=== PATIENT | male | born 1945 | race Caucasian/White ===

== ENCOUNTER → 2018-02-04 09:54 | Outpatient (CLI) | payer MEDICARE, SELFPAY | PROVIDERS: Family Provider Physician Assistant Medical; PCP Physician Assistant Medical; Visit Provider Internal Medicine | DX: E11.621 Type 2 diabetes mellitus with foot ulcer (principal); L97.522 Non-pressure chronic ulcer of other part of left foot with fat layer exposed; L97.512 Non-pressure chronic ulcer of other part of right foot with fat layer exposed | CPT/HCPCS: 11042 ==

== ENCOUNTER → 2018-02-11 09:28 | Outpatient (CLI) | payer MEDICARE, SELFPAY | PROVIDERS: Family Provider Physician Assistant Medical; PCP Physician Assistant Medical; Visit Provider Internal Medicine | DX: E11.621 Type 2 diabetes mellitus with foot ulcer (principal); L97.522 Non-pressure chronic ulcer of other part of left foot with fat layer exposed; L97.512 Non-pressure chronic ulcer of other part of right foot with fat layer exposed; M21.6X1 Other acquired deformities of right foot; Z91.19 Patient's noncompliance with other medical treatment and regimen | CPT/HCPCS: 11042 ==

== ENCOUNTER → 2018-02-18 14:44 | Outpatient (CLI) | payer MEDICARE, SELFPAY | PROVIDERS: Family Provider Physician Assistant Medical; PCP Physician Assistant Medical; Visit Provider Internal Medicine | DX: E11.621 Type 2 diabetes mellitus with foot ulcer (principal); L97.522 Non-pressure chronic ulcer of other part of left foot with fat layer exposed; L97.512 Non-pressure chronic ulcer of other part of right foot with fat layer exposed; L08.9 Local infection of the skin and subcutaneous tissue, unspecified | CPT/HCPCS: 11042; 87070; 87075; 87077; 87147; 87186; 87205 ==

== ENCOUNTER → 2018-02-22 08:30 | Outpatient (CLI) | payer MEDICARE, SELFPAY | PROVIDERS: Family Provider Physician Assistant Medical; PCP Physician Assistant Medical; Visit Provider Internal Medicine | DX: E11.621 Type 2 diabetes mellitus with foot ulcer (principal); L97.522 Non-pressure chronic ulcer of other part of left foot with fat layer exposed; L97.512 Non-pressure chronic ulcer of other part of right foot with fat layer exposed; B95.61 Methicillin susceptible Staphylococcus aureus infection as the cause of diseases classified elsewhere; B95.4 Other streptococcus as the cause of diseases classified elsewhere; M21.6X1 Other acquired deformities of right foot | CPT/HCPCS: 11042 ==

== ENCOUNTER → 2018-02-25 15:35 | Outpatient (CLI) | payer MEDICARE, SELFPAY | PROVIDERS: Family Provider Physician Assistant Medical; PCP Physician Assistant Medical; Visit Provider Internal Medicine | DX: E11.621 Type 2 diabetes mellitus with foot ulcer (principal); L97.522 Non-pressure chronic ulcer of other part of left foot with fat layer exposed; L97.512 Non-pressure chronic ulcer of other part of right foot with fat layer exposed; B95.61 Methicillin susceptible Staphylococcus aureus infection as the cause of diseases classified elsewhere; B95.4 Other streptococcus as the cause of diseases classified elsewhere | CPT/HCPCS: 11042 ==

== ENCOUNTER → 2018-03-01 13:27 | Outpatient (CLI) | payer MEDICARE, SELFPAY ==
--- NOTE | 2018-03-01 | OV.WND_ITS ---
Progress Note Details Patient Name: Nick Drake Patient Number: [id number] PatientPatientDate: 03/01/2018 Clinician: Rina Bentley Clinician Cosigner: Deanna Floyd Physician / Management Engineer: Nando Howe SUBJECTIVE Chief Complaint This information was obtained from the patient Diabetic ulcers to right and left foot. Allergies Minipress (Severity: Severe, Reaction: violent behavior), Vicodin (Severity: Mild, Reaction: itching), nortriptyline (Severity: Moderate), Avandia (Severity: Moderate) HPI This information was obtained from the patient 03/01/18. The patient continues to wear his UPPER SIOUX boot to offload the right foot 1st MTPJ diabetic ulcer and address the significant deformity associated with the partial lateral foot amputation. He does not report significant drainage associated with this ulcer nor the left plantar foot diabetic ulcer since his last. 02/25/18. Seen by Dr. Howe. The patient will complete his course of doxycycline today that's treating the Staph and group G Strep positive culture taken from the right foot diabetic ulcer. He does not report adverse side effects and nor significant drainage from the ulcer or the left plantar foot diabetic ulcer. 02/22/18. Seen by Dr. Howe. The patient is now on doxycycline for the Staph and group G Strep positive culture taken from the right foot diabetic ulcer last week. He notes some bloody drainage from this site on his dressing today but feels this ulcer and the left foot diabetic ulcer have improved over the past few week. He's offloading the right foot which has a partial lateral amputation using his UPPER SIOUX boot as recommended however he's not using a frame walker. He does not report adverse side effects of the antibiotics nor other acute issues today. 02/18/18. Seen by Dr. Howe. The staff report increased drainage associated with both plantar foot 1st MTPJ diabetic ulcers and the patient reports a malodor from the dressings over the past week. He does not report fevers, feeling unwell, or pain in the feet but states his blood sugars have been a bit elevated in the 180s. He's also wearing his UPPER SIOUX boot as recommended on the right foot but states he does not have enough room in his house to use a knee scooter and does not use his frame walker. 02/11/18. Seen by Dr. Howe. The patient continues to wear his UPPER SIOUX boot to offload the right foot 1st MTPJ diabetic ulcer and address the significant deformity associated with the partial lateral foot amputation. He does not report significant drainage associated with this ulcer nor the left plantar foot diabetic ulcer since his last visit however the nurse states the mole skin dressing was applied inappropriately over the left foot ulcer and was overlying the ulcer itself and soaked with drainage. 02/04/18. Seen by Dr. Howe. The patient continues to wear his UPPER SIOUX boot to offload the right foot 1st MTPJ diabetic ulcer and address the significant deformity associated with the partial lateral foot amputation. He does not report significant drainage associated with this ulcer nor the left plantar foot diabetic ulcer since his last visit. 01/28/2018. Seen by Dr. Howe. The patient is now wearing his UPPER SIOUX boot to offload the right foot 1st MTPJ diabetic ulcer and address the significant deformity associated with the partial lateral foot amputation. He does not report significant drainage associated with this ulcer nor the left plantar foot diabetic ulcer since his last visit. 01/26/18. Seen by Dr. Howe. The patient states he has been without his insulin for over a week which is likely the cause of his blood sugars being around 400 over the past few visits. He has also not contacted his orthotics provider regarding the offloading UPPER SIOUX boot to wear on the right foot noting his significant deformity caused by the partial lateral foot amputation. He has not report increased drainage or other acute changes regarding his bilateral diabetic foot ulcers and will complete his course of doxycycline its treated the recent MSSA positive culture tomorrow. He also reports nausea and one episode of emesis earlier today but not other acute issues. 01/21/2018. Seen by Dr. Howe. The patient arrived today with his right foot dressing upside down. His blood sugars are also over 400. The patient does not report increased drainage associated with the right or left diabetic foot ulcers however states his neuropathic pain has been significant over the past 2 days. He also is going to mushroom picker his UPPER SIOUX boot today to help facilitate offloading of the right foot diabetic ulcer noted in he also has a partial lateral amputation on his foot that is contributed significantly 2. Ulcer callus formation. He also continues on doxycycline for he recent MSSA positive wound culture. 01/18/2018. Seen by Dr. Howe. The patient's wound culture from the left foot diabetic ulcer grew MSSA resistant to gentamicin. He is not currently on oral antibiotics and does not report increased drainage from either left right foot diabetic ulcers and is still waiting for his UPPER SIOUX boot to be available to help facilitate better offloading of the right foot noting his partial lateral right foot amputation and severe Charcot deformity. 01/14/18. Seen by Dr. Howe. The patient continues to report moderate drainage from the right and left diabetic foot ulcers over the past few days and he's seen his laser systems engineer who's ordered a UPPER SIOUX boot for the right foot which should be available next week. He has severe bilateral Charcot deformities and partial right lateral foot amputation that contributes to the refractory nature of the ulcers and very heavy callus formation. 01/12/18. Seen by Dr. Howe. The patient reports moderate drainage from the right and left diabetic foot ulcers and he's seen his laser systems engineer who's ordered a UPPER SIOUX boot for the right foot. He has bilateral partial lateral foot amputations which have resulted in refractory calluses of the bilateral plantar MTPJ's and associated DFU's. His blood have been well controlled and his recent hypoglycemic episodes have resolved. 01/07/18. Seen by Dr. Howe. The patient missed his last 2 appointments due to a GI illness last week and she reports some pain in the lateral aspect of the right forefoot but no increased drainage, swelling, or other acute changes of the diabetic foot ulcer. He also does not report any acute issues regarding the left diabetic foot ulcer. Of note, he has significant deformities of both feet due to partial amputations which have each contributed significantly to severe callus formation and the refractory nature of the ulcers. 01/01/18. Seen by Dr. Howe. The patient continues on clindamycin for the chronic right diabetic foot ulcer infection and it is not reported adverse side effects. He also does not report significant drainage associated with either left or right diabetic foot ulcer since his last visit. 12/28/17. Seen by Dr. Howe. The patient does not report increased drainage associated with either right or left foot diabetic ulcers since his last visit. He continues on clindamycin without reporting adverse side effects to treat the chronic right ulcer infection and his blood sugars are well controlled. Of note, he has been attending clinic twice weekly to optimize management of his recurrent and severe apollo-ulcer calluses that are in part due to his severe Charcot deformities and bilateral partial foot amputations. 12/21/17. Seen by Dr. Howe. The patient reports some drainage associated with the right foot diabetic ulcer since his last visit but none associated with the left foot diabetic ulcer. He completed his course of doxycycline today is treating the recent MSSA positive wound culture and is reported adverse side effects, fevers, feeling unwell. He states his blood sugars continue to be well controlled below 180. 12/15/17. Cinthia Howe. The patient's wound culture from the left plantar foot diabetic ulcer his last visit grew MSSA resistant to gentamicin. He does not report increased drainage or pain from either diabetic foot ulcers since his last visit. 12/10/17. Seen by REN Olea. The patient does not report increased drainage from his bilateral diabetic foot ulcers but does report continued odor. Notes a large amount of callous growth. Wound culture from last week showed MSSA and Diphtheroids. He has been applying topical gentamicin. 12/03/17. Seen by Mitch Cota PA-C. The patient reports increased drainage and odor from his bilateral diabetic foot ulcers. He continues to have elevated blood sugars. 11/26/17. Seen by Mitch Cota PA-C. The patient reports that he has decreased his usage of marijuana which he uses for recreation and to treat his neuropathy. He has not had a ground level fall since decreasing his usage. His blood sugars remain >150 and his ulcers' drainage is stable. 11/20/17. Seen by Mitch Cota PA-C. The patient reports no increase in his ulcer drainage from his bilateral lower extremity diabetic ulcers. He has not scheduled an appointment to see his PCP to address his consistently high blood sugars. 11/13/17. Seen by Mitch Cota PA-C. The patient reports stable drainage from his diabetic foot ulcers and continued difficulty keeping his blood sugars below 150. He also reports not wearing his diabetic shoes when at home. 11/09/17. Seen by Mitch Cota PA-C. The patient reports high blood sugars again this week. He does not report increased drainage though he notes callous formation continues to happen quickly between visits. 11/06/17. Seen by Dr. Howe. The patient does not report increased drainage associated with the chronic bilateral diabetic foot ulcers since the last visit. 11/02/17. Seen by Mitch Cota PA-C. The patient reports no increased drainage from his bilateral diabetic foot ulcers. He is not surprised that his blood sugar is low this morning as he did not eat dinner yesterday or breakfast today, citing mild GI discomfort. 10/30/17. Seen by Dr. Howe. The patient missed a few appointments recently due to our facility power outage however he does not report increased drainage or other acute issues regarding his bilateral first MTPJ plantar foot diabetic ulcers. 10/23/17. Seen by Mitch Cota PA-C. The patient reports that he did not take his insulin, or eat this morning. Drainage from his diabetic foot ulcers has been stable. 10/15/17. Seen by Mitch Cota PA-C. The patient reports high blood sugars this week and stable drainage from his foot ulcers. 10/13/17. Seen by Dr. Howe. The patient does not report increased drainage associated with the bilateral plantar foot diabetic ulcers since his last visit. 10/01/17. Seen by Dr. Howe. The patient does not report increased drainage associated with either left or right plantar foot diabetic ulcers since his last visit. 10/01/17. Seen by Dr. Howe. The patient does not report increased drainage associated with either left or right plantar foot diabetic ulcers since his last visit. 09/28/17. Seen by Dr. Howe. The patient does not report increased drainage associated with either left or right plantar foot diabetic ulcers since his last visit. He has been offloading as recommended as well. 09/24/17. Seen by Dr. Howe. The patient reports some increased drainage associated with the right chronic diabetic foot ulcer but none with the left chronic diabetic foot ulcer since his last visit. His blood sugars have been well controlled and he does not report pain in either feet or fevers or feeling unwell. He had been seen twice weekly due to the recent deterioration of the right foot ulcer and need for frequent debridement of the periulcer callus. 09/16/17. Seen by Dr. Howe. The patient does not report significant drainage associated with the bilateral plantar foot diabetic ulcers since last visit and his blood sugars are well controlled over the past week. 09/11/17. Seen by Dr. Howe. The patient states that the right foot diabetic ulcer bled significantly earlier this week when he got out of the shower. He had his INR checked yesterday and it was 3.5. He does not report increased drainage otherwise from either the left or right foot diabetic ulcers since his last visit. He's been seen as twice weekly for the past 2 weeks due to the very heavy accumulation of callus associated with the right foot ulcer. 09/08/17. Seen by Dr. Howe. The patient does not report increased drainage associated with bilateral foot diabetic ulcers since his last visit. 09/04/17. Seen by Dr. Howe. The patient does not report significant drainage associated with the bilateral plantar foot diabetic ulcers since last visit and his blood sugars are well controlled over the past week. 08/31/17. Seen by Dr. Howe. The patient does not report increased drainage associated with the bilateral plantar foot diabetic ulcers since his last visit and he continues on doxycycline for the positive right foot ulcer wound culture. His blood sugars have been well- controlled for the past week and he has had no further episodes of hypoglycemia. 08/26/17. Seen by Dr. Howe. The patient is now on doxycycline resistant MSSA positive wound culture taken from his right diabetic foot ulcer and does not report other side effects. He has picked up his new diabetic shoes and is wearing them as recommended. His blood sugar today is 58 in clinic and he has recently had his short-acting insulin increased by his primary care provider due to frequent episodes of hyperglycemia. He is scheduled to see his PCP again tomorrow to discuss the changes. 08/18/17. Seen by Mitch Cota PA-C. The patient reports a foul odor from his bilateral foot ulcers. He reports that he is feeling much better after an ER trip for hypoxia and his recent O2 saturation readings have been 100%. 08/06/17. Seen by Dr. Howe. The patient reports feeling unwell along with progressive shortness of breath while at rest over the past week. He says he had a low- grade fever at home today and staff report is O2 sats in low 90s upon arrival. He has a history of COPD also with possible admission for pneumonia within the past year. He is here for review of chronic diabetic foot ulcers that have been relatively stable for the past few weeks. 07/28/17. Seen by Mitch Cota PA-C. The patient reports increased drainage and bleeding from his diabetic foot ulcers. 07/20/17. Seen by Mitch Cota PA-C. The patient reports no increase in ulcer drainage since his last evaluation. 07/16/17. Seen by Mitch Cota PA-C. The patient has recently been in hospital where he had a NON-STEMI. He reports a reduction in drainage and wound odor after starting Augmentin. 07/01/17. Seen by Dr. Howe. The patient does not report significant drainage associated with the chronic bilateral plantar foot diabetic ulcers since his last visit. He will be picking up his new diabetic shoes today noting his partial right lateral foot amputation and multiple bilateral toe amputations plus Charcot deformity of both feet are contributing significantly to the recurrent heavy callus formation in the apollo-ulcer areas. He also states that he has not been covering his feet when he is in the shower despite our recommendation to do so. 06/19/17. Seen by Dr. Howe. The patient does not report significant drainage associated with the chronic bilateral plantar MTPJ diabetic ulcers since his last visit. Of note , the patient's blood sugar is 42 in clinic and was 35 earlier this morning. He's mildly symptomatic and is with his son who states the patient's food intake has been a bit less than usual due to limited funds at the end of the month. The patient also admits to trying to keep his blood sugars below 140 at all times and has had the problem of hypoglycemia in our clinic a number of times over the past year. 06/12/17. Seen by Dr. Howe. The patient does not report significant drainage associated with the chronic bilateral plantar MTPJ diabetic ulcers since his last visit. 06/05/17. Seen by Dr. Howe. The patient does not report significant drainage associated with the chronic bilateral plantar MTPJ diabetic ulcers since his last visit. He continues on Augmentin based on the recent wound culture and does not report adverse side effects. He also was seen by Dr. Garcia and his new diabetic shoes have been ordered noting his significant history of right lateral foot amputation and multiple toe amputations plus bilateral Charcot deformities. 05/29/17. Seen by Dr. Howe. The patient's wound culture from 2 days ago of a new right foot diabetic ulcer grew Streptococcus as well as Staph. He does not report increased drainage from this ulcer nor the chronic left foot diabetic ulcer. He is also not yet been seen by podiatry although we did send the referral over a couple weeks ago. His blood sugars continue to be well controlled and of note he has had extensive amputations of both the lateral aspect of the right foot as well as toes on both feet which has contributed significantly to recurrent callus and diabetic ulcer formation. 05/27/17. Seen by Mitch Cota PA-C. The patient reports a new ulcer to his right great toe that he believes has been continuously present for about a week. He denies any trauma to the area though states he may have been walking more lately. He is insensate and notes no pain, though he has seen purulent drainage in the area and notes a foul odor. 05/12/17. Seen by Dr. Howe. The patient does not report significant drainage associated with the chronic left plantar foot diabetic ulcer and he notes that heavy callus again has formed on the right plantar foot surface at the site of his recently healed diabetic ulcer. He has severe bilateral Charcot deformities along with multiple toe amputations that are contributing significantly to health information and the refractory and recurrent nature of his diabetic foot ulcers. He's also asked for us to address his toe nails today as it's been weeks since they've been trimmed. 05/05/17. Seen by Dr. Howe. The patient presents today with low blood sugars in the 40's and states he is feeling unwell in the waiting room. Upon my review he is lucid and eating and his blood sugars have increased into the 50s. He does not report any new problems regarding his chronic left foot diabetic ulcer and states that he has not discussed his hypoglycemia with his primary care provider yet despite having a number of episodes throughout the month. 04/28/17. Seen by Dr. Howe. The patient reports recurrence of his left plantar foot diabetic ulcer over the past week along with some new drainage that's quite malodorous. He does not report pain in the foot nor fevers nor any acute issues regarding his right lateral foot diabetic ulcer. He states his blood sugars continue to be well controlled with most below 120. 04/21/17. Seen by Dr. Howe. The patient does not report pain or drainage associated with the chronic right foot diabetic ulcers since his last visit. 04/14/17. Seen by Dr. Howe. The patient does not report pain or drainage associated with the chronic right foot diabetic ulcers since his last visit. His work diabetic shoe as recommended noting he is a partial right foot and right second toe amputations along with a significant Charcot deformity. 04/07/17. Seen by Dr. Howe. The patient does not report significant drainage or pain associated with the chronic right lower leg diabetic ulcers since his last visit. He snoring softly and she was recommended and reports his blood sugars have been well controlled. Of note, his significant deformity of the right foot including partial lateral amputation as well as second toe amputation and a significant Charcot deformity. 04/02/17. Seen by Dr. Howe. The patient reports that a coin accidentally fell into his right lower leg total contact cast a couple days ago. The staff found a johnson upon removing the cast as well as a new ulcer over the lateral aspect of the right foot. The patient does not report pain at the site nor does staff report significant drainage associated with new ulcer nor the chronic right plantar foot diabetic ulcer. The patient's blood sugars continue to be well controlled and he has no other acute complaints at this time. 03/28/17. Seen by Mitch Cota PA-C. The patient's recent wound culture demonstrated no growth. He has not noted increased drainage since his last evaluation. 03/23/17. Seen by Mitch Cota PA-C. The patient reports no increase in right foot ulcer drainage since his last evaluation. In addition his wound culture demonstrated no growth. 03/17/17. Seen by Dr. Howe. The patient does not report increased drainage associated with the chronic right first MTPJ diabetic ulcer.He completed his course of antibiotics that was treating the recent positive wound culture and does not report adverse side effects. He continues offload with a surgical shoe as well. 03/09/17. Seen by Dr. Howe. The patient does not report pain or significant drainage associated with the recurrent right foot diabetic ulcer. His culture of the ulcer was positive for a staph organism and Acinetobacter however he's not yet been started on antibiotics. He states his blood sugars continue to be well-controlled with most below 150. 03/02/17. Seen by Mitch Cota PA-C. The patient reports no improvement in drainage from his diabetic ulcer of the right foot. He has noted odor at times coming from the ulcer. 02/23/17. Seen by Mitch Cota PA-C. The patient reports no increase in drainage from his diabetic ulcer of the right foot. 02/09/17. Seen by Mitch Cota PA-C. The patient reports that he has just begun taking Bactrim for his infection of his right foot diabetic ulcer. He reports continued purulent drainage and odor. 02/02/17. Seen by Mitch Cota PA-C. The patient returns to our clinic with a new ulcer of his right first metatarsal head. He reportedly smacked his foot hard on the floor, creating this ulcer, in an attempt to stop an episode of neuropathy. 11/10/16. Seen by Mitch Cota PA-C. The patient returns for evaluation of his recently healed ulcer, fearing that it is open again. He has not seen liquid drainage but fears it is draining under the callous. 11/04/16. Seen by Mitch Cota PA-C. The patient does not report any difficulties with his TCC this week. 10/24/16. Seen by Dr. Howe. The patient does not report any problems regarding his TCC and staff do not repot significant drainage on the dressing overlying the left plantar foot diabetic ulcer. His blood sugars remain well controlled with most below 150. 10/20/16 Seen by Mitch Cota PA-C. The patient is here for placement of a TCC to offload his left plantar foot diabetic ulcer. He notes that the drainage from his ulcer has soaked through the TCC under-layers and almost soaked through the cast. 10/15/16. Seen by Dr. Howe. The patient tolerated his TCC with minimal discomfort noting mild pain in the left 1st toe. The staff do not report significant drainage associated with the chronic left plantar foot diabetic ulcer and he states his blood sugars are mostly below 150. He's now been placed in a TCC to optimize offloading needed to accommodate for the left foot Charcot deformity that's lead to recurrent heavy callus formation in the periulcer area. 10/13/16 Seen by Mitch Cota PA-C. The patient reports no increase in drainage from his left foot diabetic non-pressure ulcer since his last evaluation. 09/29/15 Seen by Mitch Cota PA-C. The patient reports no increase in drainage from his chronic left foot diabetic ulcer. He does voice frustration that his wound is taking so long to heal. 09/19/16. Seen by Dr. Howe. The patient does not report increased drainage or other acute issues regarding his chronic left plantar foot diabetic ulcer since his last visit. 09/12/16. Seen by Dr. Howe. The patient does not report significant drainage associated with the chronic left plantar foot diabetic ulcer over the past week. He's applying Kerasal to the periwound callus as recommended and has limited his walking considerably, in addition to wearing an offloading shoe, to minimize callus formation. His blood sugars also remain well controlled with most below 150 and he continues on Bactrim for an infection of the ulcer without reporting adverse side effects. 09/05/16. Seen by Dr. Howe. The patient returns to clinic with recurrent of his left plantar foot diabetic ulcer that he states reopened about 2 weeks ago. He was placed on Keflex by his PCP yesterday due to the appearance of the ulcer and significant drainage. He states his blood sugars are well controlled and he limits his walking to help facilitate offloading. 07/28/16. Seen by Dr. Howe. The patient does not report significant drainage associated with the chronic left plantar foot diabetic ulcer over the past week. He's applying Kerasal to the periwound callus as recommended and states his blood sugars are consistently below 150. He does report ongoing nausea for the past few weeks and states he's on 3 nausea medications but does not know what's causing it. He's working with his PCP on this problem. 07/15/16 Seen by Mitch Cota PA-C. The patient reports no fever chills or pain from his left foot diabetic ulcer since his last evaluation. 07/10/16. Seen by Dr. Howe. The patient does not report significant drainage associated with the chronic left plantar foot diabetic ulcer over the past week. He's applying Kerasal to the periwound callus as recommended and has limited his walking considerably, in addition to wearing an offloading shoe, to minimize callus formation. 07/08/16 Seen by Mitch Cota PA-C. The patient reports no increase in pain or drainage from his ulcer, though he does report nausea and vomiting. After further review, it appears that his PPI prescription has run out and he stopped it abruptly. He has not had associated fever, chills or lower GI symptoms. His blood sugars have reportedly been above 150 this week. The patient reports that he still has problems with callous formation on his feet and will be seeing podiatry. 07/04/16. Seen by Dr. Howe. The patient does not report significant drainage associated with the chronic left plantar foot diabetic ulcer since his last visit. He does report significant nausea and vomiting over the past week however but does not report fever, cough, or other specific symptoms and feels the nausea has started to improve as of yesterday. He states his blood sugars have been well controlled with most below 150 and he's on Augmentin for the recent MSSA and Strep positive wound culture. He's also been applying Kerasal to the periwound callus as recommended and has been limited in his walking the past week due to illness. 06/23/16 Seeb by Mitch Cota PA-C. The patient reports that he believes he has an infection in his foot because his dog has been sniffing and licking his open ulcer. He believes his dog has a nose for infection. He reports a continuous, strong, foul odor from his left plantar foot ulcer for the past 3 days with an associated increase in drainage. In addition he has not been offloading his foot as instructed and is going barefoot at home. 06/16/16 Seen by Mitch Cota PA-C. The patient reports that he is walking barefoot in the house and only wears shoes outside the house. His left foot diabetic ulcer drainage has been stable. 06/02/16 Seen by Mitch Cota PA-C. The patient reports that he is due to have a new orthotic fitted for his deformed left foot to further offload his chronic left foot ulcer. He reports stable drainage from this ulcer. 05/27/16 Seen by Mitch Cota PA-C. The patient reports that he now has a new wound near his chronic left plantar foot diabetic ulcer. The new wound began spontaneously and was noted today. His chronic ulcer has had stable drainage. 05/19/16. Seen by Dr. Howe. The patient does not report significant drainage associated with the chronic left plant foot diabetic ulcer over the past week and he states his blood sugars are well controlled with most below 150. 05/12/16. Seen by Dr. Howe. The patient reports some new pain along the right foot surgical scar but no swelling or drainage from the site. He does not recall injuring the foot and feels he may have been more active over the past week. He does not report significant or drainage associated with the left plantar foot diabetic ulcer and states he's not been able to check his blood sugars due to the fact he ran out of glucometer strips this past week. His blood sugar today is 280. 04/11/16. Seen by Dr. Howe. The patient does not report pain or drainage associated with the chronic right lateral foot diabetic ulcer of the past week. He states his blood sugars are consistently below 150 and he is wearing his offloading shoe is recommended. 04/04/16. Seen by Dr. Howe. 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 He states his blood sugars are mostly below 150 and he's offloading using a surgical offloading shoe. He's now off of antibiotics and is here today with his granddaughter who's assisting with his care. 03/31/16 Seen by Mitch Cota PA-C. The patient has returned from [facility] where he had a 4th ray amputation performed to his right foot. He reports that he was supposed to have follow up appointments with surgery, cardiology and wound care but has not attended any of these appointments due to transportation difficulties. He is unsure of when his sutures are supposed to be removed. 02/28/16 Seen by Mitch Cota PA-C. The patient was seen at [facility] and evaluated by Dr. Monae on an urgent basis as arranged by Dr. Howe at his last visit. The patient reports that Dr. Monae wanted to urgently take him to surgery but the patient would prefer to have Dr. Garcia do it and refused admission to the hospital. 02/21/[address] Howe. The patient does not report pain or significant drainage associated with the Alonzo grade 3 right lateral foot diabetic ulcer and he saw Dr. Garcia , podiatry, this morning who reportedly states she's not able to perform any additional debridement until his right leg vascular status is further evaluated. He had an arterial Doppler scheduled yesterday however both the patient and his son state they were unaware of the appointment. He started taking his Augmentin, which is treating the MSSA and Strep viridans culture from 02/15/16, following the last visit as recommended, states his blood sugars have been consistently below 150 over the past week, and he's offloading by wearing a surgical shoe and significantly limiting his walking. Of note, he's still on supplemental oxygen following his recent hospital discharge and gets short of breath on minimal exertion. Please see my note below from his last visit regarding details of the admission and amputation. 02/15/[address] Howe. The patient does not report pain associated with the right lateral foot diabetic ulcer. He was discharged 4 days ago following a partial ray amputation of the 5th toe and MT due a progressive foot infection that he states occurred over about 2 days prior to being admitted to the hospital. His wound culture on arrival to the ER was polymicrobial and reported on Group C Strep. He was treated with IV Zosyn during the admission and prescribed Augmentin on discharge however he's not yet picked up the prescription. His blood sugars have been relatively well controlled with most below 150 since discharge. Of note, he also had a non-ST elevation VA post-operatively, acute on chronic renal failure with a Cr of 1.8 on discharge, and acute respiratory failure and continues on supplemental oxygen. 12/27/[address] Howe. The patient does not report drainage or pain associated with the chronic right plantar foot diabetic ulcer over the past week. He's not been applying Kerasal to the associated callus as recommended however he does not have diabetic shoes and a new AFO that he's been wearing. His blood sugars also remain relatively well controlled below 150 consistently. 12/06/[address] Howe. The patient does not report pain or significant drainage from the chronic right plantar foot diabetic ulcer. His blood sugars remain well controlled around 120 and he's now wearing his new diabetic shoes and offloading by limiting his walking significantly. He's also applying Kerasal daily to the right foot calluses as recommended. 11/29/[address] Howe. The patient does not report significant drainage from the chronic right plantar foot diabetic ulcer and he states his blood sugars remain well controlled below 150. He's also wearing his diabetic shoes now and limiting his walking to facilitate offloading. 11/23/[address] Howe. The patient reports moderate drainage but no pain associated with the chronic right plantar foot diabetic ulcer. He continues on doxycycline for a polymicrobial positive wound culture and he states his blood sugars remain well controlled with most below 120. 11/15/[address] Howe. The patient's wound culture from the last visit grew Enterobacter, Staph, and group G Strep however he's not yet picked up his prescription for doxycycline. He has at least moderate serosanquinous drainage on the dressing and states he's been a bit more active this past week as his son has been sick and unable to do the shopping. His blood sugar was also elevated yesterday near 200 but has been relatively well controlled prior to that. 11/08/15 Seen by Mitch Cota PA-C. The patient reports that his son is sick and he has been up on his feet taking care of him and has been unable to stay off of his feet. He has noted more drainage from his right plantar foot diabetic ulcer in the past few days. He also reports that his current shoes with inserts are making a large callous on his right heel and he doesn't feel that they offload his ulcer, so he has been trying to walk on the lateral edge of his right foot to offload his ulcer, and now is having lateral right foot pain as a result. 11/01/[address] Howe. The patient admits to being more active over the past two weeks but states there's only been very minimal drainage from the right plantar foot diabetic ulcer. His blood sugars also remain well controlled below 150 consistently. 10/18/[address] Howe. The patient does not report drainage from the right foot plantar diabetic ulcer however he states he has been more active the past week in terms of walking. His blood sugars also remain well controlled below 150. 10/11/[address] Howe. The patient does not report pain or drainage associated with the right plantar foot nor heel diabetic ulcers. 10/04/[address] Howe. The patient does not report drainage from the right plantar foot diabetic ulcer and he continues to use Kerasal daily for the significant right heel callus. His blood sugars are also well controlled below 120 consistently. 09/27/[address] Howe. The patient reports only minimal drainage from the right plantar foot diabetic ulcer and states his blood sugars continue to improve with most between 120 and 180. He's also applying Kerasal to the bilateral foot calluses daily as we've requested. 09/19/[address] Howe. The patient reports significantly decreased drainage from the right plantar foot diabetic ulcer and he'll complete his course of levofloxacin today that treating the polymicrobial wound culture from 09/04/15. His blood sugars are also much better controlled over the past week with most around 150 and very few over 200. 09/12/[address] Howe. The patient continues to report significant drainage from the right plantar diabetic foot ulcer and his wound culture from 09/04/15 grew Strep , Providencia, and Neisseria species. He's now on levofloxacin and does not report adverse effects. He's also no longer experiencing severe hypoglycemic episodes and is working closely with is PCP on adjusting his insulin regimen. His blood sugars due tend to remain over 200 however. 09/07/[address] Howe. The patient continues to report blood sugars as low as the 40's since our visit last week. Regarding his foot ulcers, he reports continued foul smelling drainage from the right foot diabetic ulcer but none from right heel or left foot diabetic ulcer. His blood sugars also may be as high as 300 and he states he's compliant with his diabetes medication regimen and will require as much as 30-40 units of short acting insulin on occasion. He does not report pain in the feet nor fevers or other systemic symptoms. 08/31/[address] Howe. The patient is new to our clinic. On arrival he was not feeling well and was tremulous. The MA checked his blood sugar and is registered 34 which is the lowest the glucometer would read. I spoke with him and he reported feeling very unwell at which time he was urgently transferred to the ER. Of note, he was in the clinic to review bilateral diabetic foot ulcers. He'd also recently lost a son and has been very upset the past week according to staff. Past Medical History This information was obtained from the patient Patient has a medical history of: Chronic Obstructive Pulmonary Disease (COPD) Type II Diabetes (A1c 7.4 on 11/12/2015) PAD Peripheral neuropathy Hypoglycemia CVA Diabetic foot ulcer (Right plantar 1st MTPJ, Alonzo grade II) Coronary Artery Disease (CAD) (s/p VA during admission on 02/04/2016) Lumbar strain CHF Hyperlipidemia CKD stage 3 Gout Diabetic foot ulcer - 02/04/2016 (right lateral foot s/p partial ray amputation; Alonzo grade 3; MSSA and Strep viridans cultured) Complaints and Symptoms This information was obtained from the patient Patient complains of: General Notes: I have reviewed and concur with the Review of Systems and Past Family Social History documents completed by the clinician, I have reviewed and concur with the Wound Assessment document completed by the clinician Cardiovascular (Central): Dyspnea on Exertion Ear/Nose/Mouth/Throat: Hearing Loss / Aid Integumentary (Hair/Skin/Nails): Open Sore Musculoskeletal: Assistive Devices, Deformities Neurological: Loss of Protective Sensation Prior Wound History: Drainage, Erythema, Malodor Patient denies complaints or symptoms related to: Cardiovascular (Central/Peripheral): Intermittent Claudication, Lower extremity (leg) resting pain Constitutional Symptoms (General Health): Chills, Fever Gastrointestinal (GI): Nausea / Vomiting, Stomach/abdominal pain Hematologic/Lymphatic: Bleeding / Clotting Disorders, Bleeding Tendency Musculoskeletal: Muscle Weakness Prior Wound History: Bleeding, Pain Psychiatric: Anxiety, Memory Loss Respiratory: Oxygen Use, Shortness of Breath OBJECTIVE Constitutional BP elevated; Afebrile; Alert and in no distress. Well developed. Alert. Clean appearing.. Height/Length: 72 in (182.88 cm), Weight: 223.8 lbs (101.73 kgs), BMI: 30.3, Temperature: 98.1 ?F (36.72 ?C), Pulse: 69 bpm, Respiratory Rate: 18 breaths/min, Blood Pressure: 141/71 mmHg, Capillary Blood Glucose: 106 mg/dl, Pulse Oximetry: 96 %. Vital Signs Notes: Glucose per patient. Ears, Nose, Mouth, and Throat: Mild hearing deficit. Respiratory: No respiratory distress. Even respirations and without use of accessory muscles.. Cardiovascular: monophasic pedal pulses bilaterally. Affected extremity exhibits no peripheral edema or cyanosis, is warm, and is well perfused. Capillary refill is less than 2 seconds. Musculoskeletal: Right lateral foot partial amputation. Significant left foot eversion. Integumentary (Hair, Skin) No periwound erythema, warmth, or significant drainage. No periwound rashes appreciated or noted otherwise.. Refer to appropriate clinician wound documentation for this visit; right and left foot ulcers extend to subcut with bases partially covered with pink granulation, remainder fibrin and slough. Significant amount of callus in the periulcer areas. Wound #11 Left Metatarsal head first is a chronic Alonzo Grade 2 Diabetic Ulcer and has received a status of Not Healed. Subsequent wound encounter measurements are 1.4cm length x 0.9cm width x 0.5cm depth, with an area of 1.26 sq cm and a volume of 0.63 cubic cm. No tunneling has been noted. No sinus tract has been noted. No undermining has been noted. There is a moderate amount of sero-sanguineous drainage noted which has no odor. The patient reports no wound pain due to the wound being insensate. The wound margin is callus. Wound bed has No epithelialization, No eschar, No slough, Yes bright red , pink, spongy granulation. The periwound skin color is normal. The periwound skin exhibited: Callus, Moist , Maceration. The periwound skin did not exhibit: Brawny Induration, Edema, Excoriation, Induration, Crepitus, Fluctuance, Friable, Rash, Dry/Scaly. The temperature of the periwound skin is WNL. Periwound skin does not exhibit signs or symptoms of infection. Local Pulse is Palpable. Wound #12 Right, Plantar Metatarsal head first is a Alonzo Grade 2 Diabetic Ulcer and has received a status of Not Healed. Subsequent wound encounter measurements are 2cm length x 0.9cm width x 0.3cm depth, with an area of 1.8 sq cm and a volume of 0.54 cubic cm. No tunneling has been noted. No sinus tract has been noted. No undermining has been noted. There is a moderate amount of sanguineous drainage noted which has no odor. The patient reports no wound pain due to the wound being insensate. The wound margin is callus. Wound bed has Yes epithelialization, No eschar, No slough, Yes bright red, pink, firm granulation. The periwound skin color is normal. The periwound skin exhibited: Callus, Moist , Maceration. The periwound skin did not exhibit: Brawny Induration, Edema, Excoriation, Induration, Crepitus, Fluctuance, Friable, Rash, Dry/Scaly. The temperature of the periwound skin is WNL. Periwound skin does not exhibit signs or symptoms of infection. Local Pulse is Normal. Neurological: Cranial nerves grossly intact with symmetric function normal by informal observation.. ASSESSMENT Active Problems ICD-10 (Encounter Diagnosis) L97.522 - Non-pressure chronic ulcer of other part of left foot with fat layer exposed (Encounter Diagnosis) L97.512 - Non-pressure chronic ulcer of other part of right foot with fat layer exposed (Encounter Diagnosis) E11.621 - Type 2 diabetes mellitus with foot ulcer (Encounter Diagnosis) I70.299 - Other atherosclerosis of [place] arteries of extremities, unspecified extremity PROCEDURES Wound #11 Wound #11 (Diabetic Ulcer) is located on the left metatarsal head first. A skin/ subcutaneous tissue level surgical debridement with a total area debrided of 1.5 sq cm was performed by Nando Howe MD. Subcutaneous was removed along with devitalized tissue: callus and exudate. The following instrument(s) were used: curette. Pain control was achieved using 4% Lido. A time out was conducted prior to the start of the procedure. A moderate amount of bleeding was controlled with silver nitrate. The procedure was tolerated well with a pain level of 0 throughout and a pain level of 0 following the procedure. Post Debridement Measurements: 1.5cm length x 1cm width x 0.4cm depth; with an area of 1.5 sq cm and a volume of 0.6 cubic cm; Wound #12 Wound #12 (Diabetic Ulcer) is located on the right, plantar metatarsal head first. A skin/subcutaneous tissue level surgical debridement with a total area debrided of 2 sq cm was performed by Nando Howe MD. Subcutaneous was removed along with devitalized tissue: callus and exudate. The following instrument(s) were used: curette. Pain control was achieved using 4% Lido. A time out was conducted prior to the start of the procedure. A moderate amount of bleeding was controlled with silver nitrate. The procedure was tolerated well with a pain level of 0 throughout and a pain level of 0 following the procedure. Post Debridement Measurements: 2cm length x 1cm width x 0.3cm depth; with an area of 2 sq cm and a volume of 0.6 cubic cm; Additional Information Muscle fascia or bone removed and sent to pathology?: No Muscle fascia or bone removed and sent to pathology?: No PLAN Wound Orders: Wound #11 Left Metatarsal head first Anesthetic Topical Xylocaine to wound bed. - In clinic only. Cleanser Cleanse Wound: - Normal saline and gauze, may use distilled water at home. May Shower. - Keep covered in shower with cast protector or plastic bag. Dressings Primary dressing: - Puracol collagen to wound base. Cover and secure with: - Foam and hypafix tape. Change Dressing: - Daily. Wound #12 Right, Plantar Metatarsal head first Anesthetic Topical Xylocaine to wound bed. - In clinic only. Cleanser Cleanse Wound: - Normal saline and gauze, may use distilled water at home. May Shower. - Keep covered in shower with cast protector or plastic bag. Dressings Primary dressing: - Puracol collagen to wound base. Cover and secure with: - Foam and hypafix tape. Change Dressing: - Daily. Additional Orders: Off-Loading Keep weight off: - Both feet as much as possible. Use/Wear when Walking: - Please use a walker to allow for more off-loading. Continue wearing [place] boot on right foot. Follow-Up Appointments Return Appointment: - - Mondays and . Other information: If you develop fever, chills, increased pain, drainage, redness or swelling please call our office. If after hours, respond to the ER. Should you experience any significant changes in your wound(s) or have any questions regarding your home care instructions please contact the wound center @ [phone]. If after hours, contact your primary care physician or go to the hospital emergency room. Scribing Attestation I attest, as the nurse, that I scribed these orders for the physician. Cardiovascular: Arterial Doppler Studies - Bilateral. I've reviewed the clinician's documentation and agree with the evaluation and plan as written. In addition the patient's ulcers demonstrate evidence of non-viable devitalized tissue and they will continue to benefit from sharp debridement to help promote granulation and expedite healing. Also, based on my exam today there's a degree of bilateral PAD and I've ordered arterial Dopplers of both lower legs to further evaluate. Electronic Signature(s) Signed By: Date: Nando Howe MD 03/02/2018 10:10:58 Nando Howe MD 03/02/2018 10:10:58 Entered By: Nando Howe on 03/01/2018 13:33:18
== END ==
PROVIDERS: Family Provider Physician Assistant Medical; PCP Physician Assistant Medical; Visit Provider Internal Medicine
DX: E11.621 Type 2 diabetes mellitus with foot ulcer (principal); L97.522 Non-pressure chronic ulcer of other part of left foot with fat layer exposed; L97.512 Non-pressure chronic ulcer of other part of right foot with fat layer exposed; I70.299 Other atherosclerosis of native arteries of extremities, unspecified extremity
CPT/HCPCS: 11042

== ENCOUNTER → 2018-03-04 13:17 | Outpatient (CLI) | payer MEDICARE, SELFPAY ==
--- NOTE | 2018-03-04 | OV.WND_ITS ---
Progress Note Details Patient Name: Nick Drake Patient Number: [id number] PatientPatientDate: 03/04/2018 Clinician: Deanna Floyd Clinician Cosigner: Mary Rosales Physician / Radio Rigger: Nando Howe SUBJECTIVE Chief Complaint This information was obtained from the patient Diabetic ulcers to right and left foot. Allergies Minipress (Severity: Severe, Reaction: violent behavior), Vicodin (Severity: Mild, Reaction: itching), nortriptyline (Severity: Moderate), Avandia (Severity: Moderate) HPI This information was obtained from the patient 03/04/18. Seen by Dr. Howe. The patient continues to wear his NOOKSACK boot to offload the right foot 1st MTPJ diabetic ulcer and address the significant deformity associated with the partial lateral foot amputation and he does not report increased drainage associated with this ulcer nor the left plantar foot diabetic ulcer since his last. He recently completed a course of doxycycline to treat a group G Strep positive culture and is applying iodosorb to the ulcers to help manage the persistent drainage. 03/01/18. Seen by Dr. Howe. The patient continues to wear his NOOKSACK boot to offload the right foot 1st MTPJ diabetic ulcer and address the significant deformity associated with the partial lateral foot amputation. He does not report significant drainage associated with this ulcer nor the left plantar foot diabetic ulcer since his last. 02/25/18. Seen by Dr. Howe. The patient will complete his course of doxycycline today that's treating the Staph and group G Strep positive culture taken from the right foot diabetic ulcer. He does not report adverse side effects and nor significant drainage from the ulcer or the left plantar foot diabetic ulcer. 02/22/18. Seen by Dr. Howe. The patient is now on doxycycline for the Staph and group G Strep positive culture taken from the right foot diabetic ulcer last week. He notes some bloody drainage from this site on his dressing today but feels this ulcer and the left foot diabetic ulcer have improved over the past few week. He's offloading the right foot which has a partial lateral amputation using his NOOKSACK boot as recommended however he's not using a frame walker. He does not report adverse side effects of the antibiotics nor other acute issues today. 02/18/18. Seen by Dr. Howe. The staff report increased drainage associated with both plantar foot 1st MTPJ diabetic ulcers and the patient reports a malodor from the dressings over the past week. He does not report fevers, feeling unwell, or pain in the feet but states his blood sugars have been a bit elevated in the 180s. He's also wearing his NOOKSACK boot as recommended on the right foot but states he does not have enough room in his house to use a knee scooter and does not use his frame walker. 02/11/18. Seen by Dr. Howe. The patient continues to wear his NOOKSACK boot to offload the right foot 1st MTPJ diabetic ulcer and address the significant deformity associated with the partial lateral foot amputation. He does not report significant drainage associated with this ulcer nor the left plantar foot diabetic ulcer since his last visit however the nurse states the mole skin dressing was applied inappropriately over the left foot ulcer and was overlying the ulcer itself and soaked with drainage. 02/04/18. Seen by Dr. Howe. The patient continues to wear his NOOKSACK boot to offload the right foot 1st MTPJ diabetic ulcer and address the significant deformity associated with the partial lateral foot amputation. He does not report significant drainage associated with this ulcer nor the left plantar foot diabetic ulcer since his last visit. 01/28/2018. Seen by Dr. Howe. The patient is now wearing his NOOKSACK boot to offload the right foot 1st MTPJ diabetic ulcer and address the significant deformity associated with the partial lateral foot amputation. He does not report significant drainage associated with this ulcer nor the left plantar foot diabetic ulcer since his last visit. 01/26/18. Seen by Dr. Howe. The patient states he has been without his insulin for over a week which is likely the cause of his blood sugars being around 400 over the past few visits. He has also not contacted his orthotics provider regarding the offloading NOOKSACK boot to wear on the right foot noting his significant deformity caused by the partial lateral foot amputation. He has not report increased drainage or other acute changes regarding his bilateral diabetic foot ulcers and will complete his course of doxycycline its treated the recent MSSA positive culture tomorrow. He also reports nausea and one episode of emesis earlier today but not other acute issues. 01/21/2018. Seen by Dr. Howe. The patient arrived today with his right foot dressing upside down. His blood sugars are also over 400. The patient does not report increased drainage associated with the right or left diabetic foot ulcers however states his neuropathic pain has been significant over the past 2 days. He also is going to hand picker his NOOKSACK boot today to help facilitate offloading of the right foot diabetic ulcer noted in he also has a partial lateral amputation on his foot that is contributed significantly 2. Ulcer callus formation. He also continues on doxycycline for he recent MSSA positive wound culture. 01/18/2018. Seen by Dr. Howe. The patient's wound culture from the left foot diabetic ulcer grew MSSA resistant to gentamicin. He is not currently on oral antibiotics and does not report increased drainage from either left right foot diabetic ulcers and is still waiting for his NOOKSACK boot to be available to help facilitate better offloading of the right foot noting his partial lateral right foot amputation and severe Charcot deformity. 01/14/18. Seen by Dr. Howe. The patient continues to report moderate drainage from the right and left diabetic foot ulcers over the past few days and he's seen his childcare provider who's ordered a NOOKSACK boot for the right foot which should be available next week. He has severe bilateral Charcot deformities and partial right lateral foot amputation that contributes to the refractory nature of the ulcers and very heavy callus formation. 01/12/18. Seen by Dr. Howe. The patient reports moderate drainage from the right and left diabetic foot ulcers and he's seen his childcare provider who's ordered a NOOKSACK boot for the right foot. He has bilateral partial lateral foot amputations which have resulted in refractory calluses of the bilateral plantar MTPJ's and associated DFU's. His blood have been well controlled and his recent hypoglycemic episodes have resolved. 01/07/18. Seen by Dr. Howe. The patient missed his last 2 appointments due to a GI illness last week and she reports some pain in the lateral aspect of the right forefoot but no increased drainage, swelling, or other acute changes of the diabetic foot ulcer. He also does not report any acute issues regarding the left diabetic foot ulcer. Of note, he has significant deformities of both feet due to partial amputations which have each contributed significantly to severe callus formation and the refractory nature of the ulcers. 01/01/18. Seen by Dr. Howe. The patient continues on clindamycin for the chronic right diabetic foot ulcer infection and it is not reported adverse side effects. He also does not report significant drainage associated with either left or right diabetic foot ulcer since his last visit. 12/28/17. Seen by Dr. Howe. The patient does not report increased drainage associated with either right or left foot diabetic ulcers since his last visit. He continues on clindamycin without reporting adverse side effects to treat the chronic right ulcer infection and his blood sugars are well controlled. Of note, he has been attending clinic twice weekly to optimize management of his recurrent and severe apollo-ulcer calluses that are in part due to his severe Charcot deformities and bilateral partial foot amputations. 12/21/17. Seen by Dr. Howe. The patient reports some drainage associated with the right foot diabetic ulcer since his last visit but none associated with the left foot diabetic ulcer. He completed his course of doxycycline today is treating the recent MSSA positive wound culture and is reported adverse side effects, fevers, feeling unwell. He states his blood sugars continue to be well controlled below 180. 12/15/17. Cinthia Howe. The patient's wound culture from the left plantar foot diabetic ulcer his last visit grew MSSA resistant to gentamicin. He does not report increased drainage or pain from either diabetic foot ulcers since his last visit. 12/10/17. Seen by REN Olea. The patient does not report increased drainage from his bilateral diabetic foot ulcers but does report continued odor. Notes a large amount of callous growth. Wound culture from last week showed MSSA and Diphtheroids. He has been applying topical gentamicin. 12/03/17. Seen by Mitch Cota PA-C. The patient reports increased drainage and odor from his bilateral diabetic foot ulcers. He continues to have elevated blood sugars. 11/26/17. Seen by Mitch Cota PA-C. The patient reports that he has decreased his usage of marijuana which he uses for recreation and to treat his neuropathy. He has not had a ground level fall since decreasing his usage. His blood sugars remain >150 and his ulcers' drainage is stable. 11/20/17. Seen by Mitch Cota PA-C. The patient reports no increase in his ulcer drainage from his bilateral lower extremity diabetic ulcers. He has not scheduled an appointment to see his PCP to address his consistently high blood sugars. 11/13/17. Seen by Mitch Cota PA-C. The patient reports stable drainage from his diabetic foot ulcers and continued difficulty keeping his blood sugars below 150. He also reports not wearing his diabetic shoes when at home. 11/09/17. Seen by Mitch Cota PA-C. The patient reports high blood sugars again this week. He does not report increased drainage though he notes callous formation continues to happen quickly between visits. 11/06/17. Seen by Dr. Howe. The patient does not report increased drainage associated with the chronic bilateral diabetic foot ulcers since the last visit. 11/02/17. Seen by Mitch Cota PA-C. The patient reports no increased drainage from his bilateral diabetic foot ulcers. He is not surprised that his blood sugar is low this morning as he did not eat dinner yesterday or breakfast today, citing mild GI discomfort. 10/30/17. Seen by Dr. Howe. The patient missed a few appointments recently due to our facility power outage however he does not report increased drainage or other acute issues regarding his bilateral first MTPJ plantar foot diabetic ulcers. 10/23/17. Seen by Mitch Cota PA-C. The patient reports that he did not take his insulin, or eat this morning. Drainage from his diabetic foot ulcers has been stable. 10/15/17. Seen by Mitch Cota PA-C. The patient reports high blood sugars this week and stable drainage from his foot ulcers. 10/13/17. Seen by Dr. Howe. The patient does not report increased drainage associated with the bilateral plantar foot diabetic ulcers since his last visit. 10/01/17. Seen by Dr. Howe. The patient does not report increased drainage associated with either left or right plantar foot diabetic ulcers since his last visit. 10/01/17. Seen by Dr. Howe. The patient does not report increased drainage associated with either left or right plantar foot diabetic ulcers since his last visit. 09/28/17. Seen by Dr. Howe. The patient does not report increased drainage associated with either left or right plantar foot diabetic ulcers since his last visit. He has been offloading as recommended as well. 09/24/17. Seen by Dr. Howe. The patient reports some increased drainage associated with the right chronic diabetic foot ulcer but none with the left chronic diabetic foot ulcer since his last visit. His blood sugars have been well controlled and he does not report pain in either feet or fevers or feeling unwell. He had been seen twice weekly due to the recent deterioration of the right foot ulcer and need for frequent debridement of the periulcer callus. 09/16/17. Seen by Dr. Howe. The patient does not report significant drainage associated with the bilateral plantar foot diabetic ulcers since last visit and his blood sugars are well controlled over the past week. 09/11/17. Seen by Dr. Howe. The patient states that the right foot diabetic ulcer bled significantly earlier this week when he got out of the shower. He had his INR checked yesterday and it was 3.5. He does not report increased drainage otherwise from either the left or right foot diabetic ulcers since his last visit. He's been seen as twice weekly for the past 2 weeks due to the very heavy accumulation of callus associated with the right foot ulcer. 09/08/17. Seen by Dr. Howe. The patient does not report increased drainage associated with bilateral foot diabetic ulcers since his last visit. 09/04/17. Seen by Dr. Howe. The patient does not report significant drainage associated with the bilateral plantar foot diabetic ulcers since last visit and his blood sugars are well controlled over the past week. 08/31/17. Seen by Dr. Howe. The patient does not report increased drainage associated with the bilateral plantar foot diabetic ulcers since his last visit and he continues on doxycycline for the positive right foot ulcer wound culture. His blood sugars have been well- controlled for the past week and he has had no further episodes of hypoglycemia. 08/26/17. Seen by Dr. Howe. The patient is now on doxycycline resistant MSSA positive wound culture taken from his right diabetic foot ulcer and does not report other side effects. He has picked up his new diabetic shoes and is wearing them as recommended. His blood sugar today is 58 in clinic and he has recently had his short-acting insulin increased by his primary care provider due to frequent episodes of hyperglycemia. He is scheduled to see his PCP again tomorrow to discuss the changes. 08/18/17. Seen by Mitch Cota PA-C. The patient reports a foul odor from his bilateral foot ulcers. He reports that he is feeling much better after an ER trip for hypoxia and his recent O2 saturation readings have been 100%. 08/06/17. Seen by Dr. Howe. The patient reports feeling unwell along with progressive shortness of breath while at rest over the past week. He says he had a low- grade fever at home today and staff report is O2 sats in low 90s upon arrival. He has a history of COPD also with possible admission for pneumonia within the past year. He is here for review of chronic diabetic foot ulcers that have been relatively stable for the past few weeks. 07/28/17. Seen by Mitch Cota PA-C. The patient reports increased drainage and bleeding from his diabetic foot ulcers. 07/20/17. Seen by Mitch Cota PA-C. The patient reports no increase in ulcer drainage since his last evaluation. 07/16/17. Seen by Mitch Cota PA-C. The patient has recently been in hospital where he had a NON-STEMI. He reports a reduction in drainage and wound odor after starting Augmentin. 07/01/17. Seen by Dr. Howe. The patient does not report significant drainage associated with the chronic bilateral plantar foot diabetic ulcers since his last visit. He will be picking up his new diabetic shoes today noting his partial right lateral foot amputation and multiple bilateral toe amputations plus Charcot deformity of both feet are contributing significantly to the recurrent heavy callus formation in the apollo-ulcer areas. He also states that he has not been covering his feet when he is in the shower despite our recommendation to do so. 06/19/17. Seen by Dr. Howe. The patient does not report significant drainage associated with the chronic bilateral plantar MTPJ diabetic ulcers since his last visit. Of note , the patient's blood sugar is 42 in clinic and was 35 earlier this morning. He's mildly symptomatic and is with his son who states the patient's food intake has been a bit less than usual due to limited funds at the end of the month. The patient also admits to trying to keep his blood sugars below 140 at all times and has had the problem of hypoglycemia in our clinic a number of times over the past year. 06/12/17. Seen by Dr. Howe. The patient does not report significant drainage associated with the chronic bilateral plantar MTPJ diabetic ulcers since his last visit. 06/05/17. Seen by Dr. Howe. The patient does not report significant drainage associated with the chronic bilateral plantar MTPJ diabetic ulcers since his last visit. He continues on Augmentin based on the recent wound culture and does not report adverse side effects. He also was seen by Dr. Garcia and his new diabetic shoes have been ordered noting his significant history of right lateral foot amputation and multiple toe amputations plus bilateral Charcot deformities. 05/29/17. Seen by Dr. Howe. The patient's wound culture from 2 days ago of a new right foot diabetic ulcer grew Streptococcus as well as Staph. He does not report increased drainage from this ulcer nor the chronic left foot diabetic ulcer. He is also not yet been seen by podiatry although we did send the referral over a couple weeks ago. His blood sugars continue to be well controlled and of note he has had extensive amputations of both the lateral aspect of the right foot as well as toes on both feet which has contributed significantly to recurrent callus and diabetic ulcer formation. 05/27/17. Seen by Mitch Cota PA-C. The patient reports a new ulcer to his right great toe that he believes has been continuously present for about a week. He denies any trauma to the area though states he may have been walking more lately. He is insensate and notes no pain, though he has seen purulent drainage in the area and notes a foul odor. 05/12/17. Seen by Dr. Howe. The patient does not report significant drainage associated with the chronic left plantar foot diabetic ulcer and he notes that heavy callus again has formed on the right plantar foot surface at the site of his recently healed diabetic ulcer. He has severe bilateral Charcot deformities along with multiple toe amputations that are contributing significantly to health information and the refractory and recurrent nature of his diabetic foot ulcers. He's also asked for us to address his toe nails today as it's been weeks since they've been trimmed. 05/05/17. Seen by Dr. Howe. The patient presents today with low blood sugars in the 40's and states he is feeling unwell in the waiting room. Upon my review he is lucid and eating and his blood sugars have increased into the 50s. He does not report any new problems regarding his chronic left foot diabetic ulcer and states that he has not discussed his hypoglycemia with his primary care provider yet despite having a number of episodes throughout the month. 04/28/17. Seen by Dr. Howe. The patient reports recurrence of his left plantar foot diabetic ulcer over the past week along with some new drainage that's quite malodorous. He does not report pain in the foot nor fevers nor any acute issues regarding his right lateral foot diabetic ulcer. He states his blood sugars continue to be well controlled with most below 120. 04/21/17. Seen by Dr. Howe. The patient does not report pain or drainage associated with the chronic right foot diabetic ulcers since his last visit. 04/14/17. Seen by Dr. Howe. The patient does not report pain or drainage associated with the chronic right foot diabetic ulcers since his last visit. His work diabetic shoe as recommended noting he is a partial right foot and right second toe amputations along with a significant Charcot deformity. 04/07/17. Seen by Dr. Howe. The patient does not report significant drainage or pain associated with the chronic right lower leg diabetic ulcers since his last visit. He snoring softly and she was recommended and reports his blood sugars have been well controlled. Of note, his significant deformity of the right foot including partial lateral amputation as well as second toe amputation and a significant Charcot deformity. 04/02/17. Seen by Dr. Howe. The patient reports that a coin accidentally fell into his right lower leg total contact cast a couple days ago. The staff found a johnson upon removing the cast as well as a new ulcer over the lateral aspect of the right foot. The patient does not report pain at the site nor does staff report significant drainage associated with new ulcer nor the chronic right plantar foot diabetic ulcer. The patient's blood sugars continue to be well controlled and he has no other acute complaints at this time. 03/28/17. Seen by Mitch Cota PA-C. The patient's recent wound culture demonstrated no growth. He has not noted increased drainage since his last evaluation. 03/23/17. Seen by Mitch Cota PA-C. The patient reports no increase in right foot ulcer drainage since his last evaluation. In addition his wound culture demonstrated no growth. 03/17/17. Seen by Dr. Howe. The patient does not report increased drainage associated with the chronic right first MTPJ diabetic ulcer.He completed his course of antibiotics that was treating the recent positive wound culture and does not report adverse side effects. He continues offload with a surgical shoe as well. 03/09/17. Seen by Dr. Howe. The patient does not report pain or significant drainage associated with the recurrent right foot diabetic ulcer. His culture of the ulcer was positive for a staph organism and Acinetobacter however he's not yet been started on antibiotics. He states his blood sugars continue to be well-controlled with most below 150. 03/02/17. Seen by Mitch Cota PA-C. The patient reports no improvement in drainage from his diabetic ulcer of the right foot. He has noted odor at times coming from the ulcer. 02/23/17. Seen by Mitch Cota PA-C. The patient reports no increase in drainage from his diabetic ulcer of the right foot. 02/09/17. Seen by Mitch Cota PA-C. The patient reports that he has just begun taking Bactrim for his infection of his right foot diabetic ulcer. He reports continued purulent drainage and odor. 02/02/17. Seen by Mitch Cota PA-C. The patient returns to our clinic with a new ulcer of his right first metatarsal head. He reportedly smacked his foot hard on the floor, creating this ulcer, in an attempt to stop an episode of neuropathy. 11/10/16. Seen by Mitch Cota PA-C. The patient returns for evaluation of his recently healed ulcer, fearing that it is open again. He has not seen liquid drainage but fears it is draining under the callous. 11/04/16. Seen by Mitch Cota PA-C. The patient does not report any difficulties with his TCC this week. 10/24/16. Seen by Dr. Howe. The patient does not report any problems regarding his TCC and staff do not repot significant drainage on the dressing overlying the left plantar foot diabetic ulcer. His blood sugars remain well controlled with most below 150. 10/20/16 Seen by Mitch Cota PA-C. The patient is here for placement of a TCC to offload his left plantar foot diabetic ulcer. He notes that the drainage from his ulcer has soaked through the TCC under-layers and almost soaked through the cast. 10/15/16. Seen by Dr. Howe. The patient tolerated his TCC with minimal discomfort noting mild pain in the left 1st toe. The staff do not report significant drainage associated with the chronic left plantar foot diabetic ulcer and he states his blood sugars are mostly below 150. He's now been placed in a TCC to optimize offloading needed to accommodate for the left foot Charcot deformity that's lead to recurrent heavy callus formation in the periulcer area. 10/13/16 Seen by Mitch Cota PA-C. The patient reports no increase in drainage from his left foot diabetic non-pressure ulcer since his last evaluation. 09/29/15 Seen by Mitch Cota PA-C. The patient reports no increase in drainage from his chronic left foot diabetic ulcer. He does voice frustration that his wound is taking so long to heal. 09/19/16. Seen by Dr. Howe. The patient does not report increased drainage or other acute issues regarding his chronic left plantar foot diabetic ulcer since his last visit. 09/12/16. Seen by Dr. Howe. The patient does not report significant drainage associated with the chronic left plantar foot diabetic ulcer over the past week. He's applying Kerasal to the periwound callus as recommended and has limited his walking considerably, in addition to wearing an offloading shoe, to minimize callus formation. His blood sugars also remain well controlled with most below 150 and he continues on Bactrim for an infection of the ulcer without reporting adverse side effects. 09/05/16. Seen by Dr. Howe. The patient returns to clinic with recurrent of his left plantar foot diabetic ulcer that he states reopened about 2 weeks ago. He was placed on Keflex by his PCP yesterday due to the appearance of the ulcer and significant drainage. He states his blood sugars are well controlled and he limits his walking to help facilitate offloading. 07/28/16. Seen by Dr. Howe. The patient does not report significant drainage associated with the chronic left plantar foot diabetic ulcer over the past week. He's applying Kerasal to the periwound callus as recommended and states his blood sugars are consistently below 150. He does report ongoing nausea for the past few weeks and states he's on 3 nausea medications but does not know what's causing it. He's working with his PCP on this problem. 07/15/16 Seen by Mitch Cota PA-C. The patient reports no fever chills or pain from his left foot diabetic ulcer since his last evaluation. 07/10/16. Seen by Dr. Howe. The patient does not report significant drainage associated with the chronic left plantar foot diabetic ulcer over the past week. He's applying Kerasal to the periwound callus as recommended and has limited his walking considerably, in addition to wearing an offloading shoe, to minimize callus formation. 07/08/16 Seen by Mitch Cota PA-C. The patient reports no increase in pain or drainage from his ulcer, though he does report nausea and vomiting. After further review, it appears that his PPI prescription has run out and he stopped it abruptly. He has not had associated fever, chills or lower GI symptoms. His blood sugars have reportedly been above 150 this week. The patient reports that he still has problems with callous formation on his feet and will be seeing podiatry. 07/04/16. Seen by Dr. Howe. The patient does not report significant drainage associated with the chronic left plantar foot diabetic ulcer since his last visit. He does report significant nausea and vomiting over the past week however but does not report fever, cough, or other specific symptoms and feels the nausea has started to improve as of yesterday. He states his blood sugars have been well controlled with most below 150 and he's on Augmentin for the recent MSSA and Strep positive wound culture. He's also been applying Kerasal to the periwound callus as recommended and has been limited in his walking the past week due to illness. 06/23/16 Seeb by Mitch Cota PA-C. The patient reports that he believes he has an infection in his foot because his dog has been sniffing and licking his open ulcer. He believes his dog has a nose for infection. He reports a continuous, strong, foul odor from his left plantar foot ulcer for the past 3 days with an associated increase in drainage. In addition he has not been offloading his foot as instructed and is going barefoot at home. 06/16/16 Seen by Mitch Cota PA-C. The patient reports that he is walking barefoot in the house and only wears shoes outside the house. His left foot diabetic ulcer drainage has been stable. 06/02/16 Seen by Mitch Cota PA-C. The patient reports that he is due to have a new orthotic fitted for his deformed left foot to further offload his chronic left foot ulcer. He reports stable drainage from this ulcer. 05/27/16 Seen by Mitch Cota PA-C. The patient reports that he now has a new wound near his chronic left plantar foot diabetic ulcer. The new wound began spontaneously and was noted today. His chronic ulcer has had stable drainage. 05/19/16. Seen by Dr. Howe. The patient does not report significant drainage associated with the chronic left plant foot diabetic ulcer over the past week and he states his blood sugars are well controlled with most below 150. 05/12/16. Seen by Dr. Howe. The patient reports some new pain along the right foot surgical scar but no swelling or drainage from the site. He does not recall injuring the foot and feels he may have been more active over the past week. He does not report significant or drainage associated with the left plantar foot diabetic ulcer and states he's not been able to check his blood sugars due to the fact he ran out of glucometer strips this past week. His blood sugar today is 280. 04/11/16. Seen by Dr. Howe. The patient does not report pain or drainage associated with the chronic right lateral foot diabetic ulcer of the past week. He states his blood sugars are consistently below 150 and he is wearing his offloading shoe is recommended. 04/04/16. Seen by Dr. Howe. 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 He states his blood sugars are mostly below 150 and he's offloading using a surgical offloading shoe. He's now off of antibiotics and is here today with his granddaughter who's assisting with his care. 03/31/16 Seen by Mitch Cota PA-C. The patient has returned from [facility] where he had a 4th ray amputation performed to his right foot. He reports that he was supposed to have follow up appointments with surgery, cardiology and wound care but has not attended any of these appointments due to transportation difficulties. He is unsure of when his sutures are supposed to be removed. 02/28/16 Seen by Mitch Cota PA-C. The patient was seen at [facility] and evaluated by Dr. Monae on an urgent basis as arranged by Dr. Howe at his last visit. The patient reports that Dr. Monae wanted to urgently take him to surgery but the patient would prefer to have Dr. Garcia do it and refused admission to the hospital. 02/21/[address] Howe. The patient does not report pain or significant drainage associated with the Alonzo grade 3 right lateral foot diabetic ulcer and he saw Dr. Garcia , podiatry, this morning who reportedly states she's not able to perform any additional debridement until his right leg vascular status is further evaluated. He had an arterial Doppler scheduled yesterday however both the patient and his son state they were unaware of the appointment. He started taking his Augmentin, which is treating the MSSA and Strep viridans culture from 02/15/16, following the last visit as recommended, states his blood sugars have been consistently below 150 over the past week, and he's offloading by wearing a surgical shoe and significantly limiting his walking. Of note, he's still on supplemental oxygen following his recent hospital discharge and gets short of breath on minimal exertion. Please see my note below from his last visit regarding details of the admission and amputation. 02/15/[address] Howe. The patient does not report pain associated with the right lateral foot diabetic ulcer. He was discharged 4 days ago following a partial ray amputation of the 5th toe and MT due a progressive foot infection that he states occurred over about 2 days prior to being admitted to the hospital. His wound culture on arrival to the ER was polymicrobial and reported on Group C Strep. He was treated with IV Zosyn during the admission and prescribed Augmentin on discharge however he's not yet picked up the prescription. His blood sugars have been relatively well controlled with most below 150 since discharge. Of note, he also had a non-ST elevation TX post-operatively, acute on chronic renal failure with a Cr of 1.8 on discharge, and acute respiratory failure and continues on supplemental oxygen. 12/27/[address] Howe. The patient does not report drainage or pain associated with the chronic right plantar foot diabetic ulcer over the past week. He's not been applying Kerasal to the associated callus as recommended however he does not have diabetic shoes and a new AFO that he's been wearing. His blood sugars also remain relatively well controlled below 150 consistently. 12/06/[address] Howe. The patient does not report pain or significant drainage from the chronic right plantar foot diabetic ulcer. His blood sugars remain well controlled around 120 and he's now wearing his new diabetic shoes and offloading by limiting his walking significantly. He's also applying Kerasal daily to the right foot calluses as recommended. 11/29/[address] Howe. The patient does not report significant drainage from the chronic right plantar foot diabetic ulcer and he states his blood sugars remain well controlled below 150. He's also wearing his diabetic shoes now and limiting his walking to facilitate offloading. 11/23/[address] Howe. The patient reports moderate drainage but no pain associated with the chronic right plantar foot diabetic ulcer. He continues on doxycycline for a polymicrobial positive wound culture and he states his blood sugars remain well controlled with most below 120. 11/15/[address] Howe. The patient's wound culture from the last visit grew Enterobacter, Staph, and group G Strep however he's not yet picked up his prescription for doxycycline. He has at least moderate serosanquinous drainage on the dressing and states he's been a bit more active this past week as his son has been sick and unable to do the shopping. His blood sugar was also elevated yesterday near 200 but has been relatively well controlled prior to that. 11/08/15 Seen by Mitch Cota PA-C. The patient reports that his son is sick and he has been up on his feet taking care of him and has been unable to stay off of his feet. He has noted more drainage from his right plantar foot diabetic ulcer in the past few days. He also reports that his current shoes with inserts are making a large callous on his right heel and he doesn't feel that they offload his ulcer, so he has been trying to walk on the lateral edge of his right foot to offload his ulcer, and now is having lateral right foot pain as a result. 11/01/[address] Howe. The patient admits to being more active over the past two weeks but states there's only been very minimal drainage from the right plantar foot diabetic ulcer. His blood sugars also remain well controlled below 150 consistently. 10/18/[address] Howe. The patient does not report drainage from the right foot plantar diabetic ulcer however he states he has been more active the past week in terms of walking. His blood sugars also remain well controlled below 150. 10/11/[address] Howe. The patient does not report pain or drainage associated with the right plantar foot nor heel diabetic ulcers. 10/04/[address] Howe. The patient does not report drainage from the right plantar foot diabetic ulcer and he continues to use Kerasal daily for the significant right heel callus. His blood sugars are also well controlled below 120 consistently. 09/27/[address] Howe. The patient reports only minimal drainage from the right plantar foot diabetic ulcer and states his blood sugars continue to improve with most between 120 and 180. He's also applying Kerasal to the bilateral foot calluses daily as we've requested. 09/19/[address] Howe. The patient reports significantly decreased drainage from the right plantar foot diabetic ulcer and he'll complete his course of levofloxacin today that treating the polymicrobial wound culture from 09/04/15. His blood sugars are also much better controlled over the past week with most around 150 and very few over 200. 09/12/[address] Howe. The patient continues to report significant drainage from the right plantar diabetic foot ulcer and his wound culture from 09/04/15 grew Strep , Providencia, and Neisseria species. He's now on levofloxacin and does not report adverse effects. He's also no longer experiencing severe hypoglycemic episodes and is working closely with is PCP on adjusting his insulin regimen. His blood sugars due tend to remain over 200 however. 09/07/[address] Howe. The patient continues to report blood sugars as low as the 40's since our visit last week. Regarding his foot ulcers, he reports continued foul smelling drainage from the right foot diabetic ulcer but none from right heel or left foot diabetic ulcer. His blood sugars also may be as high as 300 and he states he's compliant with his diabetes medication regimen and will require as much as 30-40 units of short acting insulin on occasion. He does not report pain in the feet nor fevers or other systemic symptoms. 08/31/[address] Howe. The patient is new to our clinic. On arrival he was not feeling well and was tremulous. The MA checked his blood sugar and is registered 34 which is the lowest the glucometer would read. I spoke with him and he reported feeling very unwell at which time he was urgently transferred to the ER. Of note, he was in the clinic to review bilateral diabetic foot ulcers. He'd also recently lost a son and has been very upset the past week according to staff. Past Medical History This information was obtained from the patient Patient has a medical history of: Chronic Obstructive Pulmonary Disease (COPD) Type II Diabetes (A1c 7.4 on 11/12/2015) PAD Peripheral neuropathy Hypoglycemia CVA Diabetic foot ulcer (Right plantar 1st MTPJ, Alonzo grade II) Coronary Artery Disease (CAD) (s/p TX during admission on 02/04/2016) Lumbar strain CHF Hyperlipidemia CKD stage 3 Gout Diabetic foot ulcer - 02/04/2016 (right lateral foot s/p partial ray amputation; Alonzo grade 3; MSSA and Strep viridans cultured) Complaints and Symptoms This information was obtained from the patient Patient complains of: General Notes: I have reviewed and concur with the Review of Systems and Past Family Social History documents completed by the clinician, I have reviewed and concur with the Wound Assessment document completed by the clinician Cardiovascular (Central): Dyspnea on Exertion Ear/Nose/Mouth/Throat: Hearing Loss / Aid Integumentary (Hair/Skin/Nails): Open Sore Musculoskeletal: Assistive Devices, Deformities Neurological: Loss of Protective Sensation Prior Wound History: Drainage, Erythema, Malodor Patient denies complaints or symptoms related to: Cardiovascular (Central/Peripheral): Intermittent Claudication, Lower extremity (leg) resting pain Constitutional Symptoms (General Health): Chills, Fever Gastrointestinal (GI): Nausea / Vomiting, Stomach/abdominal pain Hematologic/Lymphatic: Bleeding / Clotting Disorders, Bleeding Tendency Musculoskeletal: Muscle Weakness Prior Wound History: Bleeding, Pain Psychiatric: Anxiety, Memory Loss Respiratory: Oxygen Use, Shortness of Breath OBJECTIVE Constitutional BP elevated; Afebrile; Alert and in no distress. Well developed. Alert. Clean appearing.. Height/Length: 72 in (182.88 cm), Weight: 227.7 lbs (103.5 kgs), BMI: 30.9, Temperature: 97.9 ?F (36.61 ?C), Pulse: 62 bpm, Respiratory Rate: 18 breaths/min, Blood Pressure: 152/62 mmHg, Capillary Blood Glucose: 127 mg/dl, Pulse Oximetry: 94 %. Vital Signs Notes: Glucose per patient Ears, Nose, Mouth, and Throat: Mild hearing deficit. Respiratory: No respiratory distress. Even respirations and without use of accessory muscles.. Cardiovascular: Pedal pulses 2+ on affected limb. Musculoskeletal: Right lateral foot partial amputation. Severe left foot Charcot deformity. Integumentary (Hair, Skin) No periwound erythema, warmth, or significant drainage. No periwound rashes appreciated or noted otherwise.. Refer to appropriate clinician wound documentation for this visit; right and left foot ulcers extend to subcut with bases partially covered with red friable granulation, remainder fibrin and slough. Increased maceration and callus present in the periwound areas. Wound #11 Left Metatarsal head first is a chronic Alonzo Grade 2 Diabetic Ulcer and has received a status of Not Healed. Subsequent wound encounter measurements are 1.5cm length x 1cm width x 0.5cm depth, with an area of 1.5 sq cm and a volume of 0.75 cubic cm. No tunneling has been noted. No sinus tract has been noted. No undermining has been noted. There is a moderate amount of sero-sanguineous drainage noted which has no odor. The patient reports no wound pain due to the wound being insensate. The wound margin is callus. Wound bed has No epithelialization, No eschar, No slough, Yes bright red, pink, spongy granulation. The periwound skin color is normal. The periwound skin exhibited: Callus, Moist , Maceration. The periwound skin did not exhibit: Brawny Induration, Edema, Excoriation, Induration, Crepitus, Fluctuance, Friable, Rash, Dry/Scaly. The temperature of the periwound skin is WNL. Periwound skin does not exhibit signs or symptoms of infection. Local Pulse is Palpable. Wound #12 Right, Plantar Metatarsal head first is a Alonzo Grade 2 Diabetic Ulcer and has received a status of Not Healed. Subsequent wound encounter measurements are 2.5cm length x 1.2cm width x 0.3cm depth, with an area of 3 sq cm and a volume of 0.9 cubic cm. No tunneling has been noted. No sinus tract has been noted. No undermining has been noted. There is a moderate amount of sanguineous drainage noted which has no odor. The patient reports no wound pain due to the wound being insensate. The wound margin is callus. Wound bed has Yes epithelialization, No eschar, No slough, Yes bright red, pink, firm granulation. The periwound skin color is normal. The periwound skin exhibited: Callus, Moist , Maceration. The periwound skin did not exhibit: Brawny Induration, Edema, Excoriation, Induration, Crepitus, Fluctuance, Friable, Rash, Dry/Scaly. The temperature of the periwound skin is WNL. Periwound skin does not exhibit signs or symptoms of infection. Local Pulse is Normal. ASSESSMENT Active Problems ICD-10 (Encounter Diagnosis) L97.522 - Non-pressure chronic ulcer of other part of left foot with fat layer exposed (Encounter Diagnosis) L97.512 - Non-pressure chronic ulcer of other part of right foot with fat layer exposed (Encounter Diagnosis) E11.621 - Type 2 diabetes mellitus with foot ulcer (Encounter Diagnosis) L08.9 - Local infection of the skin and subcutaneous tissue, unspecified PROCEDURES Wound #11 Wound #11 (Diabetic Ulcer) is located on the left metatarsal head first. A skin/ subcutaneous tissue level surgical debridement with a total area debrided of 1.5 sq cm was performed by Nando Howe MD. Subcutaneous was removed along with devitalized tissue: callus, exudate, and slough. The following instrument(s) were used: curette. Pain control was achieved using 4% Lido. A time out was conducted prior to the start of the procedure. A minimal amount of bleeding was controlled with silver nitrate. The procedure was tolerated well with a pain level of 0 throughout and a pain level of 0 following the procedure. Post Debridement Measurements: 1.5cm length x 1cm width x 0.6cm depth; with an area of 1.5 sq cm and a volume of 0.9 cubic cm; Wound #12 Wound #12 (Diabetic Ulcer) is located on the right, plantar metatarsal head first. A skin/subcutaneous tissue level surgical debridement with a total area debrided of 3 sq cm was performed by Nando Howe MD. Subcutaneous was removed along with devitalized tissue: callus and slough. The following instrument(s) were used: curette. Pain control was achieved using 4% Lido. A time out was conducted prior to the start of the procedure. A minimal amount of bleeding was controlled with n/a. The procedure was tolerated well with a pain level of 0 throughout and a pain level of 0 following the procedure. Post Debridement Measurements: 2.5cm length x 1.2cm width x 0.4cm depth; with an area of 3 sq cm and a volume of 1.2 cubic cm; Additional Information Muscle fascia or bone removed and sent to pathology?: No Muscle fascia or bone removed and sent to pathology?: No PLAN Wound Orders: Wound #11 Left Metatarsal head first Anesthetic Topical Xylocaine to wound bed. - In clinic only. Cleanser Cleanse Wound: - Normal saline and gauze, may use distilled water at home. May Shower. - Keep covered in shower with cast protector or plastic bag. Topical Treatments Antibiotic/Antimicrobial Ointment/Cream. - Gentamicin ointment Dressings Cover and secure with: - Foam and hypafix tape. Change Dressing: - Daily. Wound #12 Right, Plantar Metatarsal head first Anesthetic Topical Xylocaine to wound bed. - In clinic only. Cleanser Cleanse Wound: - Normal saline and gauze, may use distilled water at home. May Shower. - Keep covered in shower with cast protector or plastic bag. Topical Treatments Antibiotic/Antimicrobial Ointment/Cream. - Gentamicin ointment Dressings Cover and secure with: - Foam and hypafix tape. Change Dressing: - Daily. Additional Orders: Off-Loading Keep weight off: - Both feet as much as possible. Use/Wear when Walking: - Please use a walker to allow for more off-loading. Continue wearing iqugmiut boot on right foot. Follow-Up Appointments Return Appointment: - - Mondays and . Other information: If you develop fever, chills, increased pain, drainage, redness or swelling please call our office. If after hours, respond to the ER. Should you experience any significant changes in your wound(s) or have any questions regarding your home care instructions please contact the wound center @ [phone]. If after hours, contact your primary care physician or go to the hospital emergency room. Scribing Attestation I attest, as the nurse, that I scribed these orders for the physician. Laboratory: Bacteria identified in Wound by Culture Medications prescribed: gentamicin - topical 0.1 % ointment once daily for 7 days for infected ulcers starting 03/04/2018 General Notes: We will call with any positive wound cultures requiring oral antibiotics. I've reviewed the clinician's documentation and agree with the evaluation and plan as written. In addition the patient's ulcers demonstrate evidence of non-viable devitalized tissue and they will continue to benefit from sharp debridement to help promote granulation and expedite healing. Also, due to the appearance of the ulcers and increased maceration I'm concerned about recurrence of infection. I've repeated a wound culture and will restart treatment with topical gentamicin ointment. I've also added a thick, mole skin pad to the plantar surface of the left foot to help facilitate better offloading. Electronic Signature(s) Signed By: Date: Nando Howe MD 03/05/2018 08:42:30 Entered By: Nando Howe on 03/04/2018 11:41:42
== END ==
PROVIDERS: Family Provider Physician Assistant Medical; PCP Physician Assistant Medical; Visit Provider Internal Medicine
DX: E11.621 Type 2 diabetes mellitus with foot ulcer (principal); L97.522 Non-pressure chronic ulcer of other part of left foot with fat layer exposed; L97.512 Non-pressure chronic ulcer of other part of right foot with fat layer exposed; L08.9 Local infection of the skin and subcutaneous tissue, unspecified; M21.6X2 Other acquired deformities of left foot; M21.6X1 Other acquired deformities of right foot
CPT/HCPCS: 11042; 87070; 87075; 87077; 87147; 87186; 87205

== ENCOUNTER → 2018-03-11 09:31 | Outpatient (CLI) | payer MEDICARE, SELFPAY ==
--- NOTE | 2018-03-11 | OV.WND_ITS ---
Progress Note Details Patient Name: Nick Drake Patient Number: [id number] PatientPatientDate: 03/11/2018 Clinician: Lacy Malone Clinician Cosigner: Rina Bentley Physician / Legal Secretary: Pillo Cota SUBJECTIVE Chief Complaint This information was obtained from the patient Diabetic ulcers to right and left foot. Allergies Minipress (Severity: Severe, Reaction: violent behavior), Vicodin (Severity: Mild, Reaction: itching), nortriptyline (Severity: Moderate), Avandia (Severity: Moderate) HPI This information was obtained from the patient 03/11/18. Seen by Mitch Cota PA-C. The patient reports stable drainage from his diabetic foot ulcers. His blood sugars continue to be above 150 this week. 03/04/18. Seen by Dr. Howe. The patient continues to wear his GAMBELL boot to offload the right foot 1st MTPJ diabetic ulcer and address the significant deformity associated with the partial lateral foot amputation and he does not report increased drainage associated with this ulcer nor the left plantar foot diabetic ulcer since his last. He recently completed a course of doxycycline to treat a group G Strep positive culture and is applying iodosorb to the ulcers to help manage the persistent drainage. 03/01/18. Seen by Dr. Howe. The patient continues to wear his GAMBELL boot to offload the right foot 1st MTPJ diabetic ulcer and address the significant deformity associated with the partial lateral foot amputation. He does not report significant drainage associated with this ulcer nor the left plantar foot diabetic ulcer since his last. 02/25/18. Seen by Dr. Howe. The patient will complete his course of doxycycline today that's treating the Staph and group G Strep positive culture taken from the right foot diabetic ulcer. He does not report adverse side effects and nor significant drainage from the ulcer or the left plantar foot diabetic ulcer. 02/22/18. Seen by Dr. Howe. The patient is now on doxycycline for the Staph and group G Strep positive culture taken from the right foot diabetic ulcer last week. He notes some bloody drainage from this site on his dressing today but feels this ulcer and the left foot diabetic ulcer have improved over the past few week. He's offloading the right foot which has a partial lateral amputation using his GAMBELL boot as recommended however he's not using a frame walker. He does not report adverse side effects of the antibiotics nor other acute issues today. 02/18/18. Seen by Dr. Howe. The staff report increased drainage associated with both plantar foot 1st MTPJ diabetic ulcers and the patient reports a malodor from the dressings over the past week. He does not report fevers, feeling unwell, or pain in the feet but states his blood sugars have been a bit elevated in the 180s. He's also wearing his GAMBELL boot as recommended on the right foot but states he does not have enough room in his house to use a knee scooter and does not use his frame walker. 02/11/18. Seen by Dr. Howe. The patient continues to wear his GAMBELL boot to offload the right foot 1st MTPJ diabetic ulcer and address the significant deformity associated with the partial lateral foot amputation. He does not report significant drainage associated with this ulcer nor the left plantar foot diabetic ulcer since his last visit however the nurse states the mole skin dressing was applied inappropriately over the left foot ulcer and was overlying the ulcer itself and soaked with drainage. 02/04/18. Seen by Dr. Howe. The patient continues to wear his GAMBELL boot to offload the right foot 1st MTPJ diabetic ulcer and address the significant deformity associated with the partial lateral foot amputation. He does not report significant drainage associated with this ulcer nor the left plantar foot diabetic ulcer since his last visit. 01/28/2018. Seen by Dr. Howe. The patient is now wearing his GAMBELL boot to offload the right foot 1st MTPJ diabetic ulcer and address the significant deformity associated with the partial lateral foot amputation. He does not report significant drainage associated with this ulcer nor the left plantar foot diabetic ulcer since his last visit. 01/26/18. Seen by Dr. Howe. The patient states he has been without his insulin for over a week which is likely the cause of his blood sugars being around 400 over the past few visits. He has also not contacted his orthotics provider regarding the offloading GAMBELL boot to wear on the right foot noting his significant deformity caused by the partial lateral foot amputation. He has not report increased drainage or other acute changes regarding his bilateral diabetic foot ulcers and will complete his course of doxycycline its treated the recent MSSA positive culture tomorrow. He also reports nausea and one episode of emesis earlier today but not other acute issues. 01/21/2018. Seen by Dr. Howe. The patient arrived today with his right foot dressing upside down. His blood sugars are also over 400. The patient does not report increased drainage associated with the right or left diabetic foot ulcers however states his neuropathic pain has been significant over the past 2 days. He also is going to greens picker his GAMBELL boot today to help facilitate offloading of the right foot diabetic ulcer noted in he also has a partial lateral amputation on his foot that is contributed significantly 2. Ulcer callus formation. He also continues on doxycycline for he recent MSSA positive wound culture. 01/18/2018. Seen by Dr. Howe. The patient's wound culture from the left foot diabetic ulcer grew MSSA resistant to gentamicin. He is not currently on oral antibiotics and does not report increased drainage from either left right foot diabetic ulcers and is still waiting for his GAMBELL boot to be available to help facilitate better offloading of the right foot noting his partial lateral right foot amputation and severe Charcot deformity. 01/14/18. Seen by Dr. Howe. The patient continues to report moderate drainage from the right and left diabetic foot ulcers over the past few days and he's seen his government services professional who's ordered a GAMBELL boot for the right foot which should be available next week. He has severe bilateral Charcot deformities and partial right lateral foot amputation that contributes to the refractory nature of the ulcers and very heavy callus formation. 01/12/18. Seen by Dr. Howe. The patient reports moderate drainage from the right and left diabetic foot ulcers and he's seen his government services professional who's ordered a GAMBELL boot for the right foot. He has bilateral partial lateral foot amputations which have resulted in refractory calluses of the bilateral plantar MTPJ's and associated DFU's. His blood have been well controlled and his recent hypoglycemic episodes have resolved. 01/07/18. Seen by Dr. Howe. The patient missed his last 2 appointments due to a GI illness last week and she reports some pain in the lateral aspect of the right forefoot but no increased drainage, swelling, or other acute changes of the diabetic foot ulcer. He also does not report any acute issues regarding the left diabetic foot ulcer. Of note, he has significant deformities of both feet due to partial amputations which have each contributed significantly to severe callus formation and the refractory nature of the ulcers. 01/01/18. Seen by Dr. Howe. The patient continues on clindamycin for the chronic right diabetic foot ulcer infection and it is not reported adverse side effects. He also does not report significant drainage associated with either left or right diabetic foot ulcer since his last visit. 12/28/17. Seen by Dr. Howe. The patient does not report increased drainage associated with either right or left foot diabetic ulcers since his last visit. He continues on clindamycin without reporting adverse side effects to treat the chronic right ulcer infection and his blood sugars are well controlled. Of note, he has been attending clinic twice weekly to optimize management of his recurrent and severe apollo-ulcer calluses that are in part due to his severe Charcot deformities and bilateral partial foot amputations. 12/21/17. Seen by Dr. Howe. The patient reports some drainage associated with the right foot diabetic ulcer since his last visit but none associated with the left foot diabetic ulcer. He completed his course of doxycycline today is treating the recent MSSA positive wound culture and is reported adverse side effects, fevers, feeling unwell. He states his blood sugars continue to be well controlled below 180. 12/15/17. Cinthia Howe. The patient's wound culture from the left plantar foot diabetic ulcer his last visit grew MSSA resistant to gentamicin. He does not report increased drainage or pain from either diabetic foot ulcers since his last visit. 12/10/17. Seen by REN Olea. The patient does not report increased drainage from his bilateral diabetic foot ulcers but does report continued odor. Notes a large amount of callous growth. Wound culture from last week showed MSSA and Diphtheroids. He has been applying topical gentamicin. 12/03/17. Seen by Mitch Cota PA-C. The patient reports increased drainage and odor from his bilateral diabetic foot ulcers. He continues to have elevated blood sugars. 11/26/17. Seen by Mitch Cota PA-C. The patient reports that he has decreased his usage of marijuana which he uses for recreation and to treat his neuropathy. He has not had a ground level fall since decreasing his usage. His blood sugars remain >150 and his ulcers' drainage is stable. 11/20/17. Seen by Mitch Cota PA-C. The patient reports no increase in his ulcer drainage from his bilateral lower extremity diabetic ulcers. He has not scheduled an appointment to see his PCP to address his consistently high blood sugars. 11/13/17. Seen by Mitch Cota PA-C. The patient reports stable drainage from his diabetic foot ulcers and continued difficulty keeping his blood sugars below 150. He also reports not wearing his diabetic shoes when at home. 11/09/17. Seen by Mitch Cota PA-C. The patient reports high blood sugars again this week. He does not report increased drainage though he notes callous formation continues to happen quickly between visits. 11/06/17. Seen by Dr. Howe. The patient does not report increased drainage associated with the chronic bilateral diabetic foot ulcers since the last visit. 11/02/17. Seen by Mitch Cota PA-C. The patient reports no increased drainage from his bilateral diabetic foot ulcers. He is not surprised that his blood sugar is low this morning as he did not eat dinner yesterday or breakfast today, citing mild GI discomfort. 10/30/17. Seen by Dr. Howe. The patient missed a few appointments recently due to our facility power outage however he does not report increased drainage or other acute issues regarding his bilateral first MTPJ plantar foot diabetic ulcers. 10/23/17. Seen by Mitch Cota PA-C. The patient reports that he did not take his insulin, or eat this morning. Drainage from his diabetic foot ulcers has been stable. 10/15/17. Seen by Mitch Cota PA-C. The patient reports high blood sugars this week and stable drainage from his foot ulcers. 10/13/17. Seen by Dr. Howe. The patient does not report increased drainage associated with the bilateral plantar foot diabetic ulcers since his last visit. 10/01/17. Seen by Dr. Howe. The patient does not report increased drainage associated with either left or right plantar foot diabetic ulcers since his last visit. 10/01/17. Seen by Dr. Howe. The patient does not report increased drainage associated with either left or right plantar foot diabetic ulcers since his last visit. 09/28/17. Seen by Dr. Howe. The patient does not report increased drainage associated with either left or right plantar foot diabetic ulcers since his last visit. He has been offloading as recommended as well. 09/24/17. Seen by Dr. Howe. The patient reports some increased drainage associated with the right chronic diabetic foot ulcer but none with the left chronic diabetic foot ulcer since his last visit. His blood sugars have been well controlled and he does not report pain in either feet or fevers or feeling unwell. He had been seen twice weekly due to the recent deterioration of the right foot ulcer and need for frequent debridement of the periulcer callus. 09/16/17. Seen by Dr. Howe. The patient does not report significant drainage associated with the bilateral plantar foot diabetic ulcers since last visit and his blood sugars are well controlled over the past week. 09/11/17. Seen by Dr. Howe. The patient states that the right foot diabetic ulcer bled significantly earlier this week when he got out of the shower. He had his INR checked yesterday and it was 3.5. He does not report increased drainage otherwise from either the left or right foot diabetic ulcers since his last visit. He's been seen as twice weekly for the past 2 weeks due to the very heavy accumulation of callus associated with the right foot ulcer. 09/08/17. Seen by Dr. Howe. The patient does not report increased drainage associated with bilateral foot diabetic ulcers since his last visit. 09/04/17. Seen by Dr. Howe. The patient does not report significant drainage associated with the bilateral plantar foot diabetic ulcers since last visit and his blood sugars are well controlled over the past week. 08/31/17. Seen by Dr. Howe. The patient does not report increased drainage associated with the bilateral plantar foot diabetic ulcers since his last visit and he continues on doxycycline for the positive right foot ulcer wound culture. His blood sugars have been well- controlled for the past week and he has had no further episodes of hypoglycemia. 08/26/17. Seen by Dr. Howe. The patient is now on doxycycline resistant MSSA positive wound culture taken from his right diabetic foot ulcer and does not report other side effects. He has picked up his new diabetic shoes and is wearing them as recommended. His blood sugar today is 58 in clinic and he has recently had his short-acting insulin increased by his primary care provider due to frequent episodes of hyperglycemia. He is scheduled to see his PCP again tomorrow to discuss the changes. 08/18/17. Seen by Mitch Cota PA-C. The patient reports a foul odor from his bilateral foot ulcers. He reports that he is feeling much better after an ER trip for hypoxia and his recent O2 saturation readings have been 100%. 08/06/17. Seen by Dr. Howe. The patient reports feeling unwell along with progressive shortness of breath while at rest over the past week. He says he had a low- grade fever at home today and staff report is O2 sats in low 90s upon arrival. He has a history of COPD also with possible admission for pneumonia within the past year. He is here for review of chronic diabetic foot ulcers that have been relatively stable for the past few weeks. 07/28/17. Seen by Mitch Cota PA-C. The patient reports increased drainage and bleeding from his diabetic foot ulcers. 07/20/17. Seen by Mitch Cota PA-C. The patient reports no increase in ulcer drainage since his last evaluation. 07/16/17. Seen by Mitch Cota PA-C. The patient has recently been in hospital where he had a NON-STEMI. He reports a reduction in drainage and wound odor after starting Augmentin. 07/01/17. Seen by Dr. Howe. The patient does not report significant drainage associated with the chronic bilateral plantar foot diabetic ulcers since his last visit. He will be picking up his new diabetic shoes today noting his partial right lateral foot amputation and multiple bilateral toe amputations plus Charcot deformity of both feet are contributing significantly to the recurrent heavy callus formation in the apollo-ulcer areas. He also states that he has not been covering his feet when he is in the shower despite our recommendation to do so. 06/19/17. Seen by Dr. Howe. The patient does not report significant drainage associated with the chronic bilateral plantar MTPJ diabetic ulcers since his last visit. Of note , the patient's blood sugar is 42 in clinic and was 35 earlier this morning. He's mildly symptomatic and is with his son who states the patient's food intake has been a bit less than usual due to limited funds at the end of the month. The patient also admits to trying to keep his blood sugars below 140 at all times and has had the problem of hypoglycemia in our clinic a number of times over the past year. 06/12/17. Seen by Dr. Howe. The patient does not report significant drainage associated with the chronic bilateral plantar MTPJ diabetic ulcers since his last visit. 06/05/17. Seen by Dr. Howe. The patient does not report significant drainage associated with the chronic bilateral plantar MTPJ diabetic ulcers since his last visit. He continues on Augmentin based on the recent wound culture and does not report adverse side effects. He also was seen by Dr. Garcia and his new diabetic shoes have been ordered noting his significant history of right lateral foot amputation and multiple toe amputations plus bilateral Charcot deformities. 05/29/17. Seen by Dr. Howe. The patient's wound culture from 2 days ago of a new right foot diabetic ulcer grew Streptococcus as well as Staph. He does not report increased drainage from this ulcer nor the chronic left foot diabetic ulcer. He is also not yet been seen by podiatry although we did send the referral over a couple weeks ago. His blood sugars continue to be well controlled and of note he has had extensive amputations of both the lateral aspect of the right foot as well as toes on both feet which has contributed significantly to recurrent callus and diabetic ulcer formation. 05/27/17. Seen by Mitch Cota PA-C. The patient reports a new ulcer to his right great toe that he believes has been continuously present for about a week. He denies any trauma to the area though states he may have been walking more lately. He is insensate and notes no pain, though he has seen purulent drainage in the area and notes a foul odor. 05/12/17. Seen by Dr. Howe. The patient does not report significant drainage associated with the chronic left plantar foot diabetic ulcer and he notes that heavy callus again has formed on the right plantar foot surface at the site of his recently healed diabetic ulcer. He has severe bilateral Charcot deformities along with multiple toe amputations that are contributing significantly to health information and the refractory and recurrent nature of his diabetic foot ulcers. He's also asked for us to address his toe nails today as it's been weeks since they've been trimmed. 05/05/17. Seen by Dr. Howe. The patient presents today with low blood sugars in the 40's and states he is feeling unwell in the waiting room. Upon my review he is lucid and eating and his blood sugars have increased into the 50s. He does not report any new problems regarding his chronic left foot diabetic ulcer and states that he has not discussed his hypoglycemia with his primary care provider yet despite having a number of episodes throughout the month. 04/28/17. Seen by Dr. Howe. The patient reports recurrence of his left plantar foot diabetic ulcer over the past week along with some new drainage that's quite malodorous. He does not report pain in the foot nor fevers nor any acute issues regarding his right lateral foot diabetic ulcer. He states his blood sugars continue to be well controlled with most below 120. 04/21/17. Seen by Dr. Howe. The patient does not report pain or drainage associated with the chronic right foot diabetic ulcers since his last visit. 04/14/17. Seen by Dr. Howe. The patient does not report pain or drainage associated with the chronic right foot diabetic ulcers since his last visit. His work diabetic shoe as recommended noting he is a partial right foot and right second toe amputations along with a significant Charcot deformity. 04/07/17. Seen by Dr. Howe. The patient does not report significant drainage or pain associated with the chronic right lower leg diabetic ulcers since his last visit. He snoring softly and she was recommended and reports his blood sugars have been well controlled. Of note, his significant deformity of the right foot including partial lateral amputation as well as second toe amputation and a significant Charcot deformity. 04/02/17. Seen by Dr. Howe. The patient reports that a coin accidentally fell into his right lower leg total contact cast a couple days ago. The staff found a johnson upon removing the cast as well as a new ulcer over the lateral aspect of the right foot. The patient does not report pain at the site nor does staff report significant drainage associated with new ulcer nor the chronic right plantar foot diabetic ulcer. The patient's blood sugars continue to be well controlled and he has no other acute complaints at this time. 03/28/17. Seen by Mitch Cota PA-C. The patient's recent wound culture demonstrated no growth. He has not noted increased drainage since his last evaluation. 03/23/17. Seen by Mitch Cota PA-C. The patient reports no increase in right foot ulcer drainage since his last evaluation. In addition his wound culture demonstrated no growth. 03/17/17. Seen by Dr. Howe. The patient does not report increased drainage associated with the chronic right first MTPJ diabetic ulcer.He completed his course of antibiotics that was treating the recent positive wound culture and does not report adverse side effects. He continues offload with a surgical shoe as well. 03/09/17. Seen by Dr. Howe. The patient does not report pain or significant drainage associated with the recurrent right foot diabetic ulcer. His culture of the ulcer was positive for a staph organism and Acinetobacter however he's not yet been started on antibiotics. He states his blood sugars continue to be well-controlled with most below 150. 03/02/17. Seen by Mitch Cota PA-C. The patient reports no improvement in drainage from his diabetic ulcer of the right foot. He has noted odor at times coming from the ulcer. 02/23/17. Seen by Mitch Cota PA-C. The patient reports no increase in drainage from his diabetic ulcer of the right foot. 02/09/17. Seen by Mitch Cota PA-C. The patient reports that he has just begun taking Bactrim for his infection of his right foot diabetic ulcer. He reports continued purulent drainage and odor. 02/02/17. Seen by Mitch Cota PA-C. The patient returns to our clinic with a new ulcer of his right first metatarsal head. He reportedly smacked his foot hard on the floor, creating this ulcer, in an attempt to stop an episode of neuropathy. 11/10/16. Seen by Mitch Cota PA-C. The patient returns for evaluation of his recently healed ulcer, fearing that it is open again. He has not seen liquid drainage but fears it is draining under the callous. 11/04/16. Seen by Mitch Cota PA-C. The patient does not report any difficulties with his TCC this week. 10/24/16. Seen by Dr. Howe. The patient does not report any problems regarding his TCC and staff do not repot significant drainage on the dressing overlying the left plantar foot diabetic ulcer. His blood sugars remain well controlled with most below 150. 10/20/16 Seen by Mitch Cota PA-C. The patient is here for placement of a TCC to offload his left plantar foot diabetic ulcer. He notes that the drainage from his ulcer has soaked through the TCC under-layers and almost soaked through the cast. 10/15/16. Seen by Dr. Howe. The patient tolerated his TCC with minimal discomfort noting mild pain in the left 1st toe. The staff do not report significant drainage associated with the chronic left plantar foot diabetic ulcer and he states his blood sugars are mostly below 150. He's now been placed in a TCC to optimize offloading needed to accommodate for the left foot Charcot deformity that's lead to recurrent heavy callus formation in the periulcer area. 10/13/16 Seen by Mitch Cota PA-C. The patient reports no increase in drainage from his left foot diabetic non-pressure ulcer since his last evaluation. 09/29/15 Seen by Mitch Cota PA-C. The patient reports no increase in drainage from his chronic left foot diabetic ulcer. He does voice frustration that his wound is taking so long to heal. 09/19/16. Seen by Dr. Howe. The patient does not report increased drainage or other acute issues regarding his chronic left plantar foot diabetic ulcer since his last visit. 09/12/16. Seen by Dr. Howe. The patient does not report significant drainage associated with the chronic left plantar foot diabetic ulcer over the past week. He's applying Kerasal to the periwound callus as recommended and has limited his walking considerably, in addition to wearing an offloading shoe, to minimize callus formation. His blood sugars also remain well controlled with most below 150 and he continues on Bactrim for an infection of the ulcer without reporting adverse side effects. 09/05/16. Seen by Dr. Howe. The patient returns to clinic with recurrent of his left plantar foot diabetic ulcer that he states reopened about 2 weeks ago. He was placed on Keflex by his PCP yesterday due to the appearance of the ulcer and significant drainage. He states his blood sugars are well controlled and he limits his walking to help facilitate offloading. 07/28/16. Seen by Dr. Howe. The patient does not report significant drainage associated with the chronic left plantar foot diabetic ulcer over the past week. He's applying Kerasal to the periwound callus as recommended and states his blood sugars are consistently below 150. He does report ongoing nausea for the past few weeks and states he's on 3 nausea medications but does not know what's causing it. He's working with his PCP on this problem. 07/15/16 Seen by Mitch Cota PA-C. The patient reports no fever chills or pain from his left foot diabetic ulcer since his last evaluation. 07/10/16. Seen by Dr. Howe. The patient does not report significant drainage associated with the chronic left plantar foot diabetic ulcer over the past week. He's applying Kerasal to the periwound callus as recommended and has limited his walking considerably, in addition to wearing an offloading shoe, to minimize callus formation. 07/08/16 Seen by Mitch Cota PA-C. The patient reports no increase in pain or drainage from his ulcer, though he does report nausea and vomiting. After further review, it appears that his PPI prescription has run out and he stopped it abruptly. He has not had associated fever, chills or lower GI symptoms. His blood sugars have reportedly been above 150 this week. The patient reports that he still has problems with callous formation on his feet and will be seeing podiatry. 07/04/16. Seen by Dr. Howe. The patient does not report significant drainage associated with the chronic left plantar foot diabetic ulcer since his last visit. He does report significant nausea and vomiting over the past week however but does not report fever, cough, or other specific symptoms and feels the nausea has started to improve as of yesterday. He states his blood sugars have been well controlled with most below 150 and he's on Augmentin for the recent MSSA and Strep positive wound culture. He's also been applying Kerasal to the periwound callus as recommended and has been limited in his walking the past week due to illness. 06/23/16 Seeb by Mitch Cota PA-C. The patient reports that he believes he has an infection in his foot because his dog has been sniffing and licking his open ulcer. He believes his dog has a nose for infection. He reports a continuous, strong, foul odor from his left plantar foot ulcer for the past 3 days with an associated increase in drainage. In addition he has not been offloading his foot as instructed and is going barefoot at home. 06/16/16 Seen by Mitch Cota PA-C. The patient reports that he is walking barefoot in the house and only wears shoes outside the house. His left foot diabetic ulcer drainage has been stable. 06/02/16 Seen by Mitch Cota PA-C. The patient reports that he is due to have a new orthotic fitted for his deformed left foot to further offload his chronic left foot ulcer. He reports stable drainage from this ulcer. 05/27/16 Seen by Mitch Cota PA-C. The patient reports that he now has a new wound near his chronic left plantar foot diabetic ulcer. The new wound began spontaneously and was noted today. His chronic ulcer has had stable drainage. 05/19/16. Seen by Dr. Howe. The patient does not report significant drainage associated with the chronic left plant foot diabetic ulcer over the past week and he states his blood sugars are well controlled with most below 150. 05/12/16. Seen by Dr. Howe. The patient reports some new pain along the right foot surgical scar but no swelling or drainage from the site. He does not recall injuring the foot and feels he may have been more active over the past week. He does not report significant or drainage associated with the left plantar foot diabetic ulcer and states he's not been able to check his blood sugars due to the fact he ran out of glucometer strips this past week. His blood sugar today is 280. 04/11/16. Seen by Dr. Howe. The patient does not report pain or drainage associated with the chronic right lateral foot diabetic ulcer of the past week. He states his blood sugars are consistently below 150 and he is wearing his offloading shoe is recommended. 04/04/16. Seen by Dr. Howe. 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 He states his blood sugars are mostly below 150 and he's offloading using a surgical offloading shoe. He's now off of antibiotics and is here today with his granddaughter who's assisting with his care. 03/31/16 Seen by Mitch Cota PA-C. The patient has returned from [facility] where he had a 4th ray amputation performed to his right foot. He reports that he was supposed to have follow up appointments with surgery, cardiology and wound care but has not attended any of these appointments due to transportation difficulties. He is unsure of when his sutures are supposed to be removed. 02/28/16 Seen by Mitch Cota PA-C. The patient was seen at [facility] and evaluated by Dr. Monae on an urgent basis as arranged by Dr. Howe at his last visit. The patient reports that Dr. Monae wanted to urgently take him to surgery but the patient would prefer to have Dr. Garcia do it and refused admission to the hospital. 02/21/[address] Howe. The patient does not report pain or significant drainage associated with the Alonzo grade 3 right lateral foot diabetic ulcer and he saw Dr. Garcia , podiatry, this morning who reportedly states she's not able to perform any additional debridement until his right leg vascular status is further evaluated. He had an arterial Doppler scheduled yesterday however both the patient and his son state they were unaware of the appointment. He started taking his Augmentin, which is treating the MSSA and Strep viridans culture from 02/15/16, following the last visit as recommended, states his blood sugars have been consistently below 150 over the past week, and he's offloading by wearing a surgical shoe and significantly limiting his walking. Of note, he's still on supplemental oxygen following his recent hospital discharge and gets short of breath on minimal exertion. Please see my note below from his last visit regarding details of the admission and amputation. 02/15/[address] Howe. The patient does not report pain associated with the right lateral foot diabetic ulcer. He was discharged 4 days ago following a partial ray amputation of the 5th toe and MT due a progressive foot infection that he states occurred over about 2 days prior to being admitted to the hospital. His wound culture on arrival to the ER was polymicrobial and reported on Group C Strep. He was treated with IV Zosyn during the admission and prescribed Augmentin on discharge however he's not yet picked up the prescription. His blood sugars have been relatively well controlled with most below 150 since discharge. Of note, he also had a non-ST elevation WA post-operatively, acute on chronic renal failure with a Cr of 1.8 on discharge, and acute respiratory failure and continues on supplemental oxygen. 12/27/[address] Howe. The patient does not report drainage or pain associated with the chronic right plantar foot diabetic ulcer over the past week. He's not been applying Kerasal to the associated callus as recommended however he does not have diabetic shoes and a new AFO that he's been wearing. His blood sugars also remain relatively well controlled below 150 consistently. 12/06/[address] Howe. The patient does not report pain or significant drainage from the chronic right plantar foot diabetic ulcer. His blood sugars remain well controlled around 120 and he's now wearing his new diabetic shoes and offloading by limiting his walking significantly. He's also applying Kerasal daily to the right foot calluses as recommended. 11/29/[address] Howe. The patient does not report significant drainage from the chronic right plantar foot diabetic ulcer and he states his blood sugars remain well controlled below 150. He's also wearing his diabetic shoes now and limiting his walking to facilitate offloading. 11/23/[address] Howe. The patient reports moderate drainage but no pain associated with the chronic right plantar foot diabetic ulcer. He continues on doxycycline for a polymicrobial positive wound culture and he states his blood sugars remain well controlled with most below 120. 11/15/[address] Howe. The patient's wound culture from the last visit grew Enterobacter, Staph, and group G Strep however he's not yet picked up his prescription for doxycycline. He has at least moderate serosanquinous drainage on the dressing and states he's been a bit more active this past week as his son has been sick and unable to do the shopping. His blood sugar was also elevated yesterday near 200 but has been relatively well controlled prior to that. 11/08/15 Seen by Mitch Cota PA-C. The patient reports that his son is sick and he has been up on his feet taking care of him and has been unable to stay off of his feet. He has noted more drainage from his right plantar foot diabetic ulcer in the past few days. He also reports that his current shoes with inserts are making a large callous on his right heel and he doesn't feel that they offload his ulcer, so he has been trying to walk on the lateral edge of his right foot to offload his ulcer, and now is having lateral right foot pain as a result. 11/01/[address] Howe. The patient admits to being more active over the past two weeks but states there's only been very minimal drainage from the right plantar foot diabetic ulcer. His blood sugars also remain well controlled below 150 consistently. 10/18/[address] Howe. The patient does not report drainage from the right foot plantar diabetic ulcer however he states he has been more active the past week in terms of walking. His blood sugars also remain well controlled below 150. 10/11/[address] Howe. The patient does not report pain or drainage associated with the right plantar foot nor heel diabetic ulcers. 10/04/[address] Howe. The patient does not report drainage from the right plantar foot diabetic ulcer and he continues to use Kerasal daily for the significant right heel callus. His blood sugars are also well controlled below 120 consistently. 09/27/[address] Howe. The patient reports only minimal drainage from the right plantar foot diabetic ulcer and states his blood sugars continue to improve with most between 120 and 180. He's also applying Kerasal to the bilateral foot calluses daily as we've requested. 09/19/[address] Howe. The patient reports significantly decreased drainage from the right plantar foot diabetic ulcer and he'll complete his course of levofloxacin today that treating the polymicrobial wound culture from 09/04/15. His blood sugars are also much better controlled over the past week with most around 150 and very few over 200. 09/12/[address] Howe. The patient continues to report significant drainage from the right plantar diabetic foot ulcer and his wound culture from 09/04/15 grew Strep , Providencia, and Neisseria species. He's now on levofloxacin and does not report adverse effects. He's also no longer experiencing severe hypoglycemic episodes and is working closely with is PCP on adjusting his insulin regimen. His blood sugars due tend to remain over 200 however. 09/07/[address] Howe. The patient continues to report blood sugars as low as the 40's since our visit last week. Regarding his foot ulcers, he reports continued foul smelling drainage from the right foot diabetic ulcer but none from right heel or left foot diabetic ulcer. His blood sugars also may be as high as 300 and he states he's compliant with his diabetes medication regimen and will require as much as 30-40 units of short acting insulin on occasion. He does not report pain in the feet nor fevers or other systemic symptoms. 08/31/[address] Howe. The patient is new to our clinic. On arrival he was not feeling well and was tremulous. The MA checked his blood sugar and is registered 34 which is the lowest the glucometer would read. I spoke with him and he reported feeling very unwell at which time he was urgently transferred to the ER. Of note, he was in the clinic to review bilateral diabetic foot ulcers. He'd also recently lost a son and has been very upset the past week according to staff. Family History This information was obtained from the patient Cancer - Father, Diabetes - Mother, Heart Disease - Mother, Stroke - Mother Social History This information was obtained from the patient Former smoker - quit at age 42, Alcohol Use - rare, Caffeine Use - 1 coffee per day, Children - 2 children, Lives in - Private home with son, Marital Status - , Retired , Substance Abuse - Marijuana Past Medical History This information was obtained from the patient Patient has a medical history of: Chronic Obstructive Pulmonary Disease (COPD) Type II Diabetes (A1c 7.4 on 11/12/2015) PAD Peripheral neuropathy Hypoglycemia CVA Diabetic foot ulcer (Right plantar 1st MTPJ, Alonzo grade II) Coronary Artery Disease (CAD) (s/p WA during admission on 02/04/2016) Lumbar strain CHF Hyperlipidemia CKD stage 3 Gout Diabetic foot ulcer - 02/04/2016 (right lateral foot s/p partial ray amputation; Alonzo grade 3; MSSA and Strep viridans cultured) Complaints and Symptoms This information was obtained from the patient Patient complains of: General Notes: I have reviewed and concur with the Review of Systems and Past Family Social History documents completed by the clinician, I have reviewed and concur with the Wound Assessment document completed by the clinician Cardiovascular (Central): Dyspnea on Exertion Ear/Nose/Mouth/Throat: Hearing Loss / Aid Integumentary (Hair/Skin/Nails): Open Sore Musculoskeletal: Assistive Devices, Deformities Neurological: Loss of Protective Sensation Prior Wound History: Drainage, Erythema, Malodor Patient denies complaints or symptoms related to: Cardiovascular (Central/Peripheral): Intermittent Claudication, Lower extremity (leg) resting pain Constitutional Symptoms (General Health): Chills, Fever Gastrointestinal (GI): Nausea / Vomiting, Stomach/abdominal pain Hematologic/Lymphatic: Bleeding / Clotting Disorders, Bleeding Tendency Musculoskeletal: Muscle Weakness Prior Wound History: Bleeding, Pain Psychiatric: Anxiety, Memory Loss Respiratory: Oxygen Use, Shortness of Breath OBJECTIVE Constitutional Vital signs reviewed. Elevated blood sugar noted. Well developed, lucid, and in no acute distress. . Height/Length: 72 in (182.88 cm), Weight: 227.7 lbs (103.5 kgs), BMI : 30.9, Temperature: 96.8 ?F (36 ?C), Pulse: 52 bpm, Respiratory Rate: 18 breaths/min, Blood Pressure: 151/71 mmHg, Capillary Blood Glucose: 171 mg/dl, Pulse Oximetry: 95 %. Vital Signs Notes: Glucose per patient. Eyes: Conjunctiva clear and without icterus. Pupils are equal and round; EOM's intact. Ears, Nose, Mouth, and Throat: Grossly intact. Respiratory: No respiratory distress. Even respirations and without use of accessory muscles.. Integumentary (Hair, Skin) Refer to appropriate clinician wound documentation for this visit; ulcer extends to subcutaneous fat layer. . Wound #11 Left Metatarsal head first is a chronic Alonzo Grade 2 Diabetic Ulcer and has received a status of Not Healed. Subsequent wound encounter measurements are 1.3cm length x 0.9cm width x 0.6cm depth, with an area of 1.17 sq cm and a volume of 0.702 cubic cm. There is a moderate amount of sero-sanguineous drainage noted which has no odor. The patient reports no wound pain due to the wound being insensate. The wound margin is callus. Wound bed has No epithelialization, No eschar, No slough, Yes pink, spongy granulation. The periwound skin color is normal. The periwound skin exhibited: Callus, Moist , Maceration. The periwound skin did not exhibit: Brawny Induration, Edema, Excoriation, Induration, Crepitus, Fluctuance, Friable, Rash, Dry/Scaly. The temperature of the periwound skin is WNL. Periwound skin does not exhibit signs or symptoms of infection. Local Pulse is Palpable. Wound #12 Right, Plantar Metatarsal head first is a Alonzo Grade 2 Diabetic Ulcer and has received a status of Not Healed. Subsequent wound encounter measurements are 2cm length x 1cm width x 0.4cm depth, with an area of 2 sq cm and a volume of 0.8 cubic cm. No tunneling has been noted. No sinus tract has been noted. No undermining has been noted. There is a moderate amount of sanguineous drainage noted which has no odor. The patient reports no wound pain due to the wound being insensate. The wound margin is callus. Wound bed has No epithelialization, No eschar, No slough, Yes pink, firm granulation. The periwound skin color is normal. The periwound skin exhibited: Callus, Moist , Maceration. The periwound skin did not exhibit: Brawny Induration, Edema, Excoriation, Induration, Crepitus, Fluctuance, Friable, Rash, Dry/Scaly. The temperature of the periwound skin is WNL. Periwound skin does not exhibit signs or symptoms of infection. Local Pulse is Normal. Psychiatric: Judgement and insight: Normal affect with normal thought pattern. Alert and oriented 3/3. Memory grossly intact.. Normal affect. Mood appropriate.. ASSESSMENT Active Problems ICD-10 (Encounter Diagnosis) L97.522 - Non-pressure chronic ulcer of other part of left foot with fat layer exposed (Encounter Diagnosis) L97.512 - Non-pressure chronic ulcer of other part of right foot with fat layer exposed (Encounter Diagnosis) E11.621 - Type 2 diabetes mellitus with foot ulcer (Encounter Diagnosis) L08.9 - Local infection of the skin and subcutaneous tissue, unspecified (Encounter Diagnosis) E11.65 - Type 2 diabetes mellitus with hyperglycemia PROCEDURES Wound #11 Wound #11 (Diabetic Ulcer) is located on the left metatarsal head first. A skin/ subcutaneous tissue level surgical debridement with a total area debrided of 1.17 sq cm was performed by Pillo Cota PA. Subcutaneous was removed along with devitalized tissue: callus , exudate, and slough. The following instrument(s) were used: curette. Pain control was achieved using 4% Lido. A time out was conducted prior to the start of the procedure. A moderate amount of bleeding was controlled with silver nitrate. The procedure was tolerated well with a pain level of 0 throughout and a pain level of 0 following the procedure. Post Debridement Measurements: 1.3cm length x 0.9cm width x 0.6cm depth; with an area of 1.17 sq cm and a volume of 0.702 cubic cm; Wound #12 Wound #12 (Diabetic Ulcer) is located on the right, plantar metatarsal head first. A skin/subcutaneous tissue level surgical debridement with a total area debrided of 2 sq cm was performed by Pillo Cota PA. Subcutaneous was removed along with devitalized tissue: callus, exudate, and slough. The following instrument(s) were used: curette, forceps, and scissors. Pain control was achieved using 4% Lido. A time out was conducted prior to the start of the procedure. No bleeding occurred. The patient tolerated the procedure with a pain level of 0 throughout and a pain level of 0 following the procedure. Post Debridement Measurements: 2cm length x 1cm width x 0.4cm depth; with an area of 2 sq cm and a volume of 0.8 cubic cm; Additional Information Muscle fascia or bone removed and sent to pathology?: No Muscle fascia or bone removed and sent to pathology?: No PLAN Wound Orders: Wound #11 Left Metatarsal head first Anesthetic Topical Xylocaine to wound bed. - In clinic only. Cleanser Cleanse Wound: - Normal saline and gauze, may use distilled water at home. May Shower. - Keep covered in shower with cast protector or plastic bag. Topical Treatments Antibiotic/Antimicrobial Ointment/Cream. - Gentamicin ointment Dressings Cover and secure with: - Foam and hypafix tape. Change Dressing: - Daily. Wound #12 Right, Plantar Metatarsal head first Anesthetic Topical Xylocaine to wound bed. - In clinic only. Cleanser Cleanse Wound: - Normal saline and gauze, may use distilled water at home. May Shower. - Keep covered in shower with cast protector or plastic bag. Topical Treatments Antibiotic/Antimicrobial Ointment/Cream. - Gentamicin ointment Dressings Cover and secure with: - Foam and hypafix tape. Change Dressing: - Daily. Additional Orders: Off-Loading Keep weight off: - Both feet as much as possible. Use/Wear when Walking: - Please use a walker to allow for more off-loading. Continue wearing akiachak boot on right foot. Follow-Up Appointments Return Appointment: - - Mondays and . Other information: If you develop fever, chills, increased pain, drainage, redness or swelling please call our office. If after hours, respond to the ER. Should you experience any significant changes in your wound(s) or have any questions regarding your home care instructions please contact the wound center @ [phone]. If after hours, contact your primary care physician or go to the hospital emergency room. Scribing Attestation I attest, as the nurse, that I scribed these orders for the physician. General Notes: You are scheduled for an Arterial Doppler study of both lower extremities on March 15, 2018 at 9:15. No Caffeine for 8 hours before procedure. I've reviewed the clinician's documentation and agree with the evaluation and plan as written. In addition the patient's ulcers demonstrate evidence of non-viable devitalized tissue which benefits from sharp debridement. Separate from the need for debridement today to speed healing, the patient's diabetes was assessed, as good blood sugar control reduces the risk of infection and improves soft tissue healing. The patient was enouraged to continue to comply with a diabetic diet, medications and continue to regularly follow up with primary care to maintain good control of this issue. Separate from the need for debridement today to speed healing, the patient's infection was assessed and appears to still be active. The patient was enouraged to continue complying with the ordered antimicrobial regemin for ongoing treatment for this issue. Electronic Signature(s) Signed By: Date: Mitch Cota 03/15/2018 12:48:23 Entered By: Mitch Cota on 03/14/2018 22:11:00
== END ==
PROVIDERS: Family Provider Physician Assistant Medical; PCP Physician Assistant Medical; Visit Provider Physician Assistant
DX: E11.621 Type 2 diabetes mellitus with foot ulcer (principal); E11.65 Type 2 diabetes mellitus with hyperglycemia; L97.522 Non-pressure chronic ulcer of other part of left foot with fat layer exposed; L97.512 Non-pressure chronic ulcer of other part of right foot with fat layer exposed; L08.9 Local infection of the skin and subcutaneous tissue, unspecified
CPT/HCPCS: 11042

== ENCOUNTER → 2018-03-15 07:57 | Outpatient (CLI) | payer OTHER, SELFPAY ==
--- NOTE | 2018-03-15 | DI.US.S_ITS ---
PROCEDURE: US ARTERIAL DUPLEX LE BI INDICATIONS: TYPE 2 DIABETIC WITH FOOT ULCER TECHNIQUE: Color and pulse Doppler interrogation was performed of both lower extremity arterial systems, with image documentation. COMPARISON: None. FINDINGS: Right lower extremity: Common femoral artery: 135 cm/sec, with triphasic flow. Deep femoral artery: 55 cm/sec, with biphasic flow. Proximal superficial femoral artery: 47 cm/sec, with monophasic flow. Mid superficial femoral artery: 296 cm/sec, with monophasic flow. Distal superficial femoral artery: 160 cm/sec, with monophasic flow. Popliteal artery: 40 cm/sec, with monophasic flow. Posterior tibial artery: 40 cm/sec, with monophasic flow. Anterior tibial artery/dorsalis pedis: 44 cm/sec, with monophasic flow. Urias-scale imaging description: Dense atheromatous calcification is present throughout the right lower extremity arteries. A focal high-grade stenosis is present within the midportion of the right superficial femoral artery. Left lower extremity: Common femoral artery: 226 cm/sec, with monophasic flow. Deep femoral artery: 77 cm/sec, with biphasic flow. Proximal superficial femoral artery: 147 cm/sec, with monophasic flow. Mid superficial femoral artery: 131 cm/sec, with monophasic flow. Distal superficial femoral artery: 172 cm/sec, with monophasic flow. Popliteal artery: 124 cm/sec, with monophasic flow. Posterior tibial artery: 157 cm/sec, with monophasic flow. Anterior tibial artery/dorsalis pedis: 138 cm/sec, with monophasic flow. Urias-scale imaging description: Dense atheromatous calcification is present throughout the left lower extremity arteries. Monophasic waveforms of the left common femoral artery raising suspicion for inflow stenosis. IMPRESSION: 1. Focal high-grade stenosis within the midportion of the right SFA likely amenable to percutaneous angioplasty which may help heal the right foot ulcer. 2. Findings suspicious for inflow stenosis of the left common femoral artery. If further characterization is warranted, CT aortogram with bilateral lower extremity runoff would be helpful both to delineate anatomy and plan for possible therapeutic intervention. Additionally, if clinically indicated, consider interventional radiology consultation to discuss therapeutic options. If renal insufficiency precludes administration of iodinated contrast, CO2 arteriography could be used to further delineate anatomy. Dictated by: Michelle Brown M.D. on 03/15/2018 at 9:05 Approved by: Michelle Brown M.D. on 03/15/2018 at 9:11
== END ==
PROVIDERS: Family Provider Physician Assistant Medical; PCP Physician Assistant Medical; Visit Provider Internal Medicine
DX: E11.621 Type 2 diabetes mellitus with foot ulcer (principal); I70.203 Unspecified atherosclerosis of native arteries of extremities, bilateral legs; Z53.9 Procedure and treatment not carried out, unspecified reason
CPT/HCPCS: 93925

== ENCOUNTER → 2018-03-15 10:02 | Outpatient (CLI) | payer MEDICARE, SELFPAY ==
--- NOTE | 2018-03-15 | OV.WND_ITS ---
Progress Note Details Patient Name: Nick Drake Patient Number: [id number] PatientPatientDate: 03/15/2018 Clinician: Lacy Malone Clinician Cosigner: Carlyn Hermosillo Physician / Accounts Receivable Coordinator: Pillo Cota SUBJECTIVE Chief Complaint This information was obtained from the patient Diabetic ulcers to right and left foot. Allergies Minipress (Severity: Severe, Reaction: violent behavior), Vicodin (Severity: Mild, Reaction: itching), nortriptyline (Severity: Moderate), Avandia (Severity: Moderate) HPI This information was obtained from the patient 03/15/18. Seen by Mitch Cota PA-C. The patient reports that he is compliant with his COUSHATTA boot but notes increased bleeding and drainage seen in the boot. 03/11/18. Seen by Mitch Cota PA-C. The patient reports stable drainage from his diabetic foot ulcers. His blood sugars continue to be above 150 this week. 03/04/18. Seen by Dr. Howe. The patient continues to wear his COUSHATTA boot to offload the right foot 1st MTPJ diabetic ulcer and address the significant deformity associated with the partial lateral foot amputation and he does not report increased drainage associated with this ulcer nor the left plantar foot diabetic ulcer since his last. He recently completed a course of doxycycline to treat a group G Strep positive culture and is applying iodosorb to the ulcers to help manage the persistent drainage. 03/01/18. Seen by Dr. Howe. The patient continues to wear his COUSHATTA boot to offload the right foot 1st MTPJ diabetic ulcer and address the significant deformity associated with the partial lateral foot amputation. He does not report significant drainage associated with this ulcer nor the left plantar foot diabetic ulcer since his last. 02/25/18. Seen by Dr. Howe. The patient will complete his course of doxycycline today that's treating the Staph and group G Strep positive culture taken from the right foot diabetic ulcer. He does not report adverse side effects and nor significant drainage from the ulcer or the left plantar foot diabetic ulcer. 02/22/18. Seen by Dr. Howe. The patient is now on doxycycline for the Staph and group G Strep positive culture taken from the right foot diabetic ulcer last week. He notes some bloody drainage from this site on his dressing today but feels this ulcer and the left foot diabetic ulcer have improved over the past few week. He's offloading the right foot which has a partial lateral amputation using his COUSHATTA boot as recommended however he's not using a frame walker. He does not report adverse side effects of the antibiotics nor other acute issues today. 02/18/18. Seen by Dr. Howe. The staff report increased drainage associated with both plantar foot 1st MTPJ diabetic ulcers and the patient reports a malodor from the dressings over the past week. He does not report fevers, feeling unwell, or pain in the feet but states his blood sugars have been a bit elevated in the 180s. He's also wearing his COUSHATTA boot as recommended on the right foot but states he does not have enough room in his house to use a knee scooter and does not use his frame walker. 02/11/18. Seen by Dr. Howe. The patient continues to wear his COUSHATTA boot to offload the right foot 1st MTPJ diabetic ulcer and address the significant deformity associated with the partial lateral foot amputation. He does not report significant drainage associated with this ulcer nor the left plantar foot diabetic ulcer since his last visit however the nurse states the mole skin dressing was applied inappropriately over the left foot ulcer and was overlying the ulcer itself and soaked with drainage. 02/04/18. Seen by Dr. Howe. The patient continues to wear his COUSHATTA boot to offload the right foot 1st MTPJ diabetic ulcer and address the significant deformity associated with the partial lateral foot amputation. He does not report significant drainage associated with this ulcer nor the left plantar foot diabetic ulcer since his last visit. 01/28/2018. Seen by Dr. Howe. The patient is now wearing his COUSHATTA boot to offload the right foot 1st MTPJ diabetic ulcer and address the significant deformity associated with the partial lateral foot amputation. He does not report significant drainage associated with this ulcer nor the left plantar foot diabetic ulcer since his last visit. 01/26/18. Seen by Dr. Howe. The patient states he has been without his insulin for over a week which is likely the cause of his blood sugars being around 400 over the past few visits. He has also not contacted his orthotics provider regarding the offloading COUSHATTA boot to wear on the right foot noting his significant deformity caused by the partial lateral foot amputation. He has not report increased drainage or other acute changes regarding his bilateral diabetic foot ulcers and will complete his course of doxycycline its treated the recent MSSA positive culture tomorrow. He also reports nausea and one episode of emesis earlier today but not other acute issues. 01/21/2018. Seen by Dr. Howe. The patient arrived today with his right foot dressing upside down. His blood sugars are also over 400. The patient does not report increased drainage associated with the right or left diabetic foot ulcers however states his neuropathic pain has been significant over the past 2 days. He also is going to chicken picker his COUSHATTA boot today to help facilitate offloading of the right foot diabetic ulcer noted in he also has a partial lateral amputation on his foot that is contributed significantly 2. Ulcer callus formation. He also continues on doxycycline for he recent MSSA positive wound culture. 01/18/2018. Seen by Dr. Howe. The patient's wound culture from the left foot diabetic ulcer grew MSSA resistant to gentamicin. He is not currently on oral antibiotics and does not report increased drainage from either left right foot diabetic ulcers and is still waiting for his COUSHATTA boot to be available to help facilitate better offloading of the right foot noting his partial lateral right foot amputation and severe Charcot deformity. 01/14/18. Seen by Dr. Howe. The patient continues to report moderate drainage from the right and left diabetic foot ulcers over the past few days and he's seen his funeral home associate who's ordered a COUSHATTA boot for the right foot which should be available next week. He has severe bilateral Charcot deformities and partial right lateral foot amputation that contributes to the refractory nature of the ulcers and very heavy callus formation. 01/12/18. Seen by Dr. Howe. The patient reports moderate drainage from the right and left diabetic foot ulcers and he's seen his funeral home associate who's ordered a COUSHATTA boot for the right foot. He has bilateral partial lateral foot amputations which have resulted in refractory calluses of the bilateral plantar MTPJ's and associated DFU's. His blood have been well controlled and his recent hypoglycemic episodes have resolved. 01/07/18. Seen by Dr. Howe. The patient missed his last 2 appointments due to a GI illness last week and she reports some pain in the lateral aspect of the right forefoot but no increased drainage, swelling, or other acute changes of the diabetic foot ulcer. He also does not report any acute issues regarding the left diabetic foot ulcer. Of note, he has significant deformities of both feet due to partial amputations which have each contributed significantly to severe callus formation and the refractory nature of the ulcers. 01/01/18. Seen by Dr. Howe. The patient continues on clindamycin for the chronic right diabetic foot ulcer infection and it is not reported adverse side effects. He also does not report significant drainage associated with either left or right diabetic foot ulcer since his last visit. 12/28/17. Seen by Dr. Howe. The patient does not report increased drainage associated with either right or left foot diabetic ulcers since his last visit. He continues on clindamycin without reporting adverse side effects to treat the chronic right ulcer infection and his blood sugars are well controlled. Of note, he has been attending clinic twice weekly to optimize management of his recurrent and severe apollo-ulcer calluses that are in part due to his severe Charcot deformities and bilateral partial foot amputations. 12/21/17. Seen by Dr. Howe. The patient reports some drainage associated with the right foot diabetic ulcer since his last visit but none associated with the left foot diabetic ulcer. He completed his course of doxycycline today is treating the recent MSSA positive wound culture and is reported adverse side effects, fevers, feeling unwell. He states his blood sugars continue to be well controlled below 180. 12/15/17. Cinthia Howe. The patient's wound culture from the left plantar foot diabetic ulcer his last visit grew MSSA resistant to gentamicin. He does not report increased drainage or pain from either diabetic foot ulcers since his last visit. 12/10/17. Seen by REN Olea. The patient does not report increased drainage from his bilateral diabetic foot ulcers but does report continued odor. Notes a large amount of callous growth. Wound culture from last week showed MSSA and Diphtheroids. He has been applying topical gentamicin. 12/03/17. Seen by Mitch Cota PA-C. The patient reports increased drainage and odor from his bilateral diabetic foot ulcers. He continues to have elevated blood sugars. 11/26/17. Seen by Mitch Cota PA-C. The patient reports that he has decreased his usage of marijuana which he uses for recreation and to treat his neuropathy. He has not had a ground level fall since decreasing his usage. His blood sugars remain >150 and his ulcers' drainage is stable. 11/20/17. Seen by Mitch Cota PA-C. The patient reports no increase in his ulcer drainage from his bilateral lower extremity diabetic ulcers. He has not scheduled an appointment to see his PCP to address his consistently high blood sugars. 11/13/17. Seen by Mitch Cota PA-C. The patient reports stable drainage from his diabetic foot ulcers and continued difficulty keeping his blood sugars below 150. He also reports not wearing his diabetic shoes when at home. 11/09/17. Seen by Mitch Cota PA-C. The patient reports high blood sugars again this week. He does not report increased drainage though he notes callous formation continues to happen quickly between visits. 11/06/17. Seen by Dr. Howe. The patient does not report increased drainage associated with the chronic bilateral diabetic foot ulcers since the last visit. 11/02/17. Seen by Mitch Cota PA-C. The patient reports no increased drainage from his bilateral diabetic foot ulcers. He is not surprised that his blood sugar is low this morning as he did not eat dinner yesterday or breakfast today, citing mild GI discomfort. 10/30/17. Seen by Dr. Howe. The patient missed a few appointments recently due to our facility power outage however he does not report increased drainage or other acute issues regarding his bilateral first MTPJ plantar foot diabetic ulcers. 10/23/17. Seen by Mitch Cota PA-C. The patient reports that he did not take his insulin, or eat this morning. Drainage from his diabetic foot ulcers has been stable. 10/15/17. Seen by Mitch Cota PA-C. The patient reports high blood sugars this week and stable drainage from his foot ulcers. 10/13/17. Seen by Dr. Howe. The patient does not report increased drainage associated with the bilateral plantar foot diabetic ulcers since his last visit. 10/01/17. Seen by Dr. Howe. The patient does not report increased drainage associated with either left or right plantar foot diabetic ulcers since his last visit. 10/01/17. Seen by Dr. Howe. The patient does not report increased drainage associated with either left or right plantar foot diabetic ulcers since his last visit. 09/28/17. Seen by Dr. Howe. The patient does not report increased drainage associated with either left or right plantar foot diabetic ulcers since his last visit. He has been offloading as recommended as well. 09/24/17. Seen by Dr. Howe. The patient reports some increased drainage associated with the right chronic diabetic foot ulcer but none with the left chronic diabetic foot ulcer since his last visit. His blood sugars have been well controlled and he does not report pain in either feet or fevers or feeling unwell. He had been seen twice weekly due to the recent deterioration of the right foot ulcer and need for frequent debridement of the periulcer callus. 09/16/17. Seen by Dr. Howe. The patient does not report significant drainage associated with the bilateral plantar foot diabetic ulcers since last visit and his blood sugars are well controlled over the past week. 09/11/17. Seen by Dr. Howe. The patient states that the right foot diabetic ulcer bled significantly earlier this week when he got out of the shower. He had his INR checked yesterday and it was 3.5. He does not report increased drainage otherwise from either the left or right foot diabetic ulcers since his last visit. He's been seen as twice weekly for the past 2 weeks due to the very heavy accumulation of callus associated with the right foot ulcer. 09/08/17. Seen by Dr. Howe. The patient does not report increased drainage associated with bilateral foot diabetic ulcers since his last visit. 09/04/17. Seen by Dr. Howe. The patient does not report significant drainage associated with the bilateral plantar foot diabetic ulcers since last visit and his blood sugars are well controlled over the past week. 08/31/17. Seen by Dr. Howe. The patient does not report increased drainage associated with the bilateral plantar foot diabetic ulcers since his last visit and he continues on doxycycline for the positive right foot ulcer wound culture. His blood sugars have been well- controlled for the past week and he has had no further episodes of hypoglycemia. 08/26/17. Seen by Dr. Howe. The patient is now on doxycycline resistant MSSA positive wound culture taken from his right diabetic foot ulcer and does not report other side effects. He has picked up his new diabetic shoes and is wearing them as recommended. His blood sugar today is 58 in clinic and he has recently had his short-acting insulin increased by his primary care provider due to frequent episodes of hyperglycemia. He is scheduled to see his PCP again tomorrow to discuss the changes. 08/18/17. Seen by Mitch Cota PA-C. The patient reports a foul odor from his bilateral foot ulcers. He reports that he is feeling much better after an ER trip for hypoxia and his recent O2 saturation readings have been 100%. 08/06/17. Seen by Dr. Howe. The patient reports feeling unwell along with progressive shortness of breath while at rest over the past week. He says he had a low- grade fever at home today and staff report is O2 sats in low 90s upon arrival. He has a history of COPD also with possible admission for pneumonia within the past year. He is here for review of chronic diabetic foot ulcers that have been relatively stable for the past few weeks. 07/28/17. Seen by Mitch Cota PA-C. The patient reports increased drainage and bleeding from his diabetic foot ulcers. 07/20/17. Seen by Mitch Cota PA-C. The patient reports no increase in ulcer drainage since his last evaluation. 07/16/17. Seen by Mitch Cota PA-C. The patient has recently been in hospital where he had a NON-STEMI. He reports a reduction in drainage and wound odor after starting Augmentin. 07/01/17. Seen by Dr. Howe. The patient does not report significant drainage associated with the chronic bilateral plantar foot diabetic ulcers since his last visit. He will be picking up his new diabetic shoes today noting his partial right lateral foot amputation and multiple bilateral toe amputations plus Charcot deformity of both feet are contributing significantly to the recurrent heavy callus formation in the apollo-ulcer areas. He also states that he has not been covering his feet when he is in the shower despite our recommendation to do so. 06/19/17. Seen by Dr. Howe. The patient does not report significant drainage associated with the chronic bilateral plantar MTPJ diabetic ulcers since his last visit. Of note , the patient's blood sugar is 42 in clinic and was 35 earlier this morning. He's mildly symptomatic and is with his son who states the patient's food intake has been a bit less than usual due to limited funds at the end of the month. The patient also admits to trying to keep his blood sugars below 140 at all times and has had the problem of hypoglycemia in our clinic a number of times over the past year. 06/12/17. Seen by Dr. Howe. The patient does not report significant drainage associated with the chronic bilateral plantar MTPJ diabetic ulcers since his last visit. 06/05/17. Seen by Dr. Howe. The patient does not report significant drainage associated with the chronic bilateral plantar MTPJ diabetic ulcers since his last visit. He continues on Augmentin based on the recent wound culture and does not report adverse side effects. He also was seen by Dr. Garcia and his new diabetic shoes have been ordered noting his significant history of right lateral foot amputation and multiple toe amputations plus bilateral Charcot deformities. 05/29/17. Seen by Dr. Howe. The patient's wound culture from 2 days ago of a new right foot diabetic ulcer grew Streptococcus as well as Staph. He does not report increased drainage from this ulcer nor the chronic left foot diabetic ulcer. He is also not yet been seen by podiatry although we did send the referral over a couple weeks ago. His blood sugars continue to be well controlled and of note he has had extensive amputations of both the lateral aspect of the right foot as well as toes on both feet which has contributed significantly to recurrent callus and diabetic ulcer formation. 05/27/17. Seen by Mitch Cota PA-C. The patient reports a new ulcer to his right great toe that he believes has been continuously present for about a week. He denies any trauma to the area though states he may have been walking more lately. He is insensate and notes no pain, though he has seen purulent drainage in the area and notes a foul odor. 05/12/17. Seen by Dr. Howe. The patient does not report significant drainage associated with the chronic left plantar foot diabetic ulcer and he notes that heavy callus again has formed on the right plantar foot surface at the site of his recently healed diabetic ulcer. He has severe bilateral Charcot deformities along with multiple toe amputations that are contributing significantly to health information and the refractory and recurrent nature of his diabetic foot ulcers. He's also asked for us to address his toe nails today as it's been weeks since they've been trimmed. 05/05/17. Seen by Dr. Howe. The patient presents today with low blood sugars in the 40's and states he is feeling unwell in the waiting room. Upon my review he is lucid and eating and his blood sugars have increased into the 50s. He does not report any new problems regarding his chronic left foot diabetic ulcer and states that he has not discussed his hypoglycemia with his primary care provider yet despite having a number of episodes throughout the month. 04/28/17. Seen by Dr. Howe. The patient reports recurrence of his left plantar foot diabetic ulcer over the past week along with some new drainage that's quite malodorous. He does not report pain in the foot nor fevers nor any acute issues regarding his right lateral foot diabetic ulcer. He states his blood sugars continue to be well controlled with most below 120. 04/21/17. Seen by Dr. Howe. The patient does not report pain or drainage associated with the chronic right foot diabetic ulcers since his last visit. 04/14/17. Seen by Dr. Howe. The patient does not report pain or drainage associated with the chronic right foot diabetic ulcers since his last visit. His work diabetic shoe as recommended noting he is a partial right foot and right second toe amputations along with a significant Charcot deformity. 04/07/17. Seen by Dr. Howe. The patient does not report significant drainage or pain associated with the chronic right lower leg diabetic ulcers since his last visit. He snoring softly and she was recommended and reports his blood sugars have been well controlled. Of note, his significant deformity of the right foot including partial lateral amputation as well as second toe amputation and a significant Charcot deformity. 04/02/17. Seen by Dr. Howe. The patient reports that a coin accidentally fell into his right lower leg total contact cast a couple days ago. The staff found a johnson upon removing the cast as well as a new ulcer over the lateral aspect of the right foot. The patient does not report pain at the site nor does staff report significant drainage associated with new ulcer nor the chronic right plantar foot diabetic ulcer. The patient's blood sugars continue to be well controlled and he has no other acute complaints at this time. 03/28/17. Seen by Mitch Cota PA-C. The patient's recent wound culture demonstrated no growth. He has not noted increased drainage since his last evaluation. 03/23/17. Seen by Mitch Cota PA-C. The patient reports no increase in right foot ulcer drainage since his last evaluation. In addition his wound culture demonstrated no growth. 03/17/17. Seen by Dr. Howe. The patient does not report increased drainage associated with the chronic right first MTPJ diabetic ulcer.He completed his course of antibiotics that was treating the recent positive wound culture and does not report adverse side effects. He continues offload with a surgical shoe as well. 03/09/17. Seen by Dr. Howe. The patient does not report pain or significant drainage associated with the recurrent right foot diabetic ulcer. His culture of the ulcer was positive for a staph organism and Acinetobacter however he's not yet been started on antibiotics. He states his blood sugars continue to be well-controlled with most below 150. 03/02/17. Seen by Mitch Cota PA-C. The patient reports no improvement in drainage from his diabetic ulcer of the right foot. He has noted odor at times coming from the ulcer. 02/23/17. Seen by Mitch Cota PA-C. The patient reports no increase in drainage from his diabetic ulcer of the right foot. 02/09/17. Seen by Mitch Cota PA-C. The patient reports that he has just begun taking Bactrim for his infection of his right foot diabetic ulcer. He reports continued purulent drainage and odor. 02/02/17. Seen by Mitch Cota PA-C. The patient returns to our clinic with a new ulcer of his right first metatarsal head. He reportedly smacked his foot hard on the floor, creating this ulcer, in an attempt to stop an episode of neuropathy. 11/10/16. Seen by Mitch Cota PA-C. The patient returns for evaluation of his recently healed ulcer, fearing that it is open again. He has not seen liquid drainage but fears it is draining under the callous. 11/04/16. Seen by Mitch Cota PA-C. The patient does not report any difficulties with his TCC this week. 10/24/16. Seen by Dr. Howe. The patient does not report any problems regarding his TCC and staff do not repot significant drainage on the dressing overlying the left plantar foot diabetic ulcer. His blood sugars remain well controlled with most below 150. 10/20/16 Seen by Mitch Cota PA-C. The patient is here for placement of a TCC to offload his left plantar foot diabetic ulcer. He notes that the drainage from his ulcer has soaked through the TCC under-layers and almost soaked through the cast. 10/15/16. Seen by Dr. Howe. The patient tolerated his TCC with minimal discomfort noting mild pain in the left 1st toe. The staff do not report significant drainage associated with the chronic left plantar foot diabetic ulcer and he states his blood sugars are mostly below 150. He's now been placed in a TCC to optimize offloading needed to accommodate for the left foot Charcot deformity that's lead to recurrent heavy callus formation in the periulcer area. 10/13/16 Seen by Mitch Cota PA-C. The patient reports no increase in drainage from his left foot diabetic non-pressure ulcer since his last evaluation. 09/29/15 Seen by Mitch Cota PA-C. The patient reports no increase in drainage from his chronic left foot diabetic ulcer. He does voice frustration that his wound is taking so long to heal. 09/19/16. Seen by Dr. oHwe. The patient does not report increased drainage or other acute issues regarding his chronic left plantar foot diabetic ulcer since his last visit. 09/12/16. Seen by Dr. Howe. The patient does not report significant drainage associated with the chronic left plantar foot diabetic ulcer over the past week. He's applying Kerasal to the periwound callus as recommended and has limited his walking considerably, in addition to wearing an offloading shoe, to minimize callus formation. His blood sugars also remain well controlled with most below 150 and he continues on Bactrim for an infection of the ulcer without reporting adverse side effects. 09/05/16. Seen by Dr. Howe. The patient returns to clinic with recurrent of his left plantar foot diabetic ulcer that he states reopened about 2 weeks ago. He was placed on Keflex by his PCP yesterday due to the appearance of the ulcer and significant drainage. He states his blood sugars are well controlled and he limits his walking to help facilitate offloading. 07/28/16. Seen by Dr. Howe. The patient does not report significant drainage associated with the chronic left plantar foot diabetic ulcer over the past week. He's applying Kerasal to the periwound callus as recommended and states his blood sugars are consistently below 150. He does report ongoing nausea for the past few weeks and states he's on 3 nausea medications but does not know what's causing it. He's working with his PCP on this problem. 07/15/16 Seen by Mitch Cota PA-C. The patient reports no fever chills or pain from his left foot diabetic ulcer since his last evaluation. 07/10/16. Seen by Dr. Howe. The patient does not report significant drainage associated with the chronic left plantar foot diabetic ulcer over the past week. He's applying Kerasal to the periwound callus as recommended and has limited his walking considerably, in addition to wearing an offloading shoe, to minimize callus formation. 07/08/16 Seen by Mitch Cota PA-C. The patient reports no increase in pain or drainage from his ulcer, though he does report nausea and vomiting. After further review, it appears that his PPI prescription has run out and he stopped it abruptly. He has not had associated fever, chills or lower GI symptoms. His blood sugars have reportedly been above 150 this week. The patient reports that he still has problems with callous formation on his feet and will be seeing podiatry. 07/04/16. Seen by Dr. Howe. The patient does not report significant drainage associated with the chronic left plantar foot diabetic ulcer since his last visit. He does report significant nausea and vomiting over the past week however but does not report fever, cough, or other specific symptoms and feels the nausea has started to improve as of yesterday. He states his blood sugars have been well controlled with most below 150 and he's on Augmentin for the recent MSSA and Strep positive wound culture. He's also been applying Kerasal to the periwound callus as recommended and has been limited in his walking the past week due to illness. 06/23/16 Seeb by Mitch Cota PA-C. The patient reports that he believes he has an infection in his foot because his dog has been sniffing and licking his open ulcer. He believes his dog has a nose for infection. He reports a continuous, strong, foul odor from his left plantar foot ulcer for the past 3 days with an associated increase in drainage. In addition he has not been offloading his foot as instructed and is going barefoot at home. 06/16/16 Seen by Mitch Cota PA-C. The patient reports that he is walking barefoot in the house and only wears shoes outside the house. His left foot diabetic ulcer drainage has been stable. 06/02/16 Seen by Mitch Cota PA-C. The patient reports that he is due to have a new orthotic fitted for his deformed left foot to further offload his chronic left foot ulcer. He reports stable drainage from this ulcer. 05/27/16 Seen by Mitch Cota PA-C. The patient reports that he now has a new wound near his chronic left plantar foot diabetic ulcer. The new wound began spontaneously and was noted today. His chronic ulcer has had stable drainage. 05/19/16. Seen by Dr. Howe. The patient does not report significant drainage associated with the chronic left plant foot diabetic ulcer over the past week and he states his blood sugars are well controlled with most below 150. 05/12/16. Seen by Dr. Howe. The patient reports some new pain along the right foot surgical scar but no swelling or drainage from the site. He does not recall injuring the foot and feels he may have been more active over the past week. He does not report significant or drainage associated with the left plantar foot diabetic ulcer and states he's not been able to check his blood sugars due to the fact he ran out of glucometer strips this past week. His blood sugar today is 280. 04/11/16. Seen by Dr. Howe. The patient does not report pain or drainage associated with the chronic right lateral foot diabetic ulcer of the past week. He states his blood sugars are consistently below 150 and he is wearing his offloading shoe is recommended. 04/04/16. Seen by Dr. Howe. 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 He states his blood sugars are mostly below 150 and he's offloading using a surgical offloading shoe. He's now off of antibiotics and is here today with his granddaughter who's assisting with his care. 03/31/16 Seen by Mitch Cota PA-C. The patient has returned from [facility] where he had a 4th ray amputation performed to his right foot. He reports that he was supposed to have follow up appointments with surgery, cardiology and wound care but has not attended any of these appointments due to transportation difficulties. He is unsure of when his sutures are supposed to be removed. 02/28/16 Seen by Mitch Cota PA-C. The patient was seen at [facility] and evaluated by Dr. Monae on an urgent basis as arranged by Dr. Howe at his last visit. The patient reports that Dr. Monae wanted to urgently take him to surgery but the patient would prefer to have Dr. Garcia do it and refused admission to the hospital. 02/21/[address] Howe. The patient does not report pain or significant drainage associated with the Alonzo grade 3 right lateral foot diabetic ulcer and he saw Dr. Garcia , podiatry, this morning who reportedly states she's not able to perform any additional debridement until his right leg vascular status is further evaluated. He had an arterial Doppler scheduled yesterday however both the patient and his son state they were unaware of the appointment. He started taking his Augmentin, which is treating the MSSA and Strep viridans culture from 02/15/16, following the last visit as recommended, states his blood sugars have been consistently below 150 over the past week, and he's offloading by wearing a surgical shoe and significantly limiting his walking. Of note, he's still on supplemental oxygen following his recent hospital discharge and gets short of breath on minimal exertion. Please see my note below from his last visit regarding details of the admission and amputation. 02/15/[address] Howe. The patient does not report pain associated with the right lateral foot diabetic ulcer. He was discharged 4 days ago following a partial ray amputation of the 5th toe and MT due a progressive foot infection that he states occurred over about 2 days prior to being admitted to the hospital. His wound culture on arrival to the ER was polymicrobial and reported on Group C Strep. He was treated with IV Zosyn during the admission and prescribed Augmentin on discharge however he's not yet picked up the prescription. His blood sugars have been relatively well controlled with most below 150 since discharge. Of note, he also had a non-ST elevation PR post-operatively, acute on chronic renal failure with a Cr of 1.8 on discharge, and acute respiratory failure and continues on supplemental oxygen. 12/27/[address] Howe. The patient does not report drainage or pain associated with the chronic right plantar foot diabetic ulcer over the past week. He's not been applying Kerasal to the associated callus as recommended however he does not have diabetic shoes and a new AFO that he's been wearing. His blood sugars also remain relatively well controlled below 150 consistently. 12/06/[address] Howe. The patient does not report pain or significant drainage from the chronic right plantar foot diabetic ulcer. His blood sugars remain well controlled around 120 and he's now wearing his new diabetic shoes and offloading by limiting his walking significantly. He's also applying Kerasal daily to the right foot calluses as recommended. 11/29/[address] Howe. The patient does not report significant drainage from the chronic right plantar foot diabetic ulcer and he states his blood sugars remain well controlled below 150. He's also wearing his diabetic shoes now and limiting his walking to facilitate offloading. 11/23/[address] Howe. The patient reports moderate drainage but no pain associated with the chronic right plantar foot diabetic ulcer. He continues on doxycycline for a polymicrobial positive wound culture and he states his blood sugars remain well controlled with most below 120. 11/15/[address] Howe. The patient's wound culture from the last visit grew Enterobacter, Staph, and group G Strep however he's not yet picked up his prescription for doxycycline. He has at least moderate serosanquinous drainage on the dressing and states he's been a bit more active this past week as his son has been sick and unable to do the shopping. His blood sugar was also elevated yesterday near 200 but has been relatively well controlled prior to that. 11/08/15 Seen by Mitch Cota PA-C. The patient reports that his son is sick and he has been up on his feet taking care of him and has been unable to stay off of his feet. He has noted more drainage from his right plantar foot diabetic ulcer in the past few days. He also reports that his current shoes with inserts are making a large callous on his right heel and he doesn't feel that they offload his ulcer, so he has been trying to walk on the lateral edge of his right foot to offload his ulcer, and now is having lateral right foot pain as a result. 11/01/[address] Howe. The patient admits to being more active over the past two weeks but states there's only been very minimal drainage from the right plantar foot diabetic ulcer. His blood sugars also remain well controlled below 150 consistently. 10/18/[address] Howe. The patient does not report drainage from the right foot plantar diabetic ulcer however he states he has been more active the past week in terms of walking. His blood sugars also remain well controlled below 150. 10/11/[address] Howe. The patient does not report pain or drainage associated with the right plantar foot nor heel diabetic ulcers. 10/04/[address] Howe. The patient does not report drainage from the right plantar foot diabetic ulcer and he continues to use Kerasal daily for the significant right heel callus. His blood sugars are also well controlled below 120 consistently. 09/27/[address] Howe. The patient reports only minimal drainage from the right plantar foot diabetic ulcer and states his blood sugars continue to improve with most between 120 and 180. He's also applying Kerasal to the bilateral foot calluses daily as we've requested. 09/19/[address] Howe. The patient reports significantly decreased drainage from the right plantar foot diabetic ulcer and he'll complete his course of levofloxacin today that treating the polymicrobial wound culture from 09/04/15. His blood sugars are also much better controlled over the past week with most around 150 and very few over 200. 09/12/[address] Howe. The patient continues to report significant drainage from the right plantar diabetic foot ulcer and his wound culture from 09/04/15 grew Strep , Providencia, and Neisseria species. He's now on levofloxacin and does not report adverse effects. He's also no longer experiencing severe hypoglycemic episodes and is working closely with is PCP on adjusting his insulin regimen. His blood sugars due tend to remain over 200 however. 09/07/[address] Howe. The patient continues to report blood sugars as low as the 40's since our visit last week. Regarding his foot ulcers, he reports continued foul smelling drainage from the right foot diabetic ulcer but none from right heel or left foot diabetic ulcer. His blood sugars also may be as high as 300 and he states he's compliant with his diabetes medication regimen and will require as much as 30-40 units of short acting insulin on occasion. He does not report pain in the feet nor fevers or other systemic symptoms. 08/31/[address] Howe. The patient is new to our clinic. On arrival he was not feeling well and was tremulous. The MA checked his blood sugar and is registered 34 which is the lowest the glucometer would read. I spoke with him and he reported feeling very unwell at which time he was urgently transferred to the ER. Of note, he was in the clinic to review bilateral diabetic foot ulcers. He'd also recently lost a son and has been very upset the past week according to staff. Family History This information was obtained from the patient Cancer - Father, Diabetes - Mother, Heart Disease - Mother, Stroke - Mother Social History This information was obtained from the patient Former smoker - quit at age 42, Alcohol Use - rare, Caffeine Use - 1 coffee per day, Children - 2 children, Lives in - Private home with son, Marital Status - , Retired , Substance Abuse - Marijuana Past Medical History This information was obtained from the patient Patient has a medical history of: Chronic Obstructive Pulmonary Disease (COPD) Type II Diabetes (A1c 7.4 on 11/12/2015) PAD Peripheral neuropathy Hypoglycemia CVA Diabetic foot ulcer (Right plantar 1st MTPJ, Alonzo grade II) Coronary Artery Disease (CAD) (s/p PR during admission on 02/04/2016) Lumbar strain CHF Hyperlipidemia CKD stage 3 Gout Diabetic foot ulcer - 02/04/2016 (right lateral foot s/p partial ray amputation; Alonzo grade 3; MSSA and Strep viridans cultured) Complaints and Symptoms This information was obtained from the patient Patient complains of: General Notes: I have reviewed and concur with the Review of Systems and Past Family Social History documents completed by the clinician, I have reviewed and concur with the Wound Assessment document completed by the clinician Cardiovascular (Central): Dyspnea on Exertion Ear/Nose/Mouth/Throat: Hearing Loss / Aid Integumentary (Hair/Skin/Nails): Open Sore Musculoskeletal: Assistive Devices, Deformities Neurological: Loss of Protective Sensation Prior Wound History: Drainage, Erythema, Malodor Patient denies complaints or symptoms related to: Cardiovascular (Central/Peripheral): Intermittent Claudication, Lower extremity (leg) resting pain Constitutional Symptoms (General Health): Chills, Fever Gastrointestinal (GI): Nausea / Vomiting, Stomach/abdominal pain Hematologic/Lymphatic: Bleeding / Clotting Disorders, Bleeding Tendency Musculoskeletal: Muscle Weakness Prior Wound History: Bleeding, Pain Psychiatric: Anxiety, Memory Loss Respiratory: Oxygen Use, Shortness of Breath OBJECTIVE Constitutional Vital signs reviewed and noted. Well developed, lucid, and in no acute distress. . Height/Length: 72 in (182.88 cm), Weight: 227.7 lbs (103.5 kgs), BMI: 30.9, Temperature: 98.1 ?F (36.72 ?C), Pulse: 75 bpm, Respiratory Rate: 18 breaths/min, Blood Pressure: 142/66 mmHg, Pulse Oximetry: 94 %. Vital Signs Notes: Patient did not take blood sugar today. Ears, Nose, Mouth, and Throat: Grossly intact. Respiratory: No respiratory distress. Even respirations and without use of accessory muscles.. Gastrointestinal (GI): Obese. Nondistended.. Integumentary (Hair, Skin) Refer to appropriate clinician wound documentation for this visit; ulcer extends to subcutaneous fat layer. . Wound #11 Left Metatarsal head first is a chronic Alonzo Grade 2 Diabetic Ulcer and has received a status of Not Healed. Subsequent wound encounter measurements are 1.5cm length x 0.1cm width x 0.6cm depth, with an area of 0.15 sq cm and a volume of 0.09 cubic cm. No tunneling has been noted. No sinus tract has been noted. No undermining has been noted. There is a moderate amount of sero-sanguineous drainage noted which has no odor. The patient reports no wound pain due to the wound being insensate. The wound margin is callus. Wound bed has No epithelialization, No eschar, No slough, Yes pink, spongy granulation. The periwound skin color is normal. The periwound skin exhibited: Callus, Moist , Maceration. The periwound skin did not exhibit: Brawny Induration, Edema, Excoriation, Induration, Crepitus, Fluctuance, Friable, Rash, Dry/Scaly. The temperature of the periwound skin is WNL. Periwound skin does not exhibit signs or symptoms of infection. Local Pulse is Palpable. Wound #12 Right, Plantar Metatarsal head first is a Alonzo Grade 2 Diabetic Ulcer and has received a status of Not Healed. Subsequent wound encounter measurements are 2cm length x 1cm width x 0.3cm depth, with an area of 2 sq cm and a volume of 0.6 cubic cm. Tunneling has been noted at 7:00 with a maximum distance of 0.8cm. No undermining has been noted. There is a moderate amount of sanguineous drainage noted which has no odor. The patient reports no wound pain due to the wound being insensate. The wound margin is callus. Wound bed has No epithelialization, No eschar, No slough, Yes pink, firm granulation. The periwound skin color is normal. The periwound skin exhibited: Callus, Moist , Maceration. The periwound skin did not exhibit: Brawny Induration, Edema, Excoriation, Induration, Crepitus, Fluctuance, Friable, Rash, Dry/Scaly. The temperature of the periwound skin is WNL. Periwound skin does not exhibit signs or symptoms of infection. Local Pulse is Normal. Psychiatric: Judgement and insight: Normal affect with normal thought pattern. Alert and oriented 3/3. Memory grossly intact.. Normal affect. Mood appropriate.. 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 A skin/ subcutaneous tissue level surgical debridement with a total area debrided of 0.15 sq cm was performed by Pillo Cota PA. Subcutaneous was removed along with devitalized tissue: callus and exudate. The following instrument(s) were used: curette, forceps, and scissors. Pain control was achieved using 4% Lido. A time out was conducted prior to the start of the procedure. A minimal amount of bleeding was controlled with pressure. The procedure was tolerated well with a pain level of 0 throughout and a pain level of 0 following the procedure. Post Debridement Measurements: 1.5cm length x 0.1cm width x 0.6cm depth; with an area of 0.15 sq cm and a volume of 0.09 cubic cm; Wound #12 Wound #12 (Diabetic Ulcer) is located on the right, plantar metatarsal head first. A skin/subcutaneous tissue level surgical debridement with a total area debrided of 2 sq cm was performed by Pillo Cota PA. to remove devitalized tissue: callus, exudate, and slough. The following instrument(s) were used: curette. Pain control was achieved using 4% Lido. A time out was conducted prior to the start of the procedure. A minimal amount of bleeding was controlled with pressure. The procedure was tolerated well with a pain level of 0 throughout and a pain level of 0 following the procedure. Post Debridement Measurements: 2cm length x 1cm width x 0.3cm depth; with an area of 2 sq cm and a volume of 0.6 cubic cm; Additional Information Muscle fascia or bone removed and sent to pathology?: No Muscle fascia or bone removed and sent to pathology?: No PLAN Wound Orders: Wound #11 Left Metatarsal head first Anesthetic Topical Xylocaine to wound bed. - In clinic only. Cleanser Cleanse Wound: - Normal saline and gauze, may use distilled water at home. May Shower. - Keep covered in shower with cast protector or plastic bag. Topical Treatments Antibiotic/Antimicrobial Ointment/Cream. - Gentamicin ointment Dressings Cover and secure with: - Foam and hypafix tape. Change Dressing: - Daily. Wound #12 Right, Plantar Metatarsal head first Anesthetic Topical Xylocaine to wound bed. - In clinic only. Cleanser Cleanse Wound: - Normal saline and gauze, may use distilled water at home. May Shower. - Keep covered in shower with cast protector or plastic bag. Topical Treatments Antibiotic/Antimicrobial Ointment/Cream. - Gentamicin ointment Dressings Cover and secure with: - Foam and hypafix tape. Change Dressing: - Daily. Additional Orders: Off-Loading Keep weight off: - Both feet as much as possible. Follow-Up Appointments Return Appointment: - - Mondays and . Other information: If you develop fever, chills, increased pain, drainage, redness or swelling please call our office. If after hours, respond to the ER. Should you experience any significant changes in your wound(s) or have any questions regarding your home care instructions please contact the wound center @ [phone]. If after hours, contact your primary care physician or go to the hospital emergency room. Scribing Attestation I attest, as the nurse, that I scribed these orders for the physician. General Notes: Please see [place] to have an insole made for both feet to fit in your shoe and [place] Boot to off- load wounds. I've reviewed the clinician's documentation and agree with the evaluation and plan as written. Greater than 25 minutes were spent [id number] with the patient during this encounter and over 50% of that time was spent on education, counseling and coordination of care. We discussed offloading strategies which are critical to healing of his ulcers. He is to return to [facility] to have his [place]SH[place] boot adjusted for better offloading. In addition the patient's ulcers demonstrate evidence of non-viable devitalized tissue which benefits from sharp debridement. Electronic Signature(s) Signed By: Date: Mitch Cota 03/15/2018 22:45:03 Entered By: Mitch Cota on 03/15/2018 22:24:30
== END ==
PROVIDERS: Family Provider Physician Assistant Medical; PCP Physician Assistant Medical; Visit Provider Physician Assistant
DX: E11.621 Type 2 diabetes mellitus with foot ulcer (principal); L97.522 Non-pressure chronic ulcer of other part of left foot with fat layer exposed; L97.512 Non-pressure chronic ulcer of other part of right foot with fat layer exposed
CPT/HCPCS: 11042; 93925

== ENCOUNTER → 2018-03-22 10:39 | Outpatient (CLI) | payer MEDICARE, SELFPAY ==
--- NOTE | 2018-03-22 | OV.WND_ITS ---
Progress Note Details Patient Name: Nick Drake Patient Number: [id number] PatientPatientDate: 03/22/2018 Clinician: Mary Rosales Clinician Cosigner: Rina Bentley Physician / Coronary Clinical Specialist: Nando Howe SUBJECTIVE Chief Complaint This information was obtained from the patient Diabetic ulcers to right and left foot. Allergies Minipress (Severity: Severe, Reaction: violent behavior), Vicodin (Severity: Mild, Reaction: itching), nortriptyline (Severity: Moderate), Avandia (Severity: Moderate) HPI This information was obtained from the patient 03/22/18. Seen by Dr. Howe. The patient continues to wear his [employer] boot to offload the right foot 1st MTPJ diabetic ulcer and address the significant deformity associated with the partial lateral foot amputation and he does not report increased drainage associated with this ulcer nor the left plantar foot diabetic ulcer since his last. 03/15/18. Seen by Mitch Cota PA-C. The patient reports that he is compliant with his [employer] boot but notes increased bleeding and drainage seen in the boot. 03/11/18. Seen by Mitch Cota PA-C. The patient reports stable drainage from his diabetic foot ulcers. His blood sugars continue to be above 150 this week. 03/04/18. Seen by Dr. Howe. The patient continues to wear his [employer] boot to offload the right foot 1st MTPJ diabetic ulcer and address the significant deformity associated with the partial lateral foot amputation and he does not report increased drainage associated with this ulcer nor the left plantar foot diabetic ulcer since his last. He recently completed a course of doxycycline to treat a group G Strep positive culture and is applying iodosorb to the ulcers to help manage the persistent drainage. 03/01/18. Seen by Dr. Howe. The patient continues to wear his [employer] boot to offload the right foot 1st MTPJ diabetic ulcer and address the significant deformity associated with the partial lateral foot amputation. He does not report significant drainage associated with this ulcer nor the left plantar foot diabetic ulcer since his last. 02/25/18. Seen by Dr. Howe. The patient will complete his course of doxycycline today that's treating the Staph and group G Strep positive culture taken from the right foot diabetic ulcer. He does not report adverse side effects and nor significant drainage from the ulcer or the left plantar foot diabetic ulcer. 02/22/18. Seen by Dr. Howe. The patient is now on doxycycline for the Staph and group G Strep positive culture taken from the right foot diabetic ulcer last week. He notes some bloody drainage from this site on his dressing today but feels this ulcer and the left foot diabetic ulcer have improved over the past few week. He's offloading the right foot which has a partial lateral amputation using his [employer] boot as recommended however he's not using a frame walker. He does not report adverse side effects of the antibiotics nor other acute issues today. 02/18/18. Seen by Dr. Howe. The staff report increased drainage associated with both plantar foot 1st MTPJ diabetic ulcers and the patient reports a malodor from the dressings over the past week. He does not report fevers, feeling unwell, or pain in the feet but states his blood sugars have been a bit elevated in the 180s. He's also wearing his [employer] boot as recommended on the right foot but states he does not have enough room in his house to use a knee scooter and does not use his frame walker. 02/11/18. Seen by Dr. Howe. The patient continues to wear his [employer] boot to offload the right foot 1st MTPJ diabetic ulcer and address the significant deformity associated with the partial lateral foot amputation. He does not report significant drainage associated with this ulcer nor the left plantar foot diabetic ulcer since his last visit however the nurse states the mole skin dressing was applied inappropriately over the left foot ulcer and was overlying the ulcer itself and soaked with drainage. 02/04/18. Seen by Dr. Howe. The patient continues to wear his [employer] boot to offload the right foot 1st MTPJ diabetic ulcer and address the significant deformity associated with the partial lateral foot amputation. He does not report significant drainage associated with this ulcer nor the left plantar foot diabetic ulcer since his last visit. 01/28/2018. Seen by Dr. Howe. The patient is now wearing his [employer] boot to offload the right foot 1st MTPJ diabetic ulcer and address the significant deformity associated with the partial lateral foot amputation. He does not report significant drainage associated with this ulcer nor the left plantar foot diabetic ulcer since his last visit. 01/26/18. Seen by Dr. Howe. The patient states he has been without his insulin for over a week which is likely the cause of his blood sugars being around 400 over the past few visits. He has also not contacted his orthotics provider regarding the offloading M[employer] boot to wear on the right foot noting his significant deformity caused by the partial lateral foot amputation. He has not report increased drainage or other acute changes regarding his bilateral diabetic foot ulcers and will complete his course of doxycycline its treated the recent MSSA positive culture tomorrow. He also reports nausea and one episode of emesis earlier today but not other acute issues. 01/21/2018. Seen by Dr. Howe. The patient arrived today with his right foot dressing upside down. His blood sugars are also over 400. The patient does not report increased drainage associated with the right or left diabetic foot ulcers however states his neuropathic pain has been significant over the past 2 days. He also is going to chart picker his [employer] boot today to help facilitate offloading of the right foot diabetic ulcer noted in he also has a partial lateral amputation on his foot that is contributed significantly 2. Ulcer callus formation. He also continues on doxycycline for he recent MSSA positive wound culture. 01/18/2018. Seen by Dr. Howe. The patient's wound culture from the left foot diabetic ulcer grew MSSA resistant to gentamicin. He is not currently on oral antibiotics and does not report increased drainage from either left right foot diabetic ulcers and is still waiting for his [employer] boot to be available to help facilitate better offloading of the right foot noting his partial lateral right foot amputation and severe Charcot deformity. 01/14/18. Seen by Dr. Howe. 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 He has severe bilateral Charcot deformities and partial right lateral foot amputation that contributes to the refractory nature of the ulcers and very heavy callus formation. 01/12/18. Seen by Dr. Howe. The patient reports moderate drainage from the right and left diabetic foot ulcers and he's seen his ammunition assembly ii laborer who's ordered a [employer] boot for the right foot. He has bilateral partial lateral foot amputations which have resulted in refractory calluses of the bilateral plantar MTPJ's and associated DFU's. His blood have been well controlled and his recent hypoglycemic episodes have resolved. 01/07/18. Seen by Dr. Howe. The patient missed his last 2 appointments due to a GI illness last week and she reports some pain in the lateral aspect of the right forefoot but no increased drainage, swelling, or other acute changes of the diabetic foot ulcer. He also does not report any acute issues regarding the left diabetic foot ulcer. Of note, he has significant deformities of both feet due to partial amputations which have each contributed significantly to severe callus formation and the refractory nature of the ulcers. 01/01/18. Seen by Dr. Howe. The patient continues on clindamycin for the chronic right diabetic foot ulcer infection and it is not reported adverse side effects. He also does not report significant drainage associated with either left or right diabetic foot ulcer since his last visit. 12/28/17. Seen by Dr. Howe. The patient does not report increased drainage associated with either right or left foot diabetic ulcers since his last visit. He continues on clindamycin without reporting adverse side effects to treat the chronic right ulcer infection and his blood sugars are well controlled. Of note, he has been attending clinic twice weekly to optimize management of his recurrent and severe apollo-ulcer calluses that are in part due to his severe Charcot deformities and bilateral partial foot amputations. 12/21/17. Seen by Dr. Howe. The patient reports some drainage associated with the right foot diabetic ulcer since his last visit but none associated with the left foot diabetic ulcer. He completed his course of doxycycline today is treating the recent MSSA positive wound culture and is reported adverse side effects, fevers, feeling unwell. He states his blood sugars continue to be well controlled below 180. 12/15/17. Cinthia Howe. The patient's wound culture from the left plantar foot diabetic ulcer his last visit grew MSSA resistant to gentamicin. He does not report increased drainage or pain from either diabetic foot ulcers since his last visit. 12/10/17. Seen by REN Olea. The patient does not report increased drainage from his bilateral diabetic foot ulcers but does report continued odor. Notes a large amount of callous growth. Wound culture from last week showed MSSA and Diphtheroids. He has been applying topical gentamicin. 12/03/17. Seen by Mitch Cota PA-C. The patient reports increased drainage and odor from his bilateral diabetic foot ulcers. He continues to have elevated blood sugars. 11/26/17. Seen by Mitch Cota PA-C. The patient reports that he has decreased his usage of marijuana which he uses for recreation and to treat his neuropathy. He has not had a ground level fall since decreasing his usage. His blood sugars remain >150 and his ulcers' drainage is stable. 11/20/17. Seen by Mitch Cota PA-C. The patient reports no increase in his ulcer drainage from his bilateral lower extremity diabetic ulcers. He has not scheduled an appointment to see his PCP to address his consistently high blood sugars. 11/13/17. Seen by Mitch Cota PA-C. The patient reports stable drainage from his diabetic foot ulcers and continued difficulty keeping his blood sugars below 150. He also reports not wearing his diabetic shoes when at home. 11/09/17. Seen by Mitch Cota PA-C. The patient reports high blood sugars again this week. He does not report increased drainage though he notes callous formation continues to happen quickly between visits. 11/06/17. Seen by Dr. Howe. The patient does not report increased drainage associated with the chronic bilateral diabetic foot ulcers since the last visit. 11/02/17. Seen by Mitch Cota PA-C. The patient reports no increased drainage from his bilateral diabetic foot ulcers. He is not surprised that his blood sugar is low this morning as he did not eat dinner yesterday or breakfast today, citing mild GI discomfort. 10/30/17. Seen by Dr. Howe. The patient missed a few appointments recently due to our facility power outage however he does not report increased drainage or other acute issues regarding his bilateral first MTPJ plantar foot diabetic ulcers. 10/23/17. Seen by Mitch Cota PA-C. The patient reports that he did not take his insulin, or eat this morning. Drainage from his diabetic foot ulcers has been stable. 10/15/17. Seen by Mitch Cota PA-C. The patient reports high blood sugars this week and stable drainage from his foot ulcers. 10/13/17. Seen by Dr. Howe. The patient does not report increased drainage associated with the bilateral plantar foot diabetic ulcers since his last visit. 10/01/17. Seen by Dr. Howe. The patient does not report increased drainage associated with either left or right plantar foot diabetic ulcers since his last visit. 10/01/17. Seen by Dr. Howe. The patient does not report increased drainage associated with either left or right plantar foot diabetic ulcers since his last visit. 09/28/17. Seen by Dr. Howe. The patient does not report increased drainage associated with either left or right plantar foot diabetic ulcers since his last visit. He has been offloading as recommended as well. 09/24/17. Seen by Dr. oHwe. The patient reports some increased drainage associated with the right chronic diabetic foot ulcer but none with the left chronic diabetic foot ulcer since his last visit. His blood sugars have been well controlled and he does not report pain in either feet or fevers or feeling unwell. He had been seen twice weekly due to the recent deterioration of the right foot ulcer and need for frequent debridement of the periulcer callus. 09/16/17. Seen by Dr. Howe. The patient does not report significant drainage associated with the bilateral plantar foot diabetic ulcers since last visit and his blood sugars are well controlled over the past week. 09/11/17. Seen by Dr. Howe. The patient states that the right foot diabetic ulcer bled significantly earlier this week when he got out of the shower. He had his INR checked yesterday and it was 3.5. He does not report increased drainage otherwise from either the left or right foot diabetic ulcers since his last visit. He's been seen as twice weekly for the past 2 weeks due to the very heavy accumulation of callus associated with the right foot ulcer. 09/08/17. Seen by Dr. Howe. The patient does not report increased drainage associated with bilateral foot diabetic ulcers since his last visit. 09/04/17. Seen by Dr. Howe. The patient does not report significant drainage associated with the bilateral plantar foot diabetic ulcers since last visit and his blood sugars are well controlled over the past week. 08/31/17. Seen by Dr. Howe. The patient does not report increased drainage associated with the bilateral plantar foot diabetic ulcers since his last visit and he continues on doxycycline for the positive right foot ulcer wound culture. His blood sugars have been well- controlled for the past week and he has had no further episodes of hypoglycemia. 08/26/17. Seen by Dr. Howe. The patient is now on doxycycline resistant MSSA positive wound culture taken from his right diabetic foot ulcer and does not report other side effects. He has picked up his new diabetic shoes and is wearing them as recommended. His blood sugar today is 58 in clinic and he has recently had his short-acting insulin increased by his primary care provider due to frequent episodes of hyperglycemia. He is scheduled to see his PCP again tomorrow to discuss the changes. 08/18/17. Seen by Mitch Cota PA-C. The patient reports a foul odor from his bilateral foot ulcers. He reports that he is feeling much better after an ER trip for hypoxia and his recent O2 saturation readings have been 100%. 08/06/17. Seen by Dr. Howe. The patient reports feeling unwell along with progressive shortness of breath while at rest over the past week. He says he had a low- grade fever at home today and staff report is O2 sats in low 90s upon arrival. He has a history of COPD also with possible admission for pneumonia within the past year. He is here for review of chronic diabetic foot ulcers that have been relatively stable for the past few weeks. 07/28/17. Seen by Mitch Cota PA-C. The patient reports increased drainage and bleeding from his diabetic foot ulcers. 07/20/17. Seen by Mitch Cota PA-C. The patient reports no increase in ulcer drainage since his last evaluation. 07/16/17. Seen by Mitch Cota PA-C. The patient has recently been in hospital where he had a NON-STEMI. He reports a reduction in drainage and wound odor after starting Augmentin. 07/01/17. Seen by Dr. Howe. The patient does not report significant drainage associated with the chronic bilateral plantar foot diabetic ulcers since his last visit. He will be picking up his new diabetic shoes today noting his partial right lateral foot amputation and multiple bilateral toe amputations plus Charcot deformity of both feet are contributing significantly to the recurrent heavy callus formation in the apollo-ulcer areas. He also states that he has not been covering his feet when he is in the shower despite our recommendation to do so. 06/19/17. Seen by Dr. Howe. The patient does not report significant drainage associated with the chronic bilateral plantar MTPJ diabetic ulcers since his last visit. Of note , the patient's blood sugar is 42 in clinic and was 35 earlier this morning. He's mildly symptomatic and is with his son who states the patient's food intake has been a bit less than usual due to limited funds at the end of the month. The patient also admits to trying to keep his blood sugars below 140 at all times and has had the problem of hypoglycemia in our clinic a number of times over the past year. 06/12/17. Seen by Dr. Howe. The patient does not report significant drainage associated with the chronic bilateral plantar MTPJ diabetic ulcers since his last visit. 06/05/17. Seen by Dr. Howe. The patient does not report significant drainage associated with the chronic bilateral plantar MTPJ diabetic ulcers since his last visit. He continues on Augmentin based on the recent wound culture and does not report adverse side effects. He also was seen by Dr. Garcia and his new diabetic shoes have been ordered noting his significant history of right lateral foot amputation and multiple toe amputations plus bilateral Charcot deformities. 05/29/17. Seen by Dr. Howe. The patient's wound culture from 2 days ago of a new right foot diabetic ulcer grew Streptococcus as well as Staph. He does not report increased drainage from this ulcer nor the chronic left foot diabetic ulcer. He is also not yet been seen by podiatry although we did send the referral over a couple weeks ago. His blood sugars continue to be well controlled and of note he has had extensive amputations of both the lateral aspect of the right foot as well as toes on both feet which has contributed significantly to recurrent callus and diabetic ulcer formation. 05/27/17. Seen by Mitch Cota PA-C. The patient reports a new ulcer to his right great toe that he believes has been continuously present for about a week. He denies any trauma to the area though states he may have been walking more lately. He is insensate and notes no pain, though he has seen purulent drainage in the area and notes a foul odor. 05/12/17. Seen by Dr. Howe. The patient does not report significant drainage associated with the chronic left plantar foot diabetic ulcer and he notes that heavy callus again has formed on the right plantar foot surface at the site of his recently healed diabetic ulcer. He has severe bilateral Charcot deformities along with multiple toe amputations that are contributing significantly to health information and the refractory and recurrent nature of his diabetic foot ulcers. He's also asked for us to address his toe nails today as it's been weeks since they've been trimmed. 05/05/17. Seen by Dr. Howe. The patient presents today with low blood sugars in the 40's and states he is feeling unwell in the waiting room. Upon my review he is lucid and eating and his blood sugars have increased into the 50s. He does not report any new problems regarding his chronic left foot diabetic ulcer and states that he has not discussed his hypoglycemia with his primary care provider yet despite having a number of episodes throughout the month. 04/28/17. Seen by Dr. Howe. The patient reports recurrence of his left plantar foot diabetic ulcer over the past week along with some new drainage that's quite malodorous. He does not report pain in the foot nor fevers nor any acute issues regarding his right lateral foot diabetic ulcer. He states his blood sugars continue to be well controlled with most below 120. 04/21/17. Seen by Dr. Hoew. The patient does not report pain or drainage associated with the chronic right foot diabetic ulcers since his last visit. 04/14/17. Seen by Dr. Howe. The patient does not report pain or drainage associated with the chronic right foot diabetic ulcers since his last visit. His work diabetic shoe as recommended noting he is a partial right foot and right second toe amputations along with a significant Charcot deformity. 04/07/17. Seen by Dr. Hoew. The patient does not report significant drainage or pain associated with the chronic right lower leg diabetic ulcers since his last visit. He snoring softly and she was recommended and reports his blood sugars have been well controlled. Of note, his significant deformity of the right foot including partial lateral amputation as well as second toe amputation and a significant Charcot deformity. 04/02/17. Seen by Dr. Howe. The patient reports that a coin accidentally fell into his right lower leg total contact cast a couple days ago. The staff found a johnson upon removing the cast as well as a new ulcer over the lateral aspect of the right foot. The patient does not report pain at the site nor does staff report significant drainage associated with new ulcer nor the chronic right plantar foot diabetic ulcer. The patient's blood sugars continue to be well controlled and he has no other acute complaints at this time. 03/28/17. Seen by Mitch Cota PA-C. The patient's recent wound culture demonstrated no growth. He has not noted increased drainage since his last evaluation. 03/23/17. Seen by Mitch Cota PA-C. The patient reports no increase in right foot ulcer drainage since his last evaluation. In addition his wound culture demonstrated no growth. 03/17/17. Seen by Dr. Howe. The patient does not report increased drainage associated with the chronic right first MTPJ diabetic ulcer.He completed his course of antibiotics that was treating the recent positive wound culture and does not report adverse side effects. He continues offload with a surgical shoe as well. 03/09/17. Seen by Dr. Howe. The patient does not report pain or significant drainage associated with the recurrent right foot diabetic ulcer. His culture of the ulcer was positive for a staph organism and Acinetobacter however he's not yet been started on antibiotics. He states his blood sugars continue to be well-controlled with most below 150. 03/02/17. Seen by Mitch Cota PA-C. The patient reports no improvement in drainage from his diabetic ulcer of the right foot. He has noted odor at times coming from the ulcer. 02/23/17. Seen by Mitch Cota PA-C. The patient reports no increase in drainage from his diabetic ulcer of the right foot. 02/09/17. Seen by Mitch Cota PA-C. The patient reports that he has just begun taking Bactrim for his infection of his right foot diabetic ulcer. He reports continued purulent drainage and odor. 02/02/17. Seen by Mitch Cota PA-C. The patient returns to our clinic with a new ulcer of his right first metatarsal head. He reportedly smacked his foot hard on the floor, creating this ulcer, in an attempt to stop an episode of neuropathy. 11/10/16. Seen by Mitch Cota PA-C. The patient returns for evaluation of his recently healed ulcer, fearing that it is open again. He has not seen liquid drainage but fears it is draining under the callous. 11/04/16. Seen by Mitch Cota PA-C. The patient does not report any difficulties with his TCC this week. 10/24/16. Seen by Dr. Howe. The patient does not report any problems regarding his TCC and staff do not repot significant drainage on the dressing overlying the left plantar foot diabetic ulcer. His blood sugars remain well controlled with most below 150. 10/20/16 Seen by Mtich Cota PA-C. The patient is here for placement of a TCC to offload his left plantar foot diabetic ulcer. He notes that the drainage from his ulcer has soaked through the TCC under-layers and almost soaked through the cast. 10/15/16. Seen by Dr. Howe. The patient tolerated his TCC with minimal discomfort noting mild pain in the left 1st toe. The staff do not report significant drainage associated with the chronic left plantar foot diabetic ulcer and he states his blood sugars are mostly below 150. He's now been placed in a TCC to optimize offloading needed to accommodate for the left foot Charcot deformity that's lead to recurrent heavy callus formation in the periulcer area. 10/13/16 Seen by Mitch Cota PA-C. The patient reports no increase in drainage from his left foot diabetic non-pressure ulcer since his last evaluation. 09/29/15 Seen by Mitch Cota PA-C. The patient reports no increase in drainage from his chronic left foot diabetic ulcer. He does voice frustration that his wound is taking so long to heal. 09/19/16. Seen by Dr. Howe. The patient does not report increased drainage or other acute issues regarding his chronic left plantar foot diabetic ulcer since his last visit. 09/12/16. Seen by Dr. Howe. The patient does not report significant drainage associated with the chronic left plantar foot diabetic ulcer over the past week. He's applying Kerasal to the periwound callus as recommended and has limited his walking considerably, in addition to wearing an offloading shoe, to minimize callus formation. His blood sugars also remain well controlled with most below 150 and he continues on Bactrim for an infection of the ulcer without reporting adverse side effects. 09/05/16. Seen by Dr. Howe. The patient returns to clinic with recurrent of his left plantar foot diabetic ulcer that he states reopened about 2 weeks ago. He was placed on Keflex by his PCP yesterday due to the appearance of the ulcer and significant drainage. He states his blood sugars are well controlled and he limits his walking to help facilitate offloading. 07/28/16. Seen by Dr. Howe. The patient does not report significant drainage associated with the chronic left plantar foot diabetic ulcer over the past week. He's applying Kerasal to the periwound callus as recommended and states his blood sugars are consistently below 150. He does report ongoing nausea for the past few weeks and states he's on 3 nausea medications but does not know what's causing it. He's working with his PCP on this problem. 07/15/16 Seen by Mitch Cota PA-C. The patient reports no fever chills or pain from his left foot diabetic ulcer since his last evaluation. 07/10/16. Seen by Dr. Howe. The patient does not report significant drainage associated with the chronic left plantar foot diabetic ulcer over the past week. He's applying Kerasal to the periwound callus as recommended and has limited his walking considerably, in addition to wearing an offloading shoe, to minimize callus formation. 07/08/16 Seen by Mitch Cota PA-C. The patient reports no increase in pain or drainage from his ulcer, though he does report nausea and vomiting. After further review, it appears that his PPI prescription has run out and he stopped it abruptly. He has not had associated fever, chills or lower GI symptoms. His blood sugars have reportedly been above 150 this week. The patient reports that he still has problems with callous formation on his feet and will be seeing podiatry. 07/04/16. Seen by Dr. Howe. The patient does not report significant drainage associated with the chronic left plantar foot diabetic ulcer since his last visit. He does report significant nausea and vomiting over the past week however but does not report fever, cough, or other specific symptoms and feels the nausea has started to improve as of yesterday. He states his blood sugars have been well controlled with most below 150 and he's on Augmentin for the recent MSSA and Strep positive wound culture. He's also been applying Kerasal to the periwound callus as recommended and has been limited in his walking the past week due to illness. 06/23/16 Seeb by Mitch Cota PA-C. The patient reports that he believes he has an infection in his foot because his dog has been sniffing and licking his open ulcer. He believes his dog has a nose for infection. He reports a continuous, strong, foul odor from his left plantar foot ulcer for the past 3 days with an associated increase in drainage. In addition he has not been offloading his foot as instructed and is going barefoot at home. 06/16/16 Seen by Mitch Cota PA-C. The patient reports that he is walking barefoot in the house and only wears shoes outside the house. His left foot diabetic ulcer drainage has been stable. 06/02/16 Seen by Mitch Cota PA-C. The patient reports that he is due to have a new orthotic fitted for his deformed left foot to further offload his chronic left foot ulcer. He reports stable drainage from this ulcer. 05/27/16 Seen by Mitch Cota PA-C. The patient reports that he now has a new wound near his chronic left plantar foot diabetic ulcer. The new wound began spontaneously and was noted today. His chronic ulcer has had stable drainage. 05/19/16. Seen by Dr. Howe. The patient does not report significant drainage associated with the chronic left plant foot diabetic ulcer over the past week and he states his blood sugars are well controlled with most below 150. 05/12/16. Seen by Dr. Howe. The patient reports some new pain along the right foot surgical scar but no swelling or drainage from the site. He does not recall injuring the foot and feels he may have been more active over the past week. He does not report significant or drainage associated with the left plantar foot diabetic ulcer and states he's not been able to check his blood sugars due to the fact he ran out of glucometer strips this past week. His blood sugar today is 280. 04/11/16. Seen by Dr. Howe. The patient does not report pain or drainage associated with the chronic right lateral foot diabetic ulcer of the past week. He states his blood sugars are consistently below 150 and he is wearing his offloading shoe is recommended. 04/04/16. Seen by Dr. Howe. 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 He states his blood sugars are mostly below 150 and he's offloading using a surgical offloading shoe. He's now off of antibiotics and is here today with his granddaughter who's assisting with his care. 03/31/16 Seen by Mitch Cota PA-C. The patient has returned from [facility] where he had a 4th ray amputation performed to his right foot. He reports that he was supposed to have follow up appointments with surgery, cardiology and wound care but has not attended any of these appointments due to transportation difficulties. He is unsure of when his sutures are supposed to be removed. 02/28/16 Seen by Mitch Cota PA-C. The patient was seen at [place] [facility] and evaluated by Dr. Monae on an urgent basis as arranged by Dr. Howe at his last visit. The patient reports that Dr. Monae wanted to urgently take him to surgery but the patient would prefer to have Dr. Garcia do it and refused admission to the hospital. 02/21/[address] Howe. The patient does not report pain or significant drainage associated with the Alonzo grade 3 right lateral foot diabetic ulcer and he saw Dr. Garcia , podiatry, this morning who reportedly states she's not able to perform any additional debridement until his right leg vascular status is further evaluated. He had an arterial Doppler scheduled yesterday however both the patient and his son state they were unaware of the appointment. He started taking his Augmentin, which is treating the MSSA and Strep viridans culture from 02/15/16, following the last visit as recommended, states his blood sugars have been consistently below 150 over the past week, and he's offloading by wearing a surgical shoe and significantly limiting his walking. Of note, he's still on supplemental oxygen following his recent hospital discharge and gets short of breath on minimal exertion. Please see my note below from his last visit regarding details of the admission and amputation. 02/15/[address] Howe. The patient does not report pain associated with the right lateral foot diabetic ulcer. He was discharged 4 days ago following a partial ray amputation of the 5th toe and MT due a progressive foot infection that he states occurred over about 2 days prior to being admitted to the hospital. His wound culture on arrival to the ER was polymicrobial and reported on Group C Strep. He was treated with IV Zosyn during the admission and prescribed Augmentin on discharge however he's not yet picked up the prescription. His blood sugars have been relatively well controlled with most below 150 since discharge. Of note, he also had a non-ST elevation VA post-operatively, acute on chronic renal failure with a Cr of 1.8 on discharge, and acute respiratory failure and continues on supplemental oxygen. 12/27/[address] Howe. The patient does not report drainage or pain associated with the chronic right plantar foot diabetic ulcer over the past week. He's not been applying Kerasal to the associated callus as recommended however he does not have diabetic shoes and a new AFO that he's been wearing. His blood sugars also remain relatively well controlled below 150 consistently. 12/06/[address] Howe. The patient does not report pain or significant drainage from the chronic right plantar foot diabetic ulcer. His blood sugars remain well controlled around 120 and he's now wearing his new diabetic shoes and offloading by limiting his walking significantly. He's also applying Kerasal daily to the right foot calluses as recommended. 11/29/[address] Howe. The patient does not report significant drainage from the chronic right plantar foot diabetic ulcer and he states his blood sugars remain well controlled below 150. He's also wearing his diabetic shoes now and limiting his walking to facilitate offloading. 11/23/[address] Howe. The patient reports moderate drainage but no pain associated with the chronic right plantar foot diabetic ulcer. He continues on doxycycline for a polymicrobial positive wound culture and he states his blood sugars remain well controlled with most below 120. 11/15/[address] Howe. The patient's wound culture from the last visit grew Enterobacter, Staph, and group G Strep however he's not yet picked up his prescription for doxycycline. He has at least moderate serosanquinous drainage on the dressing and states he's been a bit more active this past week as his son has been sick and unable to do the shopping. His blood sugar was also elevated yesterday near 200 but has been relatively well controlled prior to that. 11/08/15 Seen by Mitch Cota PA-C. The patient reports that his son is sick and he has been up on his feet taking care of him and has been unable to stay off of his feet. He has noted more drainage from his right plantar foot diabetic ulcer in the past few days. He also reports that his current shoes with inserts are making a large callous on his right heel and he doesn't feel that they offload his ulcer, so he has been trying to walk on the lateral edge of his right foot to offload his ulcer, and now is having lateral right foot pain as a result. 11/01/[address] Howe. The patient admits to being more active over the past two weeks but states there's only been very minimal drainage from the right plantar foot diabetic ulcer. His blood sugars also remain well controlled below 150 consistently. 10/18/[address] Howe. The patient does not report drainage from the right foot plantar diabetic ulcer however he states he has been more active the past week in terms of walking. His blood sugars also remain well controlled below 150. 10/11/[address] Howe. The patient does not report pain or drainage associated with the right plantar foot nor heel diabetic ulcers. 10/04/[address] Howe. The patient does not report drainage from the right plantar foot diabetic ulcer and he continues to use Kerasal daily for the significant right heel callus. His blood sugars are also well controlled below 120 consistently. 09/27/[address] Howe. The patient reports only minimal drainage from the right plantar foot diabetic ulcer and states his blood sugars continue to improve with most between 120 and 180. He's also applying Kerasal to the bilateral foot calluses daily as we've requested. 09/19/[address] Howe. The patient reports significantly decreased drainage from the right plantar foot diabetic ulcer and he'll complete his course of levofloxacin today that treating the polymicrobial wound culture from 09/04/15. His blood sugars are also much better controlled over the past week with most around 150 and very few over 200. 09/12/[address] Howe. The patient continues to report significant drainage from the right plantar diabetic foot ulcer and his wound culture from 09/04/15 grew Strep , Providencia, and Neisseria species. He's now on levofloxacin and does not report adverse effects. He's also no longer experiencing severe hypoglycemic episodes and is working closely with is PCP on adjusting his insulin regimen. His blood sugars due tend to remain over 200 however. 09/07/[address] Howe. The patient continues to report blood sugars as low as the 40's since our visit last week. Regarding his foot ulcers, he reports continued foul smelling drainage from the right foot diabetic ulcer but none from right heel or left foot diabetic ulcer. His blood sugars also may be as high as 300 and he states he's compliant with his diabetes medication regimen and will require as much as 30-40 units of short acting insulin on occasion. He does not report pain in the feet nor fevers or other systemic symptoms. 08/31/[address] Howe. The patient is new to our clinic. On arrival he was not feeling well and was tremulous. The MA checked his blood sugar and is registered 34 which is the lowest the glucometer would read. I spoke with him and he reported feeling very unwell at which time he was urgently transferred to the ER. Of note, he was in the clinic to review bilateral diabetic foot ulcers. He'd also recently lost a son and has been very upset the past week according to staff. Past Medical History This information was obtained from the patient Patient has a medical history of: Chronic Obstructive Pulmonary Disease (COPD) Type II Diabetes (A1c 7.4 on 11/12/2015) PAD Peripheral neuropathy Hypoglycemia CVA Diabetic foot ulcer (Right plantar 1st MTPJ, Alonzo grade II) Coronary Artery Disease (CAD) (s/p VA during admission on 02/04/2016) Lumbar strain CHF Hyperlipidemia CKD stage 3 Gout Diabetic foot ulcer - 02/04/2016 (right lateral foot s/p partial ray amputation; Alonzo grade 3; MSSA and Strep viridans cultured) Complaints and Symptoms This information was obtained from the patient Patient complains of: General Notes: I have reviewed and concur with the Review of Systems and Past Family Social History documents completed by the clinician, I have reviewed and concur with the Wound Assessment document completed by the clinician Cardiovascular (Central): Dyspnea on Exertion Ear/Nose/Mouth/Throat: Hearing Loss / Aid Integumentary (Hair/Skin/Nails): Open Sore Musculoskeletal: Assistive Devices, Deformities Neurological: Loss of Protective Sensation Prior Wound History: Drainage, Erythema, Malodor Patient denies complaints or symptoms related to: Cardiovascular (Central/Peripheral): Intermittent Claudication, Lower extremity (leg) resting pain Constitutional Symptoms (General Health): Chills, Fever Gastrointestinal (GI): Nausea / Vomiting, Stomach/abdominal pain Hematologic/Lymphatic: Bleeding / Clotting Disorders, Bleeding Tendency Musculoskeletal: Muscle Weakness Prior Wound History: Bleeding, Pain Psychiatric: Anxiety, Memory Loss Respiratory: Oxygen Use, Shortness of Breath OBJECTIVE Constitutional Vital signs reviewed and noted. Well developed. Alert. Clean appearing.. Height/ Length: 72 in (182.88 cm), Weight: 227.7 lbs (103.5 kgs), BMI: 30.9, Temperature: 97.8 ?F ( 36.56 ?C), Pulse: 64 bpm, Respiratory Rate: 18 breaths/min, Blood Pressure: 136/63 mmHg, Capillary Blood Glucose: 208 mg/dl, Pulse Oximetry: 98 %. Vital Signs Notes: Glucose per patient. Ears, Nose, Mouth, and Throat: Mild hearing deficit. Respiratory: No respiratory distress. Even respirations and without use of accessory muscles.. Cardiovascular: Affected extremity exhibits no peripheral edema or cyanosis, is warm, and is well perfused. Capillary refill is less than 2 seconds. Musculoskeletal: Right lateral foot partial amputation. Integumentary (Hair, Skin) No periwound erythema, warmth, or significant drainage. No periwound rashes appreciated or noted otherwise.. Refer to appropriate clinician wound documentation for this visit; right and left foot ulcers extend to subcut with bases partially covered with pink granulation, remainder fibrin and slough, right foot ulcer cracked and bleeding. Significant amount of callus and maceration in the periulcer areas. Wound #11 Left Metatarsal head first is a chronic Alonzo Grade 2 Diabetic Ulcer and has received a status of Not Healed. Subsequent wound encounter measurements are 1.5cm length x 1cm width x 0.4cm depth, with an area of 1.5 sq cm and a volume of 0.6 cubic cm. No tunneling has been noted. No sinus tract has been noted. No undermining has been noted. There is a large amount of sero-sanguineous drainage noted which has no odor. The patient reports no wound pain due to the wound being insensate. The wound margin is callus. Wound bed has No epithelialization, No eschar, No slough, Yes bright red, pink, spongy granulation. The periwound skin color is normal. The periwound skin exhibited: Callus, Moist. The periwound skin did not exhibit: Brawny Induration, Edema, Excoriation, Induration, Crepitus, Fluctuance, Friable, Rash, Dry/Scaly, Maceration. The temperature of the periwound skin is WNL. Periwound skin does not exhibit signs or symptoms of infection. Local Pulse is Palpable. Wound #12 Right, Plantar Metatarsal head first is a Alonzo Grade 2 Diabetic Ulcer and has received a status of Not Healed. Subsequent wound encounter measurements are 2cm length x 1cm width x 0.3cm depth, with an area of 2 sq cm and a volume of 0.6 cubic cm. No tunneling has been noted. No sinus tract has been noted. No undermining has been noted. There is a copious amount of sanguineous drainage noted which has no odor. The patient reports no wound pain due to the wound being insensate. The wound margin is callus. Wound bed has No epithelialization, No eschar, No slough, Yes pink, firm granulation. The periwound skin color is normal. The periwound skin exhibited: Callus, Moist. The periwound skin did not exhibit: Brawny Induration, Edema, Excoriation, Induration, Crepitus, Fluctuance, Friable, Rash, Dry/Scaly, Maceration. The temperature of the periwound skin is WNL. Periwound skin does not exhibit signs or symptoms of infection. Local Pulse is Normal. Neurological: Cranial nerves grossly intact with symmetric function normal by informal observation.. 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 A skin/ subcutaneous tissue level surgical debridement with a total area debrided of 1.5 sq cm was performed by Nando Howe MD. Subcutaneous was removed along with devitalized tissue: callus and slough. The following instrument(s) were used: curette. Pain control was achieved using 4% Lido. A time out was conducted prior to the start of the procedure. A moderate amount of bleeding was controlled with silver nitrate. The procedure was tolerated well with a pain level of 0 throughout and a pain level of 0 following the procedure. Post Debridement Measurements: 1.5cm length x 1cm width x 0.5cm depth; with an area of 1.5 sq cm and a volume of 0.75 cubic cm; Wound #12 Wound #12 (Diabetic Ulcer) is located on the right, plantar metatarsal head first. A skin/subcutaneous tissue level surgical debridement with a total area debrided of 2 sq cm was performed by Nando Howe MD. Subcutaneous was removed along with devitalized tissue: callus and slough. The following instrument(s) were used: curette. Pain control was achieved using 4% Lido. A time out was conducted prior to the start of the procedure. A minimal amount of bleeding was controlled with pressure. The procedure was tolerated well with a pain level of 0 throughout and a pain level of 0 following the procedure. Post Debridement Measurements: 2cm length x 1cm width x 0.4cm depth; with an area of 2 sq cm and a volume of 0.8 cubic cm; PLAN Wound Orders: Wound #11 Left Metatarsal head first Anesthetic Topical Xylocaine to wound bed. - In clinic only. Cleanser Cleanse Wound: - Normal saline and gauze, may use distilled water at home. May Shower. - Keep covered in shower with cast protector or plastic bag. Topical Treatments Antibiotic/Antimicrobial Ointment/Cream. - Iodosorb to wound bed. Dressings Cover and secure with: - Foam and hypafix tape. Change Dressing: - Daily. Wound #12 Right, Plantar Metatarsal head first Anesthetic Topical Xylocaine to wound bed. - In clinic only. Cleanser Cleanse Wound: - Normal saline and gauze, may use distilled water at home. May Shower. - Keep covered in shower with cast protector or plastic bag. Topical Treatments Antibiotic/Antimicrobial Ointment/Cream. - Iodosorb to wound bed. Dressings Cover and secure with: - Randolph padding and Foam and hypafix tape. Change Dressing: - Daily. Additional Orders: Off-Loading Keep weight off: - Both feet as much as possible. Follow-Up Appointments Return Appointment: - - Mondays and . Other information: If you develop fever, chills, increased pain, drainage, redness or swelling please call our office. If after hours, respond to the ER. Should you experience any significant changes in your wound(s) or have any questions regarding your home care instructions please contact the wound center @ [phone]. If after hours, contact your primary care physician or go to the hospital emergency room. - Please see Yuliana for insoles in your bill moore's slough boot and tennis shoes. Scribing Attestation I attest, as the nurse, that I scribed these orders for the physician. I've reviewed the clinician's documentation and agree with the evaluation and plan as written. In addition the patient's ulcers demonstrate evidence of non-viable devitalized tissue and they will continue to benefit from sharp debridement to help promote granulation and expedite healing. Also, we've added an extra layer of mole skin padding to help better offload the right foot ulcer which has deteriorated since his last visit. I've also reinforced the need to aggressively offload this foot noting the partial lateral amputation complicates healing and promotes heavy callus formation. Electronic Signature(s) Signed By: Date: Nando Howe MD 03/23/2018 09:04:29 Entered By: Nando Howe on 03/22/2018 12:04:40
== END ==
PROVIDERS: Family Provider Physician Assistant Medical; PCP Physician Assistant Medical; Visit Provider Internal Medicine
DX: E11.621 Type 2 diabetes mellitus with foot ulcer (principal); L97.522 Non-pressure chronic ulcer of other part of left foot with fat layer exposed; L97.512 Non-pressure chronic ulcer of other part of right foot with fat layer exposed; M21.6X1 Other acquired deformities of right foot; L84 Corns and callosities
CPT/HCPCS: 11042

== ENCOUNTER → 2018-03-30 09:03 | Outpatient (CLI) | payer MEDICARE, SELFPAY ==
--- NOTE | 2018-03-30 | OV.WND_ITS ---
Progress Note Details Patient Name: Nick Drake Patient Number: [id number] PatientPatientDate: 03/30/2018 Clinician: Deanna Floyd Physician / Chemist Assistant: Nando Howe SUBJECTIVE Chief Complaint This information was obtained from the patient Diabetic ulcers to right and left foot. Allergies Minipress (Severity: Severe, Reaction: violent behavior), Vicodin (Severity: Mild, Reaction: itching), nortriptyline (Severity: Moderate), Avandia (Severity: Moderate) HPI This information was obtained from the patient 03/30/18. Seen by Dr. Howe. The patient missed his last two appointments and states over the 24 of March he was wearing socks on his deck and noticed bleeding from the bilateral diabetic foot ulcers. His blood sugars are over 400 today and he's run our of insulin and glucose strips. He does not report pain associated with the ulcers and notes he's not wearing his WASHOE boot on the right foot at all times as recommended. He has a right partial foot amputation and Charcot deformity of both feet. 03/22/18. Seen by Dr. Howe. The patient continues to wear his WASHOE boot to offload the right foot 1st MTPJ diabetic ulcer and address the significant deformity associated with the partial lateral foot amputation and he does not report increased drainage associated with this ulcer nor the left plantar foot diabetic ulcer since his last. 03/15/18. Seen by Mitch Cota PA-C. The patient reports that he is compliant with his WASHOE boot but notes increased bleeding and drainage seen in the boot. 03/11/18. Seen by Mitch Cota PA-C. The patient reports stable drainage from his diabetic foot ulcers. His blood sugars continue to be above 150 this week. 03/04/18. Seen by Dr. Howe. The patient continues to wear his WASHOE boot to offload the right foot 1st MTPJ diabetic ulcer and address the significant deformity associated with the partial lateral foot amputation and he does not report increased drainage associated with this ulcer nor the left plantar foot diabetic ulcer since his last. He recently completed a course of doxycycline to treat a group G Strep positive culture and is applying iodosorb to the ulcers to help manage the persistent drainage. 03/01/18. Seen by Dr. Howe. The patient continues to wear his WASHOE boot to offload the right foot 1st MTPJ diabetic ulcer and address the significant deformity associated with the partial lateral foot amputation. He does not report significant drainage associated with this ulcer nor the left plantar foot diabetic ulcer since his last. 02/25/18. Seen by Dr. Howe. The patient will complete his course of doxycycline today that's treating the Staph and group G Strep positive culture taken from the right foot diabetic ulcer. He does not report adverse side effects and nor significant drainage from the ulcer or the left plantar foot diabetic ulcer. 02/22/18. Seen by Dr. Howe. The patient is now on doxycycline for the Staph and group G Strep positive culture taken from the right foot diabetic ulcer last week. He notes some bloody drainage from this site on his dressing today but feels this ulcer and the left foot diabetic ulcer have improved over the past few week. He's offloading the right foot which has a partial lateral amputation using his WASHOE boot as recommended however he's not using a frame walker. He does not report adverse side effects of the antibiotics nor other acute issues today. 02/18/18. Seen by Dr. Howe. The staff report increased drainage associated with both plantar foot 1st MTPJ diabetic ulcers and the patient reports a malodor from the dressings over the past week. He does not report fevers, feeling unwell, or pain in the feet but states his blood sugars have been a bit elevated in the 180s. He's also wearing his WASHOE boot as recommended on the right foot but states he does not have enough room in his house to use a knee scooter and does not use his frame walker. 02/11/18. Seen by Dr. Howe. The patient continues to wear his WASHOE boot to offload the right foot 1st MTPJ diabetic ulcer and address the significant deformity associated with the partial lateral foot amputation. He does not report significant drainage associated with this ulcer nor the left plantar foot diabetic ulcer since his last visit however the nurse states the mole skin dressing was applied inappropriately over the left foot ulcer and was overlying the ulcer itself and soaked with drainage. 02/04/18. Seen by Dr. Howe. The patient continues to wear his WASHOE boot to offload the right foot 1st MTPJ diabetic ulcer and address the significant deformity associated with the partial lateral foot amputation. He does not report significant drainage associated with this ulcer nor the left plantar foot diabetic ulcer since his last visit. 01/28/2018. Seen by Dr. Howe. The patient is now wearing his WASHOE boot to offload the right foot 1st MTPJ diabetic ulcer and address the significant deformity associated with the partial lateral foot amputation. He does not report significant drainage associated with this ulcer nor the left plantar foot diabetic ulcer since his last visit. 01/26/18. Seen by Dr. Howe. The patient states he has been without his insulin for over a week which is likely the cause of his blood sugars being around 400 over the past few visits. He has also not contacted his orthotics provider regarding the offloading WASHOE boot to wear on the right foot noting his significant deformity caused by the partial lateral foot amputation. He has not report increased drainage or other acute changes regarding his bilateral diabetic foot ulcers and will complete his course of doxycycline its treated the recent MSSA positive culture tomorrow. He also reports nausea and one episode of emesis earlier today but not other acute issues. 01/21/2018. Seen by Dr. Howe. The patient arrived today with his right foot dressing upside down. His blood sugars are also over 400. The patient does not report increased drainage associated with the right or left diabetic foot ulcers however states his neuropathic pain has been significant over the past 2 days. He also is going to pick up attendant his WASHOE boot today to help facilitate offloading of the right foot diabetic ulcer noted in he also has a partial lateral amputation on his foot that is contributed significantly 2. Ulcer callus formation. He also continues on doxycycline for he recent MSSA positive wound culture. 01/18/2018. Seen by Dr. Howe. The patient's wound culture from the left foot diabetic ulcer grew MSSA resistant to gentamicin. He is not currently on oral antibiotics and does not report increased drainage from either left right foot diabetic ulcers and is still waiting for his WASHOE boot to be available to help facilitate better offloading of the right foot noting his partial lateral right foot amputation and severe Charcot deformity. 01/14/18. Seen by Dr. Howe. The patient continues to report moderate drainage from the right and left diabetic foot ulcers over the past few days and he's seen his promotions producer who's ordered a WASHOE boot for the right foot which should be available next week. He has severe bilateral Charcot deformities and partial right lateral foot amputation that contributes to the refractory nature of the ulcers and very heavy callus formation. 01/12/18. Seen by Dr. Howe. The patient reports moderate drainage from the right and left diabetic foot ulcers and he's seen his promotions producer who's ordered a WASHOE boot for the right foot. He has bilateral partial lateral foot amputations which have resulted in refractory calluses of the bilateral plantar MTPJ's and associated DFU's. His blood have been well controlled and his recent hypoglycemic episodes have resolved. 01/07/18. Seen by Dr. Howe. The patient missed his last 2 appointments due to a GI illness last week and she reports some pain in the lateral aspect of the right forefoot but no increased drainage, swelling, or other acute changes of the diabetic foot ulcer. He also does not report any acute issues regarding the left diabetic foot ulcer. Of note, he has significant deformities of both feet due to partial amputations which have each contributed significantly to severe callus formation and the refractory nature of the ulcers. 01/01/18. Seen by Dr. Howe. The patient continues on clindamycin for the chronic right diabetic foot ulcer infection and it is not reported adverse side effects. He also does not report significant drainage associated with either left or right diabetic foot ulcer since his last visit. 12/28/17. Seen by Dr. Howe. The patient does not report increased drainage associated with either right or left foot diabetic ulcers since his last visit. He continues on clindamycin without reporting adverse side effects to treat the chronic right ulcer infection and his blood sugars are well controlled. Of note, he has been attending clinic twice weekly to optimize management of his recurrent and severe apollo-ulcer calluses that are in part due to his severe Charcot deformities and bilateral partial foot amputations. 12/21/17. Seen by Dr. Howe. The patient reports some drainage associated with the right foot diabetic ulcer since his last visit but none associated with the left foot diabetic ulcer. He completed his course of doxycycline today is treating the recent MSSA positive wound culture and is reported adverse side effects, fevers, feeling unwell. He states his blood sugars continue to be well controlled below 180. 12/15/17. Cinthia Howe. The patient's wound culture from the left plantar foot diabetic ulcer his last visit grew MSSA resistant to gentamicin. He does not report increased drainage or pain from either diabetic foot ulcers since his last visit. 12/10/17. Seen by REN Olea. The patient does not report increased drainage from his bilateral diabetic foot ulcers but does report continued odor. Notes a large amount of callous growth. Wound culture from last week showed MSSA and Diphtheroids. He has been applying topical gentamicin. 12/03/17. Seen by Mitch Cota PA-C. The patient reports increased drainage and odor from his bilateral diabetic foot ulcers. He continues to have elevated blood sugars. 11/26/17. Seen by Mitch Cota PA-C. The patient reports that he has decreased his usage of marijuana which he uses for recreation and to treat his neuropathy. He has not had a ground level fall since decreasing his usage. His blood sugars remain >150 and his ulcers' drainage is stable. 11/20/17. Seen by Mitch Cota PA-C. The patient reports no increase in his ulcer drainage from his bilateral lower extremity diabetic ulcers. He has not scheduled an appointment to see his PCP to address his consistently high blood sugars. 11/13/17. Seen by Mitch Cota PA-C. The patient reports stable drainage from his diabetic foot ulcers and continued difficulty keeping his blood sugars below 150. He also reports not wearing his diabetic shoes when at home. 11/09/17. Seen by Mitch Cota PA-C. The patient reports high blood sugars again this week. He does not report increased drainage though he notes callous formation continues to happen quickly between visits. 11/06/17. Seen by Dr. Howe. The patient does not report increased drainage associated with the chronic bilateral diabetic foot ulcers since the last visit. 11/02/17. Seen by Mitch Cota PA-C. The patient reports no increased drainage from his bilateral diabetic foot ulcers. He is not surprised that his blood sugar is low this morning as he did not eat dinner yesterday or breakfast today, citing mild GI discomfort. 10/30/17. Seen by Dr. Howe. The patient missed a few appointments recently due to our facility power outage however he does not report increased drainage or other acute issues regarding his bilateral first MTPJ plantar foot diabetic ulcers. 10/23/17. Seen by Mitch Cota PA-C. The patient reports that he did not take his insulin, or eat this morning. Drainage from his diabetic foot ulcers has been stable. 10/15/17. Seen by Mitch Cota PA-C. The patient reports high blood sugars this week and stable drainage from his foot ulcers. 10/13/17. Seen by Dr. Howe. The patient does not report increased drainage associated with the bilateral plantar foot diabetic ulcers since his last visit. 10/01/17. Seen by Dr. Howe. The patient does not report increased drainage associated with either left or right plantar foot diabetic ulcers since his last visit. 10/01/17. Seen by Dr. Howe. The patient does not report increased drainage associated with either left or right plantar foot diabetic ulcers since his last visit. 09/28/17. Seen by Dr. Howe. The patient does not report increased drainage associated with either left or right plantar foot diabetic ulcers since his last visit. He has been offloading as recommended as well. 09/24/17. Seen by Dr. Howe. The patient reports some increased drainage associated with the right chronic diabetic foot ulcer but none with the left chronic diabetic foot ulcer since his last visit. His blood sugars have been well controlled and he does not report pain in either feet or fevers or feeling unwell. He had been seen twice weekly due to the recent deterioration of the right foot ulcer and need for frequent debridement of the periulcer callus. 09/16/17. Seen by Dr. Howe. The patient does not report significant drainage associated with the bilateral plantar foot diabetic ulcers since last visit and his blood sugars are well controlled over the past week. 09/11/17. Seen by Dr. Howe. The patient states that the right foot diabetic ulcer bled significantly earlier this week when he got out of the shower. He had his INR checked yesterday and it was 3.5. He does not report increased drainage otherwise from either the left or right foot diabetic ulcers since his last visit. He's been seen as twice weekly for the past 2 weeks due to the very heavy accumulation of callus associated with the right foot ulcer. 09/08/17. Seen by Dr. Howe. The patient does not report increased drainage associated with bilateral foot diabetic ulcers since his last visit. 09/04/17. Seen by Dr. Howe. The patient does not report significant drainage associated with the bilateral plantar foot diabetic ulcers since last visit and his blood sugars are well controlled over the past week. 08/31/17. Seen by Dr. Howe. The patient does not report increased drainage associated with the bilateral plantar foot diabetic ulcers since his last visit and he continues on doxycycline for the positive right foot ulcer wound culture. His blood sugars have been well- controlled for the past week and he has had no further episodes of hypoglycemia. 08/26/17. Seen by Dr. Howe. The patient is now on doxycycline resistant MSSA positive wound culture taken from his right diabetic foot ulcer and does not report other side effects. He has picked up his new diabetic shoes and is wearing them as recommended. His blood sugar today is 58 in clinic and he has recently had his short-acting insulin increased by his primary care provider due to frequent episodes of hyperglycemia. He is scheduled to see his PCP again tomorrow to discuss the changes. 08/18/17. Seen by Mitch Cota PA-C. The patient reports a foul odor from his bilateral foot ulcers. He reports that he is feeling much better after an ER trip for hypoxia and his recent O2 saturation readings have been 100%. 08/06/17. Seen by Dr. Howe. The patient reports feeling unwell along with progressive shortness of breath while at rest over the past week. He says he had a low- grade fever at home today and staff report is O2 sats in low 90s upon arrival. He has a history of COPD also with possible admission for pneumonia within the past year. He is here for review of chronic diabetic foot ulcers that have been relatively stable for the past few weeks. 07/28/17. Seen by Mitch Cota PA-C. The patient reports increased drainage and bleeding from his diabetic foot ulcers. 07/20/17. Seen by Mitch Cota PA-C. The patient reports no increase in ulcer drainage since his last evaluation. 07/16/17. Seen by Mitch Cota PA-C. The patient has recently been in hospital where he had a NON-STEMI. He reports a reduction in drainage and wound odor after starting Augmentin. 07/01/17. Seen by Dr. Howe. The patient does not report significant drainage associated with the chronic bilateral plantar foot diabetic ulcers since his last visit. He will be picking up his new diabetic shoes today noting his partial right lateral foot amputation and multiple bilateral toe amputations plus Charcot deformity of both feet are contributing significantly to the recurrent heavy callus formation in the apollo-ulcer areas. He also states that he has not been covering his feet when he is in the shower despite our recommendation to do so. 06/19/17. Seen by Dr. Howe. The patient does not report significant drainage associated with the chronic bilateral plantar MTPJ diabetic ulcers since his last visit. Of note , the patient's blood sugar is 42 in clinic and was 35 earlier this morning. He's mildly symptomatic and is with his son who states the patient's food intake has been a bit less than usual due to limited funds at the end of the month. The patient also admits to trying to keep his blood sugars below 140 at all times and has had the problem of hypoglycemia in our clinic a number of times over the past year. 06/12/17. Seen by Dr. Howe. The patient does not report significant drainage associated with the chronic bilateral plantar MTPJ diabetic ulcers since his last visit. 06/05/17. Seen by Dr. Howe. The patient does not report significant drainage associated with the chronic bilateral plantar MTPJ diabetic ulcers since his last visit. He continues on Augmentin based on the recent wound culture and does not report adverse side effects. He also was seen by Dr. Garcia and his new diabetic shoes have been ordered noting his significant history of right lateral foot amputation and multiple toe amputations plus bilateral Charcot deformities. 05/29/17. Seen by Dr. Howe. The patient's wound culture from 2 days ago of a new right foot diabetic ulcer grew Streptococcus as well as Staph. He does not report increased drainage from this ulcer nor the chronic left foot diabetic ulcer. He is also not yet been seen by podiatry although we did send the referral over a couple weeks ago. His blood sugars continue to be well controlled and of note he has had extensive amputations of both the lateral aspect of the right foot as well as toes on both feet which has contributed significantly to recurrent callus and diabetic ulcer formation. 05/27/17. Seen by Mitch Cota PA-C. The patient reports a new ulcer to his right great toe that he believes has been continuously present for about a week. He denies any trauma to the area though states he may have been walking more lately. He is insensate and notes no pain, though he has seen purulent drainage in the area and notes a foul odor. 8/22/17. Seen by Dr. Howe. The patient does not report significant drainage associated with the chronic left plantar foot diabetic ulcer and he notes that heavy callus again has formed on the right plantar foot surface at the site of his recently healed diabetic ulcer. He has severe bilateral Charcot deformities along with multiple toe amputations that are contributing significantly to health information and the refractory and recurrent nature of his diabetic foot ulcers. He's also asked for us to address his toe nails today as it's been weeks since they've been trimmed. 05/05/17. Seen by Dr. Howe. The patient presents today with low blood sugars in the 40's and states he is feeling unwell in the waiting room. Upon my review he is lucid and eating and his blood sugars have increased into the 50s. He does not report any new problems regarding his chronic left foot diabetic ulcer and states that he has not discussed his hypoglycemia with his primary care provider yet despite having a number of episodes throughout the month. 04/28/17. Seen by Dr. Howe. The patient reports recurrence of his left plantar foot diabetic ulcer over the past week along with some new drainage that's quite malodorous. He does not report pain in the foot nor fevers nor any acute issues regarding his right lateral foot diabetic ulcer. He states his blood sugars continue to be well controlled with most below 120. 04/21/17. Seen by Dr. Howe. The patient does not report pain or drainage associated with the chronic right foot diabetic ulcers since his last visit. 04/14/17. Seen by Dr. Howe. The patient does not report pain or drainage associated with the chronic right foot diabetic ulcers since his last visit. His work diabetic shoe as recommended noting he is a partial right foot and right second toe amputations along with a significant Charcot deformity. 04/07/17. Seen by Dr. Howe. The patient does not report significant drainage or pain associated with the chronic right lower leg diabetic ulcers since his last visit. He snoring softly and she was recommended and reports his blood sugars have been well controlled. Of note, his significant deformity of the right foot including partial lateral amputation as well as second toe amputation and a significant Charcot deformity. 04/02/17. Seen by Dr. Howe. The patient reports that a coin accidentally fell into his right lower leg total contact cast a couple days ago. The staff found a johnson upon removing the cast as well as a new ulcer over the lateral aspect of the right foot. The patient does not report pain at the site nor does staff report significant drainage associated with new ulcer nor the chronic right plantar foot diabetic ulcer. The patient's blood sugars continue to be well controlled and he has no other acute complaints at this time. 03/28/17. Seen by Mitch Cota PA-C. The patient's recent wound culture demonstrated no growth. He has not noted increased drainage since his last evaluation. 03/23/17. Seen by Mitch Cota PA-C. The patient reports no increase in right foot ulcer drainage since his last evaluation. In addition his wound culture demonstrated no growth. 03/17/17. Seen by Dr. Howe. The patient does not report increased drainage associated with the chronic right first MTPJ diabetic ulcer.He completed his course of antibiotics that was treating the recent positive wound culture and does not report adverse side effects. He continues offload with a surgical shoe as well. 03/09/17. Seen by Dr. Howe. The patient does not report pain or significant drainage associated with the recurrent right foot diabetic ulcer. His culture of the ulcer was positive for a staph organism and Acinetobacter however he's not yet been started on antibiotics. He states his blood sugars continue to be well-controlled with most below 150. 03/02/17. Seen by Mitch Cota PA-C. The patient reports no improvement in drainage from his diabetic ulcer of the right foot. He has noted odor at times coming from the ulcer. 02/23/17. Seen by Mitch Cota PA-C. The patient reports no increase in drainage from his diabetic ulcer of the right foot. 02/09/17. Seen by Mitch Cota PA-C. The patient reports that he has just begun taking Bactrim for his infection of his right foot diabetic ulcer. He reports continued purulent drainage and odor. 02/02/17. Seen by Mitch Cota PA-C. The patient returns to our clinic with a new ulcer of his right first metatarsal head. He reportedly smacked his foot hard on the floor, creating this ulcer, in an attempt to stop an episode of neuropathy. 11/10/16. Seen by Mitch Cota PA-C. The patient returns for evaluation of his recently healed ulcer, fearing that it is open again. He has not seen liquid drainage but fears it is draining under the callous. 11/04/16. Seen by Mitch Cota PA-C. The patient does not report any difficulties with his TCC this week. 10/24/16. Seen by Dr. Howe. The patient does not report any problems regarding his TCC and staff do not repot significant drainage on the dressing overlying the left plantar foot diabetic ulcer. His blood sugars remain well controlled with most below 150. 10/20/16 Seen by Mitch Cota PA-C. The patient is here for placement of a TCC to offload his left plantar foot diabetic ulcer. He notes that the drainage from his ulcer has soaked through the TCC under-layers and almost soaked through the cast. 10/15/16. Seen by Dr. Howe. The patient tolerated his TCC with minimal discomfort noting mild pain in the left 1st toe. The staff do not report significant drainage associated with the chronic left plantar foot diabetic ulcer and he states his blood sugars are mostly below 150. He's now been placed in a TCC to optimize offloading needed to accommodate for the left foot Charcot deformity that's lead to recurrent heavy callus formation in the periulcer area. 10/13/16 Seen by Mitch Cota PA-C. The patient reports no increase in drainage from his left foot diabetic non-pressure ulcer since his last evaluation. 09/29/15 Seen by Mitch Cota PA-C. The patient reports no increase in drainage from his chronic left foot diabetic ulcer. He does voice frustration that his wound is taking so long to heal. 09/19/16. Seen by Dr. Howe. The patient does not report increased drainage or other acute issues regarding his chronic left plantar foot diabetic ulcer since his last visit. 09/12/16. Seen by Dr. Howe. The patient does not report significant drainage associated with the chronic left plantar foot diabetic ulcer over the past week. He's applying Kerasal to the periwound callus as recommended and has limited his walking considerably, in addition to wearing an offloading shoe, to minimize callus formation. His blood sugars also remain well controlled with most below 150 and he continues on Bactrim for an infection of the ulcer without reporting adverse side effects. 09/05/16. Seen by Dr. oHwe. The patient returns to clinic with recurrent of his left plantar foot diabetic ulcer that he states reopened about 2 weeks ago. He was placed on Keflex by his PCP yesterday due to the appearance of the ulcer and significant drainage. He states his blood sugars are well controlled and he limits his walking to help facilitate offloading. 07/28/16. Seen by Dr. Howe. The patient does not report significant drainage associated with the chronic left plantar foot diabetic ulcer over the past week. He's applying Kerasal to the periwound callus as recommended and states his blood sugars are consistently below 150. He does report ongoing nausea for the past few weeks and states he's on 3 nausea medications but does not know what's causing it. He's working with his PCP on this problem. 07/15/16 Seen by Mitch Cota PA-C. The patient reports no fever chills or pain from his left foot diabetic ulcer since his last evaluation. 07/10/16. Seen by Dr. Howe. The patient does not report significant drainage associated with the chronic left plantar foot diabetic ulcer over the past week. He's applying Kerasal to the periwound callus as recommended and has limited his walking considerably, in addition to wearing an offloading shoe, to minimize callus formation. 07/08/16 Seen by Mitch Cota PA-C. The patient reports no increase in pain or drainage from his ulcer, though he does report nausea and vomiting. After further review, it appears that his PPI prescription has run out and he stopped it abruptly. He has not had associated fever, chills or lower GI symptoms. His blood sugars have reportedly been above 150 this week. The patient reports that he still has problems with callous formation on his feet and will be seeing podiatry. 07/04/16. Seen by Dr. Howe. The patient does not report significant drainage associated with the chronic left plantar foot diabetic ulcer since his last visit. He does report significant nausea and vomiting over the past week however but does not report fever, cough, or other specific symptoms and feels the nausea has started to improve as of yesterday. He states his blood sugars have been well controlled with most below 150 and he's on Augmentin for the recent MSSA and Strep positive wound culture. He's also been applying Kerasal to the periwound callus as recommended and has been limited in his walking the past week due to illness. 06/23/16 Seeb by Mitch Cota PA-C. The patient reports that he believes he has an infection in his foot because his dog has been sniffing and licking his open ulcer. He believes his dog has a nose for infection. He reports a continuous, strong, foul odor from his left plantar foot ulcer for the past 3 days with an associated increase in drainage. In addition he has not been offloading his foot as instructed and is going barefoot at home. 06/16/16 Seen by Mitch Cota PA-C. The patient reports that he is walking barefoot in the house and only wears shoes outside the house. His left foot diabetic ulcer drainage has been stable. 06/02/16 Seen by Mitch Cota PA-C. The patient reports that he is due to have a new orthotic fitted for his deformed left foot to further offload his chronic left foot ulcer. He reports stable drainage from this ulcer. 05/27/16 Seen by Mitch Cota PA-C. The patient reports that he now has a new wound near his chronic left plantar foot diabetic ulcer. The new wound began spontaneously and was noted today. His chronic ulcer has had stable drainage. 05/19/16. Seen by Dr. Howe. The patient does not report significant drainage associated with the chronic left plant foot diabetic ulcer over the past week and he states his blood sugars are well controlled with most below 150. 05/12/16. Seen by Dr. Howe. The patient reports some new pain along the right foot surgical scar but no swelling or drainage from the site. He does not recall injuring the foot and feels he may have been more active over the past week. He does not report significant or drainage associated with the left plantar foot diabetic ulcer and states he's not been able to check his blood sugars due to the fact he ran out of glucometer strips this past week. His blood sugar today is 280. 04/11/16. Seen by Dr. Howe. The patient does not report pain or drainage associated with the chronic right lateral foot diabetic ulcer of the past week. He states his blood sugars are consistently below 150 and he is wearing his offloading shoe is recommended. 04/04/16. Seen by Dr. Howe. 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 He states his blood sugars are mostly below 150 and he's offloading using a surgical offloading shoe. He's now off of antibiotics and is here today with his granddaughter who's assisting with his care. 03/31/16 Seen by Mitch Cota PA-C. The patient has returned from [facility] where he had a 4th ray amputation performed to his right foot. He reports that he was supposed to have follow up appointments with surgery, cardiology and wound care but has not attended any of these appointments due to transportation difficulties. He is unsure of when his sutures are supposed to be removed. 02/28/16 Seen by Mitch Cota PA-C. The patient was seen at [facility] and evaluated by Dr. Monae on an urgent basis as arranged by Dr. Howe at his last visit. The patient reports that Dr. Monae wanted to urgently take him to surgery but the patient would prefer to have Dr. Garcia do it and refused admission to the hospital. 02/21/[address] Howe. The patient does not report pain or significant drainage associated with the Alonzo grade 3 right lateral foot diabetic ulcer and he saw Dr. Garcia , podiatry, this morning who reportedly states she's not able to perform any additional debridement until his right leg vascular status is further evaluated. He had an arterial Doppler scheduled yesterday however both the patient and his son state they were unaware of the appointment. He started taking his Augmentin, which is treating the MSSA and Strep viridans culture from 02/15/16, following the last visit as recommended, states his blood sugars have been consistently below 150 over the past week, and he's offloading by wearing a surgical shoe and significantly limiting his walking. Of note, he's still on supplemental oxygen following his recent hospital discharge and gets short of breath on minimal exertion. Please see my note below from his last visit regarding details of the admission and amputation. 02/15/[address] Howe. The patient does not report pain associated with the right lateral foot diabetic ulcer. He was discharged 4 days ago following a partial ray amputation of the 5th toe and MT due a progressive foot infection that he states occurred over about 2 days prior to being admitted to the hospital. His wound culture on arrival to the ER was polymicrobial and reported on Group C Strep. He was treated with IV Zosyn during the admission and prescribed Augmentin on discharge however he's not yet picked up the prescription. His blood sugars have been relatively well controlled with most below 150 since discharge. Of note, he also had a non-ST elevation ND post-operatively, acute on chronic renal failure with a Cr of 1.8 on discharge, and acute respiratory failure and continues on supplemental oxygen. 12/27/[address] Howe. The patient does not report drainage or pain associated with the chronic right plantar foot diabetic ulcer over the past week. He's not been applying Kerasal to the associated callus as recommended however he does not have diabetic shoes and a new AFO that he's been wearing. His blood sugars also remain relatively well controlled below 150 consistently. 12/06/[address] Howe. The patient does not report pain or significant drainage from the chronic right plantar foot diabetic ulcer. His blood sugars remain well controlled around 120 and he's now wearing his new diabetic shoes and offloading by limiting his walking significantly. He's also applying Kerasal daily to the right foot calluses as recommended. 11/29/[address] Howe. The patient does not report significant drainage from the chronic right plantar foot diabetic ulcer and he states his blood sugars remain well controlled below 150. He's also wearing his diabetic shoes now and limiting his walking to facilitate offloading. 11/23/[address] Howe. The patient reports moderate drainage but no pain associated with the chronic right plantar foot diabetic ulcer. He continues on doxycycline for a polymicrobial positive wound culture and he states his blood sugars remain well controlled with most below 120. 11/15/[address] Howe. The patient's wound culture from the last visit grew Enterobacter, Staph, and group G Strep however he's not yet picked up his prescription for doxycycline. He has at least moderate serosanquinous drainage on the dressing and states he's been a bit more active this past week as his son has been sick and unable to do the shopping. His blood sugar was also elevated yesterday near 200 but has been relatively well controlled prior to that. 11/08/15 Seen by Mitch Cota PA-C. The patient reports that his son is sick and he has been up on his feet taking care of him and has been unable to stay off of his feet. He has noted more drainage from his right plantar foot diabetic ulcer in the past few days. He also reports that his current shoes with inserts are making a large callous on his right heel and he doesn't feel that they offload his ulcer, so he has been trying to walk on the lateral edge of his right foot to offload his ulcer, and now is having lateral right foot pain as a result. 11/01/[address] Howe. The patient admits to being more active over the past two weeks but states there's only been very minimal drainage from the right plantar foot diabetic ulcer. His blood sugars also remain well controlled below 150 consistently. 10/18/[address] Howe. The patient does not report drainage from the right foot plantar diabetic ulcer however he states he has been more active the past week in terms of walking. His blood sugars also remain well controlled below 150. 10/11/[address] Howe. The patient does not report pain or drainage associated with the right plantar foot nor heel diabetic ulcers. 10/04/[address] Howe. The patient does not report drainage from the right plantar foot diabetic ulcer and he continues to use Kerasal daily for the significant right heel callus. His blood sugars are also well controlled below 120 consistently. 09/27/[address] Howe. The patient reports only minimal drainage from the right plantar foot diabetic ulcer and states his blood sugars continue to improve with most between 120 and 180. He's also applying Kerasal to the bilateral foot calluses daily as we've requested. 09/19/[address] Howe. The patient reports significantly decreased drainage from the right plantar foot diabetic ulcer and he'll complete his course of levofloxacin today that treating the polymicrobial wound culture from 09/04/15. His blood sugars are also much better controlled over the past week with most around 150 and very few over 200. 09/12/[address] Howe. The patient continues to report significant drainage from the right plantar diabetic foot ulcer and his wound culture from 09/04/15 grew Strep , Providencia, and Neisseria species. He's now on levofloxacin and does not report adverse effects. He's also no longer experiencing severe hypoglycemic episodes and is working closely with is PCP on adjusting his insulin regimen. His blood sugars due tend to remain over 200 however. 09/07/[address] Howe. The patient continues to report blood sugars as low as the 40's since our visit last week. Regarding his foot ulcers, he reports continued foul smelling drainage from the right foot diabetic ulcer but none from right heel or left foot diabetic ulcer. His blood sugars also may be as high as 300 and he states he's compliant with his diabetes medication regimen and will require as much as 30-40 units of short acting insulin on occasion. He does not report pain in the feet nor fevers or other systemic symptoms. 08/31/[address] Howe. The patient is new to our clinic. On arrival he was not feeling well and was tremulous. The MA checked his blood sugar and is registered 34 which is the lowest the glucometer would read. I spoke with him and he reported feeling very unwell at which time he was urgently transferred to the ER. Of note, he was in the clinic to review bilateral diabetic foot ulcers. He'd also recently lost a son and has been very upset the past week according to staff. Past Medical History This information was obtained from the patient Patient has a medical history of: Chronic Obstructive Pulmonary Disease (COPD) Type II Diabetes (A1c 7.4 on 11/12/2015) PAD Peripheral neuropathy Hypoglycemia CVA Diabetic foot ulcer (Right plantar 1st MTPJ, Alonzo grade II) Coronary Artery Disease (CAD) (s/p ND during admission on 02/04/2016) Lumbar strain CHF Hyperlipidemia CKD stage 3 Gout Diabetic foot ulcer - 02/04/2016 (right lateral foot s/p partial ray amputation; Alonzo grade 3; MSSA and Strep viridans cultured) Complaints and Symptoms This information was obtained from the patient Patient complains of: General Notes: I have reviewed and concur with the Review of Systems and Past Family Social History documents completed by the clinician, I have reviewed and concur with the Wound Assessment document completed by the clinician Cardiovascular (Central): Dyspnea on Exertion Ear/Nose/Mouth/Throat: Hearing Loss / Aid Integumentary (Hair/Skin/Nails): Open Sore Musculoskeletal: Assistive Devices, Deformities Neurological: Loss of Protective Sensation Prior Wound History: Drainage, Erythema, Malodor Patient denies complaints or symptoms related to: Cardiovascular (Central/Peripheral): Intermittent Claudication, Lower extremity (leg) resting pain Constitutional Symptoms (General Health): Chills, Fever Gastrointestinal (GI): Nausea / Vomiting, Stomach/abdominal pain Hematologic/Lymphatic: Bleeding / Clotting Disorders, Bleeding Tendency Musculoskeletal: Muscle Weakness Prior Wound History: Bleeding, Pain Psychiatric: Anxiety, Memory Loss Respiratory: Oxygen Use, Shortness of Breath OBJECTIVE Constitutional BP elevated; Afebrile; Alert and in no distress. Well developed. Alert. Clean appearing.. Height/Length: 72 in (182.88 cm), Weight: 223.5 lbs (101.59 kgs), BMI: 30.3, Temperature: 98.2 ?F (36.78 ?C), Pulse: 59 bpm, Respiratory Rate: 18 breaths/min, Blood Pressure: 154/65 mmHg, Capillary Blood Glucose: 462 mg/dl, Pulse Oximetry: 96 %. Ears, Nose, Mouth, and Throat: Mild hearing deficit. Respiratory: No respiratory distress. Even respirations and without use of accessory muscles.. Cardiovascular: Affected extremity exhibits no peripheral edema or cyanosis, is warm, and is well perfused. Capillary refill is less than 2 seconds. Musculoskeletal: Right lateral foot partial amputation. Moderate left foot Charcot deformity. Integumentary (Hair, Skin) No periwound erythema, warmth, or significant drainage. No periwound rashes appreciated or noted otherwise.. Refer to appropriate clinician wound documentation for this visit; right and left foot ulcers extend to subcut with bases partially covered with pink granulation, remainder fibrin and slough; both larger than on previous review. Significant amount of callus and maceration in the periulcer areas. Wound #11 Left Metatarsal head first is a chronic Alonzo Grade 2 Diabetic Ulcer and has received a status of Not Healed. Subsequent wound encounter measurements are 1.2cm length x 1.1cm width x 0.5cm depth, with an area of 1.32 sq cm and a volume of 0.66 cubic cm. No tunneling has been noted. No sinus tract has been noted. No undermining has been noted. There is a large amount of sero-sanguineous drainage noted which has no odor. The patient reports no wound pain due to the wound being insensate. The wound margin is callus. Wound bed has No epithelialization, No eschar, No slough, Yes bright red, pink, spongy granulation. The periwound skin color is normal. The periwound skin exhibited: Callus, Moist. The periwound skin did not exhibit: Brawny Induration, Edema, Excoriation, Induration, Crepitus, Fluctuance, Friable, Rash, Dry/Scaly, Maceration. The temperature of the periwound skin is WNL. Periwound skin does not exhibit signs or symptoms of infection. Local Pulse is Palpable. Wound #12 Right, Plantar Metatarsal head first is a Alonzo Grade 2 Diabetic Ulcer and has received a status of Not Healed. Subsequent wound encounter measurements are 1.9cm length x 1.3cm width x 0.3cm depth, with an area of 2.47 sq cm and a volume of 0.741 cubic cm. No tunneling has been noted. No sinus tract has been noted. No undermining has been noted. There is a copious amount of sanguineous drainage noted which has no odor. The patient reports no wound pain due to the wound being insensate. The wound margin is callus. Wound bed has No epithelialization, No eschar, No slough, Yes pink, firm granulation. The periwound skin color is normal. The periwound skin exhibited: Callus, Moist. The periwound skin did not exhibit: Brawny Induration, Edema, Excoriation, Induration, Crepitus, Fluctuance, Friable, Rash, Dry/Scaly, Maceration. The temperature of the periwound skin is WNL. Periwound skin does not exhibit signs or symptoms of infection. Local Pulse is Normal. Neurological: Cranial nerves grossly intact with symmetric function normal by informal observation.. ASSESSMENT Active Problems ICD-10 (Encounter Diagnosis) L97.522 - Non-pressure chronic ulcer of other part of left foot with fat layer exposed (Encounter Diagnosis) L97.512 - Non-pressure chronic ulcer of other part of right foot with fat layer exposed (Encounter Diagnosis) E11.621 - Type 2 diabetes mellitus with foot ulcer (Encounter Diagnosis) E11.65 - Type 2 diabetes mellitus with hyperglycemia (Encounter Diagnosis) Z91.19 - Patient's noncompliance with other medical treatment and regimen PROCEDURES Wound #11 Wound #11 (Diabetic Ulcer) is located on the left metatarsal head first. A skin/ subcutaneous tissue level surgical debridement with a total area debrided of 1.32 sq cm was performed by Nando Howe MD. Subcutaneous was removed along with devitalized tissue: callus and slough. The following instrument(s) were used: curette. Pain control was achieved using 4% Lido. A time out was conducted prior to the start of the procedure. A minimal amount of bleeding was controlled with silver nitrate. The procedure was tolerated well with a pain level of 0 throughout and a pain level of 0 following the procedure. Post Debridement Measurements: 1.2cm length x 1.1cm width x 0.6cm depth; with an area of 1.32 sq cm and a volume of 0.792 cubic cm; Wound #12 Wound #12 (Diabetic Ulcer) is located on the right, plantar metatarsal head first. A skin/subcutaneous tissue level surgical debridement with a total area debrided of 2.47 sq cm was performed by Nando Howe MD. Subcutaneous was removed along with devitalized tissue: callus and slough. The following instrument(s) were used: curette. Pain control was achieved using 4% Lido. A time out was conducted prior to the start of the procedure. A minimal amount of bleeding was controlled with silver nitrate. The procedure was tolerated well with a pain level of 0 throughout and a pain level of 0 following the procedure. Post Debridement Measurements: 1.9cm length x 1.3cm width x 0.4cm depth; with an area of 2.47 sq cm and a volume of 0.988 cubic cm; Additional Information Muscle fascia or bone removed and sent to pathology?: No Muscle fascia or bone removed and sent to pathology?: No PLAN Wound Orders: Wound #11 Left Metatarsal head first Anesthetic Topical Xylocaine to wound bed. - In clinic only. Cleanser Cleanse Wound: - Normal saline and gauze, may use distilled water at home. May Shower. - Keep covered in shower with cast protector or plastic bag. Topical Treatments Antibiotic/Antimicrobial Ointment/Cream. - Iodosorb to wound bed. Dressings Cover and secure with: - Foam and hypafix tape. Change Dressing: - Daily. Wound #12 Right, Plantar Metatarsal head first Anesthetic Topical Xylocaine to wound bed. - In clinic only. Cleanser Cleanse Wound: - Normal saline and gauze, may use distilled water at home. May Shower. - Keep covered in shower with cast protector or plastic bag. Topical Treatments Antibiotic/Antimicrobial Ointment/Cream. - Iodosorb to wound bed. Dressings Cover and secure with: - Foam and hypafix tape. Change Dressing: - Daily. Additional Orders: Off-Loading Keep weight off: - Both feet as much as possible. Follow-Up Appointments Return Appointment: - - Tuesdays and Fridays. Other information: If you develop fever, chills, increased pain, drainage, redness or swelling please call our office. If after hours, respond to the ER. Should you experience any significant changes in your wound(s) or have any questions regarding your home care instructions please contact the wound center @ [phone]. If after hours, contact your primary care physician or go to the hospital emergency room. - Please see Yuliana for insoles in your levelock boot and tennis shoes. Scribing Attestation I attest, as the nurse, that I scribed these orders for the physician. Laboratory: Bacteria identified in Wound by Culture I've reviewed the clinician's documentation and agree with the evaluation and plan as written. In addition the patient's ulcers demonstrate evidence of non-viable devitalized tissue and they will continue to benefit from sharp debridement to help promote granulation and expedite healing. Also, the patient's been strongly encouraged to wear his WASHOE boot as recommended and to pick up attendant his insulin and glucose strips today. Electronic Signature(s) Signed By: Date: Nando Howe MD 03/31/2018 06:43:39 Entered By: Nando Howe on 03/30/2018 12:36:11
== END ==
PROVIDERS: Family Provider Physician Assistant Medical; PCP Physician Assistant Medical; Visit Provider Internal Medicine
DX: E11.621 Type 2 diabetes mellitus with foot ulcer (principal); E11.65 Type 2 diabetes mellitus with hyperglycemia; L97.522 Non-pressure chronic ulcer of other part of left foot with fat layer exposed; L97.512 Non-pressure chronic ulcer of other part of right foot with fat layer exposed; Z91.19 Patient's noncompliance with other medical treatment and regimen; M21.6X1 Other acquired deformities of right foot
CPT/HCPCS: 11042; 87070; 87075; 87077; 87147; 87186; 87205

== ENCOUNTER → 2018-04-02 10:07 | Outpatient (CLI) | payer MEDICARE, SELFPAY ==
--- NOTE | 2018-04-02 | OV.WND_ITS ---
Progress Note Details Patient Name: Nick Drake Patient Number: [id number] PatientPatientDate: 04/02/2018 Clinician: Deanna Floyd Clinician Cosigner: Mary Rosales Physician / Feeder/Folder: Nando Howe SUBJECTIVE Chief Complaint This information was obtained from the patient Diabetic ulcers to right and left foot. Allergies Minipress (Severity: Severe, Reaction: violent behavior), Vicodin (Severity: Mild, Reaction: itching), nortriptyline (Severity: Moderate), Avandia (Severity: Moderate) HPI This information was obtained from the patient 04/02/18. Seen by Dr. Howe. The patient continues to wear his [employer] boot to offload the right foot 1st MTPJ diabetic ulcer and address the significant deformity associated with the partial lateral foot amputation and he does not report increased drainage associated with this ulcer nor the left plantar foot diabetic ulcer since his last. His wound culture from the last visit grew Staph and group G Strep and he's not currently on antibiotics. 03/30/18. Seen by Dr. Howe. The patient missed his last two appointments and states over the 24 of March he was wearing socks on his deck and noticed bleeding from the bilateral diabetic foot ulcers. His blood sugars are over 400 today and he's run our of insulin and glucose strips. He does not report pain associated with the ulcers and notes he's not wearing his [employer] boot on the right foot at all times as recommended. He has a right partial foot amputation and Charcot deformity of both feet. 03/22/18. Seen by Dr. Howe. The patient continues to wear his [employer] boot to offload the right foot 1st MTPJ diabetic ulcer and address the significant deformity associated with the partial lateral foot amputation and he does not report increased drainage associated with this ulcer nor the left plantar foot diabetic ulcer since his last. 03/15/18. Seen by Mitch York PA-C. The patient reports that he is compliant with his [employer] boot but notes increased bleeding and drainage seen in the boot. 03/11/18. Seen by Mitch Cota PA-C. The patient reports stable drainage from his diabetic foot ulcers. His blood sugars continue to be above 150 this week. 03/04/18. Seen by Dr. Howe. The patient continues to wear his [employer] boot to offload the right foot 1st MTPJ diabetic ulcer and address the significant deformity associated with the partial lateral foot amputation and he does not report increased drainage associated with this ulcer nor the left plantar foot diabetic ulcer since his last. He recently completed a course of doxycycline to treat a group G Strep positive culture and is applying iodosorb to the ulcers to help manage the persistent drainage. 03/01/18. Seen by Dr. Howe. The patient continues to wear his [employer] boot to offload the right foot 1st MTPJ diabetic ulcer and address the significant deformity associated with the partial lateral foot amputation. He does not report significant drainage associated with this ulcer nor the left plantar foot diabetic ulcer since his last. 02/25/18. Seen by Dr. Howe. The patient will complete his course of doxycycline today that's treating the Staph and group G Strep positive culture taken from the right foot diabetic ulcer. He does not report adverse side effects and nor significant drainage from the ulcer or the left plantar foot diabetic ulcer. 02/22/18. Seen by Dr. Howe. The patient is now on doxycycline for the Staph and group G Strep positive culture taken from the right foot diabetic ulcer last week. He notes some bloody drainage from this site on his dressing today but feels this ulcer and the left foot diabetic ulcer have improved over the past few week. He's offloading the right foot which has a partial lateral amputation using his [employer] boot as recommended however he's not using a frame walker. He does not report adverse side effects of the antibiotics nor other acute issues today. 02/18/18. Seen by Dr. Howe. The staff report increased drainage associated with both plantar foot 1st MTPJ diabetic ulcers and the patient reports a malodor from the dressings over the past week. He does not report fevers, feeling unwell, or pain in the feet but states his blood sugars have been a bit elevated in the 180s. He's also wearing his [employer] boot as recommended on the right foot but states he does not have enough room in his house to use a knee scooter and does not use his frame walker. 02/11/18. Seen by Dr. Howe. The patient continues to wear his [employer] boot to offload the right foot 1st MTPJ diabetic ulcer and address the significant deformity associated with the partial lateral foot amputation. He does not report significant drainage associated with this ulcer nor the left plantar foot diabetic ulcer since his last visit however the nurse states the mole skin dressing was applied inappropriately over the left foot ulcer and was overlying the ulcer itself and soaked with drainage. 02/04/18. Seen by Dr. Howe. The patient continues to wear his [employer] boot to offload the right foot 1st MTPJ diabetic ulcer and address the significant deformity associated with the partial lateral foot amputation. He does not report significant drainage associated with this ulcer nor the left plantar foot diabetic ulcer since his last visit. 01/28/2018. Seen by Dr. Howe. The patient is now wearing his [employer] boot to offload the right foot 1st MTPJ diabetic ulcer and address the significant deformity associated with the partial lateral foot amputation. He does not report significant drainage associated with this ulcer nor the left plantar foot diabetic ulcer since his last visit. 01/26/18. Seen by Dr. Howe. The patient states he has been without his insulin for over a week which is likely the cause of his blood sugars being around 400 over the past few visits. He has also not contacted his orthotics provider regarding the offloading [employer] boot to wear on the right foot noting his significant deformity caused by the partial lateral foot amputation. He has not report increased drainage or other acute changes regarding his bilateral diabetic foot ulcers and will complete his course of doxycycline its treated the recent MSSA positive culture tomorrow. He also reports nausea and one episode of emesis earlier today but not other acute issues. 01/21/2018. Seen by Dr. Howe. The patient arrived today with his right foot dressing upside down. His blood sugars are also over 400. The patient does not report increased drainage associated with the right or left diabetic foot ulcers however states his neuropathic pain has been significant over the past 2 days. 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 Ulcer callus formation. He also continues on doxycycline for he recent MSSA positive wound culture. 01/18/2018. Seen by Dr. Howe. The patient's wound culture from the left foot diabetic ulcer grew MSSA resistant to gentamicin. He is not currently on oral antibiotics and does not report increased drainage from either left right foot diabetic ulcers and is still waiting for his [employer] boot to be available to help facilitate better offloading of the right foot noting his partial lateral right foot amputation and severe Charcot deformity. 01/14/18. Seen by Dr. Howe. The patient continues to report moderate drainage from the right and left diabetic foot ulcers over the past few days and he's seen his director regulatory affairs who's ordered a [employer] boot for the right foot which should be available next week. He has severe bilateral Charcot deformities and partial right lateral foot amputation that contributes to the refractory nature of the ulcers and very heavy callus formation. 01/12/18. Seen by Dr. Howe. The patient reports moderate drainage from the right and left diabetic foot ulcers and he's seen his director regulatory affairs who's ordered a [employer] boot for the right foot. He has bilateral partial lateral foot amputations which have resulted in refractory calluses of the bilateral plantar MTPJ's and associated DFU's. His blood have been well controlled and his recent hypoglycemic episodes have resolved. 01/07/18. Seen by Dr. Howe. The patient missed his last 2 appointments due to a GI illness last week and she reports some pain in the lateral aspect of the right forefoot but no increased drainage, swelling, or other acute changes of the diabetic foot ulcer. He also does not report any acute issues regarding the left diabetic foot ulcer. Of note, he has significant deformities of both feet due to partial amputations which have each contributed significantly to severe callus formation and the refractory nature of the ulcers. 01/01/18. Seen by Dr. Howe. The patient continues on clindamycin for the chronic right diabetic foot ulcer infection and it is not reported adverse side effects. He also does not report significant drainage associated with either left or right diabetic foot ulcer since his last visit. 12/28/17. Seen by Dr. Howe. The patient does not report increased drainage associated with either right or left foot diabetic ulcers since his last visit. He continues on clindamycin without reporting adverse side effects to treat the chronic right ulcer infection and his blood sugars are well controlled. Of note, he has been attending clinic twice weekly to optimize management of his recurrent and severe apollo-ulcer calluses that are in part due to his severe Charcot deformities and bilateral partial foot amputations. 12/21/17. Seen by Dr. Howe. The patient reports some drainage associated with the right foot diabetic ulcer since his last visit but none associated with the left foot diabetic ulcer. He completed his course of doxycycline today is treating the recent MSSA positive wound culture and is reported adverse side effects, fevers, feeling unwell. He states his blood sugars continue to be well controlled below 180. 12/15/17. Cinthia Howe. The patient's wound culture from the left plantar foot diabetic ulcer his last visit grew MSSA resistant to gentamicin. He does not report increased drainage or pain from either diabetic foot ulcers since his last visit. 12/10/17. Seen by REN Olea. The patient does not report increased drainage from his bilateral diabetic foot ulcers but does report continued odor. Notes a large amount of callous growth. Wound culture from last week showed MSSA and Diphtheroids. He has been applying topical gentamicin. 12/03/17. Seen by Mitch Cota PA-C. The patient reports increased drainage and odor from his bilateral diabetic foot ulcers. He continues to have elevated blood sugars. 11/26/17. Seen by Mitch Cota PA-C. The patient reports that he has decreased his usage of marijuana which he uses for recreation and to treat his neuropathy. He has not had a ground level fall since decreasing his usage. His blood sugars remain >150 and his ulcers' drainage is stable. 11/20/17. Seen by Mitch Cota PA-C. The patient reports no increase in his ulcer drainage from his bilateral lower extremity diabetic ulcers. He has not scheduled an appointment to see his PCP to address his consistently high blood sugars. 11/13/17. Seen by Mitch Cota PA-C. The patient reports stable drainage from his diabetic foot ulcers and continued difficulty keeping his blood sugars below 150. He also reports not wearing his diabetic shoes when at home. 11/09/17. Seen by Mitch Cota PA-C. The patient reports high blood sugars again this week. He does not report increased drainage though he notes callous formation continues to happen quickly between visits. 11/06/17. Seen by Dr. Howe. The patient does not report increased drainage associated with the chronic bilateral diabetic foot ulcers since the last visit. 11/02/17. Seen by Mitch Cota PA-C. The patient reports no increased drainage from his bilateral diabetic foot ulcers. He is not surprised that his blood sugar is low this morning as he did not eat dinner yesterday or breakfast today, citing mild GI discomfort. 10/30/17. Seen by Dr. Howe. The patient missed a few appointments recently due to our facility power outage however he does not report increased drainage or other acute issues regarding his bilateral first MTPJ plantar foot diabetic ulcers. 10/23/17. Seen by Mitch Cota PA-C. The patient reports that he did not take his insulin, or eat this morning. Drainage from his diabetic foot ulcers has been stable. 10/15/17. Seen by Mitch Cota PA-C. The patient reports high blood sugars this week and stable drainage from his foot ulcers. 10/13/17. Seen by Dr. Howe. The patient does not report increased drainage associated with the bilateral plantar foot diabetic ulcers since his last visit. 10/01/17. Seen by Dr. Howe. The patient does not report increased drainage associated with either left or right plantar foot diabetic ulcers since his last visit. 10/01/17. Seen by Dr. Howe. The patient does not report increased drainage associated with either left or right plantar foot diabetic ulcers since his last visit. 09/28/17. Seen by Dr. Howe. The patient does not report increased drainage associated with either left or right plantar foot diabetic ulcers since his last visit. He has been offloading as recommended as well. 09/24/17. Seen by Dr. Howe. The patient reports some increased drainage associated with the right chronic diabetic foot ulcer but none with the left chronic diabetic foot ulcer since his last visit. His blood sugars have been well controlled and he does not report pain in either feet or fevers or feeling unwell. He had been seen twice weekly due to the recent deterioration of the right foot ulcer and need for frequent debridement of the periulcer callus. 09/16/17. Seen by Dr. Howe. The patient does not report significant drainage associated with the bilateral plantar foot diabetic ulcers since last visit and his blood sugars are well controlled over the past week. 09/11/17. Seen by Dr. Howe. The patient states that the right foot diabetic ulcer bled significantly earlier this week when he got out of the shower. He had his INR checked yesterday and it was 3.5. He does not report increased drainage otherwise from either the left or right foot diabetic ulcers since his last visit. He's been seen as twice weekly for the past 2 weeks due to the very heavy accumulation of callus associated with the right foot ulcer. 09/08/17. Seen by Dr. Howe. The patient does not report increased drainage associated with bilateral foot diabetic ulcers since his last visit. 09/04/17. Seen by Dr. Howe. The patient does not report significant drainage associated with the bilateral plantar foot diabetic ulcers since last visit and his blood sugars are well controlled over the past week. 08/31/17. Seen by Dr. Howe. The patient does not report increased drainage associated with the bilateral plantar foot diabetic ulcers since his last visit and he continues on doxycycline for the positive right foot ulcer wound culture. His blood sugars have been well- controlled for the past week and he has had no further episodes of hypoglycemia. 08/26/17. Seen by Dr. Howe. The patient is now on doxycycline resistant MSSA positive wound culture taken from his right diabetic foot ulcer and does not report other side effects. He has picked up his new diabetic shoes and is wearing them as recommended. His blood sugar today is 58 in clinic and he has recently had his short-acting insulin increased by his primary care provider due to frequent episodes of hyperglycemia. He is scheduled to see his PCP again tomorrow to discuss the changes. 08/18/17. Seen by Mitch Cota PA-C. The patient reports a foul odor from his bilateral foot ulcers. He reports that he is feeling much better after an ER trip for hypoxia and his recent O2 saturation readings have been 100%. 08/06/17. Seen by Dr. Howe. The patient reports feeling unwell along with progressive shortness of breath while at rest over the past week. He says he had a low- grade fever at home today and staff report is O2 sats in low 90s upon arrival. He has a history of COPD also with possible admission for pneumonia within the past year. He is here for review of chronic diabetic foot ulcers that have been relatively stable for the past few weeks. 07/28/17. Seen by Mitch Cota PA-C. The patient reports increased drainage and bleeding from his diabetic foot ulcers. 07/20/17. Seen by Mitch Cota PA-C. The patient reports no increase in ulcer drainage since his last evaluation. 07/16/17. Seen by Mitch Cota PA-C. The patient has recently been in hospital where he had a NON-STEMI. He reports a reduction in drainage and wound odor after starting Augmentin. 07/01/17. Seen by Dr. Howe. The patient does not report significant drainage associated with the chronic bilateral plantar foot diabetic ulcers since his last visit. He will be picking up his new diabetic shoes today noting his partial right lateral foot amputation and multiple bilateral toe amputations plus Charcot deformity of both feet are contributing significantly to the recurrent heavy callus formation in the apollo-ulcer areas. He also states that he has not been covering his feet when he is in the shower despite our recommendation to do so. 06/19/17. Seen by Dr. Howe. The patient does not report significant drainage associated with the chronic bilateral plantar MTPJ diabetic ulcers since his last visit. Of note , the patient's blood sugar is 42 in clinic and was 35 earlier this morning. He's mildly symptomatic and is with his son who states the patient's food intake has been a bit less than usual due to limited funds at the end of the month. The patient also admits to trying to keep his blood sugars below 140 at all times and has had the problem of hypoglycemia in our clinic a number of times over the past year. 06/12/17. Seen by Dr. Howe. The patient does not report significant drainage associated with the chronic bilateral plantar MTPJ diabetic ulcers since his last visit. 06/05/17. Seen by Dr. Howe. The patient does not report significant drainage associated with the chronic bilateral plantar MTPJ diabetic ulcers since his last visit. He continues on Augmentin based on the recent wound culture and does not report adverse side effects. He also was seen by Dr. Garcia and his new diabetic shoes have been ordered noting his significant history of right lateral foot amputation and multiple toe amputations plus bilateral Charcot deformities. 05/29/17. Seen by Dr. Howe. The patient's wound culture from 2 days ago of a new right foot diabetic ulcer grew Streptococcus as well as Staph. He does not report increased drainage from this ulcer nor the chronic left foot diabetic ulcer. He is also not yet been seen by podiatry although we did send the referral over a couple weeks ago. His blood sugars continue to be well controlled and of note he has had extensive amputations of both the lateral aspect of the right foot as well as toes on both feet which has contributed significantly to recurrent callus and diabetic ulcer formation. 05/27/17. Seen by Mitch Cota PA-C. The patient reports a new ulcer to his right great toe that he believes has been continuously present for about a week. He denies any trauma to the area though states he may have been walking more lately. He is insensate and notes no pain, though he has seen purulent drainage in the area and notes a foul odor. 05/12/17. Seen by Dr. Howe. The patient does not report significant drainage associated with the chronic left plantar foot diabetic ulcer and he notes that heavy callus again has formed on the right plantar foot surface at the site of his recently healed diabetic ulcer. He has severe bilateral Charcot deformities along with multiple toe amputations that are contributing significantly to health information and the refractory and recurrent nature of his diabetic foot ulcers. He's also asked for us to address his toe nails today as it's been weeks since they've been trimmed. 05/05/17. Seen by Dr. Howe. The patient presents today with low blood sugars in the 40's and states he is feeling unwell in the waiting room. Upon my review he is lucid and eating and his blood sugars have increased into the 50s. He does not report any new problems regarding his chronic left foot diabetic ulcer and states that he has not discussed his hypoglycemia with his primary care provider yet despite having a number of episodes throughout the month. 04/28/17. Seen by Dr. Howe. The patient reports recurrence of his left plantar foot diabetic ulcer over the past week along with some new drainage that's quite malodorous. He does not report pain in the foot nor fevers nor any acute issues regarding his right lateral foot diabetic ulcer. He states his blood sugars continue to be well controlled with most below 120. 04/21/17. Seen by Dr. Howe. The patient does not report pain or drainage associated with the chronic right foot diabetic ulcers since his last visit. 04/14/17. Seen by Dr. Howe. The patient does not report pain or drainage associated with the chronic right foot diabetic ulcers since his last visit. His work diabetic shoe as recommended noting he is a partial right foot and right second toe amputations along with a significant Charcot deformity. 04/07/17. Seen by Dr. Howe. The patient does not report significant drainage or pain associated with the chronic right lower leg diabetic ulcers since his last visit. He snoring softly and she was recommended and reports his blood sugars have been well controlled. Of note, his significant deformity of the right foot including partial lateral amputation as well as second toe amputation and a significant Charcot deformity. 04/02/17. Seen by Dr. Howe. The patient reports that a coin accidentally fell into his right lower leg total contact cast a couple days ago. The staff found a johnson upon removing the cast as well as a new ulcer over the lateral aspect of the right foot. The patient does not report pain at the site nor does staff report significant drainage associated with new ulcer nor the chronic right plantar foot diabetic ulcer. The patient's blood sugars continue to be well controlled and he has no other acute complaints at this time. 03/28/17. Seen by Mitch Cota PA-C. The patient's recent wound culture demonstrated no growth. He has not noted increased drainage since his last evaluation. 03/23/17. Seen by Mitch Cota PA-C. The patient reports no increase in right foot ulcer drainage since his last evaluation. In addition his wound culture demonstrated no growth. 03/17/17. Seen by Dr. Howe. The patient does not report increased drainage associated with the chronic right first MTPJ diabetic ulcer.He completed his course of antibiotics that was treating the recent positive wound culture and does not report adverse side effects. He continues offload with a surgical shoe as well. 03/09/17. Seen by Dr. Howe. The patient does not report pain or significant drainage associated with the recurrent right foot diabetic ulcer. His culture of the ulcer was positive for a staph organism and Acinetobacter however he's not yet been started on antibiotics. He states his blood sugars continue to be well-controlled with most below 150. 03/02/17. Seen by Mitch Cota PA-C. The patient reports no improvement in drainage from his diabetic ulcer of the right foot. He has noted odor at times coming from the ulcer. 02/23/17. Seen by Mitch Cota PA-C. The patient reports no increase in drainage from his diabetic ulcer of the right foot. 02/09/17. Seen by Mitch Cota PA-C. The patient reports that he has just begun taking Bactrim for his infection of his right foot diabetic ulcer. He reports continued purulent drainage and odor. 02/02/17. Seen by Mitch Cota PA-C. The patient returns to our clinic with a new ulcer of his right first metatarsal head. He reportedly smacked his foot hard on the floor, creating this ulcer, in an attempt to stop an episode of neuropathy. 11/10/16. Seen by Mitch Cota PA-C. The patient returns for evaluation of his recently healed ulcer, fearing that it is open again. He has not seen liquid drainage but fears it is draining under the callous. 11/04/16. Seen by Mitch Cota PA-C. The patient does not report any difficulties with his TCC this week. 10/24/16. Seen by Dr. Howe. The patient does not report any problems regarding his TCC and staff do not repot significant drainage on the dressing overlying the left plantar foot diabetic ulcer. His blood sugars remain well controlled with most below 150. 10/20/16 Seen by Mitch Cota PA-C. The patient is here for placement of a TCC to offload his left plantar foot diabetic ulcer. He notes that the drainage from his ulcer has soaked through the TCC under-layers and almost soaked through the cast. 10/15/16. Seen by Dr. Howe. The patient tolerated his TCC with minimal discomfort noting mild pain in the left 1st toe. The staff do not report significant drainage associated with the chronic left plantar foot diabetic ulcer and he states his blood sugars are mostly below 150. He's now been placed in a TCC to optimize offloading needed to accommodate for the left foot Charcot deformity that's lead to recurrent heavy callus formation in the periulcer area. 10/13/16 Seen by Mitch Cota PA-C. The patient reports no increase in drainage from his left foot diabetic non-pressure ulcer since his last evaluation. 09/29/15 Seen by Mitch Cota PA-C. The patient reports no increase in drainage from his chronic left foot diabetic ulcer. He does voice frustration that his wound is taking so long to heal. 09/19/16. Seen by Dr. Howe. The patient does not report increased drainage or other acute issues regarding his chronic left plantar foot diabetic ulcer since his last visit. 09/12/16. Seen by Dr. Howe. The patient does not report significant drainage associated with the chronic left plantar foot diabetic ulcer over the past week. He's applying Kerasal to the periwound callus as recommended and has limited his walking considerably, in addition to wearing an offloading shoe, to minimize callus formation. His blood sugars also remain well controlled with most below 150 and he continues on Bactrim for an infection of the ulcer without reporting adverse side effects. 09/05/16. Seen by Dr. Howe. The patient returns to clinic with recurrent of his left plantar foot diabetic ulcer that he states reopened about 2 weeks ago. He was placed on Keflex by his PCP yesterday due to the appearance of the ulcer and significant drainage. He states his blood sugars are well controlled and he limits his walking to help facilitate offloading. 07/28/16. Seen by Dr. Howe. The patient does not report significant drainage associated with the chronic left plantar foot diabetic ulcer over the past week. He's applying Kerasal to the periwound callus as recommended and states his blood sugars are consistently below 150. He does report ongoing nausea for the past few weeks and states he's on 3 nausea medications but does not know what's causing it. He's working with his PCP on this problem. 07/15/16 Seen by Mitch Cota PA-C. The patient reports no fever chills or pain from his left foot diabetic ulcer since his last evaluation. 07/10/16. Seen by Dr. Howe. The patient does not report significant drainage associated with the chronic left plantar foot diabetic ulcer over the past week. He's applying Kerasal to the periwound callus as recommended and has limited his walking considerably, in addition to wearing an offloading shoe, to minimize callus formation. 07/08/16 Seen by Mitch Cota PA-C. The patient reports no increase in pain or drainage from his ulcer, though he does report nausea and vomiting. After further review, it appears that his PPI prescription has run out and he stopped it abruptly. He has not had associated fever, chills or lower GI symptoms. His blood sugars have reportedly been above 150 this week. The patient reports that he still has problems with callous formation on his feet and will be seeing podiatry. 07/04/16. Seen by Dr. Howe. The patient does not report significant drainage associated with the chronic left plantar foot diabetic ulcer since his last visit. He does report significant nausea and vomiting over the past week however but does not report fever, cough, or other specific symptoms and feels the nausea has started to improve as of yesterday. He states his blood sugars have been well controlled with most below 150 and he's on Augmentin for the recent MSSA and Strep positive wound culture. He's also been applying Kerasal to the periwound callus as recommended and has been limited in his walking the past week due to illness. 06/23/16 Seeb by Mitch Cota PA-C. The patient reports that he believes he has an infection in his foot because his dog has been sniffing and licking his open ulcer. He believes his dog has a nose for infection. He reports a continuous, strong, foul odor from his left plantar foot ulcer for the past 3 days with an associated increase in drainage. In addition he has not been offloading his foot as instructed and is going barefoot at home. 06/16/16 Seen by Mitch Cota PA-C. The patient reports that he is walking barefoot in the house and only wears shoes outside the house. His left foot diabetic ulcer drainage has been stable. 06/02/16 Seen by Mitch Cota PA-C. The patient reports that he is due to have a new orthotic fitted for his deformed left foot to further offload his chronic left foot ulcer. He reports stable drainage from this ulcer. 05/27/16 Seen by Mitch Cota PA-C. The patient reports that he now has a new wound near his chronic left plantar foot diabetic ulcer. The new wound began spontaneously and was noted today. His chronic ulcer has had stable drainage. 05/19/16. Seen by Dr. Howe. The patient does not report significant drainage associated with the chronic left plant foot diabetic ulcer over the past week and he states his blood sugars are well controlled with most below 150. 05/12/16. Seen by Dr. Howe. The patient reports some new pain along the right foot surgical scar but no swelling or drainage from the site. He does not recall injuring the foot and feels he may have been more active over the past week. He does not report significant or drainage associated with the left plantar foot diabetic ulcer and states he's not been able to check his blood sugars due to the fact he ran out of glucometer strips this past week. His blood sugar today is 280. 04/11/16. Seen by Dr. Howe. The patient does not report pain or drainage associated with the chronic right lateral foot diabetic ulcer of the past week. He states his blood sugars are consistently below 150 and he is wearing his offloading shoe is recommended. 04/04/16. Seen by Dr. Howe. 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 He states his blood sugars are mostly below 150 and he's offloading using a surgical offloading shoe. He's now off of antibiotics and is here today with his granddaughter who's assisting with his care. 03/31/16 Seen by Mitch Cota PA-C. The patient has returned from [facility] where he had a 4th ray amputation performed to his right foot. He reports that he was supposed to have follow up appointments with surgery, cardiology and wound care but has not attended any of these appointments due to transportation difficulties. He is unsure of when his sutures are supposed to be removed. 02/28/16 Seen by Mitch Cota PA-C. The patient was seen at [facility] and evaluated by Dr. Monae on an urgent basis as arranged by Dr. Howe at his last visit. The patient reports that Dr. Monae wanted to urgently take him to surgery but the patient would prefer to have Dr. Garcia do it and refused admission to the hospital. 02/21/[address] Howe. The patient does not report pain or significant drainage associated with the Alonzo grade 3 right lateral foot diabetic ulcer and he saw Dr. Garcia , podiatry, this morning who reportedly states she's not able to perform any additional debridement until his right leg vascular status is further evaluated. He had an arterial Doppler scheduled yesterday however both the patient and his son state they were unaware of the appointment. He started taking his Augmentin, which is treating the MSSA and Strep viridans culture from 02/15/16, following the last visit as recommended, states his blood sugars have been consistently below 150 over the past week, and he's offloading by wearing a surgical shoe and significantly limiting his walking. Of note, he's still on supplemental oxygen following his recent hospital discharge and gets short of breath on minimal exertion. Please see my note below from his last visit regarding details of the admission and amputation. 02/15/[address] Howe. The patient does not report pain associated with the right lateral foot diabetic ulcer. He was discharged 4 days ago following a partial ray amputation of the 5th toe and MT due a progressive foot infection that he states occurred over about 2 days prior to being admitted to the hospital. His wound culture on arrival to the ER was polymicrobial and reported on Group C Strep. He was treated with IV Zosyn during the admission and prescribed Augmentin on discharge however he's not yet picked up the prescription. His blood sugars have been relatively well controlled with most below 150 since discharge. Of note, he also had a non-ST elevation ND post-operatively, acute on chronic renal failure with a Cr of 1.8 on discharge, and acute respiratory failure and continues on supplemental oxygen. 12/27/[address] Howe. The patient does not report drainage or pain associated with the chronic right plantar foot diabetic ulcer over the past week. He's not been applying Kerasal to the associated callus as recommended however he does not have diabetic shoes and a new AFO that he's been wearing. His blood sugars also remain relatively well controlled below 150 consistently. 12/06/[address] Howe. The patient does not report pain or significant drainage from the chronic right plantar foot diabetic ulcer. His blood sugars remain well controlled around 120 and he's now wearing his new diabetic shoes and offloading by limiting his walking significantly. He's also applying Kerasal daily to the right foot calluses as recommended. 11/29/[address] Howe. The patient does not report significant drainage from the chronic right plantar foot diabetic ulcer and he states his blood sugars remain well controlled below 150. He's also wearing his diabetic shoes now and limiting his walking to facilitate offloading. 11/23/[address] Howe. The patient reports moderate drainage but no pain associated with the chronic right plantar foot diabetic ulcer. He continues on doxycycline for a polymicrobial positive wound culture and he states his blood sugars remain well controlled with most below 120. 11/15/[address] Howe. The patient's wound culture from the last visit grew Enterobacter, Staph, and group G Strep however he's not yet picked up his prescription for doxycycline. He has at least moderate serosanquinous drainage on the dressing and states he's been a bit more active this past week as his son has been sick and unable to do the shopping. His blood sugar was also elevated yesterday near 200 but has been relatively well controlled prior to that. 11/08/15 Seen by Mitch Cota PA-C. The patient reports that his son is sick and he has been up on his feet taking care of him and has been unable to stay off of his feet. He has noted more drainage from his right plantar foot diabetic ulcer in the past few days. He also reports that his current shoes with inserts are making a large callous on his right heel and he doesn't feel that they offload his ulcer, so he has been trying to walk on the lateral edge of his right foot to offload his ulcer, and now is having lateral right foot pain as a result. 11/01/[address] Howe. The patient admits to being more active over the past two weeks but states there's only been very minimal drainage from the right plantar foot diabetic ulcer. His blood sugars also remain well controlled below 150 consistently. 10/18/[address] Howe. The patient does not report drainage from the right foot plantar diabetic ulcer however he states he has been more active the past week in terms of walking. His blood sugars also remain well controlled below 150. 10/11/[address] Howe. The patient does not report pain or drainage associated with the right plantar foot nor heel diabetic ulcers. 10/04/[address] Howe. The patient does not report drainage from the right plantar foot diabetic ulcer and he continues to use Kerasal daily for the significant right heel callus. His blood sugars are also well controlled below 120 consistently. 09/27/[address] Howe. The patient reports only minimal drainage from the right plantar foot diabetic ulcer and states his blood sugars continue to improve with most between 120 and 180. He's also applying Kerasal to the bilateral foot calluses daily as we've requested. 09/19/[address] Howe. The patient reports significantly decreased drainage from the right plantar foot diabetic ulcer and he'll complete his course of levofloxacin today that treating the polymicrobial wound culture from 09/04/15. His blood sugars are also much better controlled over the past week with most around 150 and very few over 200. 09/12/[address] Howe. The patient continues to report significant drainage from the right plantar diabetic foot ulcer and his wound culture from 09/04/15 grew Strep , Providencia, and Neisseria species. He's now on levofloxacin and does not report adverse effects. He's also no longer experiencing severe hypoglycemic episodes and is working closely with is PCP on adjusting his insulin regimen. His blood sugars due tend to remain over 200 however. 09/07/[address] Howe. The patient continues to report blood sugars as low as the 40's since our visit last week. Regarding his foot ulcers, he reports continued foul smelling drainage from the right foot diabetic ulcer but none from right heel or left foot diabetic ulcer. His blood sugars also may be as high as 300 and he states he's compliant with his diabetes medication regimen and will require as much as 30-40 units of short acting insulin on occasion. He does not report pain in the feet nor fevers or other systemic symptoms. 08/31/[address] Howe. The patient is new to our clinic. On arrival he was not feeling well and was tremulous. The MA checked his blood sugar and is registered 34 which is the lowest the glucometer would read. I spoke with him and he reported feeling very unwell at which time he was urgently transferred to the ER. Of note, he was in the clinic to review bilateral diabetic foot ulcers. He'd also recently lost a son and has been very upset the past week according to staff. Past Medical History This information was obtained from the patient Patient has a medical history of: Chronic Obstructive Pulmonary Disease (COPD) Type II Diabetes (A1c 7.4 on 11/12/2015) PAD Peripheral neuropathy Hypoglycemia CVA Diabetic foot ulcer (Right plantar 1st MTPJ, Alonzo grade II) Coronary Artery Disease (CAD) (s/p ND during admission on 02/04/2016) Lumbar strain CHF Hyperlipidemia CKD stage 3 Gout Diabetic foot ulcer - 02/04/2016 (right lateral foot s/p partial ray amputation; Alonzo grade 3; MSSA and Strep viridans cultured) Complaints and Symptoms This information was obtained from the patient Patient complains of: General Notes: I have reviewed and concur with the Review of Systems and Past Family Social History documents completed by the clinician, I have reviewed and concur with the Wound Assessment document completed by the clinician Cardiovascular (Central): Dyspnea on Exertion Ear/Nose/Mouth/Throat: Hearing Loss / Aid Integumentary (Hair/Skin/Nails): Open Sore Musculoskeletal: Assistive Devices, Deformities Neurological: Loss of Protective Sensation Prior Wound History: Drainage, Erythema, Malodor Patient denies complaints or symptoms related to: Cardiovascular (Central/Peripheral): Intermittent Claudication, Lower extremity (leg) resting pain Constitutional Symptoms (General Health): Chills, Fever Gastrointestinal (GI): Nausea / Vomiting, Stomach/abdominal pain Hematologic/Lymphatic: Bleeding / Clotting Disorders, Bleeding Tendency Musculoskeletal: Muscle Weakness Prior Wound History: Bleeding, Pain Psychiatric: Anxiety, Memory Loss Respiratory: Oxygen Use, Shortness of Breath OBJECTIVE Constitutional BP elevated; Afebrile; Alert and in no distress. Well developed. Alert. Clean appearing.. Height/Length: 72 in (182.88 cm), Weight: 218 lbs (99.09 kgs), BMI: 29.6, Temperature: 98 ? F (36.67 ?C), Pulse: 68 bpm, Respiratory Rate: 18 breaths/min, Blood Pressure: 151/72 mmHg, Capillary Blood Glucose: 147 mg/dl, Pulse Oximetry: 94 %. Vital Signs Notes: Glucose per patient Cardiovascular: Affected extremity exhibits no peripheral edema or cyanosis, is warm, and is well perfused. Capillary refill is less than 2 seconds. Musculoskeletal: Right lateral foot partial amputation. Integumentary (Hair, Skin) No periwound erythema, warmth, or significant drainage. No periwound rashes appreciated or noted otherwise.. Refer to appropriate clinician wound documentation for this visit; right and left foot ulcers extend to subcut with bases partially covered with pink granulation, remainder fibrin and slough. Maceration and callus present in the periwound area; less than on previous review. Wound #11 Left Metatarsal head first is a chronic Alonzo Grade 2 Diabetic Ulcer and has received a status of Not Healed. Subsequent wound encounter measurements are 2.4cm length x 1.6cm width x 0.4cm depth, with an area of 3.84 sq cm and a volume of 1.536 cubic cm. No tunneling has been noted. No sinus tract has been noted. No undermining has been noted. There is a large amount of sero-sanguineous drainage noted which has no odor. The patient reports no wound pain due to the wound being insensate. The wound margin is callus. Wound bed has No epithelialization, No eschar, No slough, Yes bright red, pink, spongy granulation. The periwound skin color is normal. The periwound skin exhibited: Callus, Moist. The periwound skin did not exhibit: Brawny Induration, Edema, Excoriation, Induration, Crepitus, Fluctuance, Friable, Rash, Dry/Scaly, Maceration. The temperature of the periwound skin is WNL. Periwound skin does not exhibit signs or symptoms of infection. Local Pulse is Palpable. Wound #12 Right, Plantar Metatarsal head first is a Alonzo Grade 2 Diabetic Ulcer and has received a status of Not Healed. Subsequent wound encounter measurements are 2.1cm length x 1.4cm width x 0.2cm depth, with an area of 2.94 sq cm and a volume of 0.588 cubic cm. No tunneling has been noted. No sinus tract has been noted. No undermining has been noted. There is a large amount of sanguineous drainage noted which has no odor. The patient reports no wound pain due to the wound being insensate. The wound margin is callus. Wound bed has No epithelialization, No eschar, No slough, Yes bright red, pink, firm granulation. The periwound skin color is normal. The periwound skin exhibited: Callus, Moist , Maceration. The periwound skin did not exhibit: Brawny Induration, Edema, Excoriation, Induration, Crepitus, Fluctuance, Friable, Rash, Dry/Scaly. The temperature of the periwound skin is WNL. Periwound skin does not exhibit signs or symptoms of infection. Local Pulse is Normal. Neurological: Cranial nerves grossly intact with symmetric function normal by informal observation.. ASSESSMENT Active Problems ICD-10 (Encounter Diagnosis) L97.522 - Non-pressure chronic ulcer of other part of left foot with fat layer exposed (Encounter Diagnosis) L97.512 - Non-pressure chronic ulcer of other part of right foot with fat layer exposed (Encounter Diagnosis) E11.621 - Type 2 diabetes mellitus with foot ulcer (Encounter Diagnosis) L08.89 - Other specified local infections of the skin and subcutaneous tissue PROCEDURES Wound #11 Wound #11 (Diabetic Ulcer) is located on the left metatarsal head first. A skin/ subcutaneous tissue level surgical debridement with a total area debrided of 3.84 sq cm was performed by Nando Howe MD. Subcutaneous was removed along with devitalized tissue: callus and slough. The following instrument(s) were used: curette. Pain control was achieved using 4% Lido. A time out was conducted prior to the start of the procedure. A minimal amount of bleeding was controlled with silver nitrate. The procedure was tolerated well with a pain level of 0 throughout and a pain level of 0 following the procedure. Post Debridement Measurements: 2.4cm length x 1.6cm width x 0.5cm depth; with an area of 3.84 sq cm and a volume of 1.92 cubic cm; Wound #12 Wound #12 (Diabetic Ulcer) is located on the right, plantar metatarsal head first. A skin/subcutaneous tissue level surgical debridement with a total area debrided of 2.94 sq cm was performed by Nando Howe MD. Subcutaneous was removed along with devitalized tissue: slough. The following instrument(s) were used: curette. Pain control was achieved using 4% Lido. A time out was conducted prior to the start of the procedure. A minimal amount of bleeding was controlled with n/a. The procedure was tolerated well with a pain level of 0 throughout and a pain level of 0 following the procedure. Post Debridement Measurements: 2.1cm length x 1.4cm width x 0.3cm depth; with an area of 2.94 sq cm and a volume of 0.882 cubic cm; Additional Information Muscle fascia or bone removed and sent to pathology?: No Muscle fascia or bone removed and sent to pathology?: No PLAN Wound Orders: Wound #11 Left Metatarsal head first Anesthetic Topical Xylocaine to wound bed. - In clinic only. Cleanser Cleanse Wound: - Normal saline and gauze, may use distilled water at home. May Shower. - Keep covered in shower with cast protector or plastic bag. Topical Treatments Antibiotic/Antimicrobial Ointment/Cream. - Gentamicin Dressings Cover and secure with: - Foam and hypafix tape. Change Dressing: - Daily. Wound #12 Right, Plantar Metatarsal head first Anesthetic Topical Xylocaine to wound bed. - In clinic only. Cleanser Cleanse Wound: - Normal saline and gauze, may use distilled water at home. May Shower. - Keep covered in shower with cast protector or plastic bag. Topical Treatments Antibiotic/Antimicrobial Ointment/Cream. - Gentamicin Dressings Cover and secure with: - Foam and hypafix tape. Change Dressing: - Daily. Additional Orders: Off-Loading Keep weight off: - Both feet as much as possible. Follow-Up Appointments Return Appointment: - - Tuesdays and Fridays. Other information: If you develop fever, chills, increased pain, drainage, redness or swelling please call our office. If after hours, respond to the ER. Should you experience any significant changes in your wound(s) or have any questions regarding your home care instructions please contact the wound center @ [phone]. If after hours, contact your primary care physician or go to the hospital emergency room. - Please see Yuliana for insoles in your hughes boot and tennis shoes. Scribing Attestation I attest, as the nurse, that I scribed these orders for the physician. I've reviewed the clinician's documentation and agree with the evaluation and plan as written. In addition the patient's ulcers demonstrate evidence of non-viable devitalized tissue and they will continue to benefit from sharp debridement to help promote granulation and expedite healing. Also, I'll treat the Staph and Strep positive wound culture with topical gentamicin and we've added a thick, mole skin pad to the left plantar forefoot to help better facilitate offloading. He'll also continue to wear his [employer] boot on the right foot. Electronic Signature(s) Signed By: Date: Nando Howe MD 04/02/2018 13:30:07 Entered By: Nando Howe on 04/02/2018 13:15:00
== END ==
PROVIDERS: Family Provider Physician Assistant Medical; PCP Physician Assistant Medical; Visit Provider Internal Medicine
DX: E11.621 Type 2 diabetes mellitus with foot ulcer (principal); L97.522 Non-pressure chronic ulcer of other part of left foot with fat layer exposed; L97.512 Non-pressure chronic ulcer of other part of right foot with fat layer exposed; A49.1 Streptococcal infection, unspecified site; B95.7 Other staphylococcus as the cause of diseases classified elsewhere
CPT/HCPCS: 11042

== ENCOUNTER → 2018-04-06 10:37 | Outpatient (CLI) | payer MEDICARE, SELFPAY ==
--- NOTE | 2018-04-06 | OV.WND_ITS ---
Progress Note Details Patient Name: Nick Drake Patient Number: [id number] PatientPatientDate: 04/06/2018 Clinician: Rina Bentley Physician / Pricing Clerk: Nando Howe SUBJECTIVE Chief Complaint This information was obtained from the patient Diabetic ulcers to right and left foot. Allergies Minipress (Severity: Severe, Reaction: violent behavior), Vicodin (Severity: Mild, Reaction: itching), nortriptyline (Severity: Moderate), Avandia (Severity: Moderate) HPI This information was obtained from the patient 04/06/18. Seen by Dr. Howe. The patient does not report increased drainage associated with the bilateral plantar 1st MTPJ diabetic ulcers since his last visit. His bilateral arterial Doppler performed in February showed possible clinically significant PAD with a high grade stenosis of the right SFA and possible left common femoral inflow obstruction and bilateral lower leg with monophasic flow noted. He does not report rest pain nor claudication however he' s very limited in his mobility due to the plantar foot diabetic ulcers. 04/02/18. Seen by Dr. Howe. The patient continues to wear his UGASHIK boot to offload the right foot 1st MTPJ diabetic ulcer and address the significant deformity associated with the partial lateral foot amputation and he does not report increased drainage associated with this ulcer nor the left plantar foot diabetic ulcer since his last. His wound culture from the last visit grew Staph and group G Strep and he's not currently on antibiotics. 03/30/18. Seen by Dr. Howe. The patient missed his last two appointments and states over the 24 of March he was wearing socks on his deck and noticed bleeding from the bilateral diabetic foot ulcers. His blood sugars are over 400 today and he's run our of insulin and glucose strips. He does not report pain associated with the ulcers and notes he's not wearing his UGASHIK boot on the right foot at all times as recommended. He has a right partial foot amputation and Charcot deformity of both feet. 03/22/18. Seen by Dr. Howe. The patient continues to wear his UGASHIK boot to offload the right foot 1st MTPJ diabetic ulcer and address the significant deformity associated with the partial lateral foot amputation and he does not report increased drainage associated with this ulcer nor the left plantar foot diabetic ulcer since his last. 03/15/18. Seen by Mitch Cota PA-C. The patient reports that he is compliant with his UGASHIK boot but notes increased bleeding and drainage seen in the boot. 03/11/18. Seen by Mitch Cota PA-C. The patient reports stable drainage from his diabetic foot ulcers. His blood sugars continue to be above 150 this week. 03/04/18. Seen by Dr. Howe. The patient continues to wear his UGASHIK boot to offload the right foot 1st MTPJ diabetic ulcer and address the significant deformity associated with the partial lateral foot amputation and he does not report increased drainage associated with this ulcer nor the left plantar foot diabetic ulcer since his last. He recently completed a course of doxycycline to treat a group G Strep positive culture and is applying iodosorb to the ulcers to help manage the persistent drainage. 03/01/18. Seen by Dr. Howe. The patient continues to wear his UGASHIK boot to offload the right foot 1st MTPJ diabetic ulcer and address the significant deformity associated with the partial lateral foot amputation. He does not report significant drainage associated with this ulcer nor the left plantar foot diabetic ulcer since his last. 02/25/18. Seen by Dr. Howe. The patient will complete his course of doxycycline today that's treating the Staph and group G Strep positive culture taken from the right foot diabetic ulcer. He does not report adverse side effects and nor significant drainage from the ulcer or the left plantar foot diabetic ulcer. 02/22/18. Seen by Dr. Howe. The patient is now on doxycycline for the Staph and group G Strep positive culture taken from the right foot diabetic ulcer last week. He notes some bloody drainage from this site on his dressing today but feels this ulcer and the left foot diabetic ulcer have improved over the past few week. He's offloading the right foot which has a partial lateral amputation using his UGASHIK boot as recommended however he's not using a frame walker. He does not report adverse side effects of the antibiotics nor other acute issues today. 02/18/18. Seen by Dr. Howe. The staff report increased drainage associated with both plantar foot 1st MTPJ diabetic ulcers and the patient reports a malodor from the dressings over the past week. He does not report fevers, feeling unwell, or pain in the feet but states his blood sugars have been a bit elevated in the 180s. He's also wearing his UGASHIK boot as recommended on the right foot but states he does not have enough room in his house to use a knee scooter and does not use his frame walker. 02/11/18. Seen by Dr. Howe. The patient continues to wear his UGASHIK boot to offload the right foot 1st MTPJ diabetic ulcer and address the significant deformity associated with the partial lateral foot amputation. He does not report significant drainage associated with this ulcer nor the left plantar foot diabetic ulcer since his last visit however the nurse states the mole skin dressing was applied inappropriately over the left foot ulcer and was overlying the ulcer itself and soaked with drainage. 02/04/18. Seen by Dr. Howe. The patient continues to wear his UGASHIK boot to offload the right foot 1st MTPJ diabetic ulcer and address the significant deformity associated with the partial lateral foot amputation. He does not report significant drainage associated with this ulcer nor the left plantar foot diabetic ulcer since his last visit. 01/28/2018. Seen by Dr. Howe. The patient is now wearing his UGASHIK boot to offload the right foot 1st MTPJ diabetic ulcer and address the significant deformity associated with the partial lateral foot amputation. He does not report significant drainage associated with this ulcer nor the left plantar foot diabetic ulcer since his last visit. 01/26/18. Seen by Dr. Howe. The patient states he has been without his insulin for over a week which is likely the cause of his blood sugars being around 400 over the past few visits. He has also not contacted his orthotics provider regarding the offloading UGASHIK boot to wear on the right foot noting his significant deformity caused by the partial lateral foot amputation. He has not report increased drainage or other acute changes regarding his bilateral diabetic foot ulcers and will complete his course of doxycycline its treated the recent MSSA positive culture tomorrow. He also reports nausea and one episode of emesis earlier today but not other acute issues. 01/21/2018. Seen by Dr. Howe. The patient arrived today with his right foot dressing upside down. His blood sugars are also over 400. The patient does not report increased drainage associated with the right or left diabetic foot ulcers however states his neuropathic pain has been significant over the past 2 days. 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 Ulcer callus formation. He also continues on doxycycline for he recent MSSA positive wound culture. 01/18/2018. Seen by Dr. Howe. The patient's wound culture from the left foot diabetic ulcer grew MSSA resistant to gentamicin. He is not currently on oral antibiotics and does not report increased drainage from either left right foot diabetic ulcers and is still waiting for his UGASHIK boot to be available to help facilitate better offloading of the right foot noting his partial lateral right foot amputation and severe Charcot deformity. 01/14/18. Seen by Dr. Howe. The patient continues to report moderate drainage from the right and left diabetic foot ulcers over the past few days and he's seen his final inspector motorcyles who's ordered a UGASHIK boot for the right foot which should be available next week. He has severe bilateral Charcot deformities and partial right lateral foot amputation that contributes to the refractory nature of the ulcers and very heavy callus formation. 01/12/18. Seen by Dr. Howe. The patient reports moderate drainage from the right and left diabetic foot ulcers and he's seen his final inspector motorcyles who's ordered a UGASHIK boot for the right foot. He has bilateral partial lateral foot amputations which have resulted in refractory calluses of the bilateral plantar MTPJ's and associated DFU's. His blood have been well controlled and his recent hypoglycemic episodes have resolved. 01/07/18. Seen by Dr. Howe. The patient missed his last 2 appointments due to a GI illness last week and she reports some pain in the lateral aspect of the right forefoot but no increased drainage, swelling, or other acute changes of the diabetic foot ulcer. He also does not report any acute issues regarding the left diabetic foot ulcer. Of note, he has significant deformities of both feet due to partial amputations which have each contributed significantly to severe callus formation and the refractory nature of the ulcers. 01/01/18. Seen by Dr. Howe. The patient continues on clindamycin for the chronic right diabetic foot ulcer infection and it is not reported adverse side effects. He also does not report significant drainage associated with either left or right diabetic foot ulcer since his last visit. 12/28/17. Seen by Dr. Howe. The patient does not report increased drainage associated with either right or left foot diabetic ulcers since his last visit. He continues on clindamycin without reporting adverse side effects to treat the chronic right ulcer infection and his blood sugars are well controlled. Of note, he has been attending clinic twice weekly to optimize management of his recurrent and severe apollo-ulcer calluses that are in part due to his severe Charcot deformities and bilateral partial foot amputations. 12/21/17. Seen by Dr. Howe. The patient reports some drainage associated with the right foot diabetic ulcer since his last visit but none associated with the left foot diabetic ulcer. He completed his course of doxycycline today is treating the recent MSSA positive wound culture and is reported adverse side effects, fevers, feeling unwell. He states his blood sugars continue to be well controlled below 180. 12/15/17. Cinthia Howe. The patient's wound culture from the left plantar foot diabetic ulcer his last visit grew MSSA resistant to gentamicin. He does not report increased drainage or pain from either diabetic foot ulcers since his last visit. 12/10/17. Seen by REN Olea. The patient does not report increased drainage from his bilateral diabetic foot ulcers but does report continued odor. Notes a large amount of callous growth. Wound culture from last week showed MSSA and Diphtheroids. He has been applying topical gentamicin. 12/03/17. Seen by Mitch Cota PA-C. The patient reports increased drainage and odor from his bilateral diabetic foot ulcers. He continues to have elevated blood sugars. 11/26/17. Seen by Mitch Cota PA-C. The patient reports that he has decreased his usage of marijuana which he uses for recreation and to treat his neuropathy. He has not had a ground level fall since decreasing his usage. His blood sugars remain >150 and his ulcers' drainage is stable. 11/20/17. Seen by Mitch Cota PA-C. The patient reports no increase in his ulcer drainage from his bilateral lower extremity diabetic ulcers. He has not scheduled an appointment to see his PCP to address his consistently high blood sugars. 11/13/17. Seen by Mitch Cota PA-C. The patient reports stable drainage from his diabetic foot ulcers and continued difficulty keeping his blood sugars below 150. He also reports not wearing his diabetic shoes when at home. 11/09/17. Seen by Mitch Cota PA-C. The patient reports high blood sugars again this week. He does not report increased drainage though he notes callous formation continues to happen quickly between visits. 11/06/17. Seen by Dr. Howe. The patient does not report increased drainage associated with the chronic bilateral diabetic foot ulcers since the last visit. 11/02/17. Seen by Mitch Cota PA-C. The patient reports no increased drainage from his bilateral diabetic foot ulcers. He is not surprised that his blood sugar is low this morning as he did not eat dinner yesterday or breakfast today, citing mild GI discomfort. 10/30/17. Seen by Dr. Howe. The patient missed a few appointments recently due to our facility power outage however he does not report increased drainage or other acute issues regarding his bilateral first MTPJ plantar foot diabetic ulcers. 10/23/17. Seen by Mitch Cota PA-C. The patient reports that he did not take his insulin, or eat this morning. Drainage from his diabetic foot ulcers has been stable. 10/15/17. Seen by Mitch Cota PA-C. The patient reports high blood sugars this week and stable drainage from his foot ulcers. 10/13/17. Seen by Dr. Howe. The patient does not report increased drainage associated with the bilateral plantar foot diabetic ulcers since his last visit. 10/01/17. Seen by Dr. Howe. The patient does not report increased drainage associated with either left or right plantar foot diabetic ulcers since his last visit. 10/01/17. Seen by Dr. Howe. The patient does not report increased drainage associated with either left or right plantar foot diabetic ulcers since his last visit. 09/28/17. Seen by Dr. Howe. The patient does not report increased drainage associated with either left or right plantar foot diabetic ulcers since his last visit. He has been offloading as recommended as well. 09/24/17. Seen by Dr. Howe. The patient reports some increased drainage associated with the right chronic diabetic foot ulcer but none with the left chronic diabetic foot ulcer since his last visit. His blood sugars have been well controlled and he does not report pain in either feet or fevers or feeling unwell. He had been seen twice weekly due to the recent deterioration of the right foot ulcer and need for frequent debridement of the periulcer callus. 09/16/17. Seen by Dr. Howe. The patient does not report significant drainage associated with the bilateral plantar foot diabetic ulcers since last visit and his blood sugars are well controlled over the past week. 09/11/17. Seen by Dr. Howe. The patient states that the right foot diabetic ulcer bled significantly earlier this week when he got out of the shower. He had his INR checked yesterday and it was 3.5. He does not report increased drainage otherwise from either the left or right foot diabetic ulcers since his last visit. He's been seen as twice weekly for the past 2 weeks due to the very heavy accumulation of callus associated with the right foot ulcer. 09/08/17. Seen by Dr. Howe. The patient does not report increased drainage associated with bilateral foot diabetic ulcers since his last visit. 09/04/17. Seen by Dr. Howe. The patient does not report significant drainage associated with the bilateral plantar foot diabetic ulcers since last visit and his blood sugars are well controlled over the past week. 08/31/17. Seen by Dr. Howe. The patient does not report increased drainage associated with the bilateral plantar foot diabetic ulcers since his last visit and he continues on doxycycline for the positive right foot ulcer wound culture. His blood sugars have been well- controlled for the past week and he has had no further episodes of hypoglycemia. 08/26/17. Seen by Dr. Howe. The patient is now on doxycycline resistant MSSA positive wound culture taken from his right diabetic foot ulcer and does not report other side effects. He has picked up his new diabetic shoes and is wearing them as recommended. His blood sugar today is 58 in clinic and he has recently had his short-acting insulin increased by his primary care provider due to frequent episodes of hyperglycemia. He is scheduled to see his PCP again tomorrow to discuss the changes. 08/18/17. Seen by Mitch Cota PA-C. The patient reports a foul odor from his bilateral foot ulcers. He reports that he is feeling much better after an ER trip for hypoxia and his recent O2 saturation readings have been 100%. 08/06/17. Seen by Dr. Howe. The patient reports feeling unwell along with progressive shortness of breath while at rest over the past week. He says he had a low- grade fever at home today and staff report is O2 sats in low 90s upon arrival. He has a history of COPD also with possible admission for pneumonia within the past year. He is here for review of chronic diabetic foot ulcers that have been relatively stable for the past few weeks. 07/28/17. Seen by Mitch Cota PA-C. The patient reports increased drainage and bleeding from his diabetic foot ulcers. 07/20/17. Seen by Mitch Cota PA-C. The patient reports no increase in ulcer drainage since his last evaluation. 07/16/17. Seen by Mitch Cota PA-C. The patient has recently been in hospital where he had a NON-STEMI. He reports a reduction in drainage and wound odor after starting Augmentin. 07/01/17. Seen by Dr. Howe. The patient does not report significant drainage associated with the chronic bilateral plantar foot diabetic ulcers since his last visit. He will be picking up his new diabetic shoes today noting his partial right lateral foot amputation and multiple bilateral toe amputations plus Charcot deformity of both feet are contributing significantly to the recurrent heavy callus formation in the apollo-ulcer areas. He also states that he has not been covering his feet when he is in the shower despite our recommendation to do so. 06/19/17. Seen by Dr. Howe. The patient does not report significant drainage associated with the chronic bilateral plantar MTPJ diabetic ulcers since his last visit. Of note , the patient's blood sugar is 42 in clinic and was 35 earlier this morning. He's mildly symptomatic and is with his son who states the patient's food intake has been a bit less than usual due to limited funds at the end of the month. The patient also admits to trying to keep his blood sugars below 140 at all times and has had the problem of hypoglycemia in our clinic a number of times over the past year. 06/12/17. Seen by Dr. Howe. The patient does not report significant drainage associated with the chronic bilateral plantar MTPJ diabetic ulcers since his last visit. 06/05/17. Seen by Dr. Howe. The patient does not report significant drainage associated with the chronic bilateral plantar MTPJ diabetic ulcers since his last visit. He continues on Augmentin based on the recent wound culture and does not report adverse side effects. He also was seen by Dr. Garcia and his new diabetic shoes have been ordered noting his significant history of right lateral foot amputation and multiple toe amputations plus bilateral Charcot deformities. 05/29/17. Seen by Dr. Howe. The patient's wound culture from 2 days ago of a new right foot diabetic ulcer grew Streptococcus as well as Staph. He does not report increased drainage from this ulcer nor the chronic left foot diabetic ulcer. He is also not yet been seen by podiatry although we did send the referral over a couple weeks ago. His blood sugars continue to be well controlled and of note he has had extensive amputations of both the lateral aspect of the right foot as well as toes on both feet which has contributed significantly to recurrent callus and diabetic ulcer formation. 05/27/17. Seen by Mitch Cota PA-C. The patient reports a new ulcer to his right great toe that he believes has been continuously present for about a week. He denies any trauma to the area though states he may have been walking more lately. He is insensate and notes no pain, though he has seen purulent drainage in the area and notes a foul odor. 05/12/17. Seen by Dr. Howe. The patient does not report significant drainage associated with the chronic left plantar foot diabetic ulcer and he notes that heavy callus again has formed on the right plantar foot surface at the site of his recently healed diabetic ulcer. He has severe bilateral Charcot deformities along with multiple toe amputations that are contributing significantly to health information and the refractory and recurrent nature of his diabetic foot ulcers. He's also asked for us to address his toe nails today as it's been weeks since they've been trimmed. 05/05/17. Seen by Dr. Howe. The patient presents today with low blood sugars in the 40's and states he is feeling unwell in the waiting room. Upon my review he is lucid and eating and his blood sugars have increased into the 50s. He does not report any new problems regarding his chronic left foot diabetic ulcer and states that he has not discussed his hypoglycemia with his primary care provider yet despite having a number of episodes throughout the month. 04/28/17. Seen by Dr. Howe. The patient reports recurrence of his left plantar foot diabetic ulcer over the past week along with some new drainage that's quite malodorous. He does not report pain in the foot nor fevers nor any acute issues regarding his right lateral foot diabetic ulcer. He states his blood sugars continue to be well controlled with most below 120. 04/21/17. Seen by Dr. Howe. The patient does not report pain or drainage associated with the chronic right foot diabetic ulcers since his last visit. 04/14/17. Seen by Dr. Howe. The patient does not report pain or drainage associated with the chronic right foot diabetic ulcers since his last visit. His work diabetic shoe as recommended noting he is a partial right foot and right second toe amputations along with a significant Charcot deformity. 04/07/17. Seen by Dr. Howe. The patient does not report significant drainage or pain associated with the chronic right lower leg diabetic ulcers since his last visit. He snoring softly and she was recommended and reports his blood sugars have been well controlled. Of note, his significant deformity of the right foot including partial lateral amputation as well as second toe amputation and a significant Charcot deformity. 04/02/17. Seen by Dr. Howe. The patient reports that a coin accidentally fell into his right lower leg total contact cast a couple days ago. The staff found a johnson upon removing the cast as well as a new ulcer over the lateral aspect of the right foot. The patient does not report pain at the site nor does staff report significant drainage associated with new ulcer nor the chronic right plantar foot diabetic ulcer. The patient's blood sugars continue to be well controlled and he has no other acute complaints at this time. 03/28/17. Seen by Mitch Cota PA-C. The patient's recent wound culture demonstrated no growth. He has not noted increased drainage since his last evaluation. 03/23/17. Seen by Mitch Cota PA-C. The patient reports no increase in right foot ulcer drainage since his last evaluation. In addition his wound culture demonstrated no growth. 03/17/17. Seen by Dr. Howe. The patient does not report increased drainage associated with the chronic right first MTPJ diabetic ulcer.He completed his course of antibiotics that was treating the recent positive wound culture and does not report adverse side effects. He continues offload with a surgical shoe as well. 03/09/17. Seen by Dr. Howe. The patient does not report pain or significant drainage associated with the recurrent right foot diabetic ulcer. His culture of the ulcer was positive for a staph organism and Acinetobacter however he's not yet been started on antibiotics. He states his blood sugars continue to be well-controlled with most below 150. 03/02/17. Seen by Mitch Cota PA-C. The patient reports no improvement in drainage from his diabetic ulcer of the right foot. He has noted odor at times coming from the ulcer. 02/23/17. Seen by Mitch Cota PA-C. The patient reports no increase in drainage from his diabetic ulcer of the right foot. 02/09/17. Seen by Mitch Cota PA-C. The patient reports that he has just begun taking Bactrim for his infection of his right foot diabetic ulcer. He reports continued purulent drainage and odor. 02/02/17. Seen by Mitch Cota PA-C. The patient returns to our clinic with a new ulcer of his right first metatarsal head. He reportedly smacked his foot hard on the floor, creating this ulcer, in an attempt to stop an episode of neuropathy. 11/10/16. Seen by Mitch Cota PA-C. The patient returns for evaluation of his recently healed ulcer, fearing that it is open again. He has not seen liquid drainage but fears it is draining under the callous. 11/04/16. Seen by Mitch Cota PA-C. The patient does not report any difficulties with his TCC this week. 10/24/16. Seen by Dr. Howe. The patient does not report any problems regarding his TCC and staff do not repot significant drainage on the dressing overlying the left plantar foot diabetic ulcer. His blood sugars remain well controlled with most below 150. 10/20/16 Seen by Mitch Cota PA-C. The patient is here for placement of a TCC to offload his left plantar foot diabetic ulcer. He notes that the drainage from his ulcer has soaked through the TCC under-layers and almost soaked through the cast. 10/15/16. Seen by Dr. Howe. The patient tolerated his TCC with minimal discomfort noting mild pain in the left 1st toe. The staff do not report significant drainage associated with the chronic left plantar foot diabetic ulcer and he states his blood sugars are mostly below 150. He's now been placed in a TCC to optimize offloading needed to accommodate for the left foot Charcot deformity that's lead to recurrent heavy callus formation in the periulcer area. 10/13/16 Seen by Mitch Cota PA-C. The patient reports no increase in drainage from his left foot diabetic non-pressure ulcer since his last evaluation. 09/29/15 Seen by Mitch Cota PA-C. The patient reports no increase in drainage from his chronic left foot diabetic ulcer. He does voice frustration that his wound is taking so long to heal. 09/19/16. Seen by Dr. Howe. The patient does not report increased drainage or other acute issues regarding his chronic left plantar foot diabetic ulcer since his last visit. 09/12/16. Seen by Dr. Howe. The patient does not report significant drainage associated with the chronic left plantar foot diabetic ulcer over the past week. He's applying Kerasal to the periwound callus as recommended and has limited his walking considerably, in addition to wearing an offloading shoe, to minimize callus formation. His blood sugars also remain well controlled with most below 150 and he continues on Bactrim for an infection of the ulcer without reporting adverse side effects. 09/05/16. Seen by Dr. Howe. The patient returns to clinic with recurrent of his left plantar foot diabetic ulcer that he states reopened about 2 weeks ago. He was placed on Keflex by his PCP yesterday due to the appearance of the ulcer and significant drainage. He states his blood sugars are well controlled and he limits his walking to help facilitate offloading. 07/28/16. Seen by Dr. Howe. The patient does not report significant drainage associated with the chronic left plantar foot diabetic ulcer over the past week. He's applying Kerasal to the periwound callus as recommended and states his blood sugars are consistently below 150. He does report ongoing nausea for the past few weeks and states he's on 3 nausea medications but does not know what's causing it. He's working with his PCP on this problem. 07/15/16 Seen by Mitch Cota PA-C. The patient reports no fever chills or pain from his left foot diabetic ulcer since his last evaluation. 07/10/16. Seen by Dr. Howe. The patient does not report significant drainage associated with the chronic left plantar foot diabetic ulcer over the past week. He's applying Kerasal to the periwound callus as recommended and has limited his walking considerably, in addition to wearing an offloading shoe, to minimize callus formation. 07/08/16 Seen by Mitch Cota PA-C. The patient reports no increase in pain or drainage from his ulcer, though he does report nausea and vomiting. After further review, it appears that his PPI prescription has run out and he stopped it abruptly. He has not had associated fever, chills or lower GI symptoms. His blood sugars have reportedly been above 150 this week. The patient reports that he still has problems with callous formation on his feet and will be seeing podiatry. 07/04/16. Seen by Dr. Howe. The patient does not report significant drainage associated with the chronic left plantar foot diabetic ulcer since his last visit. He does report significant nausea and vomiting over the past week however but does not report fever, cough, or other specific symptoms and feels the nausea has started to improve as of yesterday. He states his blood sugars have been well controlled with most below 150 and he's on Augmentin for the recent MSSA and Strep positive wound culture. He's also been applying Kerasal to the periwound callus as recommended and has been limited in his walking the past week due to illness. 06/23/16 Seeb by Mitch Cota PA-C. The patient reports that he believes he has an infection in his foot because his dog has been sniffing and licking his open ulcer. He believes his dog has a nose for infection. He reports a continuous, strong, foul odor from his left plantar foot ulcer for the past 3 days with an associated increase in drainage. In addition he has not been offloading his foot as instructed and is going barefoot at home. 06/16/16 Seen by Mitch Cota PA-C. The patient reports that he is walking barefoot in the house and only wears shoes outside the house. His left foot diabetic ulcer drainage has been stable. 06/02/16 Seen by Mitch Cota PA-C. The patient reports that he is due to have a new orthotic fitted for his deformed left foot to further offload his chronic left foot ulcer. He reports stable drainage from this ulcer. 05/27/16 Seen by Mitch Cota PA-C. The patient reports that he now has a new wound near his chronic left plantar foot diabetic ulcer. The new wound began spontaneously and was noted today. His chronic ulcer has had stable drainage. 05/19/16. Seen by Dr. Howe. The patient does not report significant drainage associated with the chronic left plant foot diabetic ulcer over the past week and he states his blood sugars are well controlled with most below 150. 05/12/16. Seen by Dr. Howe. The patient reports some new pain along the right foot surgical scar but no swelling or drainage from the site. He does not recall injuring the foot and feels he may have been more active over the past week. He does not report significant or drainage associated with the left plantar foot diabetic ulcer and states he's not been able to check his blood sugars due to the fact he ran out of glucometer strips this past week. His blood sugar today is 280. 04/11/16. Seen by Dr. Howe. The patient does not report pain or drainage associated with the chronic right lateral foot diabetic ulcer of the past week. He states his blood sugars are consistently below 150 and he is wearing his offloading shoe is recommended. 04/04/16. Seen by Dr. Howe. 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 He states his blood sugars are mostly below 150 and he's offloading using a surgical offloading shoe. He's now off of antibiotics and is here today with his granddaughter who's assisting with his care. 03/31/16 Seen by Mitch Cota PA-C. The patient has returned from [facility] where he had a 4th ray amputation performed to his right foot. He reports that he was supposed to have follow up appointments with surgery, cardiology and wound care but has not attended any of these appointments due to transportation difficulties. He is unsure of when his sutures are supposed to be removed. 02/28/16 Seen by Mitch Cota PA-C. The patient was seen at [facility] and evaluated by Dr. Monae on an urgent basis as arranged by Dr. Howe at his last visit. The patient reports that Dr. Monae wanted to urgently take him to surgery but the patient would prefer to have Dr. Garcia do it and refused admission to the hospital. 02/21/[address] Howe. The patient does not report pain or significant drainage associated with the Alonzo grade 3 right lateral foot diabetic ulcer and he saw Dr. Garcia , podiatry, this morning who reportedly states she's not able to perform any additional debridement until his right leg vascular status is further evaluated. He had an arterial Doppler scheduled yesterday however both the patient and his son state they were unaware of the appointment. He started taking his Augmentin, which is treating the MSSA and Strep viridans culture from 02/15/16, following the last visit as recommended, states his blood sugars have been consistently below 150 over the past week, and he's offloading by wearing a surgical shoe and significantly limiting his walking. Of note, he's still on supplemental oxygen following his recent hospital discharge and gets short of breath on minimal exertion. Please see my note below from his last visit regarding details of the admission and amputation. 02/15/[address] Howe. The patient does not report pain associated with the right lateral foot diabetic ulcer. He was discharged 4 days ago following a partial ray amputation of the 5th toe and MT due a progressive foot infection that he states occurred over about 2 days prior to being admitted to the hospital. His wound culture on arrival to the ER was polymicrobial and reported on Group C Strep. He was treated with IV Zosyn during the admission and prescribed Augmentin on discharge however he's not yet picked up the prescription. His blood sugars have been relatively well controlled with most below 150 since discharge. Of note, he also had a non-ST elevation PR post-operatively, acute on chronic renal failure with a Cr of 1.8 on discharge, and acute respiratory failure and continues on supplemental oxygen. 12/27/[address] Howe. The patient does not report drainage or pain associated with the chronic right plantar foot diabetic ulcer over the past week. He's not been applying Kerasal to the associated callus as recommended however he does not have diabetic shoes and a new AFO that he's been wearing. His blood sugars also remain relatively well controlled below 150 consistently. 12/06/[address] Howe. The patient does not report pain or significant drainage from the chronic right plantar foot diabetic ulcer. His blood sugars remain well controlled around 120 and he's now wearing his new diabetic shoes and offloading by limiting his walking significantly. He's also applying Kerasal daily to the right foot calluses as recommended. 11/29/[address] Howe. The patient does not report significant drainage from the chronic right plantar foot diabetic ulcer and he states his blood sugars remain well controlled below 150. He's also wearing his diabetic shoes now and limiting his walking to facilitate offloading. 11/23/[address] Howe. The patient reports moderate drainage but no pain associated with the chronic right plantar foot diabetic ulcer. He continues on doxycycline for a polymicrobial positive wound culture and he states his blood sugars remain well controlled with most below 120. 11/15/[address] Howe. The patient's wound culture from the last visit grew Enterobacter, Staph, and group G Strep however he's not yet picked up his prescription for doxycycline. He has at least moderate serosanquinous drainage on the dressing and states he's been a bit more active this past week as his son has been sick and unable to do the shopping. His blood sugar was also elevated yesterday near 200 but has been relatively well controlled prior to that. 11/08/15 Seen by Mitch Cota PA-C. The patient reports that his son is sick and he has been up on his feet taking care of him and has been unable to stay off of his feet. He has noted more drainage from his right plantar foot diabetic ulcer in the past few days. He also reports that his current shoes with inserts are making a large callous on his right heel and he doesn't feel that they offload his ulcer, so he has been trying to walk on the lateral edge of his right foot to offload his ulcer, and now is having lateral right foot pain as a result. 11/01/[address] Howe. The patient admits to being more active over the past two weeks but states there's only been very minimal drainage from the right plantar foot diabetic ulcer. His blood sugars also remain well controlled below 150 consistently. 10/18/[address] Howe. The patient does not report drainage from the right foot plantar diabetic ulcer however he states he has been more active the past week in terms of walking. His blood sugars also remain well controlled below 150. 10/11/[address] Howe. The patient does not report pain or drainage associated with the right plantar foot nor heel diabetic ulcers. 10/04/[address] Howe. The patient does not report drainage from the right plantar foot diabetic ulcer and he continues to use Kerasal daily for the significant right heel callus. His blood sugars are also well controlled below 120 consistently. 09/27/[address] Howe. The patient reports only minimal drainage from the right plantar foot diabetic ulcer and states his blood sugars continue to improve with most between 120 and 180. He's also applying Kerasal to the bilateral foot calluses daily as we've requested. 09/19/[address] Howe. The patient reports significantly decreased drainage from the right plantar foot diabetic ulcer and he'll complete his course of levofloxacin today that treating the polymicrobial wound culture from 09/04/15. His blood sugars are also much better controlled over the past week with most around 150 and very few over 200. 09/12/[address] Howe. The patient continues to report significant drainage from the right plantar diabetic foot ulcer and his wound culture from 09/04/15 grew Strep , Providencia, and Neisseria species. He's now on levofloxacin and does not report adverse effects. He's also no longer experiencing severe hypoglycemic episodes and is working closely with is PCP on adjusting his insulin regimen. His blood sugars due tend to remain over 200 however. 09/07/[address] Howe. The patient continues to report blood sugars as low as the 40's since our visit last week. Regarding his foot ulcers, he reports continued foul smelling drainage from the right foot diabetic ulcer but none from right heel or left foot diabetic ulcer. His blood sugars also may be as high as 300 and he states he's compliant with his diabetes medication regimen and will require as much as 30-40 units of short acting insulin on occasion. He does not report pain in the feet nor fevers or other systemic symptoms. 08/31/[address] Howe. The patient is new to our clinic. On arrival he was not feeling well and was tremulous. The MA checked his blood sugar and is registered 34 which is the lowest the glucometer would read. I spoke with him and he reported feeling very unwell at which time he was urgently transferred to the ER. Of note, he was in the clinic to review bilateral diabetic foot ulcers. He'd also recently lost a son and has been very upset the past week according to staff. Past Medical History This information was obtained from the patient Patient has a medical history of: Chronic Obstructive Pulmonary Disease (COPD) Type II Diabetes (A1c 7.4 on 11/12/2015) PAD Peripheral neuropathy Hypoglycemia CVA Diabetic foot ulcer (Right plantar 1st MTPJ, Alonzo grade II) Coronary Artery Disease (CAD) (s/p PR during admission on 02/04/2016) Lumbar strain CHF Hyperlipidemia CKD stage 3 Gout Diabetic foot ulcer - 02/04/2016 (right lateral foot s/p partial ray amputation; Alonzo grade 3; MSSA and Strep viridans cultured) Complaints and Symptoms This information was obtained from the patient Patient complains of: General Notes: I have reviewed and concur with the Review of Systems and Past Family Social History documents completed by the clinician, I have reviewed and concur with the Wound Assessment document completed by the clinician Cardiovascular (Central): Dyspnea on Exertion Ear/Nose/Mouth/Throat: Hearing Loss / Aid Integumentary (Hair/Skin/Nails): Open Sore Musculoskeletal: Assistive Devices, Deformities Neurological: Loss of Protective Sensation Prior Wound History: Drainage, Erythema, Malodor Patient denies complaints or symptoms related to: Cardiovascular (Central/Peripheral): Intermittent Claudication, Lower extremity (leg) resting pain Constitutional Symptoms (General Health): Chills, Fever Gastrointestinal (GI): Nausea / Vomiting, Stomach/abdominal pain Hematologic/Lymphatic: Bleeding / Clotting Disorders, Bleeding Tendency Musculoskeletal: Muscle Weakness Prior Wound History: Bleeding, Pain Psychiatric: Anxiety, Memory Loss Respiratory: Oxygen Use, Shortness of Breath OBJECTIVE Constitutional Vital signs reviewed and noted. Well developed. Alert. Clean appearing.. Height/ Length: 72 in (182.88 cm), Weight: 224.8 lbs (102.18 kgs), BMI: 30.5, Temperature: 97.7 ?F ( 36.5 ?C), Pulse: 57 bpm, Respiratory Rate: 18 breaths/min, Blood Pressure: 131/64 mmHg, Capillary Blood Glucose: 151 mg/dl, Pulse Oximetry: 96 %. Vital Signs Notes: Glucose per patient. Ears, Nose, Mouth, and Throat: Mild hearing deficit. Respiratory: No respiratory distress. Even respirations and without use of accessory muscles.. Cardiovascular: 1+ dorsalis pedis and posterior tibial on the right; 2+ on the left. Musculoskeletal: Right lateral foot partial amputation. Integumentary (Hair, Skin) No periwound erythema, warmth, or significant drainage. No periwound rashes appreciated or noted otherwise.. Refer to appropriate clinician wound documentation for this visit; right and left foot ulcers extend to subcut with bases partially covered with pink granulation, remainder fibrin and slough. Moderate amount of callus in the periulcer areas. Wound #11 Left Metatarsal head first is a chronic Alonzo Grade 2 Diabetic Ulcer and has received a status of Not Healed. Subsequent wound encounter measurements are 1.6cm length x 1.1cm width x 0.3cm depth, with an area of 1.76 sq cm and a volume of 0.528 cubic cm. No tunneling has been noted. No sinus tract has been noted. No undermining has been noted. There is a large amount of sero-sanguineous drainage noted which has no odor. The patient reports no wound pain due to the wound being insensate. The wound margin is callus. Wound bed has No epithelialization, No eschar, No slough, Yes bright red, pink, spongy granulation. The periwound skin color is normal. The periwound skin exhibited: Callus, Moist , Maceration. The periwound skin did not exhibit: Brawny Induration, Edema, Excoriation, Induration, Crepitus, Fluctuance, Friable, Rash, Dry/Scaly. The temperature of the periwound skin is WNL. Periwound skin does not exhibit signs or symptoms of infection. Local Pulse is Palpable. Wound #12 Right, Plantar Metatarsal head first is a Alonzo Grade 2 Diabetic Ulcer and has received a status of Not Healed. Subsequent wound encounter measurements are 2cm length x 1.3cm width x 0.2cm depth, with an area of 2.6 sq cm and a volume of 0.52 cubic cm. No tunneling has been noted. No sinus tract has been noted. No undermining has been noted. There is a large amount of sanguineous drainage noted which has no odor. The patient reports no wound pain due to the wound being insensate. The wound margin is callus. Wound bed has No epithelialization, No eschar, No slough, Yes bright red, pink, firm granulation. The periwound skin color is normal. The periwound skin exhibited: Callus, Moist , Maceration. The periwound skin did not exhibit: Brawny Induration, Edema, Excoriation, Induration, Crepitus, Fluctuance, Friable, Rash, Dry/Scaly. The temperature of the periwound skin is WNL. Periwound skin does not exhibit signs or symptoms of infection. Local Pulse is Normal. Neurological: Cranial nerves grossly intact with symmetric function normal by informal observation.. ASSESSMENT Active Problems ICD-10 (Encounter Diagnosis) L97.522 - Non-pressure chronic ulcer of other part of left foot with fat layer exposed (Encounter Diagnosis) L97.512 - Non-pressure chronic ulcer of other part of right foot with fat layer exposed (Encounter Diagnosis) E11.621 - Type 2 diabetes mellitus with foot ulcer (Encounter Diagnosis) I70.203 - Unspecified atherosclerosis of hopi arteries of extremities, bilateral legs PROCEDURES Wound #11 Wound #11 (Diabetic Ulcer) is located on the left metatarsal head first. A skin/ subcutaneous tissue level surgical debridement with a total area debrided of 1.76 sq cm was performed by Nando Howe MD. Subcutaneous was removed along with devitalized tissue: callus and exudate. The following instrument(s) were used: curette. Pain control was achieved using 4% Lido. A time out was conducted prior to the start of the procedure. A moderate amount of bleeding was controlled with silver nitrate. The procedure was tolerated well with a pain level of 0 throughout and a pain level of 0 following the procedure. Post Debridement Measurements: 1.6cm length x 1.1cm width x 0.4cm depth; with an area of 1.76 sq cm and a volume of 0.704 cubic cm; Wound #12 Wound #12 (Diabetic Ulcer) is located on the right, plantar metatarsal head first. A skin/subcutaneous tissue level surgical debridement with a total area debrided of 2.73 sq cm was performed by Nando Howe MD. Subcutaneous was removed along with devitalized tissue: callus and exudate. The following instrument(s) were used: curette. Pain control was achieved using 4% Lido. A time out was conducted prior to the start of the procedure. A moderate amount of bleeding was controlled with silver nitrate. The procedure was tolerated well with a pain level of 0 throughout and a pain level of 0 following the procedure. Post Debridement Measurements: 2.1cm length x 1.3cm width x 0.2cm depth; with an area of 2.73 sq cm and a volume of 0.546 cubic cm; Additional Information Muscle fascia or bone removed and sent to pathology?: No Muscle fascia or bone removed and sent to pathology?: No PLAN Wound Orders: Wound #11 Left Metatarsal head first Anesthetic Topical Xylocaine to wound bed. - In clinic only. Cleanser Cleanse Wound: - Normal saline and gauze, may use distilled water at home. May Shower. - Keep covered in shower with cast protector or plastic bag. Topical Treatments Antibiotic/Antimicrobial Ointment/Cream. - Gentamicin. Dressings Primary dressing: - Mendon donut pad surrounding wound. May leave pad in place during dressing changes. Cover and secure with: - Foam and hypafix tape. Change Dressing: - Daily. Wound #12 Right, Plantar Metatarsal head first Anesthetic Topical Xylocaine to wound bed. - In clinic only. Cleanser Cleanse Wound: - Normal saline and gauze, may use distilled water at home. May Shower. - Keep covered in shower with cast protector or plastic bag. Topical Treatments Antibiotic/Antimicrobial Ointment/Cream. - Gentamicin. Dressings Primary dressing: - Mendon donut pad surrounding wound. May leave pad in place during dressing changes. Cover and secure with: - Foam and hypafix tape. Change Dressing: - Daily. Additional Orders: Off-Loading Keep weight off: - Both feet as much as possible. Follow-Up Appointments Return Appointment: - - Tuesdays and Fridays. Other information: If you develop fever, chills, increased pain, drainage, redness or swelling please call our office. If after hours, respond to the ER. Should you experience any significant changes in your wound(s) or have any questions regarding your home care instructions please contact the wound center @ [phone]. If after hours, contact your primary care physician or go to the hospital emergency room. Scribing Attestation I attest, as the nurse, that I scribed these orders for the physician. General Notes: Please see Yuliana for insoles in your [place] boot and tennis shoes. I've reviewed the clinician's documentation and agree with the evaluation and plan as written. In addition the patient's ulcers demonstrate evidence of non-viable devitalized tissue and they will continue to benefit from sharp debridement to help promote granulation and expedite healing. Also, I'll copy the patient's millstone cleaner on my note today regarding his PAD and possible need for intervention of the right SFA and further review of possible left common femoral inflow obstruction. Electronic Signature(s) Signed By: Date: Nando Howe MD 04/07/2018 07:05:31 Entered By: Nando Howe on 04/06/2018 13:06:24
== END ==
PROVIDERS: Family Provider Physician Assistant Medical; PCP Physician Assistant Medical; Visit Provider Internal Medicine
DX: E11.621 Type 2 diabetes mellitus with foot ulcer (principal); L97.522 Non-pressure chronic ulcer of other part of left foot with fat layer exposed; L97.512 Non-pressure chronic ulcer of other part of right foot with fat layer exposed; I70.203 Unspecified atherosclerosis of native arteries of extremities, bilateral legs
CPT/HCPCS: 11042

== ENCOUNTER → 2018-04-09 09:49 | Outpatient (CLI) | payer MEDICARE, SELFPAY ==
--- NOTE | 2018-04-09 | OV.WND_ITS ---
Progress Note Details Patient Name: Nick Drake Patient Number: [id number] PatientPatientDate: 04/09/2018 Clinician: Mary Rosales Physician / Alarm Field Technician: Nando Howe SUBJECTIVE Chief Complaint This information was obtained from the patient Diabetic ulcers to right and left foot. Allergies Minipress (Severity: Severe, Reaction: violent behavior), Vicodin (Severity: Mild, Reaction: itching), nortriptyline (Severity: Moderate), Avandia (Severity: Moderate) HPI This information was obtained from the patient 04/09/18. Seen by Dr. Howe. The patient does not report increased drainage associated with the bilateral plantar 1st MTPJ diabetic ulcers since his last visit. His blood sugar is 226 today and he admits to eating some candy yesterday. 04/06/18. Seen by Dr. Howe. The patient does not report increased drainage associated with the bilateral plantar 1st MTPJ diabetic ulcers since his last visit. His bilateral arterial Doppler performed in February showed possible clinically significant PAD with a high grade stenosis of the right SFA and possible left common femoral inflow obstruction and bilateral lower leg with monophasic flow noted. He does not report rest pain nor claudication however he' s very limited in his mobility due to the plantar foot diabetic ulcers. 04/02/18. Seen by Dr. Howe. The patient continues to wear his [place] boot to offload the right foot 1st MTPJ diabetic ulcer and address the significant deformity associated with the partial lateral foot amputation and he does not report increased drainage associated with this ulcer nor the left plantar foot diabetic ulcer since his last. His wound culture from the last visit grew Staph and group G Strep and he's not currently on antibiotics. 03/30/18. Seen by Dr. Howe. The patient missed his last two appointments and states over the 24 of March he was wearing socks on his deck and noticed bleeding from the bilateral diabetic foot ulcers. His blood sugars are over 400 today and he's run our of insulin and glucose strips. He does not report pain associated with the ulcers and notes he's not wearing his [place] boot on the right foot at all times as recommended. He has a right partial foot amputation and Charcot deformity of both feet. 03/22/18. Seen by Dr. Howe. The patient continues to wear his [place] boot to offload the right foot 1st MTPJ diabetic ulcer and address the significant deformity associated with the partial lateral foot amputation and he does not report increased drainage associated with this ulcer nor the left plantar foot diabetic ulcer since his last. 03/15/18. Seen by Mitch Cota PA-C. The patient reports that he is compliant with his [place] boot but notes increased bleeding and drainage seen in the boot. 03/11/18. Seen by Mitch Cota PA-C. The patient reports stable drainage from his diabetic foot ulcers. His blood sugars continue to be above 150 this week. 03/04/18. Seen by Dr. Howe. The patient continues to wear his [place] boot to offload the right foot 1st MTPJ diabetic ulcer and address the significant deformity associated with the partial lateral foot amputation and he does not report increased drainage associated with this ulcer nor the left plantar foot diabetic ulcer since his last. He recently completed a course of doxycycline to treat a group G Strep positive culture and is applying iodosorb to the ulcers to help manage the persistent drainage. 03/01/18. Seen by Dr. Howe. The patient continues to wear his [place] boot to offload the right foot 1st MTPJ diabetic ulcer and address the significant deformity associated with the partial lateral foot amputation. He does not report significant drainage associated with this ulcer nor the left plantar foot diabetic ulcer since his last. 02/25/18. Seen by Dr. Howe. The patient will complete his course of doxycycline today that's treating the Staph and group G Strep positive culture taken from the right foot diabetic ulcer. He does not report adverse side effects and nor significant drainage from the ulcer or the left plantar foot diabetic ulcer. 02/22/18. Seen by Dr. Howe. The patient is now on doxycycline for the Staph and group G Strep positive culture taken from the right foot diabetic ulcer last week. He notes some bloody drainage from this site on his dressing today but feels this ulcer and the left foot diabetic ulcer have improved over the past few week. He's offloading the right foot which has a partial lateral amputation using his [place] boot as recommended however he's not using a frame walker. He does not report adverse side effects of the antibiotics nor other acute issues today. 02/18/18. Seen by Dr. Howe. The staff report increased drainage associated with both plantar foot 1st MTPJ diabetic ulcers and the patient reports a malodor from the dressings over the past week. He does not report fevers, feeling unwell, or pain in the feet but states his blood sugars have been a bit elevated in the 180s. He's also wearing his [place] boot as recommended on the right foot but states he does not have enough room in his house to use a knee scooter and does not use his frame walker. 02/11/18. Seen by Dr. Howe. The patient continues to wear his [place] boot to offload the right foot 1st MTPJ diabetic ulcer and address the significant deformity associated with the partial lateral foot amputation. He does not report significant drainage associated with this ulcer nor the left plantar foot diabetic ulcer since his last visit however the nurse states the mole skin dressing was applied inappropriately over the left foot ulcer and was overlying the ulcer itself and soaked with drainage. 02/04/18. Seen by Dr. Howe. The patient continues to wear his [place] boot to offload the right foot 1st MTPJ diabetic ulcer and address the significant deformity associated with the partial lateral foot amputation. He does not report significant drainage associated with this ulcer nor the left plantar foot diabetic ulcer since his last visit. 01/28/2018. Seen by Dr. Howe. The patient is now wearing his [place] boot to offload the right foot 1st MTPJ diabetic ulcer and address the significant deformity associated with the partial lateral foot amputation. He does not report significant drainage associated with this ulcer nor the left plantar foot diabetic ulcer since his last visit. 01/26/18. Seen by Dr. Howe. The patient states he has been without his insulin for over a week which is likely the cause of his blood sugars being around 400 over the past few visits. He has also not contacted his orthotics provider regarding the offloading [place] boot to wear on the right foot noting his significant deformity caused by the partial lateral foot amputation. He has not report increased drainage or other acute changes regarding his bilateral diabetic foot ulcers and will complete his course of doxycycline its treated the recent MSSA positive culture tomorrow. He also reports nausea and one episode of emesis earlier today but not other acute issues. 01/21/2018. Seen by Dr. Howe. The patient arrived today with his right foot dressing upside down. His blood sugars are also over 400. The patient does not report increased drainage associated with the right or left diabetic foot ulcers however states his neuropathic pain has been significant over the past 2 days. 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 Ulcer callus formation. He also continues on doxycycline for he recent MSSA positive wound culture. 01/18/2018. Seen by Dr. Howe. The patient's wound culture from the left foot diabetic ulcer grew MSSA resistant to gentamicin. He is not currently on oral antibiotics and does not report increased drainage from either left right foot diabetic ulcers and is still waiting for his [place] boot to be available to help facilitate better offloading of the right foot noting his partial lateral right foot amputation and severe Charcot deformity. 01/14/18. Seen by Dr. Howe. The patient continues to report moderate drainage from the right and left diabetic foot ulcers over the past few days and he's seen his dental laboratory assistant who's ordered a [place] boot for the right foot which should be available next week. He has severe bilateral Charcot deformities and partial right lateral foot amputation that contributes to the refractory nature of the ulcers and very heavy callus formation. 01/12/18. Seen by Dr. Howe. The patient reports moderate drainage from the right and left diabetic foot ulcers and he's seen his dental laboratory assistant who's ordered a [place] boot for the right foot. He has bilateral partial lateral foot amputations which have resulted in refractory calluses of the bilateral plantar MTPJ's and associated DFU's. His blood have been well controlled and his recent hypoglycemic episodes have resolved. 01/07/18. Seen by Dr. Howe. The patient missed his last 2 appointments due to a GI illness last week and she reports some pain in the lateral aspect of the right forefoot but no increased drainage, swelling, or other acute changes of the diabetic foot ulcer. He also does not report any acute issues regarding the left diabetic foot ulcer. Of note, he has significant deformities of both feet due to partial amputations which have each contributed significantly to severe callus formation and the refractory nature of the ulcers. 01/01/18. Seen by Dr. Howe. The patient continues on clindamycin for the chronic right diabetic foot ulcer infection and it is not reported adverse side effects. He also does not report significant drainage associated with either left or right diabetic foot ulcer since his last visit. 12/28/17. Seen by Dr. Howe. The patient does not report increased drainage associated with either right or left foot diabetic ulcers since his last visit. He continues on clindamycin without reporting adverse side effects to treat the chronic right ulcer infection and his blood sugars are well controlled. Of note, he has been attending clinic twice weekly to optimize management of his recurrent and severe apollo-ulcer calluses that are in part due to his severe Charcot deformities and bilateral partial foot amputations. 12/21/17. Seen by Dr. Howe. The patient reports some drainage associated with the right foot diabetic ulcer since his last visit but none associated with the left foot diabetic ulcer. He completed his course of doxycycline today is treating the recent MSSA positive wound culture and is reported adverse side effects, fevers, feeling unwell. He states his blood sugars continue to be well controlled below 180. 12/15/17. Cinthia Howe. The patient's wound culture from the left plantar foot diabetic ulcer his last visit grew MSSA resistant to gentamicin. He does not report increased drainage or pain from either diabetic foot ulcers since his last visit. 12/10/17. Seen by REN Olea. The patient does not report increased drainage from his bilateral diabetic foot ulcers but does report continued odor. Notes a large amount of callous growth. Wound culture from last week showed MSSA and Diphtheroids. He has been applying topical gentamicin. 12/03/17. Seen by Mitch Cota PA-C. The patient reports increased drainage and odor from his bilateral diabetic foot ulcers. He continues to have elevated blood sugars. 11/26/17. Seen by Mitch Cota PA-C. The patient reports that he has decreased his usage of marijuana which he uses for recreation and to treat his neuropathy. He has not had a ground level fall since decreasing his usage. His blood sugars remain >150 and his ulcers' drainage is stable. 11/20/17. Seen by Mitch Cota PA-C. The patient reports no increase in his ulcer drainage from his bilateral lower extremity diabetic ulcers. He has not scheduled an appointment to see his PCP to address his consistently high blood sugars. 11/13/17. Seen by Mitch Cota PA-C. The patient reports stable drainage from his diabetic foot ulcers and continued difficulty keeping his blood sugars below 150. He also reports not wearing his diabetic shoes when at home. 11/09/17. Seen by Mitch Cota PA-C. The patient reports high blood sugars again this week. He does not report increased drainage though he notes callous formation continues to happen quickly between visits. 11/06/17. Seen by Dr. Howe. The patient does not report increased drainage associated with the chronic bilateral diabetic foot ulcers since the last visit. 11/02/17. Seen by Mitch Cota PA-C. The patient reports no increased drainage from his bilateral diabetic foot ulcers. He is not surprised that his blood sugar is low this morning as he did not eat dinner yesterday or breakfast today, citing mild GI discomfort. 10/30/17. Seen by Dr. Howe. The patient missed a few appointments recently due to our facility power outage however he does not report increased drainage or other acute issues regarding his bilateral first MTPJ plantar foot diabetic ulcers. 10/23/17. Seen by Mitch Cota PA-C. The patient reports that he did not take his insulin, or eat this morning. Drainage from his diabetic foot ulcers has been stable. 10/15/17. Seen by Mitch Cota PA-C. The patient reports high blood sugars this week and stable drainage from his foot ulcers. 10/13/17. Seen by Dr. Hwoe. The patient does not report increased drainage associated with the bilateral plantar foot diabetic ulcers since his last visit. 10/01/17. Seen by Dr. Howe. The patient does not report increased drainage associated with either left or right plantar foot diabetic ulcers since his last visit. 10/01/17. Seen by Dr. Howe. The patient does not report increased drainage associated with either left or right plantar foot diabetic ulcers since his last visit. 09/28/17. Seen by Dr. Howe. The patient does not report increased drainage associated with either left or right plantar foot diabetic ulcers since his last visit. He has been offloading as recommended as well. 09/24/17. Seen by Dr. Howe. The patient reports some increased drainage associated with the right chronic diabetic foot ulcer but none with the left chronic diabetic foot ulcer since his last visit. His blood sugars have been well controlled and he does not report pain in either feet or fevers or feeling unwell. He had been seen twice weekly due to the recent deterioration of the right foot ulcer and need for frequent debridement of the periulcer callus. 09/16/17. Seen by Dr. Howe. The patient does not report significant drainage associated with the bilateral plantar foot diabetic ulcers since last visit and his blood sugars are well controlled over the past week. 09/11/17. Seen by Dr. Howe. The patient states that the right foot diabetic ulcer bled significantly earlier this week when he got out of the shower. He had his INR checked yesterday and it was 3.5. He does not report increased drainage otherwise from either the left or right foot diabetic ulcers since his last visit. He's been seen as twice weekly for the past 2 weeks due to the very heavy accumulation of callus associated with the right foot ulcer. 09/08/17. Seen by Dr. Howe. The patient does not report increased drainage associated with bilateral foot diabetic ulcers since his last visit. 09/04/17. Seen by Dr. Howe. The patient does not report significant drainage associated with the bilateral plantar foot diabetic ulcers since last visit and his blood sugars are well controlled over the past week. 08/31/17. Seen by Dr. Howe. The patient does not report increased drainage associated with the bilateral plantar foot diabetic ulcers since his last visit and he continues on doxycycline for the positive right foot ulcer wound culture. His blood sugars have been well- controlled for the past week and he has had no further episodes of hypoglycemia. 08/26/17. Seen by Dr. Howe. The patient is now on doxycycline resistant MSSA positive wound culture taken from his right diabetic foot ulcer and does not report other side effects. He has picked up his new diabetic shoes and is wearing them as recommended. His blood sugar today is 58 in clinic and he has recently had his short-acting insulin increased by his primary care provider due to frequent episodes of hyperglycemia. He is scheduled to see his PCP again tomorrow to discuss the changes. 08/18/17. Seen by Mitch Cota PA-C. The patient reports a foul odor from his bilateral foot ulcers. He reports that he is feeling much better after an ER trip for hypoxia and his recent O2 saturation readings have been 100%. 08/06/17. Seen by Dr. Howe. The patient reports feeling unwell along with progressive shortness of breath while at rest over the past week. He says he had a low- grade fever at home today and staff report is O2 sats in low 90s upon arrival. He has a history of COPD also with possible admission for pneumonia within the past year. He is here for review of chronic diabetic foot ulcers that have been relatively stable for the past few weeks. 07/28/17. Seen by Mitch Cota PA-C. The patient reports increased drainage and bleeding from his diabetic foot ulcers. 07/20/17. Seen by Mitch Cota PA-C. The patient reports no increase in ulcer drainage since his last evaluation. 07/16/17. Seen by Mitch Cota PA-C. The patient has recently been in hospital where he had a NON-STEMI. He reports a reduction in drainage and wound odor after starting Augmentin. 07/01/17. Seen by Dr. Howe. The patient does not report significant drainage associated with the chronic bilateral plantar foot diabetic ulcers since his last visit. He will be picking up his new diabetic shoes today noting his partial right lateral foot amputation and multiple bilateral toe amputations plus Charcot deformity of both feet are contributing significantly to the recurrent heavy callus formation in the apollo-ulcer areas. He also states that he has not been covering his feet when he is in the shower despite our recommendation to do so. 06/19/17. Seen by Dr. Howe. The patient does not report significant drainage associated with the chronic bilateral plantar MTPJ diabetic ulcers since his last visit. Of note , the patient's blood sugar is 42 in clinic and was 35 earlier this morning. He's mildly symptomatic and is with his son who states the patient's food intake has been a bit less than usual due to limited funds at the end of the month. The patient also admits to trying to keep his blood sugars below 140 at all times and has had the problem of hypoglycemia in our clinic a number of times over the past year. 06/12/17. Seen by Dr. Howe. The patient does not report significant drainage associated with the chronic bilateral plantar MTPJ diabetic ulcers since his last visit. 06/05/17. Seen by Dr. Howe. The patient does not report significant drainage associated with the chronic bilateral plantar MTPJ diabetic ulcers since his last visit. He continues on Augmentin based on the recent wound culture and does not report adverse side effects. He also was seen by Dr. Garcia and his new diabetic shoes have been ordered noting his significant history of right lateral foot amputation and multiple toe amputations plus bilateral Charcot deformities. 05/29/17. Seen by Dr. Howe. The patient's wound culture from 2 days ago of a new right foot diabetic ulcer grew Streptococcus as well as Staph. He does not report increased drainage from this ulcer nor the chronic left foot diabetic ulcer. He is also not yet been seen by podiatry although we did send the referral over a couple weeks ago. His blood sugars continue to be well controlled and of note he has had extensive amputations of both the lateral aspect of the right foot as well as toes on both feet which has contributed significantly to recurrent callus and diabetic ulcer formation. 05/27/17. Seen by Mitch Cota PA-C. The patient reports a new ulcer to his right great toe that he believes has been continuously present for about a week. He denies any trauma to the area though states he may have been walking more lately. He is insensate and notes no pain, though he has seen purulent drainage in the area and notes a foul odor. 05/12/17. Seen by Dr. Howe. The patient does not report significant drainage associated with the chronic left plantar foot diabetic ulcer and he notes that heavy callus again has formed on the right plantar foot surface at the site of his recently healed diabetic ulcer. He has severe bilateral Charcot deformities along with multiple toe amputations that are contributing significantly to health information and the refractory and recurrent nature of his diabetic foot ulcers. He's also asked for us to address his toe nails today as it's been weeks since they've been trimmed. 05/05/17. Seen by Dr. Howe. The patient presents today with low blood sugars in the 40's and states he is feeling unwell in the waiting room. Upon my review he is lucid and eating and his blood sugars have increased into the 50s. He does not report any new problems regarding his chronic left foot diabetic ulcer and states that he has not discussed his hypoglycemia with his primary care provider yet despite having a number of episodes throughout the month. 04/28/17. Seen by Dr. Howe. The patient reports recurrence of his left plantar foot diabetic ulcer over the past week along with some new drainage that's quite malodorous. He does not report pain in the foot nor fevers nor any acute issues regarding his right lateral foot diabetic ulcer. He states his blood sugars continue to be well controlled with most below 120. 04/21/17. Seen by Dr. Howe. The patient does not report pain or drainage associated with the chronic right foot diabetic ulcers since his last visit. 04/14/17. Seen by Dr. Howe. The patient does not report pain or drainage associated with the chronic right foot diabetic ulcers since his last visit. His work diabetic shoe as recommended noting he is a partial right foot and right second toe amputations along with a significant Charcot deformity. 04/07/17. Seen by Dr. Howe. The patient does not report significant drainage or pain associated with the chronic right lower leg diabetic ulcers since his last visit. He snoring softly and she was recommended and reports his blood sugars have been well controlled. Of note, his significant deformity of the right foot including partial lateral amputation as well as second toe amputation and a significant Charcot deformity. 04/02/17. Seen by Dr. Howe. The patient reports that a coin accidentally fell into his right lower leg total contact cast a couple days ago. The staff found a johnson upon removing the cast as well as a new ulcer over the lateral aspect of the right foot. The patient does not report pain at the site nor does staff report significant drainage associated with new ulcer nor the chronic right plantar foot diabetic ulcer. The patient's blood sugars continue to be well controlled and he has no other acute complaints at this time. 03/28/17. Seen by Mitch Cota PA-C. The patient's recent wound culture demonstrated no growth. He has not noted increased drainage since his last evaluation. 03/23/17. Seen by Mitch Cota PA-C. The patient reports no increase in right foot ulcer drainage since his last evaluation. In addition his wound culture demonstrated no growth. 03/17/17. Seen by Dr. Howe. The patient does not report increased drainage associated with the chronic right first MTPJ diabetic ulcer.He completed his course of antibiotics that was treating the recent positive wound culture and does not report adverse side effects. He continues offload with a surgical shoe as well. 03/09/17. Seen by Dr. Howe. The patient does not report pain or significant drainage associated with the recurrent right foot diabetic ulcer. His culture of the ulcer was positive for a staph organism and Acinetobacter however he's not yet been started on antibiotics. He states his blood sugars continue to be well-controlled with most below 150. 03/02/17. Seen by Mitch Cota PA-C. The patient reports no improvement in drainage from his diabetic ulcer of the right foot. He has noted odor at times coming from the ulcer. 02/23/17. Seen by Mitch Cota PA-C. The patient reports no increase in drainage from his diabetic ulcer of the right foot. 02/09/17. Seen by Mitch Cota PA-C. The patient reports that he has just begun taking Bactrim for his infection of his right foot diabetic ulcer. He reports continued purulent drainage and odor. 02/02/17. Seen by Mitch Cota PA-C. The patient returns to our clinic with a new ulcer of his right first metatarsal head. He reportedly smacked his foot hard on the floor, creating this ulcer, in an attempt to stop an episode of neuropathy. 11/10/16. Seen by Mitch Cota PA-C. The patient returns for evaluation of his recently healed ulcer, fearing that it is open again. He has not seen liquid drainage but fears it is draining under the callous. 11/04/16. Seen by Mitch Cota PA-C. The patient does not report any difficulties with his TCC this week. 10/24/16. Seen by Dr. Howe. The patient does not report any problems regarding his TCC and staff do not repot significant drainage on the dressing overlying the left plantar foot diabetic ulcer. His blood sugars remain well controlled with most below 150. 10/20/16 Seen by Mitch Cota PA-C. The patient is here for placement of a TCC to offload his left plantar foot diabetic ulcer. He notes that the drainage from his ulcer has soaked through the TCC under-layers and almost soaked through the cast. 10/15/16. Seen by Dr. Howe. The patient tolerated his TCC with minimal discomfort noting mild pain in the left 1st toe. The staff do not report significant drainage associated with the chronic left plantar foot diabetic ulcer and he states his blood sugars are mostly below 150. He's now been placed in a TCC to optimize offloading needed to accommodate for the left foot Charcot deformity that's lead to recurrent heavy callus formation in the periulcer area. 10/13/16 Seen by Mitch Cota PA-C. The patient reports no increase in drainage from his left foot diabetic non-pressure ulcer since his last evaluation. 09/29/15 Seen by Mitch Cota PA-C. The patient reports no increase in drainage from his chronic left foot diabetic ulcer. He does voice frustration that his wound is taking so long to heal. 09/19/16. Seen by Dr. Howe. The patient does not report increased drainage or other acute issues regarding his chronic left plantar foot diabetic ulcer since his last visit. 09/12/16. Seen by Dr. Howe. The patient does not report significant drainage associated with the chronic left plantar foot diabetic ulcer over the past week. He's applying Kerasal to the periwound callus as recommended and has limited his walking considerably, in addition to wearing an offloading shoe, to minimize callus formation. His blood sugars also remain well controlled with most below 150 and he continues on Bactrim for an infection of the ulcer without reporting adverse side effects. 09/05/16. Seen by Dr. Howe. The patient returns to clinic with recurrent of his left plantar foot diabetic ulcer that he states reopened about 2 weeks ago. He was placed on Keflex by his PCP yesterday due to the appearance of the ulcer and significant drainage. He states his blood sugars are well controlled and he limits his walking to help facilitate offloading. 07/28/16. Seen by Dr. Howe. The patient does not report significant drainage associated with the chronic left plantar foot diabetic ulcer over the past week. He's applying Kerasal to the periwound callus as recommended and states his blood sugars are consistently below 150. He does report ongoing nausea for the past few weeks and states he's on 3 nausea medications but does not know what's causing it. He's working with his PCP on this problem. 07/15/16 Seen by Mitch Cota PA-C. The patient reports no fever chills or pain from his left foot diabetic ulcer since his last evaluation. 07/10/16. Seen by Dr. Howe. The patient does not report significant drainage associated with the chronic left plantar foot diabetic ulcer over the past week. He's applying Kerasal to the periwound callus as recommended and has limited his walking considerably, in addition to wearing an offloading shoe, to minimize callus formation. 07/08/16 Seen by Mitch Cota PA-C. The patient reports no increase in pain or drainage from his ulcer, though he does report nausea and vomiting. After further review, it appears that his PPI prescription has run out and he stopped it abruptly. He has not had associated fever, chills or lower GI symptoms. His blood sugars have reportedly been above 150 this week. The patient reports that he still has problems with callous formation on his feet and will be seeing podiatry. 07/04/16. Seen by Dr. Howe. The patient does not report significant drainage associated with the chronic left plantar foot diabetic ulcer since his last visit. He does report significant nausea and vomiting over the past week however but does not report fever, cough, or other specific symptoms and feels the nausea has started to improve as of yesterday. He states his blood sugars have been well controlled with most below 150 and he's on Augmentin for the recent MSSA and Strep positive wound culture. He's also been applying Kerasal to the periwound callus as recommended and has been limited in his walking the past week due to illness. 06/23/16 Seeb by Mitch Cota PA-C. The patient reports that he believes he has an infection in his foot because his dog has been sniffing and licking his open ulcer. He believes his dog has a nose for infection. He reports a continuous, strong, foul odor from his left plantar foot ulcer for the past 3 days with an associated increase in drainage. In addition he has not been offloading his foot as instructed and is going barefoot at home. 06/16/16 Seen by Mitch Cota PA-C. The patient reports that he is walking barefoot in the house and only wears shoes outside the house. His left foot diabetic ulcer drainage has been stable. 06/02/16 Seen by Mitch Cota PA-C. The patient reports that he is due to have a new orthotic fitted for his deformed left foot to further offload his chronic left foot ulcer. He reports stable drainage from this ulcer. 05/27/16 Seen by Mitch Cota PA-C. The patient reports that he now has a new wound near his chronic left plantar foot diabetic ulcer. The new wound began spontaneously and was noted today. His chronic ulcer has had stable drainage. 05/19/16. Seen by Dr. Howe. The patient does not report significant drainage associated with the chronic left plant foot diabetic ulcer over the past week and he states his blood sugars are well controlled with most below 150. 05/12/16. Seen by Dr. Howe. The patient reports some new pain along the right foot surgical scar but no swelling or drainage from the site. He does not recall injuring the foot and feels he may have been more active over the past week. He does not report significant or drainage associated with the left plantar foot diabetic ulcer and states he's not been able to check his blood sugars due to the fact he ran out of glucometer strips this past week. His blood sugar today is 280. 04/11/16. Seen by Dr. Howe. The patient does not report pain or drainage associated with the chronic right lateral foot diabetic ulcer of the past week. He states his blood sugars are consistently below 150 and he is wearing his offloading shoe is recommended. 04/04/16. Seen by Dr. Howe. 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 He states his blood sugars are mostly below 150 and he's offloading using a surgical offloading shoe. He's now off of antibiotics and is here today with his granddaughter who's assisting with his care. 03/31/16 Seen by Mitch Cota PA-C. The patient has returned from [facility] where he had a 4th ray amputation performed to his right foot. He reports that he was supposed to have follow up appointments with surgery, cardiology and wound care but has not attended any of these appointments due to transportation difficulties. He is unsure of when his sutures are supposed to be removed. 02/28/16 Seen by Mitch Cota PA-C. The patient was seen at [facility] and evaluated by Dr. Monae on an urgent basis as arranged by Dr. Howe at his last visit. The patient reports that Dr. Monae wanted to urgently take him to surgery but the patient would prefer to have Dr. Garcia do it and refused admission to the hospital. 02/21/[address] Howe. The patient does not report pain or significant drainage associated with the Alonzo grade 3 right lateral foot diabetic ulcer and he saw Dr. Garcia , podiatry, this morning who reportedly states she's not able to perform any additional debridement until his right leg vascular status is further evaluated. He had an arterial Doppler scheduled yesterday however both the patient and his son state they were unaware of the appointment. He started taking his Augmentin, which is treating the MSSA and Strep viridans culture from 02/15/16, following the last visit as recommended, states his blood sugars have been consistently below 150 over the past week, and he's offloading by wearing a surgical shoe and significantly limiting his walking. Of note, he's still on supplemental oxygen following his recent hospital discharge and gets short of breath on minimal exertion. Please see my note below from his last visit regarding details of the admission and amputation. 02/15/[address] Howe. The patient does not report pain associated with the right lateral foot diabetic ulcer. He was discharged 4 days ago following a partial ray amputation of the 5th toe and MT due a progressive foot infection that he states occurred over about 2 days prior to being admitted to the hospital. His wound culture on arrival to the ER was polymicrobial and reported on Group C Strep. He was treated with IV Zosyn during the admission and prescribed Augmentin on discharge however he's not yet picked up the prescription. His blood sugars have been relatively well controlled with most below 150 since discharge. Of note, he also had a non-ST elevation VA post-operatively, acute on chronic renal failure with a Cr of 1.8 on discharge, and acute respiratory failure and continues on supplemental oxygen. 12/27/[address] Howe. The patient does not report drainage or pain associated with the chronic right plantar foot diabetic ulcer over the past week. He's not been applying Kerasal to the associated callus as recommended however he does not have diabetic shoes and a new AFO that he's been wearing. His blood sugars also remain relatively well controlled below 150 consistently. 12/06/[address] Howe. The patient does not report pain or significant drainage from the chronic right plantar foot diabetic ulcer. His blood sugars remain well controlled around 120 and he's now wearing his new diabetic shoes and offloading by limiting his walking significantly. He's also applying Kerasal daily to the right foot calluses as recommended. 11/29/[address] Howe. The patient does not report significant drainage from the chronic right plantar foot diabetic ulcer and he states his blood sugars remain well controlled below 150. He's also wearing his diabetic shoes now and limiting his walking to facilitate offloading. 11/23/[address] Howe. The patient reports moderate drainage but no pain associated with the chronic right plantar foot diabetic ulcer. He continues on doxycycline for a polymicrobial positive wound culture and he states his blood sugars remain well controlled with most below 120. 11/15/[address] Howe. The patient's wound culture from the last visit grew Enterobacter, Staph, and group G Strep however he's not yet picked up his prescription for doxycycline. He has at least moderate serosanquinous drainage on the dressing and states he's been a bit more active this past week as his son has been sick and unable to do the shopping. His blood sugar was also elevated yesterday near 200 but has been relatively well controlled prior to that. 11/08/15 Seen by Mitch Cota PA-C. The patient reports that his son is sick and he has been up on his feet taking care of him and has been unable to stay off of his feet. He has noted more drainage from his right plantar foot diabetic ulcer in the past few days. He also reports that his current shoes with inserts are making a large callous on his right heel and he doesn't feel that they offload his ulcer, so he has been trying to walk on the lateral edge of his right foot to offload his ulcer, and now is having lateral right foot pain as a result. 11/01/[address] Howe. The patient admits to being more active over the past two weeks but states there's only been very minimal drainage from the right plantar foot diabetic ulcer. His blood sugars also remain well controlled below 150 consistently. 10/18/[address] Howe. The patient does not report drainage from the right foot plantar diabetic ulcer however he states he has been more active the past week in terms of walking. His blood sugars also remain well controlled below 150. 10/11/[address] Howe. The patient does not report pain or drainage associated with the right plantar foot nor heel diabetic ulcers. 10/04/[address] Howe. The patient does not report drainage from the right plantar foot diabetic ulcer and he continues to use Kerasal daily for the significant right heel callus. His blood sugars are also well controlled below 120 consistently. 09/27/[address] Howe. The patient reports only minimal drainage from the right plantar foot diabetic ulcer and states his blood sugars continue to improve with most between 120 and 180. He's also applying Kerasal to the bilateral foot calluses daily as we've requested. 09/19/[address] Howe. The patient reports significantly decreased drainage from the right plantar foot diabetic ulcer and he'll complete his course of levofloxacin today that treating the polymicrobial wound culture from 09/04/15. His blood sugars are also much better controlled over the past week with most around 150 and very few over 200. 09/12/[address] Howe. The patient continues to report significant drainage from the right plantar diabetic foot ulcer and his wound culture from 09/04/15 grew Strep , Providencia, and Neisseria species. He's now on levofloxacin and does not report adverse effects. He's also no longer experiencing severe hypoglycemic episodes and is working closely with is PCP on adjusting his insulin regimen. His blood sugars due tend to remain over 200 however. 09/07/[address] Howe. The patient continues to report blood sugars as low as the 40's since our visit last week. Regarding his foot ulcers, he reports continued foul smelling drainage from the right foot diabetic ulcer but none from right heel or left foot diabetic ulcer. His blood sugars also may be as high as 300 and he states he's compliant with his diabetes medication regimen and will require as much as 30-40 units of short acting insulin on occasion. He does not report pain in the feet nor fevers or other systemic symptoms. 08/31/[address] Howe. The patient is new to our clinic. On arrival he was not feeling well and was tremulous. The MA checked his blood sugar and is registered 34 which is the lowest the glucometer would read. I spoke with him and he reported feeling very unwell at which time he was urgently transferred to the ER. Of note, he was in the clinic to review bilateral diabetic foot ulcers. He'd also recently lost a son and has been very upset the past week according to staff. Past Medical History This information was obtained from the patient Patient has a medical history of: Chronic Obstructive Pulmonary Disease (COPD) Type II Diabetes (A1c 7.4 on 11/12/2015) PAD Peripheral neuropathy Hypoglycemia CVA Diabetic foot ulcer (Right plantar 1st MTPJ, Alonzo grade II) Coronary Artery Disease (CAD) (s/p VA during admission on 02/04/2016) Lumbar strain CHF Hyperlipidemia CKD stage 3 Gout Diabetic foot ulcer - 02/04/2016 (right lateral foot s/p partial ray amputation; Alonzo grade 3; MSSA and Strep viridans cultured) Complaints and Symptoms This information was obtained from the patient Patient complains of: General Notes: I have reviewed and concur with the Review of Systems and Past Family Social History documents completed by the clinician, I have reviewed and concur with the Wound Assessment document completed by the clinician Cardiovascular (Central): Dyspnea on Exertion Ear/Nose/Mouth/Throat: Hearing Loss / Aid Integumentary (Hair/Skin/Nails): Open Sore Musculoskeletal: Assistive Devices, Deformities Neurological: Loss of Protective Sensation Prior Wound History: Drainage, Erythema, Malodor Patient denies complaints or symptoms related to: Cardiovascular (Central/Peripheral): Intermittent Claudication, Lower extremity (leg) resting pain Constitutional Symptoms (General Health): Chills, Fever Gastrointestinal (GI): Nausea / Vomiting, Stomach/abdominal pain Hematologic/Lymphatic: Bleeding / Clotting Disorders, Bleeding Tendency Musculoskeletal: Muscle Weakness Prior Wound History: Bleeding, Pain Psychiatric: Anxiety, Memory Loss Respiratory: Oxygen Use, Shortness of Breath OBJECTIVE Constitutional BP elevated; Afebrile; Alert and in no distress. Well developed. Alert. Clean appearing.. Height/Length: 72 in (182.88 cm), Weight: 225.6 lbs (102.55 kgs), BMI: 30.6, Temperature: 97.5 ?F (36.39 ?C), Pulse: 559 bpm, Respiratory Rate: 18 breaths/min, Blood Pressure: 137/66 mmHg, Capillary Blood Glucose: 226 mg/dl, Pulse Oximetry: 99 %. Vital Signs Notes: Glucose in clinic. Ears, Nose, Mouth, and Throat: No clinically significant hearing loss on informal examination. Respiratory: No respiratory distress. Even respirations and without use of accessory muscles.. Musculoskeletal: Right lateral foot partial amputation. Integumentary (Hair, Skin) No periwound erythema, warmth, or significant drainage. No periwound rashes appreciated or noted otherwise.. Refer to appropriate clinician wound documentation for this visit; right and left foot ulcers extend to subcut with bases partially covered with pink granulation, remainder fibrin and slough; decreased periulcer callus and maceration. Wound #11 Left Metatarsal head first is a chronic Alonzo Grade 2 Diabetic Ulcer and has received a status of Not Healed. Subsequent wound encounter measurements are 1.5cm length x 1cm width x 0.2cm depth, with an area of 1.5 sq cm and a volume of 0.3 cubic cm. No tunneling has been noted. No sinus tract has been noted. No undermining has been noted. There is a large amount of sero-sanguineous drainage noted which has no odor. The patient reports no wound pain due to the wound being insensate. The wound margin is callus. Wound bed has Yes epithelialization, No eschar, No slough, Yes bright red, pink, spongy granulation. The periwound skin color is normal. The periwound skin exhibited: Callus, Moist , Maceration. The periwound skin did not exhibit: Brawny Induration, Edema, Excoriation, Induration, Crepitus, Fluctuance, Friable, Rash, Dry/Scaly. The temperature of the periwound skin is WNL. Periwound skin does not exhibit signs or symptoms of infection. Local Pulse is Palpable. Wound #12 Right, Plantar Metatarsal head first is a Alonzo Grade 2 Diabetic Ulcer and has received a status of Not Healed. Subsequent wound encounter measurements are 2cm length x 1.1cm width x 0.2cm depth, with an area of 2.2 sq cm and a volume of 0.44 cubic cm. No tunneling has been noted. No sinus tract has been noted. No undermining has been noted. There is a large amount of sanguineous drainage noted which has no odor. The patient reports no wound pain due to the wound being insensate. The wound margin is callus. Wound bed has Yes epithelialization, No eschar, No slough, Yes bright red, pink, firm granulation. The periwound skin color is normal. The periwound skin exhibited: Callus, Moist. The periwound skin did not exhibit: Brawny Induration, Edema, Excoriation, Induration, Crepitus, Fluctuance, Friable, Rash, Dry/Scaly, Maceration. The temperature of the periwound skin is WNL. Periwound skin does not exhibit signs or symptoms of infection. Local Pulse is Normal. Neurological: Cranial nerves grossly intact with symmetric function normal by informal observation.. ASSESSMENT Active Problems ICD-10 (Encounter Diagnosis) L97.522 - Non-pressure chronic ulcer of other part of left foot with fat layer exposed (Encounter Diagnosis) L97.512 - Non-pressure chronic ulcer of other part of right foot with fat layer exposed (Encounter Diagnosis) E11.621 - Type 2 diabetes mellitus with foot ulcer (Encounter Diagnosis) E11.65 - Type 2 diabetes mellitus with hyperglycemia PROCEDURES Wound #11 Wound #11 (Diabetic Ulcer) is located on the left metatarsal head first. A skin/ subcutaneous tissue level surgical debridement with a total area debrided of 1.5 sq cm was performed by Nando Howe MD. Subcutaneous was removed along with devitalized tissue: callus and slough. The following instrument(s) were used: curette. Pain control was achieved using 4% Lido. A time out was conducted prior to the start of the procedure. A moderate amount of bleeding was controlled with silver nitrate. The patient tolerated the procedure with a pain level of 0 throughout and a pain level of 0 following the procedure. Post Debridement Measurements: 1.5cm length x 1cm width x 0.3cm depth; with an area of 1.5 sq cm and a volume of 0.45 cubic cm; Wound #12 Wound #12 (Diabetic Ulcer) is located on the right, plantar metatarsal head first. A skin/subcutaneous tissue level surgical debridement with a total area debrided of 2.2 sq cm was performed by Nando Howe MD. Subcutaneous was removed along with devitalized tissue: callus and slough. The following instrument(s) were used: curette. Pain control was achieved using 4% Lido. A time out was conducted prior to the start of the procedure. A minimal amount of bleeding was controlled with silver nitrate. The procedure was tolerated well with a pain level of 0 throughout and a pain level of 0 following the procedure. Post Debridement Measurements: 2cm length x 1.1cm width x 0.2cm depth; with an area of 2.2 sq cm and a volume of 0.44 cubic cm; PLAN Wound Orders: Wound #11 Left Metatarsal head first Anesthetic Topical Xylocaine to wound bed. - In clinic only. Cleanser Cleanse Wound: - Normal saline and gauze, may use distilled water at home. May Shower. - Keep covered in shower with cast protector or plastic bag. Topical Treatments Antibiotic/Antimicrobial Ointment/Cream. - Gentamicin. Dressings Primary dressing: - [place] donut pad surrounding wound. May leave pad in place during dressing changes. Cover and secure with: - Foam and hypafix tape. Change Dressing: - Daily. Wound #12 Right, Plantar Metatarsal head first Anesthetic Topical Xylocaine to wound bed. - In clinic only. Cleanser Cleanse Wound: - Normal saline and gauze, may use distilled water at home. May Shower. - Keep covered in shower with cast protector or plastic bag. Topical Treatments Antibiotic/Antimicrobial Ointment/Cream. - Gentamicin. Dressings Primary dressing: - [place] donut pad surrounding wound. May leave pad in place during dressing changes. Cover and secure with: - Foam and hypafix tape. Change Dressing: - Daily. Additional Orders: Off-Loading Keep weight off: - Both feet as much as possible. Follow-Up Appointments Return Appointment: - - Thursday04/14/18 Other information: If you develop fever, chills, increased pain, drainage, redness or swelling please call our office. If after hours, respond to the ER. Should you experience any significant changes in your wound(s) or have any questions regarding your home care instructions please contact the wound center @ [phone]. If after hours, contact your primary care physician or go to the hospital emergency room. Scribing Attestation I attest, as the nurse, that I scribed these orders for the physician. I've reviewed the clinician's documentation and agree with the evaluation and plan as written. In addition the patient's ulcers demonstrate evidence of non-viable devitalized tissue and they will continue to benefit from sharp debridement to help promote granulation and expedite healing. Also, the patient's aware of the need to maintain good blood sugar control and we'll continue to monitor this at his visits accordingly. Electronic Signature(s) Signed By: Date: Nando Howe MD 04/09/2018 13:04:12 Entered By: Nando Howe on 04/09/2018 12:11:06
== END ==
PROVIDERS: Family Provider Physician Assistant Medical; PCP Physician Assistant Medical; Visit Provider Internal Medicine
DX: E11.621 Type 2 diabetes mellitus with foot ulcer (principal); L97.522 Non-pressure chronic ulcer of other part of left foot with fat layer exposed; L97.512 Non-pressure chronic ulcer of other part of right foot with fat layer exposed; E11.65 Type 2 diabetes mellitus with hyperglycemia
CPT/HCPCS: 11042

== ENCOUNTER → 2018-04-13 09:02 | Outpatient (CLI) | payer MEDICARE, SELFPAY | PROVIDERS: Family Provider Physician Assistant Medical; PCP Physician Assistant Medical; Visit Provider Internal Medicine | DX: E11.621 Type 2 diabetes mellitus with foot ulcer (principal); L97.522 Non-pressure chronic ulcer of other part of left foot with fat layer exposed; L97.512 Non-pressure chronic ulcer of other part of right foot with fat layer exposed; M21.6X1 Other acquired deformities of right foot | CPT/HCPCS: 11042 ==

== ENCOUNTER → 2018-04-20 08:53 | Outpatient (CLI) | payer MEDICARE, SELFPAY ==
--- NOTE | 2018-04-20 | OV.WND_ITS ---
Progress Note Details Patient Name: Nick Drake Patient Number: [id number] PatientPatientDate: 04/20/2018 Clinician: Rina Bentley Clinician Cosigner: Mary Rosales Physician / Vp Production: Nando Howe SUBJECTIVE Chief Complaint This information was obtained from the patient Diabetic ulcers to right and left foot. Allergies Minipress (Severity: Severe, Reaction: violent behavior), Vicodin (Severity: Mild, Reaction: itching), nortriptyline (Severity: Moderate), Avandia (Severity: Moderate) HPI This information was obtained from the patient 04/20/18. Seen by Dr. Howe. The patient does not report increased drainage associated with the bilateral plantar 1st MTPJ diabetic ulcers since his last visit. Also, his total contact cast was ordered but is not available today. It's to be placed on the right lower leg to better facilitate offloading in light of his partial right lateral foot amputation that's contributing significantly to callus formation and the refractory nature of the right foot ulcer. He also missed his appointment with cardiology on 04/07 to discuss intervention for his bilateral lower leg PAD which is also complicating his wound healing. 04/13/18. Seen by Dr. Howe. The patient does not report increased drainage associated with the bilateral plantar 1st MTPJ diabetic ulcers since his last visit. He states he's wearing his right lower leg [place] boot as recommended which is offloading the ulcer and addressing the partial right foot amputation which contributes considerably to recurrent and heavy callus formation. 04/09/18. Seen by Dr. Howe. The patient does not report increased drainage associated with the bilateral plantar 1st MTPJ diabetic ulcers since his last visit. His blood sugar is 226 today and he admits to eating some candy yesterday. 04/06/18. Seen by Dr. Howe. The patient does not report increased drainage associated with the bilateral plantar 1st MTPJ diabetic ulcers since his last visit. His bilateral arterial Doppler performed in February showed possible clinically significant PAD with a high grade stenosis of the right SFA and possible left common femoral inflow obstruction and bilateral lower leg with monophasic flow noted. He does not report rest pain nor claudication however he' s very limited in his mobility due to the plantar foot diabetic ulcers. 04/02/18. Seen by Dr. Howe. The patient continues to wear his [place] boot to offload the right foot 1st MTPJ diabetic ulcer and address the significant deformity associated with the partial lateral foot amputation and he does not report increased drainage associated with this ulcer nor the left plantar foot diabetic ulcer since his last. His wound culture from the last visit grew Staph and group G Strep and he's not currently on antibiotics. 03/30/18. Seen by Dr. Howe. The patient missed his last two appointments and states over the 24 of March he was wearing socks on his deck and noticed bleeding from the bilateral diabetic foot ulcers. His blood sugars are over 400 today and he's run our of insulin and glucose strips. He does not report pain associated with the ulcers and notes he's not wearing his [place] boot on the right foot at all times as recommended. He has a right partial foot amputation and Charcot deformity of both feet. 03/22/18. Seen by Dr. Howe. The patient continues to wear his [place] boot to offload the right foot 1st MTPJ diabetic ulcer and address the significant deformity associated with the partial lateral foot amputation and he does not report increased drainage associated with this ulcer nor the left plantar foot diabetic ulcer since his last. 03/15/18. Seen by Mitch Cota PA-C. The patient reports that he is compliant with his [place] boot but notes increased bleeding and drainage seen in the boot. 03/11/18. Seen by Mitch Cota PA-C. The patient reports stable drainage from his diabetic foot ulcers. His blood sugars continue to be above 150 this week. 03/04/18. Seen by Dr. Howe. The patient continues to wear his [place] boot to offload the right foot 1st MTPJ diabetic ulcer and address the significant deformity associated with the partial lateral foot amputation and he does not report increased drainage associated with this ulcer nor the left plantar foot diabetic ulcer since his last. He recently completed a course of doxycycline to treat a group G Strep positive culture and is applying iodosorb to the ulcers to help manage the persistent drainage. 03/01/18. Seen by Dr. Howe. The patient continues to wear his [place] boot to offload the right foot 1st MTPJ diabetic ulcer and address the significant deformity associated with the partial lateral foot amputation. He does not report significant drainage associated with this ulcer nor the left plantar foot diabetic ulcer since his last. 02/25/18. Seen by Dr. Howe. The patient will complete his course of doxycycline today that's treating the Staph and group G Strep positive culture taken from the right foot diabetic ulcer. He does not report adverse side effects and nor significant drainage from the ulcer or the left plantar foot diabetic ulcer. 02/22/18. Seen by Dr. Howe. The patient is now on doxycycline for the Staph and group G Strep positive culture taken from the right foot diabetic ulcer last week. He notes some bloody drainage from this site on his dressing today but feels this ulcer and the left foot diabetic ulcer have improved over the past few week. He's offloading the right foot which has a partial lateral amputation using his [place] boot as recommended however he's not using a frame walker. He does not report adverse side effects of the antibiotics nor other acute issues today. 02/18/18. Seen by Dr. Howe. The staff report increased drainage associated with both plantar foot 1st MTPJ diabetic ulcers and the patient reports a malodor from the dressings over the past week. He does not report fevers, feeling unwell, or pain in the feet but states his blood sugars have been a bit elevated in the 180s. He's also wearing his [place] boot as recommended on the right foot but states he does not have enough room in his house to use a knee scooter and does not use his frame walker. 02/11/18. Seen by Dr. Howe. The patient continues to wear his [place] boot to offload the right foot 1st MTPJ diabetic ulcer and address the significant deformity associated with the partial lateral foot amputation. He does not report significant drainage associated with this ulcer nor the left plantar foot diabetic ulcer since his last visit however the nurse states the mole skin dressing was applied inappropriately over the left foot ulcer and was overlying the ulcer itself and soaked with drainage. 02/04/18. Seen by Dr. Howe. The patient continues to wear his [place] boot to offload the right foot 1st MTPJ diabetic ulcer and address the significant deformity associated with the partial lateral foot amputation. He does not report significant drainage associated with this ulcer nor the left plantar foot diabetic ulcer since his last visit. 01/28/2018. Seen by Dr. Howe. The patient is now wearing his [place] boot to offload the right foot 1st MTPJ diabetic ulcer and address the significant deformity associated with the partial lateral foot amputation. He does not report significant drainage associated with this ulcer nor the left plantar foot diabetic ulcer since his last visit. 01/26/18. Seen by Dr. Howe. The patient states he has been without his insulin for over a week which is likely the cause of his blood sugars being around 400 over the past few visits. He has also not contacted his orthotics provider regarding the offloading [place] boot to wear on the right foot noting his significant deformity caused by the partial lateral foot amputation. He has not report increased drainage or other acute changes regarding his bilateral diabetic foot ulcers and will complete his course of doxycycline its treated the recent MSSA positive culture tomorrow. He also reports nausea and one episode of emesis earlier today but not other acute issues. 01/21/2018. Seen by Dr. Howe. The patient arrived today with his right foot dressing upside down. His blood sugars are also over 400. The patient does not report increased drainage associated with the right or left diabetic foot ulcers however states his neuropathic pain has been significant over the past 2 days. He also is going to picker box operator his [place] boot today to help facilitate offloading of the right foot diabetic ulcer noted in he also has a partial lateral amputation on his foot that is contributed significantly 2. Ulcer callus formation. He also continues on doxycycline for he recent MSSA positive wound culture. 01/18/2018. Seen by Dr. Howe. The patient's wound culture from the left foot diabetic ulcer grew MSSA resistant to gentamicin. He is not currently on oral antibiotics and does not report increased drainage from either left right foot diabetic ulcers and is still waiting for his [place] boot to be available to help facilitate better offloading of the right foot noting his partial lateral right foot amputation and severe Charcot deformity. 01/14/18. Seen by Dr. Howe. The patient continues to report moderate drainage from the right and left diabetic foot ulcers over the past few days and he's seen his dredge master who's ordered a [place] boot for the right foot which should be available next week. He has severe bilateral Charcot deformities and partial right lateral foot amputation that contributes to the refractory nature of the ulcers and very heavy callus formation. 01/12/18. Seen by Dr. Howe. The patient reports moderate drainage from the right and left diabetic foot ulcers and he's seen his dredge master who's ordered a [place] boot for the right foot. He has bilateral partial lateral foot amputations which have resulted in refractory calluses of the bilateral plantar MTPJ's and associated DFU's. His blood have been well controlled and his recent hypoglycemic episodes have resolved. 01/07/18. Seen by Dr. Howe. The patient missed his last 2 appointments due to a GI illness last week and she reports some pain in the lateral aspect of the right forefoot but no increased drainage, swelling, or other acute changes of the diabetic foot ulcer. He also does not report any acute issues regarding the left diabetic foot ulcer. Of note, he has significant deformities of both feet due to partial amputations which have each contributed significantly to severe callus formation and the refractory nature of the ulcers. 01/01/18. Seen by Dr. Howe. The patient continues on clindamycin for the chronic right diabetic foot ulcer infection and it is not reported adverse side effects. He also does not report significant drainage associated with either left or right diabetic foot ulcer since his last visit. 12/28/17. Seen by Dr. Howe. The patient does not report increased drainage associated with either right or left foot diabetic ulcers since his last visit. He continues on clindamycin without reporting adverse side effects to treat the chronic right ulcer infection and his blood sugars are well controlled. Of note, he has been attending clinic twice weekly to optimize management of his recurrent and severe apollo-ulcer calluses that are in part due to his severe Charcot deformities and bilateral partial foot amputations. 12/21/17. Seen by Dr. Howe. The patient reports some drainage associated with the right foot diabetic ulcer since his last visit but none associated with the left foot diabetic ulcer. He completed his course of doxycycline today is treating the recent MSSA positive wound culture and is reported adverse side effects, fevers, feeling unwell. He states his blood sugars continue to be well controlled below 180. 12/15/17. Cinthia Howe. The patient's wound culture from the left plantar foot diabetic ulcer his last visit grew MSSA resistant to gentamicin. He does not report increased drainage or pain from either diabetic foot ulcers since his last visit. 12/10/17. Seen by REN Olea. The patient does not report increased drainage from his bilateral diabetic foot ulcers but does report continued odor. Notes a large amount of callous growth. Wound culture from last week showed MSSA and Diphtheroids. He has been applying topical gentamicin. 12/03/17. Seen by Mitch Cota PA-C. The patient reports increased drainage and odor from his bilateral diabetic foot ulcers. He continues to have elevated blood sugars. 11/26/17. Seen by Mitch Cota PA-C. The patient reports that he has decreased his usage of marijuana which he uses for recreation and to treat his neuropathy. He has not had a ground level fall since decreasing his usage. His blood sugars remain >150 and his ulcers' drainage is stable. 11/20/17. Seen by Mitch Cota PA-C. The patient reports no increase in his ulcer drainage from his bilateral lower extremity diabetic ulcers. He has not scheduled an appointment to see his PCP to address his consistently high blood sugars. 11/13/17. Seen by Mitch Cota PA-C. The patient reports stable drainage from his diabetic foot ulcers and continued difficulty keeping his blood sugars below 150. He also reports not wearing his diabetic shoes when at home. 11/09/17. Seen by Mitch Cota PA-C. The patient reports high blood sugars again this week. He does not report increased drainage though he notes callous formation continues to happen quickly between visits. 11/06/17. Seen by Dr. Howe. The patient does not report increased drainage associated with the chronic bilateral diabetic foot ulcers since the last visit. 11/02/17. Seen by Mitch Cota PA-C. The patient reports no increased drainage from his bilateral diabetic foot ulcers. He is not surprised that his blood sugar is low this morning as he did not eat dinner yesterday or breakfast today, citing mild GI discomfort. 10/30/17. Seen by Dr. Howe. The patient missed a few appointments recently due to our facility power outage however he does not report increased drainage or other acute issues regarding his bilateral first MTPJ plantar foot diabetic ulcers. 10/23/17. Seen by Mitch Cota PA-C. The patient reports that he did not take his insulin, or eat this morning. Drainage from his diabetic foot ulcers has been stable. 10/15/17. Seen by Mitch Cota PA-C. The patient reports high blood sugars this week and stable drainage from his foot ulcers. 10/13/17. Seen by Dr. Howe. The patient does not report increased drainage associated with the bilateral plantar foot diabetic ulcers since his last visit. 10/01/17. Seen by Dr. Howe. The patient does not report increased drainage associated with either left or right plantar foot diabetic ulcers since his last visit. 10/01/17. Seen by Dr. Howe. The patient does not report increased drainage associated with either left or right plantar foot diabetic ulcers since his last visit. 09/28/17. Seen by Dr. Howe. The patient does not report increased drainage associated with either left or right plantar foot diabetic ulcers since his last visit. He has been offloading as recommended as well. 09/24/17. Seen by Dr. Howe. The patient reports some increased drainage associated with the right chronic diabetic foot ulcer but none with the left chronic diabetic foot ulcer since his last visit. His blood sugars have been well controlled and he does not report pain in either feet or fevers or feeling unwell. He had been seen twice weekly due to the recent deterioration of the right foot ulcer and need for frequent debridement of the periulcer callus. 09/16/17. Seen by Dr. Howe. The patient does not report significant drainage associated with the bilateral plantar foot diabetic ulcers since last visit and his blood sugars are well controlled over the past week. 09/11/17. Seen by Dr. Howe. The patient states that the right foot diabetic ulcer bled significantly earlier this week when he got out of the shower. He had his INR checked yesterday and it was 3.5. He does not report increased drainage otherwise from either the left or right foot diabetic ulcers since his last visit. He's been seen as twice weekly for the past 2 weeks due to the very heavy accumulation of callus associated with the right foot ulcer. 09/08/17. Seen by Dr. Howe. The patient does not report increased drainage associated with bilateral foot diabetic ulcers since his last visit. 09/04/17. Seen by Dr. Howe. The patient does not report significant drainage associated with the bilateral plantar foot diabetic ulcers since last visit and his blood sugars are well controlled over the past week. 08/31/17. Seen by Dr. Howe. The patient does not report increased drainage associated with the bilateral plantar foot diabetic ulcers since his last visit and he continues on doxycycline for the positive right foot ulcer wound culture. His blood sugars have been well- controlled for the past week and he has had no further episodes of hypoglycemia. 08/26/17. Seen by Dr. Howe. The patient is now on doxycycline resistant MSSA positive wound culture taken from his right diabetic foot ulcer and does not report other side effects. He has picked up his new diabetic shoes and is wearing them as recommended. His blood sugar today is 58 in clinic and he has recently had his short-acting insulin increased by his primary care provider due to frequent episodes of hyperglycemia. He is scheduled to see his PCP again tomorrow to discuss the changes. 08/18/17. Seen by Mitch Cota PA-C. The patient reports a foul odor from his bilateral foot ulcers. He reports that he is feeling much better after an ER trip for hypoxia and his recent O2 saturation readings have been 100%. 08/06/17. Seen by Dr. Howe. The patient reports feeling unwell along with progressive shortness of breath while at rest over the past week. He says he had a low- grade fever at home today and staff report is O2 sats in low 90s upon arrival. He has a history of COPD also with possible admission for pneumonia within the past year. He is here for review of chronic diabetic foot ulcers that have been relatively stable for the past few weeks. 07/28/17. Seen by Mitch Cota PA-C. The patient reports increased drainage and bleeding from his diabetic foot ulcers. 07/20/17. Seen by Mitch Cota PA-C. The patient reports no increase in ulcer drainage since his last evaluation. 07/16/17. Seen by Mitch Cota PA-C. The patient has recently been in hospital where he had a NON-STEMI. He reports a reduction in drainage and wound odor after starting Augmentin. 07/01/17. Seen by Dr. Howe. The patient does not report significant drainage associated with the chronic bilateral plantar foot diabetic ulcers since his last visit. He will be picking up his new diabetic shoes today noting his partial right lateral foot amputation and multiple bilateral toe amputations plus Charcot deformity of both feet are contributing significantly to the recurrent heavy callus formation in the apollo-ulcer areas. He also states that he has not been covering his feet when he is in the shower despite our recommendation to do so. 06/19/17. Seen by Dr. Howe. The patient does not report significant drainage associated with the chronic bilateral plantar MTPJ diabetic ulcers since his last visit. Of note , the patient's blood sugar is 42 in clinic and was 35 earlier this morning. He's mildly symptomatic and is with his son who states the patient's food intake has been a bit less than usual due to limited funds at the end of the month. The patient also admits to trying to keep his blood sugars below 140 at all times and has had the problem of hypoglycemia in our clinic a number of times over the past year. 06/12/17. Seen by Dr. Howe. The patient does not report significant drainage associated with the chronic bilateral plantar MTPJ diabetic ulcers since his last visit. 06/05/17. Seen by Dr. Howe. The patient does not report significant drainage associated with the chronic bilateral plantar MTPJ diabetic ulcers since his last visit. He continues on Augmentin based on the recent wound culture and does not report adverse side effects. He also was seen by Dr. Garcia and his new diabetic shoes have been ordered noting his significant history of right lateral foot amputation and multiple toe amputations plus bilateral Charcot deformities. 05/29/17. Seen by Dr. Howe. The patient's wound culture from 2 days ago of a new right foot diabetic ulcer grew Streptococcus as well as Staph. He does not report increased drainage from this ulcer nor the chronic left foot diabetic ulcer. He is also not yet been seen by podiatry although we did send the referral over a couple weeks ago. His blood sugars continue to be well controlled and of note he has had extensive amputations of both the lateral aspect of the right foot as well as toes on both feet which has contributed significantly to recurrent callus and diabetic ulcer formation. 05/27/17. Seen by Mitch Cota PA-C. The patient reports a new ulcer to his right great toe that he believes has been continuously present for about a week. He denies any trauma to the area though states he may have been walking more lately. He is insensate and notes no pain, though he has seen purulent drainage in the area and notes a foul odor. 05/12/17. Seen by Dr. Howe. The patient does not report significant drainage associated with the chronic left plantar foot diabetic ulcer and he notes that heavy callus again has formed on the right plantar foot surface at the site of his recently healed diabetic ulcer. He has severe bilateral Charcot deformities along with multiple toe amputations that are contributing significantly to health information and the refractory and recurrent nature of his diabetic foot ulcers. He's also asked for us to address his toe nails today as it's been weeks since they've been trimmed. 05/05/17. Seen by Dr. Howe. The patient presents today with low blood sugars in the 40's and states he is feeling unwell in the waiting room. Upon my review he is lucid and eating and his blood sugars have increased into the 50s. He does not report any new problems regarding his chronic left foot diabetic ulcer and states that he has not discussed his hypoglycemia with his primary care provider yet despite having a number of episodes throughout the month. 04/28/17. Seen by Dr. Howe. The patient reports recurrence of his left plantar foot diabetic ulcer over the past week along with some new drainage that's quite malodorous. He does not report pain in the foot nor fevers nor any acute issues regarding his right lateral foot diabetic ulcer. He states his blood sugars continue to be well controlled with most below 120. 04/21/17. Seen by Dr. Howe. The patient does not report pain or drainage associated with the chronic right foot diabetic ulcers since his last visit. 04/14/17. Seen by Dr. Howe. The patient does not report pain or drainage associated with the chronic right foot diabetic ulcers since his last visit. His work diabetic shoe as recommended noting he is a partial right foot and right second toe amputations along with a significant Charcot deformity. 04/07/17. Seen by Dr. Howe. The patient does not report significant drainage or pain associated with the chronic right lower leg diabetic ulcers since his last visit. He snoring softly and she was recommended and reports his blood sugars have been well controlled. Of note, his significant deformity of the right foot including partial lateral amputation as well as second toe amputation and a significant Charcot deformity. 04/02/17. Seen by Dr. Howe. The patient reports that a coin accidentally fell into his right lower leg total contact cast a couple days ago. The staff found a johnson upon removing the cast as well as a new ulcer over the lateral aspect of the right foot. The patient does not report pain at the site nor does staff report significant drainage associated with new ulcer nor the chronic right plantar foot diabetic ulcer. The patient's blood sugars continue to be well controlled and he has no other acute complaints at this time. 03/28/17. Seen by Mitch Cota PA-C. The patient's recent wound culture demonstrated no growth. He has not noted increased drainage since his last evaluation. 03/23/17. Seen by Mitch Cota PA-C. The patient reports no increase in right foot ulcer drainage since his last evaluation. In addition his wound culture demonstrated no growth. 03/17/17. Seen by Dr. Howe. The patient does not report increased drainage associated with the chronic right first MTPJ diabetic ulcer.He completed his course of antibiotics that was treating the recent positive wound culture and does not report adverse side effects. He continues offload with a surgical shoe as well. 03/09/17. Seen by Dr. Howe. The patient does not report pain or significant drainage associated with the recurrent right foot diabetic ulcer. His culture of the ulcer was positive for a staph organism and Acinetobacter however he's not yet been started on antibiotics. He states his blood sugars continue to be well-controlled with most below 150. 03/02/17. Seen by Mitch Cota PA-C. The patient reports no improvement in drainage from his diabetic ulcer of the right foot. He has noted odor at times coming from the ulcer. 02/23/17. Seen by Mitch Cota PA-C. The patient reports no increase in drainage from his diabetic ulcer of the right foot. 02/09/17. Seen by Mitch Cota PA-C. The patient reports that he has just begun taking Bactrim for his infection of his right foot diabetic ulcer. He reports continued purulent drainage and odor. 02/02/17. Seen by Mitch Cota PA-C. The patient returns to our clinic with a new ulcer of his right first metatarsal head. He reportedly smacked his foot hard on the floor, creating this ulcer, in an attempt to stop an episode of neuropathy. 11/10/16. Seen by Mitch Cota PA-C. The patient returns for evaluation of his recently healed ulcer, fearing that it is open again. He has not seen liquid drainage but fears it is draining under the callous. 11/04/16. Seen by Mitch Cota PA-C. The patient does not report any difficulties with his TCC this week. 10/24/16. Seen by Dr. Howe. The patient does not report any problems regarding his TCC and staff do not repot significant drainage on the dressing overlying the left plantar foot diabetic ulcer. His blood sugars remain well controlled with most below 150. 10/20/16 Seen by Mitch Cota PA-C. The patient is here for placement of a TCC to offload his left plantar foot diabetic ulcer. He notes that the drainage from his ulcer has soaked through the TCC under-layers and almost soaked through the cast. 10/15/16. Seen by Dr. Howe. The patient tolerated his TCC with minimal discomfort noting mild pain in the left 1st toe. The staff do not report significant drainage associated with the chronic left plantar foot diabetic ulcer and he states his blood sugars are mostly below 150. He's now been placed in a TCC to optimize offloading needed to accommodate for the left foot Charcot deformity that's lead to recurrent heavy callus formation in the periulcer area. 10/13/16 Seen by Mitch Cota PA-C. The patient reports no increase in drainage from his left foot diabetic non-pressure ulcer since his last evaluation. 09/29/15 Seen by iMtch Cota PA-C. The patient reports no increase in drainage from his chronic left foot diabetic ulcer. He does voice frustration that his wound is taking so long to heal. 09/19/16. Seen by Dr. Howe. The patient does not report increased drainage or other acute issues regarding his chronic left plantar foot diabetic ulcer since his last visit. 09/12/16. Seen by Dr. Howe. The patient does not report significant drainage associated with the chronic left plantar foot diabetic ulcer over the past week. He's applying Kerasal to the periwound callus as recommended and has limited his walking considerably, in addition to wearing an offloading shoe, to minimize callus formation. His blood sugars also remain well controlled with most below 150 and he continues on Bactrim for an infection of the ulcer without reporting adverse side effects. 09/05/16. Seen by Dr. Howe. The patient returns to clinic with recurrent of his left plantar foot diabetic ulcer that he states reopened about 2 weeks ago. He was placed on Keflex by his PCP yesterday due to the appearance of the ulcer and significant drainage. He states his blood sugars are well controlled and he limits his walking to help facilitate offloading. 07/28/16. Seen by Dr. Howe. The patient does not report significant drainage associated with the chronic left plantar foot diabetic ulcer over the past week. He's applying Kerasal to the periwound callus as recommended and states his blood sugars are consistently below 150. He does report ongoing nausea for the past few weeks and states he's on 3 nausea medications but does not know what's causing it. He's working with his PCP on this problem. 07/15/16 Seen by Mitch Cota PA-C. The patient reports no fever chills or pain from his left foot diabetic ulcer since his last evaluation. 07/10/16. Seen by Dr. Howe. The patient does not report significant drainage associated with the chronic left plantar foot diabetic ulcer over the past week. He's applying Kerasal to the periwound callus as recommended and has limited his walking considerably, in addition to wearing an offloading shoe, to minimize callus formation. 07/08/16 Seen by Mitch Cota PA-C. The patient reports no increase in pain or drainage from his ulcer, though he does report nausea and vomiting. After further review, it appears that his PPI prescription has run out and he stopped it abruptly. He has not had associated fever, chills or lower GI symptoms. His blood sugars have reportedly been above 150 this week. The patient reports that he still has problems with callous formation on his feet and will be seeing podiatry. 07/04/16. Seen by Dr. Howe. The patient does not report significant drainage associated with the chronic left plantar foot diabetic ulcer since his last visit. He does report significant nausea and vomiting over the past week however but does not report fever, cough, or other specific symptoms and feels the nausea has started to improve as of yesterday. He states his blood sugars have been well controlled with most below 150 and he's on Augmentin for the recent MSSA and Strep positive wound culture. He's also been applying Kerasal to the periwound callus as recommended and has been limited in his walking the past week due to illness. 06/23/16 Seeb by Mitch Cota PA-C. The patient reports that he believes he has an infection in his foot because his dog has been sniffing and licking his open ulcer. He believes his dog has a nose for infection. He reports a continuous, strong, foul odor from his left plantar foot ulcer for the past 3 days with an associated increase in drainage. In addition he has not been offloading his foot as instructed and is going barefoot at home. 06/16/16 Seen by Mitch Cota PA-C. The patient reports that he is walking barefoot in the house and only wears shoes outside the house. His left foot diabetic ulcer drainage has been stable. 06/02/16 Seen by Mitch Cota PA-C. The patient reports that he is due to have a new orthotic fitted for his deformed left foot to further offload his chronic left foot ulcer. He reports stable drainage from this ulcer. 05/27/16 Seen by Mitch Cota PA-C. The patient reports that he now has a new wound near his chronic left plantar foot diabetic ulcer. The new wound began spontaneously and was noted today. His chronic ulcer has had stable drainage. 05/19/16. Seen by Dr. Howe. The patient does not report significant drainage associated with the chronic left plant foot diabetic ulcer over the past week and he states his blood sugars are well controlled with most below 150. 05/12/16. Seen by Dr. Howe. The patient reports some new pain along the right foot surgical scar but no swelling or drainage from the site. He does not recall injuring the foot and feels he may have been more active over the past week. He does not report significant or drainage associated with the left plantar foot diabetic ulcer and states he's not been able to check his blood sugars due to the fact he ran out of glucometer strips this past week. His blood sugar today is 280. 04/11/16. Seen by Dr. Howe. The patient does not report pain or drainage associated with the chronic right lateral foot diabetic ulcer of the past week. He states his blood sugars are consistently below 150 and he is wearing his offloading shoe is recommended. 04/04/16. Seen by Dr. Howe. 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 He states his blood sugars are mostly below 150 and he's offloading using a surgical offloading shoe. He's now off of antibiotics and is here today with his granddaughter who's assisting with his care. 03/31/16 Seen by Mitch Cota PA-C. The patient has returned from [facility] where he had a 4th ray amputation performed to his right foot. He reports that he was supposed to have follow up appointments with surgery, cardiology and wound care but has not attended any of these appointments due to transportation difficulties. He is unsure of when his sutures are supposed to be removed. 02/28/16 Seen by Mitch Cota PA-C. The patient was seen at [facility] and evaluated by Dr. Monae on an urgent basis as arranged by Dr. Howe at his last visit. The patient reports that Dr. Moane wanted to urgently take him to surgery but the patient would prefer to have Dr. Garcia do it and refused admission to the hospital. 02/21/[address] Howe. The patient does not report pain or significant drainage associated with the Alonzo grade 3 right lateral foot diabetic ulcer and he saw Dr. Garcia , podiatry, this morning who reportedly states she's not able to perform any additional debridement until his right leg vascular status is further evaluated. He had an arterial Doppler scheduled yesterday however both the patient and his son state they were unaware of the appointment. He started taking his Augmentin, which is treating the MSSA and Strep viridans culture from 02/15/16, following the last visit as recommended, states his blood sugars have been consistently below 150 over the past week, and he's offloading by wearing a surgical shoe and significantly limiting his walking. Of note, he's still on supplemental oxygen following his recent hospital discharge and gets short of breath on minimal exertion. Please see my note below from his last visit regarding details of the admission and amputation. 02/15/[address] Howe. The patient does not report pain associated with the right lateral foot diabetic ulcer. He was discharged 4 days ago following a partial ray amputation of the 5th toe and MT due a progressive foot infection that he states occurred over about 2 days prior to being admitted to the hospital. His wound culture on arrival to the ER was polymicrobial and reported on Group C Strep. He was treated with IV Zosyn during the admission and prescribed Augmentin on discharge however he's not yet picked up the prescription. His blood sugars have been relatively well controlled with most below 150 since discharge. Of note, he also had a non-ST elevation OH post-operatively, acute on chronic renal failure with a Cr of 1.8 on discharge, and acute respiratory failure and continues on supplemental oxygen. 12/27/[address] Howe. The patient does not report drainage or pain associated with the chronic right plantar foot diabetic ulcer over the past week. He's not been applying Kerasal to the associated callus as recommended however he does not have diabetic shoes and a new AFO that he's been wearing. His blood sugars also remain relatively well controlled below 150 consistently. 12/06/[address] Howe. The patient does not report pain or significant drainage from the chronic right plantar foot diabetic ulcer. His blood sugars remain well controlled around 120 and he's now wearing his new diabetic shoes and offloading by limiting his walking significantly. He's also applying Kerasal daily to the right foot calluses as recommended. 11/29/[address] Howe. The patient does not report significant drainage from the chronic right plantar foot diabetic ulcer and he states his blood sugars remain well controlled below 150. He's also wearing his diabetic shoes now and limiting his walking to facilitate offloading. 11/23/[address] Howe. The patient reports moderate drainage but no pain associated with the chronic right plantar foot diabetic ulcer. He continues on doxycycline for a polymicrobial positive wound culture and he states his blood sugars remain well controlled with most below 120. 11/15/[address] Howe. The patient's wound culture from the last visit grew Enterobacter, Staph, and group G Strep however he's not yet picked up his prescription for doxycycline. He has at least moderate serosanquinous drainage on the dressing and states he's been a bit more active this past week as his son has been sick and unable to do the shopping. His blood sugar was also elevated yesterday near 200 but has been relatively well controlled prior to that. 11/08/15 Seen by Mitch Cota PA-C. The patient reports that his son is sick and he has been up on his feet taking care of him and has been unable to stay off of his feet. He has noted more drainage from his right plantar foot diabetic ulcer in the past few days. He also reports that his current shoes with inserts are making a large callous on his right heel and he doesn't feel that they offload his ulcer, so he has been trying to walk on the lateral edge of his right foot to offload his ulcer, and now is having lateral right foot pain as a result. 11/01/[address] Howe. The patient admits to being more active over the past two weeks but states there's only been very minimal drainage from the right plantar foot diabetic ulcer. His blood sugars also remain well controlled below 150 consistently. 10/18/[address] Howe. The patient does not report drainage from the right foot plantar diabetic ulcer however he states he has been more active the past week in terms of walking. His blood sugars also remain well controlled below 150. 10/11/[address] Howe. The patient does not report pain or drainage associated with the right plantar foot nor heel diabetic ulcers. 10/04/[address] Howe. The patient does not report drainage from the right plantar foot diabetic ulcer and he continues to use Kerasal daily for the significant right heel callus. His blood sugars are also well controlled below 120 consistently. 09/27/[address] Howe. The patient reports only minimal drainage from the right plantar foot diabetic ulcer and states his blood sugars continue to improve with most between 120 and 180. He's also applying Kerasal to the bilateral foot calluses daily as we've requested. 09/19/[address] Howe. The patient reports significantly decreased drainage from the right plantar foot diabetic ulcer and he'll complete his course of levofloxacin today that treating the polymicrobial wound culture from 09/04/15. His blood sugars are also much better controlled over the past week with most around 150 and very few over 200. 09/12/[address] Howe. The patient continues to report significant drainage from the right plantar diabetic foot ulcer and his wound culture from 09/04/15 grew Strep , Providencia, and Neisseria species. He's now on levofloxacin and does not report adverse effects. He's also no longer experiencing severe hypoglycemic episodes and is working closely with is PCP on adjusting his insulin regimen. His blood sugars due tend to remain over 200 however. 09/07/[address] Howe. The patient continues to report blood sugars as low as the 40's since our visit last week. Regarding his foot ulcers, he reports continued foul smelling drainage from the right foot diabetic ulcer but none from right heel or left foot diabetic ulcer. His blood sugars also may be as high as 300 and he states he's compliant with his diabetes medication regimen and will require as much as 30-40 units of short acting insulin on occasion. He does not report pain in the feet nor fevers or other systemic symptoms. 08/31/[address] Howe. The patient is new to our clinic. On arrival he was not feeling well and was tremulous. The MA checked his blood sugar and is registered 34 which is the lowest the glucometer would read. I spoke with him and he reported feeling very unwell at which time he was urgently transferred to the ER. Of note, he was in the clinic to review bilateral diabetic foot ulcers. He'd also recently lost a son and has been very upset the past week according to staff. Past Medical History This information was obtained from the patient Patient has a medical history of: Chronic Obstructive Pulmonary Disease (COPD) Type II Diabetes (A1c 7.4 on 11/12/2015) PAD Peripheral neuropathy Hypoglycemia CVA Diabetic foot ulcer (Right plantar 1st MTPJ, Alonzo grade II) Coronary Artery Disease (CAD) (s/p OH during admission on 02/04/2016) Lumbar strain CHF Hyperlipidemia CKD stage 3 Gout Diabetic foot ulcer - 02/04/2016 (right lateral foot s/p partial ray amputation; Alonzo grade 3; MSSA and Strep viridans cultured) Complaints and Symptoms This information was obtained from the patient Patient complains of: General Notes: I have reviewed and concur with the Review of Systems and Past Family Social History documents completed by the clinician, I have reviewed and concur with the Wound Assessment document completed by the clinician Cardiovascular (Central): Dyspnea on Exertion Ear/Nose/Mouth/Throat: Hearing Loss / Aid Integumentary (Hair/Skin/Nails): Open Sore Musculoskeletal: Assistive Devices, Deformities Neurological: Loss of Protective Sensation Prior Wound History: Drainage, Erythema, Malodor Patient denies complaints or symptoms related to: Cardiovascular (Central/Peripheral): Intermittent Claudication, Lower extremity (leg) resting pain Constitutional Symptoms (General Health): Chills, Fever Gastrointestinal (GI): Nausea / Vomiting, Stomach/abdominal pain Hematologic/Lymphatic: Bleeding / Clotting Disorders, Bleeding Tendency Musculoskeletal: Muscle Weakness Prior Wound History: Bleeding, Pain Psychiatric: Anxiety, Memory Loss Respiratory: Oxygen Use, Shortness of Breath OBJECTIVE Constitutional BP elevated; Afebrile; Alert and in no distress. Well developed. Alert. Clean appearing.. Height/Length: 72 in (182.88 cm), Weight: 219.9 lbs (99.95 kgs), BMI: 29.8, Temperature: 97.8 ?F (36.56 ?C), Pulse: 68 bpm, Respiratory Rate: 18 breaths/min, Blood Pressure: 158/72 mmHg, Capillary Blood Glucose: 66 mg/dl, Pulse Oximetry: 97 %. Vital Signs Notes: Glucose per patient before eating breakfast. Ears, Nose, Mouth, and Throat: Mild hearing deficit. Respiratory: No respiratory distress. Even respirations and without use of accessory muscles.. Cardiovascular: Affected extremity exhibits no peripheral edema or cyanosis, is warm, and is well perfused. Capillary refill is less than 2 seconds. Musculoskeletal: Right lateral foot partial amputation. Integumentary (Hair, Skin) No periwound erythema, warmth, or significant drainage. No periwound rashes appreciated or noted otherwise.. Refer to appropriate clinician wound documentation for this visit; right and left foot ulcers extend to subcut with bases partially covered with pink granulation, remainder fibrin and slough. Significant amount of callus and maceration in the periulcer areas. Wound #11 Left Metatarsal head first is a chronic Alonzo Grade 2 Diabetic Ulcer and has received a status of Not Healed. Subsequent wound encounter measurements are 1.5cm length x 1cm width x 0.3cm depth, with an area of 1.5 sq cm and a volume of 0.45 cubic cm. No tunneling has been noted. No sinus tract has been noted. No undermining has been noted. There is a large amount of sero-sanguineous drainage noted which has no odor. The patient reports no wound pain due to the wound being insensate. The wound margin is callus. Wound bed has Yes epithelialization, No eschar, No slough, Yes bright red, pink, spongy granulation. The periwound skin color is normal. The periwound skin exhibited: Callus, Moist , Maceration. The periwound skin did not exhibit: Brawny Induration, Edema, Excoriation, Induration, Crepitus, Fluctuance, Friable, Rash, Dry/Scaly. The temperature of the periwound skin is WNL. Periwound skin does not exhibit signs or symptoms of infection. Local Pulse is Palpable. Wound #12 Right, Plantar Metatarsal head first is a Alonzo Grade 2 Diabetic Ulcer and has received a status of Not Healed. Subsequent wound encounter measurements are 2cm length x 1cm width x 0.2cm depth, with an area of 2 sq cm and a volume of 0.4 cubic cm. No tunneling has been noted. No sinus tract has been noted. No undermining has been noted. There is a large amount of sero-sanguineous drainage noted which has no odor. The patient reports no wound pain due to the wound being insensate. The wound margin is callus. Wound bed has Yes epithelialization, No eschar, No slough, Yes bright red, pink, spongy granulation. The periwound skin exhibited: Callus, Moist, Maceration, Erythema. The periwound skin did not exhibit: Brawny Induration, Edema, Excoriation, Induration, Crepitus, Fluctuance , Friable, Rash, Dry/Scaly, Atrophie Yola, Cyanosis, Ecchymosis, Hemosiderosis, Pallor, Rubor. The temperature of the periwound skin is WNL. Periwound skin does not exhibit signs or symptoms of infection. Local Pulse is Normal. Neurological: Cranial nerves grossly intact with symmetric function normal by informal observation.. ASSESSMENT Active Problems ICD-10 (Encounter Diagnosis) L97.522 - Non-pressure chronic ulcer of other part of left foot with fat layer exposed (Encounter Diagnosis) L97.512 - Non-pressure chronic ulcer of other part of right foot with fat layer exposed (Encounter Diagnosis) E11.621 - Type 2 diabetes mellitus with foot ulcer (Encounter Diagnosis) M21.6X1 - Other acquired deformities of right foot (Encounter Diagnosis) I70.203 - Unspecified atherosclerosis of squaxin arteries of extremities, bilateral legs PROCEDURES Wound #11 Wound #11 (Diabetic Ulcer) is located on the left metatarsal head first. A skin/ subcutaneous tissue level surgical debridement with a total area debrided of 1.5 sq cm was performed by Nando Howe MD. Subcutaneous was removed along with devitalized tissue: callus and exudate. The following instrument(s) were used: curette. Pain control was achieved using 4% Lido. A time out was conducted prior to the start of the procedure. A moderate amount of bleeding was controlled with silver nitrate. The procedure was tolerated well with a pain level of 0 throughout and a pain level of 0 following the procedure. Post Debridement Measurements: 1.5cm length x 1cm width x 0.4cm depth; with an area of 1.5 sq cm and a volume of 0.6 cubic cm; Wound #12 Wound #12 (Diabetic Ulcer) is located on the right, plantar metatarsal head first. A skin/subcutaneous tissue level surgical debridement with a total area debrided of 2 sq cm was performed by Nando Howe MD. Subcutaneous was removed along with devitalized tissue: callus and exudate. The following instrument(s) were used: curette. Pain control was achieved using 4% Lido. A time out was conducted prior to the start of the procedure. A moderate amount of bleeding was controlled with silver nitrate. The procedure was tolerated well with a pain level of 0 throughout and a pain level of 0 following the procedure. Post Debridement Measurements: 2cm length x 1cm width x 0.3cm depth; with an area of 2 sq cm and a volume of 0.6 cubic cm; Additional Information Muscle fascia or bone removed and sent to pathology?: No Muscle fascia or bone removed and sent to pathology?: No PLAN Wound Orders: Wound #11 Left Metatarsal head first Anesthetic Topical Xylocaine to wound bed. - In clinic only. Cleanser Cleanse Wound: - Normal saline and gauze, may use distilled water at home. May Shower. - Keep covered in shower with cast protector or plastic bag. Topical Treatments Antibiotic/Antimicrobial Ointment/Cream. - Gentamicin. Dressings Primary dressing: - Cameron donut pad surrounding wound. May leave pad in place during dressing changes. Cover and secure with: - Foam and hypafix tape. Change Dressing: - Daily. Wound #12 Right, Plantar Metatarsal head first Anesthetic Topical Xylocaine to wound bed. - In clinic only. Cleanser Cleanse Wound: - Normal saline and gauze, may use distilled water at home. May Shower. - Keep covered in shower with cast protector or plastic bag. Topical Treatments Antibiotic/Antimicrobial Ointment/Cream. - Gentamicin. Dressings Primary dressing: - Cameron donut pad surrounding wound. May leave pad in place during dressing changes. Cover and secure with: - Foam and hypafix tape. Change Dressing: - Daily. Additional Orders: Off-Loading Keep weight off: - Both feet as much as possible. Follow-Up Appointments Return Appointment: - - Tuesdays and Fridays for callus removal, until we receive TCC. Other information: If you develop fever, chills, increased pain, drainage, redness or swelling please call our office. If after hours, respond to the ER. Should you experience any significant changes in your wound(s) or have any questions regarding your home care instructions please contact the wound center @ [phone]. If after hours, contact your primary care physician or go to the hospital emergency room. Scribing Attestation I attest, as the nurse, that I scribed these orders for the physician. I've reviewed the clinician's documentation and agree with the evaluation and plan as written. In addition the patient's ulcers demonstrate evidence of non-viable devitalized tissue and they will continue to benefit from sharp debridement to help promote granulation and expedite healing. Also, we'll plan on placing a right lower leg TCC at his next visit and he'll liaise with his cardiology office to reschedule his PAD appointment. Electronic Signature(s) Signed By: Date: Nando Howe MD 04/21/2018 07:32:51 Entered By: Nando Howe on 04/21/2018 07:30:17
== END ==
PROVIDERS: Family Provider Physician Assistant Medical; PCP Physician Assistant Medical; Visit Provider Internal Medicine
DX: E11.621 Type 2 diabetes mellitus with foot ulcer (principal); L97.522 Non-pressure chronic ulcer of other part of left foot with fat layer exposed; L97.512 Non-pressure chronic ulcer of other part of right foot with fat layer exposed; M21.6X1 Other acquired deformities of right foot; I70.203 Unspecified atherosclerosis of native arteries of extremities, bilateral legs
CPT/HCPCS: 11042

== ENCOUNTER → 2018-04-23 09:18 | Outpatient (CLI) | payer MEDICARE, SELFPAY ==
--- NOTE | 2018-04-23 | OV.WND_ITS ---
Progress Note Details Patient Name: Nick Drake Patient Number: [id number] PatientPatientDate: 04/23/2018 Clinician: Rina Bentley Clinician Cosigner: Mary Rosales Physician / Rn Clinical Appeals: Nando Howe SUBJECTIVE Chief Complaint This information was obtained from the patient Diabetic ulcers to right and left foot. Allergies Minipress (Severity: Severe, Reaction: violent behavior), Vicodin (Severity: Mild, Reaction: itching), nortriptyline (Severity: Moderate), Avandia (Severity: Moderate) HPI This information was obtained from the patient 04/23/18. Seen by Dr. Howe. The patient does not report increased drainage associated with the bilateral plantar 1st MTPJ diabetic ulcers since his last visit. He reports being sick over the past week with nausea and vomiting which has mostly resolved as of today. 04/20/18. Seen by Dr. Howe. The patient does not report increased drainage associated with the bilateral plantar 1st MTPJ diabetic ulcers since his last visit. Also, his total contact cast was ordered but is not available today. It's to be placed on the right lower leg to better facilitate offloading in light of his partial right lateral foot amputation that's contributing significantly to callus formation and the refractory nature of the right foot ulcer. He also missed his appointment with cardiology on 04/07 to discuss intervention for his bilateral lower leg PAD which is also complicating his wound healing. 04/13/18. Seen by Dr. Howe. The patient does not report increased drainage associated with the bilateral plantar 1st MTPJ diabetic ulcers since his last visit. He states he's wearing his right lower leg PEORIA boot as recommended which is offloading the ulcer and addressing the partial right foot amputation which contributes considerably to recurrent and heavy callus formation. 04/09/18. Seen by Dr. Howe. The patient does not report increased drainage associated with the bilateral plantar 1st MTPJ diabetic ulcers since his last visit. His blood sugar is 226 today and he admits to eating some candy yesterday. 04/06/18. Seen by Dr. Howe. The patient does not report increased drainage associated with the bilateral plantar 1st MTPJ diabetic ulcers since his last visit. His bilateral arterial Doppler performed in February showed possible clinically significant PAD with a high grade stenosis of the right SFA and possible left common femoral inflow obstruction and bilateral lower leg with monophasic flow noted. He does not report rest pain nor claudication however he' s very limited in his mobility due to the plantar foot diabetic ulcers. 04/02/18. Seen by Dr. Howe. The patient continues to wear his PEORIA boot to offload the right foot 1st MTPJ diabetic ulcer and address the significant deformity associated with the partial lateral foot amputation and he does not report increased drainage associated with this ulcer nor the left plantar foot diabetic ulcer since his last. His wound culture from the last visit grew Staph and group G Strep and he's not currently on antibiotics. 03/30/18. Seen by Dr. Howe. The patient missed his last two appointments and states over the 24 of March he was wearing socks on his deck and noticed bleeding from the bilateral diabetic foot ulcers. His blood sugars are over 400 today and he's run our of insulin and glucose strips. He does not report pain associated with the ulcers and notes he's not wearing his PEORIA boot on the right foot at all times as recommended. He has a right partial foot amputation and Charcot deformity of both feet. 03/22/18. Seen by Dr. Howe. The patient continues to wear his PEORIA boot to offload the right foot 1st MTPJ diabetic ulcer and address the significant deformity associated with the partial lateral foot amputation and he does not report increased drainage associated with this ulcer nor the left plantar foot diabetic ulcer since his last. 03/15/18. Seen by Mitch Cota PA-C. The patient reports that he is compliant with his PEORIA boot but notes increased bleeding and drainage seen in the boot. 03/11/18. Seen by Mitch Cota PA-C. The patient reports stable drainage from his diabetic foot ulcers. His blood sugars continue to be above 150 this week. 03/04/18. Seen by Dr. Howe. The patient continues to wear his PEORIA boot to offload the right foot 1st MTPJ diabetic ulcer and address the significant deformity associated with the partial lateral foot amputation and he does not report increased drainage associated with this ulcer nor the left plantar foot diabetic ulcer since his last. He recently completed a course of doxycycline to treat a group G Strep positive culture and is applying iodosorb to the ulcers to help manage the persistent drainage. 03/01/18. Seen by Dr. Howe. The patient continues to wear his PEORIA boot to offload the right foot 1st MTPJ diabetic ulcer and address the significant deformity associated with the partial lateral foot amputation. He does not report significant drainage associated with this ulcer nor the left plantar foot diabetic ulcer since his last. 02/25/18. Seen by Dr. Howe. The patient will complete his course of doxycycline today that's treating the Staph and group G Strep positive culture taken from the right foot diabetic ulcer. He does not report adverse side effects and nor significant drainage from the ulcer or the left plantar foot diabetic ulcer. 02/22/18. Seen by Dr. Howe. The patient is now on doxycycline for the Staph and group G Strep positive culture taken from the right foot diabetic ulcer last week. He notes some bloody drainage from this site on his dressing today but feels this ulcer and the left foot diabetic ulcer have improved over the past few week. He's offloading the right foot which has a partial lateral amputation using his PEORIA boot as recommended however he's not using a frame walker. He does not report adverse side effects of the antibiotics nor other acute issues today. 02/18/18. Seen by Dr. Howe. The staff report increased drainage associated with both plantar foot 1st MTPJ diabetic ulcers and the patient reports a malodor from the dressings over the past week. He does not report fevers, feeling unwell, or pain in the feet but states his blood sugars have been a bit elevated in the 180s. He's also wearing his PEORIA boot as recommended on the right foot but states he does not have enough room in his house to use a knee scooter and does not use his frame walker. 02/11/18. Seen by Dr. Howe. The patient continues to wear his PEORIA boot to offload the right foot 1st MTPJ diabetic ulcer and address the significant deformity associated with the partial lateral foot amputation. He does not report significant drainage associated with this ulcer nor the left plantar foot diabetic ulcer since his last visit however the nurse states the mole skin dressing was applied inappropriately over the left foot ulcer and was overlying the ulcer itself and soaked with drainage. 02/04/18. Seen by Dr. Howe. The patient continues to wear his PEORIA boot to offload the right foot 1st MTPJ diabetic ulcer and address the significant deformity associated with the partial lateral foot amputation. He does not report significant drainage associated with this ulcer nor the left plantar foot diabetic ulcer since his last visit. 01/28/2018. Seen by Dr. Howe. The patient is now wearing his PEORIA boot to offload the right foot 1st MTPJ diabetic ulcer and address the significant deformity associated with the partial lateral foot amputation. He does not report significant drainage associated with this ulcer nor the left plantar foot diabetic ulcer since his last visit. 01/26/18. Seen by Dr. Howe. The patient states he has been without his insulin for over a week which is likely the cause of his blood sugars being around 400 over the past few visits. He has also not contacted his orthotics provider regarding the offloading PEORIA boot to wear on the right foot noting his significant deformity caused by the partial lateral foot amputation. He has not report increased drainage or other acute changes regarding his bilateral diabetic foot ulcers and will complete his course of doxycycline its treated the recent MSSA positive culture tomorrow. He also reports nausea and one episode of emesis earlier today but not other acute issues. 01/21/2018. Seen by Dr. Howe. The patient arrived today with his right foot dressing upside down. His blood sugars are also over 400. The patient does not report increased drainage associated with the right or left diabetic foot ulcers however states his neuropathic pain has been significant over the past 2 days. He also is going to picker packer his PEORIA boot today to help facilitate offloading of the right foot diabetic ulcer noted in he also has a partial lateral amputation on his foot that is contributed significantly 2. Ulcer callus formation. He also continues on doxycycline for he recent MSSA positive wound culture. 01/18/2018. Seen by Dr. Howe. The patient's wound culture from the left foot diabetic ulcer grew MSSA resistant to gentamicin. He is not currently on oral antibiotics and does not report increased drainage from either left right foot diabetic ulcers and is still waiting for his PEORIA boot to be available to help facilitate better offloading of the right foot noting his partial lateral right foot amputation and severe Charcot deformity. 01/14/18. Seen by Dr. Howe. The patient continues to report moderate drainage from the right and left diabetic foot ulcers over the past few days and he's seen his spring crater who's ordered a PEORIA boot for the right foot which should be available next week. He has severe bilateral Charcot deformities and partial right lateral foot amputation that contributes to the refractory nature of the ulcers and very heavy callus formation. 01/12/18. Seen by Dr. Howe. The patient reports moderate drainage from the right and left diabetic foot ulcers and he's seen his spring crater who's ordered a PEORIA boot for the right foot. He has bilateral partial lateral foot amputations which have resulted in refractory calluses of the bilateral plantar MTPJ's and associated DFU's. His blood have been well controlled and his recent hypoglycemic episodes have resolved. 01/07/18. Seen by Dr. Howe. The patient missed his last 2 appointments due to a GI illness last week and she reports some pain in the lateral aspect of the right forefoot but no increased drainage, swelling, or other acute changes of the diabetic foot ulcer. He also does not report any acute issues regarding the left diabetic foot ulcer. Of note, he has significant deformities of both feet due to partial amputations which have each contributed significantly to severe callus formation and the refractory nature of the ulcers. 01/01/18. Seen by Dr. Howe. The patient continues on clindamycin for the chronic right diabetic foot ulcer infection and it is not reported adverse side effects. He also does not report significant drainage associated with either left or right diabetic foot ulcer since his last visit. 12/28/17. Seen by Dr. Howe. The patient does not report increased drainage associated with either right or left foot diabetic ulcers since his last visit. He continues on clindamycin without reporting adverse side effects to treat the chronic right ulcer infection and his blood sugars are well controlled. Of note, he has been attending clinic twice weekly to optimize management of his recurrent and severe apollo-ulcer calluses that are in part due to his severe Charcot deformities and bilateral partial foot amputations. 12/21/17. Seen by Dr. Howe. The patient reports some drainage associated with the right foot diabetic ulcer since his last visit but none associated with the left foot diabetic ulcer. He completed his course of doxycycline today is treating the recent MSSA positive wound culture and is reported adverse side effects, fevers, feeling unwell. He states his blood sugars continue to be well controlled below 180. 12/15/17. Cinthia Howe. The patient's wound culture from the left plantar foot diabetic ulcer his last visit grew MSSA resistant to gentamicin. He does not report increased drainage or pain from either diabetic foot ulcers since his last visit. 12/10/17. Seen by REN Olea. The patient does not report increased drainage from his bilateral diabetic foot ulcers but does report continued odor. Notes a large amount of callous growth. Wound culture from last week showed MSSA and Diphtheroids. He has been applying topical gentamicin. 12/03/17. Seen by Mitch Cota PA-C. The patient reports increased drainage and odor from his bilateral diabetic foot ulcers. He continues to have elevated blood sugars. 11/26/17. Seen by Mitch Cota PA-C. The patient reports that he has decreased his usage of marijuana which he uses for recreation and to treat his neuropathy. He has not had a ground level fall since decreasing his usage. His blood sugars remain >150 and his ulcers' drainage is stable. 11/20/17. Seen by Mitch Cota PA-C. The patient reports no increase in his ulcer drainage from his bilateral lower extremity diabetic ulcers. He has not scheduled an appointment to see his PCP to address his consistently high blood sugars. 11/13/17. Seen by Mitch Cota PA-C. The patient reports stable drainage from his diabetic foot ulcers and continued difficulty keeping his blood sugars below 150. He also reports not wearing his diabetic shoes when at home. 11/09/17. Seen by Mitch Cota PA-C. The patient reports high blood sugars again this week. He does not report increased drainage though he notes callous formation continues to happen quickly between visits. 11/06/17. Seen by Dr. Howe. The patient does not report increased drainage associated with the chronic bilateral diabetic foot ulcers since the last visit. 11/02/17. Seen by Mitch Cota PA-C. The patient reports no increased drainage from his bilateral diabetic foot ulcers. He is not surprised that his blood sugar is low this morning as he did not eat dinner yesterday or breakfast today, citing mild GI discomfort. 10/30/17. Seen by Dr. Howe. The patient missed a few appointments recently due to our facility power outage however he does not report increased drainage or other acute issues regarding his bilateral first MTPJ plantar foot diabetic ulcers. 10/23/17. Seen by Mitch Cota PA-C. The patient reports that he did not take his insulin, or eat this morning. Drainage from his diabetic foot ulcers has been stable. 10/15/17. Seen by Mitch Cota PA-C. The patient reports high blood sugars this week and stable drainage from his foot ulcers. 10/13/17. Seen by Dr. Howe. The patient does not report increased drainage associated with the bilateral plantar foot diabetic ulcers since his last visit. 10/01/17. Seen by Dr. Howe. The patient does not report increased drainage associated with either left or right plantar foot diabetic ulcers since his last visit. 10/01/17. Seen by Dr. Howe. The patient does not report increased drainage associated with either left or right plantar foot diabetic ulcers since his last visit. 09/28/17. Seen by Dr. Howe. The patient does not report increased drainage associated with either left or right plantar foot diabetic ulcers since his last visit. He has been offloading as recommended as well. 09/24/17. Seen by Dr. Howe. The patient reports some increased drainage associated with the right chronic diabetic foot ulcer but none with the left chronic diabetic foot ulcer since his last visit. His blood sugars have been well controlled and he does not report pain in either feet or fevers or feeling unwell. He had been seen twice weekly due to the recent deterioration of the right foot ulcer and need for frequent debridement of the periulcer callus. 09/16/17. Seen by Dr. Howe. The patient does not report significant drainage associated with the bilateral plantar foot diabetic ulcers since last visit and his blood sugars are well controlled over the past week. 09/11/17. Seen by Dr. Howe. The patient states that the right foot diabetic ulcer bled significantly earlier this week when he got out of the shower. He had his INR checked yesterday and it was 3.5. He does not report increased drainage otherwise from either the left or right foot diabetic ulcers since his last visit. He's been seen as twice weekly for the past 2 weeks due to the very heavy accumulation of callus associated with the right foot ulcer. 09/08/17. Seen by Dr. Howe. The patient does not report increased drainage associated with bilateral foot diabetic ulcers since his last visit. 09/04/17. Seen by Dr. Howe. The patient does not report significant drainage associated with the bilateral plantar foot diabetic ulcers since last visit and his blood sugars are well controlled over the past week. 08/31/17. Seen by Dr. Howe. The patient does not report increased drainage associated with the bilateral plantar foot diabetic ulcers since his last visit and he continues on doxycycline for the positive right foot ulcer wound culture. His blood sugars have been well- controlled for the past week and he has had no further episodes of hypoglycemia. 08/26/17. Seen by Dr. Howe. The patient is now on doxycycline resistant MSSA positive wound culture taken from his right diabetic foot ulcer and does not report other side effects. He has picked up his new diabetic shoes and is wearing them as recommended. His blood sugar today is 58 in clinic and he has recently had his short-acting insulin increased by his primary care provider due to frequent episodes of hyperglycemia. He is scheduled to see his PCP again tomorrow to discuss the changes. 08/18/17. Seen by Mitch Cota PA-C. The patient reports a foul odor from his bilateral foot ulcers. He reports that he is feeling much better after an ER trip for hypoxia and his recent O2 saturation readings have been 100%. 08/06/17. Seen by Dr. Howe. The patient reports feeling unwell along with progressive shortness of breath while at rest over the past week. He says he had a low- grade fever at home today and staff report is O2 sats in low 90s upon arrival. He has a history of COPD also with possible admission for pneumonia within the past year. He is here for review of chronic diabetic foot ulcers that have been relatively stable for the past few weeks. 07/28/17. Seen by Mitch Cota PA-C. The patient reports increased drainage and bleeding from his diabetic foot ulcers. 07/20/17. Seen by Mitch Cota PA-C. The patient reports no increase in ulcer drainage since his last evaluation. 07/16/17. Seen by Mitch Cota PA-C. The patient has recently been in hospital where he had a NON-STEMI. He reports a reduction in drainage and wound odor after starting Augmentin. 07/01/17. Seen by Dr. Howe. The patient does not report significant drainage associated with the chronic bilateral plantar foot diabetic ulcers since his last visit. He will be picking up his new diabetic shoes today noting his partial right lateral foot amputation and multiple bilateral toe amputations plus Charcot deformity of both feet are contributing significantly to the recurrent heavy callus formation in the apollo-ulcer areas. He also states that he has not been covering his feet when he is in the shower despite our recommendation to do so. 06/19/17. Seen by Dr. Howe. The patient does not report significant drainage associated with the chronic bilateral plantar MTPJ diabetic ulcers since his last visit. Of note , the patient's blood sugar is 42 in clinic and was 35 earlier this morning. He's mildly symptomatic and is with his son who states the patient's food intake has been a bit less than usual due to limited funds at the end of the month. The patient also admits to trying to keep his blood sugars below 140 at all times and has had the problem of hypoglycemia in our clinic a number of times over the past year. 06/12/17. Seen by Dr. Howe. The patient does not report significant drainage associated with the chronic bilateral plantar MTPJ diabetic ulcers since his last visit. 06/05/17. Seen by Dr. Howe. The patient does not report significant drainage associated with the chronic bilateral plantar MTPJ diabetic ulcers since his last visit. He continues on Augmentin based on the recent wound culture and does not report adverse side effects. He also was seen by Dr. Garcia and his new diabetic shoes have been ordered noting his significant history of right lateral foot amputation and multiple toe amputations plus bilateral Charcot deformities. 05/29/17. Seen by Dr. Howe. The patient's wound culture from 2 days ago of a new right foot diabetic ulcer grew Streptococcus as well as Staph. He does not report increased drainage from this ulcer nor the chronic left foot diabetic ulcer. He is also not yet been seen by podiatry although we did send the referral over a couple weeks ago. His blood sugars continue to be well controlled and of note he has had extensive amputations of both the lateral aspect of the right foot as well as toes on both feet which has contributed significantly to recurrent callus and diabetic ulcer formation. 05/27/17. Seen by Mitch Cota PA-C. The patient reports a new ulcer to his right great toe that he believes has been continuously present for about a week. He denies any trauma to the area though states he may have been walking more lately. He is insensate and notes no pain, though he has seen purulent drainage in the area and notes a foul odor. 05/12/17. Seen by Dr. Howe. The patient does not report significant drainage associated with the chronic left plantar foot diabetic ulcer and he notes that heavy callus again has formed on the right plantar foot surface at the site of his recently healed diabetic ulcer. He has severe bilateral Charcot deformities along with multiple toe amputations that are contributing significantly to health information and the refractory and recurrent nature of his diabetic foot ulcers. He's also asked for us to address his toe nails today as it's been weeks since they've been trimmed. 05/05/17. Seen by Dr. Howe. The patient presents today with low blood sugars in the 40's and states he is feeling unwell in the waiting room. Upon my review he is lucid and eating and his blood sugars have increased into the 50s. He does not report any new problems regarding his chronic left foot diabetic ulcer and states that he has not discussed his hypoglycemia with his primary care provider yet despite having a number of episodes throughout the month. 04/28/17. Seen by Dr. Howe. The patient reports recurrence of his left plantar foot diabetic ulcer over the past week along with some new drainage that's quite malodorous. He does not report pain in the foot nor fevers nor any acute issues regarding his right lateral foot diabetic ulcer. He states his blood sugars continue to be well controlled with most below 120. 04/21/17. Seen by Dr. Howe. The patient does not report pain or drainage associated with the chronic right foot diabetic ulcers since his last visit. 04/14/17. Seen by Dr. Howe. The patient does not report pain or drainage associated with the chronic right foot diabetic ulcers since his last visit. His work diabetic shoe as recommended noting he is a partial right foot and right second toe amputations along with a significant Charcot deformity. 04/07/17. Seen by Dr. Howe. The patient does not report significant drainage or pain associated with the chronic right lower leg diabetic ulcers since his last visit. He snoring softly and she was recommended and reports his blood sugars have been well controlled. Of note, his significant deformity of the right foot including partial lateral amputation as well as second toe amputation and a significant Charcot deformity. 04/02/17. Seen by Dr. Howe. The patient reports that a coin accidentally fell into his right lower leg total contact cast a couple days ago. The staff found a johnson upon removing the cast as well as a new ulcer over the lateral aspect of the right foot. The patient does not report pain at the site nor does staff report significant drainage associated with new ulcer nor the chronic right plantar foot diabetic ulcer. The patient's blood sugars continue to be well controlled and he has no other acute complaints at this time. 03/28/17. Seen by Mitch Cota PA-C. The patient's recent wound culture demonstrated no growth. He has not noted increased drainage since his last evaluation. 03/23/17. Seen by Mitch Cota PA-C. The patient reports no increase in right foot ulcer drainage since his last evaluation. In addition his wound culture demonstrated no growth. 03/17/17. Seen by Dr. Howe. The patient does not report increased drainage associated with the chronic right first MTPJ diabetic ulcer.He completed his course of antibiotics that was treating the recent positive wound culture and does not report adverse side effects. He continues offload with a surgical shoe as well. 03/09/17. Seen by Dr. Howe. The patient does not report pain or significant drainage associated with the recurrent right foot diabetic ulcer. His culture of the ulcer was positive for a staph organism and Acinetobacter however he's not yet been started on antibiotics. He states his blood sugars continue to be well-controlled with most below 150. 03/02/17. Seen by Mitch Cota PA-C. The patient reports no improvement in drainage from his diabetic ulcer of the right foot. He has noted odor at times coming from the ulcer. 02/23/17. Seen by Mitch Cota PA-C. The patient reports no increase in drainage from his diabetic ulcer of the right foot. 02/09/17. Seen by Mitch Cota PA-C. The patient reports that he has just begun taking Bactrim for his infection of his right foot diabetic ulcer. He reports continued purulent drainage and odor. 02/02/17. Seen by Mitch Cota PA-C. The patient returns to our clinic with a new ulcer of his right first metatarsal head. He reportedly smacked his foot hard on the floor, creating this ulcer, in an attempt to stop an episode of neuropathy. 11/10/16. Seen by Mitch Cota PA-C. The patient returns for evaluation of his recently healed ulcer, fearing that it is open again. He has not seen liquid drainage but fears it is draining under the callous. 11/04/16. Seen by Mitch Cota PA-C. The patient does not report any difficulties with his TCC this week. 10/24/16. Seen by Dr. Howe. The patient does not report any problems regarding his TCC and staff do not repot significant drainage on the dressing overlying the left plantar foot diabetic ulcer. His blood sugars remain well controlled with most below 150. 10/20/16 Seen by Mitch Cota PA-C. The patient is here for placement of a TCC to offload his left plantar foot diabetic ulcer. He notes that the drainage from his ulcer has soaked through the TCC under-layers and almost soaked through the cast. 10/15/16. Seen by Dr. Howe. The patient tolerated his TCC with minimal discomfort noting mild pain in the left 1st toe. The staff do not report significant drainage associated with the chronic left plantar foot diabetic ulcer and he states his blood sugars are mostly below 150. He's now been placed in a TCC to optimize offloading needed to accommodate for the left foot Charcot deformity that's lead to recurrent heavy callus formation in the periulcer area. 10/13/16 Seen by Mitch Cota PA-C. The patient reports no increase in drainage from his left foot diabetic non-pressure ulcer since his last evaluation. 09/29/15 Seen by Mitch Cota PA-C. The patient reports no increase in drainage from his chronic left foot diabetic ulcer. He does voice frustration that his wound is taking so long to heal. 09/19/16. Seen by Dr. Howe. The patient does not report increased drainage or other acute issues regarding his chronic left plantar foot diabetic ulcer since his last visit. 09/12/16. Seen by Dr. Howe. The patient does not report significant drainage associated with the chronic left plantar foot diabetic ulcer over the past week. He's applying Kerasal to the periwound callus as recommended and has limited his walking considerably, in addition to wearing an offloading shoe, to minimize callus formation. His blood sugars also remain well controlled with most below 150 and he continues on Bactrim for an infection of the ulcer without reporting adverse side effects. 09/05/16. Seen by Dr. Howe. The patient returns to clinic with recurrent of his left plantar foot diabetic ulcer that he states reopened about 2 weeks ago. He was placed on Keflex by his PCP yesterday due to the appearance of the ulcer and significant drainage. He states his blood sugars are well controlled and he limits his walking to help facilitate offloading. 07/28/16. Seen by Dr. Howe. The patient does not report significant drainage associated with the chronic left plantar foot diabetic ulcer over the past week. He's applying Kerasal to the periwound callus as recommended and states his blood sugars are consistently below 150. He does report ongoing nausea for the past few weeks and states he's on 3 nausea medications but does not know what's causing it. He's working with his PCP on this problem. 07/15/16 Seen by Mitch Cota PA-C. The patient reports no fever chills or pain from his left foot diabetic ulcer since his last evaluation. 07/10/16. Seen by Dr. Howe. The patient does not report significant drainage associated with the chronic left plantar foot diabetic ulcer over the past week. He's applying Kerasal to the periwound callus as recommended and has limited his walking considerably, in addition to wearing an offloading shoe, to minimize callus formation. 07/08/16 Seen by Mitch Cota PA-C. The patient reports no increase in pain or drainage from his ulcer, though he does report nausea and vomiting. After further review, it appears that his PPI prescription has run out and he stopped it abruptly. He has not had associated fever, chills or lower GI symptoms. His blood sugars have reportedly been above 150 this week. The patient reports that he still has problems with callous formation on his feet and will be seeing podiatry. 07/04/16. Seen by Dr. Howe. The patient does not report significant drainage associated with the chronic left plantar foot diabetic ulcer since his last visit. He does report significant nausea and vomiting over the past week however but does not report fever, cough, or other specific symptoms and feels the nausea has started to improve as of yesterday. He states his blood sugars have been well controlled with most below 150 and he's on Augmentin for the recent MSSA and Strep positive wound culture. He's also been applying Kerasal to the periwound callus as recommended and has been limited in his walking the past week due to illness. 06/23/16 Seeb by Mitch Cota PA-C. The patient reports that he believes he has an infection in his foot because his dog has been sniffing and licking his open ulcer. He believes his dog has a nose for infection. He reports a continuous, strong, foul odor from his left plantar foot ulcer for the past 3 days with an associated increase in drainage. In addition he has not been offloading his foot as instructed and is going barefoot at home. 06/16/16 Seen by Mitch Cota PA-C. The patient reports that he is walking barefoot in the house and only wears shoes outside the house. His left foot diabetic ulcer drainage has been stable. 06/02/16 Seen by Mitch Cota PA-C. The patient reports that he is due to have a new orthotic fitted for his deformed left foot to further offload his chronic left foot ulcer. He reports stable drainage from this ulcer. 05/27/16 Seen by Mitch Cota PA-C. The patient reports that he now has a new wound near his chronic left plantar foot diabetic ulcer. The new wound began spontaneously and was noted today. His chronic ulcer has had stable drainage. 05/19/16. Seen by Dr. Howe. The patient does not report significant drainage associated with the chronic left plant foot diabetic ulcer over the past week and he states his blood sugars are well controlled with most below 150. 05/12/16. Seen by Dr. Howe. The patient reports some new pain along the right foot surgical scar but no swelling or drainage from the site. He does not recall injuring the foot and feels he may have been more active over the past week. He does not report significant or drainage associated with the left plantar foot diabetic ulcer and states he's not been able to check his blood sugars due to the fact he ran out of glucometer strips this past week. His blood sugar today is 280. 04/11/16. Seen by Dr. Howe. The patient does not report pain or drainage associated with the chronic right lateral foot diabetic ulcer of the past week. He states his blood sugars are consistently below 150 and he is wearing his offloading shoe is recommended. 04/04/16. Seen by Dr. Howe. 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 He states his blood sugars are mostly below 150 and he's offloading using a surgical offloading shoe. He's now off of antibiotics and is here today with his granddaughter who's assisting with his care. 03/31/16 Seen by Mitch Cota PA-C. The patient has returned from [facility] where he had a 4th ray amputation performed to his right foot. He reports that he was supposed to have follow up appointments with surgery, cardiology and wound care but has not attended any of these appointments due to transportation difficulties. He is unsure of when his sutures are supposed to be removed. 02/28/16 Seen by Mitch Cota PA-C. The patient was seen at [facility] and evaluated by Dr. Monae on an urgent basis as arranged by Dr. Howe at his last visit. The patient reports that Dr. Monae wanted to urgently take him to surgery but the patient would prefer to have Dr. Garcia do it and refused admission to the hospital. 02/21/[address] Howe. The patient does not report pain or significant drainage associated with the Alonzo grade 3 right lateral foot diabetic ulcer and he saw Dr. Garcia , podiatry, this morning who reportedly states she's not able to perform any additional debridement until his right leg vascular status is further evaluated. He had an arterial Doppler scheduled yesterday however both the patient and his son state they were unaware of the appointment. He started taking his Augmentin, which is treating the MSSA and Strep viridans culture from 02/15/16, following the last visit as recommended, states his blood sugars have been consistently below 150 over the past week, and he's offloading by wearing a surgical shoe and significantly limiting his walking. Of note, he's still on supplemental oxygen following his recent hospital discharge and gets short of breath on minimal exertion. Please see my note below from his last visit regarding details of the admission and amputation. 02/15/[address] Howe. The patient does not report pain associated with the right lateral foot diabetic ulcer. He was discharged 4 days ago following a partial ray amputation of the 5th toe and MT due a progressive foot infection that he states occurred over about 2 days prior to being admitted to the hospital. His wound culture on arrival to the ER was polymicrobial and reported on Group C Strep. He was treated with IV Zosyn during the admission and prescribed Augmentin on discharge however he's not yet picked up the prescription. His blood sugars have been relatively well controlled with most below 150 since discharge. Of note, he also had a non-ST elevation NJ post-operatively, acute on chronic renal failure with a Cr of 1.8 on discharge, and acute respiratory failure and continues on supplemental oxygen. 12/27/[address] Howe. The patient does not report drainage or pain associated with the chronic right plantar foot diabetic ulcer over the past week. He's not been applying Kerasal to the associated callus as recommended however he does not have diabetic shoes and a new AFO that he's been wearing. His blood sugars also remain relatively well controlled below 150 consistently. 12/06/[address] Howe. The patient does not report pain or significant drainage from the chronic right plantar foot diabetic ulcer. His blood sugars remain well controlled around 120 and he's now wearing his new diabetic shoes and offloading by limiting his walking significantly. He's also applying Kerasal daily to the right foot calluses as recommended. 11/29/[address] Howe. The patient does not report significant drainage from the chronic right plantar foot diabetic ulcer and he states his blood sugars remain well controlled below 150. He's also wearing his diabetic shoes now and limiting his walking to facilitate offloading. 11/23/[address] Howe. The patient reports moderate drainage but no pain associated with the chronic right plantar foot diabetic ulcer. He continues on doxycycline for a polymicrobial positive wound culture and he states his blood sugars remain well controlled with most below 120. 11/15/[address] Howe. The patient's wound culture from the last visit grew Enterobacter, Staph, and group G Strep however he's not yet picked up his prescription for doxycycline. He has at least moderate serosanquinous drainage on the dressing and states he's been a bit more active this past week as his son has been sick and unable to do the shopping. His blood sugar was also elevated yesterday near 200 but has been relatively well controlled prior to that. 11/08/15 Seen by Mitch Cota PA-C. The patient reports that his son is sick and he has been up on his feet taking care of him and has been unable to stay off of his feet. He has noted more drainage from his right plantar foot diabetic ulcer in the past few days. He also reports that his current shoes with inserts are making a large callous on his right heel and he doesn't feel that they offload his ulcer, so he has been trying to walk on the lateral edge of his right foot to offload his ulcer, and now is having lateral right foot pain as a result. 11/01/[address] Howe. The patient admits to being more active over the past two weeks but states there's only been very minimal drainage from the right plantar foot diabetic ulcer. His blood sugars also remain well controlled below 150 consistently. 10/18/[address] Howe. The patient does not report drainage from the right foot plantar diabetic ulcer however he states he has been more active the past week in terms of walking. His blood sugars also remain well controlled below 150. 10/11/[address] Howe. The patient does not report pain or drainage associated with the right plantar foot nor heel diabetic ulcers. 10/04/[address] Howe. The patient does not report drainage from the right plantar foot diabetic ulcer and he continues to use Kerasal daily for the significant right heel callus. His blood sugars are also well controlled below 120 consistently. 09/27/[address] Howe. The patient reports only minimal drainage from the right plantar foot diabetic ulcer and states his blood sugars continue to improve with most between 120 and 180. He's also applying Kerasal to the bilateral foot calluses daily as we've requested. 09/19/[address] Howe. The patient reports significantly decreased drainage from the right plantar foot diabetic ulcer and he'll complete his course of levofloxacin today that treating the polymicrobial wound culture from 09/04/15. His blood sugars are also much better controlled over the past week with most around 150 and very few over 200. 09/12/[address] Howe. The patient continues to report significant drainage from the right plantar diabetic foot ulcer and his wound culture from 09/04/15 grew Strep , Providencia, and Neisseria species. He's now on levofloxacin and does not report adverse effects. He's also no longer experiencing severe hypoglycemic episodes and is working closely with is PCP on adjusting his insulin regimen. His blood sugars due tend to remain over 200 however. 09/07/[address] Howe. The patient continues to report blood sugars as low as the 40's since our visit last week. Regarding his foot ulcers, he reports continued foul smelling drainage from the right foot diabetic ulcer but none from right heel or left foot diabetic ulcer. His blood sugars also may be as high as 300 and he states he's compliant with his diabetes medication regimen and will require as much as 30-40 units of short acting insulin on occasion. He does not report pain in the feet nor fevers or other systemic symptoms. 08/31/[address] Howe. The patient is new to our clinic. On arrival he was not feeling well and was tremulous. The MA checked his blood sugar and is registered 34 which is the lowest the glucometer would read. I spoke with him and he reported feeling very unwell at which time he was urgently transferred to the ER. Of note, he was in the clinic to review bilateral diabetic foot ulcers. He'd also recently lost a son and has been very upset the past week according to staff. Family History This information was obtained from the patient Cancer - Father, Diabetes - Mother, Heart Disease - Mother, Stroke - Mother Social History This information was obtained from the patient Former smoker - quit at age 42, Alcohol Use - rare, Caffeine Use - 1 coffee per day, Children - 2 children, Lives in - Private home with son, Marital Status - , Retired , Substance Abuse - Marijuana Past Medical History This information was obtained from the patient Patient has a medical history of: Chronic Obstructive Pulmonary Disease (COPD) Type II Diabetes (A1c 7.4 on 11/12/2015) PAD Peripheral neuropathy Hypoglycemia CVA Diabetic foot ulcer (Right plantar 1st MTPJ, Alonzo grade II) Coronary Artery Disease (CAD) (s/p NJ during admission on 02/04/2016) Lumbar strain CHF Hyperlipidemia CKD stage 3 Gout Diabetic foot ulcer - 02/04/2016 (right lateral foot s/p partial ray amputation; Alonzo grade 3; MSSA and Strep viridans cultured) Surgical History This information was obtained from the patient Patient has a surgical history of: Amputation of left 3rd/4th toe 5 way bypass (11 years ago) Shoulder bilateral surgery (20 years ago) TandA (child) Cataract surgery bilateral (2013) Amputation right 5th toe (01/2016) Complaints and Symptoms This information was obtained from the patient Patient complains of: General Notes: I have reviewed and concur with the Review of Systems and Past Family Social History documents completed by the clinician, I have reviewed and concur with the Wound Assessment document completed by the clinician Cardiovascular (Central): Dyspnea on Exertion Ear/Nose/Mouth/Throat: Hearing Loss / Aid Integumentary (Hair/Skin/Nails): Open Sore Musculoskeletal: Assistive Devices, Deformities Neurological: Loss of Protective Sensation Prior Wound History: Drainage, Erythema, Malodor Patient denies complaints or symptoms related to: Cardiovascular (Central/Peripheral): Intermittent Claudication, Lower extremity (leg) resting pain Constitutional Symptoms (General Health): Chills, Fever Gastrointestinal (GI): Nausea / Vomiting, Stomach/abdominal pain Hematologic/Lymphatic: Bleeding / Clotting Disorders, Bleeding Tendency Musculoskeletal: Muscle Weakness Prior Wound History: Bleeding, Pain Psychiatric: Anxiety, Memory Loss Respiratory: Oxygen Use, Shortness of Breath Additional Information Does patient have a history of Cancer? Yes? Complete all questions.: Yes Location of Cancer: Skin cancer Patient underwent Radiation Treatment? If yes, answer question below.: No OBJECTIVE Constitutional BP elevated; Afebrile; Alert and in no distress. Well developed. Alert. Clean appearing.. Height/Length: 72 in (182.88 cm), Weight: 216.1 lbs (98.23 kgs), BMI: 29.3, Temperature: 97.3 ?F (36.28 ?C), Pulse: 73 bpm, Respiratory Rate: 18 breaths/min, Blood Pressure: 164/91 mmHg, Capillary Blood Glucose: 211 mg/dl, Pulse Oximetry: 99 %. Vital Signs Notes: Glucose taken in clinic. Ears, Nose, Mouth, and Throat: Mild hearing deficit. Respiratory: No respiratory distress. Even respirations and without use of accessory muscles.. Cardiovascular: Affected extremity exhibits no peripheral edema or cyanosis, is warm, and is well perfused. Capillary refill is less than 2 seconds. Integumentary (Hair, Skin) No periwound erythema, warmth, or significant drainage. No periwound rashes appreciated or noted otherwise.. Refer to appropriate clinician wound documentation for this visit; right and left foot ulcers extend to subcut with bases partially covered with pink granulation, remainder fibrin and slough; both improved from last vist in terms of callus and granulation. Moderate amount of callus in the periulcer area. Wound #11 Left Metatarsal head first is a chronic Alonzo Grade 2 Diabetic Ulcer and has received a status of Not Healed. Subsequent wound encounter measurements are 1.5cm length x 1.3cm width x 0.3cm depth, with an area of 1.95 sq cm and a volume of 0.585 cubic cm. No tunneling has been noted. No sinus tract has been noted. No undermining has been noted. There is a large amount of sero-sanguineous drainage noted which has no odor. The patient reports no wound pain due to the wound being insensate. The wound margin is callus. Wound bed has Yes epithelialization, No eschar, No slough, Yes bright red, pink , spongy granulation. The periwound skin color is normal. The periwound skin exhibited: Callus, Moist , Maceration. The periwound skin did not exhibit: Brawny Induration, Edema, Excoriation, Induration, Crepitus, Fluctuance, Friable, Rash, Dry/Scaly. The temperature of the periwound skin is WNL. Periwound skin does not exhibit signs or symptoms of infection. Local Pulse is Palpable. Wound #12 Right, Plantar Metatarsal head first is a Alonzo Grade 2 Diabetic Ulcer and has received a status of Not Healed. Subsequent wound encounter measurements are 2.4cm length x 1.4cm width x 0.2cm depth, with an area of 3.36 sq cm and a volume of 0.672 cubic cm. No tunneling has been noted. No sinus tract has been noted. No undermining has been noted. There is a large amount of sero-sanguineous drainage noted which has no odor. The patient reports no wound pain due to the wound being insensate. The wound margin is callus. Wound bed has Yes epithelialization, No eschar, No slough, Yes bright red, pink , spongy granulation. The periwound skin exhibited: Callus, Moist, Maceration, Erythema. The periwound skin did not exhibit: Brawny Induration, Edema, Excoriation, Induration, Crepitus, Fluctuance , Friable, Rash, Dry/Scaly, Atrophie Yola, Cyanosis, Ecchymosis, Hemosiderosis, Pallor, Rubor. The temperature of the periwound skin is WNL. Periwound skin does not exhibit signs or symptoms of infection. Local Pulse is Normal. Neurological: Cranial nerves grossly intact with symmetric function normal by informal observation.. ASSESSMENT Active Problems ICD-10 (Encounter Diagnosis) L97.522 - Non-pressure chronic ulcer of other part of left foot with fat layer exposed (Encounter Diagnosis) L97.512 - Non-pressure chronic ulcer of other part of right foot with fat layer exposed (Encounter Diagnosis) E11.621 - Type 2 diabetes mellitus with foot ulcer (Encounter Diagnosis) M21.6X1 - Other acquired deformities of right foot (Encounter Diagnosis) I70.203 - Unspecified atherosclerosis of [place] arteries of extremities, bilateral legs PROCEDURES Wound #11 Wound #11 (Diabetic Ulcer) is located on the left metatarsal head first. A skin/ subcutaneous tissue level surgical debridement with a total area debrided of 2.08 sq cm was performed by Nando Howe MD. Subcutaneous was removed along with devitalized tissue: callus and exudate. The following instrument(s) were used: curette. Pain control was achieved using 4% Lido. A time out was conducted prior to the start of the procedure. A moderate amount of bleeding was controlled with silver nitrate. The procedure was tolerated well with a pain level of 0 throughout and a pain level of 0 following the procedure. Post Debridement Measurements: 1.6cm length x 1.3cm width x 0.3cm depth; with an area of 2.08 sq cm and a volume of 0.624 cubic cm; Wound #12 Wound #12 (Diabetic Ulcer) is located on the right, plantar metatarsal head first. A skin/subcutaneous tissue level surgical debridement with a total area debrided of 3.75 sq cm was performed by Nando Howe MD. Subcutaneous was removed along with devitalized tissue: callus and exudate. The following instrument(s) were used: curette. Pain control was achieved using 4% Lido. A time out was conducted prior to the start of the procedure. A moderate amount of bleeding was controlled with silver nitrate. The procedure was tolerated well with a pain level of 0 throughout and a pain level of 0 following the procedure. Post Debridement Measurements: 2.5cm length x 1.5cm width x 0.3cm depth; with an area of 3.75 sq cm and a volume of 1.125 cubic cm; Additional Information Muscle fascia or bone removed and sent to pathology?: No Muscle fascia or bone removed and sent to pathology?: No PLAN Wound Orders: Wound #11 Left Metatarsal head first Anesthetic Topical Xylocaine to wound bed. - In clinic only. Cleanser Cleanse Wound: - Normal saline and gauze, may use distilled water at home. May Shower. - Keep covered in shower with cast protector or plastic bag. Topical Treatments Antibiotic/Antimicrobial Ointment/Cream. - Gentamicin. Dressings Primary dressing: - [place] donut pad surrounding wound. May leave pad in place during dressing changes. Cover and secure with: - Foam and hypafix tape. Change Dressing: - Daily. Wound #12 Right, Plantar Metatarsal head first Anesthetic Topical Xylocaine to wound bed. - In clinic only. Cleanser Cleanse Wound: - Normal saline and gauze, may use distilled water at home. May Shower. - Keep covered in shower with cast protector or plastic bag. Topical Treatments Antibiotic/Antimicrobial Ointment/Cream. - Gentamicin. Dressings Primary dressing: - [place] donut pad surrounding wound. May leave pad in place during dressing changes. Cover and secure with: - Foam and hypafix tape. Change Dressing: - Daily. Additional Orders: Off-Loading Keep weight off: - Both feet as much as possible. Follow-Up Appointments Return Appointment: - - Tuesdays and Fridays for callus removal, until we receive TCC. Other information: If you develop fever, chills, increased pain, drainage, redness or swelling please call our office. If after hours, respond to the ER. Should you experience any significant changes in your wound(s) or have any questions regarding your home care instructions please contact the wound center @ [phone]. If after hours, contact your primary care physician or go to the hospital emergency room. Scribing Attestation I attest, as the nurse, that I scribed these orders for the physician. I've reviewed the clinician's documentation and agree with the evaluation and plan as written. In addition the patient's ulcers demonstrate evidence of non-viable devitalized tissue and they will continue to benefit from sharp debridement to help promote granulation and expedite healing. Electronic Signature(s) Signed By: Date: Nando Howe MD 04/26/2018 09:40:37 Entered By: Nando Howe on 04/26/2018 09:36:29
== END ==
PROVIDERS: Family Provider Physician Assistant Medical; PCP Physician Assistant Medical; Visit Provider Internal Medicine
DX: E11.621 Type 2 diabetes mellitus with foot ulcer (principal); L97.522 Non-pressure chronic ulcer of other part of left foot with fat layer exposed; L97.512 Non-pressure chronic ulcer of other part of right foot with fat layer exposed; M21.6X1 Other acquired deformities of right foot
CPT/HCPCS: 11042

== ENCOUNTER → 2018-05-04 08:57 | Outpatient (CLI) | payer MEDICARE, SELFPAY ==
--- NOTE | 2018-05-04 | OV.WND_ITS ---
Progress Note Details Patient Name: Nick Drake Patient Number: [id number] PatientPatientDate: 05/04/2018 Clinician: Lacy Malone Clinician Cosigner: Mary Rosales Physician / Software Reliability Engineer: Nando Howe SUBJECTIVE Chief Complaint This information was obtained from the patient Diabetic ulcers to right and left foot. Allergies Minipress (Severity: Severe, Reaction: violent behavior), Vicodin (Severity: Mild, Reaction: itching), nortriptyline (Severity: Moderate), Avandia (Severity: Moderate) HPI This information was obtained from the patient 05/03/18. Seen by Dr. Howe. The patient did not make is appointments last week due to a GI issue. He does not report increased drainage associated with the bilateral plantar 1st MTPJ diabetic ulcers since his last visit however and we're planning on placing a TCC to better offload the right foot ulcer today. Of note, he has a partial right lateral foot amputation that's contributing to heavy periulcer callus formation and the refractory nature of the ulcer. 04/23/18. Seen by Dr. Howe. The patient does not report increased drainage associated with the bilateral plantar 1st MTPJ diabetic ulcers since his last visit. He reports being sick over the past week with nausea and vomiting which has mostly resolved as of today. 04/20/18. Seen by Dr. Howe. The patient does not report increased drainage associated with the bilateral plantar 1st MTPJ diabetic ulcers since his last visit. Also, his total contact cast was ordered but is not available today. It's to be placed on the right lower leg to better facilitate offloading in light of his partial right lateral foot amputation that's contributing significantly to callus formation and the refractory nature of the right foot ulcer. He also missed his appointment with cardiology on 04/07 to discuss intervention for his bilateral lower leg PAD which is also complicating his wound healing. 04/13/18. Seen by Dr. Howe. The patient does not report increased drainage associated with the bilateral plantar 1st MTPJ diabetic ulcers since his last visit. He states he's wearing his right lower leg UNGA boot as recommended which is offloading the ulcer and addressing the partial right foot amputation which contributes considerably to recurrent and heavy callus formation. 04/09/18. Seen by Dr. Howe. The patient does not report increased drainage associated with the bilateral plantar 1st MTPJ diabetic ulcers since his last visit. His blood sugar is 226 today and he admits to eating some candy yesterday. 04/06/18. Seen by Dr. Howe. The patient does not report increased drainage associated with the bilateral plantar 1st MTPJ diabetic ulcers since his last visit. His bilateral arterial Doppler performed in February showed possible clinically significant PAD with a high grade stenosis of the right SFA and possible left common femoral inflow obstruction and bilateral lower leg with monophasic flow noted. He does not report rest pain nor claudication however he' s very limited in his mobility due to the plantar foot diabetic ulcers. 04/02/18. Seen by Dr. Howe. The patient continues to wear his UNGA boot to offload the right foot 1st MTPJ diabetic ulcer and address the significant deformity associated with the partial lateral foot amputation and he does not report increased drainage associated with this ulcer nor the left plantar foot diabetic ulcer since his last. His wound culture from the last visit grew Staph and group G Strep and he's not currently on antibiotics. 03/30/18. Seen by Dr. Howe. The patient missed his last two appointments and states over the 24 of March he was wearing socks on his deck and noticed bleeding from the bilateral diabetic foot ulcers. His blood sugars are over 400 today and he's run our of insulin and glucose strips. He does not report pain associated with the ulcers and notes he's not wearing his UNGA boot on the right foot at all times as recommended. He has a right partial foot amputation and Charcot deformity of both feet. 03/22/18. Seen by Dr. Howe. The patient continues to wear his UNGA boot to offload the right foot 1st MTPJ diabetic ulcer and address the significant deformity associated with the partial lateral foot amputation and he does not report increased drainage associated with this ulcer nor the left plantar foot diabetic ulcer since his last. 03/15/18. Seen by Mitch Cota PA-C. The patient reports that he is compliant with his UNGA boot but notes increased bleeding and drainage seen in the boot. 03/11/18. Seen by Mitch Cota PA-C. The patient reports stable drainage from his diabetic foot ulcers. His blood sugars continue to be above 150 this week. 03/04/18. Seen by Dr. Howe. The patient continues to wear his UNGA boot to offload the right foot 1st MTPJ diabetic ulcer and address the significant deformity associated with the partial lateral foot amputation and he does not report increased drainage associated with this ulcer nor the left plantar foot diabetic ulcer since his last. He recently completed a course of doxycycline to treat a group G Strep positive culture and is applying iodosorb to the ulcers to help manage the persistent drainage. 03/01/18. Seen by Dr. Howe. The patient continues to wear his UNGA boot to offload the right foot 1st MTPJ diabetic ulcer and address the significant deformity associated with the partial lateral foot amputation. He does not report significant drainage associated with this ulcer nor the left plantar foot diabetic ulcer since his last. 02/25/18. Seen by Dr. Howe. The patient will complete his course of doxycycline today that's treating the Staph and group G Strep positive culture taken from the right foot diabetic ulcer. He does not report adverse side effects and nor significant drainage from the ulcer or the left plantar foot diabetic ulcer. 02/22/18. Seen by Dr. Howe. The patient is now on doxycycline for the Staph and group G Strep positive culture taken from the right foot diabetic ulcer last week. He notes some bloody drainage from this site on his dressing today but feels this ulcer and the left foot diabetic ulcer have improved over the past few week. He's offloading the right foot which has a partial lateral amputation using his UNGA boot as recommended however he's not using a frame walker. He does not report adverse side effects of the antibiotics nor other acute issues today. 02/18/18. Seen by Dr. Howe. The staff report increased drainage associated with both plantar foot 1st MTPJ diabetic ulcers and the patient reports a malodor from the dressings over the past week. He does not report fevers, feeling unwell, or pain in the feet but states his blood sugars have been a bit elevated in the 180s. He's also wearing his UNGA boot as recommended on the right foot but states he does not have enough room in his house to use a knee scooter and does not use his frame walker. 02/11/18. Seen by Dr. Howe. The patient continues to wear his UNGA boot to offload the right foot 1st MTPJ diabetic ulcer and address the significant deformity associated with the partial lateral foot amputation. He does not report significant drainage associated with this ulcer nor the left plantar foot diabetic ulcer since his last visit however the nurse states the mole skin dressing was applied inappropriately over the left foot ulcer and was overlying the ulcer itself and soaked with drainage. 02/04/18. Seen by Dr. Howe. The patient continues to wear his UNGA boot to offload the right foot 1st MTPJ diabetic ulcer and address the significant deformity associated with the partial lateral foot amputation. He does not report significant drainage associated with this ulcer nor the left plantar foot diabetic ulcer since his last visit. 01/28/2018. Seen by Dr. Howe. The patient is now wearing his UNGA boot to offload the right foot 1st MTPJ diabetic ulcer and address the significant deformity associated with the partial lateral foot amputation. He does not report significant drainage associated with this ulcer nor the left plantar foot diabetic ulcer since his last visit. 01/26/18. Seen by Dr. Howe. The patient states he has been without his insulin for over a week which is likely the cause of his blood sugars being around 400 over the past few visits. He has also not contacted his orthotics provider regarding the offloading UNGA boot to wear on the right foot noting his significant deformity caused by the partial lateral foot amputation. He has not report increased drainage or other acute changes regarding his bilateral diabetic foot ulcers and will complete his course of doxycycline its treated the recent MSSA positive culture tomorrow. He also reports nausea and one episode of emesis earlier today but not other acute issues. 01/21/2018. Seen by Dr. Howe. The patient arrived today with his right foot dressing upside down. His blood sugars are also over 400. The patient does not report increased drainage associated with the right or left diabetic foot ulcers however states his neuropathic pain has been significant over the past 2 days. He also is going to picking crew supervisor his UNGA boot today to help facilitate offloading of the right foot diabetic ulcer noted in he also has a partial lateral amputation on his foot that is contributed significantly 2. Ulcer callus formation. He also continues on doxycycline for he recent MSSA positive wound culture. 01/18/2018. Seen by Dr. Howe. The patient's wound culture from the left foot diabetic ulcer grew MSSA resistant to gentamicin. He is not currently on oral antibiotics and does not report increased drainage from either left right foot diabetic ulcers and is still waiting for his UNGA boot to be available to help facilitate better offloading of the right foot noting his partial lateral right foot amputation and severe Charcot deformity. 01/14/18. Seen by Dr. Howe. The patient continues to report moderate drainage from the right and left diabetic foot ulcers over the past few days and he's seen his coordinator of placement who's ordered a UNGA boot for the right foot which should be available next week. He has severe bilateral Charcot deformities and partial right lateral foot amputation that contributes to the refractory nature of the ulcers and very heavy callus formation. 01/12/18. Seen by Dr. Howe. The patient reports moderate drainage from the right and left diabetic foot ulcers and he's seen his coordinator of placement who's ordered a UNGA boot for the right foot. He has bilateral partial lateral foot amputations which have resulted in refractory calluses of the bilateral plantar MTPJ's and associated DFU's. His blood have been well controlled and his recent hypoglycemic episodes have resolved. 01/07/18. Seen by Dr. Howe. The patient missed his last 2 appointments due to a GI illness last week and she reports some pain in the lateral aspect of the right forefoot but no increased drainage, swelling, or other acute changes of the diabetic foot ulcer. He also does not report any acute issues regarding the left diabetic foot ulcer. Of note, he has significant deformities of both feet due to partial amputations which have each contributed significantly to severe callus formation and the refractory nature of the ulcers. 01/01/18. Seen by Dr. Howe. The patient continues on clindamycin for the chronic right diabetic foot ulcer infection and it is not reported adverse side effects. He also does not report significant drainage associated with either left or right diabetic foot ulcer since his last visit. 12/28/17. Seen by Dr. Howe. The patient does not report increased drainage associated with either right or left foot diabetic ulcers since his last visit. He continues on clindamycin without reporting adverse side effects to treat the chronic right ulcer infection and his blood sugars are well controlled. Of note, he has been attending clinic twice weekly to optimize management of his recurrent and severe apollo-ulcer calluses that are in part due to his severe Charcot deformities and bilateral partial foot amputations. 12/21/17. Seen by Dr. Howe. The patient reports some drainage associated with the right foot diabetic ulcer since his last visit but none associated with the left foot diabetic ulcer. He completed his course of doxycycline today is treating the recent MSSA positive wound culture and is reported adverse side effects, fevers, feeling unwell. He states his blood sugars continue to be well controlled below 180. 12/15/17. Cinthia Howe. The patient's wound culture from the left plantar foot diabetic ulcer his last visit grew MSSA resistant to gentamicin. He does not report increased drainage or pain from either diabetic foot ulcers since his last visit. 12/10/17. Seen by REN Olea. The patient does not report increased drainage from his bilateral diabetic foot ulcers but does report continued odor. Notes a large amount of callous growth. Wound culture from last week showed MSSA and Diphtheroids. He has been applying topical gentamicin. 12/03/17. Seen by Mitch Cota PA-C. The patient reports increased drainage and odor from his bilateral diabetic foot ulcers. He continues to have elevated blood sugars. 11/26/17. Seen by Mitch Cota PA-C. The patient reports that he has decreased his usage of marijuana which he uses for recreation and to treat his neuropathy. He has not had a ground level fall since decreasing his usage. His blood sugars remain >150 and his ulcers' drainage is stable. 11/20/17. Seen by Mitch Cota PA-C. The patient reports no increase in his ulcer drainage from his bilateral lower extremity diabetic ulcers. He has not scheduled an appointment to see his PCP to address his consistently high blood sugars. 11/13/17. Seen by Mitch Cota PA-C. The patient reports stable drainage from his diabetic foot ulcers and continued difficulty keeping his blood sugars below 150. He also reports not wearing his diabetic shoes when at home. 11/09/17. Seen by Mitch Cota PA-C. The patient reports high blood sugars again this week. He does not report increased drainage though he notes callous formation continues to happen quickly between visits. 11/06/17. Seen by Dr. Howe. The patient does not report increased drainage associated with the chronic bilateral diabetic foot ulcers since the last visit. 11/02/17. Seen by Mitch Cota PA-C. The patient reports no increased drainage from his bilateral diabetic foot ulcers. He is not surprised that his blood sugar is low this morning as he did not eat dinner yesterday or breakfast today, citing mild GI discomfort. 10/30/17. Seen by Dr. Howe. The patient missed a few appointments recently due to our facility power outage however he does not report increased drainage or other acute issues regarding his bilateral first MTPJ plantar foot diabetic ulcers. 10/23/17. Seen by Mitch Cota PA-C. The patient reports that he did not take his insulin, or eat this morning. Drainage from his diabetic foot ulcers has been stable. 10/15/17. Seen by Mitch Cota PA-C. The patient reports high blood sugars this week and stable drainage from his foot ulcers. 10/13/17. Seen by Dr. Howe. The patient does not report increased drainage associated with the bilateral plantar foot diabetic ulcers since his last visit. 10/01/17. Seen by Dr. Howe. The patient does not report increased drainage associated with either left or right plantar foot diabetic ulcers since his last visit. 10/01/17. Seen by Dr. Howe. The patient does not report increased drainage associated with either left or right plantar foot diabetic ulcers since his last visit. 09/28/17. Seen by Dr. Howe. The patient does not report increased drainage associated with either left or right plantar foot diabetic ulcers since his last visit. He has been offloading as recommended as well. 09/24/17. Seen by Dr. Howe. The patient reports some increased drainage associated with the right chronic diabetic foot ulcer but none with the left chronic diabetic foot ulcer since his last visit. His blood sugars have been well controlled and he does not report pain in either feet or fevers or feeling unwell. He had been seen twice weekly due to the recent deterioration of the right foot ulcer and need for frequent debridement of the periulcer callus. 09/16/17. Seen by Dr. Howe. The patient does not report significant drainage associated with the bilateral plantar foot diabetic ulcers since last visit and his blood sugars are well controlled over the past week. 09/11/17. Seen by Dr. Howe. The patient states that the right foot diabetic ulcer bled significantly earlier this week when he got out of the shower. He had his INR checked yesterday and it was 3.5. He does not report increased drainage otherwise from either the left or right foot diabetic ulcers since his last visit. He's been seen as twice weekly for the past 2 weeks due to the very heavy accumulation of callus associated with the right foot ulcer. 09/08/17. Seen by Dr. Howe. The patient does not report increased drainage associated with bilateral foot diabetic ulcers since his last visit. 09/04/17. Seen by Dr. Howe. The patient does not report significant drainage associated with the bilateral plantar foot diabetic ulcers since last visit and his blood sugars are well controlled over the past week. 08/31/17. Seen by Dr. Howe. The patient does not report increased drainage associated with the bilateral plantar foot diabetic ulcers since his last visit and he continues on doxycycline for the positive right foot ulcer wound culture. His blood sugars have been well- controlled for the past week and he has had no further episodes of hypoglycemia. 08/26/17. Seen by Dr. Howe. The patient is now on doxycycline resistant MSSA positive wound culture taken from his right diabetic foot ulcer and does not report other side effects. He has picked up his new diabetic shoes and is wearing them as recommended. His blood sugar today is 58 in clinic and he has recently had his short-acting insulin increased by his primary care provider due to frequent episodes of hyperglycemia. He is scheduled to see his PCP again tomorrow to discuss the changes. 08/18/17. Seen by Mitch Cota PA-C. The patient reports a foul odor from his bilateral foot ulcers. He reports that he is feeling much better after an ER trip for hypoxia and his recent O2 saturation readings have been 100%. 08/06/17. Seen by Dr. Howe. The patient reports feeling unwell along with progressive shortness of breath while at rest over the past week. He says he had a low- grade fever at home today and staff report is O2 sats in low 90s upon arrival. He has a history of COPD also with possible admission for pneumonia within the past year. He is here for review of chronic diabetic foot ulcers that have been relatively stable for the past few weeks. 07/28/17. Seen by Mitch Cota PA-C. The patient reports increased drainage and bleeding from his diabetic foot ulcers. 07/20/17. Seen by Mitch Cota PA-C. The patient reports no increase in ulcer drainage since his last evaluation. 07/16/17. Seen by Mitch Cota PA-C. The patient has recently been in hospital where he had a NON-STEMI. He reports a reduction in drainage and wound odor after starting Augmentin. 07/01/17. Seen by Dr. Howe. The patient does not report significant drainage associated with the chronic bilateral plantar foot diabetic ulcers since his last visit. He will be picking up his new diabetic shoes today noting his partial right lateral foot amputation and multiple bilateral toe amputations plus Charcot deformity of both feet are contributing significantly to the recurrent heavy callus formation in the apollo-ulcer areas. He also states that he has not been covering his feet when he is in the shower despite our recommendation to do so. 06/19/17. Seen by Dr. Howe. The patient does not report significant drainage associated with the chronic bilateral plantar MTPJ diabetic ulcers since his last visit. Of note , the patient's blood sugar is 42 in clinic and was 35 earlier this morning. He's mildly symptomatic and is with his son who states the patient's food intake has been a bit less than usual due to limited funds at the end of the month. The patient also admits to trying to keep his blood sugars below 140 at all times and has had the problem of hypoglycemia in our clinic a number of times over the past year. 06/12/17. Seen by Dr. Howe. The patient does not report significant drainage associated with the chronic bilateral plantar MTPJ diabetic ulcers since his last visit. 06/05/17. Seen by Dr. Howe. The patient does not report significant drainage associated with the chronic bilateral plantar MTPJ diabetic ulcers since his last visit. He continues on Augmentin based on the recent wound culture and does not report adverse side effects. He also was seen by Dr. Garcia and his new diabetic shoes have been ordered noting his significant history of right lateral foot amputation and multiple toe amputations plus bilateral Charcot deformities. 05/29/17. Seen by Dr. Howe. The patient's wound culture from 2 days ago of a new right foot diabetic ulcer grew Streptococcus as well as Staph. He does not report increased drainage from this ulcer nor the chronic left foot diabetic ulcer. He is also not yet been seen by podiatry although we did send the referral over a couple weeks ago. His blood sugars continue to be well controlled and of note he has had extensive amputations of both the lateral aspect of the right foot as well as toes on both feet which has contributed significantly to recurrent callus and diabetic ulcer formation. 05/27/17. Seen by Mitch Cota PA-C. The patient reports a new ulcer to his right great toe that he believes has been continuously present for about a week. He denies any trauma to the area though states he may have been walking more lately. He is insensate and notes no pain, though he has seen purulent drainage in the area and notes a foul odor. 05/12/17. Seen by Dr. Howe. The patient does not report significant drainage associated with the chronic left plantar foot diabetic ulcer and he notes that heavy callus again has formed on the right plantar foot surface at the site of his recently healed diabetic ulcer. He has severe bilateral Charcot deformities along with multiple toe amputations that are contributing significantly to health information and the refractory and recurrent nature of his diabetic foot ulcers. He's also asked for us to address his toe nails today as it's been weeks since they've been trimmed. 05/05/17. Seen by Dr. Howe. The patient presents today with low blood sugars in the 40's and states he is feeling unwell in the waiting room. Upon my review he is lucid and eating and his blood sugars have increased into the 50s. He does not report any new problems regarding his chronic left foot diabetic ulcer and states that he has not discussed his hypoglycemia with his primary care provider yet despite having a number of episodes throughout the month. 04/28/17. Seen by Dr. Howe. The patient reports recurrence of his left plantar foot diabetic ulcer over the past week along with some new drainage that's quite malodorous. He does not report pain in the foot nor fevers nor any acute issues regarding his right lateral foot diabetic ulcer. He states his blood sugars continue to be well controlled with most below 120. 04/21/17. Seen by Dr. Howe. The patient does not report pain or drainage associated with the chronic right foot diabetic ulcers since his last visit. 04/14/17. Seen by Dr. Howe. The patient does not report pain or drainage associated with the chronic right foot diabetic ulcers since his last visit. His work diabetic shoe as recommended noting he is a partial right foot and right second toe amputations along with a significant Charcot deformity. 04/07/17. Seen by Dr. Howe. The patient does not report significant drainage or pain associated with the chronic right lower leg diabetic ulcers since his last visit. He snoring softly and she was recommended and reports his blood sugars have been well controlled. Of note, his significant deformity of the right foot including partial lateral amputation as well as second toe amputation and a significant Charcot deformity. 04/02/17. Seen by Dr. Howe. The patient reports that a coin accidentally fell into his right lower leg total contact cast a couple days ago. The staff found a johnson upon removing the cast as well as a new ulcer over the lateral aspect of the right foot. The patient does not report pain at the site nor does staff report significant drainage associated with new ulcer nor the chronic right plantar foot diabetic ulcer. The patient's blood sugars continue to be well controlled and he has no other acute complaints at this time. 03/28/17. Seen by Mitch Cota PA-C. The patient's recent wound culture demonstrated no growth. He has not noted increased drainage since his last evaluation. 03/23/17. Seen by Mitch Cota PA-C. The patient reports no increase in right foot ulcer drainage since his last evaluation. In addition his wound culture demonstrated no growth. 03/17/17. Seen by Dr. Howe. The patient does not report increased drainage associated with the chronic right first MTPJ diabetic ulcer.He completed his course of antibiotics that was treating the recent positive wound culture and does not report adverse side effects. He continues offload with a surgical shoe as well. 03/09/17. Seen by Dr. Howe. The patient does not report pain or significant drainage associated with the recurrent right foot diabetic ulcer. His culture of the ulcer was positive for a staph organism and Acinetobacter however he's not yet been started on antibiotics. He states his blood sugars continue to be well-controlled with most below 150. 03/02/17. Seen by Mitch Cota PA-C. The patient reports no improvement in drainage from his diabetic ulcer of the right foot. He has noted odor at times coming from the ulcer. 02/23/17. Seen by Mitch Cota PA-C. The patient reports no increase in drainage from his diabetic ulcer of the right foot. 02/09/17. Seen by Mitch Cota PA-C. The patient reports that he has just begun taking Bactrim for his infection of his right foot diabetic ulcer. He reports continued purulent drainage and odor. 02/02/17. Seen by Mitch Cota PA-C. The patient returns to our clinic with a new ulcer of his right first metatarsal head. He reportedly smacked his foot hard on the floor, creating this ulcer, in an attempt to stop an episode of neuropathy. 11/10/16. Seen by Mitch Cota PA-C. The patient returns for evaluation of his recently healed ulcer, fearing that it is open again. He has not seen liquid drainage but fears it is draining under the callous. 11/04/16. Seen by Mitch Cota PA-C. The patient does not report any difficulties with his TCC this week. 10/24/16. Seen by Dr. Howe. The patient does not report any problems regarding his TCC and staff do not repot significant drainage on the dressing overlying the left plantar foot diabetic ulcer. His blood sugars remain well controlled with most below 150. 10/20/16 Seen by Mitch Cota PA-C. The patient is here for placement of a TCC to offload his left plantar foot diabetic ulcer. He notes that the drainage from his ulcer has soaked through the TCC under-layers and almost soaked through the cast. 10/15/16. Seen by Dr. Howe. The patient tolerated his TCC with minimal discomfort noting mild pain in the left 1st toe. The staff do not report significant drainage associated with the chronic left plantar foot diabetic ulcer and he states his blood sugars are mostly below 150. He's now been placed in a TCC to optimize offloading needed to accommodate for the left foot Charcot deformity that's lead to recurrent heavy callus formation in the periulcer area. 10/13/16 Seen by Mitch Cota PA-C. The patient reports no increase in drainage from his left foot diabetic non-pressure ulcer since his last evaluation. 09/29/15 Seen by Mitch Cota PA-C. The patient reports no increase in drainage from his chronic left foot diabetic ulcer. He does voice frustration that his wound is taking so long to heal. 09/19/16. Seen by Dr. Howe. The patient does not report increased drainage or other acute issues regarding his chronic left plantar foot diabetic ulcer since his last visit. 09/12/16. Seen by Dr. Howe. The patient does not report significant drainage associated with the chronic left plantar foot diabetic ulcer over the past week. He's applying Kerasal to the periwound callus as recommended and has limited his walking considerably, in addition to wearing an offloading shoe, to minimize callus formation. His blood sugars also remain well controlled with most below 150 and he continues on Bactrim for an infection of the ulcer without reporting adverse side effects. 09/05/16. Seen by Dr. Howe. The patient returns to clinic with recurrent of his left plantar foot diabetic ulcer that he states reopened about 2 weeks ago. He was placed on Keflex by his PCP yesterday due to the appearance of the ulcer and significant drainage. He states his blood sugars are well controlled and he limits his walking to help facilitate offloading. 07/28/16. Seen by Dr. Howe. The patient does not report significant drainage associated with the chronic left plantar foot diabetic ulcer over the past week. He's applying Kerasal to the periwound callus as recommended and states his blood sugars are consistently below 150. He does report ongoing nausea for the past few weeks and states he's on 3 nausea medications but does not know what's causing it. He's working with his PCP on this problem. 07/15/16 Seen by Mitch Cota PA-C. The patient reports no fever chills or pain from his left foot diabetic ulcer since his last evaluation. 07/10/16. Seen by Dr. Howe. The patient does not report significant drainage associated with the chronic left plantar foot diabetic ulcer over the past week. He's applying Kerasal to the periwound callus as recommended and has limited his walking considerably, in addition to wearing an offloading shoe, to minimize callus formation. 07/08/16 Seen by Mitch Cota PA-C. The patient reports no increase in pain or drainage from his ulcer, though he does report nausea and vomiting. After further review, it appears that his PPI prescription has run out and he stopped it abruptly. He has not had associated fever, chills or lower GI symptoms. His blood sugars have reportedly been above 150 this week. The patient reports that he still has problems with callous formation on his feet and will be seeing podiatry. 07/04/16. Seen by Dr. Howe. The patient does not report significant drainage associated with the chronic left plantar foot diabetic ulcer since his last visit. He does report significant nausea and vomiting over the past week however but does not report fever, cough, or other specific symptoms and feels the nausea has started to improve as of yesterday. He states his blood sugars have been well controlled with most below 150 and he's on Augmentin for the recent MSSA and Strep positive wound culture. He's also been applying Kerasal to the periwound callus as recommended and has been limited in his walking the past week due to illness. 06/23/16 Seeb by Mitch Cota PA-C. The patient reports that he believes he has an infection in his foot because his dog has been sniffing and licking his open ulcer. He believes his dog has a nose for infection. He reports a continuous, strong, foul odor from his left plantar foot ulcer for the past 3 days with an associated increase in drainage. In addition he has not been offloading his foot as instructed and is going barefoot at home. 06/16/16 Seen by Mitch Cota PA-C. The patient reports that he is walking barefoot in the house and only wears shoes outside the house. His left foot diabetic ulcer drainage has been stable. 06/02/16 Seen by Mitch Cota PA-C. The patient reports that he is due to have a new orthotic fitted for his deformed left foot to further offload his chronic left foot ulcer. He reports stable drainage from this ulcer. 05/27/16 Seen by Mitch Cota PA-C. The patient reports that he now has a new wound near his chronic left plantar foot diabetic ulcer. The new wound began spontaneously and was noted today. His chronic ulcer has had stable drainage. 05/19/16. Seen by Dr. Howe. The patient does not report significant drainage associated with the chronic left plant foot diabetic ulcer over the past week and he states his blood sugars are well controlled with most below 150. 05/12/16. Seen by Dr. Howe. The patient reports some new pain along the right foot surgical scar but no swelling or drainage from the site. He does not recall injuring the foot and feels he may have been more active over the past week. He does not report significant or drainage associated with the left plantar foot diabetic ulcer and states he's not been able to check his blood sugars due to the fact he ran out of glucometer strips this past week. His blood sugar today is 280. 04/11/16. Seen by Dr. Howe. The patient does not report pain or drainage associated with the chronic right lateral foot diabetic ulcer of the past week. He states his blood sugars are consistently below 150 and he is wearing his offloading shoe is recommended. 04/04/16. Seen by Dr. Howe. 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 He states his blood sugars are mostly below 150 and he's offloading using a surgical offloading shoe. He's now off of antibiotics and is here today with his granddaughter who's assisting with his care. 03/31/16 Seen by Mitch Cota PA-C. The patient has returned from [facility] where he had a 4th ray amputation performed to his right foot. He reports that he was supposed to have follow up appointments with surgery, cardiology and wound care but has not attended any of these appointments due to transportation difficulties. He is unsure of when his sutures are supposed to be removed. 02/28/16 Seen by Mitch Cota PA-C. The patient was seen at [facility] and evaluated by Dr. Monae on an urgent basis as arranged by Dr. Howe at his last visit. The patient reports that Dr. Monae wanted to urgently take him to surgery but the patient would prefer to have Dr. Garcia do it and refused admission to the hospital. 02/21/[address] Howe. The patient does not report pain or significant drainage associated with the Alonzo grade 3 right lateral foot diabetic ulcer and he saw Dr. Garcia , podiatry, this morning who reportedly states she's not able to perform any additional debridement until his right leg vascular status is further evaluated. He had an arterial Doppler scheduled yesterday however both the patient and his son state they were unaware of the appointment. He started taking his Augmentin, which is treating the MSSA and Strep viridans culture from 02/15/16, following the last visit as recommended, states his blood sugars have been consistently below 150 over the past week, and he's offloading by wearing a surgical shoe and significantly limiting his walking. Of note, he's still on supplemental oxygen following his recent hospital discharge and gets short of breath on minimal exertion. Please see my note below from his last visit regarding details of the admission and amputation. 02/15/[address] Howe. The patient does not report pain associated with the right lateral foot diabetic ulcer. He was discharged 4 days ago following a partial ray amputation of the 5th toe and MT due a progressive foot infection that he states occurred over about 2 days prior to being admitted to the hospital. His wound culture on arrival to the ER was polymicrobial and reported on Group C Strep. He was treated with IV Zosyn during the admission and prescribed Augmentin on discharge however he's not yet picked up the prescription. His blood sugars have been relatively well controlled with most below 150 since discharge. Of note, he also had a non-ST elevation UT post-operatively, acute on chronic renal failure with a Cr of 1.8 on discharge, and acute respiratory failure and continues on supplemental oxygen. 12/27/[address] Howe. The patient does not report drainage or pain associated with the chronic right plantar foot diabetic ulcer over the past week. He's not been applying Kerasal to the associated callus as recommended however he does not have diabetic shoes and a new AFO that he's been wearing. His blood sugars also remain relatively well controlled below 150 consistently. 12/06/[address] Howe. The patient does not report pain or significant drainage from the chronic right plantar foot diabetic ulcer. His blood sugars remain well controlled around 120 and he's now wearing his new diabetic shoes and offloading by limiting his walking significantly. He's also applying Kerasal daily to the right foot calluses as recommended. 11/29/[address] Howe. The patient does not report significant drainage from the chronic right plantar foot diabetic ulcer and he states his blood sugars remain well controlled below 150. He's also wearing his diabetic shoes now and limiting his walking to facilitate offloading. 11/23/[address] Howe. The patient reports moderate drainage but no pain associated with the chronic right plantar foot diabetic ulcer. He continues on doxycycline for a polymicrobial positive wound culture and he states his blood sugars remain well controlled with most below 120. 11/15/[address] Howe. The patient's wound culture from the last visit grew Enterobacter, Staph, and group G Strep however he's not yet picked up his prescription for doxycycline. He has at least moderate serosanquinous drainage on the dressing and states he's been a bit more active this past week as his son has been sick and unable to do the shopping. His blood sugar was also elevated yesterday near 200 but has been relatively well controlled prior to that. 11/08/15 Seen by Mitch Cota PA-C. The patient reports that his son is sick and he has been up on his feet taking care of him and has been unable to stay off of his feet. He has noted more drainage from his right plantar foot diabetic ulcer in the past few days. He also reports that his current shoes with inserts are making a large callous on his right heel and he doesn't feel that they offload his ulcer, so he has been trying to walk on the lateral edge of his right foot to offload his ulcer, and now is having lateral right foot pain as a result. 11/01/[address] Howe. The patient admits to being more active over the past two weeks but states there's only been very minimal drainage from the right plantar foot diabetic ulcer. His blood sugars also remain well controlled below 150 consistently. 10/18/[address] Howe. The patient does not report drainage from the right foot plantar diabetic ulcer however he states he has been more active the past week in terms of walking. His blood sugars also remain well controlled below 150. 10/11/[address] Howe. The patient does not report pain or drainage associated with the right plantar foot nor heel diabetic ulcers. 10/04/[address] Howe. The patient does not report drainage from the right plantar foot diabetic ulcer and he continues to use Kerasal daily for the significant right heel callus. His blood sugars are also well controlled below 120 consistently. 09/27/[address] Howe. The patient reports only minimal drainage from the right plantar foot diabetic ulcer and states his blood sugars continue to improve with most between 120 and 180. He's also applying Kerasal to the bilateral foot calluses daily as we've requested. 09/19/[address] Howe. The patient reports significantly decreased drainage from the right plantar foot diabetic ulcer and he'll complete his course of levofloxacin today that treating the polymicrobial wound culture from 09/04/15. His blood sugars are also much better controlled over the past week with most around 150 and very few over 200. 09/12/[address] Howe. The patient continues to report significant drainage from the right plantar diabetic foot ulcer and his wound culture from 09/04/15 grew Strep , Providencia, and Neisseria species. He's now on levofloxacin and does not report adverse effects. He's also no longer experiencing severe hypoglycemic episodes and is working closely with is PCP on adjusting his insulin regimen. His blood sugars due tend to remain over 200 however. 09/07/[address] Howe. The patient continues to report blood sugars as low as the 40's since our visit last week. Regarding his foot ulcers, he reports continued foul smelling drainage from the right foot diabetic ulcer but none from right heel or left foot diabetic ulcer. His blood sugars also may be as high as 300 and he states he's compliant with his diabetes medication regimen and will require as much as 30-40 units of short acting insulin on occasion. He does not report pain in the feet nor fevers or other systemic symptoms. 08/31/[address] Howe. The patient is new to our clinic. On arrival he was not feeling well and was tremulous. The MA checked his blood sugar and is registered 34 which is the lowest the glucometer would read. I spoke with him and he reported feeling very unwell at which time he was urgently transferred to the ER. Of note, he was in the clinic to review bilateral diabetic foot ulcers. He'd also recently lost a son and has been very upset the past week according to staff. Past Medical History This information was obtained from the patient Patient has a medical history of: Chronic Obstructive Pulmonary Disease (COPD) Type II Diabetes (A1c 7.4 on 11/12/2015) PAD Peripheral neuropathy Hypoglycemia CVA Diabetic foot ulcer (Right plantar 1st MTPJ, Alonzo grade II) Coronary Artery Disease (CAD) (s/p UT during admission on 02/04/2016) Lumbar strain CHF Hyperlipidemia CKD stage 3 Gout Diabetic foot ulcer - 02/04/2016 (right lateral foot s/p partial ray amputation; Alonzo grade 3; MSSA and Strep viridans cultured) Complaints and Symptoms This information was obtained from the patient Patient complains of: General Notes: I have reviewed and concur with the Review of Systems and Past Family Social History documents completed by the clinician, I have reviewed and concur with the Wound Assessment document completed by the clinician Cardiovascular (Central): Dyspnea on Exertion Ear/Nose/Mouth/Throat: Hearing Loss / Aid Integumentary (Hair/Skin/Nails): Open Sore Musculoskeletal: Assistive Devices, Deformities Neurological: Loss of Protective Sensation Prior Wound History: Drainage, Erythema, Malodor Patient denies complaints or symptoms related to: Cardiovascular (Central/Peripheral): Intermittent Claudication, Lower extremity (leg) resting pain Constitutional Symptoms (General Health): Chills, Fever Gastrointestinal (GI): Nausea / Vomiting, Stomach/abdominal pain Hematologic/Lymphatic: Bleeding / Clotting Disorders, Bleeding Tendency Musculoskeletal: Muscle Weakness Prior Wound History: Bleeding, Pain Psychiatric: Anxiety, Memory Loss Respiratory: Oxygen Use, Shortness of Breath Additional Information Does patient have a history of Cancer? Yes? Complete all questions.: Yes Location of Cancer: Skin cancer Patient underwent Radiation Treatment? If yes, answer question below.: No OBJECTIVE Constitutional BP elevated; Afebrile; Alert and in no distress. Well developed. Alert. Clean appearing.. Height/Length: 72 in (182.88 cm), Weight: 216.1 lbs (98.23 kgs), BMI: 29.3, Temperature: 98.1 ?F (36.72 ?C), Pulse: 63 bpm, Respiratory Rate: 18 breaths/min, Blood Pressure: 158/72 mmHg, Capillary Blood Glucose: 136 mg/dl, Pulse Oximetry: 96 %. Vital Signs Notes: Per Patient Glucose. Ears, Nose, Mouth, and Throat: Mild hearing deficit. Respiratory: No respiratory distress. Even respirations and without use of accessory muscles.. Cardiovascular: Affected extremity exhibits no peripheral edema or cyanosis, is warm, and is well perfused. Capillary refill is less than 2 seconds. Musculoskeletal: Right lateral foot partial amputation. Integumentary (Hair, Skin) Refer to appropriate clinician wound documentation for this visit; right and left foot ulcers extend to subcut with bases partially covered with pink granulation, remainder fibrin and slough. Significant amount of callus in the periulcer areas. Wound #11 Left Metatarsal head first is a chronic Alonzo Grade 2 Diabetic Ulcer and has received a status of Not Healed. Subsequent wound encounter measurements are 1.6cm length x 1.2cm width x 0.5cm depth, with an area of 1.92 sq cm and a volume of 0.96 cubic cm. No tunneling has been noted. No sinus tract has been noted. No undermining has been noted. There is a large amount of sero-sanguineous drainage noted which has no odor. The patient reports no wound pain due to the wound being insensate. The wound margin is callus. Wound bed has Yes epithelialization, No eschar, No slough, Yes bright red, spongy granulation. The periwound skin color is normal. The periwound skin exhibited: Callus, Moist , Maceration. The periwound skin did not exhibit: Brawny Induration, Edema, Excoriation, Induration, Crepitus, Fluctuance, Friable, Rash, Dry/Scaly. The temperature of the periwound skin is WNL. Periwound skin does not exhibit signs or symptoms of infection. Local Pulse is Palpable. Wound #12 Right, Plantar Metatarsal head first is a Alonzo Grade 2 Diabetic Ulcer and has received a status of Not Healed. Subsequent wound encounter measurements are 2.2cm length x 1.6cm width x 0.3cm depth, with an area of 3.52 sq cm and a volume of 1.056 cubic cm. No tunneling has been noted. No sinus tract has been noted. No undermining has been noted. There is a large amount of sero-sanguineous drainage noted which has no odor. The patient reports no wound pain due to the wound being insensate. The wound margin is callus. Wound bed has Yes epithelialization, No eschar, No slough, Yes bright red, pink , spongy granulation. The periwound skin exhibited: Callus, Moist, Maceration, Erythema. The periwound skin did not exhibit: Brawny Induration, Edema, Excoriation, Induration, Crepitus, Fluctuance , Friable, Rash, Dry/Scaly, Atrophie Yola, Cyanosis, Ecchymosis, Hemosiderosis, Pallor, Rubor. The temperature of the periwound skin is WNL. Periwound skin does not exhibit signs or symptoms of infection. Local Pulse is Normal. Neurological: Cranial nerves grossly intact with symmetric function normal by informal observation.. ASSESSMENT Active Problems ICD-10 (Encounter Diagnosis) L97.522 - Non-pressure chronic ulcer of other part of left foot with fat layer exposed (Encounter Diagnosis) L97.512 - Non-pressure chronic ulcer of other part of right foot with fat layer exposed (Encounter Diagnosis) E11.621 - Type 2 diabetes mellitus with foot ulcer (Encounter Diagnosis) M21.6X1 - Other acquired deformities of right foot PROCEDURES Wound #11 Wound #11 (Diabetic Ulcer) is located on the left metatarsal head first. A skin/ subcutaneous tissue level surgical debridement with a total area debrided of 1.92 sq cm was performed by Nando Howe MD. Subcutaneous was removed along with devitalized tissue: callus and slough. The following instrument(s) were used: curette. Pain control was achieved using 4% Lido. A time out was conducted prior to the start of the procedure. A minimal amount of bleeding was controlled with n/a. The procedure was tolerated well with a pain level of 0 throughout and a pain level of 0 following the procedure. Post Debridement Measurements: 1.6cm length x 1.2cm width x 0.6cm depth; with an area of 1.92 sq cm and a volume of 1.152 cubic cm; Wound #12 Wound #12 (Diabetic Ulcer) is located on the right, plantar metatarsal head first. A skin/subcutaneous tissue level surgical debridement with a total area debrided of 3.52 sq cm was performed by Nando Howe MD. Subcutaneous was removed along with devitalized tissue: callus and slough. The following instrument(s) were used: curette. Pain control was achieved using 4% Lido. A time out was conducted prior to the start of the procedure. A minimal amount of bleeding was controlled with n/a. The procedure was tolerated well with a pain level of 0 throughout and a pain level of 0 following the procedure. Post Debridement Measurements: 2.2cm length x 1.6cm width x 0.4cm depth; with an area of 3.52 sq cm and a volume of 1.408 cubic cm; Wound #12 (Diabetic Ulcer) is located on the right, plantar metatarsal head first. A Total Contact Cast procedure was performed by Nando Howe MD. General Notes: TCC applied to right leg as per protocol. Additional Information Muscle fascia or bone removed and sent to pathology?: No Muscle fascia or bone removed and sent to pathology?: No PLAN Wound Orders: Wound #11 Left Metatarsal head first Anesthetic Topical Xylocaine to wound bed. - In clinic only. Cleanser Cleanse Wound: - Normal saline and gauze, may use distilled water at home. May Shower. - Keep covered in shower with cast protector or plastic bag. Topical Treatments Antibiotic/Antimicrobial Ointment/Cream. - Gentamicin. Dressings Primary dressing: - Shipman donut pad surrounding wound. May leave pad in place during dressing changes. Cover and secure with: - Foam and hypafix tape. Change Dressing: - Daily. Wound #12 Right, Plantar Metatarsal head first Anesthetic Topical Xylocaine to wound bed. - In clinic only. Cleanser Cleanse Wound: - Normal saline and gauze, may use distilled water at home. May Shower. - Keep covered in shower with cast protector or plastic bag. Topical Treatments Antibiotic/Antimicrobial Ointment/Cream. - Gentamicin. Dressings Primary dressing: - Shipman donut pad surrounding wound. May leave pad in place during dressing changes. Cover and secure with: - Foam and hypafix tape. Change Dressing: - Daily. Additional Orders: Off-Loading Keep weight off: - Both feet as much as possible. Total Contact Cast - To Right leg Follow-Up Appointments Return Appointment: - - for TCC Other information: If you develop fever, chills, increased pain, drainage, redness or swelling please call our office. If after hours, respond to the ER. Should you experience any significant changes in your wound(s) or have any questions regarding your home care instructions please contact the wound center @ [phone]. If after hours, contact your primary care physician or go to the hospital emergency room. Scribing Attestation I attest, as the nurse, that I scribed these orders for the physician. I've reviewed the clinician's documentation and agree with the evaluation and plan as written. In addition the patient's ulcers demonstrate evidence of non-viable devitalized tissue and they will continue to benefit from sharp debridement to help promote granulation and expedite healing. Also, I placed a TCC on the right lower leg today and we'll review the right foot ulcer again in 2 days. Electronic Signature(s) Signed By: Date: Nando Howe MD 05/04/2018 16:47:11 Entered By: Nando Howe on 05/04/2018 16:35:50
== END ==
PROVIDERS: Family Provider Physician Assistant Medical; PCP Physician Assistant Medical; Visit Provider Internal Medicine
DX: E11.621 Type 2 diabetes mellitus with foot ulcer (principal); L97.522 Non-pressure chronic ulcer of other part of left foot with fat layer exposed; L97.512 Non-pressure chronic ulcer of other part of right foot with fat layer exposed; M21.6X1 Other acquired deformities of right foot
CPT/HCPCS: 11042

== ENCOUNTER → 2018-05-06 09:49 | Outpatient (CLI) | payer MEDICARE, SELFPAY ==
--- NOTE | 2018-05-06 | OV.WND_ITS ---
Progress Note Details Patient Name: Nick Drake Patient Number: [id number] PatientPatientDate: 05/06/2018 Clinician: Lacy Malone Clinician Cosigner: Mary Rosales Physician / Assistant Food Service Manager: Nando Howe SUBJECTIVE Chief Complaint This information was obtained from the patient Diabetic ulcers to right and left foot. Allergies Minipress (Severity: Severe, Reaction: violent behavior), Vicodin (Severity: Mild, Reaction: itching), nortriptyline (Severity: Moderate), Avandia (Severity: Moderate) HPI This information was obtained from the patient 05/06/18. Seen by Dr. Howe. The patient does not report any complications regarding the right foot total contact cast that was placed 2 days ago and the staff do not report increased drainage or other acute issues regarding the bilateral plantar foot diabetic ulcers. 05/03/18. Seen by Dr. Howe. The patient did not make is appointments last week due to a GI issue. He does not report increased drainage associated with the bilateral plantar 1st MTPJ diabetic ulcers since his last visit however and we're planning on placing a TCC to better offload the right foot ulcer today. Of note, he has a partial right lateral foot amputation that's contributing to heavy periulcer callus formation and the refractory nature of the ulcer. 04/23/18. Seen by Dr. Howe. The patient does not report increased drainage associated with the bilateral plantar 1st MTPJ diabetic ulcers since his last visit. He reports being sick over the past week with nausea and vomiting which has mostly resolved as of today. 04/20/18. Seen by Dr. Howe. The patient does not report increased drainage associated with the bilateral plantar 1st MTPJ diabetic ulcers since his last visit. Also, his total contact cast was ordered but is not available today. It's to be placed on the right lower leg to better facilitate offloading in light of his partial right lateral foot amputation that's contributing significantly to callus formation and the refractory nature of the right foot ulcer. He also missed his appointment with cardiology on 04/07 to discuss intervention for his bilateral lower leg PAD which is also complicating his wound healing. 04/13/18. Seen by Dr. Howe. The patient does not report increased drainage associated with the bilateral plantar 1st MTPJ diabetic ulcers since his last visit. He states he's wearing his right lower leg [place] boot as recommended which is offloading the ulcer and addressing the partial right foot amputation which contributes considerably to recurrent and heavy callus formation. 04/09/18. Seen by Dr. Howe. The patient does not report increased drainage associated with the bilateral plantar 1st MTPJ diabetic ulcers since his last visit. His blood sugar is 226 today and he admits to eating some candy yesterday. 04/06/18. Seen by Dr. Howe. The patient does not report increased drainage associated with the bilateral plantar 1st MTPJ diabetic ulcers since his last visit. His bilateral arterial Doppler performed in February showed possible clinically significant PAD with a high grade stenosis of the right SFA and possible left common femoral inflow obstruction and bilateral lower leg with monophasic flow noted. He does not report rest pain nor claudication however he' s very limited in his mobility due to the plantar foot diabetic ulcers. 04/02/18. Seen by Dr. Howe. The patient continues to wear his [place] boot to offload the right foot 1st MTPJ diabetic ulcer and address the significant deformity associated with the partial lateral foot amputation and he does not report increased drainage associated with this ulcer nor the left plantar foot diabetic ulcer since his last. His wound culture from the last visit grew Staph and group G Strep and he's not currently on antibiotics. 03/30/18. Seen by Dr. Howe. The patient missed his last two appointments and states over the 24 of March he was wearing socks on his deck and noticed bleeding from the bilateral diabetic foot ulcers. His blood sugars are over 400 today and he's run our of insulin and glucose strips. He does not report pain associated with the ulcers and notes he's not wearing his [place] boot on the right foot at all times as recommended. He has a right partial foot amputation and Charcot deformity of both feet. 03/22/18. Seen by Dr. Howe. The patient continues to wear his [place] boot to offload the right foot 1st MTPJ diabetic ulcer and address the significant deformity associated with the partial lateral foot amputation and he does not report increased drainage associated with this ulcer nor the left plantar foot diabetic ulcer since his last. 03/15/18. Seen by Mitch Cota PA-C. The patient reports that he is compliant with his [place] boot but notes increased bleeding and drainage seen in the boot. 03/11/18. Seen by Mitch Cota PA-C. The patient reports stable drainage from his diabetic foot ulcers. His blood sugars continue to be above 150 this week. 03/04/18. Seen by Dr. Howe. The patient continues to wear his [place] boot to offload the right foot 1st MTPJ diabetic ulcer and address the significant deformity associated with the partial lateral foot amputation and he does not report increased drainage associated with this ulcer nor the left plantar foot diabetic ulcer since his last. He recently completed a course of doxycycline to treat a group G Strep positive culture and is applying iodosorb to the ulcers to help manage the persistent drainage. 03/01/18. Seen by Dr. Howe. The patient continues to wear his [place] boot to offload the right foot 1st MTPJ diabetic ulcer and address the significant deformity associated with the partial lateral foot amputation. He does not report significant drainage associated with this ulcer nor the left plantar foot diabetic ulcer since his last. 02/25/18. Seen by Dr. Howe. The patient will complete his course of doxycycline today that's treating the Staph and group G Strep positive culture taken from the right foot diabetic ulcer. He does not report adverse side effects and nor significant drainage from the ulcer or the left plantar foot diabetic ulcer. 02/22/18. Seen by Dr. Howe. The patient is now on doxycycline for the Staph and group G Strep positive culture taken from the right foot diabetic ulcer last week. He notes some bloody drainage from this site on his dressing today but feels this ulcer and the left foot diabetic ulcer have improved over the past few week. He's offloading the right foot which has a partial lateral amputation using his [place] boot as recommended however he's not using a frame walker. He does not report adverse side effects of the antibiotics nor other acute issues today. 02/18/18. Seen by Dr. Howe. The staff report increased drainage associated with both plantar foot 1st MTPJ diabetic ulcers and the patient reports a malodor from the dressings over the past week. He does not report fevers, feeling unwell, or pain in the feet but states his blood sugars have been a bit elevated in the 180s. He's also wearing his [place] boot as recommended on the right foot but states he does not have enough room in his house to use a knee scooter and does not use his frame walker. 02/11/18. Seen by Dr. Howe. The patient continues to wear his [place] boot to offload the right foot 1st MTPJ diabetic ulcer and address the significant deformity associated with the partial lateral foot amputation. He does not report significant drainage associated with this ulcer nor the left plantar foot diabetic ulcer since his last visit however the nurse states the mole skin dressing was applied inappropriately over the left foot ulcer and was overlying the ulcer itself and soaked with drainage. 02/04/18. Seen by Dr. Howe. The patient continues to wear his [place] boot to offload the right foot 1st MTPJ diabetic ulcer and address the significant deformity associated with the partial lateral foot amputation. He does not report significant drainage associated with this ulcer nor the left plantar foot diabetic ulcer since his last visit. 01/28/2018. Seen by Dr. Howe. The patient is now wearing his [place] boot to offload the right foot 1st MTPJ diabetic ulcer and address the significant deformity associated with the partial lateral foot amputation. He does not report significant drainage associated with this ulcer nor the left plantar foot diabetic ulcer since his last visit. 01/26/18. Seen by Dr. Howe. The patient states he has been without his insulin for over a week which is likely the cause of his blood sugars being around 400 over the past few visits. He has also not contacted his orthotics provider regarding the offloading [place] boot to wear on the right foot noting his significant deformity caused by the partial lateral foot amputation. He has not report increased drainage or other acute changes regarding his bilateral diabetic foot ulcers and will complete his course of doxycycline its treated the recent MSSA positive culture tomorrow. He also reports nausea and one episode of emesis earlier today but not other acute issues. 01/21/2018. Seen by Dr. Howe. The patient arrived today with his right foot dressing upside down. His blood sugars are also over 400. The patient does not report increased drainage associated with the right or left diabetic foot ulcers however states his neuropathic pain has been significant over the past 2 days. He also is going to strip picker his [place] boot today to help facilitate offloading of the right foot diabetic ulcer noted in he also has a partial lateral amputation on his foot that is contributed significantly 2. Ulcer callus formation. He also continues on doxycycline for he recent MSSA positive wound culture. 01/18/2018. Seen by Dr. Howe. The patient's wound culture from the left foot diabetic ulcer grew MSSA resistant to gentamicin. He is not currently on oral antibiotics and does not report increased drainage from either left right foot diabetic ulcers and is still waiting for his [place] boot to be available to help facilitate better offloading of the right foot noting his partial lateral right foot amputation and severe Charcot deformity. 01/14/18. Seen by Dr. Howe. 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 He has severe bilateral Charcot deformities and partial right lateral foot amputation that contributes to the refractory nature of the ulcers and very heavy callus formation. 01/12/18. Seen by Dr. Howe. The patient reports moderate drainage from the right and left diabetic foot ulcers and he's seen his professor of industrial technology who's ordered a [place] boot for the right foot. He has bilateral partial lateral foot amputations which have resulted in refractory calluses of the bilateral plantar MTPJ's and associated DFU's. His blood have been well controlled and his recent hypoglycemic episodes have resolved. 01/07/18. Seen by Dr. Howe. The patient missed his last 2 appointments due to a GI illness last week and she reports some pain in the lateral aspect of the right forefoot but no increased drainage, swelling, or other acute changes of the diabetic foot ulcer. He also does not report any acute issues regarding the left diabetic foot ulcer. Of note, he has significant deformities of both feet due to partial amputations which have each contributed significantly to severe callus formation and the refractory nature of the ulcers. 01/01/18. Seen by Dr. Howe. The patient continues on clindamycin for the chronic right diabetic foot ulcer infection and it is not reported adverse side effects. He also does not report significant drainage associated with either left or right diabetic foot ulcer since his last visit. 12/28/17. Seen by Dr. Howe. The patient does not report increased drainage associated with either right or left foot diabetic ulcers since his last visit. He continues on clindamycin without reporting adverse side effects to treat the chronic right ulcer infection and his blood sugars are well controlled. Of note, he has been attending clinic twice weekly to optimize management of his recurrent and severe apollo-ulcer calluses that are in part due to his severe Charcot deformities and bilateral partial foot amputations. 12/21/17. Seen by Dr. Howe. The patient reports some drainage associated with the right foot diabetic ulcer since his last visit but none associated with the left foot diabetic ulcer. He completed his course of doxycycline today is treating the recent MSSA positive wound culture and is reported adverse side effects, fevers, feeling unwell. He states his blood sugars continue to be well controlled below 180. 12/15/17. Cinthia Howe. The patient's wound culture from the left plantar foot diabetic ulcer his last visit grew MSSA resistant to gentamicin. He does not report increased drainage or pain from either diabetic foot ulcers since his last visit. 12/10/17. Seen by REN Olea. The patient does not report increased drainage from his bilateral diabetic foot ulcers but does report continued odor. Notes a large amount of callous growth. Wound culture from last week showed MSSA and Diphtheroids. He has been applying topical gentamicin. 12/03/17. Seen by Mitch Cota PA-C. The patient reports increased drainage and odor from his bilateral diabetic foot ulcers. He continues to have elevated blood sugars. 11/26/17. Seen by Mitch Cota PA-C. The patient reports that he has decreased his usage of marijuana which he uses for recreation and to treat his neuropathy. He has not had a ground level fall since decreasing his usage. His blood sugars remain >150 and his ulcers' drainage is stable. 11/20/17. Seen by Mitch Cota PA-C. The patient reports no increase in his ulcer drainage from his bilateral lower extremity diabetic ulcers. He has not scheduled an appointment to see his PCP to address his consistently high blood sugars. 11/13/17. Seen by Mitch Cota PA-C. The patient reports stable drainage from his diabetic foot ulcers and continued difficulty keeping his blood sugars below 150. He also reports not wearing his diabetic shoes when at home. 11/09/17. Seen by Mitch Cota PA-C. The patient reports high blood sugars again this week. He does not report increased drainage though he notes callous formation continues to happen quickly between visits. 11/06/17. Seen by Dr. Howe. The patient does not report increased drainage associated with the chronic bilateral diabetic foot ulcers since the last visit. 11/02/17. Seen by Mitch Cota PA-C. The patient reports no increased drainage from his bilateral diabetic foot ulcers. He is not surprised that his blood sugar is low this morning as he did not eat dinner yesterday or breakfast today, citing mild GI discomfort. 10/30/17. Seen by Dr. Howe. The patient missed a few appointments recently due to our facility power outage however he does not report increased drainage or other acute issues regarding his bilateral first MTPJ plantar foot diabetic ulcers. 10/23/17. Seen by Mitch Cota PA-C. The patient reports that he did not take his insulin, or eat this morning. Drainage from his diabetic foot ulcers has been stable. 10/15/17. Seen by Mitch Cota PA-C. The patient reports high blood sugars this week and stable drainage from his foot ulcers. 10/13/17. Seen by Dr. Howe. The patient does not report increased drainage associated with the bilateral plantar foot diabetic ulcers since his last visit. 10/01/17. Seen by Dr. Howe. The patient does not report increased drainage associated with either left or right plantar foot diabetic ulcers since his last visit. 10/01/17. Seen by Dr. Howe. The patient does not report increased drainage associated with either left or right plantar foot diabetic ulcers since his last visit. 09/28/17. Seen by Dr. Howe. The patient does not report increased drainage associated with either left or right plantar foot diabetic ulcers since his last visit. He has been offloading as recommended as well. 09/24/17. Seen by Dr. Howe. The patient reports some increased drainage associated with the right chronic diabetic foot ulcer but none with the left chronic diabetic foot ulcer since his last visit. His blood sugars have been well controlled and he does not report pain in either feet or fevers or feeling unwell. He had been seen twice weekly due to the recent deterioration of the right foot ulcer and need for frequent debridement of the periulcer callus. 09/16/17. Seen by Dr. Howe. The patient does not report significant drainage associated with the bilateral plantar foot diabetic ulcers since last visit and his blood sugars are well controlled over the past week. 09/11/17. Seen by Dr. Howe. The patient states that the right foot diabetic ulcer bled significantly earlier this week when he got out of the shower. He had his INR checked yesterday and it was 3.5. He does not report increased drainage otherwise from either the left or right foot diabetic ulcers since his last visit. He's been seen as twice weekly for the past 2 weeks due to the very heavy accumulation of callus associated with the right foot ulcer. 09/08/17. Seen by Dr. Howe. The patient does not report increased drainage associated with bilateral foot diabetic ulcers since his last visit. 09/04/17. Seen by Dr. Howe. The patient does not report significant drainage associated with the bilateral plantar foot diabetic ulcers since last visit and his blood sugars are well controlled over the past week. 08/31/17. Seen by Dr. Howe. The patient does not report increased drainage associated with the bilateral plantar foot diabetic ulcers since his last visit and he continues on doxycycline for the positive right foot ulcer wound culture. His blood sugars have been well- controlled for the past week and he has had no further episodes of hypoglycemia. 08/26/17. Seen by Dr. Howe. The patient is now on doxycycline resistant MSSA positive wound culture taken from his right diabetic foot ulcer and does not report other side effects. He has picked up his new diabetic shoes and is wearing them as recommended. His blood sugar today is 58 in clinic and he has recently had his short-acting insulin increased by his primary care provider due to frequent episodes of hyperglycemia. He is scheduled to see his PCP again tomorrow to discuss the changes. 08/18/17. Seen by Mitch Cota PA-C. The patient reports a foul odor from his bilateral foot ulcers. He reports that he is feeling much better after an ER trip for hypoxia and his recent O2 saturation readings have been 100%. 08/06/17. Seen by Dr. Howe. The patient reports feeling unwell along with progressive shortness of breath while at rest over the past week. He says he had a low- grade fever at home today and staff report is O2 sats in low 90s upon arrival. He has a history of COPD also with possible admission for pneumonia within the past year. He is here for review of chronic diabetic foot ulcers that have been relatively stable for the past few weeks. 07/28/17. Seen by Mitch Cota PA-C. The patient reports increased drainage and bleeding from his diabetic foot ulcers. 07/20/17. Seen by Mitch Cota PA-C. The patient reports no increase in ulcer drainage since his last evaluation. 07/16/17. Seen by Mitch Cota PA-C. The patient has recently been in hospital where he had a NON-STEMI. He reports a reduction in drainage and wound odor after starting Augmentin. 07/01/17. Seen by Dr. Howe. The patient does not report significant drainage associated with the chronic bilateral plantar foot diabetic ulcers since his last visit. He will be picking up his new diabetic shoes today noting his partial right lateral foot amputation and multiple bilateral toe amputations plus Charcot deformity of both feet are contributing significantly to the recurrent heavy callus formation in the apollo-ulcer areas. He also states that he has not been covering his feet when he is in the shower despite our recommendation to do so. 06/19/17. Seen by Dr. Howe. The patient does not report significant drainage associated with the chronic bilateral plantar MTPJ diabetic ulcers since his last visit. Of note , the patient's blood sugar is 42 in clinic and was 35 earlier this morning. He's mildly symptomatic and is with his son who states the patient's food intake has been a bit less than usual due to limited funds at the end of the month. The patient also admits to trying to keep his blood sugars below 140 at all times and has had the problem of hypoglycemia in our clinic a number of times over the past year. 06/12/17. Seen by Dr. Howe. The patient does not report significant drainage associated with the chronic bilateral plantar MTPJ diabetic ulcers since his last visit. 06/05/17. Seen by Dr. Howe. The patient does not report significant drainage associated with the chronic bilateral plantar MTPJ diabetic ulcers since his last visit. He continues on Augmentin based on the recent wound culture and does not report adverse side effects. He also was seen by Dr. Garcia and his new diabetic shoes have been ordered noting his significant history of right lateral foot amputation and multiple toe amputations plus bilateral Charcot deformities. 05/29/17. Seen by Dr. Howe. The patient's wound culture from 2 days ago of a new right foot diabetic ulcer grew Streptococcus as well as Staph. He does not report increased drainage from this ulcer nor the chronic left foot diabetic ulcer. He is also not yet been seen by podiatry although we did send the referral over a couple weeks ago. His blood sugars continue to be well controlled and of note he has had extensive amputations of both the lateral aspect of the right foot as well as toes on both feet which has contributed significantly to recurrent callus and diabetic ulcer formation. 05/27/17. Seen by Mitch Cota PA-C. The patient reports a new ulcer to his right great toe that he believes has been continuously present for about a week. He denies any trauma to the area though states he may have been walking more lately. He is insensate and notes no pain, though he has seen purulent drainage in the area and notes a foul odor. 05/12/17. Seen by Dr. Howe. The patient does not report significant drainage associated with the chronic left plantar foot diabetic ulcer and he notes that heavy callus again has formed on the right plantar foot surface at the site of his recently healed diabetic ulcer. He has severe bilateral Charcot deformities along with multiple toe amputations that are contributing significantly to health information and the refractory and recurrent nature of his diabetic foot ulcers. He's also asked for us to address his toe nails today as it's been weeks since they've been trimmed. 05/05/17. Seen by Dr. Howe. The patient presents today with low blood sugars in the 40's and states he is feeling unwell in the waiting room. Upon my review he is lucid and eating and his blood sugars have increased into the 50s. He does not report any new problems regarding his chronic left foot diabetic ulcer and states that he has not discussed his hypoglycemia with his primary care provider yet despite having a number of episodes throughout the month. 04/28/17. Seen by Dr. Howe. The patient reports recurrence of his left plantar foot diabetic ulcer over the past week along with some new drainage that's quite malodorous. He does not report pain in the foot nor fevers nor any acute issues regarding his right lateral foot diabetic ulcer. He states his blood sugars continue to be well controlled with most below 120. 04/21/17. Seen by Dr. Howe. The patient does not report pain or drainage associated with the chronic right foot diabetic ulcers since his last visit. 04/14/17. Seen by Dr. Howe. The patient does not report pain or drainage associated with the chronic right foot diabetic ulcers since his last visit. His work diabetic shoe as recommended noting he is a partial right foot and right second toe amputations along with a significant Charcot deformity. 04/07/17. Seen by Dr. Howe. The patient does not report significant drainage or pain associated with the chronic right lower leg diabetic ulcers since his last visit. He snoring softly and she was recommended and reports his blood sugars have been well controlled. Of note, his significant deformity of the right foot including partial lateral amputation as well as second toe amputation and a significant Charcot deformity. 04/02/17. Seen by Dr. Howe. The patient reports that a coin accidentally fell into his right lower leg total contact cast a couple days ago. The staff found a johnson upon removing the cast as well as a new ulcer over the lateral aspect of the right foot. The patient does not report pain at the site nor does staff report significant drainage associated with new ulcer nor the chronic right plantar foot diabetic ulcer. The patient's blood sugars continue to be well controlled and he has no other acute complaints at this time. 03/28/17. Seen by Mitch Cota PA-C. The patient's recent wound culture demonstrated no growth. He has not noted increased drainage since his last evaluation. 03/23/17. Seen by Mitch Cota PA-C. The patient reports no increase in right foot ulcer drainage since his last evaluation. In addition his wound culture demonstrated no growth. 03/17/17. Seen by Dr. Howe. The patient does not report increased drainage associated with the chronic right first MTPJ diabetic ulcer.He completed his course of antibiotics that was treating the recent positive wound culture and does not report adverse side effects. He continues offload with a surgical shoe as well. 03/09/17. Seen by Dr. Howe. The patient does not report pain or significant drainage associated with the recurrent right foot diabetic ulcer. His culture of the ulcer was positive for a staph organism and Acinetobacter however he's not yet been started on antibiotics. He states his blood sugars continue to be well-controlled with most below 150. 03/02/17. Seen by Mitch Cota PA-C. The patient reports no improvement in drainage from his diabetic ulcer of the right foot. He has noted odor at times coming from the ulcer. 02/23/17. Seen by Mitch Cota PA-C. The patient reports no increase in drainage from his diabetic ulcer of the right foot. 02/09/17. Seen by Mitch Cota PA-C. The patient reports that he has just begun taking Bactrim for his infection of his right foot diabetic ulcer. He reports continued purulent drainage and odor. 02/02/17. Seen by Mitch Cota PA-C. The patient returns to our clinic with a new ulcer of his right first metatarsal head. He reportedly smacked his foot hard on the floor, creating this ulcer, in an attempt to stop an episode of neuropathy. 11/10/16. Seen by Mitch Cota PA-C. The patient returns for evaluation of his recently healed ulcer, fearing that it is open again. He has not seen liquid drainage but fears it is draining under the callous. 11/04/16. Seen by Mitch Cota PA-C. The patient does not report any difficulties with his TCC this week. 10/24/16. Seen by Dr. Howe. The patient does not report any problems regarding his TCC and staff do not repot significant drainage on the dressing overlying the left plantar foot diabetic ulcer. His blood sugars remain well controlled with most below 150. 10/20/16 Seen by Mitch Cota PA-C. The patient is here for placement of a TCC to offload his left plantar foot diabetic ulcer. He notes that the drainage from his ulcer has soaked through the TCC under-layers and almost soaked through the cast. 10/15/16. Seen by Dr. Howe. The patient tolerated his TCC with minimal discomfort noting mild pain in the left 1st toe. The staff do not report significant drainage associated with the chronic left plantar foot diabetic ulcer and he states his blood sugars are mostly below 150. He's now been placed in a TCC to optimize offloading needed to accommodate for the left foot Charcot deformity that's lead to recurrent heavy callus formation in the periulcer area. 10/13/16 Seen by Mitch Cota PA-C. The patient reports no increase in drainage from his left foot diabetic non-pressure ulcer since his last evaluation. 09/29/15 Seen by Mitch Cota PA-C. The patient reports no increase in drainage from his chronic left foot diabetic ulcer. He does voice frustration that his wound is taking so long to heal. 09/19/16. Seen by Dr. Howe. The patient does not report increased drainage or other acute issues regarding his chronic left plantar foot diabetic ulcer since his last visit. 09/12/16. Seen by Dr. Howe. The patient does not report significant drainage associated with the chronic left plantar foot diabetic ulcer over the past week. He's applying Kerasal to the periwound callus as recommended and has limited his walking considerably, in addition to wearing an offloading shoe, to minimize callus formation. His blood sugars also remain well controlled with most below 150 and he continues on Bactrim for an infection of the ulcer without reporting adverse side effects. 09/05/16. Seen by Dr. Howe. The patient returns to clinic with recurrent of his left plantar foot diabetic ulcer that he states reopened about 2 weeks ago. He was placed on Keflex by his PCP yesterday due to the appearance of the ulcer and significant drainage. He states his blood sugars are well controlled and he limits his walking to help facilitate offloading. 07/28/16. Seen by Dr. Howe. The patient does not report significant drainage associated with the chronic left plantar foot diabetic ulcer over the past week. He's applying Kerasal to the periwound callus as recommended and states his blood sugars are consistently below 150. He does report ongoing nausea for the past few weeks and states he's on 3 nausea medications but does not know what's causing it. He's working with his PCP on this problem. 07/15/16 Seen by Mitch Cota PA-C. The patient reports no fever chills or pain from his left foot diabetic ulcer since his last evaluation. 07/10/16. Seen by Dr. Howe. The patient does not report significant drainage associated with the chronic left plantar foot diabetic ulcer over the past week. He's applying Kerasal to the periwound callus as recommended and has limited his walking considerably, in addition to wearing an offloading shoe, to minimize callus formation. 07/08/16 Seen by Mitch Cota PA-C. The patient reports no increase in pain or drainage from his ulcer, though he does report nausea and vomiting. After further review, it appears that his PPI prescription has run out and he stopped it abruptly. He has not had associated fever, chills or lower GI symptoms. His blood sugars have reportedly been above 150 this week. The patient reports that he still has problems with callous formation on his feet and will be seeing podiatry. 07/04/16. Seen by Dr. Howe. The patient does not report significant drainage associated with the chronic left plantar foot diabetic ulcer since his last visit. He does report significant nausea and vomiting over the past week however but does not report fever, cough, or other specific symptoms and feels the nausea has started to improve as of yesterday. He states his blood sugars have been well controlled with most below 150 and he's on Augmentin for the recent MSSA and Strep positive wound culture. He's also been applying Kerasal to the periwound callus as recommended and has been limited in his walking the past week due to illness. 06/23/16 Seeb by Mitch Cota PA-C. The patient reports that he believes he has an infection in his foot because his dog has been sniffing and licking his open ulcer. He believes his dog has a nose for infection. He reports a continuous, strong, foul odor from his left plantar foot ulcer for the past 3 days with an associated increase in drainage. In addition he has not been offloading his foot as instructed and is going barefoot at home. 06/16/16 Seen by Mitch Cota PA-C. The patient reports that he is walking barefoot in the house and only wears shoes outside the house. His left foot diabetic ulcer drainage has been stable. 06/02/16 Seen by Mitch Cota PA-C. The patient reports that he is due to have a new orthotic fitted for his deformed left foot to further offload his chronic left foot ulcer. He reports stable drainage from this ulcer. 05/27/16 Seen by Mitch Cota PA-C. The patient reports that he now has a new wound near his chronic left plantar foot diabetic ulcer. The new wound began spontaneously and was noted today. His chronic ulcer has had stable drainage. 05/19/16. Seen by Dr. Howe. The patient does not report significant drainage associated with the chronic left plant foot diabetic ulcer over the past week and he states his blood sugars are well controlled with most below 150. 05/12/16. Seen by Dr. Howe. The patient reports some new pain along the right foot surgical scar but no swelling or drainage from the site. He does not recall injuring the foot and feels he may have been more active over the past week. He does not report significant or drainage associated with the left plantar foot diabetic ulcer and states he's not been able to check his blood sugars due to the fact he ran out of glucometer strips this past week. His blood sugar today is 280. 04/11/16. Seen by Dr. Howe. The patient does not report pain or drainage associated with the chronic right lateral foot diabetic ulcer of the past week. He states his blood sugars are consistently below 150 and he is wearing his offloading shoe is recommended. 04/04/16. Seen by Dr. Howe. 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 He states his blood sugars are mostly below 150 and he's offloading using a surgical offloading shoe. He's now off of antibiotics and is here today with his granddaughter who's assisting with his care. 03/31/16 Seen by Mitch Cota PA-C. The patient has returned from [facility] where he had a 4th ray amputation performed to his right foot. He reports that he was supposed to have follow up appointments with surgery, cardiology and wound care but has not attended any of these appointments due to transportation difficulties. He is unsure of when his sutures are supposed to be removed. 02/28/16 Seen by Mitch Cota PA-C. The patient was seen at [place] [facility] and evaluated by Dr. Monae on an urgent basis as arranged by Dr. Howe at his last visit. The patient reports that Dr. Monae wanted to urgently take him to surgery but the patient would prefer to have Dr. Garcia do it and refused admission to the hospital. 02/21/[address] Howe. The patient does not report pain or significant drainage associated with the Alonzo grade 3 right lateral foot diabetic ulcer and he saw Dr. Garcia , podiatry, this morning who reportedly states she's not able to perform any additional debridement until his right leg vascular status is further evaluated. He had an arterial Doppler scheduled yesterday however both the patient and his son state they were unaware of the appointment. He started taking his Augmentin, which is treating the MSSA and Strep viridans culture from 02/15/16, following the last visit as recommended, states his blood sugars have been consistently below 150 over the past week, and he's offloading by wearing a surgical shoe and significantly limiting his walking. Of note, he's still on supplemental oxygen following his recent hospital discharge and gets short of breath on minimal exertion. Please see my note below from his last visit regarding details of the admission and amputation. 02/15/[address] Howe. The patient does not report pain associated with the right lateral foot diabetic ulcer. He was discharged 4 days ago following a partial ray amputation of the 5th toe and MT due a progressive foot infection that he states occurred over about 2 days prior to being admitted to the hospital. His wound culture on arrival to the ER was polymicrobial and reported on Group C Strep. He was treated with IV Zosyn during the admission and prescribed Augmentin on discharge however he's not yet picked up the prescription. His blood sugars have been relatively well controlled with most below 150 since discharge. Of note, he also had a non-ST elevation OH post-operatively, acute on chronic renal failure with a Cr of 1.8 on discharge, and acute respiratory failure and continues on supplemental oxygen. 12/27/[address] Howe. The patient does not report drainage or pain associated with the chronic right plantar foot diabetic ulcer over the past week. He's not been applying Kerasal to the associated callus as recommended however he does not have diabetic shoes and a new AFO that he's been wearing. His blood sugars also remain relatively well controlled below 150 consistently. 12/06/[address] Howe. The patient does not report pain or significant drainage from the chronic right plantar foot diabetic ulcer. His blood sugars remain well controlled around 120 and he's now wearing his new diabetic shoes and offloading by limiting his walking significantly. He's also applying Kerasal daily to the right foot calluses as recommended. 11/29/[address] Howe. The patient does not report significant drainage from the chronic right plantar foot diabetic ulcer and he states his blood sugars remain well controlled below 150. He's also wearing his diabetic shoes now and limiting his walking to facilitate offloading. 11/23/[address] Howe. The patient reports moderate drainage but no pain associated with the chronic right plantar foot diabetic ulcer. He continues on doxycycline for a polymicrobial positive wound culture and he states his blood sugars remain well controlled with most below 120. 11/15/[address] Howe. The patient's wound culture from the last visit grew Enterobacter, Staph, and group G Strep however he's not yet picked up his prescription for doxycycline. He has at least moderate serosanquinous drainage on the dressing and states he's been a bit more active this past week as his son has been sick and unable to do the shopping. His blood sugar was also elevated yesterday near 200 but has been relatively well controlled prior to that. 11/08/15 Seen by Mitch Cota PA-C. The patient reports that his son is sick and he has been up on his feet taking care of him and has been unable to stay off of his feet. He has noted more drainage from his right plantar foot diabetic ulcer in the past few days. He also reports that his current shoes with inserts are making a large callous on his right heel and he doesn't feel that they offload his ulcer, so he has been trying to walk on the lateral edge of his right foot to offload his ulcer, and now is having lateral right foot pain as a result. 11/01/[address] Howe. The patient admits to being more active over the past two weeks but states there's only been very minimal drainage from the right plantar foot diabetic ulcer. His blood sugars also remain well controlled below 150 consistently. 10/18/[address] Howe. The patient does not report drainage from the right foot plantar diabetic ulcer however he states he has been more active the past week in terms of walking. His blood sugars also remain well controlled below 150. 10/11/[address] Howe. The patient does not report pain or drainage associated with the right plantar foot nor heel diabetic ulcers. 10/04/[address] Howe. The patient does not report drainage from the right plantar foot diabetic ulcer and he continues to use Kerasal daily for the significant right heel callus. His blood sugars are also well controlled below 120 consistently. 09/27/[address] Howe. The patient reports only minimal drainage from the right plantar foot diabetic ulcer and states his blood sugars continue to improve with most between 120 and 180. He's also applying Kerasal to the bilateral foot calluses daily as we've requested. 09/19/[address] Howe. The patient reports significantly decreased drainage from the right plantar foot diabetic ulcer and he'll complete his course of levofloxacin today that treating the polymicrobial wound culture from 09/04/15. His blood sugars are also much better controlled over the past week with most around 150 and very few over 200. 09/12/[address] Howe. The patient continues to report significant drainage from the right plantar diabetic foot ulcer and his wound culture from 09/04/15 grew Strep , Providencia, and Neisseria species. He's now on levofloxacin and does not report adverse effects. He's also no longer experiencing severe hypoglycemic episodes and is working closely with is PCP on adjusting his insulin regimen. His blood sugars due tend to remain over 200 however. 09/07/[address] Howe. The patient continues to report blood sugars as low as the 40's since our visit last week. Regarding his foot ulcers, he reports continued foul smelling drainage from the right foot diabetic ulcer but none from right heel or left foot diabetic ulcer. His blood sugars also may be as high as 300 and he states he's compliant with his diabetes medication regimen and will require as much as 30-40 units of short acting insulin on occasion. He does not report pain in the feet nor fevers or other systemic symptoms. 08/31/[address] Howe. The patient is new to our clinic. On arrival he was not feeling well and was tremulous. The MA checked his blood sugar and is registered 34 which is the lowest the glucometer would read. I spoke with him and he reported feeling very unwell at which time he was urgently transferred to the ER. Of note, he was in the clinic to review bilateral diabetic foot ulcers. He'd also recently lost a son and has been very upset the past week according to staff. Past Medical History This information was obtained from the patient Patient has a medical history of: Chronic Obstructive Pulmonary Disease (COPD) Type II Diabetes (A1c 7.4 on 11/12/2015) PAD Peripheral neuropathy Hypoglycemia CVA Diabetic foot ulcer (Right plantar 1st MTPJ, Alonzo grade II) Coronary Artery Disease (CAD) (s/p OH during admission on 02/04/2016) Lumbar strain CHF Hyperlipidemia CKD stage 3 Gout Diabetic foot ulcer - 02/04/2016 (right lateral foot s/p partial ray amputation; Alonzo grade 3; MSSA and Strep viridans cultured) Complaints and Symptoms This information was obtained from the patient Patient complains of: General Notes: I have reviewed and concur with the Review of Systems and Past Family Social History documents completed by the clinician, I have reviewed and concur with the Wound Assessment document completed by the clinician Cardiovascular (Central): Dyspnea on Exertion Ear/Nose/Mouth/Throat: Hearing Loss / Aid Integumentary (Hair/Skin/Nails): Open Sore Musculoskeletal: Assistive Devices, Deformities Neurological: Loss of Protective Sensation Prior Wound History: Drainage, Erythema, Malodor Patient denies complaints or symptoms related to: Cardiovascular (Central/Peripheral): Intermittent Claudication, Lower extremity (leg) resting pain Constitutional Symptoms (General Health): Chills, Fever Gastrointestinal (GI): Nausea / Vomiting, Stomach/abdominal pain Hematologic/Lymphatic: Bleeding / Clotting Disorders, Bleeding Tendency Musculoskeletal: Muscle Weakness Prior Wound History: Bleeding, Pain Psychiatric: Anxiety, Memory Loss Respiratory: Oxygen Use, Shortness of Breath Additional Information Does patient have a history of Cancer? Yes? Complete all questions.: Yes Location of Cancer: Skin cancer Patient underwent Radiation Treatment? If yes, answer question below.: No OBJECTIVE Constitutional BP elevated; Afebrile; Alert and in no distress. Well developed. Alert. Clean appearing.. Height/Length: 72 in (182.88 cm), Weight: 216.1 lbs (98.23 kgs), BMI: 29.3, Temperature: 97.3 ?F (36.28 ?C), Pulse: 54 bpm, Respiratory Rate: 18 breaths/min, Blood Pressure: 159/75 mmHg, Capillary Blood Glucose: 59 mg/dl, Pulse Oximetry: 100 %. Vital Signs Notes: Per Patient. Ears, Nose, Mouth, and Throat: Mild hearing deficit. Respiratory: No respiratory distress. Even respirations and without use of accessory muscles.. Musculoskeletal: Right lateral foot partial amputation. Integumentary (Hair, Skin) Refer to appropriate clinician wound documentation for this visit; right and left foot ulcers extend to subcut with bases partially covered with pink granulation, remainder fibrin and slough. Wound #11 Left Metatarsal head first is a chronic Alonzo Grade 2 Diabetic Ulcer and has received a status of Not Healed. Subsequent wound encounter measurements are 2cm length x 1.2cm width x 0.3cm depth, with an area of 2.4 sq cm and a volume of 0.72 cubic cm. No tunneling has been noted. No sinus tract has been noted. No undermining has been noted. There is a large amount of sero-sanguineous drainage noted which has no odor. The patient reports no wound pain due to the wound being insensate. The wound margin is callus. Wound bed has No epithelialization, No eschar, No slough, Yes bright red, spongy granulation. The periwound skin color is normal. The periwound skin exhibited: Callus, Moist , Maceration. The periwound skin did not exhibit: Brawny Induration, Edema, Excoriation, Induration, Crepitus, Fluctuance, Friable, Rash, Dry/Scaly. The temperature of the periwound skin is WNL. Periwound skin does not exhibit signs or symptoms of infection. Local Pulse is Palpable. Wound #12 Right, Plantar Metatarsal head first is a Alonzo Grade 2 Diabetic Ulcer and has received a status of Not Healed. Subsequent wound encounter measurements are 2.1cm length x 1.1cm width x 0.2cm depth, with an area of 2.31 sq cm and a volume of 0.462 cubic cm. No tunneling has been noted. No sinus tract has been noted. No undermining has been noted. There is a large amount of sero-sanguineous drainage noted which has no odor. The patient reports no wound pain due to the wound being insensate. The wound margin is callus. Wound bed has No epithelialization, No eschar, No slough, Yes pink, spongy granulation. The periwound skin exhibited: Callus, Moist, Maceration, Erythema. The periwound skin did not exhibit: Brawny Induration, Edema, Excoriation, Induration, Crepitus, Fluctuance , Friable, Rash, Atrophie Yola, Cyanosis, Ecchymosis, Hemosiderosis, Pallor, Rubor. The temperature of the periwound skin is WNL. Periwound skin does not exhibit signs or symptoms of infection. Local Pulse is Normal. General Notes: Tolerated Cast. No pressure injuries. Neurological: Cranial nerves grossly intact with symmetric function normal by informal observation.. 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 A skin/ subcutaneous tissue level surgical debridement with a total area debrided of 2.4 sq cm was performed by Nando Howe MD. Subcutaneous was removed along with devitalized tissue: callus and slough. The following instrument(s) were used: curette. Pain control was achieved using 4% Lido. A time out was conducted prior to the start of the procedure. A minimal amount of bleeding was controlled with pressure. The procedure was tolerated well with a pain level of 0 throughout and a pain level of 0 following the procedure. Post Debridement Measurements: 2cm length x 1.2cm width x 0.3cm depth; with an area of 2.4 sq cm and a volume of 0.72 cubic cm; Wound #12 Wound #12 (Diabetic Ulcer) is located on the right, plantar metatarsal head first. A skin/subcutaneous tissue level surgical debridement with a total area debrided of 2.31 sq cm was performed by Nando Howe MD. to remove devitalized tissue: callus and slough. The following instrument(s) were used: curette. Pain control was achieved using 4% Lido. A time out was conducted prior to the start of the procedure. A moderate amount of bleeding was controlled with silver nitrate. The procedure was tolerated well with a pain level of 0 throughout and a pain level of 0 following the procedure. Post Debridement Measurements: 2.1cm length x 1.1cm width x 0.2cm depth; with an area of 2.31 sq cm and a volume of 0.462 cubic cm; Additional Information Muscle fascia or bone removed and sent to pathology?: No Muscle fascia or bone removed and sent to pathology?: No PLAN Wound Orders: Wound #11 Left Metatarsal head first Anesthetic Topical Xylocaine to wound bed. - In clinic only. Cleanser Cleanse Wound: - Normal saline and gauze, may use distilled water at home. May Shower. - Keep covered in shower with cast protector or plastic bag. Topical Treatments Antibiotic/Antimicrobial Ointment/Cream. - Gentamicin. Dressings Primary dressing: - Skin Prep to wound bed, Aquacel to wound bed.[place] donut pad surrounding wound. May leave pad in place during dressing changes. Cover and secure with: - Foam and hypafix tape. Change Dressing: - Daily. Wound #12 Right, Plantar Metatarsal head first Anesthetic Topical Xylocaine to wound bed. - In clinic only. Cleanser Cleanse Wound: - Normal saline and gauze, may use distilled water at home. May Shower. - Keep covered in shower with cast protector or plastic bag. Topical Treatments Antibiotic/Antimicrobial Ointment/Cream. - Gentamicin. Dressings Primary dressing: - Skin prep apollo-wound, Aquacel to wound bed.[place] donut pad surrounding wound. May leave pad in place during dressing changes. Cover and secure with: - Foam and hypafix tape. Change Dressing: - Daily. Additional Orders: Off-Loading Keep weight off: - Both feet as much as possible. Total Contact Cast - To Right leg Follow-Up Appointments Return Appointment: - - for TCC. One hour and 15 minutes appointment. Other information: If you develop fever, chills, increased pain, drainage, redness or swelling please call our office. If after hours, respond to the ER. Should you experience any significant changes in your wound(s) or have any questions regarding your home care instructions please contact the wound center @ [phone]. If after hours, contact your primary care physician or go to the hospital emergency room. Scribing Attestation I attest, as the nurse, that I scribed these orders for the physician. I've reviewed the clinician's documentation and agree with the evaluation and plan as written. In addition the patient's ulcers demonstrate evidence of non-viable devitalized tissue and they will continue to benefit from sharp debridement to help promote granulation and expedite healing. Also, I've placed another TCC today to continue optimal offloading of the right DFU. Electronic Signature(s) Signed By: Date: Nando Howe MD 05/07/2018 09:29:15 Entered By: Nando Howe on 05/06/2018 13:27:39
== END ==
PROVIDERS: Family Provider Physician Assistant Medical; PCP Physician Assistant Medical; Visit Provider Internal Medicine
DX: E11.621 Type 2 diabetes mellitus with foot ulcer (principal); L97.522 Non-pressure chronic ulcer of other part of left foot with fat layer exposed; L97.512 Non-pressure chronic ulcer of other part of right foot with fat layer exposed
CPT/HCPCS: 11042

== ENCOUNTER → 2018-05-13 14:09 | Outpatient (CLI) | payer MEDICARE, SELFPAY | PROVIDERS: Family Provider Physician Assistant Medical; PCP Physician Assistant Medical; Visit Provider Internal Medicine | DX: E11.621 Type 2 diabetes mellitus with foot ulcer (principal); L97.522 Non-pressure chronic ulcer of other part of left foot with fat layer exposed; L97.512 Non-pressure chronic ulcer of other part of right foot with fat layer exposed; M21.6X1 Other acquired deformities of right foot | CPT/HCPCS: 11042 ==

== ENCOUNTER → 2018-05-18 13:36 | Outpatient (CLI) | payer MEDICARE, SELFPAY ==
--- NOTE | 2018-05-18 | OV.WND_ITS ---
Progress Note Details Patient Name: Nick Drake Patient Number: [id number] PatientPatientDate: 05/18/2018 Clinician: Rina Bentley Clinician Cosigner: Mary Rosales Physician / Supervisor Brake Repair: Nando Howe SUBJECTIVE Chief Complaint This information was obtained from the patient Diabetic ulcers to right and left foot. Allergies Minipress (Severity: Severe, Reaction: violent behavior), Vicodin (Severity: Mild, Reaction: itching), nortriptyline (Severity: Moderate), Avandia (Severity: Moderate) HPI This information was obtained from the patient 05/18/18. Seen by Dr. Howe. The patient does not report increased drainage associated with the bilateral plantar 1st MTPJ diabetic ulcers since his last visit. He admits thought to not covering the ulcers while he showers despite our recommendation to wear a cast protector and prevent them from getting wet. 05/13/18. Seen by Dr. Howe. The patient does not report any complications regarding the right foot total contact cast that was placed 7 days ago and the staff do not report increased drainage or other acute issues regarding the bilateral plantar foot diabetic ulcers. There is a possible blister noted however over the posterior right heel. 05/06/18. Seen by Dr. Howe. The patient does not report any complications regarding the right foot total contact cast that was placed 2 days ago and the staff do not report increased drainage or other acute issues regarding the bilateral plantar foot diabetic ulcers. 05/03/18. Seen by Dr. Howe. The patient did not make is appointments last week due to a GI issue. He does not report increased drainage associated with the bilateral plantar 1st MTPJ diabetic ulcers since his last visit however and we're planning on placing a TCC to better offload the right foot ulcer today. Of note, he has a partial right lateral foot amputation that's contributing to heavy periulcer callus formation and the refractory nature of the ulcer. 04/23/18. Seen by Dr. Howe. The patient does not report increased drainage associated with the bilateral plantar 1st MTPJ diabetic ulcers since his last visit. He reports being sick over the past week with nausea and vomiting which has mostly resolved as of today. 04/20/18. Seen by Dr. Howe. The patient does not report increased drainage associated with the bilateral plantar 1st MTPJ diabetic ulcers since his last visit. Also, his total contact cast was ordered but is not available today. It's to be placed on the right lower leg to better facilitate offloading in light of his partial right lateral foot amputation that's contributing significantly to callus formation and the refractory nature of the right foot ulcer. He also missed his appointment with cardiology on 04/07 to discuss intervention for his bilateral lower leg PAD which is also complicating his wound healing. 04/13/18. Seen by Dr. Howe. The patient does not report increased drainage associated with the bilateral plantar 1st MTPJ diabetic ulcers since his last visit. He states he's wearing his right lower leg [place] boot as recommended which is offloading the ulcer and addressing the partial right foot amputation which contributes considerably to recurrent and heavy callus formation. 04/09/18. Seen by Dr. Howe. The patient does not report increased drainage associated with the bilateral plantar 1st MTPJ diabetic ulcers since his last visit. His blood sugar is 226 today and he admits to eating some candy yesterday. 04/06/18. Seen by Dr. Howe. The patient does not report increased drainage associated with the bilateral plantar 1st MTPJ diabetic ulcers since his last visit. His bilateral arterial Doppler performed in February showed possible clinically significant PAD with a high grade stenosis of the right SFA and possible left common femoral inflow obstruction and bilateral lower leg with monophasic flow noted. He does not report rest pain nor claudication however he' s very limited in his mobility due to the plantar foot diabetic ulcers. 04/02/18. Seen by Dr. Howe. The patient continues to wear his [place] boot to offload the right foot 1st MTPJ diabetic ulcer and address the significant deformity associated with the partial lateral foot amputation and he does not report increased drainage associated with this ulcer nor the left plantar foot diabetic ulcer since his last. His wound culture from the last visit grew Staph and group G Strep and he's not currently on antibiotics. 03/30/18. Seen by Dr. Howe. The patient missed his last two appointments and states over the 24 of March he was wearing socks on his deck and noticed bleeding from the bilateral diabetic foot ulcers. His blood sugars are over 400 today and he's run our of insulin and glucose strips. He does not report pain associated with the ulcers and notes he's not wearing his [place] boot on the right foot at all times as recommended. He has a right partial foot amputation and Charcot deformity of both feet. 03/22/18. Seen by Dr. Howe. The patient continues to wear his [place] boot to offload the right foot 1st MTPJ diabetic ulcer and address the significant deformity associated with the partial lateral foot amputation and he does not report increased drainage associated with this ulcer nor the left plantar foot diabetic ulcer since his last. 03/15/18. Seen by Mitch Cota PA-C. The patient reports that he is compliant with his [place] boot but notes increased bleeding and drainage seen in the boot. 03/11/18. Seen by Mitch Cota PA-C. The patient reports stable drainage from his diabetic foot ulcers. His blood sugars continue to be above 150 this week. 03/04/18. Seen by Dr. Howe. The patient continues to wear his [place] boot to offload the right foot 1st MTPJ diabetic ulcer and address the significant deformity associated with the partial lateral foot amputation and he does not report increased drainage associated with this ulcer nor the left plantar foot diabetic ulcer since his last. He recently completed a course of doxycycline to treat a group G Strep positive culture and is applying iodosorb to the ulcers to help manage the persistent drainage. 03/01/18. Seen by Dr. Howe. The patient continues to wear his [place] boot to offload the right foot 1st MTPJ diabetic ulcer and address the significant deformity associated with the partial lateral foot amputation. He does not report significant drainage associated with this ulcer nor the left plantar foot diabetic ulcer since his last. 02/25/18. Seen by Dr. Howe. The patient will complete his course of doxycycline today that's treating the Staph and group G Strep positive culture taken from the right foot diabetic ulcer. He does not report adverse side effects and nor significant drainage from the ulcer or the left plantar foot diabetic ulcer. 02/22/18. Seen by Dr. Howe. The patient is now on doxycycline for the Staph and group G Strep positive culture taken from the right foot diabetic ulcer last week. He notes some bloody drainage from this site on his dressing today but feels this ulcer and the left foot diabetic ulcer have improved over the past few week. He's offloading the right foot which has a partial lateral amputation using his [place] boot as recommended however he's not using a frame walker. He does not report adverse side effects of the antibiotics nor other acute issues today. 02/18/18. Seen by Dr. Howe. The staff report increased drainage associated with both plantar foot 1st MTPJ diabetic ulcers and the patient reports a malodor from the dressings over the past week. He does not report fevers, feeling unwell, or pain in the feet but states his blood sugars have been a bit elevated in the 180s. He's also wearing his [place] boot as recommended on the right foot but states he does not have enough room in his house to use a knee scooter and does not use his frame walker. 02/11/18. Seen by Dr. Howe. The patient continues to wear his [place] boot to offload the right foot 1st MTPJ diabetic ulcer and address the significant deformity associated with the partial lateral foot amputation. He does not report significant drainage associated with this ulcer nor the left plantar foot diabetic ulcer since his last visit however the nurse states the mole skin dressing was applied inappropriately over the left foot ulcer and was overlying the ulcer itself and soaked with drainage. 02/04/18. Seen by Dr. Howe. The patient continues to wear his [place] boot to offload the right foot 1st MTPJ diabetic ulcer and address the significant deformity associated with the partial lateral foot amputation. He does not report significant drainage associated with this ulcer nor the left plantar foot diabetic ulcer since his last visit. 01/28/2018. Seen by Dr. Howe. The patient is now wearing his [place] boot to offload the right foot 1st MTPJ diabetic ulcer and address the significant deformity associated with the partial lateral foot amputation. He does not report significant drainage associated with this ulcer nor the left plantar foot diabetic ulcer since his last visit. 01/26/18. Seen by Dr. Howe. The patient states he has been without his insulin for over a week which is likely the cause of his blood sugars being around 400 over the past few visits. He has also not contacted his orthotics provider regarding the offloading [place] CH[place] boot to wear on the right foot noting his significant deformity caused by the partial lateral foot amputation. He has not report increased drainage or other acute changes regarding his bilateral diabetic foot ulcers and will complete his course of doxycycline its treated the recent MSSA positive culture tomorrow. He also reports nausea and one episode of emesis earlier today but not other acute issues. 01/21/2018. Seen by Dr. Howe. The patient arrived today with his right foot dressing upside down. His blood sugars are also over 400. The patient does not report increased drainage associated with the right or left diabetic foot ulcers however states his neuropathic pain has been significant over the past 2 days. He also is going to picker / packer his [place] boot today to help facilitate offloading of the right foot diabetic ulcer noted in he also has a partial lateral amputation on his foot that is contributed significantly 2. Ulcer callus formation. He also continues on doxycycline for he recent MSSA positive wound culture. 01/18/2018. Seen by Dr. Howe. The patient's wound culture from the left foot diabetic ulcer grew MSSA resistant to gentamicin. He is not currently on oral antibiotics and does not report increased drainage from either left right foot diabetic ulcers and is still waiting for his [place] boot to be available to help facilitate better offloading of the right foot noting his partial lateral right foot amputation and severe Charcot deformity. 01/14/18. Seen by Dr. Howe. The patient continues to report moderate drainage from the right and left diabetic foot ulcers over the past few days and he's seen his cigarette catcher who's ordered a [place] boot for the right foot which should be available next week. He has severe bilateral Charcot deformities and partial right lateral foot amputation that contributes to the refractory nature of the ulcers and very heavy callus formation. 01/12/18. Seen by Dr. Howe. The patient reports moderate drainage from the right and left diabetic foot ulcers and he's seen his cigarette catcher who's ordered a [place] boot for the right foot. He has bilateral partial lateral foot amputations which have resulted in refractory calluses of the bilateral plantar MTPJ's and associated DFU's. His blood have been well controlled and his recent hypoglycemic episodes have resolved. 01/07/18. Seen by Dr. Howe. The patient missed his last 2 appointments due to a GI illness last week and she reports some pain in the lateral aspect of the right forefoot but no increased drainage, swelling, or other acute changes of the diabetic foot ulcer. He also does not report any acute issues regarding the left diabetic foot ulcer. Of note, he has significant deformities of both feet due to partial amputations which have each contributed significantly to severe callus formation and the refractory nature of the ulcers. 01/01/18. Seen by Dr. Howe. The patient continues on clindamycin for the chronic right diabetic foot ulcer infection and it is not reported adverse side effects. He also does not report significant drainage associated with either left or right diabetic foot ulcer since his last visit. 12/28/17. Seen by Dr. Howe. The patient does not report increased drainage associated with either right or left foot diabetic ulcers since his last visit. He continues on clindamycin without reporting adverse side effects to treat the chronic right ulcer infection and his blood sugars are well controlled. Of note, he has been attending clinic twice weekly to optimize management of his recurrent and severe apollo-ulcer calluses that are in part due to his severe Charcot deformities and bilateral partial foot amputations. 12/21/17. Seen by Dr. Howe. The patient reports some drainage associated with the right foot diabetic ulcer since his last visit but none associated with the left foot diabetic ulcer. He completed his course of doxycycline today is treating the recent MSSA positive wound culture and is reported adverse side effects, fevers, feeling unwell. He states his blood sugars continue to be well controlled below 180. 12/15/17. Cinthia Howe. The patient's wound culture from the left plantar foot diabetic ulcer his last visit grew MSSA resistant to gentamicin. He does not report increased drainage or pain from either diabetic foot ulcers since his last visit. 12/10/17. Seen by REN Olea. The patient does not report increased drainage from his bilateral diabetic foot ulcers but does report continued odor. Notes a large amount of callous growth. Wound culture from last week showed MSSA and Diphtheroids. He has been applying topical gentamicin. 12/03/17. Seen by Mitch Cota PA-C. The patient reports increased drainage and odor from his bilateral diabetic foot ulcers. He continues to have elevated blood sugars. 11/26/17. Seen by Mitch Cota PA-C. The patient reports that he has decreased his usage of marijuana which he uses for recreation and to treat his neuropathy. He has not had a ground level fall since decreasing his usage. His blood sugars remain >150 and his ulcers' drainage is stable. 11/20/17. Seen by Mitch Cota PA-C. The patient reports no increase in his ulcer drainage from his bilateral lower extremity diabetic ulcers. He has not scheduled an appointment to see his PCP to address his consistently high blood sugars. 11/13/17. Seen by Mitch Cota PA-C. The patient reports stable drainage from his diabetic foot ulcers and continued difficulty keeping his blood sugars below 150. He also reports not wearing his diabetic shoes when at home. 11/09/17. Seen by Mitch Cota PA-C. The patient reports high blood sugars again this week. He does not report increased drainage though he notes callous formation continues to happen quickly between visits. 11/06/17. Seen by Dr. Howe. The patient does not report increased drainage associated with the chronic bilateral diabetic foot ulcers since the last visit. 11/02/17. Seen by Mitch Cota PA-C. The patient reports no increased drainage from his bilateral diabetic foot ulcers. He is not surprised that his blood sugar is low this morning as he did not eat dinner yesterday or breakfast today, citing mild GI discomfort. 10/30/17. Seen by Dr. Howe. The patient missed a few appointments recently due to our facility power outage however he does not report increased drainage or other acute issues regarding his bilateral first MTPJ plantar foot diabetic ulcers. 10/23/17. Seen by Mitch Cota PA-C. The patient reports that he did not take his insulin, or eat this morning. Drainage from his diabetic foot ulcers has been stable. 10/15/17. Seen by Mitch Cota PA-C. The patient reports high blood sugars this week and stable drainage from his foot ulcers. 10/13/17. Seen by Dr. Howe. The patient does not report increased drainage associated with the bilateral plantar foot diabetic ulcers since his last visit. 10/01/17. Seen by Dr. Howe. The patient does not report increased drainage associated with either left or right plantar foot diabetic ulcers since his last visit. 10/01/17. Seen by Dr. Howe. The patient does not report increased drainage associated with either left or right plantar foot diabetic ulcers since his last visit. 09/28/17. Seen by Dr. Howe. The patient does not report increased drainage associated with either left or right plantar foot diabetic ulcers since his last visit. He has been offloading as recommended as well. 09/24/17. Seen by Dr. Howe. The patient reports some increased drainage associated with the right chronic diabetic foot ulcer but none with the left chronic diabetic foot ulcer since his last visit. His blood sugars have been well controlled and he does not report pain in either feet or fevers or feeling unwell. He had been seen twice weekly due to the recent deterioration of the right foot ulcer and need for frequent debridement of the periulcer callus. 09/16/17. Seen by Dr. Howe. The patient does not report significant drainage associated with the bilateral plantar foot diabetic ulcers since last visit and his blood sugars are well controlled over the past week. 09/11/17. Seen by Dr. Howe. The patient states that the right foot diabetic ulcer bled significantly earlier this week when he got out of the shower. He had his INR checked yesterday and it was 3.5. He does not report increased drainage otherwise from either the left or right foot diabetic ulcers since his last visit. He's been seen as twice weekly for the past 2 weeks due to the very heavy accumulation of callus associated with the right foot ulcer. 09/08/17. Seen by Dr. Howe. The patient does not report increased drainage associated with bilateral foot diabetic ulcers since his last visit. 09/04/17. Seen by Dr. Hwoe. The patient does not report significant drainage associated with the bilateral plantar foot diabetic ulcers since last visit and his blood sugars are well controlled over the past week. 08/31/17. Seen by Dr. Howe. The patient does not report increased drainage associated with the bilateral plantar foot diabetic ulcers since his last visit and he continues on doxycycline for the positive right foot ulcer wound culture. His blood sugars have been well- controlled for the past week and he has had no further episodes of hypoglycemia. 08/26/17. Seen by Dr. Howe. The patient is now on doxycycline resistant MSSA positive wound culture taken from his right diabetic foot ulcer and does not report other side effects. He has picked up his new diabetic shoes and is wearing them as recommended. His blood sugar today is 58 in clinic and he has recently had his short-acting insulin increased by his primary care provider due to frequent episodes of hyperglycemia. He is scheduled to see his PCP again tomorrow to discuss the changes. 08/18/17. Seen by Mitch Cota PA-C. The patient reports a foul odor from his bilateral foot ulcers. He reports that he is feeling much better after an ER trip for hypoxia and his recent O2 saturation readings have been 100%. 08/06/17. Seen by Dr. Howe. The patient reports feeling unwell along with progressive shortness of breath while at rest over the past week. He says he had a low- grade fever at home today and staff report is O2 sats in low 90s upon arrival. He has a history of COPD also with possible admission for pneumonia within the past year. He is here for review of chronic diabetic foot ulcers that have been relatively stable for the past few weeks. 07/28/17. Seen by Mitch Cota PA-C. The patient reports increased drainage and bleeding from his diabetic foot ulcers. 07/20/17. Seen by Mitch Cota PA-C. The patient reports no increase in ulcer drainage since his last evaluation. 07/16/17. Seen by Mitch Cota PA-C. The patient has recently been in hospital where he had a NON-STEMI. He reports a reduction in drainage and wound odor after starting Augmentin. 07/01/17. Seen by Dr. Howe. The patient does not report significant drainage associated with the chronic bilateral plantar foot diabetic ulcers since his last visit. He will be picking up his new diabetic shoes today noting his partial right lateral foot amputation and multiple bilateral toe amputations plus Charcot deformity of both feet are contributing significantly to the recurrent heavy callus formation in the apollo-ulcer areas. He also states that he has not been covering his feet when he is in the shower despite our recommendation to do so. 06/19/17. Seen by Dr. Howe. The patient does not report significant drainage associated with the chronic bilateral plantar MTPJ diabetic ulcers since his last visit. Of note , the patient's blood sugar is 42 in clinic and was 35 earlier this morning. He's mildly symptomatic and is with his son who states the patient's food intake has been a bit less than usual due to limited funds at the end of the month. The patient also admits to trying to keep his blood sugars below 140 at all times and has had the problem of hypoglycemia in our clinic a number of times over the past year. 06/12/17. Seen by Dr. Howe. The patient does not report significant drainage associated with the chronic bilateral plantar MTPJ diabetic ulcers since his last visit. 06/05/17. Seen by Dr. Howe. The patient does not report significant drainage associated with the chronic bilateral plantar MTPJ diabetic ulcers since his last visit. He continues on Augmentin based on the recent wound culture and does not report adverse side effects. He also was seen by Dr. Garcia and his new diabetic shoes have been ordered noting his significant history of right lateral foot amputation and multiple toe amputations plus bilateral Charcot deformities. 05/29/17. Seen by Dr. Howe. The patient's wound culture from 2 days ago of a new right foot diabetic ulcer grew Streptococcus as well as Staph. He does not report increased drainage from this ulcer nor the chronic left foot diabetic ulcer. He is also not yet been seen by podiatry although we did send the referral over a couple weeks ago. His blood sugars continue to be well controlled and of note he has had extensive amputations of both the lateral aspect of the right foot as well as toes on both feet which has contributed significantly to recurrent callus and diabetic ulcer formation. 05/27/17. Seen by Mitch Cota PA-C. The patient reports a new ulcer to his right great toe that he believes has been continuously present for about a week. He denies any trauma to the area though states he may have been walking more lately. He is insensate and notes no pain, though he has seen purulent drainage in the area and notes a foul odor. 05/12/17. Seen by Dr. Howe. The patient does not report significant drainage associated with the chronic left plantar foot diabetic ulcer and he notes that heavy callus again has formed on the right plantar foot surface at the site of his recently healed diabetic ulcer. He has severe bilateral Charcot deformities along with multiple toe amputations that are contributing significantly to health information and the refractory and recurrent nature of his diabetic foot ulcers. He's also asked for us to address his toe nails today as it's been weeks since they've been trimmed. 05/05/17. Seen by Dr. Howe. The patient presents today with low blood sugars in the 40's and states he is feeling unwell in the waiting room. Upon my review he is lucid and eating and his blood sugars have increased into the 50s. He does not report any new problems regarding his chronic left foot diabetic ulcer and states that he has not discussed his hypoglycemia with his primary care provider yet despite having a number of episodes throughout the month. 04/28/17. Seen by Dr. Hwoe. The patient reports recurrence of his left plantar foot diabetic ulcer over the past week along with some new drainage that's quite malodorous. He does not report pain in the foot nor fevers nor any acute issues regarding his right lateral foot diabetic ulcer. He states his blood sugars continue to be well controlled with most below 120. 04/21/17. Seen by Dr. Howe. The patient does not report pain or drainage associated with the chronic right foot diabetic ulcers since his last visit. 04/14/17. Seen by Dr. Howe. The patient does not report pain or drainage associated with the chronic right foot diabetic ulcers since his last visit. His work diabetic shoe as recommended noting he is a partial right foot and right second toe amputations along with a significant Charcot deformity. 04/07/17. Seen by Dr. Howe. The patient does not report significant drainage or pain associated with the chronic right lower leg diabetic ulcers since his last visit. He snoring softly and she was recommended and reports his blood sugars have been well controlled. Of note, his significant deformity of the right foot including partial lateral amputation as well as second toe amputation and a significant Charcot deformity. 04/02/17. Seen by Dr. Howe. The patient reports that a coin accidentally fell into his right lower leg total contact cast a couple days ago. The staff found a johnson upon removing the cast as well as a new ulcer over the lateral aspect of the right foot. The patient does not report pain at the site nor does staff report significant drainage associated with new ulcer nor the chronic right plantar foot diabetic ulcer. The patient's blood sugars continue to be well controlled and he has no other acute complaints at this time. 03/28/17. Seen by Mitch Cota PA-C. The patient's recent wound culture demonstrated no growth. He has not noted increased drainage since his last evaluation. 03/23/17. Seen by Mitch Cota PA-C. The patient reports no increase in right foot ulcer drainage since his last evaluation. In addition his wound culture demonstrated no growth. 03/17/17. Seen by Dr. Howe. The patient does not report increased drainage associated with the chronic right first MTPJ diabetic ulcer.He completed his course of antibiotics that was treating the recent positive wound culture and does not report adverse side effects. He continues offload with a surgical shoe as well. 03/09/17. Seen by Dr. Howe. The patient does not report pain or significant drainage associated with the recurrent right foot diabetic ulcer. His culture of the ulcer was positive for a staph organism and Acinetobacter however he's not yet been started on antibiotics. He states his blood sugars continue to be well-controlled with most below 150. 03/02/17. Seen by Mitch Cota PA-C. The patient reports no improvement in drainage from his diabetic ulcer of the right foot. He has noted odor at times coming from the ulcer. 02/23/17. Seen by Mithc Cota PA-C. The patient reports no increase in drainage from his diabetic ulcer of the right foot. 02/09/17. Seen by Mitch Cota PA-C. The patient reports that he has just begun taking Bactrim for his infection of his right foot diabetic ulcer. He reports continued purulent drainage and odor. 02/02/17. Seen by Mitch Cota PA-C. The patient returns to our clinic with a new ulcer of his right first metatarsal head. He reportedly smacked his foot hard on the floor, creating this ulcer, in an attempt to stop an episode of neuropathy. 11/10/16. Seen by Mitch Cota PA-C. The patient returns for evaluation of his recently healed ulcer, fearing that it is open again. He has not seen liquid drainage but fears it is draining under the callous. 11/04/16. Seen by Mitch Cota PA-C. The patient does not report any difficulties with his TCC this week. 10/24/16. Seen by Dr. Howe. The patient does not report any problems regarding his TCC and staff do not repot significant drainage on the dressing overlying the left plantar foot diabetic ulcer. His blood sugars remain well controlled with most below 150. 10/20/16 Seen by Mitch Cota PA-C. The patient is here for placement of a TCC to offload his left plantar foot diabetic ulcer. He notes that the drainage from his ulcer has soaked through the TCC under-layers and almost soaked through the cast. 10/15/16. Seen by Dr. Howe. The patient tolerated his TCC with minimal discomfort noting mild pain in the left 1st toe. The staff do not report significant drainage associated with the chronic left plantar foot diabetic ulcer and he states his blood sugars are mostly below 150. He's now been placed in a TCC to optimize offloading needed to accommodate for the left foot Charcot deformity that's lead to recurrent heavy callus formation in the periulcer area. 10/13/16 Seen by Mitch Cota PA-C. The patient reports no increase in drainage from his left foot diabetic non-pressure ulcer since his last evaluation. 09/29/15 Seen by Mitch Cota PA-C. The patient reports no increase in drainage from his chronic left foot diabetic ulcer. He does voice frustration that his wound is taking so long to heal. 09/19/16. Seen by Dr. Howe. The patient does not report increased drainage or other acute issues regarding his chronic left plantar foot diabetic ulcer since his last visit. 09/12/16. Seen by Dr. Howe. The patient does not report significant drainage associated with the chronic left plantar foot diabetic ulcer over the past week. He's applying Kerasal to the periwound callus as recommended and has limited his walking considerably, in addition to wearing an offloading shoe, to minimize callus formation. His blood sugars also remain well controlled with most below 150 and he continues on Bactrim for an infection of the ulcer without reporting adverse side effects. 09/05/16. Seen by Dr. Howe. The patient returns to clinic with recurrent of his left plantar foot diabetic ulcer that he states reopened about 2 weeks ago. He was placed on Keflex by his PCP yesterday due to the appearance of the ulcer and significant drainage. He states his blood sugars are well controlled and he limits his walking to help facilitate offloading. 07/28/16. Seen by Dr. Howe. The patient does not report significant drainage associated with the chronic left plantar foot diabetic ulcer over the past week. He's applying Kerasal to the periwound callus as recommended and states his blood sugars are consistently below 150. He does report ongoing nausea for the past few weeks and states he's on 3 nausea medications but does not know what's causing it. He's working with his PCP on this problem. 07/15/16 Seen by Mitch Cota PA-C. The patient reports no fever chills or pain from his left foot diabetic ulcer since his last evaluation. 07/10/16. Seen by Dr. Howe. The patient does not report significant drainage associated with the chronic left plantar foot diabetic ulcer over the past week. He's applying Kerasal to the periwound callus as recommended and has limited his walking considerably, in addition to wearing an offloading shoe, to minimize callus formation. 07/08/16 Seen by Mitch Cota PA-C. The patient reports no increase in pain or drainage from his ulcer, though he does report nausea and vomiting. After further review, it appears that his PPI prescription has run out and he stopped it abruptly. He has not had associated fever, chills or lower GI symptoms. His blood sugars have reportedly been above 150 this week. The patient reports that he still has problems with callous formation on his feet and will be seeing podiatry. 07/04/16. Seen by Dr. Howe. The patient does not report significant drainage associated with the chronic left plantar foot diabetic ulcer since his last visit. He does report significant nausea and vomiting over the past week however but does not report fever, cough, or other specific symptoms and feels the nausea has started to improve as of yesterday. He states his blood sugars have been well controlled with most below 150 and he's on Augmentin for the recent MSSA and Strep positive wound culture. He's also been applying Kerasal to the periwound callus as recommended and has been limited in his walking the past week due to illness. 06/23/16 Seeb by Mitch Cota PA-C. The patient reports that he believes he has an infection in his foot because his dog has been sniffing and licking his open ulcer. He believes his dog has a nose for infection. He reports a continuous, strong, foul odor from his left plantar foot ulcer for the past 3 days with an associated increase in drainage. In addition he has not been offloading his foot as instructed and is going barefoot at home. 06/16/16 Seen by Mitch Cota PA-C. The patient reports that he is walking barefoot in the house and only wears shoes outside the house. His left foot diabetic ulcer drainage has been stable. 06/02/16 Seen by Mitch Cota PA-C. The patient reports that he is due to have a new orthotic fitted for his deformed left foot to further offload his chronic left foot ulcer. He reports stable drainage from this ulcer. 05/27/16 Seen by Mitch Cota PA-C. The patient reports that he now has a new wound near his chronic left plantar foot diabetic ulcer. The new wound began spontaneously and was noted today. His chronic ulcer has had stable drainage. 05/19/16. Seen by Dr. Howe. The patient does not report significant drainage associated with the chronic left plant foot diabetic ulcer over the past week and he states his blood sugars are well controlled with most below 150. 05/12/16. Seen by Dr. Howe. The patient reports some new pain along the right foot surgical scar but no swelling or drainage from the site. He does not recall injuring the foot and feels he may have been more active over the past week. He does not report significant or drainage associated with the left plantar foot diabetic ulcer and states he's not been able to check his blood sugars due to the fact he ran out of glucometer strips this past week. His blood sugar today is 280. 04/11/16. Seen by Dr. Howe. The patient does not report pain or drainage associated with the chronic right lateral foot diabetic ulcer of the past week. He states his blood sugars are consistently below 150 and he is wearing his offloading shoe is recommended. 04/04/16. Seen by Dr. Howe. 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 He states his blood sugars are mostly below 150 and he's offloading using a surgical offloading shoe. He's now off of antibiotics and is here today with his granddaughter who's assisting with his care. 03/31/16 Seen by Mitch Cota PA-C. The patient has returned from [facility] where he had a 4th ray amputation performed to his right foot. He reports that he was supposed to have follow up appointments with surgery, cardiology and wound care but has not attended any of these appointments due to transportation difficulties. He is unsure of when his sutures are supposed to be removed. 02/28/16 Seen by Mitch Cota PA-C. The patient was seen at [facility] and evaluated by Dr. Monae on an urgent basis as arranged by Dr. Howe at his last visit. The patient reports that Dr. Monae wanted to urgently take him to surgery but the patient would prefer to have Dr. Garcia do it and refused admission to the hospital. 02/21/[address] Howe. The patient does not report pain or significant drainage associated with the Alonzo grade 3 right lateral foot diabetic ulcer and he saw Dr. Garcia , podiatry, this morning who reportedly states she's not able to perform any additional debridement until his right leg vascular status is further evaluated. He had an arterial Doppler scheduled yesterday however both the patient and his son state they were unaware of the appointment. He started taking his Augmentin, which is treating the MSSA and Strep viridans culture from 02/15/16, following the last visit as recommended, states his blood sugars have been consistently below 150 over the past week, and he's offloading by wearing a surgical shoe and significantly limiting his walking. Of note, he's still on supplemental oxygen following his recent hospital discharge and gets short of breath on minimal exertion. Please see my note below from his last visit regarding details of the admission and amputation. 02/15/[address] Howe. The patient does not report pain associated with the right lateral foot diabetic ulcer. He was discharged 4 days ago following a partial ray amputation of the 5th toe and MT due a progressive foot infection that he states occurred over about 2 days prior to being admitted to the hospital. His wound culture on arrival to the ER was polymicrobial and reported on Group C Strep. He was treated with IV Zosyn during the admission and prescribed Augmentin on discharge however he's not yet picked up the prescription. His blood sugars have been relatively well controlled with most below 150 since discharge. Of note, he also had a non-ST elevation CO post-operatively, acute on chronic renal failure with a Cr of 1.8 on discharge, and acute respiratory failure and continues on supplemental oxygen. 12/27/[address] Howe. The patient does not report drainage or pain associated with the chronic right plantar foot diabetic ulcer over the past week. He's not been applying Kerasal to the associated callus as recommended however he does not have diabetic shoes and a new AFO that he's been wearing. His blood sugars also remain relatively well controlled below 150 consistently. 12/06/[address] Howe. The patient does not report pain or significant drainage from the chronic right plantar foot diabetic ulcer. His blood sugars remain well controlled around 120 and he's now wearing his new diabetic shoes and offloading by limiting his walking significantly. He's also applying Kerasal daily to the right foot calluses as recommended. 11/29/[address] Howe. The patient does not report significant drainage from the chronic right plantar foot diabetic ulcer and he states his blood sugars remain well controlled below 150. He's also wearing his diabetic shoes now and limiting his walking to facilitate offloading. 11/23/[address] Howe. The patient reports moderate drainage but no pain associated with the chronic right plantar foot diabetic ulcer. He continues on doxycycline for a polymicrobial positive wound culture and he states his blood sugars remain well controlled with most below 120. 11/15/[address] Howe. The patient's wound culture from the last visit grew Enterobacter, Staph, and group G Strep however he's not yet picked up his prescription for doxycycline. He has at least moderate serosanquinous drainage on the dressing and states he's been a bit more active this past week as his son has been sick and unable to do the shopping. His blood sugar was also elevated yesterday near 200 but has been relatively well controlled prior to that. 11/08/15 Seen by Mitch Cota PA-C. The patient reports that his son is sick and he has been up on his feet taking care of him and has been unable to stay off of his feet. He has noted more drainage from his right plantar foot diabetic ulcer in the past few days. He also reports that his current shoes with inserts are making a large callous on his right heel and he doesn't feel that they offload his ulcer, so he has been trying to walk on the lateral edge of his right foot to offload his ulcer, and now is having lateral right foot pain as a result. 11/01/[address] Howe. The patient admits to being more active over the past two weeks but states there's only been very minimal drainage from the right plantar foot diabetic ulcer. His blood sugars also remain well controlled below 150 consistently. 10/18/[address] Howe. The patient does not report drainage from the right foot plantar diabetic ulcer however he states he has been more active the past week in terms of walking. His blood sugars also remain well controlled below 150. 10/11/[address] Howe. The patient does not report pain or drainage associated with the right plantar foot nor heel diabetic ulcers. 10/04/[address] Howe. The patient does not report drainage from the right plantar foot diabetic ulcer and he continues to use Kerasal daily for the significant right heel callus. His blood sugars are also well controlled below 120 consistently. 09/27/[address] Howe. The patient reports only minimal drainage from the right plantar foot diabetic ulcer and states his blood sugars continue to improve with most between 120 and 180. He's also applying Kerasal to the bilateral foot calluses daily as we've requested. 09/19/[address] Howe. The patient reports significantly decreased drainage from the right plantar foot diabetic ulcer and he'll complete his course of levofloxacin today that treating the polymicrobial wound culture from 09/04/15. His blood sugars are also much better controlled over the past week with most around 150 and very few over 200. 09/12/[address] Howe. The patient continues to report significant drainage from the right plantar diabetic foot ulcer and his wound culture from 09/04/15 grew Strep , Providencia, and Neisseria species. He's now on levofloxacin and does not report adverse effects. He's also no longer experiencing severe hypoglycemic episodes and is working closely with is PCP on adjusting his insulin regimen. His blood sugars due tend to remain over 200 however. 09/07/[address] Howe. The patient continues to report blood sugars as low as the 40's since our visit last week. Regarding his foot ulcers, he reports continued foul smelling drainage from the right foot diabetic ulcer but none from right heel or left foot diabetic ulcer. His blood sugars also may be as high as 300 and he states he's compliant with his diabetes medication regimen and will require as much as 30-40 units of short acting insulin on occasion. He does not report pain in the feet nor fevers or other systemic symptoms. 08/31/[address] Howe. The patient is new to our clinic. On arrival he was not feeling well and was tremulous. The MA checked his blood sugar and is registered 34 which is the lowest the glucometer would read. I spoke with him and he reported feeling very unwell at which time he was urgently transferred to the ER. Of note, he was in the clinic to review bilateral diabetic foot ulcers. He'd also recently lost a son and has been very upset the past week according to staff. Past Medical History This information was obtained from the patient Patient has a medical history of: Chronic Obstructive Pulmonary Disease (COPD) Type II Diabetes (A1c 7.4 on 11/12/2015) PAD Peripheral neuropathy Hypoglycemia CVA Diabetic foot ulcer (Right plantar 1st MTPJ, Alonzo grade II) Coronary Artery Disease (CAD) (s/p CO during admission on 02/04/2016) Lumbar strain CHF Hyperlipidemia CKD stage 3 Gout Diabetic foot ulcer - 02/04/2016 (right lateral foot s/p partial ray amputation; Alonzo grade 3; MSSA and Strep viridans cultured) Complaints and Symptoms This information was obtained from the patient Patient complains of: General Notes: I have reviewed and concur with the Review of Systems and Past Family Social History documents completed by the clinician, I have reviewed and concur with the Wound Assessment document completed by the clinician Cardiovascular (Central): Dyspnea on Exertion Ear/Nose/Mouth/Throat: Hearing Loss / Aid Integumentary (Hair/Skin/Nails): Open Sore Musculoskeletal: Assistive Devices, Deformities Neurological: Loss of Protective Sensation Prior Wound History: Drainage, Erythema, Malodor Patient denies complaints or symptoms related to: Cardiovascular (Central/Peripheral): Intermittent Claudication, Lower extremity (leg) resting pain Constitutional Symptoms (General Health): Chills, Fever Gastrointestinal (GI): Nausea / Vomiting, Stomach/abdominal pain Hematologic/Lymphatic: Bleeding / Clotting Disorders, Bleeding Tendency Musculoskeletal: Muscle Weakness Prior Wound History: Bleeding, Pain Psychiatric: Anxiety, Memory Loss Respiratory: Oxygen Use, Shortness of Breath Additional Information Does patient have a history of Cancer? Yes? Complete all questions.: Yes Location of Cancer: Skin cancer Patient underwent Radiation Treatment? If yes, answer question below.: No OBJECTIVE Constitutional BP elevated; Afebrile; Alert and in no distress. Well developed. Alert. Clean appearing.. Height/Length: 72 in (182.88 cm), Weight: 217.2 lbs (98.73 kgs), BMI: 29.5, Temperature: 97.5 ?F (36.39 ?C), Pulse: 70 bpm, Respiratory Rate: 18 breaths/min, Blood Pressure: 145/74 mmHg, Capillary Blood Glucose: 182 mg/dl, Pulse Oximetry: 97 %. Vital Signs Notes: Glucose per patient. Ears, Nose, Mouth, and Throat: Mild hearing deficit. Respiratory: No respiratory distress. Even respirations and without use of accessory muscles.. Cardiovascular: Affected extremity exhibits no peripheral edema or cyanosis, is warm, and is well perfused. Capillary refill is less than 2 seconds. Musculoskeletal: Right lateral foot partial amputation. Integumentary (Hair, Skin) No periwound erythema, warmth, or significant drainage. No periwound rashes appreciated or noted otherwise.. Refer to appropriate clinician wound documentation for this visit; right and left foot ulcers extend to subcut with bases partially covered with pink granulation, remainder fibrin and slough. Maceration and callus present in the periwound areas. Wound #11 Left Metatarsal head first is a chronic Alonzo Grade 2 Diabetic Ulcer and has received a status of Not Healed. Subsequent wound encounter measurements are 1.6cm length x 1cm width x 0.3cm depth, with an area of 1.6 sq cm and a volume of 0.48 cubic cm. Hypergranulation was noted. No tunneling has been noted. No sinus tract has been noted. No undermining has been noted. There is a moderate amount of serosanguineous drainage noted which has no odor. The patient reports no wound pain due to the wound being insensate. The wound margin is callus. Wound bed has No epithelialization, No eschar, Yes slough, Yes bright red, pink, spongy granulation. The periwound skin color is normal. The periwound skin exhibited: Callus, Moist. The periwound skin did not exhibit: Brawny Induration, Edema, Excoriation, Induration, Crepitus, Fluctuance, Friable, Rash, Dry/Scaly, Maceration. The temperature of the periwound skin is WNL. Periwound skin does not exhibit signs or symptoms of infection. Local Pulse is Palpable. Wound #12 Right, Plantar Metatarsal head first is a Alonzo Grade 2 Diabetic Ulcer and has received a status of Not Healed. Subsequent wound encounter measurements are 1.8cm length x 0.8cm width x 0.1cm depth, with an area of 1.44 sq cm and a volume of 0.144 cubic cm. No tunneling has been noted. No sinus tract has been noted. No undermining has been noted. There is a moderate amount of serosanguineous drainage noted which has no odor. The patient reports no wound pain due to the wound being insensate. The wound margin is callus. Wound bed has Yes epithelialization, No eschar, Yes slough, Yes pink, firm granulation. The periwound skin exhibited: Callus, Moist. The periwound skin did not exhibit : Brawny Induration, Edema, Excoriation, Induration, Crepitus, Fluctuance, Friable, Rash , Dry/Scaly, Maceration, Atrophie Yola, Cyanosis, Ecchymosis, Erythema, Hemosiderosis, Pallor, Rubor. The temperature of the periwound skin is WNL. Periwound skin does not exhibit signs or symptoms of infection. Local Pulse is Normal. Neurological: Cranial nerves grossly intact with symmetric function normal by informal observation.. ASSESSMENT Active Problems ICD-10 (Encounter Diagnosis) L97.522 - Non-pressure chronic ulcer of other part of left foot with fat layer exposed (Encounter Diagnosis) L97.512 - Non-pressure chronic ulcer of other part of right foot with fat layer exposed (Encounter Diagnosis) E11.621 - Type 2 diabetes mellitus with foot ulcer (Encounter Diagnosis) Z91.19 - Patient's noncompliance with other medical treatment and regimen PROCEDURES Wound #11 Wound #11 (Diabetic Ulcer) is located on the left metatarsal head first. A skin/ subcutaneous tissue level surgical debridement with a total area debrided of 1.76 sq cm was performed by Nando Howe MD. Subcutaneous was removed along with devitalized tissue: callus, exudate, and slough. The following instrument(s) were used: curette. Pain control was achieved using 4% Lido. A time out was conducted prior to the start of the procedure. A moderate amount of bleeding was controlled with pressure. The procedure was tolerated well with a pain level of 0 throughout and a pain level of 0 following the procedure. Post Debridement Measurements: 1.6cm length x 1.1cm width x 0.5cm depth; with an area of 1.76 sq cm and a volume of 0.88 cubic cm; Wound #12 Wound #12 (Diabetic Ulcer) is located on the right, plantar metatarsal head first. A skin/subcutaneous tissue level surgical debridement with a total area debrided of 1.44 sq cm was performed by Nando Howe MD. Subcutaneous was removed along with devitalized tissue: callus, exudate, and slough. The following instrument(s) were used: curette. Pain control was achieved using 4% Lido. A time out was conducted prior to the start of the procedure. A moderate amount of bleeding was controlled with silver nitrate. The procedure was tolerated well with a pain level of 0 throughout and a pain level of 0 following the procedure. Post Debridement Measurements: 1.8cm length x 0.8cm width x 0.2cm depth; with an area of 1.44 sq cm and a volume of 0.288 cubic cm; Wound #12 (Diabetic Ulcer) is located on the right, plantar metatarsal head first. A Total Contact Cast procedure was performed by Nando Howe MD. General Notes: TCC applied to right leg as per protocol. Additional Information Muscle fascia or bone removed and sent to pathology?: No Muscle fascia or bone removed and sent to pathology?: No PLAN Wound Orders: Wound #11 Left Metatarsal head first Anesthetic Topical Xylocaine to wound bed. - In clinic only. Cleanser Cleanse Wound: - Normal saline and gauze, may use distilled water at home. May Shower. - Keep covered in shower with cast protector or plastic bag. Topical Treatments Antibiotic/Antimicrobial Ointment/Cream. - Gentamicin ointment. Dressings Cover and secure with: - Foam and hypafix tape. Change Dressing: - Every other day. Wound #12 Right, Plantar Metatarsal head first Anesthetic Topical Xylocaine to wound bed. - In clinic only. Cleanser Cleanse Wound: - Normal saline and gauze, may use distilled water at home. May Shower. - Keep covered in shower with cast protector or plastic bag. Topical Treatments Antibiotic/Antimicrobial Ointment/Cream. - Gentamicin ointment. Dressings Primary dressing: - TCC foam secured with paper tape. Cover and secure with: - Cotton cast padding wrapped around foot and ankle, and foam taped to pacheco to protect himanshu prominences. Off-Loading Total Contact Cast - Applied to right leg. Additional Orders: Off-Loading Keep weight off: - Both feet as much as possible. Follow-Up Appointments Return Appointment: - - One week for TCC. Other information: If you develop fever, chills, increased pain, drainage, redness or swelling please call our office. If after hours, respond to the ER. Should you experience any significant changes in your wound(s) or have any questions regarding your home care instructions please contact the wound center @ [phone]. If after hours, contact your primary care physician or go to the hospital emergency room. Scribing Attestation I attest, as the nurse, that I scribed these orders for the physician. I've reviewed the clinician's documentation and agree with the evaluation and plan as written. In addition the patient's ulcers demonstrate evidence of non-viable devitalized tissue and they will continue to benefit from sharp debridement to help promote granulation and expedite healing. Also, I placed another total contact cast today after holding therapy last week and will monitor closely for any blisters or trauma from the cast. He has also again been advised to not expose the cast nor the left foot ulcer to water in the shower, or otherwise. Electronic Signature(s) Signed By: Date: Nando Howe MD 05/19/2018 07:48:36 Entered By: Nando Howe on 05/19/2018 07:37:34
== END ==
PROVIDERS: Family Provider Physician Assistant Medical; PCP Physician Assistant Medical; Visit Provider Internal Medicine
DX: L97.522 Non-pressure chronic ulcer of other part of left foot with fat layer exposed (principal); L97.512 Non-pressure chronic ulcer of other part of right foot with fat layer exposed; E11.621 Type 2 diabetes mellitus with foot ulcer; Z91.19 Patient's noncompliance with other medical treatment and regimen
CPT/HCPCS: 11042

== ENCOUNTER → 2018-05-25 11:22 | Outpatient (CLI) | payer MEDICARE, SELFPAY ==
--- NOTE | 2018-05-25 | OV.WND_ITS ---
Progress Note Details Patient Name: Nick Drake Patient Number: [id number] PatientPatientDate: 05/25/2018 Clinician: Deanna Floyd Clinician Cosigner: Mary Rosales Physician / Heel Slugger: Nando Howe SUBJECTIVE Chief Complaint This information was obtained from the patient Diabetic ulcers to right and left foot. Allergies Minipress (Severity: Severe, Reaction: violent behavior), Vicodin (Severity: Mild, Reaction: itching), nortriptyline (Severity: Moderate), Avandia (Severity: Moderate) HPI This information was obtained from the patient 05/25/18. Seen by Dr. Howe. The patient does not report any complications regarding the right foot total contact cast that was placed 7 days ago and the staff do not report increased drainage or other acute issues regarding the bilateral plantar foot diabetic ulcers. 05/18/18. Seen by Dr. Howe. The patient does not report increased drainage associated with the bilateral plantar 1st MTPJ diabetic ulcers since his last visit. He admits thought to not covering the ulcers while he showers despite our recommendation to wear a cast protector and prevent them from getting wet. 05/13/18. Seen by Dr. Howe. The patient does not report any complications regarding the right foot total contact cast that was placed 7 days ago and the staff do not report increased drainage or other acute issues regarding the bilateral plantar foot diabetic ulcers. There is a possible blister noted however over the posterior right heel. 05/06/18. Seen by Dr. Howe. The patient does not report any complications regarding the right foot total contact cast that was placed 2 days ago and the staff do not report increased drainage or other acute issues regarding the bilateral plantar foot diabetic ulcers. 05/03/18. Seen by Dr. Howe. The patient did not make is appointments last week due to a GI issue. He does not report increased drainage associated with the bilateral plantar 1st MTPJ diabetic ulcers since his last visit however and we're planning on placing a TCC to better offload the right foot ulcer today. Of note, he has a partial right lateral foot amputation that's contributing to heavy periulcer callus formation and the refractory nature of the ulcer. 04/23/18. Seen by Dr. Howe. The patient does not report increased drainage associated with the bilateral plantar 1st MTPJ diabetic ulcers since his last visit. He reports being sick over the past week with nausea and vomiting which has mostly resolved as of today. 04/20/18. Seen by Dr. Howe. The patient does not report increased drainage associated with the bilateral plantar 1st MTPJ diabetic ulcers since his last visit. Also, his total contact cast was ordered but is not available today. It's to be placed on the right lower leg to better facilitate offloading in light of his partial right lateral foot amputation that's contributing significantly to callus formation and the refractory nature of the right foot ulcer. He also missed his appointment with cardiology on 04/07 to discuss intervention for his bilateral lower leg PAD which is also complicating his wound healing. 04/13/18. Seen by Dr. Howe. The patient does not report increased drainage associated with the bilateral plantar 1st MTPJ diabetic ulcers since his last visit. He states he's wearing his right lower leg ANDREAFSKI boot as recommended which is offloading the ulcer and addressing the partial right foot amputation which contributes considerably to recurrent and heavy callus formation. 04/09/18. Seen by Dr. Howe. The patient does not report increased drainage associated with the bilateral plantar 1st MTPJ diabetic ulcers since his last visit. His blood sugar is 226 today and he admits to eating some candy yesterday. 04/06/18. Seen by Dr. Howe. The patient does not report increased drainage associated with the bilateral plantar 1st MTPJ diabetic ulcers since his last visit. His bilateral arterial Doppler performed in February showed possible clinically significant PAD with a high grade stenosis of the right SFA and possible left common femoral inflow obstruction and bilateral lower leg with monophasic flow noted. He does not report rest pain nor claudication however he' s very limited in his mobility due to the plantar foot diabetic ulcers. 04/02/18. Seen by Dr. Howe. The patient continues to wear his ANDREAFSKI boot to offload the right foot 1st MTPJ diabetic ulcer and address the significant deformity associated with the partial lateral foot amputation and he does not report increased drainage associated with this ulcer nor the left plantar foot diabetic ulcer since his last. His wound culture from the last visit grew Staph and group G Strep and he's not currently on antibiotics. 03/30/18. Seen by Dr. Howe. The patient missed his last two appointments and states over the 24 of March he was wearing socks on his deck and noticed bleeding from the bilateral diabetic foot ulcers. His blood sugars are over 400 today and he's run our of insulin and glucose strips. He does not report pain associated with the ulcers and notes he's not wearing his ANDREAFSKI boot on the right foot at all times as recommended. He has a right partial foot amputation and Charcot deformity of both feet. 03/22/18. Seen by Dr. Howe. The patient continues to wear his ANDREAFSKI boot to offload the right foot 1st MTPJ diabetic ulcer and address the significant deformity associated with the partial lateral foot amputation and he does not report increased drainage associated with this ulcer nor the left plantar foot diabetic ulcer since his last. 03/15/18. Seen by Mitch Cota PA-C. The patient reports that he is compliant with his ANDREAFSKI boot but notes increased bleeding and drainage seen in the boot. 03/11/18. Seen by Mitch Cota PA-C. The patient reports stable drainage from his diabetic foot ulcers. His blood sugars continue to be above 150 this week. 03/04/18. Seen by Dr. Howe. The patient continues to wear his ANDREAFSKI boot to offload the right foot 1st MTPJ diabetic ulcer and address the significant deformity associated with the partial lateral foot amputation and he does not report increased drainage associated with this ulcer nor the left plantar foot diabetic ulcer since his last. He recently completed a course of doxycycline to treat a group G Strep positive culture and is applying iodosorb to the ulcers to help manage the persistent drainage. 03/01/18. Seen by Dr. Howe. The patient continues to wear his ANDREAFSKI boot to offload the right foot 1st MTPJ diabetic ulcer and address the significant deformity associated with the partial lateral foot amputation. He does not report significant drainage associated with this ulcer nor the left plantar foot diabetic ulcer since his last. 02/25/18. Seen by Dr. Hwoe. The patient will complete his course of doxycycline today that's treating the Staph and group G Strep positive culture taken from the right foot diabetic ulcer. He does not report adverse side effects and nor significant drainage from the ulcer or the left plantar foot diabetic ulcer. 02/22/18. Seen by Dr. Howe. The patient is now on doxycycline for the Staph and group G Strep positive culture taken from the right foot diabetic ulcer last week. He notes some bloody drainage from this site on his dressing today but feels this ulcer and the left foot diabetic ulcer have improved over the past few week. He's offloading the right foot which has a partial lateral amputation using his ANDREAFSKI boot as recommended however he's not using a frame walker. He does not report adverse side effects of the antibiotics nor other acute issues today. 02/18/18. Seen by Dr. Howe. The staff report increased drainage associated with both plantar foot 1st MTPJ diabetic ulcers and the patient reports a malodor from the dressings over the past week. He does not report fevers, feeling unwell, or pain in the feet but states his blood sugars have been a bit elevated in the 180s. He's also wearing his ANDREAFSKI boot as recommended on the right foot but states he does not have enough room in his house to use a knee scooter and does not use his frame walker. 02/11/18. Seen by Dr. Howe. The patient continues to wear his ANDREAFSKI boot to offload the right foot 1st MTPJ diabetic ulcer and address the significant deformity associated with the partial lateral foot amputation. He does not report significant drainage associated with this ulcer nor the left plantar foot diabetic ulcer since his last visit however the nurse states the mole skin dressing was applied inappropriately over the left foot ulcer and was overlying the ulcer itself and soaked with drainage. 02/04/18. Seen by Dr. Howe. The patient continues to wear his ANDREAFSKI boot to offload the right foot 1st MTPJ diabetic ulcer and address the significant deformity associated with the partial lateral foot amputation. He does not report significant drainage associated with this ulcer nor the left plantar foot diabetic ulcer since his last visit. 01/28/2018. Seen by Dr. Howe. The patient is now wearing his ANDREAFSKI boot to offload the right foot 1st MTPJ diabetic ulcer and address the significant deformity associated with the partial lateral foot amputation. He does not report significant drainage associated with this ulcer nor the left plantar foot diabetic ulcer since his last visit. 01/26/18. Seen by Dr. Howe. The patient states he has been without his insulin for over a week which is likely the cause of his blood sugars being around 400 over the past few visits. He has also not contacted his orthotics provider regarding the offloading ANDREAFSKI boot to wear on the right foot noting his significant deformity caused by the partial lateral foot amputation. He has not report increased drainage or other acute changes regarding his bilateral diabetic foot ulcers and will complete his course of doxycycline its treated the recent MSSA positive culture tomorrow. He also reports nausea and one episode of emesis earlier today but not other acute issues. 01/21/2018. Seen by Dr. Howe. The patient arrived today with his right foot dressing upside down. His blood sugars are also over 400. The patient does not report increased drainage associated with the right or left diabetic foot ulcers however states his neuropathic pain has been significant over the past 2 days. He also is going to order picker his ANDREAFSKI boot today to help facilitate offloading of the right foot diabetic ulcer noted in he also has a partial lateral amputation on his foot that is contributed significantly 2. Ulcer callus formation. He also continues on doxycycline for he recent MSSA positive wound culture. 01/18/2018. Seen by Dr. Howe. The patient's wound culture from the left foot diabetic ulcer grew MSSA resistant to gentamicin. He is not currently on oral antibiotics and does not report increased drainage from either left right foot diabetic ulcers and is still waiting for his ANDREAFSKI boot to be available to help facilitate better offloading of the right foot noting his partial lateral right foot amputation and severe Charcot deformity. 01/14/18. Seen by Dr. Howe. The patient continues to report moderate drainage from the right and left diabetic foot ulcers over the past few days and he's seen his gasoline service attendant who's ordered a ANDREAFSKI boot for the right foot which should be available next week. He has severe bilateral Charcot deformities and partial right lateral foot amputation that contributes to the refractory nature of the ulcers and very heavy callus formation. 01/12/18. Seen by Dr. Howe. The patient reports moderate drainage from the right and left diabetic foot ulcers and he's seen his gasoline service attendant who's ordered a ANDREAFSKI boot for the right foot. He has bilateral partial lateral foot amputations which have resulted in refractory calluses of the bilateral plantar MTPJ's and associated DFU's. His blood have been well controlled and his recent hypoglycemic episodes have resolved. 01/07/18. Seen by Dr. Howe. The patient missed his last 2 appointments due to a GI illness last week and she reports some pain in the lateral aspect of the right forefoot but no increased drainage, swelling, or other acute changes of the diabetic foot ulcer. He also does not report any acute issues regarding the left diabetic foot ulcer. Of note, he has significant deformities of both feet due to partial amputations which have each contributed significantly to severe callus formation and the refractory nature of the ulcers. 01/01/18. Seen by Dr. Howe. The patient continues on clindamycin for the chronic right diabetic foot ulcer infection and it is not reported adverse side effects. He also does not report significant drainage associated with either left or right diabetic foot ulcer since his last visit. 12/28/17. Seen by Dr. Howe. The patient does not report increased drainage associated with either right or left foot diabetic ulcers since his last visit. He continues on clindamycin without reporting adverse side effects to treat the chronic right ulcer infection and his blood sugars are well controlled. Of note, he has been attending clinic twice weekly to optimize management of his recurrent and severe apollo-ulcer calluses that are in part due to his severe Charcot deformities and bilateral partial foot amputations. 12/21/17. Seen by Dr. Howe. The patient reports some drainage associated with the right foot diabetic ulcer since his last visit but none associated with the left foot diabetic ulcer. He completed his course of doxycycline today is treating the recent MSSA positive wound culture and is reported adverse side effects, fevers, feeling unwell. He states his blood sugars continue to be well controlled below 180. 12/15/17. Cinthia Howe. The patient's wound culture from the left plantar foot diabetic ulcer his last visit grew MSSA resistant to gentamicin. He does not report increased drainage or pain from either diabetic foot ulcers since his last visit. 12/10/17. Seen by REN Olea. The patient does not report increased drainage from his bilateral diabetic foot ulcers but does report continued odor. Notes a large amount of callous growth. Wound culture from last week showed MSSA and Diphtheroids. He has been applying topical gentamicin. 12/03/17. Seen by Mitch Cota PA-C. The patient reports increased drainage and odor from his bilateral diabetic foot ulcers. He continues to have elevated blood sugars. 11/26/17. Seen by Mitch Cota PA-C. The patient reports that he has decreased his usage of marijuana which he uses for recreation and to treat his neuropathy. He has not had a ground level fall since decreasing his usage. His blood sugars remain >150 and his ulcers' drainage is stable. 11/20/17. Seen by Mitch Cota PA-C. The patient reports no increase in his ulcer drainage from his bilateral lower extremity diabetic ulcers. He has not scheduled an appointment to see his PCP to address his consistently high blood sugars. 11/13/17. Seen by Mitch Cota PA-C. The patient reports stable drainage from his diabetic foot ulcers and continued difficulty keeping his blood sugars below 150. He also reports not wearing his diabetic shoes when at home. 11/09/17. Seen by Mitch Cota PA-C. The patient reports high blood sugars again this week. He does not report increased drainage though he notes callous formation continues to happen quickly between visits. 11/06/17. Seen by Dr. Howe. The patient does not report increased drainage associated with the chronic bilateral diabetic foot ulcers since the last visit. 11/02/17. Seen by Mitch Cota PA-C. The patient reports no increased drainage from his bilateral diabetic foot ulcers. He is not surprised that his blood sugar is low this morning as he did not eat dinner yesterday or breakfast today, citing mild GI discomfort. 10/30/17. Seen by Dr. Howe. The patient missed a few appointments recently due to our facility power outage however he does not report increased drainage or other acute issues regarding his bilateral first MTPJ plantar foot diabetic ulcers. 10/23/17. Seen by Mitch Cota PA-C. The patient reports that he did not take his insulin, or eat this morning. Drainage from his diabetic foot ulcers has been stable. 10/15/17. Seen by Mitch Cota PA-C. The patient reports high blood sugars this week and stable drainage from his foot ulcers. 10/13/17. Seen by Dr. Howe. The patient does not report increased drainage associated with the bilateral plantar foot diabetic ulcers since his last visit. 10/01/17. Seen by Dr. Howe. The patient does not report increased drainage associated with either left or right plantar foot diabetic ulcers since his last visit. 10/01/17. Seen by Dr. Howe. The patient does not report increased drainage associated with either left or right plantar foot diabetic ulcers since his last visit. 09/28/17. Seen by Dr. Howe. The patient does not report increased drainage associated with either left or right plantar foot diabetic ulcers since his last visit. He has been offloading as recommended as well. 09/24/17. Seen by Dr. Howe. The patient reports some increased drainage associated with the right chronic diabetic foot ulcer but none with the left chronic diabetic foot ulcer since his last visit. His blood sugars have been well controlled and he does not report pain in either feet or fevers or feeling unwell. He had been seen twice weekly due to the recent deterioration of the right foot ulcer and need for frequent debridement of the periulcer callus. 09/16/17. Seen by Dr. Howe. The patient does not report significant drainage associated with the bilateral plantar foot diabetic ulcers since last visit and his blood sugars are well controlled over the past week. 09/11/17. Seen by Dr. Howe. The patient states that the right foot diabetic ulcer bled significantly earlier this week when he got out of the shower. He had his INR checked yesterday and it was 3.5. He does not report increased drainage otherwise from either the left or right foot diabetic ulcers since his last visit. He's been seen as twice weekly for the past 2 weeks due to the very heavy accumulation of callus associated with the right foot ulcer. 09/08/17. Seen by Dr. Howe. The patient does not report increased drainage associated with bilateral foot diabetic ulcers since his last visit. 09/04/17. Seen by Dr. Howe. The patient does not report significant drainage associated with the bilateral plantar foot diabetic ulcers since last visit and his blood sugars are well controlled over the past week. 08/31/17. Seen by Dr. Howe. The patient does not report increased drainage associated with the bilateral plantar foot diabetic ulcers since his last visit and he continues on doxycycline for the positive right foot ulcer wound culture. His blood sugars have been well- controlled for the past week and he has had no further episodes of hypoglycemia. 08/26/17. Seen by Dr. Howe. The patient is now on doxycycline resistant MSSA positive wound culture taken from his right diabetic foot ulcer and does not report other side effects. He has picked up his new diabetic shoes and is wearing them as recommended. His blood sugar today is 58 in clinic and he has recently had his short-acting insulin increased by his primary care provider due to frequent episodes of hyperglycemia. He is scheduled to see his PCP again tomorrow to discuss the changes. 08/18/17. Seen by Mitch Cota PA-C. The patient reports a foul odor from his bilateral foot ulcers. He reports that he is feeling much better after an ER trip for hypoxia and his recent O2 saturation readings have been 100%. 08/06/17. Seen by Dr. Howe. The patient reports feeling unwell along with progressive shortness of breath while at rest over the past week. He says he had a low- grade fever at home today and staff report is O2 sats in low 90s upon arrival. He has a history of COPD also with possible admission for pneumonia within the past year. He is here for review of chronic diabetic foot ulcers that have been relatively stable for the past few weeks. 07/28/17. Seen by Mithc Cota PA-C. The patient reports increased drainage and bleeding from his diabetic foot ulcers. 07/20/17. Seen by Mitch Cota PA-C. The patient reports no increase in ulcer drainage since his last evaluation. 07/16/17. Seen by Mitch Cota PA-C. The patient has recently been in hospital where he had a NON-STEMI. He reports a reduction in drainage and wound odor after starting Augmentin. 07/01/17. Seen by Dr. Howe. The patient does not report significant drainage associated with the chronic bilateral plantar foot diabetic ulcers since his last visit. He will be picking up his new diabetic shoes today noting his partial right lateral foot amputation and multiple bilateral toe amputations plus Charcot deformity of both feet are contributing significantly to the recurrent heavy callus formation in the apollo-ulcer areas. He also states that he has not been covering his feet when he is in the shower despite our recommendation to do so. 06/19/17. Seen by Dr. Howe. The patient does not report significant drainage associated with the chronic bilateral plantar MTPJ diabetic ulcers since his last visit. Of note , the patient's blood sugar is 42 in clinic and was 35 earlier this morning. He's mildly symptomatic and is with his son who states the patient's food intake has been a bit less than usual due to limited funds at the end of the month. The patient also admits to trying to keep his blood sugars below 140 at all times and has had the problem of hypoglycemia in our clinic a number of times over the past year. 06/12/17. Seen by Dr. Howe. The patient does not report significant drainage associated with the chronic bilateral plantar MTPJ diabetic ulcers since his last visit. 06/05/17. Seen by Dr. Howe. The patient does not report significant drainage associated with the chronic bilateral plantar MTPJ diabetic ulcers since his last visit. He continues on Augmentin based on the recent wound culture and does not report adverse side effects. He also was seen by Dr. Garcia and his new diabetic shoes have been ordered noting his significant history of right lateral foot amputation and multiple toe amputations plus bilateral Charcot deformities. 05/29/17. Seen by Dr. Howe. The patient's wound culture from 2 days ago of a new right foot diabetic ulcer grew Streptococcus as well as Staph. He does not report increased drainage from this ulcer nor the chronic left foot diabetic ulcer. He is also not yet been seen by podiatry although we did send the referral over a couple weeks ago. His blood sugars continue to be well controlled and of note he has had extensive amputations of both the lateral aspect of the right foot as well as toes on both feet which has contributed significantly to recurrent callus and diabetic ulcer formation. 05/27/17. Seen by Mitch Cota PA-C. The patient reports a new ulcer to his right great toe that he believes has been continuously present for about a week. He denies any trauma to the area though states he may have been walking more lately. He is insensate and notes no pain, though he has seen purulent drainage in the area and notes a foul odor. 05/12/17. Seen by Dr. Howe. The patient does not report significant drainage associated with the chronic left plantar foot diabetic ulcer and he notes that heavy callus again has formed on the right plantar foot surface at the site of his recently healed diabetic ulcer. He has severe bilateral Charcot deformities along with multiple toe amputations that are contributing significantly to health information and the refractory and recurrent nature of his diabetic foot ulcers. He's also asked for us to address his toe nails today as it's been weeks since they've been trimmed. 05/05/17. Seen by Dr. Howe. The patient presents today with low blood sugars in the 40's and states he is feeling unwell in the waiting room. Upon my review he is lucid and eating and his blood sugars have increased into the 50s. He does not report any new problems regarding his chronic left foot diabetic ulcer and states that he has not discussed his hypoglycemia with his primary care provider yet despite having a number of episodes throughout the month. 04/28/17. Seen by Dr. Howe. The patient reports recurrence of his left plantar foot diabetic ulcer over the past week along with some new drainage that's quite malodorous. He does not report pain in the foot nor fevers nor any acute issues regarding his right lateral foot diabetic ulcer. He states his blood sugars continue to be well controlled with most below 120. 04/21/17. Seen by Dr. Howe. The patient does not report pain or drainage associated with the chronic right foot diabetic ulcers since his last visit. 04/14/17. Seen by Dr. Howe. The patient does not report pain or drainage associated with the chronic right foot diabetic ulcers since his last visit. His work diabetic shoe as recommended noting he is a partial right foot and right second toe amputations along with a significant Charcot deformity. 04/07/17. Seen by Dr. Howe. The patient does not report significant drainage or pain associated with the chronic right lower leg diabetic ulcers since his last visit. He snoring softly and she was recommended and reports his blood sugars have been well controlled. Of note, his significant deformity of the right foot including partial lateral amputation as well as second toe amputation and a significant Charcot deformity. 04/02/17. Seen by Dr. Howe. The patient reports that a coin accidentally fell into his right lower leg total contact cast a couple days ago. The staff found a johnson upon removing the cast as well as a new ulcer over the lateral aspect of the right foot. The patient does not report pain at the site nor does staff report significant drainage associated with new ulcer nor the chronic right plantar foot diabetic ulcer. The patient's blood sugars continue to be well controlled and he has no other acute complaints at this time. 03/28/17. Seen by Mitch Cota PA-C. The patient's recent wound culture demonstrated no growth. He has not noted increased drainage since his last evaluation. 03/23/17. Seen by Mitch Cota PA-C. The patient reports no increase in right foot ulcer drainage since his last evaluation. In addition his wound culture demonstrated no growth. 03/17/17. Seen by Dr. Howe. The patient does not report increased drainage associated with the chronic right first MTPJ diabetic ulcer.He completed his course of antibiotics that was treating the recent positive wound culture and does not report adverse side effects. He continues offload with a surgical shoe as well. 03/09/17. Seen by Dr. Howe. The patient does not report pain or significant drainage associated with the recurrent right foot diabetic ulcer. His culture of the ulcer was positive for a staph organism and Acinetobacter however he's not yet been started on antibiotics. He states his blood sugars continue to be well-controlled with most below 150. 03/02/17. Seen by Mitch Cota PA-C. The patient reports no improvement in drainage from his diabetic ulcer of the right foot. He has noted odor at times coming from the ulcer. 02/23/17. Seen by Mitch Cota PA-C. The patient reports no increase in drainage from his diabetic ulcer of the right foot. 02/09/17. Seen by Mitch Cota PA-C. The patient reports that he has just begun taking Bactrim for his infection of his right foot diabetic ulcer. He reports continued purulent drainage and odor. 02/02/17. Seen by Mitch Cota PA-C. The patient returns to our clinic with a new ulcer of his right first metatarsal head. He reportedly smacked his foot hard on the floor, creating this ulcer, in an attempt to stop an episode of neuropathy. 11/10/16. Seen by Mitch Cota PA-C. The patient returns for evaluation of his recently healed ulcer, fearing that it is open again. He has not seen liquid drainage but fears it is draining under the callous. 11/04/16. Seen by Mitch Cota PA-C. The patient does not report any difficulties with his TCC this week. 10/24/16. Seen by Dr. Howe. The patient does not report any problems regarding his TCC and staff do not repot significant drainage on the dressing overlying the left plantar foot diabetic ulcer. His blood sugars remain well controlled with most below 150. 10/20/16 Seen by Mitch Cota PA-C. The patient is here for placement of a TCC to offload his left plantar foot diabetic ulcer. He notes that the drainage from his ulcer has soaked through the TCC under-layers and almost soaked through the cast. 10/15/16. Seen by Dr. Howe. The patient tolerated his TCC with minimal discomfort noting mild pain in the left 1st toe. The staff do not report significant drainage associated with the chronic left plantar foot diabetic ulcer and he states his blood sugars are mostly below 150. He's now been placed in a TCC to optimize offloading needed to accommodate for the left foot Charcot deformity that's lead to recurrent heavy callus formation in the periulcer area. 10/13/16 Seen by Mitch Cota PA-C. The patient reports no increase in drainage from his left foot diabetic non-pressure ulcer since his last evaluation. 09/29/15 Seen by Mitch Cota PA-C. The patient reports no increase in drainage from his chronic left foot diabetic ulcer. He does voice frustration that his wound is taking so long to heal. 09/19/16. Seen by Dr. Howe. The patient does not report increased drainage or other acute issues regarding his chronic left plantar foot diabetic ulcer since his last visit. 09/12/16. Seen by Dr. Howe. The patient does not report significant drainage associated with the chronic left plantar foot diabetic ulcer over the past week. He's applying Kerasal to the periwound callus as recommended and has limited his walking considerably, in addition to wearing an offloading shoe, to minimize callus formation. His blood sugars also remain well controlled with most below 150 and he continues on Bactrim for an infection of the ulcer without reporting adverse side effects. 09/05/16. Seen by Dr. Howe. The patient returns to clinic with recurrent of his left plantar foot diabetic ulcer that he states reopened about 2 weeks ago. He was placed on Keflex by his PCP yesterday due to the appearance of the ulcer and significant drainage. He states his blood sugars are well controlled and he limits his walking to help facilitate offloading. 07/28/16. Seen by Dr. Howe. The patient does not report significant drainage associated with the chronic left plantar foot diabetic ulcer over the past week. He's applying Kerasal to the periwound callus as recommended and states his blood sugars are consistently below 150. He does report ongoing nausea for the past few weeks and states he's on 3 nausea medications but does not know what's causing it. He's working with his PCP on this problem. 07/15/16 Seen by Mitch Cota PA-C. The patient reports no fever chills or pain from his left foot diabetic ulcer since his last evaluation. 07/10/16. Seen by Dr. Howe. The patient does not report significant drainage associated with the chronic left plantar foot diabetic ulcer over the past week. He's applying Kerasal to the periwound callus as recommended and has limited his walking considerably, in addition to wearing an offloading shoe, to minimize callus formation. 07/08/16 Seen by Mitch Cota PA-C. The patient reports no increase in pain or drainage from his ulcer, though he does report nausea and vomiting. After further review, it appears that his PPI prescription has run out and he stopped it abruptly. He has not had associated fever, chills or lower GI symptoms. His blood sugars have reportedly been above 150 this week. The patient reports that he still has problems with callous formation on his feet and will be seeing podiatry. 07/04/16. Seen by Dr. Howe. The patient does not report significant drainage associated with the chronic left plantar foot diabetic ulcer since his last visit. He does report significant nausea and vomiting over the past week however but does not report fever, cough, or other specific symptoms and feels the nausea has started to improve as of yesterday. He states his blood sugars have been well controlled with most below 150 and he's on Augmentin for the recent MSSA and Strep positive wound culture. He's also been applying Kerasal to the periwound callus as recommended and has been limited in his walking the past week due to illness. 06/23/16 Seeb by Mitch Cota PA-C. The patient reports that he believes he has an infection in his foot because his dog has been sniffing and licking his open ulcer. He believes his dog has a nose for infection. He reports a continuous, strong, foul odor from his left plantar foot ulcer for the past 3 days with an associated increase in drainage. In addition he has not been offloading his foot as instructed and is going barefoot at home. 06/16/16 Seen by Mitch Cota PA-C. The patient reports that he is walking barefoot in the house and only wears shoes outside the house. His left foot diabetic ulcer drainage has been stable. 06/02/16 Seen by Mitch Cota PA-C. The patient reports that he is due to have a new orthotic fitted for his deformed left foot to further offload his chronic left foot ulcer. He reports stable drainage from this ulcer. 05/27/16 Seen by Mitch Cota PA-C. The patient reports that he now has a new wound near his chronic left plantar foot diabetic ulcer. The new wound began spontaneously and was noted today. His chronic ulcer has had stable drainage. 05/19/16. Seen by Dr. Howe. The patient does not report significant drainage associated with the chronic left plant foot diabetic ulcer over the past week and he states his blood sugars are well controlled with most below 150. 05/12/16. Seen by Dr. Howe. The patient reports some new pain along the right foot surgical scar but no swelling or drainage from the site. He does not recall injuring the foot and feels he may have been more active over the past week. He does not report significant or drainage associated with the left plantar foot diabetic ulcer and states he's not been able to check his blood sugars due to the fact he ran out of glucometer strips this past week. His blood sugar today is 280. 04/11/16. Seen by Dr. Howe. The patient does not report pain or drainage associated with the chronic right lateral foot diabetic ulcer of the past week. He states his blood sugars are consistently below 150 and he is wearing his offloading shoe is recommended. 04/04/16. Seen by Dr. Howe. 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 He states his blood sugars are mostly below 150 and he's offloading using a surgical offloading shoe. He's now off of antibiotics and is here today with his granddaughter who's assisting with his care. 03/31/16 Seen by Mitch Cota PA-C. The patient has returned from [facility] where he had a 4th ray amputation performed to his right foot. He reports that he was supposed to have follow up appointments with surgery, cardiology and wound care but has not attended any of these appointments due to transportation difficulties. He is unsure of when his sutures are supposed to be removed. 02/28/16 Seen by Mitch Cota PA-C. The patient was seen at [place] [facility] and evaluated by Dr. Monae on an urgent basis as arranged by Dr. Howe at his last visit. The patient reports that Dr. Monae wanted to urgently take him to surgery but the patient would prefer to have Dr. Garcia do it and refused admission to the hospital. 02/21/[address] Howe. The patient does not report pain or significant drainage associated with the Alonzo grade 3 right lateral foot diabetic ulcer and he saw Dr. Garcia , podiatry, this morning who reportedly states she's not able to perform any additional debridement until his right leg vascular status is further evaluated. He had an arterial Doppler scheduled yesterday however both the patient and his son state they were unaware of the appointment. He started taking his Augmentin, which is treating the MSSA and Strep viridans culture from 02/15/16, following the last visit as recommended, states his blood sugars have been consistently below 150 over the past week, and he's offloading by wearing a surgical shoe and significantly limiting his walking. Of note, he's still on supplemental oxygen following his recent hospital discharge and gets short of breath on minimal exertion. Please see my note below from his last visit regarding details of the admission and amputation. 02/15/[address] Howe. The patient does not report pain associated with the right lateral foot diabetic ulcer. He was discharged 4 days ago following a partial ray amputation of the 5th toe and MT due a progressive foot infection that he states occurred over about 2 days prior to being admitted to the hospital. His wound culture on arrival to the ER was polymicrobial and reported on Group C Strep. He was treated with IV Zosyn during the admission and prescribed Augmentin on discharge however he's not yet picked up the prescription. His blood sugars have been relatively well controlled with most below 150 since discharge. Of note, he also had a non-ST elevation NM post-operatively, acute on chronic renal failure with a Cr of 1.8 on discharge, and acute respiratory failure and continues on supplemental oxygen. 12/27/[address] Howe. The patient does not report drainage or pain associated with the chronic right plantar foot diabetic ulcer over the past week. He's not been applying Kerasal to the associated callus as recommended however he does not have diabetic shoes and a new AFO that he's been wearing. His blood sugars also remain relatively well controlled below 150 consistently. 12/06/[address] Howe. The patient does not report pain or significant drainage from the chronic right plantar foot diabetic ulcer. His blood sugars remain well controlled around 120 and he's now wearing his new diabetic shoes and offloading by limiting his walking significantly. He's also applying Kerasal daily to the right foot calluses as recommended. 11/29/[address] Howe. The patient does not report significant drainage from the chronic right plantar foot diabetic ulcer and he states his blood sugars remain well controlled below 150. He's also wearing his diabetic shoes now and limiting his walking to facilitate offloading. 11/23/[address] Howe. The patient reports moderate drainage but no pain associated with the chronic right plantar foot diabetic ulcer. He continues on doxycycline for a polymicrobial positive wound culture and he states his blood sugars remain well controlled with most below 120. 11/15/[address] Howe. The patient's wound culture from the last visit grew Enterobacter, Staph, and group G Strep however he's not yet picked up his prescription for doxycycline. He has at least moderate serosanquinous drainage on the dressing and states he's been a bit more active this past week as his son has been sick and unable to do the shopping. His blood sugar was also elevated yesterday near 200 but has been relatively well controlled prior to that. 11/08/15 Seen by Mitch Cota PA-C. The patient reports that his son is sick and he has been up on his feet taking care of him and has been unable to stay off of his feet. He has noted more drainage from his right plantar foot diabetic ulcer in the past few days. He also reports that his current shoes with inserts are making a large callous on his right heel and he doesn't feel that they offload his ulcer, so he has been trying to walk on the lateral edge of his right foot to offload his ulcer, and now is having lateral right foot pain as a result. 11/01/[address] Howe. The patient admits to being more active over the past two weeks but states there's only been very minimal drainage from the right plantar foot diabetic ulcer. His blood sugars also remain well controlled below 150 consistently. 10/18/[address] Howe. The patient does not report drainage from the right foot plantar diabetic ulcer however he states he has been more active the past week in terms of walking. His blood sugars also remain well controlled below 150. 10/11/[address] Howe. The patient does not report pain or drainage associated with the right plantar foot nor heel diabetic ulcers. 10/04/[address] Howe. The patient does not report drainage from the right plantar foot diabetic ulcer and he continues to use Kerasal daily for the significant right heel callus. His blood sugars are also well controlled below 120 consistently. 09/27/[address] Howe. The patient reports only minimal drainage from the right plantar foot diabetic ulcer and states his blood sugars continue to improve with most between 120 and 180. He's also applying Kerasal to the bilateral foot calluses daily as we've requested. 09/19/[address] Howe. The patient reports significantly decreased drainage from the right plantar foot diabetic ulcer and he'll complete his course of levofloxacin today that treating the polymicrobial wound culture from 09/04/15. His blood sugars are also much better controlled over the past week with most around 150 and very few over 200. 09/12/[address] Howe. The patient continues to report significant drainage from the right plantar diabetic foot ulcer and his wound culture from 09/04/15 grew Strep , Providencia, and Neisseria species. He's now on levofloxacin and does not report adverse effects. He's also no longer experiencing severe hypoglycemic episodes and is working closely with is PCP on adjusting his insulin regimen. His blood sugars due tend to remain over 200 however. 09/07/[address] Howe. The patient continues to report blood sugars as low as the 40's since our visit last week. Regarding his foot ulcers, he reports continued foul smelling drainage from the right foot diabetic ulcer but none from right heel or left foot diabetic ulcer. His blood sugars also may be as high as 300 and he states he's compliant with his diabetes medication regimen and will require as much as 30-40 units of short acting insulin on occasion. He does not report pain in the feet nor fevers or other systemic symptoms. 08/31/[address] Howe. The patient is new to our clinic. On arrival he was not feeling well and was tremulous. The MA checked his blood sugar and is registered 34 which is the lowest the glucometer would read. I spoke with him and he reported feeling very unwell at which time he was urgently transferred to the ER. Of note, he was in the clinic to review bilateral diabetic foot ulcers. He'd also recently lost a son and has been very upset the past week according to staff. Past Medical History This information was obtained from the patient Patient has a medical history of: Chronic Obstructive Pulmonary Disease (COPD) Type II Diabetes (A1c 7.4 on 11/12/2015) PAD Peripheral neuropathy Hypoglycemia CVA Diabetic foot ulcer (Right plantar 1st MTPJ, Alonzo grade II) Coronary Artery Disease (CAD) (s/p NM during admission on 02/04/2016) Lumbar strain CHF Hyperlipidemia CKD stage 3 Gout Diabetic foot ulcer - 02/04/2016 (right lateral foot s/p partial ray amputation; Alonzo grade 3; MSSA and Strep viridans cultured) Complaints and Symptoms This information was obtained from the patient Patient complains of: General Notes: I have reviewed and concur with the Review of Systems and Past Family Social History documents completed by the clinician, I have reviewed and concur with the Wound Assessment document completed by the clinician Cardiovascular (Central): Dyspnea on Exertion Ear/Nose/Mouth/Throat: Hearing Loss / Aid Integumentary (Hair/Skin/Nails): Open Sore Musculoskeletal: Assistive Devices, Deformities Neurological: Loss of Protective Sensation Prior Wound History: Drainage, Erythema, Malodor Patient denies complaints or symptoms related to: Cardiovascular (Central/Peripheral): Intermittent Claudication, Lower extremity (leg) resting pain Constitutional Symptoms (General Health): Chills, Fever Gastrointestinal (GI): Nausea / Vomiting, Stomach/abdominal pain Hematologic/Lymphatic: Bleeding / Clotting Disorders, Bleeding Tendency Musculoskeletal: Muscle Weakness Prior Wound History: Bleeding, Pain Psychiatric: Anxiety, Memory Loss Respiratory: Oxygen Use, Shortness of Breath Additional Information Does patient have a history of Cancer? Yes? Complete all questions.: Yes Location of Cancer: Skin cancer Patient underwent Radiation Treatment? If yes, answer question below.: No OBJECTIVE Constitutional Vital signs reviewed and noted. Well developed. Alert. Clean appearing.. Height/ Length: 72 in (182.88 cm), Weight: 224.3 lbs (101.95 kgs), BMI: 30.4, Temperature: 97.5 ?F ( 36.39 ?C), Pulse: 56 bpm, Respiratory Rate: 18 breaths/min, Blood Pressure: 130/64 mmHg, Capillary Blood Glucose: 176 mg/dl, Pulse Oximetry: 95 %. Vital Signs Notes: Glucose per patient Respiratory: No respiratory distress. Even respirations and without use of accessory muscles.. Cardiovascular: Affected extremity exhibits no peripheral edema or cyanosis, is warm, and is well perfused. Capillary refill is less than 2 seconds. Musculoskeletal: Right lateral foot partial amputation. Integumentary (Hair, Skin) No periwound erythema, warmth, or significant drainage. No periwound rashes appreciated or noted otherwise.. Refer to appropriate clinician wound documentation for this visit; right and left foot ulcers extend to subcut with bases partially covered with pink granulation, remainder fibrin and slough; right ulcer much smaller and less deep than on previous review. Wound #11 Left Metatarsal head first is a chronic Alonzo Grade 2 Diabetic Ulcer and has received a status of Not Healed. Subsequent wound encounter measurements are 1.3cm length x 1cm width x 0.3cm depth, with an area of 1.3 sq cm and a volume of 0.39 cubic cm. Hypergranulation was noted. No tunneling has been noted. No sinus tract has been noted. No undermining has been noted. There is a moderate amount of serosanguineous drainage noted which has no odor. The patient reports no wound pain due to the wound being insensate. The wound margin is callus. Wound bed has No epithelialization, No eschar, Yes slough, Yes bright red, pink, spongy granulation. The periwound skin color is normal. The periwound skin exhibited: Callus, Moist. The periwound skin did not exhibit: Brawny Induration, Edema, Excoriation, Induration, Crepitus, Fluctuance, Friable, Rash, Dry/Scaly, Maceration. The temperature of the periwound skin is WNL. Periwound skin does not exhibit signs or symptoms of infection. Local Pulse is Palpable. Wound #12 Right, Plantar Metatarsal head first is a Alonzo Grade 2 Diabetic Ulcer and has received a status of Not Healed. Subsequent wound encounter measurements are 1.1cm length x 0.6cm width x 0.1cm depth, with an area of 0.66 sq cm and a volume of 0.066 cubic cm. No tunneling has been noted. No sinus tract has been noted. No undermining has been noted. There is a moderate amount of serosanguineous drainage noted which has no odor. The patient reports no wound pain due to the wound being insensate. The wound margin is callus. Wound bed has Yes epithelialization, No eschar, Yes slough, Yes pink, firm granulation. The periwound skin exhibited: Callus, Moist. The periwound skin did not exhibit : Brawny Induration, Edema, Excoriation, Induration, Crepitus, Fluctuance, Friable, Rash , Dry/Scaly, Maceration, Atrophie Yola, Cyanosis, Ecchymosis, Erythema, Hemosiderosis, Pallor, Rubor. The temperature of the periwound skin is WNL. Periwound skin does not exhibit signs or symptoms of infection. Local Pulse is Normal. Neurological: Cranial nerves grossly intact with symmetric function normal by informal observation.. 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 A skin/ subcutaneous tissue level surgical debridement with a total area debrided of 1.3 sq cm was performed by Nando Howe MD. Subcutaneous was removed along with devitalized tissue: callus. The following instrument(s) were used: curette. Pain control was achieved using 4% Lido. A time out was conducted prior to the start of the procedure. A minimal amount of bleeding was controlled with n/a. The procedure was tolerated well with a pain level of 0 throughout and a pain level of 0 following the procedure. Post Debridement Measurements: 1.3cm length x 1cm width x 0.4cm depth; with an area of 1.3 sq cm and a volume of 0.52 cubic cm; Wound #12 Wound #12 (Diabetic Ulcer) is located on the right, plantar metatarsal head first. A skin/subcutaneous tissue level surgical debridement with a total area debrided of 0.66 sq cm was performed by Nando Howe MD. Subcutaneous was removed along with devitalized tissue: callus and slough. The following instrument(s) were used: curette. Pain control was achieved using 4% Lido. A time out was conducted prior to the start of the procedure. A minimal amount of bleeding was controlled with n/a. The procedure was tolerated well with a pain level of 0 throughout and a pain level of 0 following the procedure. Post Debridement Measurements: 1.1cm length x 0.6cm width x 0.2cm depth; with an area of 0.66 sq cm and a volume of 0.132 cubic cm; Wound #12 (Diabetic Ulcer) is located on the right, plantar metatarsal head first. A Total Contact Cast procedure was performed by Nando Howe MD. General Notes: TCC applied to right leg as per protocol. Additional Information Muscle fascia or bone removed and sent to pathology?: No Muscle fascia or bone removed and sent to pathology?: No PLAN Wound Orders: Wound #11 Left Metatarsal head first Anesthetic Topical Xylocaine to wound bed. - In clinic only. Cleanser Cleanse Wound: - Normal saline and gauze, may use distilled water at home. May Shower. - Keep covered in shower with cast protector or plastic bag. Topical Treatments Antibiotic/Antimicrobial Ointment/Cream. - Gentamicin ointment. Dressings Cover and secure with: - Foam and hypafix tape. Change Dressing: - Every other day. Wound #12 Right, Plantar Metatarsal head first Anesthetic Topical Xylocaine to wound bed. - In clinic only. Cleanser Cleanse Wound: - Normal saline and gauze, may use distilled water at home. May Shower. - Keep covered in shower with cast protector or plastic bag. Dressings Primary dressing: - TCC foam secured with paper tape. Cover and secure with: - Cotton cast padding wrapped around foot and ankle, and foam taped to pacheco to protect himanshu prominences. Off-Loading Total Contact Cast - Applied to right leg. Additional Orders: Off-Loading Keep weight off: - Both feet as much as possible. Follow-Up Appointments Return Appointment: - - One week for TCC. Other information: If you develop fever, chills, increased pain, drainage, redness or swelling please call our office. If after hours, respond to the ER. Should you experience any significant changes in your wound(s) or have any questions regarding your home care instructions please contact the wound center @ [phone]. If after hours, contact your primary care physician or go to the hospital emergency room. Scribing Attestation I attest, as the nurse, that I scribed these orders for the physician. I've reviewed the clinician's documentation and agree with the evaluation and plan as written. In addition the patient's ulcers demonstrate evidence of non-viable devitalized tissue and they will continue to benefit from sharp debridement to help promote granulation and expedite healing. Also, the right DFU continues to improve so I've placed another TCC today. Electronic Signature(s) Signed By: Date: Nando Howe MD 05/26/2018 06:50:35 Entered By: Nando Howe on 05/26/2018 06:40:11
== END ==
PROVIDERS: Family Provider Physician Assistant Medical; PCP Physician Assistant Medical; Visit Provider Internal Medicine
DX: E11.621 Type 2 diabetes mellitus with foot ulcer (principal); L97.522 Non-pressure chronic ulcer of other part of left foot with fat layer exposed; L97.512 Non-pressure chronic ulcer of other part of right foot with fat layer exposed
CPT/HCPCS: 11042

== ENCOUNTER → 2018-06-01 08:57 | Outpatient (CLI) | payer MEDICARE, SELFPAY ==
--- NOTE | 2018-06-01 | OV.WND_ITS ---
Progress Note Details Patient Name: Nick Drake Patient Number: [id number] PatientPatientDate: 06/01/2018 Clinician: Lacy Malone Physician / [employer] Al[employer] Superintendent: Nando Howe SUBJECTIVE Chief Complaint This information was obtained from the patient Diabetic ulcers to right and left foot. Allergies Minipress (Severity: Severe, Reaction: violent behavior), Vicodin (Severity: Mild, Reaction: itching), nortriptyline (Severity: Moderate), Avandia (Severity: Moderate) HPI This information was obtained from the patient 06/01/18. Seen by Dr. Howe. The patient does not report any complications regarding the right foot total contact cast that was placed 7 days ago and the staff do not report increased drainage or other acute issues regarding the bilateral plantar foot diabetic ulcers. 05/25/18. Seen by Dr. Howe. The patient does not report any complications regarding the right foot total contact cast that was placed 7 days ago and the staff do not report increased drainage or other acute issues regarding the bilateral plantar foot diabetic ulcers. 05/18/18. Seen by Dr. Howe. The patient does not report increased drainage associated with the bilateral plantar 1st MTPJ diabetic ulcers since his last visit. He admits thought to not covering the ulcers while he showers despite our recommendation to wear a cast protector and prevent them from getting wet. 05/13/18. Seen by Dr. Howe. The patient does not report any complications regarding the right foot total contact cast that was placed 7 days ago and the staff do not report increased drainage or other acute issues regarding the bilateral plantar foot diabetic ulcers. There is a possible blister noted however over the posterior right heel. 05/06/18. Seen by Dr. Howe. The patient does not report any complications regarding the right foot total contact cast that was placed 2 days ago and the staff do not report increased drainage or other acute issues regarding the bilateral plantar foot diabetic ulcers. 05/03/18. Seen by Dr. Howe. The patient did not make is appointments last week due to a GI issue. He does not report increased drainage associated with the bilateral plantar 1st MTPJ diabetic ulcers since his last visit however and we're planning on placing a TCC to better offload the right foot ulcer today. Of note, he has a partial right lateral foot amputation that's contributing to heavy periulcer callus formation and the refractory nature of the ulcer. 04/23/18. Seen by Dr. Howe. The patient does not report increased drainage associated with the bilateral plantar 1st MTPJ diabetic ulcers since his last visit. He reports being sick over the past week with nausea and vomiting which has mostly resolved as of today. 04/20/18. Seen by Dr. Howe. The patient does not report increased drainage associated with the bilateral plantar 1st MTPJ diabetic ulcers since his last visit. Also, his total contact cast was ordered but is not available today. It's to be placed on the right lower leg to better facilitate offloading in light of his partial right lateral foot amputation that's contributing significantly to callus formation and the refractory nature of the right foot ulcer. He also missed his appointment with cardiology on 04/07 to discuss intervention for his bilateral lower leg PAD which is also complicating his wound healing. 04/13/18. Seen by Dr. Howe. The patient does not report increased drainage associated with the bilateral plantar 1st MTPJ diabetic ulcers since his last visit. He states he's wearing his right lower leg HUSLIA boot as recommended which is offloading the ulcer and addressing the partial right foot amputation which contributes considerably to recurrent and heavy callus formation. 04/09/18. Seen by Dr. Howe. The patient does not report increased drainage associated with the bilateral plantar 1st MTPJ diabetic ulcers since his last visit. His blood sugar is 226 today and he admits to eating some candy yesterday. 04/06/18. Seen by Dr. Howe. The patient does not report increased drainage associated with the bilateral plantar 1st MTPJ diabetic ulcers since his last visit. His bilateral arterial Doppler performed in February showed possible clinically significant PAD with a high grade stenosis of the right SFA and possible left common femoral inflow obstruction and bilateral lower leg with monophasic flow noted. He does not report rest pain nor claudication however he' s very limited in his mobility due to the plantar foot diabetic ulcers. 04/02/18. Seen by Dr. Howe. The patient continues to wear his HUSLIA boot to offload the right foot 1st MTPJ diabetic ulcer and address the significant deformity associated with the partial lateral foot amputation and he does not report increased drainage associated with this ulcer nor the left plantar foot diabetic ulcer since his last. His wound culture from the last visit grew Staph and group G Strep and he's not currently on antibiotics. 03/30/18. Seen by Dr. Howe. The patient missed his last two appointments and states over the 24 of March he was wearing socks on his deck and noticed bleeding from the bilateral diabetic foot ulcers. His blood sugars are over 400 today and he's run our of insulin and glucose strips. He does not report pain associated with the ulcers and notes he's not wearing his HUSLIA boot on the right foot at all times as recommended. He has a right partial foot amputation and Charcot deformity of both feet. 03/22/18. Seen by Dr. Howe. The patient continues to wear his HUSLIA boot to offload the right foot 1st MTPJ diabetic ulcer and address the significant deformity associated with the partial lateral foot amputation and he does not report increased drainage associated with this ulcer nor the left plantar foot diabetic ulcer since his last. 03/15/18. Seen by Mitch Cota PA-C. The patient reports that he is compliant with his HUSLIA boot but notes increased bleeding and drainage seen in the boot. 03/11/18. Seen by Mitch Cota PA-C. The patient reports stable drainage from his diabetic foot ulcers. His blood sugars continue to be above 150 this week. 03/04/18. Seen by Dr. Howe. The patient continues to wear his HUSLIA boot to offload the right foot 1st MTPJ diabetic ulcer and address the significant deformity associated with the partial lateral foot amputation and he does not report increased drainage associated with this ulcer nor the left plantar foot diabetic ulcer since his last. He recently completed a course of doxycycline to treat a group G Strep positive culture and is applying iodosorb to the ulcers to help manage the persistent drainage. 03/01/18. Seen by Dr. Howe. The patient continues to wear his HUSLIA boot to offload the right foot 1st MTPJ diabetic ulcer and address the significant deformity associated with the partial lateral foot amputation. He does not report significant drainage associated with this ulcer nor the left plantar foot diabetic ulcer since his last. 02/25/18. Seen by Dr. Howe. The patient will complete his course of doxycycline today that's treating the Staph and group G Strep positive culture taken from the right foot diabetic ulcer. He does not report adverse side effects and nor significant drainage from the ulcer or the left plantar foot diabetic ulcer. 02/22/18. Seen by Dr. Howe. The patient is now on doxycycline for the Staph and group G Strep positive culture taken from the right foot diabetic ulcer last week. He notes some bloody drainage from this site on his dressing today but feels this ulcer and the left foot diabetic ulcer have improved over the past few week. He's offloading the right foot which has a partial lateral amputation using his HUSLIA boot as recommended however he's not using a frame walker. He does not report adverse side effects of the antibiotics nor other acute issues today. 02/18/18. Seen by Dr. Howe. The staff report increased drainage associated with both plantar foot 1st MTPJ diabetic ulcers and the patient reports a malodor from the dressings over the past week. He does not report fevers, feeling unwell, or pain in the feet but states his blood sugars have been a bit elevated in the 180s. He's also wearing his HUSLIA boot as recommended on the right foot but states he does not have enough room in his house to use a knee scooter and does not use his frame walker. 02/11/18. Seen by Dr. Howe. The patient continues to wear his HUSLIA boot to offload the right foot 1st MTPJ diabetic ulcer and address the significant deformity associated with the partial lateral foot amputation. He does not report significant drainage associated with this ulcer nor the left plantar foot diabetic ulcer since his last visit however the nurse states the mole skin dressing was applied inappropriately over the left foot ulcer and was overlying the ulcer itself and soaked with drainage. 02/04/18. Seen by Dr. Howe. The patient continues to wear his HUSLIA boot to offload the right foot 1st MTPJ diabetic ulcer and address the significant deformity associated with the partial lateral foot amputation. He does not report significant drainage associated with this ulcer nor the left plantar foot diabetic ulcer since his last visit. 01/28/2018. Seen by Dr. Howe. The patient is now wearing his HUSLIA boot to offload the right foot 1st MTPJ diabetic ulcer and address the significant deformity associated with the partial lateral foot amputation. He does not report significant drainage associated with this ulcer nor the left plantar foot diabetic ulcer since his last visit. 01/26/18. Seen by Dr. Howe. The patient states he has been without his insulin for over a week which is likely the cause of his blood sugars being around 400 over the past few visits. He has also not contacted his orthotics provider regarding the offloading HUSLIA boot to wear on the right foot noting his significant deformity caused by the partial lateral foot amputation. He has not report increased drainage or other acute changes regarding his bilateral diabetic foot ulcers and will complete his course of doxycycline its treated the recent MSSA positive culture tomorrow. He also reports nausea and one episode of emesis earlier today but not other acute issues. 01/21/2018. Seen by Dr. Howe. The patient arrived today with his right foot dressing upside down. His blood sugars are also over 400. The patient does not report increased drainage associated with the right or left diabetic foot ulcers however states his neuropathic pain has been significant over the past 2 days. He also is going to fruit picker his HUSLIA boot today to help facilitate offloading of the right foot diabetic ulcer noted in he also has a partial lateral amputation on his foot that is contributed significantly 2. Ulcer callus formation. He also continues on doxycycline for he recent MSSA positive wound culture. 01/18/2018. Seen by Dr. Howe. The patient's wound culture from the left foot diabetic ulcer grew MSSA resistant to gentamicin. He is not currently on oral antibiotics and does not report increased drainage from either left right foot diabetic ulcers and is still waiting for his HUSLIA boot to be available to help facilitate better offloading of the right foot noting his partial lateral right foot amputation and severe Charcot deformity. 01/14/18. Seen by Dr. Howe. The patient continues to report moderate drainage from the right and left diabetic foot ulcers over the past few days and he's seen his surgical technology instructor who's ordered a HUSLIA boot for the right foot which should be available next week. He has severe bilateral Charcot deformities and partial right lateral foot amputation that contributes to the refractory nature of the ulcers and very heavy callus formation. 01/12/18. Seen by Dr. Howe. The patient reports moderate drainage from the right and left diabetic foot ulcers and he's seen his surgical technology instructor who's ordered a HUSLIA boot for the right foot. He has bilateral partial lateral foot amputations which have resulted in refractory calluses of the bilateral plantar MTPJ's and associated DFU's. His blood have been well controlled and his recent hypoglycemic episodes have resolved. 01/07/18. Seen by Dr. Howe. The patient missed his last 2 appointments due to a GI illness last week and she reports some pain in the lateral aspect of the right forefoot but no increased drainage, swelling, or other acute changes of the diabetic foot ulcer. He also does not report any acute issues regarding the left diabetic foot ulcer. Of note, he has significant deformities of both feet due to partial amputations which have each contributed significantly to severe callus formation and the refractory nature of the ulcers. 01/01/18. Seen by Dr. Howe. The patient continues on clindamycin for the chronic right diabetic foot ulcer infection and it is not reported adverse side effects. He also does not report significant drainage associated with either left or right diabetic foot ulcer since his last visit. 12/28/17. Seen by Dr. Howe. The patient does not report increased drainage associated with either right or left foot diabetic ulcers since his last visit. He continues on clindamycin without reporting adverse side effects to treat the chronic right ulcer infection and his blood sugars are well controlled. Of note, he has been attending clinic twice weekly to optimize management of his recurrent and severe apollo-ulcer calluses that are in part due to his severe Charcot deformities and bilateral partial foot amputations. 12/21/17. Seen by Dr. Howe. The patient reports some drainage associated with the right foot diabetic ulcer since his last visit but none associated with the left foot diabetic ulcer. He completed his course of doxycycline today is treating the recent MSSA positive wound culture and is reported adverse side effects, fevers, feeling unwell. He states his blood sugars continue to be well controlled below 180. 12/15/17. Cinthia Howe. The patient's wound culture from the left plantar foot diabetic ulcer his last visit grew MSSA resistant to gentamicin. He does not report increased drainage or pain from either diabetic foot ulcers since his last visit. 12/10/17. Seen by REN Olea. The patient does not report increased drainage from his bilateral diabetic foot ulcers but does report continued odor. Notes a large amount of callous growth. Wound culture from last week showed MSSA and Diphtheroids. He has been applying topical gentamicin. 12/03/17. Seen by Mitch Cota PA-C. The patient reports increased drainage and odor from his bilateral diabetic foot ulcers. He continues to have elevated blood sugars. 11/26/17. Seen by Mitch Cota PA-C. The patient reports that he has decreased his usage of marijuana which he uses for recreation and to treat his neuropathy. He has not had a ground level fall since decreasing his usage. His blood sugars remain >150 and his ulcers' drainage is stable. 11/20/17. Seen by Mitch Cota PA-C. The patient reports no increase in his ulcer drainage from his bilateral lower extremity diabetic ulcers. He has not scheduled an appointment to see his PCP to address his consistently high blood sugars. 11/13/17. Seen by Mitch Cota PA-C. The patient reports stable drainage from his diabetic foot ulcers and continued difficulty keeping his blood sugars below 150. He also reports not wearing his diabetic shoes when at home. 11/09/17. Seen by Mitch Cota PA-C. The patient reports high blood sugars again this week. He does not report increased drainage though he notes callous formation continues to happen quickly between visits. 11/06/17. Seen by Dr. Howe. The patient does not report increased drainage associated with the chronic bilateral diabetic foot ulcers since the last visit. 11/02/17. Seen by Mitch Cota PA-C. The patient reports no increased drainage from his bilateral diabetic foot ulcers. He is not surprised that his blood sugar is low this morning as he did not eat dinner yesterday or breakfast today, citing mild GI discomfort. 10/30/17. Seen by Dr. Howe. The patient missed a few appointments recently due to our facility power outage however he does not report increased drainage or other acute issues regarding his bilateral first MTPJ plantar foot diabetic ulcers. 10/23/17. Seen by Mitch Cota PA-C. The patient reports that he did not take his insulin, or eat this morning. Drainage from his diabetic foot ulcers has been stable. 10/15/17. Seen by Mitch Cota PA-C. The patient reports high blood sugars this week and stable drainage from his foot ulcers. 10/13/17. Seen by Dr. Howe. The patient does not report increased drainage associated with the bilateral plantar foot diabetic ulcers since his last visit. 10/01/17. Seen by Dr. Howe. The patient does not report increased drainage associated with either left or right plantar foot diabetic ulcers since his last visit. 10/01/17. Seen by Dr. Howe. The patient does not report increased drainage associated with either left or right plantar foot diabetic ulcers since his last visit. 09/28/17. Seen by Dr. Howe. The patient does not report increased drainage associated with either left or right plantar foot diabetic ulcers since his last visit. He has been offloading as recommended as well. 09/24/17. Seen by Dr. Howe. The patient reports some increased drainage associated with the right chronic diabetic foot ulcer but none with the left chronic diabetic foot ulcer since his last visit. His blood sugars have been well controlled and he does not report pain in either feet or fevers or feeling unwell. He had been seen twice weekly due to the recent deterioration of the right foot ulcer and need for frequent debridement of the periulcer callus. 09/16/17. Seen by Dr. Howe. The patient does not report significant drainage associated with the bilateral plantar foot diabetic ulcers since last visit and his blood sugars are well controlled over the past week. 09/11/17. Seen by Dr. Howe. The patient states that the right foot diabetic ulcer bled significantly earlier this week when he got out of the shower. He had his INR checked yesterday and it was 3.5. He does not report increased drainage otherwise from either the left or right foot diabetic ulcers since his last visit. He's been seen as twice weekly for the past 2 weeks due to the very heavy accumulation of callus associated with the right foot ulcer. 09/08/17. Seen by Dr. Howe. The patient does not report increased drainage associated with bilateral foot diabetic ulcers since his last visit. 09/04/17. Seen by Dr. Howe. The patient does not report significant drainage associated with the bilateral plantar foot diabetic ulcers since last visit and his blood sugars are well controlled over the past week. 08/31/17. Seen by Dr. Howe. The patient does not report increased drainage associated with the bilateral plantar foot diabetic ulcers since his last visit and he continues on doxycycline for the positive right foot ulcer wound culture. His blood sugars have been well- controlled for the past week and he has had no further episodes of hypoglycemia. 08/26/17. Seen by Dr. Howe. The patient is now on doxycycline resistant MSSA positive wound culture taken from his right diabetic foot ulcer and does not report other side effects. He has picked up his new diabetic shoes and is wearing them as recommended. His blood sugar today is 58 in clinic and he has recently had his short-acting insulin increased by his primary care provider due to frequent episodes of hyperglycemia. He is scheduled to see his PCP again tomorrow to discuss the changes. 08/18/17. Seen by Mitch Cota PA-C. The patient reports a foul odor from his bilateral foot ulcers. He reports that he is feeling much better after an ER trip for hypoxia and his recent O2 saturation readings have been 100%. 08/06/17. Seen by Dr. Howe. The patient reports feeling unwell along with progressive shortness of breath while at rest over the past week. He says he had a low- grade fever at home today and staff report is O2 sats in low 90s upon arrival. He has a history of COPD also with possible admission for pneumonia within the past year. He is here for review of chronic diabetic foot ulcers that have been relatively stable for the past few weeks. 07/28/17. Seen by Mitch Cota PA-C. The patient reports increased drainage and bleeding from his diabetic foot ulcers. 07/20/17. Seen by Mitch Cota PA-C. The patient reports no increase in ulcer drainage since his last evaluation. 07/16/17. Seen by Mitch Cota PA-C. The patient has recently been in hospital where he had a NON-STEMI. He reports a reduction in drainage and wound odor after starting Augmentin. 07/01/17. Seen by Dr. Howe. The patient does not report significant drainage associated with the chronic bilateral plantar foot diabetic ulcers since his last visit. He will be picking up his new diabetic shoes today noting his partial right lateral foot amputation and multiple bilateral toe amputations plus Charcot deformity of both feet are contributing significantly to the recurrent heavy callus formation in the apollo-ulcer areas. He also states that he has not been covering his feet when he is in the shower despite our recommendation to do so. 06/19/17. Seen by Dr. Howe. The patient does not report significant drainage associated with the chronic bilateral plantar MTPJ diabetic ulcers since his last visit. Of note , the patient's blood sugar is 42 in clinic and was 35 earlier this morning. He's mildly symptomatic and is with his son who states the patient's food intake has been a bit less than usual due to limited funds at the end of the month. The patient also admits to trying to keep his blood sugars below 140 at all times and has had the problem of hypoglycemia in our clinic a number of times over the past year. 06/12/17. Seen by Dr. Howe. The patient does not report significant drainage associated with the chronic bilateral plantar MTPJ diabetic ulcers since his last visit. 06/05/17. Seen by Dr. Howe. The patient does not report significant drainage associated with the chronic bilateral plantar MTPJ diabetic ulcers since his last visit. He continues on Augmentin based on the recent wound culture and does not report adverse side effects. He also was seen by Dr. Garcia and his new diabetic shoes have been ordered noting his significant history of right lateral foot amputation and multiple toe amputations plus bilateral Charcot deformities. 05/29/17. Seen by Dr. Howe. The patient's wound culture from 2 days ago of a new right foot diabetic ulcer grew Streptococcus as well as Staph. He does not report increased drainage from this ulcer nor the chronic left foot diabetic ulcer. He is also not yet been seen by podiatry although we did send the referral over a couple weeks ago. His blood sugars continue to be well controlled and of note he has had extensive amputations of both the lateral aspect of the right foot as well as toes on both feet which has contributed significantly to recurrent callus and diabetic ulcer formation. 05/27/17. Seen by Mitch Cota PA-C. The patient reports a new ulcer to his right great toe that he believes has been continuously present for about a week. He denies any trauma to the area though states he may have been walking more lately. He is insensate and notes no pain, though he has seen purulent drainage in the area and notes a foul odor. 05/12/17. Seen by Dr. Howe. The patient does not report significant drainage associated with the chronic left plantar foot diabetic ulcer and he notes that heavy callus again has formed on the right plantar foot surface at the site of his recently healed diabetic ulcer. He has severe bilateral Charcot deformities along with multiple toe amputations that are contributing significantly to health information and the refractory and recurrent nature of his diabetic foot ulcers. He's also asked for us to address his toe nails today as it's been weeks since they've been trimmed. 05/05/17. Seen by Dr. Howe. The patient presents today with low blood sugars in the 40's and states he is feeling unwell in the waiting room. Upon my review he is lucid and eating and his blood sugars have increased into the 50s. He does not report any new problems regarding his chronic left foot diabetic ulcer and states that he has not discussed his hypoglycemia with his primary care provider yet despite having a number of episodes throughout the month. 04/28/17. Seen by Dr. Howe. The patient reports recurrence of his left plantar foot diabetic ulcer over the past week along with some new drainage that's quite malodorous. He does not report pain in the foot nor fevers nor any acute issues regarding his right lateral foot diabetic ulcer. He states his blood sugars continue to be well controlled with most below 120. 04/21/17. Seen by Dr. Howe. The patient does not report pain or drainage associated with the chronic right foot diabetic ulcers since his last visit. 04/14/17. Seen by Dr. Howe. The patient does not report pain or drainage associated with the chronic right foot diabetic ulcers since his last visit. His work diabetic shoe as recommended noting he is a partial right foot and right second toe amputations along with a significant Charcot deformity. 04/07/17. Seen by Dr. Howe. The patient does not report significant drainage or pain associated with the chronic right lower leg diabetic ulcers since his last visit. He snoring softly and she was recommended and reports his blood sugars have been well controlled. Of note, his significant deformity of the right foot including partial lateral amputation as well as second toe amputation and a significant Charcot deformity. 04/02/17. Seen by Dr. Howe. The patient reports that a coin accidentally fell into his right lower leg total contact cast a couple days ago. The staff found a johnson upon removing the cast as well as a new ulcer over the lateral aspect of the right foot. The patient does not report pain at the site nor does staff report significant drainage associated with new ulcer nor the chronic right plantar foot diabetic ulcer. The patient's blood sugars continue to be well controlled and he has no other acute complaints at this time. 03/28/17. Seen by Mitch Cota PA-C. The patient's recent wound culture demonstrated no growth. He has not noted increased drainage since his last evaluation. 03/23/17. Seen by Mitch Cota PA-C. The patient reports no increase in right foot ulcer drainage since his last evaluation. In addition his wound culture demonstrated no growth. 03/17/17. Seen by Dr. Howe. The patient does not report increased drainage associated with the chronic right first MTPJ diabetic ulcer.He completed his course of antibiotics that was treating the recent positive wound culture and does not report adverse side effects. He continues offload with a surgical shoe as well. 03/09/17. Seen by Dr. Howe. The patient does not report pain or significant drainage associated with the recurrent right foot diabetic ulcer. His culture of the ulcer was positive for a staph organism and Acinetobacter however he's not yet been started on antibiotics. He states his blood sugars continue to be well-controlled with most below 150. 03/02/17. Seen by Mitch Cota PA-C. The patient reports no improvement in drainage from his diabetic ulcer of the right foot. He has noted odor at times coming from the ulcer. 02/23/17. Seen by Mitch Cota PA-C. The patient reports no increase in drainage from his diabetic ulcer of the right foot. 02/09/17. Seen by Mitch Cota PA-C. The patient reports that he has just begun taking Bactrim for his infection of his right foot diabetic ulcer. He reports continued purulent drainage and odor. 02/02/17. Seen by Mitch Cota PA-C. The patient returns to our clinic with a new ulcer of his right first metatarsal head. He reportedly smacked his foot hard on the floor, creating this ulcer, in an attempt to stop an episode of neuropathy. 11/10/16. Seen by Mitch Cota PA-C. The patient returns for evaluation of his recently healed ulcer, fearing that it is open again. He has not seen liquid drainage but fears it is draining under the callous. 11/04/16. Seen by Mitch Cota PA-C. The patient does not report any difficulties with his TCC this week. 10/24/16. Seen by Dr. Howe. The patient does not report any problems regarding his TCC and staff do not repot significant drainage on the dressing overlying the left plantar foot diabetic ulcer. His blood sugars remain well controlled with most below 150. 10/20/16 Seen by Mitch Cota PA-C. The patient is here for placement of a TCC to offload his left plantar foot diabetic ulcer. He notes that the drainage from his ulcer has soaked through the TCC under-layers and almost soaked through the cast. 10/15/16. Seen by Dr. Howe. The patient tolerated his TCC with minimal discomfort noting mild pain in the left 1st toe. The staff do not report significant drainage associated with the chronic left plantar foot diabetic ulcer and he states his blood sugars are mostly below 150. He's now been placed in a TCC to optimize offloading needed to accommodate for the left foot Charcot deformity that's lead to recurrent heavy callus formation in the periulcer area. 10/13/16 Seen by Mitch Cota PA-C. The patient reports no increase in drainage from his left foot diabetic non-pressure ulcer since his last evaluation. 09/29/15 Seen by Mitch Cota PA-C. The patient reports no increase in drainage from his chronic left foot diabetic ulcer. He does voice frustration that his wound is taking so long to heal. 09/19/16. Seen by Dr. Howe. The patient does not report increased drainage or other acute issues regarding his chronic left plantar foot diabetic ulcer since his last visit. 09/12/16. Seen by Dr. Howe. The patient does not report significant drainage associated with the chronic left plantar foot diabetic ulcer over the past week. He's applying Kerasal to the periwound callus as recommended and has limited his walking considerably, in addition to wearing an offloading shoe, to minimize callus formation. His blood sugars also remain well controlled with most below 150 and he continues on Bactrim for an infection of the ulcer without reporting adverse side effects. 09/05/16. Seen by Dr. Howe. The patient returns to clinic with recurrent of his left plantar foot diabetic ulcer that he states reopened about 2 weeks ago. He was placed on Keflex by his PCP yesterday due to the appearance of the ulcer and significant drainage. He states his blood sugars are well controlled and he limits his walking to help facilitate offloading. 07/28/16. Seen by Dr. Howe. The patient does not report significant drainage associated with the chronic left plantar foot diabetic ulcer over the past week. He's applying Kerasal to the periwound callus as recommended and states his blood sugars are consistently below 150. He does report ongoing nausea for the past few weeks and states he's on 3 nausea medications but does not know what's causing it. He's working with his PCP on this problem. 07/15/16 Seen by Mitch Cota PA-C. The patient reports no fever chills or pain from his left foot diabetic ulcer since his last evaluation. 07/10/16. Seen by Dr. Howe. The patient does not report significant drainage associated with the chronic left plantar foot diabetic ulcer over the past week. He's applying Kerasal to the periwound callus as recommended and has limited his walking considerably, in addition to wearing an offloading shoe, to minimize callus formation. 07/08/16 Seen by Mitch Cota PA-C. The patient reports no increase in pain or drainage from his ulcer, though he does report nausea and vomiting. After further review, it appears that his PPI prescription has run out and he stopped it abruptly. He has not had associated fever, chills or lower GI symptoms. His blood sugars have reportedly been above 150 this week. The patient reports that he still has problems with callous formation on his feet and will be seeing podiatry. 07/04/16. Seen by Dr. Howe. The patient does not report significant drainage associated with the chronic left plantar foot diabetic ulcer since his last visit. He does report significant nausea and vomiting over the past week however but does not report fever, cough, or other specific symptoms and feels the nausea has started to improve as of yesterday. He states his blood sugars have been well controlled with most below 150 and he's on Augmentin for the recent MSSA and Strep positive wound culture. He's also been applying Kerasal to the periwound callus as recommended and has been limited in his walking the past week due to illness. 06/23/16 Seeb by Mitch Cota PA-C. The patient reports that he believes he has an infection in his foot because his dog has been sniffing and licking his open ulcer. He believes his dog has a nose for infection. He reports a continuous, strong, foul odor from his left plantar foot ulcer for the past 3 days with an associated increase in drainage. In addition he has not been offloading his foot as instructed and is going barefoot at home. 06/16/16 Seen by Mitch Cota PA-C. The patient reports that he is walking barefoot in the house and only wears shoes outside the house. His left foot diabetic ulcer drainage has been stable. 06/02/16 Seen by Mitch Cota PA-C. The patient reports that he is due to have a new orthotic fitted for his deformed left foot to further offload his chronic left foot ulcer. He reports stable drainage from this ulcer. 05/27/16 Seen by Mitch Cota PA-C. The patient reports that he now has a new wound near his chronic left plantar foot diabetic ulcer. The new wound began spontaneously and was noted today. His chronic ulcer has had stable drainage. 05/19/16. Seen by Dr. Howe. The patient does not report significant drainage associated with the chronic left plant foot diabetic ulcer over the past week and he states his blood sugars are well controlled with most below 150. 05/12/16. Seen by Dr. Howe. The patient reports some new pain along the right foot surgical scar but no swelling or drainage from the site. He does not recall injuring the foot and feels he may have been more active over the past week. He does not report significant or drainage associated with the left plantar foot diabetic ulcer and states he's not been able to check his blood sugars due to the fact he ran out of glucometer strips this past week. His blood sugar today is 280. 04/11/16. Seen by Dr. Howe. The patient does not report pain or drainage associated with the chronic right lateral foot diabetic ulcer of the past week. He states his blood sugars are consistently below 150 and he is wearing his offloading shoe is recommended. 04/04/16. Seen by Dr. Howe. 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 He states his blood sugars are mostly below 150 and he's offloading using a surgical offloading shoe. He's now off of antibiotics and is here today with his granddaughter who's assisting with his care. 03/31/16 Seen by Mitch Cota PA-C. The patient has returned from [facility] where he had a 4th ray amputation performed to his right foot. He reports that he was supposed to have follow up appointments with surgery, cardiology and wound care but has not attended any of these appointments due to transportation difficulties. He is unsure of when his sutures are supposed to be removed. 02/28/16 Seen by Mitch Cota PA-C. The patient was seen at [facility] and evaluated by Dr. Monae on an urgent basis as arranged by Dr. Howe at his last visit. The patient reports that Dr. Monae wanted to urgently take him to surgery but the patient would prefer to have Dr. Garcia do it and refused admission to the hospital. 02/21/[address] Howe. The patient does not report pain or significant drainage associated with the Alonzo grade 3 right lateral foot diabetic ulcer and he saw Dr. Garcia , podiatry, this morning who reportedly states she's not able to perform any additional debridement until his right leg vascular status is further evaluated. He had an arterial Doppler scheduled yesterday however both the patient and his son state they were unaware of the appointment. He started taking his Augmentin, which is treating the MSSA and Strep viridans culture from 02/15/16, following the last visit as recommended, states his blood sugars have been consistently below 150 over the past week, and he's offloading by wearing a surgical shoe and significantly limiting his walking. Of note, he's still on supplemental oxygen following his recent hospital discharge and gets short of breath on minimal exertion. Please see my note below from his last visit regarding details of the admission and amputation. 02/15/[address] Howe. The patient does not report pain associated with the right lateral foot diabetic ulcer. He was discharged 4 days ago following a partial ray amputation of the 5th toe and MT due a progressive foot infection that he states occurred over about 2 days prior to being admitted to the hospital. His wound culture on arrival to the ER was polymicrobial and reported on Group C Strep. He was treated with IV Zosyn during the admission and prescribed Augmentin on discharge however he's not yet picked up the prescription. His blood sugars have been relatively well controlled with most below 150 since discharge. Of note, he also had a non-ST elevation IN post-operatively, acute on chronic renal failure with a Cr of 1.8 on discharge, and acute respiratory failure and continues on supplemental oxygen. 12/27/[address] Howe. The patient does not report drainage or pain associated with the chronic right plantar foot diabetic ulcer over the past week. He's not been applying Kerasal to the associated callus as recommended however he does not have diabetic shoes and a new AFO that he's been wearing. His blood sugars also remain relatively well controlled below 150 consistently. 12/06/[address] Howe. The patient does not report pain or significant drainage from the chronic right plantar foot diabetic ulcer. His blood sugars remain well controlled around 120 and he's now wearing his new diabetic shoes and offloading by limiting his walking significantly. He's also applying Kerasal daily to the right foot calluses as recommended. 11/29/[address] Howe. The patient does not report significant drainage from the chronic right plantar foot diabetic ulcer and he states his blood sugars remain well controlled below 150. He's also wearing his diabetic shoes now and limiting his walking to facilitate offloading. 11/23/[address] Howe. The patient reports moderate drainage but no pain associated with the chronic right plantar foot diabetic ulcer. He continues on doxycycline for a polymicrobial positive wound culture and he states his blood sugars remain well controlled with most below 120. 11/15/[address] Howe. The patient's wound culture from the last visit grew Enterobacter, Staph, and group G Strep however he's not yet picked up his prescription for doxycycline. He has at least moderate serosanquinous drainage on the dressing and states he's been a bit more active this past week as his son has been sick and unable to do the shopping. His blood sugar was also elevated yesterday near 200 but has been relatively well controlled prior to that. 11/08/15 Seen by Mitch Coat PA-C. The patient reports that his son is sick and he has been up on his feet taking care of him and has been unable to stay off of his feet. He has noted more drainage from his right plantar foot diabetic ulcer in the past few days. He also reports that his current shoes with inserts are making a large callous on his right heel and he doesn't feel that they offload his ulcer, so he has been trying to walk on the lateral edge of his right foot to offload his ulcer, and now is having lateral right foot pain as a result. 11/01/[address] Howe. The patient admits to being more active over the past two weeks but states there's only been very minimal drainage from the right plantar foot diabetic ulcer. His blood sugars also remain well controlled below 150 consistently. 10/18/[address] Howe. The patient does not report drainage from the right foot plantar diabetic ulcer however he states he has been more active the past week in terms of walking. His blood sugars also remain well controlled below 150. 10/11/[address] Howe. The patient does not report pain or drainage associated with the right plantar foot nor heel diabetic ulcers. 10/04/[address] Howe. The patient does not report drainage from the right plantar foot diabetic ulcer and he continues to use Kerasal daily for the significant right heel callus. His blood sugars are also well controlled below 120 consistently. 09/27/[address] Howe. The patient reports only minimal drainage from the right plantar foot diabetic ulcer and states his blood sugars continue to improve with most between 120 and 180. He's also applying Kerasal to the bilateral foot calluses daily as we've requested. 09/19/[address] Howe. The patient reports significantly decreased drainage from the right plantar foot diabetic ulcer and he'll complete his course of levofloxacin today that treating the polymicrobial wound culture from 09/04/15. His blood sugars are also much better controlled over the past week with most around 150 and very few over 200. 09/12/[address] Howe. The patient continues to report significant drainage from the right plantar diabetic foot ulcer and his wound culture from 09/04/15 grew Strep , Providencia, and Neisseria species. He's now on levofloxacin and does not report adverse effects. He's also no longer experiencing severe hypoglycemic episodes and is working closely with is PCP on adjusting his insulin regimen. His blood sugars due tend to remain over 200 however. 09/07/[address] Howe. The patient continues to report blood sugars as low as the 40's since our visit last week. Regarding his foot ulcers, he reports continued foul smelling drainage from the right foot diabetic ulcer but none from right heel or left foot diabetic ulcer. His blood sugars also may be as high as 300 and he states he's compliant with his diabetes medication regimen and will require as much as 30-40 units of short acting insulin on occasion. He does not report pain in the feet nor fevers or other systemic symptoms. 08/31/[address] Howe. The patient is new to our clinic. On arrival he was not feeling well and was tremulous. The MA checked his blood sugar and is registered 34 which is the lowest the glucometer would read. I spoke with him and he reported feeling very unwell at which time he was urgently transferred to the ER. Of note, he was in the clinic to review bilateral diabetic foot ulcers. He'd also recently lost a son and has been very upset the past week according to staff. Family History This information was obtained from the patient Cancer - Father, Diabetes - Mother, Heart Disease - Mother, Stroke - Mother Social History This information was obtained from the patient Former smoker - quit at age 42, Alcohol Use - rare, Caffeine Use - 1 coffee per day, Children - 2 children, Lives in - Private home with son, Marital Status - , Retired , Substance Abuse - Marijuana Past Medical History This information was obtained from the patient Patient has a medical history of: Chronic Obstructive Pulmonary Disease (COPD) Type II Diabetes (A1c 7.4 on 11/12/2015) PAD Peripheral neuropathy Hypoglycemia CVA Diabetic foot ulcer (Right plantar 1st MTPJ, Alonzo grade II) Coronary Artery Disease (CAD) (s/p IN during admission on 02/04/2016) Lumbar strain CHF Hyperlipidemia CKD stage 3 Gout Diabetic foot ulcer - 02/04/2016 (right lateral foot s/p partial ray amputation; Alonzo grade 3; MSSA and Strep viridans cultured) Surgical History This information was obtained from the patient Patient has a surgical history of: Amputation of left 3rd/4th toe 5 way bypass (11 years ago) Shoulder bilateral surgery (20 years ago) TandA (child) Cataract surgery bilateral (2013) Amputation right 5th toe (01/2016) Complaints and Symptoms This information was obtained from the patient Patient complains of: General Notes: I have reviewed and concur with the Review of Systems and Past Family Social History documents completed by the clinician, I have reviewed and concur with the Wound Assessment document completed by the clinician Cardiovascular (Central): Dyspnea on Exertion Ear/Nose/Mouth/Throat: Hearing Loss / Aid Integumentary (Hair/Skin/Nails): Open Sore Musculoskeletal: Assistive Devices, Deformities Neurological: Loss of Protective Sensation Prior Wound History: Drainage, Erythema, Malodor Patient denies complaints or symptoms related to: Cardiovascular (Central/Peripheral): Intermittent Claudication, Lower extremity (leg) resting pain Constitutional Symptoms (General Health): Chills, Fever Gastrointestinal (GI): Nausea / Vomiting, Stomach/abdominal pain Hematologic/Lymphatic: Bleeding / Clotting Disorders, Bleeding Tendency Musculoskeletal: Muscle Weakness Prior Wound History: Bleeding, Pain Psychiatric: Anxiety, Memory Loss Respiratory: Oxygen Use, Shortness of Breath Additional Information Does patient have a history of Cancer? Yes? Complete all questions.: Yes Location of Cancer: Skin cancer Patient underwent Radiation Treatment? If yes, answer question below.: No OBJECTIVE Constitutional BP elevated; Afebrile; Alert and in no distress. Well developed. Alert. Clean appearing.. Height/Length: 72 in (182.88 cm), Weight: 224.3 lbs (101.95 kgs), BMI: 30.4, Temperature: 98 ?F (36.67 ?C), Pulse: 56 bpm, Respiratory Rate: 18 breaths/min, Blood Pressure: 144/64 mmHg, Pulse Oximetry: 98 %. Vital Signs Notes: Did not take glucose this am and did not take meds. Ears, Nose, Mouth, and Throat: Mild hearing deficit. Respiratory: No respiratory distress. Even respirations and without use of accessory muscles.. Cardiovascular: Pedal pulses 2+ on affected limb. Affected extremity exhibits no peripheral edema or cyanosis, is warm, and is well perfused. Capillary refill is less than 2 seconds. Musculoskeletal: Right lateral foot partial amputation. Integumentary (Hair, Skin) No periwound erythema, warmth, or significant drainage. No periwound rashes appreciated or noted otherwise.. Refer to appropriate clinician wound documentation for this visit; right and left foot ulcers extend to subcut with bases partially covered with pink granulation, remainder fibrin and slough; right foot ulcer nearly healed. Moderate amount of callus in the periulcer areas. Wound #11 Left Metatarsal head first is a chronic Alonzo Grade 2 Diabetic Ulcer and has received a status of Not Healed. Subsequent wound encounter measurements are 1.8cm length x 1cm width x 0.4cm depth, with an area of 1.8 sq cm and a volume of 0.72 cubic cm. Hypergranulation was noted. No tunneling has been noted. No sinus tract has been noted. No undermining has been noted. There is a large amount of serosanguineous drainage noted which has no odor. The patient reports no wound pain due to the wound being insensate. The wound margin is callus. Wound bed has No epithelialization, No eschar, Yes slough, Yes bright red, pink, spongy granulation. The periwound skin color is normal. The periwound skin exhibited: Callus, Moist. The periwound skin did not exhibit: Brawny Induration, Edema, Excoriation, Induration, Crepitus, Fluctuance, Friable, Rash, Dry/Scaly, Maceration. The temperature of the periwound skin is WNL. Periwound skin does not exhibit signs or symptoms of infection. Local Pulse is Palpable. Wound #12 Right, Plantar Metatarsal head first is a Alonzo Grade 2 Diabetic Ulcer and has received a status of Not Healed. Subsequent wound encounter measurements are 0.8cm length x 0.3cm width x 0.1cm depth, with an area of 0.24 sq cm and a volume of 0.024 cubic cm. No tunneling has been noted. No sinus tract has been noted. No undermining has been noted. There is a small amount of serosanguineous drainage noted which has no odor. The patient reports no wound pain due to the wound being insensate. The wound margin is callus. Wound bed has Yes epithelialization, No eschar, Yes slough, Yes pink, firm granulation. The periwound skin exhibited: Callus, Moist. The periwound skin did not exhibit : Brawny Induration, Edema, Excoriation, Induration, Crepitus, Fluctuance, Friable, Rash , Dry/Scaly, Maceration, Atrophie [place], Cyanosis, Ecchymosis, Erythema, Hemosiderosis, Pallor, Rubor. The temperature of the periwound skin is WNL. Periwound skin does not exhibit signs or symptoms of infection. Local Pulse is Normal. Neurological: Cranial nerves grossly intact with symmetric function normal by informal observation.. 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 A skin/ subcutaneous tissue level surgical debridement with a total area debrided of 1.8 sq cm was performed by Nando Howe MD. Subcutaneous was removed along with devitalized tissue: callus and slough. The following instrument(s) were used: curette. Pain control was achieved using 4% Lido. A time out was conducted prior to the start of the procedure. A moderate amount of bleeding was controlled with silver nitrate. The procedure was tolerated well with a pain level of 0 throughout and a pain level of 0 following the procedure. Post Debridement Measurements: 1.8cm length x 1cm width x 0.4cm depth; with an area of 1.8 sq cm and a volume of 0.72 cubic cm; Wound #12 Wound #12 (Diabetic Ulcer) is located on the right, plantar metatarsal head first. A skin/subcutaneous tissue level surgical debridement with a total area debrided of 0.24 sq cm was performed by Nando Howe MD. Subcutaneous was removed along with devitalized tissue: callus and slough. The following instrument(s) were used: curette. Pain control was achieved using 4% Lido. A time out was conducted prior to the start of the procedure. A minimal amount of bleeding was controlled with pressure. The procedure was tolerated well with a pain level of 0 throughout and a pain level of 0 following the procedure. Post Debridement Measurements: 0.8cm length x 0.3cm width x 0.1cm depth; with an area of 0.24 sq cm and a volume of 0.024 cubic cm; Additional Information Muscle fascia or bone removed and sent to pathology?: No PLAN Wound Orders: Wound #11 Left Metatarsal head first Anesthetic Topical Xylocaine to wound bed. - In clinic only. Cleanser Cleanse Wound: - Normal saline and gauze, may use distilled water at home. May Shower. - Keep covered in shower with cast protector or plastic bag. Topical Treatments Antibiotic/Antimicrobial Ointment/Cream. - Iodoform Dressings Cover and secure with: - Foam and hypafix tape. Change Dressing: - Every other day. Wound #12 Right, Plantar Metatarsal head first Anesthetic Topical Xylocaine to wound bed. - In clinic only. Cleanser Cleanse Wound: - Normal saline and gauze, may use distilled water at home. May Shower. - Keep covered in shower with cast protector or plastic bag. Dressings Primary dressing: - TCC foam secured with paper tape. Cover and secure with: - Cotton cast padding wrapped around foot and ankle, and foam taped to pacheco to protect himanshu prominences. Off-Loading Total Contact Cast - Applied to right leg. Additional Orders: Off-Loading Keep weight off: - Both feet as much as possible. Follow-Up Appointments Return Appointment: - - One week for TCC. Other information: If you develop fever, chills, increased pain, drainage, redness or swelling please call our office. If after hours, respond to the ER. Should you experience any significant changes in your wound(s) or have any questions regarding your home care instructions please contact the wound center @ [phone]. If after hours, contact your primary care physician or go to the hospital emergency room. Scribing Attestation I attest, as the nurse, that I scribed these orders for the physician. I've reviewed the clinician's documentation and agree with the evaluation and plan as written. In addition the patient's ulcers demonstrate evidence of non-viable devitalized tissue and they will continue to benefit from sharp debridement to help promote granulation and expedite healing. Electronic Signature(s) Signed By: Date: Nando Howe MD 06/02/2018 09:14:31 Entered By: Nando Howe on 06/02/2018 09:08:41
== END ==
PROVIDERS: Family Provider Physician Assistant Medical; PCP Physician Assistant Medical; Visit Provider Internal Medicine
DX: E11.621 Type 2 diabetes mellitus with foot ulcer (principal); L97.522 Non-pressure chronic ulcer of other part of left foot with fat layer exposed; L97.512 Non-pressure chronic ulcer of other part of right foot with fat layer exposed
CPT/HCPCS: 11042

== ENCOUNTER → 2018-06-08 09:15 | Outpatient (CLI) | payer MEDICARE, SELFPAY ==
--- NOTE | 2018-06-08 | OV.WND_ITS ---
Progress Note Details Patient Name: Nick Drake Patient Number: [id number] PatientPatientDate: 06/08/2018 Clinician: Lacy Malone Clinician Cosigner: Mary Rosales Physician / Tester Rocket Engine: Nando Howe SUBJECTIVE Chief Complaint This information was obtained from the patient Diabetic ulcers to right and left foot. Allergies Minipress (Severity: Severe, Reaction: violent behavior), Vicodin (Severity: Mild, Reaction: itching), nortriptyline (Severity: Moderate), Avandia (Severity: Moderate) HPI This information was obtained from the patient 06/08/18. Seen by Dr. Howe. The patient does not report any complications regarding the right foot total contact cast that was placed 7 days ago and the staff do not report increased drainage or other acute issues regarding the bilateral plantar foot diabetic ulcers. 06/01/18. Seen by Dr. Howe. The patient does not report any complications regarding the right foot total contact cast that was placed 7 days ago and the staff do not report increased drainage or other acute issues regarding the bilateral plantar foot diabetic ulcers. 05/25/18. Seen by Dr. Howe. The patient does not report any complications regarding the right foot total contact cast that was placed 7 days ago and the staff do not report increased drainage or other acute issues regarding the bilateral plantar foot diabetic ulcers. 05/18/18. Seen by Dr. Howe. The patient does not report increased drainage associated with the bilateral plantar 1st MTPJ diabetic ulcers since his last visit. He admits thought to not covering the ulcers while he showers despite our recommendation to wear a cast protector and prevent them from getting wet. 05/13/18. Seen by Dr. Howe. The patient does not report any complications regarding the right foot total contact cast that was placed 7 days ago and the staff do not report increased drainage or other acute issues regarding the bilateral plantar foot diabetic ulcers. There is a possible blister noted however over the posterior right heel. 05/06/18. Seen by Dr. Howe. The patient does not report any complications regarding the right foot total contact cast that was placed 2 days ago and the staff do not report increased drainage or other acute issues regarding the bilateral plantar foot diabetic ulcers. 05/03/18. Seen by Dr. Howe. The patient did not make is appointments last week due to a GI issue. He does not report increased drainage associated with the bilateral plantar 1st MTPJ diabetic ulcers since his last visit however and we're planning on placing a TCC to better offload the right foot ulcer today. Of note, he has a partial right lateral foot amputation that's contributing to heavy periulcer callus formation and the refractory nature of the ulcer. 04/23/18. Seen by Dr. Howe. The patient does not report increased drainage associated with the bilateral plantar 1st MTPJ diabetic ulcers since his last visit. He reports being sick over the past week with nausea and vomiting which has mostly resolved as of today. 04/20/18. Seen by Dr. Howe. The patient does not report increased drainage associated with the bilateral plantar 1st MTPJ diabetic ulcers since his last visit. Also, his total contact cast was ordered but is not available today. It's to be placed on the right lower leg to better facilitate offloading in light of his partial right lateral foot amputation that's contributing significantly to callus formation and the refractory nature of the right foot ulcer. He also missed his appointment with cardiology on 04/07 to discuss intervention for his bilateral lower leg PAD which is also complicating his wound healing. 04/13/18. Seen by Dr. Howe. The patient does not report increased drainage associated with the bilateral plantar 1st MTPJ diabetic ulcers since his last visit. He states he's wearing his right lower leg HYDABURG boot as recommended which is offloading the ulcer and addressing the partial right foot amputation which contributes considerably to recurrent and heavy callus formation. 04/09/18. Seen by Dr. Howe. The patient does not report increased drainage associated with the bilateral plantar 1st MTPJ diabetic ulcers since his last visit. His blood sugar is 226 today and he admits to eating some candy yesterday. 04/06/18. Seen by Dr. Howe. The patient does not report increased drainage associated with the bilateral plantar 1st MTPJ diabetic ulcers since his last visit. His bilateral arterial Doppler performed in February showed possible clinically significant PAD with a high grade stenosis of the right SFA and possible left common femoral inflow obstruction and bilateral lower leg with monophasic flow noted. He does not report rest pain nor claudication however he' s very limited in his mobility due to the plantar foot diabetic ulcers. 04/02/18. Seen by Dr. Howe. The patient continues to wear his HYDABURG boot to offload the right foot 1st MTPJ diabetic ulcer and address the significant deformity associated with the partial lateral foot amputation and he does not report increased drainage associated with this ulcer nor the left plantar foot diabetic ulcer since his last. His wound culture from the last visit grew Staph and group G Strep and he's not currently on antibiotics. 03/30/18. Seen by Dr. Howe. The patient missed his last two appointments and states over the 24 of March he was wearing socks on his deck and noticed bleeding from the bilateral diabetic foot ulcers. His blood sugars are over 400 today and he's run our of insulin and glucose strips. He does not report pain associated with the ulcers and notes he's not wearing his HYDABURG boot on the right foot at all times as recommended. He has a right partial foot amputation and Charcot deformity of both feet. 03/22/18. Seen by Dr. Howe. The patient continues to wear his HYDABURG boot to offload the right foot 1st MTPJ diabetic ulcer and address the significant deformity associated with the partial lateral foot amputation and he does not report increased drainage associated with this ulcer nor the left plantar foot diabetic ulcer since his last. 03/15/18. Seen by Mitch Cota PA-C. The patient reports that he is compliant with his HYDABURG boot but notes increased bleeding and drainage seen in the boot. 03/11/18. Seen by Mitch Cota PA-C. The patient reports stable drainage from his diabetic foot ulcers. His blood sugars continue to be above 150 this week. 03/04/18. Seen by Dr. oHwe. The patient continues to wear his HYDABURG boot to offload the right foot 1st MTPJ diabetic ulcer and address the significant deformity associated with the partial lateral foot amputation and he does not report increased drainage associated with this ulcer nor the left plantar foot diabetic ulcer since his last. He recently completed a course of doxycycline to treat a group G Strep positive culture and is applying iodosorb to the ulcers to help manage the persistent drainage. 03/01/18. Seen by Dr. Howe. The patient continues to wear his HYDABURG boot to offload the right foot 1st MTPJ diabetic ulcer and address the significant deformity associated with the partial lateral foot amputation. He does not report significant drainage associated with this ulcer nor the left plantar foot diabetic ulcer since his last. 02/25/18. Seen by Dr. Howe. The patient will complete his course of doxycycline today that's treating the Staph and group G Strep positive culture taken from the right foot diabetic ulcer. He does not report adverse side effects and nor significant drainage from the ulcer or the left plantar foot diabetic ulcer. 02/22/18. Seen by Dr. Howe. The patient is now on doxycycline for the Staph and group G Strep positive culture taken from the right foot diabetic ulcer last week. He notes some bloody drainage from this site on his dressing today but feels this ulcer and the left foot diabetic ulcer have improved over the past few week. He's offloading the right foot which has a partial lateral amputation using his HYDABURG boot as recommended however he's not using a frame walker. He does not report adverse side effects of the antibiotics nor other acute issues today. 02/18/18. Seen by Dr. Howe. The staff report increased drainage associated with both plantar foot 1st MTPJ diabetic ulcers and the patient reports a malodor from the dressings over the past week. He does not report fevers, feeling unwell, or pain in the feet but states his blood sugars have been a bit elevated in the 180s. He's also wearing his HYDABURG boot as recommended on the right foot but states he does not have enough room in his house to use a knee scooter and does not use his frame walker. 02/11/18. Seen by Dr. Howe. The patient continues to wear his HYDABURG boot to offload the right foot 1st MTPJ diabetic ulcer and address the significant deformity associated with the partial lateral foot amputation. He does not report significant drainage associated with this ulcer nor the left plantar foot diabetic ulcer since his last visit however the nurse states the mole skin dressing was applied inappropriately over the left foot ulcer and was overlying the ulcer itself and soaked with drainage. 02/04/18. Seen by Dr. Howe. The patient continues to wear his HYDABURG boot to offload the right foot 1st MTPJ diabetic ulcer and address the significant deformity associated with the partial lateral foot amputation. He does not report significant drainage associated with this ulcer nor the left plantar foot diabetic ulcer since his last visit. 01/28/2018. Seen by Dr. Howe. The patient is now wearing his HYDABURG boot to offload the right foot 1st MTPJ diabetic ulcer and address the significant deformity associated with the partial lateral foot amputation. He does not report significant drainage associated with this ulcer nor the left plantar foot diabetic ulcer since his last visit. 01/26/18. Seen by Dr. Howe. The patient states he has been without his insulin for over a week which is likely the cause of his blood sugars being around 400 over the past few visits. He has also not contacted his orthotics provider regarding the offloading HYDABURG boot to wear on the right foot noting his significant deformity caused by the partial lateral foot amputation. He has not report increased drainage or other acute changes regarding his bilateral diabetic foot ulcers and will complete his course of doxycycline its treated the recent MSSA positive culture tomorrow. He also reports nausea and one episode of emesis earlier today but not other acute issues. 01/21/2018. Seen by Dr. Howe. The patient arrived today with his right foot dressing upside down. His blood sugars are also over 400. The patient does not report increased drainage associated with the right or left diabetic foot ulcers however states his neuropathic pain has been significant over the past 2 days. He also is going to pick up worker his HYDABURG boot today to help facilitate offloading of the right foot diabetic ulcer noted in he also has a partial lateral amputation on his foot that is contributed significantly 2. Ulcer callus formation. He also continues on doxycycline for he recent MSSA positive wound culture. 01/18/2018. Seen by Dr. Howe. The patient's wound culture from the left foot diabetic ulcer grew MSSA resistant to gentamicin. He is not currently on oral antibiotics and does not report increased drainage from either left right foot diabetic ulcers and is still waiting for his HYDABURG boot to be available to help facilitate better offloading of the right foot noting his partial lateral right foot amputation and severe Charcot deformity. 01/14/18. Seen by Dr. Howe. The patient continues to report moderate drainage from the right and left diabetic foot ulcers over the past few days and he's seen his winch driver who's ordered a HYDABURG boot for the right foot which should be available next week. He has severe bilateral Charcot deformities and partial right lateral foot amputation that contributes to the refractory nature of the ulcers and very heavy callus formation. 01/12/18. Seen by Dr. Howe. The patient reports moderate drainage from the right and left diabetic foot ulcers and he's seen his winch driver who's ordered a HYDABURG boot for the right foot. He has bilateral partial lateral foot amputations which have resulted in refractory calluses of the bilateral plantar MTPJ's and associated DFU's. His blood have been well controlled and his recent hypoglycemic episodes have resolved. 01/07/18. Seen by Dr. Howe. The patient missed his last 2 appointments due to a GI illness last week and she reports some pain in the lateral aspect of the right forefoot but no increased drainage, swelling, or other acute changes of the diabetic foot ulcer. He also does not report any acute issues regarding the left diabetic foot ulcer. Of note, he has significant deformities of both feet due to partial amputations which have each contributed significantly to severe callus formation and the refractory nature of the ulcers. 01/01/18. Seen by Dr. Howe. The patient continues on clindamycin for the chronic right diabetic foot ulcer infection and it is not reported adverse side effects. He also does not report significant drainage associated with either left or right diabetic foot ulcer since his last visit. 12/28/17. Seen by Dr. Howe. The patient does not report increased drainage associated with either right or left foot diabetic ulcers since his last visit. He continues on clindamycin without reporting adverse side effects to treat the chronic right ulcer infection and his blood sugars are well controlled. Of note, he has been attending clinic twice weekly to optimize management of his recurrent and severe apollo-ulcer calluses that are in part due to his severe Charcot deformities and bilateral partial foot amputations. 12/21/17. Seen by Dr. Howe. The patient reports some drainage associated with the right foot diabetic ulcer since his last visit but none associated with the left foot diabetic ulcer. He completed his course of doxycycline today is treating the recent MSSA positive wound culture and is reported adverse side effects, fevers, feeling unwell. He states his blood sugars continue to be well controlled below 180. 12/15/17. Cintiha Howe. The patient's wound culture from the left plantar foot diabetic ulcer his last visit grew MSSA resistant to gentamicin. He does not report increased drainage or pain from either diabetic foot ulcers since his last visit. 12/10/17. Seen by REN Olea. The patient does not report increased drainage from his bilateral diabetic foot ulcers but does report continued odor. Notes a large amount of callous growth. Wound culture from last week showed MSSA and Diphtheroids. He has been applying topical gentamicin. 12/03/17. Seen by Mitch Cota PA-C. The patient reports increased drainage and odor from his bilateral diabetic foot ulcers. He continues to have elevated blood sugars. 11/26/17. Seen by Mitch Cota PA-C. The patient reports that he has decreased his usage of marijuana which he uses for recreation and to treat his neuropathy. He has not had a ground level fall since decreasing his usage. His blood sugars remain >150 and his ulcers' drainage is stable. 11/20/17. Seen by Mitch Cota PA-C. The patient reports no increase in his ulcer drainage from his bilateral lower extremity diabetic ulcers. He has not scheduled an appointment to see his PCP to address his consistently high blood sugars. 11/13/17. Seen by Mitch Cota PA-C. The patient reports stable drainage from his diabetic foot ulcers and continued difficulty keeping his blood sugars below 150. He also reports not wearing his diabetic shoes when at home. 11/09/17. Seen by Mitch Cota PA-C. The patient reports high blood sugars again this week. He does not report increased drainage though he notes callous formation continues to happen quickly between visits. 11/06/17. Seen by Dr. Howe. The patient does not report increased drainage associated with the chronic bilateral diabetic foot ulcers since the last visit. 11/02/17. Seen by Mitch Cota PA-C. The patient reports no increased drainage from his bilateral diabetic foot ulcers. He is not surprised that his blood sugar is low this morning as he did not eat dinner yesterday or breakfast today, citing mild GI discomfort. 10/30/17. Seen by Dr. Howe. The patient missed a few appointments recently due to our facility power outage however he does not report increased drainage or other acute issues regarding his bilateral first MTPJ plantar foot diabetic ulcers. 10/23/17. Seen by Mitch Cota PA-C. The patient reports that he did not take his insulin, or eat this morning. Drainage from his diabetic foot ulcers has been stable. 10/15/17. Seen by Mitch Cota PA-C. The patient reports high blood sugars this week and stable drainage from his foot ulcers. 10/13/17. Seen by Dr. Howe. The patient does not report increased drainage associated with the bilateral plantar foot diabetic ulcers since his last visit. 10/01/17. Seen by Dr. Howe. The patient does not report increased drainage associated with either left or right plantar foot diabetic ulcers since his last visit. 10/01/17. Seen by Dr. Howe. The patient does not report increased drainage associated with either left or right plantar foot diabetic ulcers since his last visit. 09/28/17. Seen by Dr. Howe. The patient does not report increased drainage associated with either left or right plantar foot diabetic ulcers since his last visit. He has been offloading as recommended as well. 09/24/17. Seen by Dr. Howe. The patient reports some increased drainage associated with the right chronic diabetic foot ulcer but none with the left chronic diabetic foot ulcer since his last visit. His blood sugars have been well controlled and he does not report pain in either feet or fevers or feeling unwell. He had been seen twice weekly due to the recent deterioration of the right foot ulcer and need for frequent debridement of the periulcer callus. 09/16/17. Seen by Dr. Howe. The patient does not report significant drainage associated with the bilateral plantar foot diabetic ulcers since last visit and his blood sugars are well controlled over the past week. 09/11/17. Seen by Dr. Howe. The patient states that the right foot diabetic ulcer bled significantly earlier this week when he got out of the shower. He had his INR checked yesterday and it was 3.5. He does not report increased drainage otherwise from either the left or right foot diabetic ulcers since his last visit. He's been seen as twice weekly for the past 2 weeks due to the very heavy accumulation of callus associated with the right foot ulcer. 09/08/17. Seen by Dr. Howe. The patient does not report increased drainage associated with bilateral foot diabetic ulcers since his last visit. 09/04/17. Seen by Dr. Howe. The patient does not report significant drainage associated with the bilateral plantar foot diabetic ulcers since last visit and his blood sugars are well controlled over the past week. 08/31/17. Seen by Dr. Howe. The patient does not report increased drainage associated with the bilateral plantar foot diabetic ulcers since his last visit and he continues on doxycycline for the positive right foot ulcer wound culture. His blood sugars have been well- controlled for the past week and he has had no further episodes of hypoglycemia. 08/26/17. Seen by Dr. Howe. The patient is now on doxycycline resistant MSSA positive wound culture taken from his right diabetic foot ulcer and does not report other side effects. He has picked up his new diabetic shoes and is wearing them as recommended. His blood sugar today is 58 in clinic and he has recently had his short-acting insulin increased by his primary care provider due to frequent episodes of hyperglycemia. He is scheduled to see his PCP again tomorrow to discuss the changes. 08/18/17. Seen by Mitch Cota PA-C. The patient reports a foul odor from his bilateral foot ulcers. He reports that he is feeling much better after an ER trip for hypoxia and his recent O2 saturation readings have been 100%. 08/06/17. Seen by Dr. Howe. The patient reports feeling unwell along with progressive shortness of breath while at rest over the past week. He says he had a low- grade fever at home today and staff report is O2 sats in low 90s upon arrival. He has a history of COPD also with possible admission for pneumonia within the past year. He is here for review of chronic diabetic foot ulcers that have been relatively stable for the past few weeks. 07/28/17. Seen by Mitch Cota PA-C. The patient reports increased drainage and bleeding from his diabetic foot ulcers. 07/20/17. Seen by Mitch Cota PA-C. The patient reports no increase in ulcer drainage since his last evaluation. 07/16/17. Seen by Mitch Cota PA-C. The patient has recently been in hospital where he had a NON-STEMI. He reports a reduction in drainage and wound odor after starting Augmentin. 07/01/17. Seen by Dr. Howe. The patient does not report significant drainage associated with the chronic bilateral plantar foot diabetic ulcers since his last visit. He will be picking up his new diabetic shoes today noting his partial right lateral foot amputation and multiple bilateral toe amputations plus Charcot deformity of both feet are contributing significantly to the recurrent heavy callus formation in the apollo-ulcer areas. He also states that he has not been covering his feet when he is in the shower despite our recommendation to do so. 06/19/17. Seen by Dr. Howe. The patient does not report significant drainage associated with the chronic bilateral plantar MTPJ diabetic ulcers since his last visit. Of note , the patient's blood sugar is 42 in clinic and was 35 earlier this morning. He's mildly symptomatic and is with his son who states the patient's food intake has been a bit less than usual due to limited funds at the end of the month. The patient also admits to trying to keep his blood sugars below 140 at all times and has had the problem of hypoglycemia in our clinic a number of times over the past year. 06/12/17. Seen by Dr. Howe. The patient does not report significant drainage associated with the chronic bilateral plantar MTPJ diabetic ulcers since his last visit. 06/05/17. Seen by Dr. Howe. The patient does not report significant drainage associated with the chronic bilateral plantar MTPJ diabetic ulcers since his last visit. He continues on Augmentin based on the recent wound culture and does not report adverse side effects. He also was seen by Dr. Garcia and his new diabetic shoes have been ordered noting his significant history of right lateral foot amputation and multiple toe amputations plus bilateral Charcot deformities. 05/29/17. Seen by Dr. Howe. The patient's wound culture from 2 days ago of a new right foot diabetic ulcer grew Streptococcus as well as Staph. He does not report increased drainage from this ulcer nor the chronic left foot diabetic ulcer. He is also not yet been seen by podiatry although we did send the referral over a couple weeks ago. His blood sugars continue to be well controlled and of note he has had extensive amputations of both the lateral aspect of the right foot as well as toes on both feet which has contributed significantly to recurrent callus and diabetic ulcer formation. 05/27/17. Seen by Mitch Cota PA-C. The patient reports a new ulcer to his right great toe that he believes has been continuously present for about a week. He denies any trauma to the area though states he may have been walking more lately. He is insensate and notes no pain, though he has seen purulent drainage in the area and notes a foul odor. 05/12/17. Seen by Dr. Howe. The patient does not report significant drainage associated with the chronic left plantar foot diabetic ulcer and he notes that heavy callus again has formed on the right plantar foot surface at the site of his recently healed diabetic ulcer. He has severe bilateral Charcot deformities along with multiple toe amputations that are contributing significantly to health information and the refractory and recurrent nature of his diabetic foot ulcers. He's also asked for us to address his toe nails today as it's been weeks since they've been trimmed. 05/05/17. Seen by Dr. Howe. The patient presents today with low blood sugars in the 40's and states he is feeling unwell in the waiting room. Upon my review he is lucid and eating and his blood sugars have increased into the 50s. He does not report any new problems regarding his chronic left foot diabetic ulcer and states that he has not discussed his hypoglycemia with his primary care provider yet despite having a number of episodes throughout the month. 04/28/17. Seen by Dr. Howe. The patient reports recurrence of his left plantar foot diabetic ulcer over the past week along with some new drainage that's quite malodorous. He does not report pain in the foot nor fevers nor any acute issues regarding his right lateral foot diabetic ulcer. He states his blood sugars continue to be well controlled with most below 120. 04/21/17. Seen by Dr. Howe. The patient does not report pain or drainage associated with the chronic right foot diabetic ulcers since his last visit. 04/14/17. Seen by Dr. Howe. The patient does not report pain or drainage associated with the chronic right foot diabetic ulcers since his last visit. His work diabetic shoe as recommended noting he is a partial right foot and right second toe amputations along with a significant Charcot deformity. 04/07/17. Seen by Dr. Howe. The patient does not report significant drainage or pain associated with the chronic right lower leg diabetic ulcers since his last visit. He snoring softly and she was recommended and reports his blood sugars have been well controlled. Of note, his significant deformity of the right foot including partial lateral amputation as well as second toe amputation and a significant Charcot deformity. 04/02/17. Seen by Dr. Howe. The patient reports that a coin accidentally fell into his right lower leg total contact cast a couple days ago. The staff found a johnson upon removing the cast as well as a new ulcer over the lateral aspect of the right foot. The patient does not report pain at the site nor does staff report significant drainage associated with new ulcer nor the chronic right plantar foot diabetic ulcer. The patient's blood sugars continue to be well controlled and he has no other acute complaints at this time. 03/28/17. Seen by Mitch Cota PA-C. The patient's recent wound culture demonstrated no growth. He has not noted increased drainage since his last evaluation. 03/23/17. Seen by Mitch Cota PA-C. The patient reports no increase in right foot ulcer drainage since his last evaluation. In addition his wound culture demonstrated no growth. 03/17/17. Seen by Dr. Howe. The patient does not report increased drainage associated with the chronic right first MTPJ diabetic ulcer.He completed his course of antibiotics that was treating the recent positive wound culture and does not report adverse side effects. He continues offload with a surgical shoe as well. 03/09/17. Seen by Dr. Howe. The patient does not report pain or significant drainage associated with the recurrent right foot diabetic ulcer. His culture of the ulcer was positive for a staph organism and Acinetobacter however he's not yet been started on antibiotics. He states his blood sugars continue to be well-controlled with most below 150. 03/02/17. Seen by Mitch Cota PA-C. The patient reports no improvement in drainage from his diabetic ulcer of the right foot. He has noted odor at times coming from the ulcer. 02/23/17. Seen by Mitch Cota PA-C. The patient reports no increase in drainage from his diabetic ulcer of the right foot. 02/09/17. Seen by Mitch Cota PA-C. The patient reports that he has just begun taking Bactrim for his infection of his right foot diabetic ulcer. He reports continued purulent drainage and odor. 02/02/17. Seen by Mitch Cota PA-C. The patient returns to our clinic with a new ulcer of his right first metatarsal head. He reportedly smacked his foot hard on the floor, creating this ulcer, in an attempt to stop an episode of neuropathy. 11/10/16. Seen by Mitch Cota PA-C. The patient returns for evaluation of his recently healed ulcer, fearing that it is open again. He has not seen liquid drainage but fears it is draining under the callous. 11/04/16. Seen by Mitch Cota PA-C. The patient does not report any difficulties with his TCC this week. 10/24/16. Seen by Dr. Howe. The patient does not report any problems regarding his TCC and staff do not repot significant drainage on the dressing overlying the left plantar foot diabetic ulcer. His blood sugars remain well controlled with most below 150. 10/20/16 Seen by Mitch Cota PA-C. The patient is here for placement of a TCC to offload his left plantar foot diabetic ulcer. He notes that the drainage from his ulcer has soaked through the TCC under-layers and almost soaked through the cast. 10/15/16. Seen by Dr. Howe. The patient tolerated his TCC with minimal discomfort noting mild pain in the left 1st toe. The staff do not report significant drainage associated with the chronic left plantar foot diabetic ulcer and he states his blood sugars are mostly below 150. He's now been placed in a TCC to optimize offloading needed to accommodate for the left foot Charcot deformity that's lead to recurrent heavy callus formation in the periulcer area. 10/13/16 Seen by Mitch Cota PA-C. The patient reports no increase in drainage from his left foot diabetic non-pressure ulcer since his last evaluation. 09/29/15 Seen by Mitch Cota PA-C. The patient reports no increase in drainage from his chronic left foot diabetic ulcer. He does voice frustration that his wound is taking so long to heal. 09/19/16. Seen by Dr. Howe. The patient does not report increased drainage or other acute issues regarding his chronic left plantar foot diabetic ulcer since his last visit. 09/12/16. Seen by Dr. Howe. The patient does not report significant drainage associated with the chronic left plantar foot diabetic ulcer over the past week. He's applying Kerasal to the periwound callus as recommended and has limited his walking considerably, in addition to wearing an offloading shoe, to minimize callus formation. His blood sugars also remain well controlled with most below 150 and he continues on Bactrim for an infection of the ulcer without reporting adverse side effects. 09/05/16. Seen by Dr. Howe. The patient returns to clinic with recurrent of his left plantar foot diabetic ulcer that he states reopened about 2 weeks ago. He was placed on Keflex by his PCP yesterday due to the appearance of the ulcer and significant drainage. He states his blood sugars are well controlled and he limits his walking to help facilitate offloading. 07/28/16. Seen by Dr. Howe. The patient does not report significant drainage associated with the chronic left plantar foot diabetic ulcer over the past week. He's applying Kerasal to the periwound callus as recommended and states his blood sugars are consistently below 150. He does report ongoing nausea for the past few weeks and states he's on 3 nausea medications but does not know what's causing it. He's working with his PCP on this problem. 07/15/16 Seen by Mitch Cota PA-C. The patient reports no fever chills or pain from his left foot diabetic ulcer since his last evaluation. 07/10/16. Seen by Dr. Howe. The patient does not report significant drainage associated with the chronic left plantar foot diabetic ulcer over the past week. He's applying Kerasal to the periwound callus as recommended and has limited his walking considerably, in addition to wearing an offloading shoe, to minimize callus formation. 07/08/16 Seen by Mitch Cota PA-C. The patient reports no increase in pain or drainage from his ulcer, though he does report nausea and vomiting. After further review, it appears that his PPI prescription has run out and he stopped it abruptly. He has not had associated fever, chills or lower GI symptoms. His blood sugars have reportedly been above 150 this week. The patient reports that he still has problems with callous formation on his feet and will be seeing podiatry. 07/04/16. Seen by Dr. Howe. The patient does not report significant drainage associated with the chronic left plantar foot diabetic ulcer since his last visit. He does report significant nausea and vomiting over the past week however but does not report fever, cough, or other specific symptoms and feels the nausea has started to improve as of yesterday. He states his blood sugars have been well controlled with most below 150 and he's on Augmentin for the recent MSSA and Strep positive wound culture. He's also been applying Kerasal to the periwound callus as recommended and has been limited in his walking the past week due to illness. 06/23/16 Seeb by Mitch Cota PA-C. The patient reports that he believes he has an infection in his foot because his dog has been sniffing and licking his open ulcer. He believes his dog has a nose for infection. He reports a continuous, strong, foul odor from his left plantar foot ulcer for the past 3 days with an associated increase in drainage. In addition he has not been offloading his foot as instructed and is going barefoot at home. 06/16/16 Seen by Mitch Cota PA-C. The patient reports that he is walking barefoot in the house and only wears shoes outside the house. His left foot diabetic ulcer drainage has been stable. 06/02/16 Seen by Mitch Cota PA-C. The patient reports that he is due to have a new orthotic fitted for his deformed left foot to further offload his chronic left foot ulcer. He reports stable drainage from this ulcer. 05/27/16 Seen by Mitch Cota PA-C. The patient reports that he now has a new wound near his chronic left plantar foot diabetic ulcer. The new wound began spontaneously and was noted today. His chronic ulcer has had stable drainage. 05/19/16. Seen by Dr. Howe. The patient does not report significant drainage associated with the chronic left plant foot diabetic ulcer over the past week and he states his blood sugars are well controlled with most below 150. 05/12/16. Seen by Dr. Howe. The patient reports some new pain along the right foot surgical scar but no swelling or drainage from the site. He does not recall injuring the foot and feels he may have been more active over the past week. He does not report significant or drainage associated with the left plantar foot diabetic ulcer and states he's not been able to check his blood sugars due to the fact he ran out of glucometer strips this past week. His blood sugar today is 280. 04/11/16. Seen by Dr. Howe. The patient does not report pain or drainage associated with the chronic right lateral foot diabetic ulcer of the past week. He states his blood sugars are consistently below 150 and he is wearing his offloading shoe is recommended. 04/04/16. Seen by Dr. Howe. 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 He states his blood sugars are mostly below 150 and he's offloading using a surgical offloading shoe. He's now off of antibiotics and is here today with his granddaughter who's assisting with his care. 03/31/16 Seen by Mitch Cota PA-C. The patient has returned from [facility] where he had a 4th ray amputation performed to his right foot. He reports that he was supposed to have follow up appointments with surgery, cardiology and wound care but has not attended any of these appointments due to transportation difficulties. He is unsure of when his sutures are supposed to be removed. 02/28/16 Seen by Mitch Cota PA-C. The patient was seen at [facility] and evaluated by Dr. Monae on an urgent basis as arranged by Dr. Howe at his last visit. The patient reports that Dr. Monae wanted to urgently take him to surgery but the patient would prefer to have Dr. Garcia do it and refused admission to the hospital. 02/21/[address] Howe. The patient does not report pain or significant drainage associated with the Alonzo grade 3 right lateral foot diabetic ulcer and he saw Dr. Garcia , podiatry, this morning who reportedly states she's not able to perform any additional debridement until his right leg vascular status is further evaluated. He had an arterial Doppler scheduled yesterday however both the patient and his son state they were unaware of the appointment. He started taking his Augmentin, which is treating the MSSA and Strep viridans culture from 02/15/16, following the last visit as recommended, states his blood sugars have been consistently below 150 over the past week, and he's offloading by wearing a surgical shoe and significantly limiting his walking. Of note, he's still on supplemental oxygen following his recent hospital discharge and gets short of breath on minimal exertion. Please see my note below from his last visit regarding details of the admission and amputation. 02/15/[address] Howe. The patient does not report pain associated with the right lateral foot diabetic ulcer. He was discharged 4 days ago following a partial ray amputation of the 5th toe and MT due a progressive foot infection that he states occurred over about 2 days prior to being admitted to the hospital. His wound culture on arrival to the ER was polymicrobial and reported on Group C Strep. He was treated with IV Zosyn during the admission and prescribed Augmentin on discharge however he's not yet picked up the prescription. His blood sugars have been relatively well controlled with most below 150 since discharge. Of note, he also had a non-ST elevation MA post-operatively, acute on chronic renal failure with a Cr of 1.8 on discharge, and acute respiratory failure and continues on supplemental oxygen. 12/27/[address] Howe. The patient does not report drainage or pain associated with the chronic right plantar foot diabetic ulcer over the past week. He's not been applying Kerasal to the associated callus as recommended however he does not have diabetic shoes and a new AFO that he's been wearing. His blood sugars also remain relatively well controlled below 150 consistently. 12/06/[address] Howe. The patient does not report pain or significant drainage from the chronic right plantar foot diabetic ulcer. His blood sugars remain well controlled around 120 and he's now wearing his new diabetic shoes and offloading by limiting his walking significantly. He's also applying Kerasal daily to the right foot calluses as recommended. 11/29/[address] Howe. The patient does not report significant drainage from the chronic right plantar foot diabetic ulcer and he states his blood sugars remain well controlled below 150. He's also wearing his diabetic shoes now and limiting his walking to facilitate offloading. 11/23/[address] Howe. The patient reports moderate drainage but no pain associated with the chronic right plantar foot diabetic ulcer. He continues on doxycycline for a polymicrobial positive wound culture and he states his blood sugars remain well controlled with most below 120. 11/15/[address] Howe. The patient's wound culture from the last visit grew Enterobacter, Staph, and group G Strep however he's not yet picked up his prescription for doxycycline. He has at least moderate serosanquinous drainage on the dressing and states he's been a bit more active this past week as his son has been sick and unable to do the shopping. His blood sugar was also elevated yesterday near 200 but has been relatively well controlled prior to that. 11/08/15 Seen by Mitch Cota PA-C. The patient reports that his son is sick and he has been up on his feet taking care of him and has been unable to stay off of his feet. He has noted more drainage from his right plantar foot diabetic ulcer in the past few days. He also reports that his current shoes with inserts are making a large callous on his right heel and he doesn't feel that they offload his ulcer, so he has been trying to walk on the lateral edge of his right foot to offload his ulcer, and now is having lateral right foot pain as a result. 11/01/[address] Howe. The patient admits to being more active over the past two weeks but states there's only been very minimal drainage from the right plantar foot diabetic ulcer. His blood sugars also remain well controlled below 150 consistently. 10/18/[address] Howe. The patient does not report drainage from the right foot plantar diabetic ulcer however he states he has been more active the past week in terms of walking. His blood sugars also remain well controlled below 150. 10/11/[address] Howe. The patient does not report pain or drainage associated with the right plantar foot nor heel diabetic ulcers. 10/04/[address] Howe. The patient does not report drainage from the right plantar foot diabetic ulcer and he continues to use Kerasal daily for the significant right heel callus. His blood sugars are also well controlled below 120 consistently. 09/27/[address] Howe. The patient reports only minimal drainage from the right plantar foot diabetic ulcer and states his blood sugars continue to improve with most between 120 and 180. He's also applying Kerasal to the bilateral foot calluses daily as we've requested. 09/19/[address] Howe. The patient reports significantly decreased drainage from the right plantar foot diabetic ulcer and he'll complete his course of levofloxacin today that treating the polymicrobial wound culture from 09/04/15. His blood sugars are also much better controlled over the past week with most around 150 and very few over 200. 09/12/[address] Howe. The patient continues to report significant drainage from the right plantar diabetic foot ulcer and his wound culture from 09/04/15 grew Strep , Providencia, and Neisseria species. He's now on levofloxacin and does not report adverse effects. He's also no longer experiencing severe hypoglycemic episodes and is working closely with is PCP on adjusting his insulin regimen. His blood sugars due tend to remain over 200 however. 09/07/[address] Howe. The patient continues to report blood sugars as low as the 40's since our visit last week. Regarding his foot ulcers, he reports continued foul smelling drainage from the right foot diabetic ulcer but none from right heel or left foot diabetic ulcer. His blood sugars also may be as high as 300 and he states he's compliant with his diabetes medication regimen and will require as much as 30-40 units of short acting insulin on occasion. He does not report pain in the feet nor fevers or other systemic symptoms. 08/31/[address] Howe. The patient is new to our clinic. On arrival he was not feeling well and was tremulous. The MA checked his blood sugar and is registered 34 which is the lowest the glucometer would read. I spoke with him and he reported feeling very unwell at which time he was urgently transferred to the ER. Of note, he was in the clinic to review bilateral diabetic foot ulcers. He'd also recently lost a son and has been very upset the past week according to staff. Past Medical History This information was obtained from the patient Patient has a medical history of: Chronic Obstructive Pulmonary Disease (COPD) Type II Diabetes (A1c 7.4 on 11/12/2015) PAD Peripheral neuropathy Hypoglycemia CVA Diabetic foot ulcer (Right plantar 1st MTPJ, Alonzo grade II) Coronary Artery Disease (CAD) (s/p MA during admission on 02/04/2016) Lumbar strain CHF Hyperlipidemia CKD stage 3 Gout Diabetic foot ulcer - 02/04/2016 (right lateral foot s/p partial ray amputation; Alonzo grade 3; MSSA and Strep viridans cultured) Complaints and Symptoms This information was obtained from the patient Patient complains of: General Notes: I have reviewed and concur with the Review of Systems and Past Family Social History documents completed by the clinician, I have reviewed and concur with the Wound Assessment document completed by the clinician Cardiovascular (Central): Dyspnea on Exertion Ear/Nose/Mouth/Throat: Hearing Loss / Aid Integumentary (Hair/Skin/Nails): Open Sore Musculoskeletal: Assistive Devices, Deformities Neurological: Loss of Protective Sensation Prior Wound History: Drainage, Erythema, Malodor Patient denies complaints or symptoms related to: Cardiovascular (Central/Peripheral): Intermittent Claudication, Lower extremity (leg) resting pain Constitutional Symptoms (General Health): Chills, Fever Gastrointestinal (GI): Nausea / Vomiting, Stomach/abdominal pain Hematologic/Lymphatic: Bleeding / Clotting Disorders, Bleeding Tendency Musculoskeletal: Muscle Weakness Prior Wound History: Bleeding, Pain Psychiatric: Anxiety, Memory Loss Respiratory: Oxygen Use, Shortness of Breath Additional Information Does patient have a history of Cancer? Yes? Complete all questions.: Yes Location of Cancer: Skin cancer Patient underwent Radiation Treatment? If yes, answer question below.: No OBJECTIVE Constitutional BP elevated; Afebrile; Alert and in no distress. Well developed. Alert. Clean appearing.. Height/Length: 72 in (182.88 cm), Weight: 224.3 lbs (101.95 kgs), BMI: 30.4, Temperature: 96.2 ?F (35.67 ?C), Pulse: 62 bpm, Respiratory Rate: 18 breaths/min, Blood Pressure: 147/67 mmHg, Capillary Blood Glucose: 163 mg/dl, Pulse Oximetry: 96 %. Vital Signs Notes: Glucose per patient. Ears, Nose, Mouth, and Throat: Mild hearing deficit. Respiratory: No respiratory distress. Even respirations and without use of accessory muscles.. Cardiovascular: Affected extremity exhibits no peripheral edema or cyanosis, is warm, and is well perfused. Capillary refill is less than 2 seconds. Musculoskeletal: Right lateral foot partial amputation. Severe left foot Charcot deformity. Integumentary (Hair, Skin) No periwound erythema, warmth, or significant drainage. No periwound rashes appreciated or noted otherwise.. Refer to appropriate clinician wound documentation for this visit; right and left foot ulcers extend to subcut with bases partially covered with red, friable granulation, remainder fibrin and slough. Significant amount of callus in the periulcer areas. Wound #11 Left Metatarsal head first is a chronic Alonzo Grade 2 Diabetic Ulcer and has received a status of Not Healed. Subsequent wound encounter measurements are 1.5cm length x 1.3cm width x 0.4cm depth, with an area of 1.95 sq cm and a volume of 0.78 cubic cm. Hypergranulation was noted. No tunneling has been noted. No sinus tract has been noted. No undermining has been noted. There is a large amount of serosanguineous drainage noted which has no odor. The patient reports no wound pain due to the wound being insensate. The wound margin is callus. Wound bed has No epithelialization, No eschar, No slough , Yes pink, spongy granulation. The periwound skin color is normal. The periwound skin exhibited: Callus, Moist. The periwound skin did not exhibit: Brawny Induration, Edema, Excoriation, Induration, Crepitus, Fluctuance, Friable, Rash, Dry/Scaly, Maceration. The temperature of the periwound skin is WNL. Periwound skin does not exhibit signs or symptoms of infection. Local Pulse is Palpable. Wound #12 Right, Plantar Metatarsal head first is a Alonzo Grade 2 Diabetic Ulcer and has received a status of Not Healed. Subsequent wound encounter measurements are 0.4cm length x 0.4cm width x 0.1cm depth, with an area of 0.16 sq cm and a volume of 0.016 cubic cm. No tunneling has been noted. No sinus tract has been noted. No undermining has been noted. There is a small amount of serosanguineous drainage noted which has no odor. The patient reports no wound pain due to the wound being insensate. The wound margin is callus. Wound bed has Yes epithelialization, No eschar, No slough, Yes pink, firm granulation. The periwound skin exhibited: Callus, Moist. The periwound skin did not exhibit : Brawny Induration, Edema, Excoriation, Induration, Crepitus, Fluctuance, Friable, Rash , Dry/Scaly, Maceration, Atrophie [place], Cyanosis, Ecchymosis, Erythema, Hemosiderosis, Pallor, Rubor. The temperature of the periwound skin is WNL. Periwound skin does not exhibit signs or symptoms of infection. Local Pulse is Normal. Neurological: Cranial nerves grossly intact with symmetric function normal by informal observation.. 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 A skin/ subcutaneous tissue level surgical debridement with a total area debrided of 1.95 sq cm was performed by Nando Howe MD. Subcutaneous was removed along with devitalized tissue: callus and exudate. The following instrument(s) were used: curette. Pain control was achieved using 4% Lido. A time out was conducted prior to the start of the procedure. A moderate amount of bleeding was controlled with silver nitrate. The procedure was tolerated well with a pain level of 0 throughout and a pain level of 0 following the procedure. Post Debridement Measurements: 1.5cm length x 1.3cm width x 0.4cm depth; with an area of 1.95 sq cm and a volume of 0.78 cubic cm; General Notes: culture taken. Wound #12 Wound #12 (Diabetic Ulcer) is located on the right, plantar metatarsal head first. A skin/subcutaneous tissue level surgical debridement with a total area debrided of 0.16 sq cm was performed by Nando Howe MD. Subcutaneous was removed along with devitalized tissue: callus and exudate. The following instrument(s) were used: curette. Pain control was achieved using 4% Lido. A time out was conducted prior to the start of the procedure. A moderate amount of bleeding was controlled with silver nitrate. The procedure was tolerated well with a pain level of 0 throughout and a pain level of 0 following the procedure. Post Debridement Measurements: 0.4cm length x 0.4cm width x 0.1cm depth; with an area of 0.16 sq cm and a volume of 0.016 cubic cm; Additional Information Muscle fascia or bone removed and sent to pathology?: No Muscle fascia or bone removed and sent to pathology?: No PLAN Wound Orders: Wound #11 Left Metatarsal head first Anesthetic Topical Xylocaine to wound bed. - In clinic only. Cleanser Cleanse Wound: - Normal saline and gauze, may use distilled water at home. May Shower. - Keep covered in shower with cast protector or plastic bag. Topical Treatments Antibiotic/Antimicrobial Ointment/Cream. - Iodoform Dressings Cover and secure with: - Foam and hypafix tape. Change Dressing: - Every other day. Wound #12 Right, Plantar Metatarsal head first Anesthetic Topical Xylocaine to wound bed. - In clinic only. Cleanser Cleanse Wound: - Normal saline and gauze, may use distilled water at home. May Shower. - Keep covered in shower with cast protector or plastic bag. Dressings Primary dressing: - TCC foam secured with paper tape. Cover and secure with: - Cotton cast padding wrapped around foot and ankle, and foam taped to pacheco to protect himanshu prominences. Off-Loading Total Contact Cast - Applied to right leg. Additional Orders: Off-Loading Keep weight off: - Both feet as much as possible. Follow-Up Appointments Return Appointment: - - One week for TCC. Other information: If you develop fever, chills, increased pain, drainage, redness or swelling please call our office. If after hours, respond to the ER. Should you experience any significant changes in your wound(s) or have any questions regarding your home care instructions please contact the wound center @ [phone]. If after hours, contact your primary care physician or go to the hospital emergency room. Scribing Attestation I attest, as the nurse, that I scribed these orders for the physician. Laboratory: Culture Wound - Left !st Met I've reviewed the clinician's documentation and agree with the evaluation and plan as written. In addition the patient's ulcers demonstrate evidence of non-viable devitalized tissue and they will continue to benefit from sharp debridement to help promote granulation and expedite healing. Also, we'll continue with another week using the TCC on the right foot and plan on transiting this to the left foot next week. Electronic Signature(s) Signed By: Date: Nando Howe MD 06/29/2018 08:43:34 Entered By: Nando Howe on 06/08/2018 10:16:23
== END ==
PROVIDERS: Family Provider Physician Assistant Medical; PCP Physician Assistant Medical; Visit Provider Internal Medicine
DX: E11.621 Type 2 diabetes mellitus with foot ulcer (principal); L97.522 Non-pressure chronic ulcer of other part of left foot with fat layer exposed; L97.512 Non-pressure chronic ulcer of other part of right foot with fat layer exposed
CPT/HCPCS: 11042; 87070; 87077; 87147; 87205

== ENCOUNTER → 2018-06-15 09:26 | Outpatient (CLI) | payer MEDICARE, SELFPAY ==
--- NOTE | 2018-06-15 | OV.WND_ITS ---
Progress Note Details Patient Name: Nick Drake Patient Number: [id number] PatientPatientDate: 06/15/2018 Clinician: Rina Bentley Clinician Cosigner: Mary Rosales Physician / Biofuels Operations Manager: Nando Howe SUBJECTIVE Chief Complaint This information was obtained from the patient Diabetic ulcers to right and left foot. Allergies Minipress (Severity: Severe, Reaction: violent behavior), Vicodin (Severity: Mild, Reaction: itching), nortriptyline (Severity: Moderate), Avandia (Severity: Moderate) HPI This information was obtained from the patient 06/15/18. Seen by Dr. Howe. The patient does not report any complications regarding the right foot total contact cast and the staff do not report increased drainage or other acute issues regarding the bilateral plantar foot diabetic ulcers. 06/08/18. Seen by Dr. Howe. The patient does not report any complications regarding the right foot total contact cast that was placed 7 days ago and the staff do not report increased drainage or other acute issues regarding the bilateral plantar foot diabetic ulcers. 06/01/18. Seen by Dr. Howe. The patient does not report any complications regarding the right foot total contact cast that was placed 7 days ago and the staff do not report increased drainage or other acute issues regarding the bilateral plantar foot diabetic ulcers. 05/25/18. Seen by Dr. Howe. The patient does not report any complications regarding the right foot total contact cast that was placed 7 days ago and the staff do not report increased drainage or other acute issues regarding the bilateral plantar foot diabetic ulcers. 05/18/18. Seen by Dr. Howe. The patient does not report increased drainage associated with the bilateral plantar 1st MTPJ diabetic ulcers since his last visit. He admits thought to not covering the ulcers while he showers despite our recommendation to wear a cast protector and prevent them from getting wet. 05/13/18. Seen by Dr. Howe. The patient does not report any complications regarding the right foot total contact cast that was placed 7 days ago and the staff do not report increased drainage or other acute issues regarding the bilateral plantar foot diabetic ulcers. There is a possible blister noted however over the posterior right heel. 05/06/18. Seen by Dr. Howe. The patient does not report any complications regarding the right foot total contact cast that was placed 2 days ago and the staff do not report increased drainage or other acute issues regarding the bilateral plantar foot diabetic ulcers. 05/03/18. Seen by Dr. Howe. The patient did not make is appointments last week due to a GI issue. He does not report increased drainage associated with the bilateral plantar 1st MTPJ diabetic ulcers since his last visit however and we're planning on placing a TCC to better offload the right foot ulcer today. Of note, he has a partial right lateral foot amputation that's contributing to heavy periulcer callus formation and the refractory nature of the ulcer. 04/23/18. Seen by Dr. Howe. The patient does not report increased drainage associated with the bilateral plantar 1st MTPJ diabetic ulcers since his last visit. He reports being sick over the past week with nausea and vomiting which has mostly resolved as of today. 04/20/18. Seen by Dr. Howe. The patient does not report increased drainage associated with the bilateral plantar 1st MTPJ diabetic ulcers since his last visit. Also, his total contact cast was ordered but is not available today. It's to be placed on the right lower leg to better facilitate offloading in light of his partial right lateral foot amputation that's contributing significantly to callus formation and the refractory nature of the right foot ulcer. He also missed his appointment with cardiology on 04/07 to discuss intervention for his bilateral lower leg PAD which is also complicating his wound healing. 04/13/18. Seen by Dr. Howe. The patient does not report increased drainage associated with the bilateral plantar 1st MTPJ diabetic ulcers since his last visit. He states he's wearing his right lower leg COMANCHE boot as recommended which is offloading the ulcer and addressing the partial right foot amputation which contributes considerably to recurrent and heavy callus formation. 04/09/18. Seen by Dr. Howe. The patient does not report increased drainage associated with the bilateral plantar 1st MTPJ diabetic ulcers since his last visit. His blood sugar is 226 today and he admits to eating some candy yesterday. 04/06/18. Seen by Dr. Howe. The patient does not report increased drainage associated with the bilateral plantar 1st MTPJ diabetic ulcers since his last visit. His bilateral arterial Doppler performed in February showed possible clinically significant PAD with a high grade stenosis of the right SFA and possible left common femoral inflow obstruction and bilateral lower leg with monophasic flow noted. He does not report rest pain nor claudication however he' s very limited in his mobility due to the plantar foot diabetic ulcers. 04/02/18. Seen by Dr. Howe. The patient continues to wear his COMANCHE boot to offload the right foot 1st MTPJ diabetic ulcer and address the significant deformity associated with the partial lateral foot amputation and he does not report increased drainage associated with this ulcer nor the left plantar foot diabetic ulcer since his last. His wound culture from the last visit grew Staph and group G Strep and he's not currently on antibiotics. 03/30/18. Seen by Dr. Howe. The patient missed his last two appointments and states over the 24 of March he was wearing socks on his deck and noticed bleeding from the bilateral diabetic foot ulcers. His blood sugars are over 400 today and he's run our of insulin and glucose strips. He does not report pain associated with the ulcers and notes he's not wearing his COMANCHE boot on the right foot at all times as recommended. He has a right partial foot amputation and Charcot deformity of both feet. 03/22/18. Seen by Dr. Howe. The patient continues to wear his COMANCHE boot to offload the right foot 1st MTPJ diabetic ulcer and address the significant deformity associated with the partial lateral foot amputation and he does not report increased drainage associated with this ulcer nor the left plantar foot diabetic ulcer since his last. 03/15/18. Seen by Mitch Cota PA-C. The patient reports that he is compliant with his COMANCHE boot but notes increased bleeding and drainage seen in the boot. 03/11/18. Seen by Mitch Cota PA-C. The patient reports stable drainage from his diabetic foot ulcers. His blood sugars continue to be above 150 this week. 03/04/18. Seen by Dr. Howe. The patient continues to wear his COMANCHE boot to offload the right foot 1st MTPJ diabetic ulcer and address the significant deformity associated with the partial lateral foot amputation and he does not report increased drainage associated with this ulcer nor the left plantar foot diabetic ulcer since his last. He recently completed a course of doxycycline to treat a group G Strep positive culture and is applying iodosorb to the ulcers to help manage the persistent drainage. 03/01/18. Seen by Dr. Howe. The patient continues to wear his COMANCHE boot to offload the right foot 1st MTPJ diabetic ulcer and address the significant deformity associated with the partial lateral foot amputation. He does not report significant drainage associated with this ulcer nor the left plantar foot diabetic ulcer since his last. 02/25/18. Seen by Dr. Howe. The patient will complete his course of doxycycline today that's treating the Staph and group G Strep positive culture taken from the right foot diabetic ulcer. He does not report adverse side effects and nor significant drainage from the ulcer or the left plantar foot diabetic ulcer. 02/22/18. Seen by Dr. Howe. The patient is now on doxycycline for the Staph and group G Strep positive culture taken from the right foot diabetic ulcer last week. He notes some bloody drainage from this site on his dressing today but feels this ulcer and the left foot diabetic ulcer have improved over the past few week. He's offloading the right foot which has a partial lateral amputation using his COMANCHE boot as recommended however he's not using a frame walker. He does not report adverse side effects of the antibiotics nor other acute issues today. 02/18/18. Seen by Dr. Howe. The staff report increased drainage associated with both plantar foot 1st MTPJ diabetic ulcers and the patient reports a malodor from the dressings over the past week. He does not report fevers, feeling unwell, or pain in the feet but states his blood sugars have been a bit elevated in the 180s. He's also wearing his COMANCHE boot as recommended on the right foot but states he does not have enough room in his house to use a knee scooter and does not use his frame walker. 02/11/18. Seen by Dr. Howe. The patient continues to wear his COMANCHE boot to offload the right foot 1st MTPJ diabetic ulcer and address the significant deformity associated with the partial lateral foot amputation. He does not report significant drainage associated with this ulcer nor the left plantar foot diabetic ulcer since his last visit however the nurse states the mole skin dressing was applied inappropriately over the left foot ulcer and was overlying the ulcer itself and soaked with drainage. 02/04/18. Seen by Dr. Howe. The patient continues to wear his COMANCHE boot to offload the right foot 1st MTPJ diabetic ulcer and address the significant deformity associated with the partial lateral foot amputation. He does not report significant drainage associated with this ulcer nor the left plantar foot diabetic ulcer since his last visit. 01/28/2018. Seen by Dr. Howe. The patient is now wearing his COMANCHE boot to offload the right foot 1st MTPJ diabetic ulcer and address the significant deformity associated with the partial lateral foot amputation. He does not report significant drainage associated with this ulcer nor the left plantar foot diabetic ulcer since his last visit. 01/26/18. Seen by Dr. Howe. The patient states he has been without his insulin for over a week which is likely the cause of his blood sugars being around 400 over the past few visits. He has also not contacted his orthotics provider regarding the offloading COMANCHE boot to wear on the right foot noting his significant deformity caused by the partial lateral foot amputation. He has not report increased drainage or other acute changes regarding his bilateral diabetic foot ulcers and will complete his course of doxycycline its treated the recent MSSA positive culture tomorrow. He also reports nausea and one episode of emesis earlier today but not other acute issues. 01/21/2018. Seen by Dr. Howe. The patient arrived today with his right foot dressing upside down. His blood sugars are also over 400. The patient does not report increased drainage associated with the right or left diabetic foot ulcers however states his neuropathic pain has been significant over the past 2 days. He also is going to apple picking supervisor his COMANCHE boot today to help facilitate offloading of the right foot diabetic ulcer noted in he also has a partial lateral amputation on his foot that is contributed significantly 2. Ulcer callus formation. He also continues on doxycycline for he recent MSSA positive wound culture. 01/18/2018. Seen by Dr. Howe. The patient's wound culture from the left foot diabetic ulcer grew MSSA resistant to gentamicin. He is not currently on oral antibiotics and does not report increased drainage from either left right foot diabetic ulcers and is still waiting for his COMANCHE boot to be available to help facilitate better offloading of the right foot noting his partial lateral right foot amputation and severe Charcot deformity. 01/14/18. Seen by Dr. Howe. The patient continues to report moderate drainage from the right and left diabetic foot ulcers over the past few days and he's seen his communications equipment installer who's ordered a COMANCHE boot for the right foot which should be available next week. He has severe bilateral Charcot deformities and partial right lateral foot amputation that contributes to the refractory nature of the ulcers and very heavy callus formation. 01/12/18. Seen by Dr. Howe. The patient reports moderate drainage from the right and left diabetic foot ulcers and he's seen his communications equipment installer who's ordered a COMANCHE boot for the right foot. He has bilateral partial lateral foot amputations which have resulted in refractory calluses of the bilateral plantar MTPJ's and associated DFU's. His blood have been well controlled and his recent hypoglycemic episodes have resolved. 01/07/18. Seen by Dr. Howe. The patient missed his last 2 appointments due to a GI illness last week and she reports some pain in the lateral aspect of the right forefoot but no increased drainage, swelling, or other acute changes of the diabetic foot ulcer. He also does not report any acute issues regarding the left diabetic foot ulcer. Of note, he has significant deformities of both feet due to partial amputations which have each contributed significantly to severe callus formation and the refractory nature of the ulcers. 01/01/18. Seen by Dr. Howe. The patient continues on clindamycin for the chronic right diabetic foot ulcer infection and it is not reported adverse side effects. He also does not report significant drainage associated with either left or right diabetic foot ulcer since his last visit. 12/28/17. Seen by Dr. Howe. The patient does not report increased drainage associated with either right or left foot diabetic ulcers since his last visit. He continues on clindamycin without reporting adverse side effects to treat the chronic right ulcer infection and his blood sugars are well controlled. Of note, he has been attending clinic twice weekly to optimize management of his recurrent and severe apollo-ulcer calluses that are in part due to his severe Charcot deformities and bilateral partial foot amputations. 12/21/17. Seen by Dr. Howe. The patient reports some drainage associated with the right foot diabetic ulcer since his last visit but none associated with the left foot diabetic ulcer. He completed his course of doxycycline today is treating the recent MSSA positive wound culture and is reported adverse side effects, fevers, feeling unwell. He states his blood sugars continue to be well controlled below 180. 12/15/17. Cinthia Howe. The patient's wound culture from the left plantar foot diabetic ulcer his last visit grew MSSA resistant to gentamicin. He does not report increased drainage or pain from either diabetic foot ulcers since his last visit. 12/10/17. Seen by REN Olea. The patient does not report increased drainage from his bilateral diabetic foot ulcers but does report continued odor. Notes a large amount of callous growth. Wound culture from last week showed MSSA and Diphtheroids. He has been applying topical gentamicin. 12/03/17. Seen by Mitch Cota PA-C. The patient reports increased drainage and odor from his bilateral diabetic foot ulcers. He continues to have elevated blood sugars. 11/26/17. Seen by Mitch Cota PA-C. The patient reports that he has decreased his usage of marijuana which he uses for recreation and to treat his neuropathy. He has not had a ground level fall since decreasing his usage. His blood sugars remain >150 and his ulcers' drainage is stable. 11/20/17. Seen by Mitch Cota PA-C. The patient reports no increase in his ulcer drainage from his bilateral lower extremity diabetic ulcers. He has not scheduled an appointment to see his PCP to address his consistently high blood sugars. 11/13/17. Seen by Mitch Cota PA-C. The patient reports stable drainage from his diabetic foot ulcers and continued difficulty keeping his blood sugars below 150. He also reports not wearing his diabetic shoes when at home. 11/09/17. Seen by Mitch Cota PA-C. The patient reports high blood sugars again this week. He does not report increased drainage though he notes callous formation continues to happen quickly between visits. 11/06/17. Seen by Dr. Howe. The patient does not report increased drainage associated with the chronic bilateral diabetic foot ulcers since the last visit. 11/02/17. Seen by Mitch Cota PA-C. The patient reports no increased drainage from his bilateral diabetic foot ulcers. He is not surprised that his blood sugar is low this morning as he did not eat dinner yesterday or breakfast today, citing mild GI discomfort. 10/30/17. Seen by Dr. Howe. The patient missed a few appointments recently due to our facility power outage however he does not report increased drainage or other acute issues regarding his bilateral first MTPJ plantar foot diabetic ulcers. 10/23/17. Seen by Mitch Cota PA-C. The patient reports that he did not take his insulin, or eat this morning. Drainage from his diabetic foot ulcers has been stable. 10/15/17. Seen by Mitch Cota PA-C. The patient reports high blood sugars this week and stable drainage from his foot ulcers. 10/13/17. Seen by Dr. Howe. The patient does not report increased drainage associated with the bilateral plantar foot diabetic ulcers since his last visit. 10/01/17. Seen by Dr. Howe. The patient does not report increased drainage associated with either left or right plantar foot diabetic ulcers since his last visit. 10/01/17. Seen by Dr. Howe. The patient does not report increased drainage associated with either left or right plantar foot diabetic ulcers since his last visit. 09/28/17. Seen by Dr. Howe. The patient does not report increased drainage associated with either left or right plantar foot diabetic ulcers since his last visit. He has been offloading as recommended as well. 09/24/17. Seen by Dr. Howe. The patient reports some increased drainage associated with the right chronic diabetic foot ulcer but none with the left chronic diabetic foot ulcer since his last visit. His blood sugars have been well controlled and he does not report pain in either feet or fevers or feeling unwell. He had been seen twice weekly due to the recent deterioration of the right foot ulcer and need for frequent debridement of the periulcer callus. 09/16/17. Seen by Dr. Howe. The patient does not report significant drainage associated with the bilateral plantar foot diabetic ulcers since last visit and his blood sugars are well controlled over the past week. 09/11/17. Seen by Dr. Howe. The patient states that the right foot diabetic ulcer bled significantly earlier this week when he got out of the shower. He had his INR checked yesterday and it was 3.5. He does not report increased drainage otherwise from either the left or right foot diabetic ulcers since his last visit. He's been seen as twice weekly for the past 2 weeks due to the very heavy accumulation of callus associated with the right foot ulcer. 09/08/17. Seen by Dr. Howe. The patient does not report increased drainage associated with bilateral foot diabetic ulcers since his last visit. 09/04/17. Seen by Dr. Howe. The patient does not report significant drainage associated with the bilateral plantar foot diabetic ulcers since last visit and his blood sugars are well controlled over the past week. 08/31/17. Seen by Dr. Howe. The patient does not report increased drainage associated with the bilateral plantar foot diabetic ulcers since his last visit and he continues on doxycycline for the positive right foot ulcer wound culture. His blood sugars have been well- controlled for the past week and he has had no further episodes of hypoglycemia. 08/26/17. Seen by Dr. Howe. The patient is now on doxycycline resistant MSSA positive wound culture taken from his right diabetic foot ulcer and does not report other side effects. He has picked up his new diabetic shoes and is wearing them as recommended. His blood sugar today is 58 in clinic and he has recently had his short-acting insulin increased by his primary care provider due to frequent episodes of hyperglycemia. He is scheduled to see his PCP again tomorrow to discuss the changes. 08/18/17. Seen by Mitch Cota PA-C. The patient reports a foul odor from his bilateral foot ulcers. He reports that he is feeling much better after an ER trip for hypoxia and his recent O2 saturation readings have been 100%. 08/06/17. Seen by Dr. Howe. The patient reports feeling unwell along with progressive shortness of breath while at rest over the past week. He says he had a low- grade fever at home today and staff report is O2 sats in low 90s upon arrival. He has a history of COPD also with possible admission for pneumonia within the past year. He is here for review of chronic diabetic foot ulcers that have been relatively stable for the past few weeks. 07/28/17. Seen by Mitch Cota PA-C. The patient reports increased drainage and bleeding from his diabetic foot ulcers. 07/20/17. Seen by Mitch Cota PA-C. The patient reports no increase in ulcer drainage since his last evaluation. 07/16/17. Seen by Mitch Cota PA-C. The patient has recently been in hospital where he had a NON-STEMI. He reports a reduction in drainage and wound odor after starting Augmentin. 07/01/17. Seen by Dr. Howe. The patient does not report significant drainage associated with the chronic bilateral plantar foot diabetic ulcers since his last visit. He will be picking up his new diabetic shoes today noting his partial right lateral foot amputation and multiple bilateral toe amputations plus Charcot deformity of both feet are contributing significantly to the recurrent heavy callus formation in the apollo-ulcer areas. He also states that he has not been covering his feet when he is in the shower despite our recommendation to do so. 06/19/17. Seen by Dr. Howe. The patient does not report significant drainage associated with the chronic bilateral plantar MTPJ diabetic ulcers since his last visit. Of note , the patient's blood sugar is 42 in clinic and was 35 earlier this morning. He's mildly symptomatic and is with his son who states the patient's food intake has been a bit less than usual due to limited funds at the end of the month. The patient also admits to trying to keep his blood sugars below 140 at all times and has had the problem of hypoglycemia in our clinic a number of times over the past year. 06/12/17. Seen by Dr. Howe. The patient does not report significant drainage associated with the chronic bilateral plantar MTPJ diabetic ulcers since his last visit. 06/05/17. Seen by Dr. Howe. The patient does not report significant drainage associated with the chronic bilateral plantar MTPJ diabetic ulcers since his last visit. He continues on Augmentin based on the recent wound culture and does not report adverse side effects. He also was seen by Dr. Garcia and his new diabetic shoes have been ordered noting his significant history of right lateral foot amputation and multiple toe amputations plus bilateral Charcot deformities. 05/29/17. Seen by Dr. Howe. The patient's wound culture from 2 days ago of a new right foot diabetic ulcer grew Streptococcus as well as Staph. He does not report increased drainage from this ulcer nor the chronic left foot diabetic ulcer. He is also not yet been seen by podiatry although we did send the referral over a couple weeks ago. His blood sugars continue to be well controlled and of note he has had extensive amputations of both the lateral aspect of the right foot as well as toes on both feet which has contributed significantly to recurrent callus and diabetic ulcer formation. 05/27/17. Seen by Mitch Cota PA-C. The patient reports a new ulcer to his right great toe that he believes has been continuously present for about a week. He denies any trauma to the area though states he may have been walking more lately. He is insensate and notes no pain, though he has seen purulent drainage in the area and notes a foul odor. 05/12/17. Seen by Dr. Howe. The patient does not report significant drainage associated with the chronic left plantar foot diabetic ulcer and he notes that heavy callus again has formed on the right plantar foot surface at the site of his recently healed diabetic ulcer. He has severe bilateral Charcot deformities along with multiple toe amputations that are contributing significantly to health information and the refractory and recurrent nature of his diabetic foot ulcers. He's also asked for us to address his toe nails today as it's been weeks since they've been trimmed. 05/05/17. Seen by Dr. Howe. The patient presents today with low blood sugars in the 40's and states he is feeling unwell in the waiting room. Upon my review he is lucid and eating and his blood sugars have increased into the 50s. He does not report any new problems regarding his chronic left foot diabetic ulcer and states that he has not discussed his hypoglycemia with his primary care provider yet despite having a number of episodes throughout the month. 04/28/17. Seen by Dr. Howe. The patient reports recurrence of his left plantar foot diabetic ulcer over the past week along with some new drainage that's quite malodorous. He does not report pain in the foot nor fevers nor any acute issues regarding his right lateral foot diabetic ulcer. He states his blood sugars continue to be well controlled with most below 120. 04/21/17. Seen by Dr. Howe. The patient does not report pain or drainage associated with the chronic right foot diabetic ulcers since his last visit. 04/14/17. Seen by Dr. Howe. The patient does not report pain or drainage associated with the chronic right foot diabetic ulcers since his last visit. His work diabetic shoe as recommended noting he is a partial right foot and right second toe amputations along with a significant Charcot deformity. 04/07/17. Seen by Dr. Howe. The patient does not report significant drainage or pain associated with the chronic right lower leg diabetic ulcers since his last visit. He snoring softly and she was recommended and reports his blood sugars have been well controlled. Of note, his significant deformity of the right foot including partial lateral amputation as well as second toe amputation and a significant Charcot deformity. 04/02/17. Seen by Dr. Howe. The patient reports that a coin accidentally fell into his right lower leg total contact cast a couple days ago. The staff found a johnson upon removing the cast as well as a new ulcer over the lateral aspect of the right foot. The patient does not report pain at the site nor does staff report significant drainage associated with new ulcer nor the chronic right plantar foot diabetic ulcer. The patient's blood sugars continue to be well controlled and he has no other acute complaints at this time. 03/28/17. Seen by Mitch Cota PA-C. The patient's recent wound culture demonstrated no growth. He has not noted increased drainage since his last evaluation. 03/23/17. Seen by Mitch Cota PA-C. The patient reports no increase in right foot ulcer drainage since his last evaluation. In addition his wound culture demonstrated no growth. 03/17/17. Seen by Dr. Howe. The patient does not report increased drainage associated with the chronic right first MTPJ diabetic ulcer.He completed his course of antibiotics that was treating the recent positive wound culture and does not report adverse side effects. He continues offload with a surgical shoe as well. 03/09/17. Seen by Dr. Howe. The patient does not report pain or significant drainage associated with the recurrent right foot diabetic ulcer. His culture of the ulcer was positive for a staph organism and Acinetobacter however he's not yet been started on antibiotics. He states his blood sugars continue to be well-controlled with most below 150. 03/02/17. Seen by Mitch Cota PA-C. The patient reports no improvement in drainage from his diabetic ulcer of the right foot. He has noted odor at times coming from the ulcer. 02/23/17. Seen by Mitch Cota PA-C. The patient reports no increase in drainage from his diabetic ulcer of the right foot. 02/09/17. Seen by Mitch Cota PA-C. The patient reports that he has just begun taking Bactrim for his infection of his right foot diabetic ulcer. He reports continued purulent drainage and odor. 02/02/17. Seen by Mitch Cota PA-C. The patient returns to our clinic with a new ulcer of his right first metatarsal head. He reportedly smacked his foot hard on the floor, creating this ulcer, in an attempt to stop an episode of neuropathy. 11/10/16. Seen by Mitch Cota PA-C. The patient returns for evaluation of his recently healed ulcer, fearing that it is open again. He has not seen liquid drainage but fears it is draining under the callous. 11/04/16. Seen by Mitch Cota PA-C. The patient does not report any difficulties with his TCC this week. 10/24/16. Seen by Dr. Howe. The patient does not report any problems regarding his TCC and staff do not repot significant drainage on the dressing overlying the left plantar foot diabetic ulcer. His blood sugars remain well controlled with most below 150. 10/20/16 Seen by Mitch Cota PA-C. The patient is here for placement of a TCC to offload his left plantar foot diabetic ulcer. He notes that the drainage from his ulcer has soaked through the TCC under-layers and almost soaked through the cast. 10/15/16. Seen by Dr. Howe. The patient tolerated his TCC with minimal discomfort noting mild pain in the left 1st toe. The staff do not report significant drainage associated with the chronic left plantar foot diabetic ulcer and he states his blood sugars are mostly below 150. He's now been placed in a TCC to optimize offloading needed to accommodate for the left foot Charcot deformity that's lead to recurrent heavy callus formation in the periulcer area. 10/13/16 Seen by Mitch Cota PA-C. The patient reports no increase in drainage from his left foot diabetic non-pressure ulcer since his last evaluation. 09/29/15 Seen by Mitch Cota PA-C. The patient reports no increase in drainage from his chronic left foot diabetic ulcer. He does voice frustration that his wound is taking so long to heal. 09/19/16. Seen by Dr. Howe. The patient does not report increased drainage or other acute issues regarding his chronic left plantar foot diabetic ulcer since his last visit. 09/12/16. Seen by Dr. Howe. The patient does not report significant drainage associated with the chronic left plantar foot diabetic ulcer over the past week. He's applying Kerasal to the periwound callus as recommended and has limited his walking considerably, in addition to wearing an offloading shoe, to minimize callus formation. His blood sugars also remain well controlled with most below 150 and he continues on Bactrim for an infection of the ulcer without reporting adverse side effects. 09/05/16. Seen by Dr. Howe. The patient returns to clinic with recurrent of his left plantar foot diabetic ulcer that he states reopened about 2 weeks ago. He was placed on Keflex by his PCP yesterday due to the appearance of the ulcer and significant drainage. He states his blood sugars are well controlled and he limits his walking to help facilitate offloading. 07/28/16. Seen by Dr. Howe. The patient does not report significant drainage associated with the chronic left plantar foot diabetic ulcer over the past week. He's applying Kerasal to the periwound callus as recommended and states his blood sugars are consistently below 150. He does report ongoing nausea for the past few weeks and states he's on 3 nausea medications but does not know what's causing it. He's working with his PCP on this problem. 07/15/16 Seen by Mitch Cota PA-C. The patient reports no fever chills or pain from his left foot diabetic ulcer since his last evaluation. 07/10/16. Seen by Dr. Howe. The patient does not report significant drainage associated with the chronic left plantar foot diabetic ulcer over the past week. He's applying Kerasal to the periwound callus as recommended and has limited his walking considerably, in addition to wearing an offloading shoe, to minimize callus formation. 07/08/16 Seen by Mitch Cota PA-C. The patient reports no increase in pain or drainage from his ulcer, though he does report nausea and vomiting. After further review, it appears that his PPI prescription has run out and he stopped it abruptly. He has not had associated fever, chills or lower GI symptoms. His blood sugars have reportedly been above 150 this week. The patient reports that he still has problems with callous formation on his feet and will be seeing podiatry. 07/04/16. Seen by Dr. Howe. The patient does not report significant drainage associated with the chronic left plantar foot diabetic ulcer since his last visit. He does report significant nausea and vomiting over the past week however but does not report fever, cough, or other specific symptoms and feels the nausea has started to improve as of yesterday. He states his blood sugars have been well controlled with most below 150 and he's on Augmentin for the recent MSSA and Strep positive wound culture. He's also been applying Kerasal to the periwound callus as recommended and has been limited in his walking the past week due to illness. 06/23/16 Seeb by Mitch Cota PA-C. The patient reports that he believes he has an infection in his foot because his dog has been sniffing and licking his open ulcer. He believes his dog has a nose for infection. He reports a continuous, strong, foul odor from his left plantar foot ulcer for the past 3 days with an associated increase in drainage. In addition he has not been offloading his foot as instructed and is going barefoot at home. 06/16/16 Seen by Mitch Cota PA-C. The patient reports that he is walking barefoot in the house and only wears shoes outside the house. His left foot diabetic ulcer drainage has been stable. 06/02/16 Seen by Mitch Cota PA-C. The patient reports that he is due to have a new orthotic fitted for his deformed left foot to further offload his chronic left foot ulcer. He reports stable drainage from this ulcer. 05/27/16 Seen by Mitch Cota PA-C. The patient reports that he now has a new wound near his chronic left plantar foot diabetic ulcer. The new wound began spontaneously and was noted today. His chronic ulcer has had stable drainage. 05/19/16. Seen by Dr. Howe. The patient does not report significant drainage associated with the chronic left plant foot diabetic ulcer over the past week and he states his blood sugars are well controlled with most below 150. 05/12/16. Seen by Dr. Howe. The patient reports some new pain along the right foot surgical scar but no swelling or drainage from the site. He does not recall injuring the foot and feels he may have been more active over the past week. He does not report significant or drainage associated with the left plantar foot diabetic ulcer and states he's not been able to check his blood sugars due to the fact he ran out of glucometer strips this past week. His blood sugar today is 280. 04/11/16. Seen by Dr. Howe. The patient does not report pain or drainage associated with the chronic right lateral foot diabetic ulcer of the past week. He states his blood sugars are consistently below 150 and he is wearing his offloading shoe is recommended. 04/04/16. Seen by Dr. Howe. 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 He states his blood sugars are mostly below 150 and he's offloading using a surgical offloading shoe. He's now off of antibiotics and is here today with his granddaughter who's assisting with his care. 03/31/16 Seen by Mitch Cota PA-C. The patient has returned from [facility] where he had a 4th ray amputation performed to his right foot. He reports that he was supposed to have follow up appointments with surgery, cardiology and wound care but has not attended any of these appointments due to transportation difficulties. He is unsure of when his sutures are supposed to be removed. 02/28/16 Seen by Mitch Cota PA-C. The patient was seen at [facility] and evaluated by Dr. Monae on an urgent basis as arranged by Dr. Howe at his last visit. The patient reports that Dr. Monae wanted to urgently take him to surgery but the patient would prefer to have Dr. Garcia do it and refused admission to the hospital. 02/21/[address] Howe. The patient does not report pain or significant drainage associated with the Alonzo grade 3 right lateral foot diabetic ulcer and he saw Dr. Garcia , podiatry, this morning who reportedly states she's not able to perform any additional debridement until his right leg vascular status is further evaluated. He had an arterial Doppler scheduled yesterday however both the patient and his son state they were unaware of the appointment. He started taking his Augmentin, which is treating the MSSA and Strep viridans culture from 02/15/16, following the last visit as recommended, states his blood sugars have been consistently below 150 over the past week, and he's offloading by wearing a surgical shoe and significantly limiting his walking. Of note, he's still on supplemental oxygen following his recent hospital discharge and gets short of breath on minimal exertion. Please see my note below from his last visit regarding details of the admission and amputation. 02/15/[address] Howe. The patient does not report pain associated with the right lateral foot diabetic ulcer. He was discharged 4 days ago following a partial ray amputation of the 5th toe and MT due a progressive foot infection that he states occurred over about 2 days prior to being admitted to the hospital. His wound culture on arrival to the ER was polymicrobial and reported on Group C Strep. He was treated with IV Zosyn during the admission and prescribed Augmentin on discharge however he's not yet picked up the prescription. His blood sugars have been relatively well controlled with most below 150 since discharge. Of note, he also had a non-ST elevation ND post-operatively, acute on chronic renal failure with a Cr of 1.8 on discharge, and acute respiratory failure and continues on supplemental oxygen. 12/27/[address] Howe. The patient does not report drainage or pain associated with the chronic right plantar foot diabetic ulcer over the past week. He's not been applying Kerasal to the associated callus as recommended however he does not have diabetic shoes and a new AFO that he's been wearing. His blood sugars also remain relatively well controlled below 150 consistently. 12/06/[address] Howe. The patient does not report pain or significant drainage from the chronic right plantar foot diabetic ulcer. His blood sugars remain well controlled around 120 and he's now wearing his new diabetic shoes and offloading by limiting his walking significantly. He's also applying Kerasal daily to the right foot calluses as recommended. 11/29/[address] Howe. The patient does not report significant drainage from the chronic right plantar foot diabetic ulcer and he states his blood sugars remain well controlled below 150. He's also wearing his diabetic shoes now and limiting his walking to facilitate offloading. 11/23/[address] Howe. The patient reports moderate drainage but no pain associated with the chronic right plantar foot diabetic ulcer. He continues on doxycycline for a polymicrobial positive wound culture and he states his blood sugars remain well controlled with most below 120. 11/15/[address] Howe. The patient's wound culture from the last visit grew Enterobacter, Staph, and group G Strep however he's not yet picked up his prescription for doxycycline. He has at least moderate serosanquinous drainage on the dressing and states he's been a bit more active this past week as his son has been sick and unable to do the shopping. His blood sugar was also elevated yesterday near 200 but has been relatively well controlled prior to that. 11/08/15 Seen by Mitch Cota PA-C. The patient reports that his son is sick and he has been up on his feet taking care of him and has been unable to stay off of his feet. He has noted more drainage from his right plantar foot diabetic ulcer in the past few days. He also reports that his current shoes with inserts are making a large callous on his right heel and he doesn't feel that they offload his ulcer, so he has been trying to walk on the lateral edge of his right foot to offload his ulcer, and now is having lateral right foot pain as a result. 11/01/[address] Howe. The patient admits to being more active over the past two weeks but states there's only been very minimal drainage from the right plantar foot diabetic ulcer. His blood sugars also remain well controlled below 150 consistently. 10/18/[address] Howe. The patient does not report drainage from the right foot plantar diabetic ulcer however he states he has been more active the past week in terms of walking. His blood sugars also remain well controlled below 150. 10/11/[address] Howe. The patient does not report pain or drainage associated with the right plantar foot nor heel diabetic ulcers. 10/04/[address] Howe. The patient does not report drainage from the right plantar foot diabetic ulcer and he continues to use Kerasal daily for the significant right heel callus. His blood sugars are also well controlled below 120 consistently. 09/27/[address] Howe. The patient reports only minimal drainage from the right plantar foot diabetic ulcer and states his blood sugars continue to improve with most between 120 and 180. He's also applying Kerasal to the bilateral foot calluses daily as we've requested. 09/19/[address] Howe. The patient reports significantly decreased drainage from the right plantar foot diabetic ulcer and he'll complete his course of levofloxacin today that treating the polymicrobial wound culture from 09/04/15. His blood sugars are also much better controlled over the past week with most around 150 and very few over 200. 09/12/[address] Howe. The patient continues to report significant drainage from the right plantar diabetic foot ulcer and his wound culture from 09/04/15 grew Strep , Providencia, and Neisseria species. He's now on levofloxacin and does not report adverse effects. He's also no longer experiencing severe hypoglycemic episodes and is working closely with is PCP on adjusting his insulin regimen. His blood sugars due tend to remain over 200 however. 09/07/[address] Howe. The patient continues to report blood sugars as low as the 40's since our visit last week. Regarding his foot ulcers, he reports continued foul smelling drainage from the right foot diabetic ulcer but none from right heel or left foot diabetic ulcer. His blood sugars also may be as high as 300 and he states he's compliant with his diabetes medication regimen and will require as much as 30-40 units of short acting insulin on occasion. He does not report pain in the feet nor fevers or other systemic symptoms. 08/31/[address] Howe. The patient is new to our clinic. On arrival he was not feeling well and was tremulous. The MA checked his blood sugar and is registered 34 which is the lowest the glucometer would read. I spoke with him and he reported feeling very unwell at which time he was urgently transferred to the ER. Of note, he was in the clinic to review bilateral diabetic foot ulcers. He'd also recently lost a son and has been very upset the past week according to staff. Past Medical History This information was obtained from the patient Patient has a medical history of: Chronic Obstructive Pulmonary Disease (COPD) Type II Diabetes (A1c 7.4 on 11/12/2015) PAD Peripheral neuropathy Hypoglycemia CVA Diabetic foot ulcer (Right plantar 1st MTPJ, Alonzo grade II) Coronary Artery Disease (CAD) (s/p ND during admission on 02/04/2016) Lumbar strain CHF Hyperlipidemia CKD stage 3 Gout Diabetic foot ulcer - 02/04/2016 (right lateral foot s/p partial ray amputation; Alonzo grade 3; MSSA and Strep viridans cultured) Complaints and Symptoms This information was obtained from the patient Patient complains of: General Notes: I have reviewed and concur with the Review of Systems and Past Family Social History documents completed by the clinician, I have reviewed and concur with the Wound Assessment document completed by the clinician Cardiovascular (Central): Dyspnea on Exertion Ear/Nose/Mouth/Throat: Hearing Loss / Aid Integumentary (Hair/Skin/Nails): Open Sore Musculoskeletal: Assistive Devices, Deformities Neurological: Loss of Protective Sensation Prior Wound History: Drainage, Erythema, Malodor Patient denies complaints or symptoms related to: Cardiovascular (Central/Peripheral): Intermittent Claudication, Lower extremity (leg) resting pain Constitutional Symptoms (General Health): Chills, Fever Gastrointestinal (GI): Nausea / Vomiting, Stomach/abdominal pain Hematologic/Lymphatic: Bleeding / Clotting Disorders, Bleeding Tendency Musculoskeletal: Muscle Weakness Prior Wound History: Bleeding, Pain Psychiatric: Anxiety, Memory Loss Respiratory: Oxygen Use, Shortness of Breath Additional Information Does patient have a history of Cancer? Yes? Complete all questions.: Yes Location of Cancer: Skin cancer Patient underwent Radiation Treatment? If yes, answer question below.: No OBJECTIVE Constitutional BP elevated; Afebrile; Alert and in no distress. Well developed. Alert. Clean appearing.. Height/Length: 72 in (182.88 cm), Weight: 235.1 lbs (106.86 kgs), BMI: 31.9, Temperature: 98.1 ?F (36.72 ?C), Pulse: 71 bpm, Respiratory Rate: 18 breaths/min, Blood Pressure: 146/71 mmHg, Capillary Blood Glucose: 278 mg/dl, Pulse Oximetry: 94 %. Vital Signs Notes: Glucose taken in clinic. Ears, Nose, Mouth, and Throat: Moderate hearing deficit. Respiratory: No respiratory distress. Even respirations and without use of accessory muscles.. Cardiovascular: Affected extremity exhibits no peripheral edema or cyanosis, is warm, and is well perfused. Capillary refill is less than 2 seconds. Musculoskeletal: Right lateral foot partial amputation. Integumentary (Hair, Skin) No periwound erythema, warmth, or significant drainage. No periwound rashes appreciated or noted otherwise.. Refer to appropriate clinician wound documentation for this visit; left foot ulcer extends to subcut with base partially covered with pink granulation, remainder fibrin and slough; right foot ulcer healed. Maceration present in the periwound area. Wound #11 Left Metatarsal head first is a chronic Alonzo Grade 1 Diabetic Ulcer and has received a status of Not Healed. Subsequent wound encounter measurements are 2cm length x 1.4cm width x 0.3cm depth, with an area of 2.8 sq cm and a volume of 0.84 cubic cm. Hypergranulation was noted. No tunneling has been noted. No sinus tract has been noted. No undermining has been noted. There is a large amount of serosanguineous drainage noted which has no odor. The patient reports no wound pain due to the wound being insensate. The wound margin is callus. Wound bed has No epithelialization, No eschar, No slough , Yes bright red, pink, spongy granulation. The periwound skin color is normal. The periwound skin exhibited: Callus, Moist , Maceration. The periwound skin did not exhibit: Brawny Induration, Edema, Excoriation, Induration, Crepitus, Fluctuance, Friable, Rash, Dry/Scaly. The temperature of the periwound skin is WNL. Periwound skin does not exhibit signs or symptoms of infection. Local Pulse is Palpable. Wound #12 Right, Plantar Metatarsal head first is a Alonzo Grade 2 Diabetic Ulcer and has received a status of Not Healed. Subsequent wound encounter measurements are 0.1cm length x 0.1cm width with no measurable depth, with an area of 0.01 sq cm . No tunneling has been noted. No sinus tract has been noted. No undermining has been noted. There was no drainage noted. The patient reports no wound pain due to the wound being insensate. The wound margin is callus. Wound bed has Yes epithelialization, No eschar, No slough, No granulation. The periwound skin color is normal. The periwound skin exhibited: Callus. The periwound skin did not exhibit: Brawny Induration, Edema, Excoriation, Induration, Crepitus, Fluctuance, Friable, Rash, Dry/Scaly, Moist, Maceration. The temperature of the periwound skin is WNL. Periwound skin does not exhibit signs or symptoms of infection. Local Pulse is Normal. Neurological: Cranial nerves grossly intact with symmetric function normal by informal observation.. 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 A skin/ subcutaneous tissue level surgical debridement with a total area debrided of 3 sq cm was performed by Nando Howe MD. Subcutaneous was removed along with devitalized tissue: callus and exudate. The following instrument(s) were used: curette. Pain control was achieved using 4% Lido. A time out was conducted prior to the start of the procedure. A moderate amount of bleeding was controlled with pressure. The procedure was tolerated well with a pain level of 0 throughout and a pain level of 0 following the procedure. Post Debridement Measurements: 2cm length x 1.5cm width x 0.4cm depth; with an area of 3 sq cm and a volume of 1.2 cubic cm; Wound #11 (Diabetic Ulcer) is located on the left metatarsal head first. A Total Contact Cast procedure was performed by Nando Howe MD. General Notes: TCC 3 inch applied to left leg as per protocol. Wound #12 Wound #12 (Diabetic Ulcer) is located on the right, plantar metatarsal head first. A non- selective mechanical debridement with a total area debrided of 0.01 sq cm was performed by Nando Howe MD. Non-viable tissue was removed.The procedure was tolerated well with a pain level of 0 throughout and a pain level of 0 following the procedure. Post Debridement Measurements: 0.1cm length x 0.1cm width x 0.1cm depth; with an area of 0.01 sq cm and a volume of 0.001 cubic cm; General Notes: Callus removed. Additional Information Muscle fascia or bone removed and sent to pathology?: No PLAN Wound Orders: Wound #11 Left Metatarsal head first Anesthetic Topical Xylocaine to wound bed. - In clinic only. Cleanser Cleanse Wound: - Normal saline and gauze. May Shower. - Keep covered in shower with cast protector or plastic bag. Dressings Primary dressing: - TCC foam secured with paper tape. Cover and secure with: - Cotton cast padding wrapped around foot and ankle, and foam taped to pacheco to protect himanshu prominences. Off-Loading Total Contact Cast - Applied to left leg. Wound #12 Right, Plantar Metatarsal head first Anesthetic Topical Xylocaine to wound bed. - In clinic only. Cleanser Cleanse Wound: - Normal saline and gauze, may use distilled water at home. May Shower. - Keep covered in shower with cast protector or plastic bag. Additional Orders: Off-Loading Keep weight off: - Both feet as much as possible. Follow-Up Appointments Return Appointment: - - Two days to replace TCC on left leg. Other information: If you develop fever, chills, increased pain, drainage, redness or swelling please call our office. If after hours, respond to the ER. Should you experience any significant changes in your wound(s) or have any questions regarding your home care instructions please contact the wound center @ [phone]. If after hours, contact your primary care physician or go to the hospital emergency room. Scribing Attestation I attest, as the nurse, that I scribed these orders for the physician. 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 I've reviewed the clinician's documentation and agree with the evaluation and plan as written. In addition, the patient's ulcer demonstrates evidence of non-viable devitalized tissue which will continue to benefit from sharp debridement to help promote granulation and expedite healing. Also, we've placed a TCC on the left lower leg today to facilitate better offloading of the 1st MTPJ plantar ulcer now that the right foot ulcer has healed. Electronic Signature(s) Signed By: Date: Nando Howe MD 06/16/2018 13:52:56 Entered By: Nando Howe on 06/16/2018 13:17:05
== END ==
PROVIDERS: Family Provider Physician Assistant Medical; PCP Physician Assistant Medical; Visit Provider Internal Medicine
DX: E11.621 Type 2 diabetes mellitus with foot ulcer (principal); L97.522 Non-pressure chronic ulcer of other part of left foot with fat layer exposed; L84 Corns and callosities; Z48.817 Encounter for surgical aftercare following surgery on the skin and subcutaneous tissue
CPT/HCPCS: 11042

== ENCOUNTER → 2018-06-17 09:15 | Outpatient (CLI) | payer MEDICARE, SELFPAY ==
--- NOTE | 2018-06-17 | OV.WND_ITS ---
Progress Note Details Patient Name: Nick Drake Patient Number: [id number] PatientPatientDate: 06/17/2018 Clinician: Carlyn Hermosillo Clinician Cosigner: Lacy Malone Physician / [employer] Radio Operator: Nando Howe SUBJECTIVE Chief Complaint This information was obtained from the patient Diabetic ulcers to right and left foot. Allergies Minipress (Severity: Severe, Reaction: violent behavior), Vicodin (Severity: Mild, Reaction: itching), nortriptyline (Severity: Moderate), Avandia (Severity: Moderate) HPI This information was obtained from the patient 06/17/18. Seen by Dr. Howe. The patient is now on doxycycline for the recent MSSA and group G Strep positive culture taken from the left foot diabetic ulcer and he does not report adverse side effects. He tolerated the total contact cast that was placed 2 days ago on the left lower leg to help facilitate offloading however there's a small anterior lower leg abrasion. His blood sugar was 50 in clinic this morning and he's had issues with hypoglycemia over the past few months, often related to skipping breakfast. 06/15/18. Seen by Dr. Howe. The patient does not report any complications regarding the right foot total contact cast and the staff do not report increased drainage or other acute issues regarding the bilateral plantar foot diabetic ulcers. 06/08/18. Seen by Dr. Howe. The patient does not report any complications regarding the right foot total contact cast that was placed 7 days ago and the staff do not report increased drainage or other acute issues regarding the bilateral plantar foot diabetic ulcers. 06/01/18. Seen by Dr. Howe. The patient does not report any complications regarding the right foot total contact cast that was placed 7 days ago and the staff do not report increased drainage or other acute issues regarding the bilateral plantar foot diabetic ulcers. 05/25/18. Seen by Dr. Howe. The patient does not report any complications regarding the right foot total contact cast that was placed 7 days ago and the staff do not report increased drainage or other acute issues regarding the bilateral plantar foot diabetic ulcers. 05/18/18. Seen by Dr. Howe. The patient does not report increased drainage associated with the bilateral plantar 1st MTPJ diabetic ulcers since his last visit. He admits thought to not covering the ulcers while he showers despite our recommendation to wear a cast protector and prevent them from getting wet. 05/13/18. Seen by Dr. Howe. The patient does not report any complications regarding the right foot total contact cast that was placed 7 days ago and the staff do not report increased drainage or other acute issues regarding the bilateral plantar foot diabetic ulcers. There is a possible blister noted however over the posterior right heel. 05/06/18. Seen by Dr. Howe. The patient does not report any complications regarding the right foot total contact cast that was placed 2 days ago and the staff do not report increased drainage or other acute issues regarding the bilateral plantar foot diabetic ulcers. 05/03/18. Seen by Dr. Howe. The patient did not make is appointments last week due to a GI issue. He does not report increased drainage associated with the bilateral plantar 1st MTPJ diabetic ulcers since his last visit however and we're planning on placing a TCC to better offload the right foot ulcer today. Of note, he has a partial right lateral foot amputation that's contributing to heavy periulcer callus formation and the refractory nature of the ulcer. 04/23/18. Seen by Dr. Howe. The patient does not report increased drainage associated with the bilateral plantar 1st MTPJ diabetic ulcers since his last visit. He reports being sick over the past week with nausea and vomiting which has mostly resolved as of today. 04/20/18. Seen by Dr. Howe. The patient does not report increased drainage associated with the bilateral plantar 1st MTPJ diabetic ulcers since his last visit. Also, his total contact cast was ordered but is not available today. It's to be placed on the right lower leg to better facilitate offloading in light of his partial right lateral foot amputation that's contributing significantly to callus formation and the refractory nature of the right foot ulcer. He also missed his appointment with cardiology on 04/07 to discuss intervention for his bilateral lower leg PAD which is also complicating his wound healing. 04/13/18. Seen by Dr. Howe. The patient does not report increased drainage associated with the bilateral plantar 1st MTPJ diabetic ulcers since his last visit. He states he's wearing his right lower leg KANATAK boot as recommended which is offloading the ulcer and addressing the partial right foot amputation which contributes considerably to recurrent and heavy callus formation. 04/09/18. Seen by Dr. Howe. The patient does not report increased drainage associated with the bilateral plantar 1st MTPJ diabetic ulcers since his last visit. His blood sugar is 226 today and he admits to eating some candy yesterday. 04/06/18. Seen by Dr. Howe. The patient does not report increased drainage associated with the bilateral plantar 1st MTPJ diabetic ulcers since his last visit. His bilateral arterial Doppler performed in February showed possible clinically significant PAD with a high grade stenosis of the right SFA and possible left common femoral inflow obstruction and bilateral lower leg with monophasic flow noted. He does not report rest pain nor claudication however he' s very limited in his mobility due to the plantar foot diabetic ulcers. 04/02/18. Seen by Dr. Howe. The patient continues to wear his KANATAK boot to offload the right foot 1st MTPJ diabetic ulcer and address the significant deformity associated with the partial lateral foot amputation and he does not report increased drainage associated with this ulcer nor the left plantar foot diabetic ulcer since his last. His wound culture from the last visit grew Staph and group G Strep and he's not currently on antibiotics. 03/30/18. Seen by Dr. Howe. The patient missed his last two appointments and states over the 24 of March he was wearing socks on his deck and noticed bleeding from the bilateral diabetic foot ulcers. His blood sugars are over 400 today and he's run our of insulin and glucose strips. He does not report pain associated with the ulcers and notes he's not wearing his KANATAK boot on the right foot at all times as recommended. He has a right partial foot amputation and Charcot deformity of both feet. 03/22/18. Seen by Dr. Howe. The patient continues to wear his KANATAK boot to offload the right foot 1st MTPJ diabetic ulcer and address the significant deformity associated with the partial lateral foot amputation and he does not report increased drainage associated with this ulcer nor the left plantar foot diabetic ulcer since his last. 03/15/18. Seen by Mitch Cota PA-C. The patient reports that he is compliant with his KANATAK boot but notes increased bleeding and drainage seen in the boot. 03/11/18. Seen by Mitch Cota PA-C. The patient reports stable drainage from his diabetic foot ulcers. His blood sugars continue to be above 150 this week. 03/04/18. Seen by Dr. Howe. The patient continues to wear his KANATAK boot to offload the right foot 1st MTPJ diabetic ulcer and address the significant deformity associated with the partial lateral foot amputation and he does not report increased drainage associated with this ulcer nor the left plantar foot diabetic ulcer since his last. He recently completed a course of doxycycline to treat a group G Strep positive culture and is applying iodosorb to the ulcers to help manage the persistent drainage. 03/01/18. Seen by Dr. Howe. The patient continues to wear his KANATAK boot to offload the right foot 1st MTPJ diabetic ulcer and address the significant deformity associated with the partial lateral foot amputation. He does not report significant drainage associated with this ulcer nor the left plantar foot diabetic ulcer since his last. 02/25/18. Seen by Dr. Howe. The patient will complete his course of doxycycline today that's treating the Staph and group G Strep positive culture taken from the right foot diabetic ulcer. He does not report adverse side effects and nor significant drainage from the ulcer or the left plantar foot diabetic ulcer. 02/22/18. Seen by Dr. Howe. The patient is now on doxycycline for the Staph and group G Strep positive culture taken from the right foot diabetic ulcer last week. He notes some bloody drainage from this site on his dressing today but feels this ulcer and the left foot diabetic ulcer have improved over the past few week. He's offloading the right foot which has a partial lateral amputation using his KANATAK boot as recommended however he's not using a frame walker. He does not report adverse side effects of the antibiotics nor other acute issues today. 02/18/18. Seen by Dr. Howe. The staff report increased drainage associated with both plantar foot 1st MTPJ diabetic ulcers and the patient reports a malodor from the dressings over the past week. He does not report fevers, feeling unwell, or pain in the feet but states his blood sugars have been a bit elevated in the 180s. He's also wearing his KANATAK boot as recommended on the right foot but states he does not have enough room in his house to use a knee scooter and does not use his frame walker. 02/11/18. Seen by Dr. Howe. The patient continues to wear his KANATAK boot to offload the right foot 1st MTPJ diabetic ulcer and address the significant deformity associated with the partial lateral foot amputation. He does not report significant drainage associated with this ulcer nor the left plantar foot diabetic ulcer since his last visit however the nurse states the mole skin dressing was applied inappropriately over the left foot ulcer and was overlying the ulcer itself and soaked with drainage. 02/04/18. Seen by Dr. Howe. The patient continues to wear his KANATAK boot to offload the right foot 1st MTPJ diabetic ulcer and address the significant deformity associated with the partial lateral foot amputation. He does not report significant drainage associated with this ulcer nor the left plantar foot diabetic ulcer since his last visit. 01/28/2018. Seen by Dr. Howe. The patient is now wearing his KANATAK boot to offload the right foot 1st MTPJ diabetic ulcer and address the significant deformity associated with the partial lateral foot amputation. He does not report significant drainage associated with this ulcer nor the left plantar foot diabetic ulcer since his last visit. 01/26/18. Seen by Dr. Howe. The patient states he has been without his insulin for over a week which is likely the cause of his blood sugars being around 400 over the past few visits. He has also not contacted his orthotics provider regarding the offloading KANATAK boot to wear on the right foot noting his significant deformity caused by the partial lateral foot amputation. He has not report increased drainage or other acute changes regarding his bilateral diabetic foot ulcers and will complete his course of doxycycline its treated the recent MSSA positive culture tomorrow. He also reports nausea and one episode of emesis earlier today but not other acute issues. 01/21/2018. Seen by Dr. Howe. The patient arrived today with his right foot dressing upside down. His blood sugars are also over 400. The patient does not report increased drainage associated with the right or left diabetic foot ulcers however states his neuropathic pain has been significant over the past 2 days. He also is going to pickle cutter his KANATAK boot today to help facilitate offloading of the right foot diabetic ulcer noted in he also has a partial lateral amputation on his foot that is contributed significantly 2. Ulcer callus formation. He also continues on doxycycline for he recent MSSA positive wound culture. 01/18/2018. Seen by Dr. Howe. The patient's wound culture from the left foot diabetic ulcer grew MSSA resistant to gentamicin. He is not currently on oral antibiotics and does not report increased drainage from either left right foot diabetic ulcers and is still waiting for his KANATAK boot to be available to help facilitate better offloading of the right foot noting his partial lateral right foot amputation and severe Charcot deformity. 01/14/18. Seen by Dr. Howe. The patient continues to report moderate drainage from the right and left diabetic foot ulcers over the past few days and he's seen his thoracic medicine physician who's ordered a KANATAK boot for the right foot which should be available next week. He has severe bilateral Charcot deformities and partial right lateral foot amputation that contributes to the refractory nature of the ulcers and very heavy callus formation. 01/12/18. Seen by Dr. Howe. The patient reports moderate drainage from the right and left diabetic foot ulcers and he's seen his thoracic medicine physician who's ordered a KANATAK boot for the right foot. He has bilateral partial lateral foot amputations which have resulted in refractory calluses of the bilateral plantar MTPJ's and associated DFU's. His blood have been well controlled and his recent hypoglycemic episodes have resolved. 01/07/18. Seen by Dr. Howe. The patient missed his last 2 appointments due to a GI illness last week and she reports some pain in the lateral aspect of the right forefoot but no increased drainage, swelling, or other acute changes of the diabetic foot ulcer. He also does not report any acute issues regarding the left diabetic foot ulcer. Of note, he has significant deformities of both feet due to partial amputations which have each contributed significantly to severe callus formation and the refractory nature of the ulcers. 01/01/18. Seen by Dr. Howe. The patient continues on clindamycin for the chronic right diabetic foot ulcer infection and it is not reported adverse side effects. He also does not report significant drainage associated with either left or right diabetic foot ulcer since his last visit. 12/28/17. Seen by Dr. Howe. The patient does not report increased drainage associated with either right or left foot diabetic ulcers since his last visit. He continues on clindamycin without reporting adverse side effects to treat the chronic right ulcer infection and his blood sugars are well controlled. Of note, he has been attending clinic twice weekly to optimize management of his recurrent and severe apollo-ulcer calluses that are in part due to his severe Charcot deformities and bilateral partial foot amputations. 12/21/17. Seen by Dr. Howe. The patient reports some drainage associated with the right foot diabetic ulcer since his last visit but none associated with the left foot diabetic ulcer. He completed his course of doxycycline today is treating the recent MSSA positive wound culture and is reported adverse side effects, fevers, feeling unwell. He states his blood sugars continue to be well controlled below 180. 12/15/17. Cinthia Howe. The patient's wound culture from the left plantar foot diabetic ulcer his last visit grew MSSA resistant to gentamicin. He does not report increased drainage or pain from either diabetic foot ulcers since his last visit. 12/10/17. Seen by REN Olea. The patient does not report increased drainage from his bilateral diabetic foot ulcers but does report continued odor. Notes a large amount of callous growth. Wound culture from last week showed MSSA and Diphtheroids. He has been applying topical gentamicin. 12/03/17. Seen by Mitch Cota PA-C. The patient reports increased drainage and odor from his bilateral diabetic foot ulcers. He continues to have elevated blood sugars. 11/26/17. Seen by Mitch Cota PA-C. The patient reports that he has decreased his usage of marijuana which he uses for recreation and to treat his neuropathy. He has not had a ground level fall since decreasing his usage. His blood sugars remain >150 and his ulcers' drainage is stable. 11/20/17. Seen by Mitch Cota PA-C. The patient reports no increase in his ulcer drainage from his bilateral lower extremity diabetic ulcers. He has not scheduled an appointment to see his PCP to address his consistently high blood sugars. 11/13/17. Seen by Mitch Cota PA-C. The patient reports stable drainage from his diabetic foot ulcers and continued difficulty keeping his blood sugars below 150. He also reports not wearing his diabetic shoes when at home. 11/09/17. Seen by Mitch Cota PA-C. The patient reports high blood sugars again this week. He does not report increased drainage though he notes callous formation continues to happen quickly between visits. 11/06/17. Seen by Dr. Howe. The patient does not report increased drainage associated with the chronic bilateral diabetic foot ulcers since the last visit. 11/02/17. Seen by Mitch Cota PA-C. The patient reports no increased drainage from his bilateral diabetic foot ulcers. He is not surprised that his blood sugar is low this morning as he did not eat dinner yesterday or breakfast today, citing mild GI discomfort. 10/30/17. Seen by Dr. Howe. The patient missed a few appointments recently due to our facility power outage however he does not report increased drainage or other acute issues regarding his bilateral first MTPJ plantar foot diabetic ulcers. 10/23/17. Seen by Mitch Cota PA-C. The patient reports that he did not take his insulin, or eat this morning. Drainage from his diabetic foot ulcers has been stable. 10/15/17. Seen by Mitch Cota PA-C. The patient reports high blood sugars this week and stable drainage from his foot ulcers. 10/13/17. Seen by Dr. Howe. The patient does not report increased drainage associated with the bilateral plantar foot diabetic ulcers since his last visit. 10/01/17. Seen by Dr. Howe. The patient does not report increased drainage associated with either left or right plantar foot diabetic ulcers since his last visit. 10/01/17. Seen by Dr. Howe. The patient does not report increased drainage associated with either left or right plantar foot diabetic ulcers since his last visit. 09/28/17. Seen by Dr. Howe. The patient does not report increased drainage associated with either left or right plantar foot diabetic ulcers since his last visit. He has been offloading as recommended as well. 09/24/17. Seen by Dr. Howe. The patient reports some increased drainage associated with the right chronic diabetic foot ulcer but none with the left chronic diabetic foot ulcer since his last visit. His blood sugars have been well controlled and he does not report pain in either feet or fevers or feeling unwell. He had been seen twice weekly due to the recent deterioration of the right foot ulcer and need for frequent debridement of the periulcer callus. 09/16/17. Seen by Dr. Howe. The patient does not report significant drainage associated with the bilateral plantar foot diabetic ulcers since last visit and his blood sugars are well controlled over the past week. 09/11/17. Seen by Dr. Howe. The patient states that the right foot diabetic ulcer bled significantly earlier this week when he got out of the shower. He had his INR checked yesterday and it was 3.5. He does not report increased drainage otherwise from either the left or right foot diabetic ulcers since his last visit. He's been seen as twice weekly for the past 2 weeks due to the very heavy accumulation of callus associated with the right foot ulcer. 09/08/17. Seen by Dr. Howe. The patient does not report increased drainage associated with bilateral foot diabetic ulcers since his last visit. 09/04/17. Seen by Dr. Howe. The patient does not report significant drainage associated with the bilateral plantar foot diabetic ulcers since last visit and his blood sugars are well controlled over the past week. 08/31/17. Seen by Dr. Howe. The patient does not report increased drainage associated with the bilateral plantar foot diabetic ulcers since his last visit and he continues on doxycycline for the positive right foot ulcer wound culture. His blood sugars have been well- controlled for the past week and he has had no further episodes of hypoglycemia. 08/26/17. Seen by Dr. Howe. The patient is now on doxycycline resistant MSSA positive wound culture taken from his right diabetic foot ulcer and does not report other side effects. He has picked up his new diabetic shoes and is wearing them as recommended. His blood sugar today is 58 in clinic and he has recently had his short-acting insulin increased by his primary care provider due to frequent episodes of hyperglycemia. He is scheduled to see his PCP again tomorrow to discuss the changes. 08/18/17. Seen by Mitch Cota PA-C. The patient reports a foul odor from his bilateral foot ulcers. He reports that he is feeling much better after an ER trip for hypoxia and his recent O2 saturation readings have been 100%. 08/06/17. Seen by Dr. Howe. The patient reports feeling unwell along with progressive shortness of breath while at rest over the past week. He says he had a low- grade fever at home today and staff report is O2 sats in low 90s upon arrival. He has a history of COPD also with possible admission for pneumonia within the past year. He is here for review of chronic diabetic foot ulcers that have been relatively stable for the past few weeks. 07/28/17. Seen by Mitch Cota PA-C. The patient reports increased drainage and bleeding from his diabetic foot ulcers. 07/20/17. Seen by Mitch Cota PA-C. The patient reports no increase in ulcer drainage since his last evaluation. 07/16/17. Seen by Mitch Cota PA-C. The patient has recently been in hospital where he had a NON-STEMI. He reports a reduction in drainage and wound odor after starting Augmentin. 07/01/17. Seen by Dr. Howe. The patient does not report significant drainage associated with the chronic bilateral plantar foot diabetic ulcers since his last visit. He will be picking up his new diabetic shoes today noting his partial right lateral foot amputation and multiple bilateral toe amputations plus Charcot deformity of both feet are contributing significantly to the recurrent heavy callus formation in the apollo-ulcer areas. He also states that he has not been covering his feet when he is in the shower despite our recommendation to do so. 06/19/17. Seen by Dr. Howe. The patient does not report significant drainage associated with the chronic bilateral plantar MTPJ diabetic ulcers since his last visit. Of note , the patient's blood sugar is 42 in clinic and was 35 earlier this morning. He's mildly symptomatic and is with his son who states the patient's food intake has been a bit less than usual due to limited funds at the end of the month. The patient also admits to trying to keep his blood sugars below 140 at all times and has had the problem of hypoglycemia in our clinic a number of times over the past year. 06/12/17. Seen by Dr. Howe. The patient does not report significant drainage associated with the chronic bilateral plantar MTPJ diabetic ulcers since his last visit. 06/05/17. Seen by Dr. Howe. The patient does not report significant drainage associated with the chronic bilateral plantar MTPJ diabetic ulcers since his last visit. He continues on Augmentin based on the recent wound culture and does not report adverse side effects. He also was seen by Dr. Garcia and his new diabetic shoes have been ordered noting his significant history of right lateral foot amputation and multiple toe amputations plus bilateral Charcot deformities. 05/29/17. Seen by Dr. Howe. The patient's wound culture from 2 days ago of a new right foot diabetic ulcer grew Streptococcus as well as Staph. He does not report increased drainage from this ulcer nor the chronic left foot diabetic ulcer. He is also not yet been seen by podiatry although we did send the referral over a couple weeks ago. His blood sugars continue to be well controlled and of note he has had extensive amputations of both the lateral aspect of the right foot as well as toes on both feet which has contributed significantly to recurrent callus and diabetic ulcer formation. 05/27/17. Seen by Mitch Cota PA-C. The patient reports a new ulcer to his right great toe that he believes has been continuously present for about a week. He denies any trauma to the area though states he may have been walking more lately. He is insensate and notes no pain, though he has seen purulent drainage in the area and notes a foul odor. 05/12/17. Seen by Dr. Howe. The patient does not report significant drainage associated with the chronic left plantar foot diabetic ulcer and he notes that heavy callus again has formed on the right plantar foot surface at the site of his recently healed diabetic ulcer. He has severe bilateral Charcot deformities along with multiple toe amputations that are contributing significantly to health information and the refractory and recurrent nature of his diabetic foot ulcers. He's also asked for us to address his toe nails today as it's been weeks since they've been trimmed. 05/05/17. Seen by Dr. Howe. The patient presents today with low blood sugars in the 40's and states he is feeling unwell in the waiting room. Upon my review he is lucid and eating and his blood sugars have increased into the 50s. He does not report any new problems regarding his chronic left foot diabetic ulcer and states that he has not discussed his hypoglycemia with his primary care provider yet despite having a number of episodes throughout the month. 04/28/17. Seen by Dr. Howe. The patient reports recurrence of his left plantar foot diabetic ulcer over the past week along with some new drainage that's quite malodorous. He does not report pain in the foot nor fevers nor any acute issues regarding his right lateral foot diabetic ulcer. He states his blood sugars continue to be well controlled with most below 120. 04/21/17. Seen by Dr. Howe. The patient does not report pain or drainage associated with the chronic right foot diabetic ulcers since his last visit. 04/14/17. Seen by Dr. Howe. The patient does not report pain or drainage associated with the chronic right foot diabetic ulcers since his last visit. His work diabetic shoe as recommended noting he is a partial right foot and right second toe amputations along with a significant Charcot deformity. 04/07/17. Seen by Dr. Howe. The patient does not report significant drainage or pain associated with the chronic right lower leg diabetic ulcers since his last visit. He snoring softly and she was recommended and reports his blood sugars have been well controlled. Of note, his significant deformity of the right foot including partial lateral amputation as well as second toe amputation and a significant Charcot deformity. 04/02/17. Seen by Dr. Howe. The patient reports that a coin accidentally fell into his right lower leg total contact cast a couple days ago. The staff found a johnson upon removing the cast as well as a new ulcer over the lateral aspect of the right foot. The patient does not report pain at the site nor does staff report significant drainage associated with new ulcer nor the chronic right plantar foot diabetic ulcer. The patient's blood sugars continue to be well controlled and he has no other acute complaints at this time. 03/28/17. Seen by Mitch Cota PA-C. The patient's recent wound culture demonstrated no growth. He has not noted increased drainage since his last evaluation. 03/23/17. Seen by Mitch Cota PA-C. The patient reports no increase in right foot ulcer drainage since his last evaluation. In addition his wound culture demonstrated no growth. 03/17/17. Seen by Dr. Howe. The patient does not report increased drainage associated with the chronic right first MTPJ diabetic ulcer.He completed his course of antibiotics that was treating the recent positive wound culture and does not report adverse side effects. He continues offload with a surgical shoe as well. 03/09/17. Seen by Dr. Howe. The patient does not report pain or significant drainage associated with the recurrent right foot diabetic ulcer. His culture of the ulcer was positive for a staph organism and Acinetobacter however he's not yet been started on antibiotics. He states his blood sugars continue to be well-controlled with most below 150. 03/02/17. Seen by Mitch Cota PA-C. The patient reports no improvement in drainage from his diabetic ulcer of the right foot. He has noted odor at times coming from the ulcer. 02/23/17. Seen by Mitch Cota PA-C. The patient reports no increase in drainage from his diabetic ulcer of the right foot. 02/09/17. Seen by Mitch Cota PA-C. The patient reports that he has just begun taking Bactrim for his infection of his right foot diabetic ulcer. He reports continued purulent drainage and odor. 02/02/17. Seen by Mitch York PA-C. The patient returns to our clinic with a new ulcer of his right first metatarsal head. He reportedly smacked his foot hard on the floor, creating this ulcer, in an attempt to stop an episode of neuropathy. 11/10/16. Seen by Mitch Cota PA-C. The patient returns for evaluation of his recently healed ulcer, fearing that it is open again. He has not seen liquid drainage but fears it is draining under the callous. 11/04/16. Seen by Mitch Cota PA-C. The patient does not report any difficulties with his TCC this week. 10/24/16. Seen by Dr. Howe. The patient does not report any problems regarding his TCC and staff do not repot significant drainage on the dressing overlying the left plantar foot diabetic ulcer. His blood sugars remain well controlled with most below 150. 10/20/16 Seen by Mitch Cota PA-C. The patient is here for placement of a TCC to offload his left plantar foot diabetic ulcer. He notes that the drainage from his ulcer has soaked through the TCC under-layers and almost soaked through the cast. 10/15/16. Seen by Dr. Howe. The patient tolerated his TCC with minimal discomfort noting mild pain in the left 1st toe. The staff do not report significant drainage associated with the chronic left plantar foot diabetic ulcer and he states his blood sugars are mostly below 150. He's now been placed in a TCC to optimize offloading needed to accommodate for the left foot Charcot deformity that's lead to recurrent heavy callus formation in the periulcer area. 10/13/16 Seen by Mitch Cota PA-C. The patient reports no increase in drainage from his left foot diabetic non-pressure ulcer since his last evaluation. 09/29/15 Seen by Mitch Cota PA-C. The patient reports no increase in drainage from his chronic left foot diabetic ulcer. He does voice frustration that his wound is taking so long to heal. 09/19/16. Seen by Dr. Howe. The patient does not report increased drainage or other acute issues regarding his chronic left plantar foot diabetic ulcer since his last visit. 09/12/16. Seen by Dr. Howe. The patient does not report significant drainage associated with the chronic left plantar foot diabetic ulcer over the past week. He's applying Kerasal to the periwound callus as recommended and has limited his walking considerably, in addition to wearing an offloading shoe, to minimize callus formation. His blood sugars also remain well controlled with most below 150 and he continues on Bactrim for an infection of the ulcer without reporting adverse side effects. 09/05/16. Seen by Dr. Howe. The patient returns to clinic with recurrent of his left plantar foot diabetic ulcer that he states reopened about 2 weeks ago. He was placed on Keflex by his PCP yesterday due to the appearance of the ulcer and significant drainage. He states his blood sugars are well controlled and he limits his walking to help facilitate offloading. 07/28/16. Seen by Dr. Howe. The patient does not report significant drainage associated with the chronic left plantar foot diabetic ulcer over the past week. He's applying Kerasal to the periwound callus as recommended and states his blood sugars are consistently below 150. He does report ongoing nausea for the past few weeks and states he's on 3 nausea medications but does not know what's causing it. He's working with his PCP on this problem. 07/15/16 Seen by Mitch Cota PA-C. The patient reports no fever chills or pain from his left foot diabetic ulcer since his last evaluation. 07/10/16. Seen by Dr. Howe. The patient does not report significant drainage associated with the chronic left plantar foot diabetic ulcer over the past week. He's applying Kerasal to the periwound callus as recommended and has limited his walking considerably, in addition to wearing an offloading shoe, to minimize callus formation. 07/08/16 Seen by Mitch Cota PA-C. The patient reports no increase in pain or drainage from his ulcer, though he does report nausea and vomiting. After further review, it appears that his PPI prescription has run out and he stopped it abruptly. He has not had associated fever, chills or lower GI symptoms. His blood sugars have reportedly been above 150 this week. The patient reports that he still has problems with callous formation on his feet and will be seeing podiatry. 07/04/16. Seen by Dr. Howe. The patient does not report significant drainage associated with the chronic left plantar foot diabetic ulcer since his last visit. He does report significant nausea and vomiting over the past week however but does not report fever, cough, or other specific symptoms and feels the nausea has started to improve as of yesterday. He states his blood sugars have been well controlled with most below 150 and he's on Augmentin for the recent MSSA and Strep positive wound culture. He's also been applying Kerasal to the periwound callus as recommended and has been limited in his walking the past week due to illness. 06/23/16 Seeb by Mitch Cota PA-C. The patient reports that he believes he has an infection in his foot because his dog has been sniffing and licking his open ulcer. He believes his dog has a nose for infection. He reports a continuous, strong, foul odor from his left plantar foot ulcer for the past 3 days with an associated increase in drainage. In addition he has not been offloading his foot as instructed and is going barefoot at home. 06/16/16 Seen by Mitch Cota PA-C. The patient reports that he is walking barefoot in the house and only wears shoes outside the house. His left foot diabetic ulcer drainage has been stable. 06/02/16 Seen by Mitch Cota PA-C. The patient reports that he is due to have a new orthotic fitted for his deformed left foot to further offload his chronic left foot ulcer. He reports stable drainage from this ulcer. 05/27/16 Seen by Mitch Cota PA-C. The patient reports that he now has a new wound near his chronic left plantar foot diabetic ulcer. The new wound began spontaneously and was noted today. His chronic ulcer has had stable drainage. 05/19/16. Seen by Dr. Howe. The patient does not report significant drainage associated with the chronic left plant foot diabetic ulcer over the past week and he states his blood sugars are well controlled with most below 150. 05/12/16. Seen by Dr. Howe. The patient reports some new pain along the right foot surgical scar but no swelling or drainage from the site. He does not recall injuring the foot and feels he may have been more active over the past week. He does not report significant or drainage associated with the left plantar foot diabetic ulcer and states he's not been able to check his blood sugars due to the fact he ran out of glucometer strips this past week. His blood sugar today is 280. 04/11/16. Seen by Dr. Howe. The patient does not report pain or drainage associated with the chronic right lateral foot diabetic ulcer of the past week. He states his blood sugars are consistently below 150 and he is wearing his offloading shoe is recommended. 04/04/16. Seen by Dr. Howe. 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 He states his blood sugars are mostly below 150 and he's offloading using a surgical offloading shoe. He's now off of antibiotics and is here today with his granddaughter who's assisting with his care. 03/31/16 Seen by Mitch Cota PA-C. The patient has returned from [facility] where he had a 4th ray amputation performed to his right foot. He reports that he was supposed to have follow up appointments with surgery, cardiology and wound care but has not attended any of these appointments due to transportation difficulties. He is unsure of when his sutures are supposed to be removed. 02/28/16 Seen by Mitch Cota PA-C. The patient was seen at [place] [facility] and evaluated by Dr. Monae on an urgent basis as arranged by Dr. Howe at his last visit. The patient reports that Dr. Monae wanted to urgently take him to surgery but the patient would prefer to have Dr. Garcia do it and refused admission to the hospital. 02/21/[address] Howe. The patient does not report pain or significant drainage associated with the Alonzo grade 3 right lateral foot diabetic ulcer and he saw Dr. Garcia , podiatry, this morning who reportedly states she's not able to perform any additional debridement until his right leg vascular status is further evaluated. He had an arterial Doppler scheduled yesterday however both the patient and his son state they were unaware of the appointment. He started taking his Augmentin, which is treating the MSSA and Strep viridans culture from 02/15/16, following the last visit as recommended, states his blood sugars have been consistently below 150 over the past week, and he's offloading by wearing a surgical shoe and significantly limiting his walking. Of note, he's still on supplemental oxygen following his recent hospital discharge and gets short of breath on minimal exertion. Please see my note below from his last visit regarding details of the admission and amputation. 02/15/[address] Howe. The patient does not report pain associated with the right lateral foot diabetic ulcer. He was discharged 4 days ago following a partial ray amputation of the 5th toe and MT due a progressive foot infection that he states occurred over about 2 days prior to being admitted to the hospital. His wound culture on arrival to the ER was polymicrobial and reported on Group C Strep. He was treated with IV Zosyn during the admission and prescribed Augmentin on discharge however he's not yet picked up the prescription. His blood sugars have been relatively well controlled with most below 150 since discharge. Of note, he also had a non-ST elevation KS post-operatively, acute on chronic renal failure with a Cr of 1.8 on discharge, and acute respiratory failure and continues on supplemental oxygen. 12/27/[address] Howe. The patient does not report drainage or pain associated with the chronic right plantar foot diabetic ulcer over the past week. He's not been applying Kerasal to the associated callus as recommended however he does not have diabetic shoes and a new AFO that he's been wearing. His blood sugars also remain relatively well controlled below 150 consistently. 12/06/[address] Howe. The patient does not report pain or significant drainage from the chronic right plantar foot diabetic ulcer. His blood sugars remain well controlled around 120 and he's now wearing his new diabetic shoes and offloading by limiting his walking significantly. He's also applying Kerasal daily to the right foot calluses as recommended. 11/29/[address] Howe. The patient does not report significant drainage from the chronic right plantar foot diabetic ulcer and he states his blood sugars remain well controlled below 150. He's also wearing his diabetic shoes now and limiting his walking to facilitate offloading. 11/23/[address] Howe. The patient reports moderate drainage but no pain associated with the chronic right plantar foot diabetic ulcer. He continues on doxycycline for a polymicrobial positive wound culture and he states his blood sugars remain well controlled with most below 120. 11/15/[address] Howe. The patient's wound culture from the last visit grew Enterobacter, Staph, and group G Strep however he's not yet picked up his prescription for doxycycline. He has at least moderate serosanquinous drainage on the dressing and states he's been a bit more active this past week as his son has been sick and unable to do the shopping. His blood sugar was also elevated yesterday near 200 but has been relatively well controlled prior to that. 11/08/15 Seen by Mitch Cota PA-C. The patient reports that his son is sick and he has been up on his feet taking care of him and has been unable to stay off of his feet. He has noted more drainage from his right plantar foot diabetic ulcer in the past few days. He also reports that his current shoes with inserts are making a large callous on his right heel and he doesn't feel that they offload his ulcer, so he has been trying to walk on the lateral edge of his right foot to offload his ulcer, and now is having lateral right foot pain as a result. 11/01/[address] Howe. The patient admits to being more active over the past two weeks but states there's only been very minimal drainage from the right plantar foot diabetic ulcer. His blood sugars also remain well controlled below 150 consistently. 10/18/[address] Howe. The patient does not report drainage from the right foot plantar diabetic ulcer however he states he has been more active the past week in terms of walking. His blood sugars also remain well controlled below 150. 10/11/[address] Howe. The patient does not report pain or drainage associated with the right plantar foot nor heel diabetic ulcers. 10/04/[address] Howe. The patient does not report drainage from the right plantar foot diabetic ulcer and he continues to use Kerasal daily for the significant right heel callus. His blood sugars are also well controlled below 120 consistently. 09/27/[address] Howe. The patient reports only minimal drainage from the right plantar foot diabetic ulcer and states his blood sugars continue to improve with most between 120 and 180. He's also applying Kerasal to the bilateral foot calluses daily as we've requested. 09/19/[address] Howe. The patient reports significantly decreased drainage from the right plantar foot diabetic ulcer and he'll complete his course of levofloxacin today that treating the polymicrobial wound culture from 09/04/15. His blood sugars are also much better controlled over the past week with most around 150 and very few over 200. 09/12/[address] Howe. The patient continues to report significant drainage from the right plantar diabetic foot ulcer and his wound culture from 09/04/15 grew Strep , Providencia, and Neisseria species. He's now on levofloxacin and does not report adverse effects. He's also no longer experiencing severe hypoglycemic episodes and is working closely with is PCP on adjusting his insulin regimen. His blood sugars due tend to remain over 200 however. 09/07/[address] Howe. The patient continues to report blood sugars as low as the 40's since our visit last week. Regarding his foot ulcers, he reports continued foul smelling drainage from the right foot diabetic ulcer but none from right heel or left foot diabetic ulcer. His blood sugars also may be as high as 300 and he states he's compliant with his diabetes medication regimen and will require as much as 30-40 units of short acting insulin on occasion. He does not report pain in the feet nor fevers or other systemic symptoms. 08/31/[address] Howe. The patient is new to our clinic. On arrival he was not feeling well and was tremulous. The MA checked his blood sugar and is registered 34 which is the lowest the glucometer would read. I spoke with him and he reported feeling very unwell at which time he was urgently transferred to the ER. Of note, he was in the clinic to review bilateral diabetic foot ulcers. He'd also recently lost a son and has been very upset the past week according to staff. Past Medical History This information was obtained from the patient Patient has a medical history of: Chronic Obstructive Pulmonary Disease (COPD) Type II Diabetes (A1c 7.4 on 11/12/2015) PAD Peripheral neuropathy Hypoglycemia CVA Diabetic foot ulcer (Right plantar 1st MTPJ, Alonzo grade II) Coronary Artery Disease (CAD) (s/p KS during admission on 02/04/2016) Lumbar strain CHF Hyperlipidemia CKD stage 3 Gout Diabetic foot ulcer - 02/04/2016 (right lateral foot s/p partial ray amputation; Alonzo grade 3; MSSA and Strep viridans cultured) Complaints and Symptoms This information was obtained from the patient Patient complains of: General Notes: I have reviewed and concur with the Review of Systems and Past Family Social History documents completed by the clinician, I have reviewed and concur with the Wound Assessment document completed by the clinician Cardiovascular (Central): Dyspnea on Exertion Ear/Nose/Mouth/Throat: Hearing Loss / Aid Integumentary (Hair/Skin/Nails): Open Sore Musculoskeletal: Assistive Devices, Deformities Neurological: Loss of Protective Sensation Prior Wound History: Drainage, Erythema, Malodor Patient denies complaints or symptoms related to: Cardiovascular (Central/Peripheral): Intermittent Claudication, Lower extremity (leg) resting pain Constitutional Symptoms (General Health): Chills, Fever Gastrointestinal (GI): Nausea / Vomiting, Stomach/abdominal pain Hematologic/Lymphatic: Bleeding / Clotting Disorders, Bleeding Tendency Musculoskeletal: Muscle Weakness Prior Wound History: Bleeding, Pain Psychiatric: Anxiety, Memory Loss Respiratory: Oxygen Use, Shortness of Breath Additional Information Does patient have a history of Cancer? Yes? Complete all questions.: Yes Location of Cancer: Skin cancer Patient underwent Radiation Treatment? If yes, answer question below.: No OBJECTIVE Constitutional BP elevated; Afebrile; Alert and in no distress. Well developed. Alert. Clean appearing.. Height/Length: 72 in (182.88 cm), Weight: 235.1 lbs (106.86 kgs), BMI: 31.9, Temperature: 97.3 ?F (36.28 ?C), Pulse: 67 bpm, Respiratory Rate: 18 breaths/min, Blood Pressure: 140/67 mmHg, Capillary Blood Glucose: 50 mg/dl, Pulse Oximetry: 67 %. Vital Signs Notes: Glucose taken in clinic. Glucose was taken again after given snack, 85mg/dl. Dr. Howe aware. Ears, Nose, Mouth, and Throat: Moderate hearing deficit. Respiratory: No respiratory distress. Even respirations and without use of accessory muscles.. Cardiovascular: Affected extremity exhibits no peripheral edema or cyanosis, is warm, and is well perfused. Capillary refill is less than 2 seconds. Gastrointestinal (GI): Obese. Nondistended.. Musculoskeletal: Right lateral foot partial amputation. Integumentary (Hair, Skin) No periwound erythema, warmth, or significant drainage. No periwound rashes appreciated or noted otherwise.. Refer to appropriate clinician wound documentation for this visit; left foot ulcer extends to subcut with base partially covered with pink granulation, remainder fibrin and slough; right foot ulcer healed; abrasion over anterior left lower leg extends to dermis. Moderate amount of callus in the periulcer area. Wound #11 Left Metatarsal head first is a chronic Alonzo Grade 1 Diabetic Ulcer and has received a status of Not Healed. Subsequent wound encounter measurements are 2.2cm length x 1.5cm width x 0.3cm depth, with an area of 3.3 sq cm and a volume of 0.99 cubic cm. Hypergranulation was noted. No tunneling has been noted. No sinus tract has been noted. No undermining has been noted. There is a moderate amount of serosanguineous drainage noted which has no odor. The patient reports no wound pain due to the wound being insensate. The wound margin is callus. Wound bed has No epithelialization, No eschar, Yes slough, No granulation. The periwound skin moisture is normal. The periwound skin color is normal. The periwound skin exhibited: Callus. The periwound skin did not exhibit: Brawny Induration, Edema, Excoriation, Induration, Crepitus, Fluctuance, Friable, Rash. The temperature of the periwound skin is WNL. Periwound skin does not exhibit signs or symptoms of infection. Local Pulse is Palpable. Wound #12 Right, Plantar Metatarsal head first is a Alonzo Grade 2 Diabetic Ulcer and has received a status of Not Healed. Subsequent wound encounter measurements are 0.1cm length x 0.1cm width with no measurable depth, with an area of 0.01 sq cm . No tunneling has been noted. No sinus tract has been noted. No undermining has been noted. There was no drainage noted. The patient reports no wound pain due to the wound being insensate. The wound margin is callus. Wound bed has Yes epithelialization, No eschar, No slough, No granulation. The periwound skin moisture is normal. The periwound skin color is normal. The periwound skin exhibited: Callus. The periwound skin did not exhibit: Brawny Induration, Edema, Excoriation, Induration, Crepitus, Fluctuance, Friable, Rash. The temperature of the periwound skin is WNL. Periwound skin does not exhibit signs or symptoms of infection. Local Pulse is Normal. Neurological: Cranial nerves grossly intact with symmetric function normal by informal observation.. 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 A skin/ subcutaneous tissue level surgical debridement with a total area debrided of 3.3 sq cm was performed by Nando Howe MD. Subcutaneous was removed along with devitalized tissue: callus and slough. The following instrument(s) were used: curette. Pain control was achieved using 4% Lido. A time out was conducted prior to the start of the procedure. A minimal amount of bleeding was controlled with silver nitrate. The procedure was tolerated well with a pain level of 0 throughout and a pain level of 0 following the procedure. Post Debridement Measurements: 2.2cm length x 1.5cm width x 0.4cm depth; with an area of 3.3 sq cm and a volume of 1.32 cubic cm; General Notes: Callus removed. Additional Information Muscle fascia or bone removed and sent to pathology?: No PLAN Wound Orders: Wound #11 Left Metatarsal head first Anesthetic Topical Xylocaine to wound bed. - In clinic only. Cleanser Cleanse Wound: - Normal saline and gauze. May Shower. - Keep covered in shower with cast protector or plastic bag. Dressings Primary dressing: - TCC foam secured with paper tape. Cover and secure with: - Cotton cast padding wrapped around foot and ankle, and foam taped to pacheco to protect himanshu prominences. Off-Loading Total Contact Cast - Applied to left leg. Wound #12 Right, Plantar Metatarsal head first Anesthetic Topical Xylocaine to wound bed. - In clinic only. Cleanser Cleanse Wound: - Normal saline and gauze, may use distilled water at home. May Shower. - Keep covered in shower with cast protector or plastic bag. Dressings Primary dressing: - Foam and tape. Additional Orders: Off-Loading Keep weight off: - Both feet as much as possible. Follow-Up Appointments Return Appointment: - - One week Other information: If you develop fever, chills, increased pain, drainage, redness or swelling please call our office. If after hours, respond to the ER. Should you experience any significant changes in your wound(s) or have any questions regarding your home care instructions please contact the wound center @ [phone]. If after hours, contact your primary care physician or go to the hospital emergency room. Scribing Attestation I attest, as the nurse, that I scribed these orders for the physician. General Notes: Please finish taking doxycycline as prescribed. I've reviewed the clinician's documentation and agree with the evaluation and plan as written. In addition, the patient's ulcer demonstrates evidence of non-viable devitalized tissue which will continue to benefit from sharp debridement to help promote granulation and expedite healing. Also, the patient will complete his course of doxycycline as prescribed and we' ll continue offloading with a TCC adding addition foam to protect the left anterior lower leg abrasion. He's also been counseled again regarding hypoglycemia and will discuss this with his PCP. Electronic Signature(s) Signed By: Date: Nando Howe MD 06/18/2018 11:44:00 Entered By: Nando Howe on 06/18/2018 11:40:51
== END ==
PROVIDERS: Family Provider Physician Assistant Medical; PCP Physician Assistant Medical; Visit Provider Internal Medicine
DX: E11.621 Type 2 diabetes mellitus with foot ulcer (principal); L97.522 Non-pressure chronic ulcer of other part of left foot with fat layer exposed; B95.61 Methicillin susceptible Staphylococcus aureus infection as the cause of diseases classified elsewhere; B95.4 Other streptococcus as the cause of diseases classified elsewhere; L84 Corns and callosities; Z48.817 Encounter for surgical aftercare following surgery on the skin and subcutaneous tissue
CPT/HCPCS: 11042